=== PATIENT | male | born 1945 | race Caucasian/White ===

== ENCOUNTER 2019-04-07 09:56 | Outpatient (RCR) | payer MEDICARE, OTHER, SELFPAY | END 2019-04-07 23:59 | disposition home or self-care (01) | LOC: DC 09:56 | PROVIDERS: Family Provider Internal Medicine; PCP Internal Medicine; Visit Provider Internal Medicine | DX: E11.9 Type 2 diabetes mellitus without complications (principal); Z71.3 Dietary counseling and surveillance | CPT/HCPCS: 97802 ==

== ENCOUNTER → 2019-06-16 08:01 | Outpatient (CLI) | payer MEDICARE, OTHER, SELFPAY ==
[2019-06-14 05:57] VITALS: BMI 30.1
--- NOTE | 2019-06-14 10:00 | LES_PTH ---
PATIENT: DEBO HULL LOC: [facility] U#:[id number] AGE/SX: 80/M ROOM: RE06/16/[address]: Dr. Allan Gomes MD : 1945 BED: DIS: SPEC #: [id number] RECD: 06/16/19 07:38 STATUS: JUDY DESIRAE #: [id number] TIMO: 06/14/19 10:[address]: Allan Gmoes DEPT: SURGICAL PATHOLOGY RECD BY: Zara Castano ENTERED: 06/16/19 09:39 SP TYPE: Lesion OTHR DR: Dr. Aisha Ramos MD Tissues: A - TISSUE SURGICALLY REMOVED B - Skin of chest Procedures: Surgery Specimen Level IV HEADER OPERATION: Shave biopsy PRE-OP DIAGNOSIS: Right parietal lesion, chest lesion TISSUE SUBMITTED: A. Right parietal tissue, B. Chest tissue MICROSCOPIC DIAGNOSIS A. Skin lesion of parietal region, biopsy: Seborrheic keratosis, inflamed. B. Skin lesion of chest, shave biopsy: Superficial fragments of seborrheic keratosis. See comment. AM:mike 06/17/19 COMMENT B. The lesion extends to the deep margin of excision. Clinical correlation is suggested. MICROSCOPIC DESCRIPTION Slides are reviewed. GROSS DESCRIPTION A - Received in fixative is one container labeled with the patient's name and designated right parietal tissue. The specimen consists of a piece of elena-white skin ellipse measuring 4 x 2 cm and up to 0.5 cm in thickness. The skin surface shows a raised area measuring 2.5 x 1.5 cm. The specimen is inked, serially sectioned and submitted entirely in four cassettes. Cassette 1 contains the tips of the skin ellipse. B - Received in fixative is one container labeled with the patient's name and designated right chest. The specimen consists of a piece of elena-white skin measuring 0.5 x 0.3 x 0.1 cm. The specimen is inked and submitted entirely in one cassette. It will be bisected at the time of embedding. / SJ:mike 06/16/19 TC:5 CPT: 72912 x2
== END ==
PROVIDERS: Family Provider Internal Medicine; PCP Internal Medicine; Referring Provider Surgery; Visit Provider Surgery
DX: L82.0 Inflamed seborrheic keratosis (principal); L82.1 Other seborrheic keratosis
CPT/HCPCS: 88305

== ENCOUNTER → 2021-06-16 16:16 | Outpatient (CLI) | payer MEDICARE, OTHER, SELFPAY ==
--- NOTE | 2021-06-16 16:24 | CT_ITS ---
INDICATION: GROSS HEMATURIA EXAMINATION: CT ABDOMEN AND PELVIS WITH AND WITHOUT CONTRAST - CT Abdomen And Pelvis WO/W Contrast Injection TECHNIQUE: Helically acquired images were obtained of the abdomen and pelvis both before and after IV contrast. A radiation dose optimization technique was used for this scan. IV Contrast dosage and agent: 100 mL of ISOVUE 300 was administered intravenously. Oral contrast: None. COMPARISON: None. FINDINGS: LOWER CHEST: Lung bases are clear. No cardiomegaly or pericardial effusion. LIVER: Homogeneous. No focal mass. Multiple low-attenuation lesions visualized in the liver suggestive of simple cysts, the largest of which measures 2.1 x 1.6cm. GALLBLADDER AND BILIARY TREE: No calcified gallstones. No gallbladder distension or wall edema. No intra- or extrahepatic biliary ductal dilation. PANCREAS: No focal cystic or solid mass. SPLEEN: Normal size without focal cystic or solid mass. ADRENAL GLANDS: No nodules. KIDNEYS AND URETERS: Bilateral kidneys demonstrate unremarkable size and shape, unremarkable enhancement. Calcification visualized in the upper pole of the left kidney, nonobstructive no evidence of hydronephrosis or hydroureter is visualized bilaterally. No evidence of parenchymal renal masses. PERITONEUM: No ascites or free air. No other fluid collection. Mild stranding of the mesenteric fat planes visualized most prominent in the midabdomen seen on axial series 3 image 51. BOWEL: No evidence of acute appendicitis. No stomach or bowel distension. No focal inflammatory change. LYMPH NODES: Extensive scattered peritoneal lymph nodes are visualized that demonstrate mild enhancement largest of which measures 1.0 cm VESSELS: Aorta is non-dilated. URINARY BLADDER: Marked thickening of the wall of the urinary bladder is visualized, mild wall irregularity is visualized, there is an enhancing mass visualized in the posterior inferior best visualized on axial series 3 image 107 and coronal series 601 image 76 seen measuring 2.4 x 1.3 x 3.8 cm REPRODUCTIVE ORGANS: Enlargement of the prostate gland with heterogeneous enhancement and subtle scattered peripheral calcifications. ABDOMINAL WALL: No discrete abdominal wall hernia. Bilateral inguinal hernia with herniation of omentum is seen. Bilateral enhancing inguinal lymph nodes are seen. BONES: Degenerative bone changes. No lytic or blastic abnormality. CT/CT Abd/Pelvis W/WO Contrast IMPRESSION: 3.8 cm mass within the urinary bladder suggestive of malignancy. Marked thickening of the wall of the urinary bladder. Prominent prostate gland with heterogeneous enhancement and scattered calcifications. Bilateral enhancing inguinal lymph nodes are seen. Subtle scattered peritoneal lymph nodes visualized. Mild stranding of the peritoneal fat planes in the mid abdomen surrounding the mesenteric vessels, suggestive of vianca mesentry that could indicate underlying infiltration of the lymphatic system with malignancy. Electronically Signed: Sage Torrez MD at 10:08 EDT Tel , Service support ,
[2021-06-16 17:11] LABS: CREATININE FINGERSTICK 0.8 mg/dL (0.70-1.30); EGFR FINGERSTICK > 60.0000 mL/min (>60)
== END ==
PROVIDERS: PCP Internal Medicine; Referring Provider Nurse Practitioner Adult Health; Visit Provider Nurse Practitioner Adult Health
DX: R31.0 Gross hematuria (principal)
CPT/HCPCS: 74178; Q9967

== ENCOUNTER 2021-06-22 11:31 | Day surgery (SDC) | payer MEDICARE, OTHER, SELFPAY ==
--- NOTE | 2021-06-16 16:11 | EKG12_ITS ---
Test Reason : PRE-OP Blood Pressure : / mmHG Vent. Rate : 060 BPM Atrial Rate : 060 BPM P-R Int : 158 ms QRS Dur : 090 ms QT Int : 424 ms P-R-T Axes : 037 -15 -06 degrees QTc Int : 424 ms Normal sinus rhythm Normal ECG Confirmed by SENAIT EID, PEACE ([id number]), technical editor NEVILLE ANGLIN ([id number]) on 06/20/2021 10:54:58 AM Referred By: Teo Bee Confirmed By:CYNTHIA SAPP MD
[2021-06-22] VITALS (8 sets, daily range): BP systolic 107–128; BP diastolic 58–78; PULSE 53–62; RESP 16–18; TEMP 35.8–36.6; O2SAT 94–100; BMI 29.2
[2021-06-22] MEDS: Lactated Ringers 1,000 ML 100 ML IV (12:23)
[2021-06-22 12:31] LABS: Bedside Glucose 135 mg/dL (70-110)
--- NOTE | 2021-06-22 13:39 | HP.PCM_ITS ---
HPI - General HPI Narrative DEBO HULL, is a 76 M who presents transurethral resection of bladder tumor [facility] Medical History (Updated 06/15/21 @ 12:22 by Elisa Mata) Arthritis Asthma Diabetes Former smoker High blood cholesterol History of echocardiogram History of stress test Skin lesion Thyroid disease Wears glasses Home Medications atorvastatin 20 mg tablet 20 mg PO QDAY 09/07/17 [History Last Taken Unknown] finasteride 5 mg tablet 5 mg PO QDAY 09/07/17 [History Last Taken Unknown] levothyroxine 125 mcg capsule 125 mcg PO QDAY cap 09/07/17 [History Last Taken 06/22/21 07:00] sertraline 50 mg tablet 50 mg PO QDAY 09/07/17 [History Last Taken Unknown] sildenafil 100 mg tablet 100 mg PO ONCE PRN 09/07/17 [History Last Taken Unknown] tamsulosin 0.4 mg capsule 0.4 mg PO QDAY 09/07/17 [History Last Taken Unknown] albuterol sulfate 1 puff INHALATION PRN PRN 06/15/21 [History Last Taken Unknown] ciprofloxacin HCl [Cipro] 500 mg PO BID #14 tab 06/22/21 [Rx Last Taken Unknown] ibuprofen 600 mg PO Q6H PRN #14 tab 06/22/21 [Rx Last Taken Unknown] Allergy/AdvReac Type Severity Reaction Status Date / Time No Known Allergies Allergy Verified 06/15/21 12:09 Family History Mother Colon cancer Grandmother Colon cancer Grandfather CVA (cerebral vascular accident) Grandmother CVA (cerebral vascular accident) Surgical History (Updated 06/15/21 @ 12:22 by Elisa Mata) History of thyroidectomy Hx of colonoscopy Social History (Updated 08/05/19 @ 08:52 by Jade GAO PAPatricioC) Smoking Status: Former smoker alcohol intake: never Vital Signs Vital Signs Vital Signs: 06/22/21 11:59 06/22/21 12:02 Temperature 97.1 F L Temperature Source Temporal Pulse Rate 59 L Respiratory Rate 18 Respiratory Pattern Normal Blood Pressure 128/76 H Blood Pressure Mean 93 Blood Pressure Source Monitor Blood Pressure Position Semi-Fowlers Blood Pressure Location Left Arm Pulse Ox 100 Oxygen Delivery Method Room Air Weight Weight: 92.533 kg Body Mass Index (BMI) 29.2 Results Lab / Micro Data Labs: Laboratory Results - last 24 hr 06/22/21 11:51: POC Glucose 135 H
--- NOTE | 2021-06-22 13:40 | BLB_PTH ---
PATIENT: DEBO HULL LOC: [facility] [place] U[place][id number] AGE/SX: 76/M ROOM: RE06/22/[address]: Dr. Teo Bee MD : 1945 BED: DIS: 06/22/2021 SPEC #: [id number] RECD: 06/22/21 14:53 STATUS: JUDY RECharanjit #: [id number] TIMO: 06/22/21 13:[address]: Teo Bee DEPT: SURGICAL PATHOLOGY RECD BY: Celestina Higgins ENTERED: 06/23/21 07:36 SP TYPE: TURB OTHR DR: Dr. Aisha Ramos MD Tissues: Urinary bladder, NOS Procedures: Surgery Specimen Level V HEADER OPERATION: TURBT, large and instillation of Bryce C PRE-OP DIAGNOSIS: Gross hematuria, neoplasm of bladder, BPH with lower urinary tract symptoms TISSUE SUBMITTED: Bladder tumor MICROSCOPIC DIAGNOSIS Bladder tumor, TUR: Papillary urothelial carcinoma, invasive. See cancer summary in the comment section. AMINAH:mike 06/24/2021 COMMENT BLADDER CANCER (TUR) SUMMARY Procedure: Transurethral resection of bladder (TURBT) Tumor site: Not specified Histologic type: Papillary urothelial carcinoma, invasive Histologic grade: low grade (2/3). Tumor configuration: Papillary and endophytic Muscularis propria presence: muscularis propria (detrusor muscle) present. Lymphvascular invasion: Not identified Tumor extension: Tumor invades lamina propria (subepithelial connective tissue). Additional pathologic findings: Chronic follicular cystitis. - Amorphous calcified material, consistent with calculi. The above summary is in compliance with [employer] (CAP) Cancer Protocols Checklist and [place] Joint Committee on Cancer (AJCC), Staging Manual, 8th Ed. MICROSCOPIC DESCRIPTION Slides are reviewed. GROSS DESCRIPTION Received in fixative is one container labeled with the patient's name and designated bladder tumor. The specimen consists of multiple irregular fragments of elena-brown soft tissue that in aggregate measure 5 x 3 x 0.6 cm. The specimen is totally submitted in six cassettes. / SJ:rg 06/23/21 TC:0 CPT: 05112 ADDENDUM ADDENDUM ADDENDUM ADDENDUM ADDENDUM ADDENDUM ADDENDUM ADDENDUM ADDENDUM ADDENDUM ADDENDUM ADDENDUM 01/30/2023 09:05 ADDENDUM 01/30/2023 09:05 ADDENDUM 01/30/2023 09:05 ADDENDUM 01/30/2023 09:05 ADDENDUM 01/30/2023 09:05 This addendum is added to incorporate an outside pathology consultation report. The case was examined at [facility] (#[id number]) and the following diagnosis was rendered. Bladder tumor, TUR: Invasive urothelial carcinoma with inverted growth pattern, high grade. Lamina propria invasion is present. Muscularis propria is negative for neoplasia. Please see complete above mentioned consultation report in EMR
--- NOTE | 2021-06-22 13:40 | PCM.DC ---
Discharge Instructions Diet Discharge Diet: No restrictions Activity Discharge Activity: Return to Normal Activity and May Not Drive (while taking narcotic pain medications.) Dressing / Incision Call your doctor if you observe: Fever of 101 or Higher Follow Up Care Please Follow Up With: Teo Bee MD When: Call [phone] for an appointment Test Results: Test results from this visit will be discussed in further detail at your follow-up appointment, if applicable. Discharge Plan Admission Primary Reason for Your Visit: Transurethral resection of bladder cancer Attending Provider: Teo Bee Primary Care Provider: Aisha Ramos Instructions Patient Instructions: Discharge Instructions for ... Discharge Orders/Prescriptions Prescriptions: New ciprofloxacin HCl [Cipro] 500 mg tablet 500 mg PO BID Qty: 14 RF: 0 ibuprofen 600 mg tablet 600 mg PO Q6H PRN (Reason: pain) Qty: 14 RF: 0 Continued sertraline 50 mg tablet 50 mg PO QDAY RF: 0 finasteride [Proscar] 5 mg tablet 5 mg PO QDAY RF: 0 tamsulosin 0.4 mg capsule,extended release 24hr 0.4 mg PO QDAY RF: 0 atorvastatin [Lipitor] 20 mg tablet 20 mg PO QDAY RF: 0 sildenafil 100 mg tablet 100 mg PO ONCE PRN (Reason: Edema) RF: 0 levothyroxine 125 mcg capsule 125 mcg capsule 125 mcg PO QDAY RF: 0 albuterol sulfate 90 mcg/actuation HFA aerosol inhaler 1 puff INHALATION PRN PRN (Reason: ALLERGIES) RF: 0 Referrals / Follow Up: Teo Bee MD [STAFF PHYSICIAN] - Aisha Ramos MD [Primary Care Provider] - Disposition Disposition (needs filled in before D/C Order can be placed): Home, Self Care
[2021-06-22] MEDS: Cefazolin 2 GM in 0.9% Normal Saline 100 ML IV (13:42)
--- NOTE | 2021-06-22 14:27 | OP.PCM_ITS ---
Report of Operation Date of Procedure: 06/22/21 Pre-Operative Diagnosis: Large bladder tumor gross hematuria Post-Operative Diagnosis: Same Surgery/Procedure Performed:: Transurethral resection of a large bladder tumor instillation mitomycin-C Description of Surgical Findings:: 76-year-old male presented my office with painless gross hematuria and cystoscopy in the office demonstrated tumor in the bladder now comes into the surgery rose for transurethral section of this tumor instillation of chemotherapy in the bladder, patient was taken back to the operating room at the smooth induction of general anesthesia he was placed in dorsolithotomy position. I went to the bladder with a 24 Malawian resectoscope with no continuous-flow we prepped and draped the penis in usual sterile fashion. On inspection of the inside of the bladder there was a large 6-1/2 cm tumor in the trigone area of the bladder, after extensive search the left and right ureter orifice were identified and not involved. I then resected the tumor with the resectoscope resected superficially first and then resected down to the muscle layers the tumor appeared to be probably not invasive into the muscle but did appear to involve the lamina propria resection. And it was a very large tumor a lot of chips were removed and sent off to the pathologist for a specimen cauterized the base of the resection site so there was no bleeding placed a 20 Malawian catheter into the bladder with 30 cc balloon and then we gave him a treatment of chemotherapy in the bladder with mitomycin-C 40 mg of 40 cc the catheter was clamped for 1 hour afterwards and then released and then he will go home with a catheter. Surgeon: blayne Type of Anesthesia: General Drains: 20 fr Admit VTE Documentation VTE Present on Admission: No VTE Mechan Device Prophylaxis: SCD's VTE Pharm Prophylaxis ordered?: No
[2021-06-22 15:05] LABS: Bedside Glucose 120 mg/dL (70-110)
--- NOTE | 2021-06-22 15:18 | SUR.PHASEII ---
Phase 2 in PACU d/t staffing. VSS. Patient tolerating Bryce C instillation.
--- NOTE | 2021-06-22 15:53 | SUR.PHASEII ---
1536; hamilton unclamped and emptied for 200mL
== END 2021-06-22 16:25 | disposition home or self-care (01) ==
LOC: SDC 11:31 → AC 11:31
PROVIDERS: PCP Internal Medicine; Referring Provider Urology; Visit Provider Urology
PROC: 0T5B8ZZ Destruction of Bladder, Via Natural or Artificial Opening Endoscopic (ICD-10-PCS; CPT 51720; principal; 2021-06-22 13:30)
DX: C67.0 Malignant neoplasm of trigone of bladder (principal); J45.909 Unspecified asthma, uncomplicated; E11.9 Type 2 diabetes mellitus without complications; E03.9 Hypothyroidism, unspecified; Z79.899 Other long term (current) drug therapy; Z87.891 Personal history of nicotine dependence; Z79.890 Hormone replacement therapy
CPT/HCPCS: 00912; 51720; 52240; 82962; 88307; 93005; J7120; J2405; J3490; J9280

== ENCOUNTER → 2021-07-28 17:04 | Outpatient (CLI) | payer MEDICARE, OTHER, SELFPAY | PROVIDERS: PCP Internal Medicine; Visit Provider Urology | DX: R31.0 Gross hematuria (principal) | CPT/HCPCS: 87086 ==

== ENCOUNTER → 2021-08-01 16:42 | Outpatient (CLI) | payer MEDICARE, OTHER, SELFPAY ==
--- NOTE | 2021-08-01 | CYSPIN_PTH ---
PATIENT: DEBO HULL LOC: [facility] U#:[id number] AGE/SX: 80/M ROOM: RE08/01/[address]: Dr. Teo Bee MD : 1945 BED: DIS: SPEC #: [id number] RECD: 08/02/21 09:07 STATUS: JUDY DESIRAE #: [id number] TIMO: 08/01/21 00:[address]: Teo Bee DEPT: CYTOLOGY RECD BY: Ken Michelle ENTERED: 08/02/21 09:07 SP TYPE: CYSPIN FL OTHR DR: Dr. Aisha Ramos MD Tissues: Urine Procedures: Pap Stain (control) Special Stain Group II Cytospin Fluid HEADER OPERATION: Not noted PRE-OP DIAGNOSIS: Malignant neoplasm of bladder TISSUE SUBMITTED: Urine for cytology DIAGNOSIS CYTOLOGY Urine for cytology (cytospin): Positive for malignant cells consistent with urothelial carcinoma. AM:mike 08/02/2021 COMMENT Reference is made to the patient's urinary bladder, TUR ([id number]) in which invasive urothelial carcinoma was identified. CYTOLOGY STUDY Slides are reviewed. CYTOLOGY GROSS Received is 20 ml of gold cloudy fluid labeled with the patient's name and and designated per the requisition as urine. Submitted for cytology preparation. / mike 08/02/2021 TC:0 [facility]: [id number]
[2021-08-01 17:39] LABS: Cytology, Body Fluid / CSF SEE PATHOLOGY REPORT
== END ==
PROVIDERS: PCP Internal Medicine; Referring Provider Urology; Visit Provider Urology
DX: C67.0 Malignant neoplasm of trigone of bladder (principal)
CPT/HCPCS: 88108; 88313

== ENCOUNTER 2021-08-19 12:17 | Day surgery (SDC) | payer MEDICARE, OTHER, SELFPAY ==
[2021-08-19] VITALS (9 sets, daily range): BP systolic 115–125; BP diastolic 65–77; PULSE 58–90; RESP 16–18; TEMP 36.1–36.6; O2SAT 92–98; BMI 29.8
[2021-08-19] MEDS: Lactated Ringers 1,000 ML 15 ML IV (13:32)
[2021-08-19 13:41] LABS: Bedside Glucose 121 mg/dL (70-110)
--- NOTE | 2021-08-19 14:23 | PCM.HP.STD ---
HPI - General HPI Narrative DEBO HULL, is a 76 M who presents for transurethral resection of the bladder cancer and restaging resection he still had positive cytologies he underwent resection earlier for a very large tumor and his urine cytology came back positive inside the bladder so has a lot of inflammation there is concerned that the bladder is very thickened so we will get deeper biopsies of the bladder to rule out invasive cancer. PFSH Medical History (Updated 08/12/21 @ 15:06 by Bethany Peterson) Arthritis Asthma Diabetes Former smoker High blood cholesterol History of echocardiogram History of stress test Skin lesion Thyroid disease Wears glasses Home Medications atorvastatin 20 mg tablet 20 mg PO QDAY 09/07/17 [History Last Taken Unknown] finasteride 5 mg tablet 5 mg PO QDAY 09/07/17 [History Last Taken Unknown] levothyroxine 125 mcg capsule 125 mcg PO QDAY cap 09/07/17 [History Last Taken 08/19/21] sertraline 50 mg tablet 50 mg PO QDAY 09/07/17 [History Last Taken Unknown] sildenafil 100 mg tablet 100 mg PO ONCE PRN 09/07/17 [History Last Taken Unknown] tamsulosin 0.4 mg capsule 0.4 mg PO QDAY 09/07/17 [History Last Taken Unknown] albuterol sulfate 1 puff INHALATION PRN PRN 06/15/21 [History Last Taken Unknown] ibuprofen 600 mg PO Q6H PRN #14 tab 06/22/21 [Rx Last Taken Unknown] oxycodone-acetaminophen 1 tab PO Q4H PRN 7 Days #14 tab 08/19/21 [Rx Last Taken Unknown] sulfamethoxazole-trimethoprim [Bactrim DS] 1 tab PO BID #14 tab 08/19/21 [Rx Last Taken Unknown] Allergy/AdvReac Type Severity Reaction Status Date / Time No Known Allergies Allergy Verified 08/19/21 13:17 Family History Mother Colon cancer Grandmother Colon cancer Grandfather CVA (cerebral vascular accident) Grandmother CVA (cerebral vascular accident) Surgical History (Updated 08/19/21 @ 14:[address] Teo Bee MD) History of thyroidectomy Hx of colonoscopy Hx of transurethral destruction of bladder lesion Social History (Updated 08/05/19 @ 08:52 by Jade GAO PA-C) Smoking Status: Former smoker alcohol intake: never Vital Signs Vital Signs Vital Signs: 08/19/21 13:18 Temperature 97.5 F L Temperature Source Temporal Pulse Rate 61 Respiratory Rate 18 Respiratory Pattern Normal Blood Pressure 115/71 Blood Pressure Mean 85 Blood Pressure Source Monitor Blood Pressure Position Semi-Fowlers Blood Pressure Location Left Arm Pulse Ox 98 Oxygen Delivery Method Room Air Weight Weight: 94.3 kg Body Mass Index (BMI) 29.8 Results Lab / Micro Data Labs: Laboratory Results - last 24 hr 08/19/21 13:13: POC Glucose 121 H
--- NOTE | 2021-08-19 14:24 | PCM.DC ---
Discharge Instructions Diet Discharge Diet: No restrictions Activity Discharge Activity: Return to Normal Activity and May Not Drive (while taking narcotic pain medications.) Dressing / Incision Call your doctor if you observe: Fever of 101 or Higher Follow Up Care Please Follow Up With: Teo Bee MD When: Call [phone] for an appointment Test Results: Test results from this visit will be discussed in further detail at your follow-up appointment, if applicable. Discharge Plan Admission Primary Reason for Your Visit: bladder resection. Attending Provider: Teo Bee Primary Care Provider: Aisha Ramos Discharge Orders/Prescriptions Prescriptions: New sulfamethoxazole-trimethoprim [Bactrim DS] 800-160 mg tablet 1 tab PO BID Qty: 14 RF: 0 oxycodone-acetaminophen 5-325 mg tablet 1 tab PO Q4H PRN (Reason: pain) 7 Days Qty: 14 RF: 0 Continued sertraline 50 mg tablet 50 mg PO QDAY RF: 0 finasteride [Proscar] 5 mg tablet 5 mg PO QDAY RF: 0 tamsulosin 0.4 mg capsule,extended release 24hr 0.4 mg PO QDAY RF: 0 atorvastatin [Lipitor] 20 mg tablet 20 mg PO QDAY RF: 0 sildenafil 100 mg tablet 100 mg PO ONCE PRN (Reason: Edema) RF: 0 levothyroxine 125 mcg capsule 125 mcg capsule 125 mcg PO QDAY RF: 0 albuterol sulfate 90 mcg/actuation HFA aerosol inhaler 1 puff INHALATION PRN PRN (Reason: ALLERGIES) RF: 0 ibuprofen 600 mg tablet 600 mg PO Q6H PRN (Reason: pain) Qty: 14 RF: 0 Referrals / Follow Up: Teo Bee MD [STAFF PHYSICIAN] - Aisha Ramos MD [Primary Care Provider] - Disposition Disposition (needs filled in before D/C Order can be placed): Home, Self Care
--- NOTE | 2021-08-19 14:35 | BLB_PTH ---
PATIENT: DEBO HULL LOC: [facility] – [place] U#:[id number] AGE/SX: 76/M ROOM: RE08/19/[address]: Dr. Teo Bee MD : 1945 BED: DIS: 08/19/2021 SPEC #: [id number] RECD: 08/22/21 07:31 STATUS: JUDY DESIRAE #: [id number] TIMO: 08/19/21 14:[address]: Teo Bee DEPT: SURGICAL PATHOLOGY RECD BY: Ken Michelle ENTERED: 08/22/21 11:10 SP TYPE: TURB OTHR DR: Dr. Aisha Ramos MD Tissues: Urinary bladder, NOS Procedures: Surgery Specimen Level V HEADER OPERATION: Cysto, transurethral resection bladder, [place] PRE-OP DIAGNOSIS: Malignant neoplasm of bladder; gross hematuria TISSUE SUBMITTED: Bladder tissue biopsy MICROSCOPIC DIAGNOSIS Urinary bladder, transurethral resection: Papillary urothelial carcinoma. See synoptic report below. AM:mike 08/23/2021 COMMENT BLADDER CANCER (TUR) SUMMARY Procedure: Transurethral resection of bladder (TURBT) Tumor site: Not specified Histologic type: Papillary urothelial carcinoma, noninvasive Histologic grade: Low grade (1/3) Tumor configuration: Papillary Muscularis propria invasion: Not identified (detrusor muscle present) Lamina propria invasion: Not identified Lymphvascular invasion: Not identified Tumor extension: Noninvasive tumor Additional pathologic findings: Acute and chronic inflammation. The above summary is in compliance with [employer] (CAP) Cancer Protocols Checklist and [place] [employer] Committee on Cancer (AJCC), Staging Manual, 8th Ed. Reference is made to the patient's previous TUR ([id number]) in which papillary urothelial carcinoma was identified. MICROSCOPIC DESCRIPTION Slides are reviewed. GROSS DESCRIPTION Received in fixative is one container labeled with the patient's name and designated bladder tissue biopsy. The specimen consists of multiple irregular fragments of light elena soft tissue that in aggregate measure 1.8 x 1.2 x 0.2 cm. The specimen is totally submitted in one cassette. / AM:mike 08/22/21 TC:0 CPT: 46230
--- NOTE | 2021-08-19 15:14 | PCM.OPRPT ---
Report of Operation Date of Procedure: 08/19/21 Pre-Operative Diagnosis: Papillary urothelial carcinoma, invasive. See cancer summary in the comment section.SJ:mike 1COMMENTBLADDER CANCER (TUR) SUMMARYProcedure: Transurethral resection of bladder (TURBT)Tumor site: Not specifiedHistologic type: Papillary urothelial carcinoma, invasiveHistologic grade: low grade (2/3).Tumor configuration: Papillary and endophyticMuscularis propria presence: muscularis propria (detrusor muscle) present.Lymphvascular invasion: Not identified Tumor extension: Tumor invades lamina propria Post-Operative Diagnosis: same Surgery/Procedure Performed:: TURBT, restaging resection large. Description of Surgical Findings:: 76-year-old male who first presented to my office with gross hematuria in June of this past year he was found to have papillary urothelial carcinoma with invasion into the lamina propria at that time I thought I did a complete resection there was muscle in the specimen but no muscle invasion today when taken back for reresection also recent cystoscopy demonstrates some inflammation in the bladder and cytology was positive for cancer cells. Patient was taken back to the operating room after smooth induction of general anesthesia his penis and testicles were prepped and draped in usual sterile fashion, went into the bladder with a 24 Hebrew noncontinuous flow resectoscope identified the left and right ureteral orifice which were under involved the posterior aspect the bladder was very inflamed and thickened I did a resection of this it was a fairly large area resection about 4 cm wide and 5 cm long I then looked at the rest of the bladder I had good muscle in that resection I did not think that there was any active tumor here just some inflammation did not look like a cancer we will see what the pathology shows that she you see if that shows any cancer in the muscle. Rest of the bladder the some areas of inflammation but again no tumors that look visible to the eye just multiple areas of inflammation I cauterized some of these areas of inflammation. After resection was completed cauterization of the bladder was done there was no bleeding I drained the bladder patient anesthetic reversed and I will see him back in a few weeks to review the tissue report and the resection site. Surgeon: blayne Type of Anesthesia: General Drains: none Admit VTE Documentation VTE Present on Admission: No VTE Mechan Device Prophylaxis: SCD's VTE Pharm Prophylaxis ordered?: No
[2021-08-19] MEDS: Lactated Ringers 1,000 ML 100 ML IV (15:31)
[2021-08-19 16:21] LABS: Bedside Glucose 142 mg/dL (70-110)
--- NOTE | 2021-08-19 16:40 | SUR.PHASEI ---
AT 1535, PATIENT ADMITTED TO PACU 5. AUSCULTATED PATIENT'S LUNGS WITH INSPIRATORY WHEEZES BILATERALLY AND DIMINISHED BREATH SOUNDS ON LEFT SIDE. O2 SAT 84% ON ROOM AIR. O2 APPLIED AT 4L/NC. AT APPROXIMATELY, 1550, DUONEB AEROSOL BREATHING TREATMENT INITIATED. WITHIN 30 SECONDS TO 60 SECONDS DEVELOPED AUDIBLE STRIDOR. BREATHING TX DISCONTINUED IMMEDIATELY. DR. GRIMALDO CALLED AND CAME TO BEDSIDE TO EXAMINE PATIENT. DR. GRIMALDO ORDERED A RACEMIC EPI AEROSOL BREATHING TX. PATIENT STATED HE STARTED FEELING BETTER WITHIN 5 MINUTES OF STARTING THE RACEMIC EPI AEROSOL BREATHING TX.
[2021-08-19] MEDS: Racepinephrine HCl 0.5 ML VIAL.NEB. INHALATION (16:41)
--- NOTE | 2021-08-19 16:43 | CPS ---
Pt was given a duoneb at 1551. Pt started having increased difficulty breathing and stridor. Treatment was taken off immediately. Pt was then given a epi treatment.
== END 2021-08-19 17:56 | disposition home or self-care (01) ==
LOC: SDC 12:18 → AC 12:19
PROVIDERS: PCP Internal Medicine; Referring Provider Urology; Visit Provider Urology
PROC: 0TBB8ZZ Excision of Bladder, Via Natural or Artificial Opening Endoscopic (ICD-10-PCS; CPT 52240; principal; 2021-08-19 14:25)
DX: C67.9 Malignant neoplasm of bladder, unspecified (principal); J45.909 Unspecified asthma, uncomplicated; E07.9 Disorder of thyroid, unspecified; E11.9 Type 2 diabetes mellitus without complications; M19.90 Unspecified osteoarthritis, unspecified site; Z87.891 Personal history of nicotine dependence; Z79.899 Other long term (current) drug therapy; Z79.890 Hormone replacement therapy
CPT/HCPCS: 00912; 52240; 82962; 88307; 94640; J7120; A4216; J2405

== ENCOUNTER → 2022-01-19 | Outpatient (CLI) | payer MEDICARE, OTHER, SELFPAY ==
--- NOTE | 2022-01-18 14:00 | LES_PTH ---
PATIENT: DEBO HULL LOC: JESSI U#:[id number] AGE/SX: 76/M ROOM: RE01/19/[address]: Dr. Allan Gomes MD : 1945 BED: DIS: 01/19/2022 SPEC #: [id number] RECD: 01/19/22 11:53 STATUS: JUDY RECharanjit #: [id number] TIMO: 01/18/22 14:[address]: Allan Gomes DEPT: SURGICAL PATHOLOGY RECD BY: Celestina Higgins ENTERED: 01/19/22 12:36 SP TYPE: Lesion OTHR DR: Dr. Aisha Ramos MD Tissues: Skin of nose, NOS Procedures: Surgery Specimen Level IV HEADER OPERATION: Shave biopsy right nare skin lesion PRE-OP DIAGNOSIS: Right nare skin lesion TISSUE SUBMITTED: Right nare skin lesion shave MICROSCOPIC DIAGNOSIS Right nare skin lesion, shave biopsy: Consistent with verrucous keratosis. See comment. AMINAH:mike 01/20/2022 COMMENT The specimen consists of only superficial portion of the lesion. Clinical correlation and appropriate follow up are necessary. Case has been reviewed in consultation with Dr. Seymour who concurs with the above diagnosis. IDC:AM MICROSCOPIC DESCRIPTION Slides are reviewed. GROSS DESCRIPTION Received in fixative is one container labeled with the patient's name and designated right nare shave biopsy. The specimen consists of a fragment of elena-white skin measuring 0.2 x 0.1 x <0.1 cm. The specimen is totally submitted in one cassette. / AMINAH:mike 01/19/2022 TC:5 CPT: 97272
== END | disposition home or self-care (01) ==
LOC: LABSPEC 12:10
PROVIDERS: PCP Internal Medicine; Visit Provider Surgery
DX: L98.9 Disorder of the skin and subcutaneous tissue, unspecified (principal)
CPT/HCPCS: 88305

== ENCOUNTER → 2022-02-23 | Outpatient (CLI) | payer MEDICARE, OTHER, SELFPAY ==
--- NOTE | 2022-02-23 14:38 | CYSPIN_PTH ---
PATIENT: DEBO HULL LOC: JESSI U#:[id number] AGE/SX: 76/M ROOM: RE02/23/[address]: Dr. Teo Bee MD : 1945 BED: DIS: 02/23/2022 SPEC #: [id number] RECD: 02/24/22 07:10 STATUS: JUDY RECharanjit #: [id number] TIMO: 02/23/22 14:[address]: Teo Bee DEPT: CYTOLOGY RECD BY: Celestina Higgins ENTERED: 02/24/22 07:11 SP TYPE: CYSPIN FL OTHR DR: Dr. Aisha Ramos MD Tissues: Urine Procedures: Pap Stain (control) Special Stain Group II Cytospin Fluid HEADER OPERATION: Not noted PRE-OP DIAGNOSIS: Bladder neoplasm TISSUE SUBMITTED: Urine for cytology DIAGNOSIS CYTOLOGY Urine for cytology (cytospin): Negative for malignant cells. Marked acute inflammation. See comment. SJ:mike 02/24/2022 COMMENT Degenerative urothelial cells are also noted. Numerous organisms consistent with bacteria are also present. 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 CYTOLOGY STUDY Slides are reviewed. CYTOLOGY GROSS Received is 15.5 ml of yellow cloudy fluid labeled with the patient's name and and designated per the requisition as urine. Submitted for cytology preparation. / mike 02/23/2022 TC:2 CPT: 17166
[2022-02-23 17:51] LABS: Cytology, Body Fluid / CSF SEE PATHOLOGY REPORT
== END | disposition home or self-care (01) ==
PROVIDERS: PCP Internal Medicine; Visit Provider Urology
DX: C67.0 Malignant neoplasm of trigone of bladder (principal); R31.9 Hematuria, unspecified
CPT/HCPCS: 87077; 87086; 87088; 87186; 88108; 88313

== ENCOUNTER → 2022-05-29 | Outpatient (CLI) | payer MEDICARE, OTHER, SELFPAY ==
--- NOTE | 2022-05-29 09:17 | CYSPIN_PTH ---
PATIENT: DEBO HULL LOC: JESSI U#:[id number] AGE/SX: 77/M ROOM: RE05/29/[address]: Dr. Teo Bee MD : 1945 BED: DIS: 05/29/2022 SPEC #: [id number] RECD: 05/29/22 15:00 STATUS: JDUY MERRILL #: [id number] TIMO: 05/29/22 09:[address]: Teo Bee DEPT: CYTOLOGY RECD BY: Zara Castano ENTERED: 05/30/22 07:41 SP TYPE: CYSPIN FL OTHR DR: Dr. Aisha Ramos MD Tissues: Urine Procedures: Pap Stain (control) Special Stain Group II Cytospin Fluid HEADER OPERATION: Not noted PRE-OP DIAGNOSIS: Bladder cancer TISSUE SUBMITTED: Urine for cytology DIAGNOSIS CYTOLOGY Urine for cytology (cytospin): Negative for high-grade urothelial carcinoma (Marlen Cytology Category II). See comment. SJ:mike 05/30/2022 COMMENT The Marlen System for urine cytology diagnostic categorization was used in the evaluation of this case. Please make reference to previous specimens ([id number]) bladder tumor, TUR with diagnosis of ?papillary urothelial carcinoma, invasive? and ([id number]) urine for cytology with diagnosis of ?positive for malignant cells consistent with urothelial carcinoma.? CYTOLOGY STUDY Slides are reviewed. CYTOLOGY GROSS Received is 70 ml of cloudy yellow fluid labeled with the patient's name and and designated per the requisition as urine. Submitted for cytology preparation. / mike 05/29/2022 TC:5 CPT: 99806
[2022-05-29 17:16] LABS: Cytology, Body Fluid / CSF SEE PATHOLOGY REPORT
== END | disposition home or self-care (01) ==
LOC: LABSPEC 16:48
PROVIDERS: PCP Internal Medicine; Visit Provider Urology
DX: C67.8 Malignant neoplasm of overlapping sites of bladder (principal)
CPT/HCPCS: 88108; 88313

== ENCOUNTER → 2022-11-24 | Outpatient (CLI) | payer MEDICARE, OTHER, SELFPAY ==
--- NOTE | 2022-11-24 09:44 | CDU_ITS ---
Reason For Study: Amaurosis fugax Rt. Velocities/BP Lt. Velocities/BP Prox CCA 74.9/11.6 cm/sec. Prox CCA 76.8/12.6 cm/sec. Mid CCA 63.6/17.3 cm/sec. Mid CCA 77.8/19.2 cm/sec. Dist CCA 65.5/17.3 cm/sec. Dist CCA 59.8/16.3 cm/sec. Prox ICA 40.9/12.6 cm/sec. Prox ICA 58.9/16.3 cm/sec. Mid ICA 65.5/23 cm/sec. Mid ICA 76.2/25.6 cm/sec. Dist ICA 80.6/27.7 cm/sec. Dist ICA 80.6/25.6 cm/sec. Rt. ICA/CCA = 1.23. Lt. ICA/CCA = 1.05. Prox ECA 82.5/9.7 cm/sec. Prox ECA 74/10.7 cm/sec. Rt. Vert. 39/14.5 cm/sec. Lt. Vert. 44.3/14.6 cm/sec. Right Extracranial There is homogeneous, smooth atherosclerotic plaque noted in the right common carotid artery. There is homogeneous, smooth atherosclerotic plaque noted in the right internal carotid artery. There is intimal thickening but no significant atherosclerotic plaque noted in the right external carotid artery. Antegrade flow is noted in the right vertebral artery. Left Extracranial There is homogeneous, smooth atherosclerotic plaque noted in the left common carotid artery. There is intimal thickening but no significant atherosclerotic plaque noted in the left internal carotid artery. There is intimal thickening but no significant atherosclerotic plaque noted in the left external carotid artery. Antegrade flow is noted in the left vertebral artery. Procedure This is a Carotid Duplex examination using B-mode, color flow and specral Doppler. Carotid Duplex 78770. Exam performed in department. VL/Carotid Duplex Ultrasound Interpretation Summary With plaque at the proximal right internal carotid artery with less than 50% st enosis Less than 50% stenosis right external carotid artery Intimal thickening at the proximal left internal carotid artery with a focal sm all area of calcific plaque left carotid bulb. Less than 50% stenosis left internal carotid artery Less than 50% stenosis left external carotid artery Patent and antegrade vertebral arteries bilaterally Ordering Physician: Jalil Goel Referring Physician: Aisha Ramos M.D. Performed By: Wendie Aguirre RVT
== END | disposition home or self-care (01) ==
LOC: CVS 09:41
PROVIDERS: PCP Internal Medicine; Visit Provider Ophthalmology
DX: G45.3 Amaurosis fugax (principal)
CPT/HCPCS: 93880

== ENCOUNTER → 2022-11-29 | Outpatient (CLI) | payer MEDICARE, OTHER, SELFPAY ==
--- NOTE | 2022-11-29 13:15 | CT_ITS ---
STUDY: CT ABDOMEN AND PELVIS WITH AND WITHOUT CONTRAST REASON FOR EXAM: Male, 77 years old. BENING NEOPLASM OF LYMPH NODES RADIATION DOSAGE (If Supplied By Facility): CTDIvol = ( 18.42 ) mGy, DLP = ( 3812.61 ) mGycm TECHNIQUE: Transaxial images were obtained from the dome of the diaphragm to the symphysis pubis without oral contrast. IV 100mL Isovue-300 was administered. Sagittal and coronal images were reconstructed. Individualized dose optimization techniques were used for this CT. COMPARISON: Comparison is made with prior study June 16, 2012. FINDINGS: The visualized lung bases are unremarkable. The visualized portions of the heart are within normal limits. Stable small cysts in the liver. Normal gallbladder and extrahepatic biliary system. Normal spleen. Normal pancreas. Normal bilateral adrenal glands. Normal right kidney. Normal left kidney. Mild degree of nonspecific bilateral perinephric stranding. Tiny nonobstructive calculi seen in the upper pole calyx of the left kidney. There is evidence of a retroaortic left renal vein. Normal visualized stomach. Normal small intestine. Normal colon. The appendix is visualized and appears normal. Normal abdominal aorta. Normal inferior vena cava. Normal retroperitoneum. Diffuse bladder wall thickening. The previously seen enhancing mass at the base of the bladder posteriorly has decreased in size. Prostatic enlargement. The prostate measures 4.6 times by 5.2 cm. This causes indentation at the bladder base. Normal abdominal wall. There are diffuse degenerative changes of the visualized lumbar spine. CT/CT Abd/Pelvis W/WO Contrast IMPRESSION: Diffuse bladder wall thickening with prostatic enlargement and prostatic calcifications. There is evidence of indentation of the bladder base. Stable hepatic cysts. Electronically Signed: Yovani Mcwilliams MD at 15:56 EDT ,
[2022-11-29 13:30] LABS: CREATININE FINGERSTICK 1.1 mg/dL (0.70-1.30); EGFR FINGERSTICK > 60.0000 mL/min (>60)
== END | disposition home or self-care (01) ==
LOC: CT 12:53
PROVIDERS: PCP Internal Medicine; Referring Provider Urology; Visit Provider Urology
DX: D36.0 Benign neoplasm of lymph nodes (principal); C67.8 Malignant neoplasm of overlapping sites of bladder
CPT/HCPCS: 74178; Q9967

== ENCOUNTER → 2022-12-05 | Outpatient (CLI) | payer MEDICARE, OTHER, SELFPAY ==
--- NOTE | 2022-12-05 | IMM_PTH ---
PATIENT: DEBO HULL LOC: JESSI U#:[id number] AGE/SX: 77/M ROOM: RE12/05/[address]: Dr. Allan Gomes MD : 1945 BED: DIS: 12/05/2022 SPEC #: [id number] RECD: 12/07/22 14:01 STATUS: JUDY REQ #: [id number] TIMO: 12/05/22 00:[address]: Allan Gomes DEPT: IMMUNOHISTOCHEMISTRY RECD BY: Lyn Watson ENTERED: 12/07/22 14:04 SP TYPE: IMMUNO OTHR DR: Dr. Aisha Ramos MD Tissues: Inguinal lymph node, NOS Procedures: RCC (add) NAPSIN A (add) CK20 (add) CK5-6 (add) CK7 (add) CK8 (add) HEP PAR (add) KI-67 (add) P53 (add) TTF1 (add) Pankeratin (initial) P40 (add) CD44 (add) PSAP (add) PHYSICIAN & [address] [address] SPECIMEN INFORMATION: Tissue Source: Right groin lymph node Clinical Info: Enlarged lymph node right inguinal region Specimen Number: [id number] CPT code: 97006, 45502 x13 METHODOLOGY: Deparaffinized sections of prefer/formalin-fixed tissue or PAP/DQ stained slides are incubated with monoclonal/polyclonal antibodies/oligonucleotide probes. Localization is made via biotin free immunoperoxidase method. Appropriate controls are performed and reacted as expected. Results on target cell population are indicated in the following table: RESULTS: ANTIBODY / CLONE RESULT AE1-3 (AE1/AE3/PCK26) positive CK7 (OV-TL12/30) positive CK8 (01oqtmV36) positive CK20 (KS20.8) negative TTF-1 (8G7G3/1) negative Napsin A (Rabbit Polyclonal) negative HepPar (OCh1E5) negative RCC (PN-15) negative PSAP (PASE/4LJ) negative anti-CD44 (SP37) positive CK5-6 (D5 & 1684) positive, focal P40 (BC28) positive P53 (DO-7) positive, focal, wild-type pattern Ki-67 (30-9) positive, ~50% These tests were developed and their performance characteristics determined by [facility]. They may not have been cleared or approved by the U.S. Food and Drug Administration. The FDA has determined that such clearance or approval is not necessary. The above immunohistochemical/dualISH markers are ordered and reviewed by the Pathologist. INTERPRETATION: Right groin lymph node, ultrasound-guided core biopsy: Metastatic non-small cell carcinoma. See comment. SJ:mike 12/08/2022 Comment: IHC profile is compatible with clinical impression of urothelial primary. Focal squamous differentiation is also noted. Case has been reviewed in consultation with Dr. Seymour who concurs with the above diagnosis. IDC:AM
--- NOTE | 2022-12-05 14:45 | LYMN_PTH ---
PATIENT: DEBO HULL LOC: JESSI U#:[id number] AGE/SX: 77/M ROOM: RE12/05/[address]: Dr. Allan Gomes MD : 1945 BED: DIS: 12/05/2022 SPEC #: [id number] RECD: 12/05/22 15:16 STATUS: JUDY RECharanjit #: [id number] TIMO: 12/05/22 14:[address]: Allan Gomes DEPT: SURGICAL PATHOLOGY RECD BY: Celestina Higgins ENTERED: 12/06/22 09:26 SP TYPE: LYMPH NODE OTHR DR: Dr. Aisha Ramos MD Tissues: LYMPH NODE BIOPSY Procedures: Surgery Specimen Level IV HEADER OPERATION: Ultrasound-guided needle core biopsy, lymph node right groin PRE-OP DIAGNOSIS: Enlarged lymph node right inguinal region TISSUE SUBMITTED: Biopsy lymph node right groin MICROSCOPIC DIAGNOSIS Right groin lymph node, core biopsy: Lymph node tissue with metastatic non-small cell carcinoma. See comment. AMINAH:mike 12/07/2022 COMMENT Immunohistochemistry ([id number]) supports the above diagnosis. IHC profile is compatible with clinical impression of urothelial primary. Focal squamous differentiation is also noted. Please make reference to previous specimen [id number], bladder tumor, TUR with diagnosis of invasive urothelial carcinoma. Clinical correlation and appropriate follow up are necessary. Case has been reviewed in consultation with Dr. Seymour who concurs with the above diagnosis. IDC:AM MICROSCOPIC DESCRIPTION Slides are reviewed. GROSS DESCRIPTION Received in fixative is one container labeled with the patient's name and designated biopsy lymph node right groin. The specimen consists of two elongated fragments of elena soft tissue that in aggregate measure 1.5 x 0.3 x 0.1 cm. The specimen is totally submitted in one cassette. / AMINAH:mike 12/06/2022 TC:0 CPT: 19706 ADDENDUM ADDENDUM ADDENDUM ADDENDUM ADDENDUM ADDENDUM ADDENDUM ADDENDUM ADDENDUM ADDENDUM 01/30/2023 09:07 ADDENDUM 01/30/2023 09:07 ADDENDUM 01/30/2023 09:07 ADDENDUM 01/30/2023 09:07 ADDENDUM 01/30/2023 09:07 This addendum is added to incorporate an outside pathology consultation report. The case was examined at [facility] (#[id number]) and the following diagnosis was rendered. Right groin lymph node, core biopsy: Metastatic urothelial carcinoma. Please see complete above mentioned consultation report in EMR
== END | disposition home or self-care (01) ==
LOC: LABSPEC 16:29
PROVIDERS: PCP Internal Medicine; Referring Provider Surgery; Visit Provider Surgery
DX: C68.9 Malignant neoplasm of urinary organ, unspecified (principal); C77.4 Secondary and unspecified malignant neoplasm of inguinal and lower limb lymph nodes
CPT/HCPCS: 88305; 88341; 88342

== ENCOUNTER → 2022-12-20 | Outpatient (CLI) | payer MEDICARE, OTHER, SELFPAY ==
--- NOTE | 2022-12-20 07:04 | MRI_ITS ---
STUDY: MRI BRAIN WITH AND WITHOUT CONTRAST REASON FOR EXAM: Male, 77 years old. staging bladder cancer TECHNIQUE: Standardized multiplanar fat and water weighted pulse sequences were obtained. IV 19cc Clariscan was administered for the contrast portion of the examination. COMPARISON: None. FINDINGS: Normal size of the ventricles and extra-axial spaces for the patient''s age. There are multiple white matter hyperintensities, distributed throughout the deep white matter tracts of the cerebral hemispheres, consistent with moderate chronic white matter ischemic changes. There is no evidence for recent intracranial ischemia or other cause of cytotoxic edema on diffusion weighted imaging (DWI). Normal T2* images of the brain without demonstrated susceptibility artifact. There is no demonstrated hemosiderin stain. There are no focal brain parenchymal lesions or abnormally enhancing lesions. No vasogenic edema or mass effect is seen. There is no abnormal thickening or enhancement of meninges or dura or skull. Normal bilateral basal ganglia. Normal thalami. There is no extra-axial fluid accumulation. Normal flow voids within the major intracranial circulation suggesting patency by spin echo criteria. Normal venous enhancement. There is no enhancing intra-axial or extra-axial abnormality. Normal sella turcica, pituitary gland, infundibular stalk, optic chiasm and hypothalamus. Normal tectal plate and pineal gland. Normal midbrain, slime and medulla. Normal cerebellum. Normal basal cisterns. Normal bilateral temporal bones. Normal bilateral internal auditory canals. No demonstrated orbital abnormality, within the constraints of a routine brain study. Normal visualized paranasal sinuses. Normal calvarium and skull base. Normal visualized soft tissue structures. Normal visualized upper cervical spine. MRI/Brain W/WO Contrast IMPRESSION: 1. Moderate chronic changes of the brain, as described above. 2. There are no focal brain parenchymal lesions or abnormally enhancing lesions. No vasogenic edema or mass effect is seen. There is no abnormal thickening or enhancement of meninges or dura or skull. Electronically Signed: Cornelius Caceres MD at 13:11 EDT ,
== END | disposition home or self-care (01) ==
LOC: MRI 07:04
PROVIDERS: PCP Internal Medicine; Referring Provider Internal Medicine Hematology & Oncology; Visit Provider Internal Medicine Hematology & Oncology
DX: C67.9 Malignant neoplasm of bladder, unspecified (principal)
CPT/HCPCS: 70553; A9575

== ENCOUNTER 2023-02-13 10:37 | Day surgery (SDC) | payer MEDICARE, OTHER, SELFPAY ==
[2023-02-13] VITALS (8 sets, daily range): BP systolic 100–118; BP diastolic 62–81; PULSE 50–65; RESP 16–18; TEMP 36.4–36.6; O2SAT 94–99; BMI 28.4
--- NOTE | 2023-02-13 10:45 | PCM.HP.BLA ---
History and Physical Date of Admission: 02/13/23 Visit Reasons:?PORT PLACEMENT Chief Complaint: port placement Is patient in pain?: No Allergies ipratropium [From Atrovent] Allergy (Severe, Verified 02/12/23 13:17) Other Medications finasteride 5 mg tablet (Proscar) 5 mg PO QDAY 09/07/17 [History Confirmed 02/12/23] sertraline 50 mg tablet 50 mg PO QDAY 09/07/17 [History Confirmed 02/12/23] sildenafil 100 mg tablet 100 mg PO ONCE PRN Edema 09/07/17 [History Confirmed 02/12/23] tamsulosin 0.4 mg capsule 0.4 mg PO QDAY 09/07/17 [History Confirmed 02/12/23] albuterol sulfate 90 mcg/actuation aerosol inhaler 1 puff inhalation PRN PRN ALLERGIES 06/15/21 [History Confirmed 02/12/23] ibuprofen 600 mg tablet 600 mg PO Q6H PRN pain #14 tabs 06/22/21 [Rx Confirmed 02/12/23] atorvastatin 20 mg tablet (Lipitor) 40 mg PO QDAY 12/05/22 [History Confirmed 02/12/23] levothyroxine 125 mcg capsule 25 mcg PO QDAY 12/05/22 [History Confirmed 02/12/23] lidocaine-prilocaine 2.5 %-2.5 % topical cream 1 applic topical ONCE PRN port access 30 days #30 grams 02/07/23 [Rx Confirmed 02/12/23] ondansetron 8 mg disintegrating tablet 8 mg PO Q8H PRN nausea and vomiting #30 tabs 02/07/23 [Rx Confirmed 02/12/23] prochlorperazine maleate 10 mg tablet 10 mg PO Q6H PRN nausea and vomiting #30 tabs 02/07/23 [Rx Confirmed 02/12/23] PFSH Medical History? 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 History of cystoscopy History of thyroidectomy Hx of colonoscopy Hx of transurethral destruction of bladder lesion Family History? Mother Colon cancerGrandmother Colon cancerGrandfather CVA (cerebral vascular accident)Grandmother CVA (cerebral vascular accident) Social History? Smoking Status:? Former smoker alcohol intake:? never HPI HPI HPI: 77-year-old gentleman.? On February 07, 2023 and previous to that as well he was seen by hematology oncology for what was felt to be recurrent metastatic urothelial carcinoma of the right groin lymph node.? By report he has no evidence of additional metastatic disease.? He had a multidisciplinary conference at [facility] and neoadjuvant systemic chemotherapy recommended.? Patient may be considered for lymphadenectomy right groin versus radiation treatment.? He is referred now for placement of a port to facilitate his chemotherapy.? He is to receive cisplatin and gemcitabine ROS General General: No weight change, appetite, fatigue, colon cancer, breast cancer or weakness HEENT HEENT: No difficulty swallowing, eye injury, eye surgery, swollen glands or hoarseness Endo Endocrine: Yes thyroid cancer, Hair loss, heat intolerance and cold intolerance Skin Skin: Yes rash; No changing moles Breast Breast: No left breast lump, right breast lump, nipple discharge, breast pain, abnormal mammogram, abnormal US or breast enlargement Musc Musculoskeletal: Yes arthritis; No back problems, rheumatoid arthritis, gout or joint pain Cardio Cardiovascular: No murmur, pacemaker, heart disease, atrial fibrillation, high blood pressure, heart attack, heart stent, palpitations, shortness of breat with exertion or chest pain Psych Psychiatric: No depression, anxiety or hearing voices Resp Respiratory: No shortness of breath, No sleep apnea, No cough, No COPD, Yes asthma, No emphysema and No wheezing Gastro Gastrointestinal: No abdominal pain, No nausea or vomiting, No diarrhea, No constipation, No blood in stool, No acid reflux, No hemorrhoids, No ulcers, No gallbladder problem and No black,tarry stools Jewel Hematologic: No blood thinners, No blood disorders, No bleeding, No anemia and No blood clots Neuro Neurologic: No system reviewed and no additional complaints, except as documented, No as per HPI, No abnormal gait, No abnormal hearing, No abnormal movements, No abnormal speech, No behavioral changes, No burning sensations, No confusion, No convulsions, No disequilibrium, No dizziness, No localized weakness, No frequent falls, No headache(s), No lack of coordination, No loss of vision, No memory loss, No numbness, No other visual disturbances, No radicular pain, No restless legs, No sensory deficit, No syncope, No tingling, No tremor(s), No weakness and No other Exam Const General: cooperative, comfortable and no acute distress HENMT Head: normal to inspection Eyes General: appearance normal, both eyes and all related structures Neck Neck: normal visual inspection Chest Chest palpation & inspection: normal inspection of the chest Resp Effort & Inspection: normal respiratory effort Auscultation: clear to auscultation bilaterally Cardio Rate: regular rate Rhythm: regular rhythm GI Inspection: normal to inspection Palpation: soft and no hepatosplenomegaly Musc Cervical Spine: normal cervical lordosis Skin General: no rashes or lesions noted Neuro General: patient alert, patient awake and patient oriented x3 Extrem General: no calf tenderness Psych Appearance: grossly normal Assessment and Plan Assessment and Plan (1) 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 It is then likely that he will potentially have radiotherapy to the right groin.? It appears that a right groin lymphadenectomy will not be required at this time and he has been instructed in nor will he require a radical cystectomy.? We will try to schedule and expedite his care.? He is aware of the technique, benefit, risk, alternatives.? We will proceed as noted. Copy: Dr. Aisha Gomes M.D., F.A.C.S I have examined the patient and the H&P has been reviewed. There are no clinical changes since date of exam. Allan Gomes M.D., F.A.C.S.
--- NOTE | 2023-02-13 10:46 | DCINST_ITS ---
Discharge Instructions Procedure Port-A-Cath Diet Discharge Diet: No restrictions (Pain medication may cause nausea. You should typically eat light foods as you take your pain medication.) Activity Discharge Activity: Return to Normal Activity and May Shower (Leave the bandage on for 2-3 days. When you remove the bandage, leave the steri-strips intact until they fall off.) Additional Activity Instructions:: May not drive, work with heavy equipment, or sign legal documents for [address]. [address] if you are no longer taking narcotic pain medications. You may drive when you are no longer taking pain medications. Dressing / Incision Additional Dressing/Incision Instructions:: Leave the bandage on for 2-3 days. When you remove the bandage, leave the steri-strips intact until they fall off. Follow Up Care When: For any difficulties or concerns please contact the office at [phone] An additional office appointment will not be mandatory if you proceed as anticipated postoperatively Test Results: Test results from this visit will be discussed in further detail at your follow- up appointment, if applicable. Discharge Plan Admission Attending Provider: Allan Gomes Primary Care Provider: Aisha Ramos Discharge Orders/Prescriptions Prescriptions: No Action sertraline 50 mg tablet 50 mg PO QDAY finasteride [Proscar] 5 mg tablet 5 mg PO QDAY tamsulosin 0.4 mg capsule,extended release 24hr 0.4 mg PO QDAY sildenafil 100 mg tablet 100 mg PO ONCE PRN (Reason: Edema) levothyroxine 125 mcg capsule 125 mcg capsule 25 mcg PO QDAY atorvastatin [Lipitor] 20 mg tablet 40 mg PO QDAY lidocaine-prilocaine 2.5-2.5 % cream 1 applic topical ONCE PRN (Reason: port access) 30 Days Qty: 30 2RF ondansetron 8 mg tablet,disintegrating 8 mg PO Q8H PRN (Reason: nausea and vomiting) Qty: 30 2RF prochlorperazine maleate 10 mg tablet 10 mg PO Q6H PRN (Reason: nausea and vomiting) Qty: 30 2RF albuterol sulfate 90 mcg/actuation HFA aerosol inhaler 1 puff INHALATION PRN PRN (Reason: ALLERGIES) Label Comments: INHALE 2 PUFFS BY MOUTH EVERY 4 HOURS NEEDED for wheezing/ SHORTNESS OF BREATH DIRECTED ibuprofen 600 mg tablet 600 mg PO Q6H PRN (Reason: pain) Qty: 14 0RF Referrals / Follow Up: Aisha Ramos MD [Primary Care Provider] - Disposition Disposition (needs filled in before D/C Order can be placed): Home, Self Care
[2023-02-13] MEDS: Lactated Ringers 1,000 ML 15 ML IV (11:16)
[2023-02-13 12:27] LABS: Bedside Glucose 170 mg/dL (74-106)
[2023-02-13] MEDS: Cefazolin 2 GM in 0.9% Normal Saline 100 ML IV (13:30)
[2023-02-13] MEDS: Bupivacaine Mpf 0.5% 30 ML VIAL (13:45)
[2023-02-13] MEDS: Lidocaine 1% (20 ml mdv) 20 ML Vial (13:45)
--- NOTE | 2023-02-13 14:08 | OP.PCM_ITS ---
Report of Operation Date of Procedure: 02/13/23 Pre-Operative Diagnosis: Metastatic urinary bladder cancer Post-Operative Diagnosis: Same Surgery/Procedure Performed:: Right internal jugular 6 [place] PowerPort placement Reference [id number], lot [id number], expiry date 11/07/2024 Description of Surgical Findings:: Timeout and informed consent was obtained. 77-year-old gentleman was taken to the operating placed on the table underwent monitored and incision care. Ancef 2 g were given intravenously. The neck and chest were sterilely prepped and draped. 1% lidocaine mixed 50-50 with 0.5% Marcaine was used as a local anesthetic. A total of 24 cc was used. Under ultrasound guidance local was instilled into the right neck and then a micropuncture needle inserted in the right internal jugular vein followed by micropuncture wire and sheath dilator and then exchanged out for an 035 J-wire fluoroscopy demonstrated good positioning. Local was instilled down upon the right chest wall and a transverse incision was made second intercostal space electrocautery was used to make a subcutaneous pocket the tubing was tunneled from the neck to the chest sheath dilator was placed over the wire and the wire and dilator were removed the catheter was Quigley through the sheath the sheath was split the catheter was positioned at the SVC atrial junction the catheter was amputated connected to the port and secured with a port attachment device the port was placed in the pocket secured there with 2-0 silk skin edges proximal interrupted 3-0 Vicryl subdermal stitches the neck site was closed interrupted 5-0 Vicryl subdermal stitch Steri-Strips Telfa OpSite dressings applied the port was accessed it aspirated easily it was flushed with 2 cc of heparinized saline He tolerated the procedure well without apparent complication. Specimens none. Drains none. Blood loss minimal. He was taken to the recovery room in satisfactory condition without apparent complication stat portable chest x-ray is pending. Allan Gomes M.D., F.A.C.S. Surgeon: Allan Gomes Type of Anesthesia: Local MAC Anesthesiologist: Jordan Taylor
--- NOTE | 2023-02-13 14:22 | RAD_ITS ---
STUDY: X-RAY CHEST REASON FOR EXAM: Male, 77 years old. Line placement TECHNIQUE: Single AP portable view of the chest. COMPARISON: None. FINDINGS: A right-sided Port-A-Cath is in place with the tip at the junction of the superior vena cava and right atrium. EKG electrodes are seen. The lungs are clear and expanded. There is no demonstrated pleural abnormality. Normal size heart. Normal mediastinum and xiomara. Normal visualized pulmonary arteries. There is atherosclerotic tortuosity of the aortic arch and descending thoracic aorta. There are diffuse degenerative changes of the visualized thoracic spine. Normal visualized ribs, clavicles, and shoulders. There is no demonstrated abnormality of the visualized soft tissue structures of the upper abdomen. RAD/Chest 1 View (Portable) IMPRESSION: The tip of the right-sided barrera catheter is at the junction of the superior vena cava and right atrium. Electronically Signed: Yovani Mcwilliams MD at 14:44 EDT ,
== END 2023-02-13 15:22 | disposition home or self-care (01) ==
LOC: SDC 10:38 → AC 10:38
PROVIDERS: PCP Internal Medicine; Referring Provider Surgery; Visit Provider Surgery
PROC: (CPT 36561; principal; 2023-02-13 12:45)
DX: Z45.2 Encounter for adjustment and management of vascular access device (principal); C67.9 Malignant neoplasm of bladder, unspecified; E11.9 Type 2 diabetes mellitus without complications; E07.9 Disorder of thyroid, unspecified; J45.909 Unspecified asthma, uncomplicated; Z87.891 Personal history of nicotine dependence; Z79.899 Other long term (current) drug therapy
CPT/HCPCS: 36561; 00532; 71045; 77001; 82962; J7120; J2405

== ENCOUNTER 2023-04-10 16:00 | Outpatient (CLI) | payer MEDICARE, OTHER, SELFPAY | END 2023-04-10 23:59 | disposition home or self-care (01) | LOC: LABSPEC 16:03 | PROVIDERS: PCP Internal Medicine; Referring Provider Urology; Visit Provider Urology | DX: R31.9 Hematuria, unspecified (principal) | CPT/HCPCS: 87086 ==

== ENCOUNTER 2023-04-18 15:40 | Observation (INO) | payer MEDICARE, OTHER, SELFPAY ==
--- NOTE | 2023-04-16 15:58 | EKG12_ITS ---
Test Reason : PREOP Blood Pressure : / mmHG Vent. Rate : 076 BPM Atrial Rate : 076 BPM P-R Int : 144 ms QRS Dur : 084 ms QT Int : 386 ms P-R-T Axes : 049 -02 032 degrees QTc Int : 434 ms Normal sinus rhythm Normal ECG Confirmed by LOVE EID, SHAHNAZ ([id number]), purchase request editor NEVILLE ANGLIN ([id number]) on 04/17/2023 9:39:10 AM Referred By: Teo Bee Confirmed By:SHAHNAZ ALEMAN MD
[2023-04-18] VITALS (9 sets, daily range): BP systolic 98–112; BP diastolic 57–72; PULSE 68–85; RESP 16–18; TEMP 36.2–36.8; O2SAT 94–99; BMI 27.6
[2023-04-18] MEDS: Lactated Ringers 1,000 ML 15 ML IV ×2 (12:32→16:38)
[2023-04-18 13:03] LABS: Bedside Glucose 107 mg/dL (74-106)
--- NOTE | 2023-04-18 14:35 | PROS_PTH ---
PATIENT: DEBO HULL LOC: MS3 U#:[id number] AGE/SX: 78/M [place] [facility] [place]: Dr. Teo Bee MD : [id number] BED: 1 DIS: 04/19/2023 SPEC #: [id number] RECD: 04/19/23 07:36 STATUS: JUDY MERRILL #: [id number] TIMO: 04/18/23 14:[address]: Teo Bee DEPT: SURGICAL PATHOLOGY RECD BY: Celestina Higgins ENTERED: 04/19/23 10:00 SP TYPE: TURP OTHR DR: Dr. 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 Focal chronic inflammation and basal cell hyperplasia. Fragments of stone (gross only). AMINAH:miek 04/20/2023 MICROSCOPIC DESCRIPTION Slides are reviewed. GROSS DESCRIPTION Received is one container labeled with the patient's name and designated prostate tissue. The specimen consists of multiple irregular fragments of pink-elena, rubbery, soft tissue that in aggregate weigh 5.7 gm and measure in aggregate 6.0 x 4.0 x 1.0 cm. A few minute brownish-black stones are identified measuring <0.1 to 0.2 cm in greatest dimension. The entire soft tissue is submitted in six cassettes. The stones are for gross identification only. / AMINAH:mike 04/19/2023 TC:5 CPT: 54006
[2023-04-18] MEDS: Cefazolin 2 GM in 0.9% Normal Saline 100 ML IV (14:54)
--- NOTE | 2023-04-18 15:43 | PCM.HP.STD ---
HPI - General General Date of Service: 04/18/23 Chief Complaint: Frequency and nocturia obstructive prostate HPI Narrative DEBO HULL, is a 78 M who presents for transurethral resection of the prostate he has significant frequency nocturia incomplete bladder emptying we can proceed with a transurethral resection of prostate patient and family member using are aware that the surgery may not alleviate all his symptoms or may take time to recover to have his urinary symptoms improved but hopefully with the surgery he will have improvement in his urinary problems. 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 Prerenal azotemia Skin lesion Thrombocytopenia Thyroid disease Wears glasses Home Medications sertraline 50 mg tablet 50 mg PO QDAY 09/07/17 [History Last Taken 04/17/23] sildenafil 100 mg tablet 100 mg PO ONCE PRN Edema 09/07/17 [History Last Taken Unknown] albuterol sulfate 90 mcg/actuation aerosol inhaler 1 puff inhalation PRN PRN ALLERGIES 06/15/21 [History Last Taken Unknown] ibuprofen 600 mg tablet 600 mg PO Q6H PRN pain #14 tabs 06/22/21 [Rx Last Taken Unknown] atorvastatin 20 mg tablet (Lipitor) 40 mg PO QDAY 12/05/22 [History Last Taken 04/17/23] levothyroxine 125 mcg capsule 25 mcg PO QDAY 12/05/22 [History Last Taken 04/18/23] lidocaine-prilocaine 2.5 %-2.5 % topical cream 1 applic topical ONCE PRN port access 30 days #30 grams 02/07/23 [Rx Last Taken Unknown] ondansetron 8 mg disintegrating tablet 8 mg PO Q8H PRN nausea and vomiting #30 tabs 02/07/23 [Rx Last Taken Unknown] prochlorperazine maleate 10 mg tablet 10 mg PO Q6H PRN nausea and vomiting #30 tabs 02/07/23 [Rx Last Taken Unknown] betamethasone, augmented 0.05 % topical cream 1 applic topical DAILY 02/20/23 [History Last Taken Unknown] glipizide 5 mg tablet 5 mg PO BID 02/27/23 [History Last Taken 04/16/23] bisacodyl 5 mg tablet,delayed release (Dulcolax (bisacodyl)) 5 mg PO DAILY PRN constipation 03/06/23 [History Last Taken 04/17/23] docusate sodium 100 mg capsule (Stool Softener) 100 mg PO DAILY 03/06/23 [History Last Taken 04/17/23] polyethylene glycol 3350 17 gram oral powder packet (Miralax) 17 g PO DAILY PRN constipation 03/12/23 [History Last Taken 04/17/23] ciprofloxacin HCl 500 mg tablet (Cipro) 500 mg PO BID Prevent more infection 04/13/23 [History Last Taken 04/17/23] ciprofloxacin HCl 500 mg tablet (Cipro) 500 mg PO BID #10 tabs 04/18/23 [Rx Last Taken Unknown] Allergy/AdvReac Type Severity Reaction Status Date / Time ipratropium [From Atrovent] Allergy Severe Other Verified 04/16/23 14:50 Family History Mother Colon cancer Grandmother Colon cancer Grandfather CVA (cerebral vascular accident) Grandmother CVA (cerebral vascular accident) Surgical History History of cystoscopy History of thyroidectomy History of transurethral resection of bladder tumor (TURBT) Hx of colonoscopy Hx of transurethral destruction of bladder lesion Social History Smoking Status: Former smoker alcohol intake: never Vital Signs Vital Signs Vital Signs: 04/18/23 12:35 04/18/23 12:35 Temperature 97.7 F L Temperature Source Temporal Pulse Rate 68 Respiratory Rate 18 Respiratory Pattern Normal Blood Pressure 98/57 L Blood Pressure Mean 70 Blood Pressure Source Monitor Blood Pressure Position Semi-Fowlers Blood Pressure Location Left Arm Pulse Ox 99 Oxygen Delivery Method Room Air Weight Weight: 87.543 kg Body Mass Index (BMI) 27.6 Results Lab / Micro Data Labs: Laboratory Results - last 24 hr 04/18/23 12:23: POC Glucose 107 H
--- NOTE | 2023-04-18 15:44 | PCM.DC ---
Discharge Instructions Diet Discharge Diet: No restrictions Activity Discharge Activity: Return to Normal Activity Dressing / Incision Call your doctor if you observe: Fever of 101 or Higher Follow Up Care Please Follow Up With: Teo Bee MD When: Call [phone] for an appointment Test Results: Test results from this visit will be discussed in further detail at your follow-up appointment, if applicable. Discharge Plan Admission Primary Reason for Your Visit: [facility] Attending Provider: Teo Bee Primary Care Provider: Aisha Ramos Instructions Patient Instructions: TUR Home Recovery, [facility] Hospital Recovery Discharge Orders/Prescriptions Prescriptions: New ciprofloxacin HCl [Cipro] 500 mg tablet 500 mg PO BID Qty: 10 0RF Continued sertraline 50 mg tablet 50 mg PO QDAY sildenafil 100 mg tablet 100 mg PO ONCE PRN (Reason: Edema) levothyroxine 125 mcg capsule 125 mcg capsule 25 mcg PO QDAY atorvastatin [Lipitor] 20 mg tablet 40 mg PO QDAY lidocaine-prilocaine 2.5-2.5 % cream 1 applic topical ONCE PRN (Reason: port access) 30 Days Qty: 30 2RF ondansetron 8 mg tablet,disintegrating 8 mg PO Q8H PRN (Reason: nausea and vomiting) Qty: 30 2RF prochlorperazine maleate 10 mg tablet 10 mg PO Q6H PRN (Reason: nausea and vomiting) Qty: 30 2RF betamethasone, augmented 0.05 % cream 1 applic topical DAILY Patient Comments: Apply to rash on body you can see or feel 1x daily as needed. Avoid using on face. glipizide 5 mg tablet 5 mg PO BID Rx Instructions: administer if blood sugar >250 docusate sodium [Stool Softener] 100 mg capsule 100 mg PO DAILY bisacodyl [Dulcolax (bisacodyl)] 5 mg tablet,delayed release (DR/EC) 5 mg PO DAILY PRN (Reason: constipation) polyethylene glycol 3350 [Miralax] 17 gram powder in packet 17 g PO DAILY PRN (Reason: constipation) albuterol sulfate 90 mcg/actuation HFA aerosol inhaler 1 puff INHALATION PRN PRN (Reason: ALLERGIES) Patient Comments: INHALE 2 PUFFS BY MOUTH EVERY 4 HOURS NEEDED for wheezing/ SHORTNESS OF BREATH DIRECTED ibuprofen 600 mg tablet 600 mg PO Q6H PRN (Reason: pain) Qty: 14 0RF ciprofloxacin HCl [Cipro] 500 mg tablet 500 mg PO BID Discontinued finasteride [Proscar] 5 mg tablet 5 mg PO QDAY tamsulosin 0.4 mg capsule 0.8 mg PO QHS Other Ambulatory Orders: 12 Lead EKG (Routine) Timeframe: [id number] Location: None Selected Ordered By: Dr. Ángel Be Referrals / Follow Up: Teo Bee MD [Med Staff - Active Staff] - Aisha Ramos MD [Primary Care Provider] - Disposition Disposition (needs filled in before D/C Order can be placed): Home, Self Care
--- NOTE | 2023-04-18 15:44 | PCM.OPRPT ---
Report of Operation Date of Procedure: 04/18/23 Pre-Operative Diagnosis: BPH with obstruction Post-Operative Diagnosis: The same Surgery/Procedure Performed:: Transurethral resection of prostate Description of Surgical Findings:: In the preoperative setting I discussed with the patient how the surgery would be done with expect afterwards. We discussed how a prostate resection is done and we discussed the risk of the surgery including, bleeding, infection, retrograde ejaculation, changes with ejaculation or intercourse,. We discussed the possibility that the resection of the prostate may not alleviate his urinary symptoms. We discussed the small risk of developing scar tissue along the urethral channel and strictures. We also discussed the chance of the prostate could grow back and he may need further surgery or treatment in the future for prostate problems. Patient was taken back to the operating room, timeout procedure was performed, he was identified and marked and placed on the operating room table. He underwent general anesthesia. He was placed in dorsolithotomy position. Penis and testicles were prepped and draped in usual sterile fashion. Went into the bladder using the visual obturator with a resectoscope. Once inside the bladder identified the right and left ureteral orifice. I then identified the prostate and the anatomy of the prostate. I marked out the area of the sphincter and the verumontanum was identified. I then proceeded with the prostate resection first resected the median lobe. And then resected the right lobe of the prostate. Then to resect the left lobe of the prostate. I then resected the apical tissue of the prostate. This was a complete resection of all obstructive tissue to improve voiding and relieve obstruction. I then made sure that there was no injury to the sphincter or the verumontanum was still intact. At the end of the resection all the chips were Ellik out of the bladder. I then identified the left and right ureteral orifice and these were confirmed to be in good position and effluxing and not injured. The resectoscope was removed, a 22 Vincentian catheter was placed into the bladder on continuous irrigation. And the urine was fairly light pink color and draining normally. He was taken back to the PACU in good condition. Surgeon: Teo Bee Type of Anesthesia: General Estimated Blood Loss (mL): 10 Admit VTE Documentation VTE Present on Admission: No VTE Mechan Device Prophylaxis: SCD's VTE Pharm Prophylaxis ordered?: No
[2023-04-18 16:16] LABS: Bedside Glucose 114 mg/dL (74-106)
[2023-04-18] MEDS: Lactated Ringers 1,000 ML 125 ML IV (19:20)
[2023-04-18] MEDS: Docusate Sodium 100 MG Capsule 200 MG PO (21:36)
[2023-04-18] MEDS: Ciprofloxacin 500 MG Tablet PO (21:36)
[2023-04-18] MEDS: Sertraline 50 MG Tablet PO (21:37)
[2023-04-18] MEDS: Atorvastatin Calcium 40 MG Tablet PO (21:37)
[2023-04-19] MEDS: Lactated Ringers 1,000 ML 125 ML IV (01:14)
[2023-04-19 01:35] VITALS: BP 95/57; PULSE 62; RESP 16; TEMP 36.4; O2SAT 95
[2023-04-19] MEDS: Levothyroxine 125 MCG Tablet PO (05:24)
[2023-04-19 05:25] VITALS: BP 97/59; PULSE 70; RESP 18; TEMP 36.1; O2SAT 94
--- NOTE | 2023-04-19 05:41 | NURSING ---
Pt. stood at bedside- tolerated well. No dizziness.
--- NOTE | 2023-04-19 07:00 | PCM.PN.GU ---
Subjective Subjective Status post transurethral resection of the prostate, urine is fairly clear, we can remove the catheter this morning and patient can go home after he is able to urinate. Spoke to the family and the patient regarding postop care I will see him in 2 weeks for checkup Objective Data Objective Data Vital Signs: Vital Signs Temp Pulse Resp BP Pulse Ox O2 Del Method 96.9 F L 70 18 97/59 L 94 Room Air 04/19/23 05:25 04/19/23 05:25 04/19/23 05:25 04/19/23 05:25 04/19/23 05:25 04/19/23 05:25 Oxygen Delivery Method Room Air Weight: 87.54 kg Body Mass Index (BMI) 27.6 Intake & Output: Intake and Output for Last 24 Hours 04/17/23 04/18/23 04/19/23 23:59 23:59 23:59 Intake Total 1810 / 1910 1515.0 / 1515.0 Output Total 2600 / 2600 500 / 500 Balance -790 / -690 1015.0 / 1015.0 Lab / Micro Data Labs: Laboratory Results - last 24 hr 04/18/23 12:23: POC Glucose 107 H 04/18/23 15:59: POC Glucose 114 H
[2023-04-19] MEDS: 0.9% Saline Lock 10 ML Syringe IV (07:27)
--- NOTE | 2023-04-19 09:15 | CASEMGMT ---
PRERNA TANG NOTE: Pt being discharged. PRERNA TANG to room. Pt standing in room in front of window, dressed, and states is ready for discharge. Pt is scheduled to go to OP infusion suite for IV hydration once he leaves from the hospital. in room w/pt and states she has already picked up new Rx. They deny having any discharge planning needs/concerns. Margareth PARRAN PRERNA TANG
[2023-04-19 09:52] VITALS: BP 111/75; PULSE 64; RESP 18; TEMP 36.2; O2SAT 100
[2023-04-19] MEDS: Ciprofloxacin 500 MG Tablet PO (10:02)
[2023-04-19] MEDS: Docusate Sodium 100 MG Capsule PO (10:02)
== END 2023-04-19 10:25 | disposition home or self-care (01) ==
LOC: SDC 16:02 → MS3 16:02
PROVIDERS: Admitting Provider Urology; PCP Internal Medicine; Referring Provider Urology; Visit Provider Urology
PROC: (CPT 52601; principal; 2023-04-18 14:25)
DX: N40.1 Benign prostatic hyperplasia with lower urinary tract symptoms (principal); C77.4 Secondary and unspecified malignant neoplasm of inguinal and lower limb lymph nodes; C67.9 Malignant neoplasm of bladder, unspecified; D69.6 Thrombocytopenia, unspecified; E11.9 Type 2 diabetes mellitus without complications; Z79.84 Long term (current) use of oral hypoglycemic drugs; R33.8 Other retention of urine; Z87.891 Personal history of nicotine dependence; E78.00 Pure hypercholesterolemia, unspecified; N13.8 Other obstructive and reflux uropathy; Z79.899 Other long term (current) drug therapy; J45.909 Unspecified asthma, uncomplicated; M19.90 Unspecified osteoarthritis, unspecified site; E07.9 Disorder of thyroid, unspecified; Z79.890 Hormone replacement therapy; Z45.2 Encounter for adjustment and management of vascular access device
CPT/HCPCS: 52601; 00914; 82962; 88305; 93005; 96365; 96366; 96523; 99221; J7120; A4216; G0378; J2405

== ENCOUNTER → 2023-06-29 | Outpatient (CLI) | payer MEDICARE, OTHER, SELFPAY ==
--- NOTE | 2023-06-29 07:05 | CT_ITS ---
EXAM: CT ABDOMEN AND PELVIS WITH INTRAVENOUS CONTRAST CLINICAL INDICATION: ABNORMAL UPTAKE MESENTERY ON PET -- ORAL AND IV CONTRAST TECHNIQUE: Helically acquired images were obtained of the abdomen and pelvis with intravenous contrast. This CT exam was performed using one or more of the following dose reduction techniques: automated exposure control, adjustment of the mA and/or kV according to patient size, and/or use of iterative reconstruction technique. CONTRAST: IV 100mL Isovue-300 COMPARISON: PET CT scan 06/26/2023, CT Abdomen Pelvis dated 11/29/2022 FINDINGS: LOWER THORAX: Normal. Lung bases are clear. No cardiomegaly. No pericardial effusion. ABDOMEN: LIVER: Stable small liver cysts. PANCREAS: Normal. No focal cystic or solid mass. SPLEEN: Normal. Normal size without focal cystic or solid mass. ADRENALS: Normal. No nodules. KIDNEYS AND URETERS: Normal. Normal renal size and position. No hydronephrosis. STOMACH AND BOWEL: Normal. No bowel distention. No focal inflammatory change. PELVIS: APPENDIX: Appendix is visualized and normal in appearance. BLADDER: Asymmetric wall thickening of the urinary bladder. Neoplasm to BE differentiated from chronic cystitis. Defect along the base of the bladder suggestive of a TURP. REPRODUCTIVE: Unremarkable as visualized. No mass. ABDOMEN and PELVIS: INTRAPERITONEAL SPACE: Mild changes of mesenteric panniculitis, improved from prior study. No ascites or other fluid collection. No free air. BONES/JOINTS: No suspicious lytic or blastic abnormality. SOFT TISSUES: Small fat-containing bilateral inguinal hernias. VASCULATURE: Normal. Abdominal aorta is non-dilated. LYMPH NODES: Normal. No enlarged lymph nodes. CT/Abdomen/Pelvis WITH Contrast IMPRESSION: 1. Asymmetric wall thickening of the urinary bladder which will need further follow-up to differentiate cystitis from neoplasm. 2. Improving changes of mesenteric panniculitis. Electronically Signed: Aniket Hood MD at 9:52 EDT ,
== END | disposition home or self-care (01) ==
PROVIDERS: PCP Internal Medicine; Referring Provider Internal Medicine Hematology & Oncology; Visit Provider Internal Medicine Hematology & Oncology
DX: C67.9 Malignant neoplasm of bladder, unspecified (principal)
CPT/HCPCS: 74177; Q9967

== ENCOUNTER → 2024-02-20 | Outpatient (CLI) | payer MEDICARE, OTHER, SELFPAY ==
--- NOTE | 2024-02-20 08:19 | CT_ITS ---
STUDY: CT ABDOMEN AND PELVIS WITH CONTRAST REASON FOR EXAM: Male, 78 years old. F/U MESENTERIC LESION ON PET RADIATION DOSAGE (If Supplied By Facility): CTDIvol = ( 15.11 ) mGy, DLP = ( 1254.67 ) mGycm TECHNIQUE: Transaxial images were obtained from the dome of the diaphragm to the symphysis pubis with oral contrast. Oral and amp; IV Gastrografin and amp; 100mL Isovue-370 was administered. Sagittal and coronal images were reconstructed. 3-D images were reconstructed. Individualized dose optimization techniques were used for this CT. COMPARISON: Comparison is made with prior study dated June 29, 2023. FINDINGS: The visualized lung bases are unremarkable. The visualized portions of the heart are within normal limits. There is decreased attenuation of the liver consistent with steatosis. Stable 1.6 cm cyst in the anterior midportion of the right lobe of the liver. Normal gallbladder and extrahepatic biliary system. Normal spleen. Normal pancreas. Normal bilateral adrenal glands. Normal right kidney. Normal left kidney. Normal visualized stomach. Normal small intestine. Normal colon. The appendix is visualized and appears normal. Normal abdominal aorta. Normal inferior vena cava. Small lymph nodes are seen in the root of the mesentery. The previously seen increased density in the root of the mesentery has improved. Minimal residual changes persist. No definite mass lesion is seen. Normal retroperitoneum. Diffuse bladder wall thickening. There is enlargement of the prostate gland. The prostate measures 4.1 cm x 4.2 cm. This causes indentation of the bladder base. Prostatic calcifications are seen. Normal abdominal wall. There are degenerative changes of the visualized lumbar spine. There is straightening of the normal lumbar lordosis. CT/Abdomen/Pelvis WITH Contrast IMPRESSION: Small lymph nodes are seen in the root of the mesentery. No masses seen. The previously seen area of increased markings has improved. The remainder of examination is unchanged. Electronically Signed: Yovani Mcwilliams MD at 9:10 EDT ,
[2024-02-20 08:44] LABS: CREATININE FINGERSTICK 1.1 mg/dL (0.70-1.30); EGFR FINGERSTICK > 60.0000 mL/min (>60)
== END | disposition home or self-care (01) ==
PROVIDERS: PCP Internal Medicine; Referring Provider Internal Medicine Hematology & Oncology; Visit Provider Internal Medicine Hematology & Oncology
DX: C67.9 Malignant neoplasm of bladder, unspecified (principal); C77.4 Secondary and unspecified malignant neoplasm of inguinal and lower limb lymph nodes
CPT/HCPCS: 74177; Q9967; A4216

== ENCOUNTER 2024-06-04 14:11 | Inpatient (IN) | payer MEDICARE, OTHER, SELFPAY ==
[2024-06-04] VITALS (7 sets, daily range): BP systolic 84–106; BP diastolic 52–71; PULSE 68–105; RESP 12–19; TEMP 36.1–37; O2SAT 97–100; BMI 29.3; BMI 28.8
--- NOTE | 2024-06-04 14:14 | EKG12_ITS ---
Test Reason : CP Blood Pressure : / mmHG Vent. Rate : 099 BPM Atrial Rate : 099 BPM P-R Int : 162 ms QRS Dur : 084 ms QT Int : 350 ms P-R-T Axes : 041 -24 000 degrees QTc Int : 449 ms Normal sinus rhythm Nonspecific ST abnormality Abnormal ECG Confirmed by See Erickson ([id number]), film editor KVNG GARCÍA ([id number]) on 06/06/2024 9:32:45 AM Referred By: Confirmed By:See Erickson
--- NOTE | 2024-06-04 14:25 | RAD_ITS ---
STUDY: X-RAY CHEST REASON FOR EXAM: Male, 79 years old. Chest pain TECHNIQUE: Single AP portable view of the chest. COMPARISON: Comparison is made with prior study dated February 13, 2023. FINDINGS: A right-sided barrera catheter seen with the tip in the midportion of the superior vena cava. Elevation of the right hemidiaphragm. The lungs are clear. There is no demonstrated pleural abnormality. Normal size heart. Normal mediastinum and xiomara. Normal visualized pulmonary arteries. There is atherosclerotic calcification of the aortic arch with tortuosity. Normal visualized thoracic spine. Normal visualized ribs, clavicles, and shoulders. There is no demonstrated abnormality of the visualized soft tissue structures of the upper abdomen. RAD/Chest 1 View (Portable) IMPRESSION: No acute abnormality is seen. Electronically Signed: Yovani Mcwilliams MD at 14:42 EDT ,
--- NOTE | 2024-06-04 14:44 | ED.VIS.CHEST ---
HPI History of Present Illness Chief Complaint: Chest Pain Informant: patient Onset/Context/Timing Onset: Today Activity at onset: sudden Timing: Intermittent Quality: Positive for Aching Location: Right Parasternal and Left Parasternal Worsened By: Nothing Relieved By: Nothing Associated Symptoms: Positive for Nausea, Diaphoresis, Dyspnea and Lightheadedness; Negative for Vomiting, Cough, Fever, Acid Reflux or Palpitations Narrative Narrative: Patient presents with chest pain that began today while golfing. Patient states that he felt like he was lightheaded while he was golfing. Patient states he felt like he was going to pass out. Patient states he was able to hold onto the side of the golf cart to avoid falling and passing out. Patient states he had pain along the right and left parasternal area. Patient describes it as aching. Patient states it resolved after 1 hour. Patient states he felt lightheaded and had some diaphoresis with it. Patient also admits to some shortness of breath and nausea with the pain. Patient states his vision did get blurry. Patient states that he is diabetic and felt like his sugar might be getting low. Patient states he ate something with sugar and drank some soda. Patient states he thinks it might of helped a little bit. Patient states he was unable to finish the last hole of golf due to his symptoms. However, patient states he was able to drive himself home from the golf [place] which was a 30-[address] drive. 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 cancer Wears glasses Diabetes Arthritis Former smoker Asthma History of echocardiogram History of stress test Skin lesion Thyroid disease High blood cholesterol Home Medications ?Medication ?Instructions ?Recorded ?Last Taken ?Type sertraline 50 mg tablet 50 mg PO QDAY 09/07/17 06/03/24 History atorvastatin 20 mg tablet (Lipitor) 20 mg PO QHS cholesterol 08/08/23 06/03/24 History bupropion HCl 150 mg 24 hr tablet, 150 mg PO QAM 02/27/24 06/04/24 07:00 History extended release (Wellbutrin XL) albuterol sulfate 90 mcg/actuation 2 puff inhalation Q8H PRN wheezing 06/04/24 Unknown History aerosol inhaler levothyroxine 112 mcg tablet 112 mcg PO .qam thyroid 06/04/24 06/04/24 07:00 History Allergy/AdvReac Type Severity Reaction Status Date / Time ipratropium (From Atrovent) Allergy Severe Other Verified 06/04/24 14:11 Family History Mother Colon cancer Grandmother Colon cancer Grandfather CVA (cerebral vascular accident) Grandmother CVA (cerebral vascular accident) Surgical History S/P TURP (status post transurethral resection of prostate) History of transurethral resection of bladder tumor (TURBT) History of cystoscopy Hx of transurethral destruction of bladder lesion Hx of colonoscopy History of thyroidectomy Social History Smoking Status: Former smoker alcohol intake: never ROS ROS ED Constitutional Constitutional ED: Denies chills or fever(s) Eyes Eyes: Reports blurry vision; Denies change in vision ENT ENT ED: Denies rhinorrhea or sore throat Cardiovascular Cardiovascular: Reports chest pain; Denies palpitations Respiratory/Chest Respiratory/Chest: Reports dyspnea; Denies cough Gastrointestinal Gastrointestinal: Reports nausea; Denies abdominal pain or vomiting Genitourinary Genitourinary ED: Denies dysuria or hematuria Musculoskeletal Musculoskeletal: Denies back pain or neck pain Integumentary Denies abscess or rash Neurologic Neurologic: Reports weakness; Denies headache(s) Allergic/Immunologic Allergic/Immunologic ED: Denies mouth swelling or urticaria EXAM Physical Exam Const Vital Signs: 06/04/24 14:11 06/04/24 14:47 06/04/24 14:49 Temperature 97.1 F L Temperature Source Temporal Pulse Rate 105 H Respiratory Rate 18 Respiratory Effort Normal Non-Labored Blood Pressure 90/54 L Blood Pressure Mean 66 Pulse Ox 97 Oxygen Delivery Method Room Air Room Air 06/04/24 15:00 06/04/24 16:00 06/04/24 17:00 Temperature Temperature Source Pulse Rate 82 74 70 Respiratory Rate 17 19 H 16 Respiratory Effort Blood Pressure 93/52 L 97/71 84/67 L Blood Pressure Mean 66 80 74 Pulse Ox 97 98 Oxygen Delivery Method 06/04/24 18:00 Temperature 98.6 F Temperature Source Pulse Rate 68 Respiratory Rate 12 Respiratory Effort Blood Pressure 100/64 Blood Pressure Mean 76 Pulse Ox 99 Oxygen Delivery Method Positive well nourished and well developed General Appearance ED: well developed and NAD HEENT Reports moist mucous membranes normocephalic and atraumatic Neck supple and no JVD Chest Wall palpation of chest normal Resp normal respiratory effort and clear to auscultation bilaterally Cardio regular rate and regular rhythm GI soft to palpation, non-tender and non-distended Extremity normal to inspection Neuro oriented x3, CN's II-XII intact bilaterally and no sensory deficits noted Sensorium / Orientation: awake and alert Motor Exam: strength 5/5 throughout Psych mental status grossly normal Heart Score History: Moderately Suspicious ECG: Nonspecific Repolarization Age: >/= 65 years Risk Factors: 1 or 2 Risk Factors Troponin: </= Normal Limit Score: 5 MDM MDM MDM Narrative Medical decision making narrative: Differential diagnosis includes cardiac dysrhythmia, cardiac ischemia, electrolyte abnormality, pulmonary embolism, pneumonia, musculoskeletal pain, and anxiety. EKG will be obtained to assess for cardiac dysrhythmia and cardiac ischemia. Chest x-ray will be obtained to assess for pneumonia and pneumothorax. CBC will be obtained to assess for leukocytosis and anemia. Basic metabolic profile will be obtained to assess for electrolyte abnormality and renal function. High-sensitivity troponin will be obtained to assess for cardiac ischemia. 2-hour repeat high-sensitivity troponin will be obtained to assess for ongoing cardiac ischemia. PT with INR will be obtained to assess for coagulopathy. D-dimer will be obtained to assess for pulmonary embolism. Lab Data Attestation: I reviewed the patient's lab results. Lab results narrative: CBC was reviewed. There is a mild anemia with a hemoglobin of 12.3 and hematocrit of 37.7. Platelets were slightly low at 103. Basic metabolic profile was reviewed. Potassium was slightly low at 3.0. CO2 was slightly low at 18. Glucose was mildly elevated at 186. The remainder is within normal limits. PT with INR and PTT were reviewed and were within normal limits. D-dimer was reviewed and was normal at 0.31. Serum magnesium was reviewed and was slightly low at 1.3. High-sensitivity troponin was reviewed and was normal at 28. TSH was reviewed and was normal at 1.37. 2-hour repeat high-sensitivity troponin was reviewed and was elevated at 667. Labs: Laboratory Results - last 24 hr 06/04/24 06/04/24 13:28 17:07 WBC 5.6 RBC 3.88 L Hgb 12.3 L Hct 37.7 L MCV 97.2 H MCH 31.7 MCHC 32.6 RDW Std Deviation 48.9 H RDW Coeff of Ryan 13.8 Plt Count 103 L MPV 11.4 Immature Gran % (Auto) 0.400 Neut % (Auto) 75.3 H Lymph % (Auto) 12.7 L [place] % (Auto) 8.4 Eos % (Auto) 2.7 Baso % (Auto) 0.5 Absolute Neuts (auto) 4.2 Absolute Lymphs (auto) 0.71 L Nucleated RBC % 0 PT 14.9 INR 1.2 APTT 27.8 D-Dimer Quant (PE/DVT) 0.31 Sodium 141 Potassium 3.0 L Chloride 117 H Carbon Dioxide 18.0 L Anion Gap 6 BUN 16 Creatinine 1.29 Est GFR (MDRD) Af Amer 69 Est GFR (MDRD) Non-Af 57 L BUN/Creatinine Ratio 12.4 Glucose 186 H Calcium 6.6 L Magnesium 1.3 L Troponin I High Sens 28 667 H* TSH 1.370 Radiography Chest X-Ray - ED: 1 View, Read by ED Physician, Read by Radiologist and No Acute Disease Diagnostic Testing: Clinical Impression(s) from Imaging Studies Chest X-Ray 06/04/24 14:25 IMPRESSION: No acute abnormality is seen. Electronically Signed: Yovani Mcwilliams MD at 14:42 EDT , Portable 1 view chest x-ray was obtained. On my independent interpretation, lung tolentino are clear. There is normal cardiac silhouette. Bony thorax is normal. There is no acute process noted. Radiologist also interpreted the x-ray and agrees. EKG Initial EKG: Attestation: I personally reviewed and interpreted this EKG as follows: Interpretation: Sinus Rhythm (99) and Non-Specific ST Changes Comments: EKG was obtained. On my independent interpretation, it showed a normal sinus rhythm with a rate of 99. [place] interval, QRS interval, and QTc intervals were all normal. There is left axis deviation at -24. There are nonspecific ST-T wave changes. Prior EKG tracings: available for review Prior: Unchanged (04/16/2023) Management Discussion w/another healthcare provider: Hospitalist Treatment and Re-Evaluation :: Patient was given aspirin. Patient was advised of his findings. Patient has a HEART score of 5. Patient states it has been several years since he has had a stress test. Patient was given IV fluids. Because of this, I recommended admission to the hospital. Case was discussed with the hospitalist prior to the results of the repeat troponin. She will admit the patient to PCU for observation. I did discuss the results of the repeat troponin with the hospitalist. She will contact cardiology. Patient understood and was agreeable with the plan. All questions were answered. Discharge Plan Dx/Rx/DC Orders Clinical Impression: Chest pain, Diabetes, Near syncope, Elevated troponin Disposition Disposition: Acute Care Hospital [facility] Discharge Date/Time: 06/04/24 19:34
[2024-06-04 14:53] LABS: International Normalized Ratio 1.2; Prothrombin Time (Protime)PT. 14.9 SECONDS (11.7-14.9)
[2024-06-04 14:54] LABS: Absolute Lymphocyte Count 0.71 X10^3/uL (0.83-4.51); Absolute Neutrophil Count 4.2 X10^3/uL (2.0-7.7); Basophil# 0.03 X10^3/uL; Basophil% 0.5 % (0-1); Eosinophil# 0.15 X10^3/uL; Eosinophils% 2.7 % (0-5); Hematocrit 37.7 % (40-54); Hemoglobin 12.3 g/dL (13.0-16.5); Lymphocyte # 0.71 X10^3/ul (0.83-4.51); Lymphocyte % 12.7 % (19-41); Mean Corp Hgb Conc 32.6 g/dL (32-36); Mean Corpuscular Hgb 31.7 pg (27.0-32.0); Mean Corpuscular Volume 97.2 fL (80-94); Mean Platelet Vol. 11.4 fl (6.2-12.0); Monocyte# 0.47 X10^3/uL; Monocyte% 8.4 % (0-10); NRBC Flagged by Analyzer 0 % (0-5); Neutrophil # 4.22 X10^3/uL (2.7-7.7); Neutrophil % 75.3 % (47-70); Platelet Count 103 K/mm3 (150-450); RBC Distribution Width CV 13.8 % (11.6-14.6); RBC Distribution Width SD 48.9 fl (35.1-43.9); Red Blood Count 3.88 M/mm3 (4.6-6.2); White Blood Count 5.6 K/mm3 (4.4-11.0)
[2024-06-04 15:13] LABS: Anion Gap 6 (5-15); BUN 16 mg/dL (7-18); BUN/Creat Ratio 12.4 RATIO (10-20); Calcium,Total 6.6 mg/dL (8.5-10.1); Chloride 117 mmol/L (98-107); Creatinine, Serum 1.29 mg/dL (0.70-1.30); EST Glomerular Filtration Rate 57 mL/min (>60); Est Glom Filt Rate - Afr Amer 69 mL/min (>60); Glucose 186 mg/dL (74-106); Sodium Level 141 mmol/L (136-145); Troponin-I HS (w/2H Reflex) 28 pg/mL (3.0-78.0)
[2024-06-04] MEDS: Potassium Chloride Oral Tablet 20 MEQ 40 MEQ PO (15:25)
[2024-06-04 16:02] LABS: D-Dimer Quantitative (DVT/PE) 0.31 FEU/ug/m (0.27-0.49)
[2024-06-04 16:08] LABS: Magnesium 1.3 mg/dL (1.6-2.6)
[2024-06-04 16:15] LABS: Partial Thromboplast Time 27.8 Seconds (24.1-36.2)
[2024-06-04 16:41] LABS: Reflex Troponin-HS? (from REC) Y
[2024-06-04 17:38] LABS: Troponin-I HS 667 pg/mL (3.0-78.0)
[2024-06-04] MEDS: 0.9% Normal Saline (1000mL) 1,000 ML 1000 ML IV (17:55)
--- NOTE | 2024-06-04 17:57 | PCM.HP.STD ---
HPI - General General Date of Admission: 06/04/24 Date of Service: 06/04/24 Chief Complaint: Chest pain HPI Narrative DEBO HULL, is a 79 M with a history of bladder cancer in remission, diet-controlled diabetes, hypothyroidism, depression presented [facility] ED 06/04/2024 with an hour of dull aching chest pain with lightheadedness and blurry vision. He was playing golf and at the time and was on the 12 hole when he suddenly had a dull ache on either side of his sternum was feeling lightheaded, this persisted so patient went home and did not finish his last round of golf, on his way home he also had some blurry vision, the symptoms all persisted until patient was in the ED. Had not eaten or drank very well today and was sweating and blood pressure 80s to 90s systolic upon arrival. Otherwise lab workup initially not overtly remarkable and initial troponin within normal limits and patient symptoms resolved so hospitalist contacted for admission for chest pain rule out. Discussed with patient and currently pain-free and not feeling lightheaded anymore, notes that this has not happened to him before, no medication changes in the past few days. Did have COVID at the beginning of this month and has had some lingering cough and congestion but denies any new symptoms and has not had any fevers or chills. No swelling in lower extremities. 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 cancer Wears glasses Diabetes Arthritis Former smoker Asthma History of echocardiogram History of stress test Skin lesion Thyroid disease High blood cholesterol Home Medications ?Medication ?Instructions ?Recorded ?Last Taken ?Type sertraline 50 mg tablet 50 mg PO QDAY 09/07/17 06/03/24 History atorvastatin 20 mg tablet (Lipitor) 20 mg PO QDAY 08/08/23 06/03/24 History bupropion HCl 150 mg 24 hr tablet, 150 mg PO QAM 02/27/24 06/04/24 07:00 History extended release (Wellbutrin XL) albuterol sulfate 90 mcg/actuation 2 puff inhalation Q8H PRN wheezing 06/04/24 Unknown History aerosol inhaler levothyroxine 112 mcg tablet 112 mcg PO DAILY 06/04/24 06/04/24 07:00 History Allergy/AdvReac Type Severity Reaction Status Date / Time ipratropium (From Atrovent) Allergy Severe Other Verified 06/04/24 14:11 Family History Mother Colon cancer Grandmother Colon cancer Grandfather CVA (cerebral vascular accident) Grandmother CVA (cerebral vascular accident) Surgical History S/P TURP (status post transurethral resection of prostate) History of transurethral resection of bladder tumor (TURBT) History of cystoscopy Hx of transurethral destruction of bladder lesion Hx of colonoscopy History of thyroidectomy Social History Smoking Status: Former smoker alcohol intake: never ROS ROS Narrative General: Denies fever/chills HENT: Denies headache, denies stuffy nose, denies sore throat EYES: Had some blurry vision earlier when symptoms were present Resp: Has had a little bit of cough and congestion post-COVID Cardiac: Had dull substernal chest discomfort that lasted for over an hour GI: Denies abdominal pain, denies changes in bowel, denies nausea/vomiting : Denies changes in urination Extremity: Denies swelling MSK: Denies weakness Neuro: Denies any numbness/tingling Heme: Denies any bleeding or bruising Skin: Denies rashes Psychiatric: No complaints voiced Vital Signs Vital Signs Vital Signs: 06/04/24 14:11 06/04/24 14:47 06/04/24 14:49 Temperature 97.1 F L Temperature Source Temporal Pulse Rate 105 H Respiratory Rate 18 Respiratory Effort Normal Non-Labored Blood Pressure 90/54 L Blood Pressure Mean 66 Pulse Ox 97 Oxygen Delivery Method Room Air Room Air 06/04/24 15:00 06/04/24 16:00 06/04/24 17:00 Temperature Temperature Source Pulse Rate 82 74 70 Respiratory Rate 17 19 H 16 Respiratory Effort Blood Pressure 93/52 L 97/71 84/67 L Blood Pressure Mean 66 80 74 Pulse Ox 97 98 Oxygen Delivery Method Weight Weight: 92.8 kg Body Mass Index (BMI) 29.3 Physical Exam Narrative General: Alert, oriented, no apparent distress HEENT: Atraumatic, normocephalic Eyes: Anicteric, normal conjunctiva, extraocular movements grossly intact Neck: Supple Respiratory: Clear to auscultation bilaterally, normal respiratory effort Cardiovascular: Regular rate and rhythm GI: Soft, nontender, nondistended Extremities: No edema Musculoskeletal: Moving all extremities Neuro: No overt focal neurological deficits Skin: No rashes appreciated Psych: Cooperative Results Lab / Micro Data 06/04/24 13:28 06/04/24 13:28 Labs: Laboratory Results - last 24 hr 06/04/24 13:28: WBC 5.6, RBC 3.88 L, Hgb 12.3 L, Hct 37.7 L, MCV 97.2 H, MCH 31.7, MCHC 32.6, RDW Std Deviation 48.9 H, RDW Coeff of Ryan 13.8, Plt Count 103 L, MPV 11.4, Immature Gran % (Auto) 0.400, Neut % (Auto) 75.3 H, Lymph % (Auto) 12.7 L, [place] % (Auto) 8.4, Eos % (Auto) 2.7, Baso % (Auto) 0.5, Absolute Neuts (auto) 4.2, Absolute Lymphs (auto) 0.71 L, Nucleated RBC % 0, PT 14.9, INR 1.2, APTT 27.8, D-Dimer Quant (PE/DVT) 0.31, Sodium 141, Potassium 3.0 L, Chloride 117 H, Carbon Dioxide 18.0 L, Anion Gap 6, BUN 16, Creatinine 1.29, Est GFR (MDRD) Af Amer 69, Est GFR (MDRD) Non-Af 57 L, BUN/Creatinine Ratio 12.4, Glucose 186 H, Calcium 6.6 L, Magnesium 1.3 L, Troponin I High Sens 28, TSH 1.370 06/04/24 17:07: Troponin I High Sens 667 H* Imaging Radiology Impression Chest X-Ray 06/04/24 14:25 IMPRESSION: No acute abnormality is seen. Electronically Signed: Yovani Mcwilliams MD at 14:42 EDT , Assessment & Plan Assessment/Plan (1) Elevated troponin: PLAN: Plan # NSTEMI -Type I versus type II -Had chest discomfort, initial troponin 28 and up trended to 667 -Discussed with cardiology, patient currently chest pain-free and EKG with no apparent acute ischemic changes so was advised to give 1 full-time dose of Lovenox and consult cardiology with n.p.o. at midnight, possible cath tomorrow -Admit to telemetry -Echocardiogram -Continue aspirin and statin -Unable to start beta-shilo due to low blood pressure # Low blood pressure -Systolic 80s to 90s on arrival -Do suspect there is component of dehydration given patient had not eaten or drank very well and had lot of sweating -Received IV fluids, cardiology recommended trying to limit this to 1 L in the event that this is cardiac in nature -Echocardiogram -Is improving -Avoiding antihypertensives #Hypothyroidism -Continue Synthroid -TSH 1.37 #Hx bladder cancer in remission -Continues to follow with hematology and radiation oncology and presently in remission #Hx depression -Continue Wellbutrin and sertraline # Hypomagnesemia/hypokalemia -Replace, recheck in the a.m. #DVT ppx: Received full dose Lovenox x 1 Kanwal Turner MD Time spent in the patient's overall evaluation,decision-making process, review of diagnostic data, adjustment of management, discussion with other providers, nursing nursing and ancillary staff involved in patient's care documentation, 56 Minutes Charges/Coding Visit Charges Inpatient E&M: 47270 Init Hosp L2
--- NOTE | 2024-06-04 19:52 | ECHOCS_ITS ---
Reason For Study: CHEST PAIN Procedure This was a 2D Doppler, Color Flow transthoracic echocardiogram. The study was technically difficult. Contrast injection was performed. Exam performed portable in patient room. Left Ventricle Normal LV size. The estimated ejection fraction is 60 %. No evidence for diastolic dysfunction. No regional wall motion abnormalities noted. Right Ventricle Normal RV size. Normal systolic function. Atria The left and right atria are normal. No doppler evidence for ASD. Mitral Valve There is no mitral valve stenosis. No mitral valve insufficiency. Tricuspid Valve There is no tricuspid stenosis. Trivial tricuspid valve insufficiency. Unable to estimate RV systolic pressure due to insufficient tricuspid regurgitant envelope. Aortic Valve Trisinus/trileaflet aortic valve. There is no aortic stenosis. Trivial aortic valve insufficiency. Pulmonic Valve There is no pulmonic valvular stenosis. No pulmonic valve insufficiency. Great Vessels Mildly dilated aortic root. Pericardium/Pleural No pericardial effusion. Medication Diluted definity 1ml given slow IV push to enhance endocardial definition. MMode/2D Measurements & Calculations LVIDd: 4.5 cm IVSd: 1.1 cm LVOT diam: 2.1 cm LVIDs: 2.5 cm LVPWd: 1.2 cm RVDd: 3.4 cm FS: 43.7 % LVOT area: 3.5 cm2 Ao root diam: 3.9 cm asc Aorta Diam: 4.1 cm LAV(MOD-bp): 54.8 ml LAV(MOD-bp) Indexed: 26.2 ml/m2 LAV(MOD-sp2): 55.8 ml LAV(MOD-sp4): 54.3 ml SV(MOD-sp4): 62.2 ml SV(sp4-el): 60.8 ml LVAd ap4: 36.6 cm2 LVLd ap4: 9.1 cm EDV(MOD-sp4): 125.1 ml EDV(sp4-el): 125.4 ml LVAs ap4: 24.4 cm2 LVLs ap4: 7.8 cm ESV(MOD-sp4): 63.0 ml ESV(sp4-el): 64.7 ml EF(MOD-sp4): 49.7 % EF(sp4-el): 48.5 % LA A4 area: 19.8 cm2 LA dimension(2D): 3.8 cm RA A4 area: 9.3 cm2 Time Measurements MV dec time: 0.28 sec Doppler Measurements & Calculations MV E max sb: 55.2 cm/sec Lat Peak E' Sb: 10.5 cm/sec Med Peak E' Sb: 7.4 cm/sec MV A max sb: 51.5 cm/sec E/E' lat: 5.3 E/E' med: 7.5 MV E/A: 1.1 MV V2 max: 64.9 cm/sec MV dec slope: 200.0 cm/sec2 Ao V2 max: 88.8 cm/sec MV max P.7 mmHg Ao max P.2 mmHg MV V2 mean: 39.9 cm/sec Ao V2 mean: 63.0 cm/sec MV mean P.72 mmHg Ao mean P.8 mmHg MV V2 VTI: 23.1 cm Ao V2 VTI: 23.8 cm MVA(VTI): 3.6 cm2 AV (velocity ratio): 1.00 DOMINICK(I,D): 3.5 cm2 DOMINICK(V,D): 3.6 cm2 LV V1 max: 89.7 cm/sec SV(LVOT): 84.2 ml PA V2 max: 58.8 cm/sec LV V1 max P.2 mmHg PA V2 mean: 46.4 cm/sec LV V1 mean P.8 mmHg LV V1 mean: 63.4 cm/sec LV V1 VTI: 23.7 cm PI end-d sb: 70.5 cm/sec ECHO/Echo Complete W/ Contrast Interpretation Summary The estimated ejection fraction is 60 %. No evidence for diastolic dysfunction. Trivial aortic valve insufficiency. Mildly dilated aortic root. Ordering Physician: Kanwal Turner Referring Physician: MATTEO REBOLLAR Performed By: Chela Suarez and Student
--- NOTE | 2024-06-04 19:52 | EKG12_ITS ---
Test Reason : NSTEMI ADMIT Blood Pressure : / mmHG Vent. Rate : 074 BPM Atrial Rate : 074 BPM P-R Int : 172 ms QRS Dur : 080 ms QT Int : 418 ms P-R-T Axes : 045 -13 -49 degrees QTc Int : 463 ms Normal sinus rhythm Nonspecific ST and T wave abnormality Abnormal ECG When compared with ECG of 04-JUN-2024 14:20, MANUAL COMPARISON REQUIRED, DATA IS UNCONFIRMED Confirmed by See Erickson ([id number]), advertising editor NEVILLE ANGLIN ([id number]) on 06/05/2024 7:54:12 AM Referred By: Confirmed By:See Erickson
[2024-06-04 20:52] LABS: Troponin-I HS 981 pg/mL (3.0-78.0)
[2024-06-04] MEDS: 0.9% Saline Lock 10 ML Syringe IV ×2 (21:04→23:23)
[2024-06-04] MEDS: Calcium Gluconate IV 2 GM in 0.9% Normal Saline (100mL Bag) 100 ML IV (21:08)
[2024-06-04] MEDS: Enoxaparin 100 MG/ML Syringe 90 MG SC (21:09)
[2024-06-04] MEDS: Sertraline 50 MG Tablet PO (21:12)
[2024-06-04] MEDS: Atorvastatin Calcium 40 MG Tablet PO (21:12)
[2024-06-04] MEDS: Magnesium Sulfate 4gm/100mL 4 GM/100 ML IV.SOLN. IV (23:22)
[2024-06-05] VITALS (11 sets, daily range): BP systolic 95–119; BP diastolic 46–76; PULSE 57–71; RESP 14–18; TEMP 36.4–36.6; O2SAT 97–99; BMI 28.8
--- NOTE | 2024-06-05 05:55 | EKG12_ITS ---
Test Reason : PRE-OP Blood Pressure : / mmHG Vent. Rate : 058 BPM Atrial Rate : 058 BPM P-R Int : 188 ms QRS Dur : 084 ms QT Int : 458 ms P-R-T Axes : 000 -02 -44 degrees QTc Int : 449 ms Sinus bradycardia Nonspecific ST and T wave abnormality Abnormal ECG When compared with ECG of 04-JUN-2024 20:27, MANUAL COMPARISON REQUIRED, DATA IS UNCONFIRMED Confirmed by LOVE EID, SHAHNAZ ([id number]), editorial clerk NEVILLE ANGLIN ([id number]) on 07/03/2024 2:13:56 PM Referred By: Confirmed By:SHAHNAZ ALEMAN MD
[2024-06-05 06:21] LABS: Absolute Lymphocyte Count 1.13 X10^3/uL (0.83-4.51); Absolute Neutrophil Count 2.2 X10^3/uL (2.0-7.7); Basophil# 0.03 X10^3/uL; Basophil% 0.7 % (0-1); Eosinophil# 0.27 X10^3/uL; Eosinophils% 6.5 % (0-5); Hematocrit 35.9 % (40-54); Hemoglobin 11.8 g/dL (13.0-16.5); Lymphocyte # 1.13 X10^3/ul (0.83-4.51); Mean Corp Hgb Conc 32.9 g/dL (32-36); Mean Corpuscular Hgb 32.1 pg (27.0-32.0); Mean Corpuscular Volume 97.6 fL (80-94); Mean Platelet Vol. 11.2 fl (6.2-12.0); NRBC Flagged by Analyzer 0 % (0-5); Neutrophil # 2.24 X10^3/uL (2.7-7.7); Neutrophil % 53.6 % (47-70); POSITIVE COUNT YES; Platelet Count 95 K/mm3 (150-450); RBC Distribution Width CV 13.9 % (11.6-14.6); RBC Distribution Width SD 50.3 fl (35.1-43.9); Red Blood Count 3.68 M/mm3 (4.6-6.2); White Blood Count 4.2 K/mm3 (4.4-11.0)
[2024-06-05 06:30] LABS: International Normalized Ratio 1.2; Prothrombin Time (Protime)PT. 14.7 SECONDS (11.7-14.9)
[2024-06-05] MEDS: Levothyroxine 112 MCG Tablet PO (06:30)
[2024-06-05] MEDS: Aspirin E.C. 81 MG Tablet PO (06:31)
[2024-06-05 06:50] LABS: Troponin-I HS 704 pg/mL (3.0-78.0)
[2024-06-05 06:56] LABS: Anion Gap 1 (5-15); BUN 19 mg/dL (7-18); BUN/Creat Ratio 13.9 RATIO (10-20); Chloride 112 mmol/L (98-107); Creatinine, Serum 1.37 mg/dL (0.70-1.30); EST Glomerular Filtration Rate 53 mL/min (>60); Est Glom Filt Rate - Afr Amer 64 mL/min (>60); Estimated Creatinine Clearance 48.81 ml/min; Glucose 135 mg/dL (74-106); Magnesium 2.9 mg/dL (1.6-2.6); Potassium 4.3 mmol/L (3.5-5.1); Sodium Level 138 mmol/L (136-145)
--- NOTE | 2024-06-05 08:25 | CON.PCM.CA_ITS ---
Assessment & Plan Assessment/Plan (1) NSTEMI (non-ST elevated myocardial infarction): PLAN: Patient's symptoms, elevated troponins, and evolution of his EKG are suggestive of a non-ST segment elevation myocardial infarction type I. The patient has remained pain-free since admission. He is not on beta-shilo due to heart rate in the 55 to 65 bpm range with a blood pressure in the 85-90 systolic range. This is partially related to dehydration which is being gingerly replaced. The patient received a single dose of full weighted Lovenox last evening. He has been n.p.o. after midnight. He is not allergic to contrast. The patient is recommended to have invasive cardiac evaluation with left heart catheterization and possible stenting as indicated. The cath and stenting procedures risk/benefit and alternatives were explained to the patient and his in detail they voiced understanding and agreed to proceed as outlined. (2) Dehydration: PLAN: Patient's lab work and hypotensive presentation in the face of playing golf without eating or drinking yesterday is consistent with his being dehydrated. He has been gently rehydrated overnight. His creatinine is up slightly to 1.37. 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 He has not been on medical therapy he has not required it has been diet and exercise controlled. The patient is not obese. (4) High blood cholesterol: PLAN: Patient's lipids in February 2024 total cholesterol was 118 triglycerides 126 LDL 57 and HDL 26 with normal liver function test on his current atorvastatin dose. This represents excellent control and no further manipulation is indicated at this time. The patient is also hypothyroid on replacement his TSH was normal at 1.37 June 04, 2024. PLAN: Plan 1. Will rehydrate with normal saline at 100 cc an hour prior to the catheterization. 2. Reevaluate basic metabolic panel in 24 hours. 3. Proceed with left heart catheterization to define his coronary anatomy. 4. Further recommendations following the outcome of the catheterization. HPI Consult Data Date of Consult: 06/05/24 HPI Narrative Reason for Consultation: Chest pain with positive cardiac enzymes HPI Narrative: DEBO HULL, is a 79 M who presents with a history of bilateral stomach discomfort while playing golf yesterday. This occurred at approximate 1130 hrs. The patient continued to finish his round of golf he was on the 12th hole when it started. He also had some lightheadedness and some visual changes. The patient went home he actually stumbled into the house according to his and she called EMS. By the time he got to the emergency department all of his symptoms had resolved. His initial set enzymes troponin was 28-second set came back 600/3 at 904 set was back down to 700. Patient's initial EKG showed normal sinus rhythm and was completely normal. Subsequent EKG showed flattening of the T waves and minor nonspecific ST-T changes. The patient carries a history of bladder cancer status post indwelling therapy as well as systemic chemotherapy with cisplatin him and another drug. This is caused some transient renal insufficiency per the patient and his . The patient has had subsequent CT scans without any contrast-induced nephropathy or allergic reactions. The patient is very active in his home environment he does admit to at least 1 other episode similar to this where the symptoms lasted a shorter period of time about 10 minutes when he was active. There is a family history of late in life coronary artery disease his father had bypass graft surgery. The patient is not hypertensive in fact his blood pressure runs low in the 90-100 systolic range. He does have a history of hyperlipidemia on atorvastatin which is well-controlled he has a history of hypothyroidism. The patient smoked but he quit 45 years ago. He is diet controlled diabetic. The patient's had no recurrence of his symptoms since hospitalization. His creatinine has increased slightly and it was felt that he was dehydrated upon presentation with a low blood pressure in the 80-90 systolic range. 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 cancer Wears glasses Diabetes Arthritis Former smoker Asthma History of echocardiogram History of stress test Skin lesion Thyroid disease High blood cholesterol Home Medications ?Medication ?Instructions ?Recorded ?Last Taken ?Type sertraline 50 mg tablet 50 mg PO QDAY 09/07/17 06/03/24 History atorvastatin 20 mg tablet (Lipitor) 20 mg PO QHS cholesterol 08/08/23 06/03/24 History bupropion HCl 150 mg 24 hr tablet, 150 mg PO QAM 02/27/24 06/04/24 07:00 History extended release (Wellbutrin XL) albuterol sulfate 90 mcg/actuation 2 puff inhalation Q8H PRN wheezing 06/04/24 Unknown History aerosol inhaler levothyroxine 112 mcg tablet 112 mcg PO .qam thyroid 06/04/24 06/04/24 07:00 History Allergy/AdvReac Type Severity Reaction Status Date / Time ipratropium (From Atrovent) Allergy Severe Other Verified 06/04/24 14:11 Family History Mother Colon cancer Grandmother Colon cancer Grandfather CVA (cerebral vascular accident) Grandmother CVA (cerebral vascular accident) Surgical History S/P TURP (status post transurethral resection of prostate) History of transurethral resection of bladder tumor (TURBT) History of cystoscopy Hx of transurethral destruction of bladder lesion Hx of colonoscopy History of thyroidectomy Social History Smoking Status: Former smoker alcohol intake: never ROS Constitutional Constitutional: Reports as per HPI Eyes Eyes: Reports systems reviewed and no addt'l complaints, except as documented ENT HEENT: Reports systems reviewed and no addt'l complaints, except as documented Cardiovascular Cardiovascular: Reports as per HPI Respiratory/Chest Respiratory/Chest: Reports as per HPI Gastrointestinal Gastrointestinal: Reports systems reviewed and no addt'l complaints, except as documented Genitourinary Genitourinary: Reports as per HPI Musculoskeletal Musculoskeletal: Reports systems reviewed and no addt'l complaints, except as documented Integumentary Integumentary: Reports systems reviewed and no addt'l complaints, except as documented Neurologic Neurologic: Reports as per HPI Psychiatric Psychiatric: Reports systems reviewed and no addt'l complaints, except as documented Endocrine Endocrinology: Reports as per HPI Hematologic/Lymphatic Hematologic/Lymphatic: Reports as per HPI Allergic/Immunologic Allergic/Immunologic: Reports systems reviewed and no addt'l complaints, except as documented Physical Exam Const alert and oriented x3 HEENT normocephalic Eyes PERRL Neck no JVD and no carotid bruits Chest inspection of chest normal Resp normal respiratory effort Cardio Rate: regular rate Rhythm: regular rhythm Heart Sounds: S1 normal and S2 normal; Negative for click, gallop or murmur Peripheral Pulses: pulses 2+ throughout GI normal to inspection, nondistended, normoactive bowel sounds, soft to palpation and no bruits Extremity no pedal edema Skin no rashes or lesions noted Neuro Neuro Narrative: Alert and oriented x 3 Psych mental status grossly normal Risk Stratification Risk Stratification Applicable: Yes Age >/= 65: Yes >/= 3 CAD Risk Factors (HTN, HLD, DM, family hx of CAD, or current smoker): Yes Aspirin Use in the Past 7 Days: No Severe Angina (>/= episodes in 24 hours): Yes EKG ST Changes >/= 0.5mm: No Positive Cardiac Marker: Yes MORENA Risk Stratification Score: 4 MORENA % Risk: 20% Risk Charges/Coding Visit Charges Inpatient E&M: 19329 Init Hosp L3 Objective Data Vital Signs: Vital Signs Temp Pulse Resp BP Pulse Ox O2 Del Method 97.6 F L 57 L 18 116/61 98 Room Air 06/05/24 06:29 06/05/24 06:29 06/05/24 06:29 06/05/24 06:29 06/05/24 06:29 06/05/24 08:17 Oxygen Delivery Method Room Air Weight: 200 lb 13.458 oz Body Mass Index (BMI) 28.8 Intake & Output: Intake and Output for Last 24 Hours 06/03/24 06/04/24 06/05/24 23:59 23:59 23:59 Intake Total 1520 / 1520 100 / 100 Balance 1520 / 1520 100 / 100 Lab / Micro Data Attestation: I reviewed the patient's lab results. 06/05/24 05:15 06/05/24 05:15 Labs: Laboratory Results - last 24 hr 06/04/24 13:28: WBC 5.6, RBC 3.88 L, Hgb 12.3 L, Hct 37.7 L, MCV 97.2 H, MCH 31.7, MCHC 32.6, RDW Std Deviation 48.9 H, RDW Coeff of Ryan 13.8, Plt Count 103 L, MPV 11.4, Immature Gran % (Auto) 0.400, Neut % (Auto) 75.3 H, Lymph % (Auto) 12.7 L, Allen % (Auto) 8.4, Eos % (Auto) 2.7, Baso % (Auto) 0.5, Absolute Neuts (auto) 4.2, Absolute Lymphs (auto) 0.71 L, Nucleated RBC % 0, PT 14.9, INR 1.2, APTT 27.8, D-Dimer Quant (PE/DVT) 0.31, Sodium 141, Potassium 3.0 L, Chloride 117 H, Carbon Dioxide 18.0 L, Anion Gap 6, BUN 16, Creatinine 1.29, Est GFR (MDRD) Af Amer 69, Est GFR (MDRD) Non-Af 57 L, BUN/Creatinine Ratio 12.4, G lucose 186 H, Calcium 6.6 L, Magnesium 1.3 L, Troponin I High Sens 28, TSH 1.370 06/04/24 17:07: Troponin I High Sens 667 H* 06/04/24 20:12: Troponin I High Sens 981 H* 06/05/24 05:15: WBC 4.2 L, RBC 3.68 L, Hgb 11.8 L, Hct 35.9 L, MCV 97.6 H, MCH 32.1 H, MCHC 32.9, RDW Std Deviation 50.3 H, RDW Coeff of Ryan 13.9, Plt Count 95 L, MPV 11.2, Immature Gran % (Auto) 0.200, Neut % (Auto) 53.6, Lymph % (Auto) 27.0, Allen % (Auto) 12.0 H, Eos % (Auto) 6.5 H, Baso % (Auto) 0.7, Absolute Neuts (auto) 2.2, Absolute Lymphs (auto) 1.13, Nucleated RBC % 0, PT 14.7, INR 1.2, Sodium 138, Potassium 4.3, Chloride 112 H, Carbon Dioxide 25.0, Anion Gap 1 L, BUN 19 H, Creatinine 1.37 H, Estim Creat Clear Calc 48.81, Est GFR (MDRD) Af Amer 64, Est GFR (MDRD) Non-Af 53 L, BUN/Creatinine Ratio 13.9, Glucose 135 H, Calcium 9.0, Magnesium 2.9 H, Troponin I High Sens 704 H* Rhythm Strip Rhythm Strip: Sinus Rhythm Rate: 65 Cardiology Labs/Tests 06/04/24 13:28: WBC 5.6, RBC 3.88 L, Hgb 12.3 L, Hct 37.7 L, MCV 97.2 H, MCH 31.7, MCHC 32.6, Plt Count 103 L, MPV 11.4, Immature Gran % (Auto) 0.400, Neut % (Auto) 75.3 H, Lymph % (Auto) 12.7 L, Allen % (Auto) 8.4, Eos % (Auto) 2.7, Baso % (Auto) 0.5, Absolute Neuts (auto) 4.2, Nucleated RBC % 0, PT 14.9, INR 1.2, APTT 27.8, D-Dimer Quant (PE/DVT) 0.31, Sodium 141, Potassium 3.0 L, Chloride 117 H, Carbon Dioxide 18.0 L, Anion Gap 6, BUN 16, Creatinine 1.29, Est GFR (MDRD) Af Amer 69, Est GFR (MDRD) Non-Af 57 L, BUN/Creatinine Ratio 12.4, G lucose 186 H, Calcium 6.6 L, Magnesium 1.3 L 06/05/24 05:15: WBC 4.2 L, RBC 3.68 L, Hgb 11.8 L, Hct 35.9 L, MCV 97.6 H, MCH 32.1 H, MCHC 32.9, Plt Count 95 L, MPV 11.2, Immature Gran % (Auto) 0.200, Neut % (Auto) 53.6, Lymph % (Auto) 27.0, Allen % (Auto) 12.0 H, Eos % (Auto) 6.5 H, Baso % (Auto) 0.7, Absolute Neuts (auto) 2.2, Nucleated RBC % 0, PT 14.7, INR 1.2, Sodium 138, Potassium 4.3, Chloride 112 H, Carbon Dioxide 25.0, Anion Gap 1 L, BUN 19 H, Creatinine 1.37 H, Est GFR (MDRD) Af Amer 64, Est GFR (MDRD) Non-Af 53 L, BUN/Creatinine Ratio 13.9, Glucose 135 H, Calcium 9.0, Magnesium 2.9 H Rhythm: EKG: ECHO: Stress Test: Cardiac Cath: PCI: CT Surgery: Holter monitor: EPS: PPM: CXR: Chest CT Scan: Radiography Diagnostic Testing: Radiology Impression Chest X-Ray 06/04/24 14:25 IMPRESSION: No acute abnormality is seen. Electronically Signed: Yovani Mcwilliams MD at 14:42 EDT , EKG Follow-up EKG: Attestation: I personally reviewed and interpreted this EKG as follows: (Sinus bradycardia at [address]-T wave changes)
[2024-06-05] MEDS: 0.9% Normal Saline (1000mL) 1,000 ML 100 ML IV (08:50)
--- NOTE | 2024-06-05 09:02 | PN.HOSP_ITS ---
Reason for Visit Reason for Visit: Diagnoses Type 2 diabetes mellitus without complications (06/04/24) Pure hypercholesterolemia, unspecified (06/04/24) Dehydration (06/04/24) Non-ST elevation (NSTEMI) myocardial infarction (06/04/24) Other specified abnormal findings of blood chemistry (06/04/24) Subjective Subjective chest pain resolved. Objective Data Objective Data Vital Signs: Vital Signs Temp Pulse Resp BP Pulse Ox O2 Del Method 36.4 C L 57 L 18 116/61 98 Room Air 06/05/24 06:29 06/05/24 06:29 06/05/24 06:29 06/05/24 06:29 06/05/24 06:29 06/05/24 08:17 Oxygen Delivery Method Room Air Weight: 91.1 kg Body Mass Index (BMI) 28.8 Intake & Output: Intake and Output for Last 24 Hours 06/03/24 06/04/24 06/05/24 23:59 23:59 23:59 Intake Total 1520 / 1520 100 / 100 Balance 1520 / 1520 100 / 100 Lab / Micro Data 06/05/24 05:15 06/05/24 05:15 Labs: Laboratory Results - last 24 hr 06/04/24 13:28: WBC 5.6, RBC 3.88 L, Hgb 12.3 L, Hct 37.7 L, MCV 97.2 H, MCH 31.7, MCHC 32.6, RDW Std Deviation 48.9 H, RDW Coeff of Ryan 13.8, Plt Count 103 L, MPV 11.4, Immature Gran % (Auto) 0.400, Neut % (Auto) 75.3 H, Lymph % (Auto) 12.7 L, [place] % (Auto) 8.4, Eos % (Auto) 2.7, Baso % (Auto) 0.5, Absolute Neuts (auto) 4.2, Absolute Lymphs (auto) 0.71 L, Nucleated RBC % 0, PT 14.9, INR 1.2, APTT 27.8, D-Dimer Quant (PE/DVT) 0.31, Sodium 141, Potassium 3.0 L, Chloride 117 H, Carbon Dioxide 18.0 L, Anion Gap 6, BUN 16, Creatinine 1.29, Est GFR (MDRD) Af Amer 69, Est GFR (MDRD) Non-Af 57 L, BUN/Creatinine Ratio 12.4, G lucose 186 H, Calcium 6.6 L, Magnesium 1.3 L, Troponin I High Sens 28, TSH 1.370 06/04/24 17:07: Troponin I High Sens 667 H* 06/04/24 20:12: Troponin I High Sens 981 H* 06/05/24 05:15: WBC 4.2 L, RBC 3.68 L, Hgb 11.8 L, Hct 35.9 L, MCV 97.6 H, MCH 32.1 H, MCHC 32.9, RDW Std Deviation 50.3 H, RDW Coeff of Ryan 13.9, Plt Count 95 L, MPV 11.2, Immature Gran % (Auto) 0.200, Neut % (Auto) 53.6, Lymph % (Auto) 27.0, [place] % (Auto) 12.0 H, Eos % (Auto) 6.5 H, Baso % (Auto) 0.7, Absolute Neuts (auto) 2.2, Absolute Lymphs (auto) 1.13, Nucleated RBC % 0, PT 14.7, INR 1.2, Sodium 138, Potassium 4.3, Chloride 112 H, Carbon Dioxide 25.0, Anion Gap 1 L, BUN 19 H, Creatinine 1.37 H, Estim Creat Clear Calc 48.81, Est GFR (MDRD) Af Amer 64, Est GFR (MDRD) Non-Af 53 L, BUN/Creatinine Ratio 13.9, Glucose 135 H, Calcium 9.0, Magnesium 2.9 H, Troponin I High Sens 704 H* Radiography Diagnostic Testing: Radiology Impression Chest X-Ray 06/04/24 14:25 IMPRESSION: No acute abnormality is seen. Electronically Signed: Yovani Mcwilliams MD at 14:42 EDT , Rhythm Strip Rhythm Strip: Sinus Rhythm Rate: 65 Physical Exam Const alert and no apparent distress HEENT head/scalp atraumatic and moist oral mucous membranes Resp normal respiratory effort, no retractions, no use of accessory muscles and clear to auscultation bilaterally Cardio regular rate, regular rhythm, S1 normal heart sound and S2 normal heart sound GI normal to inspection, nondistended, normoactive bowel sounds, soft to palpation, non-tender and non-distended Assessment & Plan Assessment/Plan (1) Elevated troponin: PLAN: Plan NSTEMI * Seen by cardiology. Plan for cardiac catheterization. * Check echo * On aspirin, atorvastatin * Holding off on beta-blockers given bradycardia and ADRIEL inhibitor/angiotensin receptor blockers given low blood pressure. * LHC showed mild distal RCA disease. * Monitor overnight and if stable, discharge 06/06 Chronic conditions * Hypothyroidism-Continue Synthroid-TSH 1.37 * Hx bladder cancer in remission-Continues to follow with hematology and radiation oncology and presently in remission * Hx depression-Continue Wellbutrin and sertraline * Hypomagnesemia/hypokalemia-Replace, recheck in the a.m. VTE prophylaxis with SCDs. Charges/Coding Visit Charges Inpatient E&M: 92541 Subs Hosp L2
--- NOTE | 2024-06-05 11:49 | NURSING ---
Gave report to Lew GRAFF in [employer]
--- NOTE | 2024-06-05 12:57 | CHAPLAIN ---
Type of Pastoral Visit ___ Initial Visit ___ Follow-up Visit ___ On-call Visit ___ General Patient Visit ___ Spiritual Assessment ___ Family Conference ___ Bereavement ___ Rapid Response ___ Code Blue ___ Other (describe below) Pastoral Care Referral From ___ Patient ___ Family ___ Nurse ___ Physician ___ Spray Unit Feeder ___ Medical Researcher ___ Other (describe below) Sacrament/Intervention ___ Active listening ___ Anointing ___ Jewish ___ Bereavement ___ Communion ___ Christal exploration ___ ___ Life review ___ Prayer ___ Reconciliation ___ Sacrament of Sick ___ Supportive presence ___ Wedding ___ Other (describe below) Pastoral Comments patient and bed are not in the room; left a calling card
--- NOTE | 2024-06-05 13:00 | CL.D_ITS ---
Patient Name: DEBO HULL Study Date: 06/05/2024 Performing: Mohsen Singletary MD Ht: 70 inches 177.8 cm : 1945 Wt: 200.84 lbs 91.1 kg Age: 79 Gender: male BSA: 2.09 PROCEDURE(S) PERFORMED DC01-([id number])LHC/COR/LV CLINICAL PROFILE AND INDICATIONS Indications: Suspected CAD, ACS <= 24 hrs Heart Failure: None Stress/Imaging Stress/Image Study Performed: No CAD Presentations: Non-STEMI. Symptom onset Date/Time: 06/04/24 Time Not Available CONCLUSIONS Mild disease noted in the mid right coronary artery and mild ostial OM and ostial diagonal vessel. RECOMMENDATIONS Medical therapy DESCRIPTION OF PROCEDURE The patient arrived to the procedure lab. The risks and benefits of the procedure as well as a full description of our services here and current unavailability of surgical backup were fully explained to the patient and/or their significant other prior to the catheterization. The Timeout was completed, verifying the correct patient and procedure. The patient's procedural site was prepped and draped in the usual fashion. Local anesthetic was given subcutaneously to right radial region with Lidocaine 2%. Using a modified Seldinger technique, arterial access was obtained via the right radial artery, a 6Fr sheath was inserted. Right Coronary Artery selective angiography was then performed in multiple views using a 5 Fr. 4.0 [place] catheter. Left Coronary Artery selective angiography was performed in multiple views using a 5 Fr. 4.0 [place] catheter. Left Ventriculography was performed in ARCINIEGA projection using a 5 Fr. Pigtail catheter. LV to AO pullback pressures were then recorded.The arterial sheath was pulled and a TR Band was applied for hemostasis-14 cc air CORONARY ANGIOGRAPHY DOMINANCE: Right Dominant LEFT HEART ASSESSMENT Left Ventricular Ejection Fraction: by LV Gram 60 % Normal LV wall motion Normal Left Ventricular systolic function LEFT MAIN: Angiographically normal LEFT ANTERIOR DESCENDING ARTERY: This vessel has mild disease in the first diagonal branch with an ostial 50% stenotic lesion. No high-grade stenosis is noted. RIGHT CORONARY ARTERY: Dominant large right coronary artery with mid segment with 50% smooth stenosis and mild distal disease only COMPLICATIONS No Complications PROCEDURE MEDICATIONS Fentanyl 50 mcg IV Versed 1 mg IV Oxygen: 2 L/min via nasal cannula Heparin given IA 06/05/2024 12:34:49 Verapamil 2.5mg, Ntg 100mcgs, 3000 units of Heparin given IA 06/05/2024 12:34:49 SUMMARY OF HEMODYNAMIC DATA Time AIR REST ECG 12:07:04 Art 113/53 (77) 12:31:58 AO 102/59 (81) SA 12:36:42 LV 108/5, 12 12:42:24 LV 107/0, 13 12:42:35 LV 99/4, 14 12:43:11 LVp 101/4, 13 12:43:16 AOp 106/52 (77) 12:43:23 12:57:57 Signed By Mohsen Singletary MD On 06/05/2024 12:59:50 Mohsen Singletary MD
[2024-06-05] MEDS: buPROPion (XL) 150 MG TABLET.XL PO (13:37)
[2024-06-05] MEDS: Clopidogrel Bisulfate 75 MG Tablet PO (13:37)
--- NOTE | 2024-06-05 14:09 | CASEMGMT ---
PRERNA TANG Assessment Face to Face with patient for initial transition planning/care coordination assessment. RN CM introduced self and role at [facility], pt voices understanding. Pt is A&Ox4 and is resting comfortably in bed and is calm. Pt at bedside. Care providers, pharmacy, and demographics verified. Admitting dx: NSTEMI LACE Strata: 2 PCP: Aisha Ramos Specialists: TIFF, Eli (Onc), Ed (Onc) Preferred Pharmacy: [facility] [place] Insurance: [facility] A/B, [facility] Prescription Benefit: Yes LNOK: Dipika Willard (W) Living Arrangements: Pt lives with his in a 3 story home with one step to enter ADLs/IADLs: Ind Transportation: Self, DME: Glucometer and sufficient supplies. BP Monitor. Denies further needs HHC/SNF: Denies history or needs Pt?s goal: Home Plan: Home no needs. 6-Click is 24. Pt denies further homegoing needs and states that he feels safe returning home with his once medically ready. CM to follow for any expensive anticoagulant medications. Kelsea Locke RN, CM
[2024-06-05] MEDS: Atorvastatin Calcium 40 MG Tablet PO (20:59)
[2024-06-05] MEDS: Sertraline 50 MG Tablet PO (20:59)
[2024-06-06 02:54] VITALS: BMI 28.9
[2024-06-06 03:03] VITALS: BP 106/69; PULSE 62; RESP 14; TEMP 36.3; O2SAT 97
[2024-06-06] MEDS: Levothyroxine 112 MCG Tablet PO (06:05)
--- NOTE | 2024-06-06 07:42 | PCM.PN.CARD ---
Subjective Subjective The patient is up ambulating in the garcia with his this morning. He has had no recurrence of any anginal type symptoms denies any neurologic or visual changes. The patient is tolerating the Plavix and aspirin. His creatinine was slightly elevated he was rehydrated pre and post procedure. We will check renal function in 7 to 10 days as well as a CBC to check his platelet count when he is seen in the office. Objective Data Vital Signs: Vital Signs Temp Pulse Resp BP Pulse Ox O2 Del Method 97.4 F L 62 14 106/69 97 Room Air 06/06/24 03:03 06/06/24 03:03 06/06/24 03:03 06/06/24 03:03 06/06/24 03:03 06/06/24 03:48 Oxygen Delivery Method Room Air Weight: 201 lb 8.04 oz Body Mass Index (BMI) 28.9 Intake & Output: Intake and Output for Last 24 Hours 06/04/24 06/05/24 06/06/24 23:59 23:59 23:59 Intake Total 1520 / 1520 1100 / 1100 Balance 1520 / 1520 1100 / 1100 Lab / Micro Data Attestation: I reviewed the patient's lab results. 06/05/24 05:15 06/05/24 05:15 Rhythm Strip Rhythm Strip: Sinus Rhythm Rate: 65 Cardiology Labs/Tests Rhythm: EKG: ECHO: Stress Test: Cardiac Cath: PCI: CT Surgery: Holter monitor: EPS: PPM: CXR: Chest CT Scan: Radiography Diagnostic Testing: Radiology Impression Echocardiogram 06/04/24 19:52 Interpretation Summary The estimated ejection fraction is 60 %. No evidence for diastolic dysfunction. Trivial aortic valve insufficiency. Mildly dilated aortic root. Ordering Physician: Kanwal Turner Referring Physician: MATTEO REBOLLAR Performed By: Chela Suarez and Student Physical Exam Const alert and oriented x3 HEENT normocephalic Eyes EOMs intact bilaterally Neck no JVD Chest inspection of chest normal Chest Narrative: Subcutaneous port noted in the right infraclavicular area. Resp normal respiratory effort Cardio Cardio Narrative: Right wrist is well-healed with no evidence of hematoma. Extremity no pedal edema Psych mental status grossly normal Assessment & Plan Assessment/Plan (1) NSTEMI (non-ST elevated myocardial infarction): PLAN: There is a question whether this was a true type I non-STEMI. The patient has some mild to moderate coronary disease but no significant hazy plaques are occluded branch vessels. His LV function is normal and his troponin peaked at 900. Given the fact the patient has relative thrombocytopenia with a 95,000 platelet count I would recommend that we treat him with 6 weeks of dual antiplatelet therapy and then long-term baby aspirin. (2) Thrombocytopenia: PLAN: The patient has been relatively thrombocytopenic since completion of his chemotherapy for his bladder cancer. PLAN: Plan 1. Plavix 75 mg daily and aspirin 81 mg daily x 6 weeks then aspirin 81 mg daily long-term. 2. Repeat CBC and basic metabolic panel in 7 to 10 days when he is evaluated in the [facility] office. 3. Please have the patient call the office for an appointment to see me or one of the RADHA's in 7 to 10 days. 4. Provide the patient remains asymptomatic we would follow him up on an every 6-month basis and as needed after his initial 7 to 10-day visit. 5. From a cardiovascular standpoint the patient can be discharged to home. Charges/Coding Visit Charges Inpatient E&M: 28530 Subs Hosp L2
[2024-06-06 09:00] VITALS: BP 126/75; PULSE 76; RESP 18; TEMP 36.3; O2SAT 99
[2024-06-06] MEDS: Clopidogrel Bisulfate 75 MG Tablet PO (09:10)
[2024-06-06] MEDS: buPROPion (XL) 150 MG TABLET.XL PO (09:10)
[2024-06-06] MEDS: Aspirin E.C. 81 MG Tablet PO (09:10)
--- NOTE | 2024-06-06 09:22 | DS.PCM_ITS ---
Providers Date of Admission: 06/04/24 Primary Care Physician: Dr. Aisha Rebollar MD Consultations 06/04/24 19:52 Consult: Cardiology Routine Consulting Provider: See Erickson Reason for Consult: Chest Pain EMERGENT Consult: No MD Notified: Yes Date Notified: 06/04/24 Time Notified: 18:04 Method of Notification: Verbal Reason For Visit: NSTEMI Diagnosis Discharge Diagnosis (1) NSTEMI (non-ST elevated myocardial infarction): Status: Acute Code(s): I21.4 - Non-ST elevation (NSTEMI) myocardial infarction (2) Thrombocytopenia: Status: Acute Code(s): D69.6 - Thrombocytopenia, unspecified Plan NSTEMI * Cardiac catheterization showed mild disease in the first diagonal branch of the LAD, ostial 50% stenotic lesion. No high-grade lesions noted. Right coronary artery showed dominant large right coronary artery with mild segmental 50% smooth Woelfel stenosis and mild distal disease only. * EF 60%. * On aspirin, atorvastatin. Started on clopidogrel. * Holding off on beta-blockers given bradycardia and MOY inhibitor/angiotensin receptor blockers given low blood pressure. * LHC showed mild distal RCA disease. * Monitor overnight and if stable, discharge 06/06 Chronic conditions * Hypothyroidism-Continue Synthroid-TSH 1.37 * Hx bladder cancer in remission-Continues to follow with hematology and radiation oncology and presently in remission * Hx depression-Continue Wellbutrin and sertraline * Hypomagnesemia/hypokalemia-Replace, recheck in the a.m. Will discharge home. Discussed with the patient's . Medications at Discharge Home Medications sertraline 50 mg tablet 50 mg PO QDAY 09/07/17 bupropion HCl 150 mg 24 hr tablet, extended release (Wellbutrin XL) 150 mg PO QAM 02/27/24 albuterol sulfate 90 mcg/actuation aerosol inhaler 2 puff inhalation Q8H PRN wheezing 06/04/24 levothyroxine 112 mcg tablet 112 mcg PO .qam thyroid 06/04/24 aspirin 81 mg tablet,delayed release 81 mg PO BREAKFAST #0 tabs 06/06/24 atorvastatin 40 mg tablet 40 mg PO QHS #30 tabs 06/06/24 clopidogrel 75 mg tablet 75 mg PO DAILY #42 tabs 06/06/24 Hospital Course Operations None Procedures 2-D Echocardiogram and Cardiac catheterization Summary of Care Provided Minutes Spent on Discharge: 32 Hospital Course: Patient presents with chest pain as well as a non-ST ovation myocardial infarction. Troponins went up to 90-1. Patient had heart heart catheterization that showed distal right coronary artery disease. That was unamenable to PCI. Patient will continue with medical management with aspirin, atorvastatin as well as clopidogrel. Cardiology recommending 6 weeks of aspirin and clopidogrel then aspirin 81 daily thereafter. Patient to follow-up CBC and BMP in about 7 to 10 days when he evaluates at the [facility]. Weight / BMI Weight Weight: 91.4 kg Body Mass Index (BMI) 28.9 ABG / Lab / Microbiology Data 06/05/24 05:15 06/05/24 05:15 Radiography Diagnostic Testing: Radiology Impression Echocardiogram 06/04/24 19:52 Interpretation Summary The estimated ejection fraction is 60 %. No evidence for diastolic dysfunction. Trivial aortic valve insufficiency. Mildly dilated aortic root. Ordering Physician: Kanwal Turner Referring Physician: AISHA REBOLLAR Performed By: Chela Suarez and Student D/C Instructions Discharge Diet: No restrictions Meaningful Use Info Meaningful Use Meaningful Use Diagnoses (Choose all that apply): AMI AMI/Post PCI/Angioplasty Aspirin given w/in 24hrs of arrival?: Yes ASA at discharge?: Yes Antiplatelet Therapy at Discharge:: Yes Statins at discharge?: Yes Moy/ARB at discharge?: No Reason Moy/ARB not ordered:: Worsening renal dysfunctn Beta Emily at discharge?: No Reason Beta Emily not ordered:: Hypotension Done w/ Acute [place] measure.: Yes Documented LVEF (%): 60 Ischemic Stroke Statin Dosing Therapy Reference: STATIN DOSE THERAPY REFERENCE: * Patients > 75 years receive moderate or high dose statin therapy. * Patients 75 years or YOUNGER should receive HIGH intensity statin dose unless contraindicated. You will be required to document reason for non-treatment if statin daily dose does not meet guidelines. HIGH DOSE STATIN THERAPY DAILY Atorvastatin > than or = to 40 mg Rosuvastatin > than or = to 20 mg Amlodipine + Atorvastatin > than or = to 2.5/40 mg Ezetimibe + Simvastatin 10/80 mg Simvastatin 80mg Discharge Plan Admission Admit Date/Time: 06/04/24 18:02 Primary Reason for Your Visit: Myocardial infarction Attending Provider: Marino Minaya Primary Care Provider: Aisha Rebollar Consulting Providers: See Erickson; Kanwal Turner Instructions Additional Instructions / Restrictions: You had a myocardial infarction (a heart attack). You will be on aspirin and Plavix for 6 weeks and then aspirin thereafter. Please follow-up with cardiology in the office in the next 1 to 2 weeks. Discharge Orders/Prescriptions Prescriptions: New atorvastatin 40 mg Tablet 40 mg PO QHS Qty: 30 0RF clopidogrel 75 mg Tablet 75 mg PO DAILY Qty: 42 0RF Rx Instructions: For 6 weeks then stop aspirin 81 mg Tablet,Delayed Release (Dr/Ec) 81 mg PO BREAKFAST Qty: 0 0RF Continued sertraline 50 mg tablet 50 mg PO QDAY bupropion HCl [Wellbutrin XL] 150 mg tablet extended release 24 hr 150 mg PO QAM levothyroxine 112 mcg tablet 112 mcg PO .qam albuterol sulfate 90 mcg/actuation HFA aerosol inhaler 2 puff INHALATION Q8H PRN (Reason: wheezing) Discontinued atorvastatin [Lipitor] 20 mg tablet 20 mg PO QHS Referrals / Follow Up: [facility] [Provider Group] - Within 2 Weeks Aisha Rebollar MD [Primary Care Provider] - Within 2 Weeks Disposition Disposition (needs filled in before D/C Order can be placed): Home, Self Care Charges/Coding Visit Charges Inpatient E&M: 46860 Disch Hosp >30min
--- NOTE | 2024-06-06 10:57 | CASEMGMT ---
Patient has order for discharge. RN CM in to discuss needs at discharge, at bedside. Patient denies needs or help at discharge. Patient had no further questions or concerns.
== END 2024-06-06 11:11 | disposition home or self-care (01) | DRG 282 ==
LOC: ED 17:39 → PCU 18:46
PROVIDERS: Internal Medicine; Admitting Provider Internal Medicine; Emergency Provider Emergency Medicine; PCP Internal Medicine
DX: I21.4 Non-ST elevation (NSTEMI) myocardial infarction (principal); E03.9 Hypothyroidism, unspecified; E11.9 Type 2 diabetes mellitus without complications; J45.909 Unspecified asthma, uncomplicated; E87.6 Hypokalemia; Z87.891 Personal history of nicotine dependence; Z92.21 Personal history of antineoplastic chemotherapy; Z79.51 Long term (current) use of inhaled steroids; Z79.899 Other long term (current) drug therapy; Z86.16 Personal history of COVID-19
CPT/HCPCS: 36415; 71045; 80048; 83735; 84443; 84484; 85025; 85379; 85610; 85730; 93005; 93306; 93458; 99152; 99153; 99284; J7030; Q9957; Q9967; A4216; C1769; C1894; C8929; J0612

== ENCOUNTER 2024-08-13 07:38 | Outpatient (CLI) | payer MEDICARE, OTHER, SELFPAY ==
--- NOTE | 2024-08-13 07:45 | CT_ITS ---
STUDY: CT CHEST, ABDOMEN T PELVIS WITH CONTRAST REASON FOR EXAM: Male, 79 years old. 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 Multiplanar coronal and sagittal images were reformatted. Individualized dose optimization techniques were used for this CT. COMPARISON: Comparison is made with prior study dated February 20, 2024. FINDINGS: CHEST A right-sided portacatheter is seen with the tip in the superior vena cava. Small fat-containing bilateral axillary lymph nodes. The lungs are normal. There is no demonstrated pleural abnormality. There are calcifications of the coronary arteries. Normal mediastinum. Normal hilar regions. Normal unenhanced pulmonary arteries. Normal aorta arch and descending thoracic aorta. There are multi-level degenerative changes of the thoracic spine. ABDOMEN There is decreased attenuation of the liver consistent with steatosis. 2 cm cyst is seen along the anterior midportion of the right lobe of the liver. Several scattered tiny hypodensities seen in the right lobe suggestive of small cysts. Normal gallbladder and extrahepatic biliary system. Normal spleen. Normal pancreas. Normal bilateral adrenal glands. Normal right kidney. Normal left kidney. There is a small hiatal hernia. Normal small intestine. Normal colon. The appendix is visualized and appears normal. There is scattered atherosclerotic calcification of the abdominal aorta, without a demonstrated aneurysm. Normal inferior vena cava. Normal retroperitoneum. Small lymph nodes are seen in the root of the mesentery. Small bilateral inguinal hernias containing fat. There are degenerative changes of the visualized lumbar spine. PELVIS Diffuse bladder wall thickening. Prostatic enlargement. Central prostatic calcifications. There is no pelvic fluid. There is no pelvic lymphadenopathy or mass lesion. Normal visualized pelvic arteries. CT/CT Chest, Abd, Pel w/Contrast IMPRESSION: Stable examination. Diffuse bladder wall thickening and prostatic enlargement with central prostatic calcifications. Electronically Signed: Yovani Mcwilliams MD at 12:20 EST ,
== END 2024-08-13 23:59 | disposition home or self-care (01) ==
LOC: CT 07:39
PROVIDERS: PCP Internal Medicine; Referring Provider Internal Medicine Hematology & Oncology; Visit Provider Internal Medicine Hematology & Oncology
DX: Z45.2 Encounter for adjustment and management of vascular access device (principal); C77.4 Secondary and unspecified malignant neoplasm of inguinal and lower limb lymph nodes; C67.8 Malignant neoplasm of overlapping sites of bladder; E11.42 Type 2 diabetes mellitus with diabetic polyneuropathy; D69.6 Thrombocytopenia, unspecified; R30.0 Dysuria; D64.9 Anemia, unspecified
CPT/HCPCS: 36591; 71260; 74177; 80053; 85025; 96360; Q9967; A4216

== ENCOUNTER → 2025-02-16 | Outpatient (CLI) | payer MEDICARE, OTHER, SELFPAY ==
--- NOTE | 2025-02-16 08:13 | CT_ITS ---
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 Coronal and Sagittal reconstruction series were provided. One or more dose reduction techniques were used (e.g., Automated exposure control, adjustment of the mA and/or kV according to patient size, use of iterative reconstruction technique. PATIENT PREPARATION: Per protocol ORAL CONTRAST TYPE: None. CONTRAST: Isovue 350. VOLUME: 100mL RADIATION DOSE SUMMARY: CTDlvol: 17.63 mGy DLP: 1500 mGycm COMPARISON: 08/13/2024. FINDINGS: A right-sided portacatheter is seen with the tip in the superior vena cava. Small fat-containing bilateral axillary lymph nodes, unchanged. Unchanged calcifications of the coronary arteries. Unchanged diffuse spondylosis. Unchanged hepatic steatosis. Unchanged 2 cm right renal simple cyst. Unchanged smaller hepatic cysts. Unchanged small sliding hiatal hernia. Unchanged atheromatous plaques of the aorta and its branches. Unchanged small bilateral fat containing inguinal hernias without incarceration. Unchanged diffuse spondylosis. Unchanged prostatomegaly. Unchanged scattered central prostatic calcifications. Unchanged mild diffuse thickening of the wall of the bladder. Normal enhancement of the main pulmonary artery and right and left pulmonary arteries. Normal enhancement of the bilateral peripheral pulmonary arteries. There is no demonstrated pulmonary embolism. Normal thoracic aorta and visualized great vessels. There is no demonstrated aortic dissection. Normal heart and pericardium. Normal mediastinum. Normal hilar regions. Normal visualized trachea and bronchi. The lungs are well expanded. Normal pulmonary parenchyma. Normal pleura. Normal gallbladder and extrahepatic biliary system. Normal spleen. Normal pancreas. Normal bilateral adrenal glands. Normal size of the right kidney. There is no right renal mass. There are no right renal calculi. There is no right hydronephrosis. Normal visualized right ureter. Normal size of the left kidney. There is no left renal mass. There are no left renal calculi. There is no left hydronephrosis. Normal visualized left ureter. Normal visualized stomach. Normal small intestine. Normal colon. The appendix is visualized and appears normal. There is no demonstrated peritoneal fluid. Normal inferior vena cava. Normal retroperitoneum. There is no pelvic mass lesion or lymphadenopathy. There is no pelvic fluid. CT/CT Chest, Abd, Pel w/Contrast IMPRESSION: Stable exam. [facility]
[2025-02-16 08:42] LABS: CREATININE FINGERSTICK 1.1 mg/dL (0.70-1.30); EGFR FINGERSTICK > 60.0000 mL/min (>60)
== END | disposition home or self-care (01) ==
LOC: CT 08:12
PROVIDERS: PCP Internal Medicine; Referring Provider Internal Medicine Hematology & Oncology; Visit Provider Internal Medicine Hematology & Oncology
DX: C67.8 Malignant neoplasm of overlapping sites of bladder (principal); C77.4 Secondary and unspecified malignant neoplasm of inguinal and lower limb lymph nodes
CPT/HCPCS: 71260; 74177

== ENCOUNTER → 2025-08-20 | Outpatient (CLI) | payer MEDICARE, OTHER, SELFPAY ==
--- NOTE | 2025-08-20 07:47 | CT_ITS ---
PROCEDURE: CT CHEST, ABD, PEL W/CONTRAST 08/20/2025 REASON FOR EXAM: BLADDER CA, IV CONTRAST ONLY Follow-up examination. TECHNIQUE: Chest, abdomen and pelvis CT with intravenous contrast. Coronal and Sagittal reconstruction series were provided. One or more dose reduction techniques were used (e.g., Automated exposure control, adjustment of the mA and/or kV according to patient size, use of iterative reconstruction technique. PATIENT PREPARATION: Per protocol ORAL CONTRAST TYPE: None. CONTRAST: Isovue 370 VOLUME: 100mL RADIATION DOSE SUMMARY: CTDlvol: 19.8 mGy DLP: 1831.87 mGycm COMPARISON: February 16, 2025. FINDINGS: CT CHEST: Hardware: None. The previously seen port a catheter has been removed. Lymph nodes: Stable small benign-appearing axillary lymph nodes. Heart and Vasculature: The heart is nonenlarged. No significant coronary artery calcification is present. Lungs and Airways: Lungs are clear. Pleura: No evidence of pleural effusion. Bones: Degenerative changes of the thoracic spine. CT ABDOMEN/PELVIS: Liver: Stable small hepatic cysts. Gallbladder: The gallbladder is contracted. Spleen: Normal size. Pancreas: Normal size without evidence of mass surrounding inflammation or ductal dilation. Adrenals: Unremarkable Kidneys: Normal renal sizes. No hydronephrosis. Bladder: Mild degree of diffuse bladder wall thickening. Prosthetic enlargement with indentation of the bladder base. Central prostatic calcifications. Bowel: Colonic diverticulosis without diverticulitis. Appendix: The appendix is not identified. There is no inflammatory process identified in the right lower quadrant to suggest appendicitis. Lymph nodes: Unremarkable. Vasculature: Mild atherosclerotic calcifications are noted. Peritoneum / Retroperitoneum: Small bilateral inguinal hernias containing fat. Bones: Degenerative changes of the spine. CT/CT Chest, Abd, Pel w/Contrast IMPRESSION: Stable examination. Reading Location: [place] [id number]
--- OUTSIDE RECORDS SUMMARY | 2025-08-20 08:11 | XMS RPT_ITS | CCD ---
Author Organization [facility] Care Team Providers Care Main Line Assembler Name Role Phone DR MATTEO REBOLLAR MD Primary Care Physician Matteo Rebollar MD Primary Care Provider Richard, Dr. Matteo Chan Primary Care Provider Dr. Matteo Rebollar Referring Provider Cebuben, Dr. Allan Chan Attending Provider Matteo Rebollar MD Primary Care Provider Matteo Rebollar MD Primary Care Provider Dr. Matteo Rebollar Primary Care Provider Cebul, Dr. Allan Chan Attending Provider Dr. Jalil Goel Referring Provider Dr. Matteo Rebollar Referring Provider Matteo Rebollar MD Primary Care Provider Robby Bernard S Unavailable Pedrito GRAFF, Myriam Unavailable Unavailable Dr. Robby Benitez Attending Provider Katie BREAD DISTRIBUTOR, REZA-C Yecenia Attending Provider Dr. Allan Gomes Referring Provider Dr. Allan Gomes Other Provider Dr. Matteo Rebollar Primary Care Provider Dr. Matteo Rebollar Referring Provider Mireya, Dr. Allan Chan Attending Provider Dr. Matteo Rebollar Primary Care Provider Dr. Matteo Rebollar Referring Provider Dr. Robby Benitez Attending Provider Dr. Matteo Rebollar Primary Care Provider Dr. Matteo Rebollar Referring Provider Katie BREAD DISTRIBUTOR, BREAD DISTRIBUTOR-C Yecenia Attending Provider Dr. Robby Benitez Attending Provider Dr. Mohsen Singletary Attending Provider Dr. Teo Ross Referring Provider [phone] Dr. Jim Ward Attending Provider Matteo Rebollar MD Primary Care Provider Matteo Rebollar MD Primary Care Provider Eli [facility], Robby Garcias Unavailable Myriam Major RN Unavailable Unavailable Clements COMMISSARY PRODUCTION SUPERVISOR.THREAD SPINNER, Angely Unavailable Antoine COMMISSARY PRODUCTION SUPERVISOR.COUNSEL, Dixon Unavailable Antoine COMMISSARY PRODUCTION SUPERVISOR.COUNSEL, Dixon Unavailable Antoine COMMISSARY PRODUCTION SUPERVISOR.COUNSEL, Dixon Unavailable Clements COMMISSARY PRODUCTION SUPERVISOR.THREAD SPINNER, Angely Unavailable Dr. Matteo Rebollar MD Primary Care Provider Dr. Matteo Rebollar MD Referring Provider Dr. Jim Ward DO Attending Provider Dr. Robby Benitez MD Attending Provider Dr. Robby Benitez MD Referring Provider Dr. Jim Ward DO Other Provider Antoine COBB-C, Dixon Other Provider Augie EID, Dr. Anthony Parmar Attending Provider Dr. See Erickson MD Attending Provider Matteo Rebollar MD Primary Care Provider Eli WAGGONER [facility] [place], Robby S Unavailable Jim Ward DO Unavailable TALAMPAS, MATTEO Referring Unavailable TALAMPAS, MATTEO Primary Care Unavailable BESSY GARCIA Attending Unavailable Talampas, Matteo D Primary Care Unavailable Anthony Ghosh Attending Unavailable Isckarus, Mansnahum Referring Unavailable Talampas, Matteo D Primary Care Unavailable See Erickson Attending Unavailable See Erickson Referring Unavailable See Erickson Attending Unavailable Kanwal Turner Admitting Unavailable See Erickson Consulting Unavailable Talampas, Matteo D Primary Care Unavailable Kanwal Turner Consulting Unavailable Marino Minaya Consulting Unavailable Marino Minaya Attending Unavailable Kelsi Morris Attending Unavailabl e Talampas, Matteo D Primary Care Unavailable Kanwal Turner Attending Unavailable Talampas, Matteo D Primary Care Unavailable Talampas, Matteo D Referring Unavailable Darlene Taylor NP Attending Unavailable Talampas, Matteo D Primary Care Unavailable See Erickson Attending Unavailable Talampas, Matteo D Referring Unavailable Talampas, Matteo D Primary Care Unavailable See Erickson Attending Unavailable Jim Ward Attending Unavailable Talampas, Matteo D Primary Care Unavailable Talampas, Matteo D Referring Unavailable Jim Ward Attending Unavailable Talampas, Matteo D Primary Care Unavailable Talampas, Matteo D Primary Care Unavailable Robby Benitez Attending Unavailable DesirekarusRobby Referring Unavailable Talampas, Matteo D Primary Care Unavailable Robby Benitez Attending Unavailable DesirekarusRobby Referring Unavailable Jim Ward Consulting Unavailable Talampas, Matteo D Primary Care Unavailable DesirekarRobby burkett Attending Unavailable Bashirus, Ricardoour Referring Unavailable Antoine COBB, Dixon Consulting Unavailable See Erickson Consulting Unavailable Kanwal Turner Admitting Unavailable Marino Minaya Attending Unavailable Talampas, Matteo D Primary Care Unavailable Kanwal Turner Consulting Unavailable Talampas, Matteo D Primary Care Unavailable Talampas, Matteo D Referring Unavailable BashirusRobby Attending Unavailable Talampas, Matteo D Primary Care Unavailable Talampas, Matteo D Referring Unavailable Jim Ward Attending Unavailable Talampas, Matteo D Primary Care Unavailable Talampas, Matteo D Referring Unavailable Robby Benitez Attending Unavailable Richard EID, Dr. Matteo Chan Primary Care Physician Eli EID, Dr. Bustamante Attending Physician Dr. Jim Ward DO Nurse Practitioner Antoine BREAD DISTRIBUTOR-C, Dixon Nurse Practitioner Richard EID, Dr. Matteo Chan Referring Provider Augie EID, Dr. Anthony Parmar Attending Physician [phone] Dr. See Erickson MD Attending Physician Ed RANGEL, Dr. Fernandez Attending Physician DIXON ROSEN Attending Unavailable TALAMPAS, MATTEO D Primary Care Unavailable TALAMPAS, MATTEO D Referring Unavailable TALAMPAS, MATTEO D Primary Care Unavailable DIXON ROSEN Attending Unavailable TALAMPAS, MATTEO D Primary Care Unavailable TALAMPAS, MATTEO D Referring Unavailable TALAMPAS, MATTEO D Primary Care Unavailable TALAMPAS, MATTEO D Primary Care Unavailable TALAMPAS, MATTEO D Attending Unavailable TALAMPAS, MATTEO D Primary Care Unavailable TALAMPAS, MATTEO D Referring Unavailable TALAMPAS, MATTEO D Primary Care Unavailable Allergies Allergy Classification Reported Allergen(s) Allergy Type Date of Onset Reaction(s) Facility (20 sources) metFORMIN; Translations: [METFORMIN] Drug Allergy 0 Diarrhea, GI Upset, Dyspepsia [facility] Work Phone: (20 sources) Seasonal allergy; Translations: [SEASONAL ALLERGIES] Allergy to substance 0 Cough [facility] (20 sources) Ipratropium; Translations: [IPRATROPIUM] Drug Allergy 2 Shortness of Breath, Other: See Comments [facility] Comment on above: WHILE RECEIVING A DU ONEB BREATHING TX; DEVELOPED AUDIBLE STRIDOR WITHIN 30 SECONDS TO 60 SECONDS. PATIENT USES ALBUTEROL INHALER WITHOUT REACTION (1 source) Ipratropium Drug Allergy 5 [facility] Repository Medications Current Medications Medication Drug Class(es) Dates Sig (Normalized) Sig (Original) [id number] 200 actuat albuterol 0.09 mg/actuat metered dose inhaler (20 sources) beta2-Adrenergic Agonist Start: 06-04-2024 Albuterol Sulfate 90 mcg/actuation HFA aerosol inhaler Active 2 NMA INHALATION Q8H as needed for wheezing June 04, 2024 12:00am Complies with drug therapy Start: 02-07-2022 End: 02-16-2025 take 2 puff(s) by inhalation every four hours as needed for wheezing albuterol HFA (VENTOLIN HFA) 90 mcg/actuation inhaler Inhale 2 puffs as instructed every 4 hours as needed for wheezing/shortness of breath. 1 each 2 02/17/2025 Active Start: 06-15-2021 Albuterol Sulf ate Active 1 PUFF INHALATION NEEDED June 15, 2021 12:09pm Start: 06-15-2021 End: 06-04-2024 Albuterol Sulfate 90 mcg/act uation HFA aerosol inhaler Discontinued 1 NMA INHALATION NEEDED as needed for ALLERGIES June 15, 2021 12:00am June 04, 2024 4:22pm Start: 06-15-2021 Albuterol Sulf ate Active 1 PUFF INHALATION NEEDED June 15, 2021 12:00am Start: 02-24-2021 End: 02-04-2022 take 2 puff(s) by inhalation every four hours as needed for wheezing albuterol HFA (VENTOLIN HFA) 90 mcg/actuation inhaler Inhale 2 Puffs as instructed every 4 hours as needed for wheezing/shortness of breath. Patient requests Relion brand 60 puffs for $9 1 Each 2 02/24/2021 02/04/2022 Discontinued ALBUTEROL IN Inh rita. Active ALBUTEROL IN Inh rita. 0 Active Comment on above: Inhale 2 Puffs as in structed every 4 hours as needed for wheezing/shortness of breath. Patient requests Relion brand 60 puffs for $9 aspirin 81 mg delayed release oral tablet (5 sources) Platelet Aggregation Inhibitor, Nonsteroidal Anti-inflammatory Drug Start: 024 take 1 tablet by mouth at breakfast Aspirin 81 mg Tablet,Delayed Release (Dr/Ec) Active 81 mg PO WITH BREAKFAST 0 0 June 06, 2024 12:00am Complies with drug therapy atorvastatin 40 mg oral tablet (20 sources) HMG-CoA Reductase Inhibitor Start: End: take 1 tablet by mouth at bedtime Atorvastatin 40 mg Tablet Active 40 mg PO AT BEDTIME 30 0 June 06, 2024 12:00am Complies with drug therapy Start: 02-06-2023 End: 07-08-2024 take 1 tablet by mouth at bedtime Atorvastatin (Lipitor) 20 mg tablet Discontinued 20 mg PO AT BEDTIME August 08, 2023 10:17am June 06, 2024 9:28am cholesterol Start: 12-05-2022 End: 08-08-2023 take 2 tablets by mouth once daily Atorvastatin (Lipitor) 20 mg tablet Discontinued 40 mg PO daily December 05, 2022 3:05pm August 08, 2023 10:17am Start: 09-07-2017 End: 12-05-2022 take 1 tablet by mouth once daily Atorvastatin (Lipitor) 20 mg tablet Discontinued 20 mg PO daily September 07, 2017 1:00am December 05, 2022 3:06pm Comment on above: Take 1 tablet by alice th once daily. Please note dose change. Do not cut tablet in half. B Complex capsule (1 source) take 1 capsule by mouth once daily B Complex capsule Take 1 capsule by mouth daily. Active 24 hr buPROPion hydrochloride 150 mg extended release oral tablet (20 sources) Aminoketone Start: End: take 1 tablet by mouth once daily in the morning Bupropion Hcl (Wellbutrin Xl) 150 mg tablet extended release 24 hr Active 150 mg PO EVERY MORNING February 27, 2024 12:00am [facility] Complies with drug therapy doxycycline hyclate 100 mg oral tablet (1 source) Tetracycline-class Drug Start: End: take 1 tablet by mouth twice daily doxycycline (VIBRA-TABS) 100 mg tablet Take 1 tablet by mouth two times a day for 7 days. 14 tablet 0 03/20/2024 03/27/2024 Active sildenafil 100 mg oral tablet (20 sources) Phosphodiesterase 5 Inhibitor Start: Sildenafil 100 mg tablet Active 100 mg PO daily as needed for ED June 30, 2024 12:00am administer 30 minutes to 4 hours before activity Complies with drug therapy Start: 09-27-2020 End: 11-19-2024 sildenafil (VIAGRA) 100 mg t ablet Indications: Erectile dysfunction, unspecified erectile dysfunction type Take half to whole pill as directed prior to intercourse. 9 tablet 3 11/19/2024 Active Start: 09-07-2017 End: 06-04-2024 take 1 tablet by mouth once as needed for edema Sildenafil 100 mg tablet Discontinued 100 mg PO ONCE as needed for Edema September 07, 2017 1:00am June 04, 2024 4:21pm take 2 tablets by mo [facility] once daily as needed sildenafil citrate 50 MG tablet Take 2 tablets by mouth daily as needed. Active Comment on above: Take half to whole p ill as directed prior to intercourse. vitamin b12 0.5 mg oral tablet (2 sources) Vitamin B12 Start: take 1 tablet by mouth once daily Cyanocobalamin (Vitamin B-12) 500 mcg tablet Active 500 ug PO daily March 17, 2025 12:00am Complies with drug therapy Start: 03-17-2025 take 1 tablet by [facility] once daily Cyanocobalamin (Vitamin B-12) 500 mcg tablet Active 500 ug PO daily March 17, 2025 12:00am Completed/Discontinued Medications Medication Drug Class(es) Dates Sig (Normalized) Sig (Original) acetaminophen 325 mg / HYDROcodone bitartrate 5 mg oral tablet (20 sources) Opioid Agonist Start: 06-14-2019 End: 06-14-2019 Hydrocodone-Acetami nophen ([place]) 5-325 mg tablet Discontinued 1 {tbl} PO EVERY 6 HOURS 5 June 14, 2019 June 14, 2019 12:07pm post op pain Take as needed for pain not controlled by routine over the counter medication Start: 06-14-2019 End: 06-14-2019 Hydrocodone-Acetaminophen ([place]) 5-325 mg tablet Discontinued 1 {tbl} PO EVERY 6 HOURS 5 June 14, 2019 June 14, 2019 12:07pm post op pain Take as needed for pain not controlled by routine over the counter medication Start: 06-14-2019 End: 06-14-2019 Hydrocodone-Acetaminophen ([place]) 5-325 mg tablet Discontinued 1 {tbl} PO EVERY 6 HOURS 5 June 14, 2019 June 14, 2019 12:07pm post op pain Take as needed for pain not controlled by routine over the counter medication Start: 06-14-2019 End: 06-14-2019 Hydrocodone-Acetaminophen ([place]) 5-325 mg tablet Discontinued 1 {tbl} PO EVERY 6 HOURS June 14, 2019 June 14, 2019 12:07pm Take as needed for pain not controlled by routine over the counter medication Start: 06-14-2019 End: 06-14-2019 Hydrocodone-Acetaminophen ([place]) 5-325 mg tablet Discontinued 1 {tbl} PO EVERY 6 HOURS June 14, 2019 June 14, 2019 12:07pm Take as needed for pain not controlled by routine over the counter medication Start: 06-14-2019 End: 06-14-2019 take 1 tablet by mouth every six hours as needed for pain Hydrocodone-Acetaminophen ([place]) 5-325 mg tablet Discontinued 1 TABLET PO EVERY 6 HOURS June 14, 2019 June 14, 2019 12:07pm Take as needed for pain not controlled by routine over the counter medication Start: 06-14-2019 End: 06-14-2019 take 1 tablet by mouth every six hours as needed for pain Hydrocodone-Acetaminophen ([place]) 5-325 mg tablet Discontinued 1 TABLET PO EVERY 6 HOURS June 14, 2019 June 14, 2019 12:07pm Take as needed for pain not controlled by routine over the counter medication Start: 06-14-2019 End: 06-14-2019 take 1 tablet by mouth every six hours as needed for pain Hydrocodone-Acetaminophen ([place]) 5-325 mg tablet Discontinued 1 TABLET PO EVERY 6 HOURS June 14, 2019 June 14, 2019 12:07pm Take as needed for pain not controlled by routine over the counter medication Start: 06-14-2019 End: 06-14-2019 take 1 tablet by mouth every six hours as needed for pain Hydrocodone-Acetaminophen ([place]) 5-325 mg tablet Discontinued 1 TABLET PO EVERY 6 HOURS June 14, 2019 June 14, 2019 12:07pm Take as needed for pain not controlled by routine over the counter medication Start: 06-14-2019 End: 06-14-2019 take 1 tablet by mouth every six hours as needed for pain Hydrocodone-Acetaminophen ([place]) 5-325 mg tablet Discontinued 1 TABLET PO EVERY 6 HOURS June 14, 2019 June 14, 2019 12:07pm Take as needed for pain not controlled by routine over the counter medication Start: 06-14-2019 End: 06-14-2019 take 1 tablet by mouth every six hours as needed for pain Hydrocodone-Acetaminophen ([place]) 5-325 mg tablet Discontinued 1 TABLET PO EVERY 6 HOURS June 14, 2019 June 14, 2019 12:07pm Take as needed for pain not controlled by routine over the counter medication Start: 06-14-2019 End: 06-14-2019 take 1 tablet by mouth every six hours as needed for pain Hydrocodone-Acetaminophen ([place]) 5-325 mg tablet Discontinued 1 TABLET PO EVERY 6 HOURS June 14, 2019 June 14, 2019 12:07pm Take as needed for pain not controlled by routine over the counter medication Start: 06-14-2019 End: 06-14-2019 take 1 tablet by mouth every six hours as needed for pain Hydrocodone-Acetaminophen ([place]) 5-325 mg tablet Discontinued 1 TABLET PO EVERY 6 HOURS June 14, 2019 June 14, 2019 12:07pm Take as needed for pain not controlled by routine over the counter medication Start: 06-14-2019 End: 06-14-2019 take 1 tablet by mouth every six hours as needed for pain Hydrocodone-Acetaminophen ([place]) 5-325 mg tablet Discontinued 1 TABLET PO EVERY 6 HOURS June 14, 2019 June 14, 2019 12:07pm Take as needed for pain not controlled by routine over the counter medication Start: 06-14-2019 End: 06-14-2019 take 1 tablet by mouth every six hours as needed for pain Hydrocodone-Acetaminophen ([place]) 5-325 mg tablet Discontinued 1 TABLET PO EVERY 6 HOURS June 14, 2019 11:31am June 14, 2019 12:07pm Take as needed for pain not controlled by routine over the counter medication Start: 09-26-2017 End: 06-05-2019 take 1 tablet by mouth every six hours as needed for pain Hydrocodone-Acetaminophen ([place]) 5-325 mg tablet Discontinued 1 {tbl} PO EVERY 6 HOURS as needed for pain 5 0 September 26, 2017 June 05, 2019 8:45am Localized swelling, mass and lump, unspecified upper limb Take 1 tablet every 6 hours as needed for pain acetaminophen 325 mg / oxyCODONE hydrochloride 5 mg oral tablet (15 sources) Opioid Agonist Start: 08-19-2021 End: 01-18-2022 Oxycodone-Acetaminophen 5-32 5 mg tablet Discontinued 1 {tbl} PO Q4H as needed for pain 14 7 0 August 19, 2021 January 18, 2022 1:37pm History of transurethral destruction of bladder lesion Other specified postprocedural states Start: 08-19-2021 End: 01-18-2022 take 1 tablet by mouth every four hours Oxycodone-Acetaminophen Discontinued 1 TABLET PO Q4H 14 7 August 19, 2021 January 18, 2022 1:37pm augmented betamethasone 0.5 mg/ml topical cream (8 sources) Corticosteroid Start: 02-20-2023 End: 06-04-2024 Betamethasone, Augmented 0.05 % cream Discontinued 1 NMA TOPICAL DAILY February 20, 2023 12:00am June 04, 2024 4:22pm bisacodyl 5 mg delayed release oral tablet (8 sources) Stimulant Laxative Start: 03-06-2023 End: 06-04-2024 take 1 tablet by mouth once daily as needed for constipation Bisacodyl (Dulcolax (Bisacodyl)) 5 mg tablet,delayed release (DR/EC) Discontinued 5 mg PO DAILY as needed for constipation March 06, 2023 12:00am June 04, 2024 4:22pm ciprofloxacin 500 mg oral tablet (14 sources) Quinolone Antimicrobial Start: 04-13-2023 End: 05-07-2023 take 1 tablet by mouth twice daily Ciprofloxacin Hcl (Cipro) 500 mg tablet Discontinued 500 mg PO TWICE A DAY 10 0 April 18, 2023 12:00am April 30, 2023 8:47am clopidogrel 75 mg oral tablet (5 sources) [id number] Platelet Inhibitor Start: 06-06-2024 End: 08-25-2024 Clopidogrel 75 mg Tablet Discontinued 75 mg PO DAILY 42 0 June 06, 2024 12:00am August 25, 2024 3:00pm For 6 weeks then stop cyanocobalamin, vitamin B-12, (VITAMIN B-12 ORAL) (3 sources) End: 02-05-2024 take 1 tablet by mouth once daily cyanocobalamin, vitamin B-12, (VITAMIN B-12 ORAL) Take 1 tablet by mouth once daily. 0 02/05/2024 Discontinued take 1 tablet by mouth once angelika y cyanocobalamin, vitamin B-12, (VITAMIN B-12 ORAL) Take 1 tablet by mouth once daily. 0 Active Comment on above: Take 1 tablet by alice th once daily. docusate sodium 100 mg oral capsule (8 sources) Start: 3 End: 4 take 1 capsule by mouth once daily Docusate Sodium (Stool Softener) 100 mg capsule Discontinued 100 mg PO DAILY March 06, 2023 12:00am June 04, 2024 4:21pm finasteride 5 mg oral tablet (20 sources) 5-alpha Reductase Inhibitor Start: 7 End: 4 take 1 tablet by mouth once daily Finasteride 5 mg tablet Discontinued 5 mg PO DAILY April 30, 2023 12:00am May 07, 2023 8:32am Comment on above: Take 1 tablet by ailce th once daily. glipiZIDE er 2.5 mg 24 hr extended release oral tablet (20 sources) Sulfonylurea Start: 5 End: 5 take 1 tablet by mouth every twenty-four hours Glipizide 2.5 mg tablet extended release 24hr Discontinued mg PO March 05, 2025 12:00am March 17, 2025 8:58am Diabetes Start: 02-19-2025 take 1 tablet by alice th once daily Glipizide 2.5 mg tablet extended release 24hr Active 2.5 mg PO daily March 17, 2025 8:58am Diabetes Complies with drug therapy Start: 02-13-2025 End: 02-19-2025 take 1 tablet by mouth once daily before breakfast glipiZIDE 2.5 mg tablet Indications: Controlled type 2 diabetes mellitus with diabetic polyneuropathy, without long-term current use of insulin (HCC) Take 1 tablet by mouth daily before breakfast. As directed 90 tablet 3 02/13/2025 02/19/2025 Discontinued (Not on Formulary) Start: 05-07-2023 End: 06-04-2024 Glipizide 5 mg tablet Discon tinued 5 mg PO THREE TIMES A DAY May 07, 2023 8:34am June 04, 2024 4:22pm administer if blood sugar >250 Start: 03-21-2023 End: 02-13-2025 take 1 tablet by mouth twice daily before mealtime glipiZIDE (GLUCOTROL) 5 mg tablet Take 1 tablet by mouth twice daily before meals. As directed 60 tablet 5 03/21/2023 02/13/2025 Discontinued Start: 02-27-2023 End: 05-07-2023 Glipizide 5 mg tablet Discon tinued 5 mg PO TWICE A DAY February 27, 2023 12:00am May 07, 2023 8:34am administer if blood sugar >250 Start: 02-20-2023 take 1 tablet by alice th once daily glipiZIDE (GLUCOTROL) 5 mg tablet Take 1 tablet by mouth once daily. As directed for blood sugars over 250 30 tablet 1 02/20/2023 Active End: 04-02-2025 glipiZIDE 5 MG tablet regula r release If blood sugar is above 180 04/02/2025 Discontinued (Formulary change) Comment on above: Take 1 tablet by alice th once daily. As directed for blood sugars over 250 Take 1 tablet by alice th twice daily before meals. As directed ibuprofen 600 mg oral tablet (15 sources) Nonsteroidal Anti-inflammatory Drug Start: 06-22-20 End: 05-28-20 take 1 tablet by mouth every six hours as needed for pain Ibuprofen 600 mg tablet Discontinued 600 mg PO EVERY 6 HOURS as needed for pain 14 0 June 22, 2021 12:00am May 28, 2023 10:40am levothyroxine sodium 0.125 mg oral capsule (20 sources) l-Thyroxine Start: 08-01-20 End: 06-04-20 Levothyroxine 125 mcg capsule Discontinued 112 ug PO daily 0 August 01, 2023 10:40am June 04, 2024 4:21pm Start: 07-31-2023 End: 02-13-2025 take 1 tablet by mouth once daily in the morning Levothyroxine 112 mcg tablet Active 112 ug PO .qa June 04, 2024 12:00am thyroid Complies with drug therapy Start: 02-06-2023 End: 07-31-2023 take 1 tablet by mouth once daily levothyroxine (SYNTHROID) 125 mcg tablet Indications: Acquired hypothyroidism Take 1 tablet by mouth once daily. 90 tablet 3 02/06/2023 07/31/2023 Discontinued Start: 12-05-2022 End: 08-01-2023 Levothyroxine 125 mcg capsul e Discontinued 25 ug PO daily 0 December 05, 2022 3:05pm August 01, 2023 10:40am Start: 06-30-2021 End: 05-05-2022 take 1 tablet by mouth once daily levothyroxine (SYNTHROID) 125 mcg tablet Take 1 tablet by mouth once daily. 90 tablet 3 05/05/2022 Active Start: 09-07-2017 End: 12-05-2022 take 1 capsule by mouth once daily Levothyroxine 125 mcg capsule Discontinued 125 ug PO daily 0 September 07, 2017 1:00am December 05, 2022 3:06pm take 1 tablet by alice th once daily before breakfast Levothyroxine 25 MCG tablet Take 1 tablet by mouth every morning before breakfast. 0 Active Comment on above: Take 1 tablet by alice th once daily. 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 Malignant neoplasm of bladder, unspecified Start: 02-07-2023 Lidocaine-Pril ocaine Active 1 APPLIC TOPICAL ONCE February 07, 2023 12:00am magnesium oxide 400 mg oral tablet (6 sources) Start: 06-25-2023 End: 06-25-2023 take 1 tablet by mouth once daily Magnesium Oxide 400 mg magnesium tablet Discontinued 400 mg PO DAILY June 25, 2023 12:00am June 25, 2023 10:22am ondansetron 8 mg disintegrating oral tablet (9 sources) Serotonin-3 Receptor Antagonist Start: 02-07-2023 End: 06-04-2024 take 1 tablet by mouth every eight hours as needed for nausea and vomiting Ondansetron 8 mg tablet,disintegrating Discontinued 8 mg PO Q8H as needed for nausea and vomiting February 07, 2023 12:00am June 04, 2024 4:21pm Malignant neoplasm of urinary 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 Malignant neoplasm of bladder, unspecified polyethylene glycol 3350 [id number] mg powder for oral solution (8 sources) Osmotic Laxative Start: 03-12-2023 End: 06-04-2024 Polyethylene Glycol 3350 (Miralax) 17 gram powder in packet Discontinued 17 g PO DAILY as needed for constipation March 12, 2023 12:00am June 04, 2024 4:21pm prochlorperazine 10 mg oral tablet (9 sources) Phenothiazine Start: 02-07-2023 End: 06-04-2024 take 1 tablet by mouth every six hours as needed for nausea and vomiting Prochlorperazine Maleate 10 mg tablet Discontinued 10 mg PO EVERY 6 HOURS as needed for nausea and vomiting 30 2 February 07, 2023 12:00am June 04, 2024 4:21pm Chemotherapy-induced nausea and vomiting Malignant neoplasm of urinary bladder Nausea with vomiting, unspecified Adverse effect of antineoplastic and immunosuppressive drugs, initial encounter Malignant neoplasm of bladder, unspecified sertraline 50 mg oral tablet (20 sources) Serotonin Reuptake Inhibitor Start: 09-07-2017 End: 12-01-2024 take 1 tablet by mouth once daily Sertraline 50 mg tablet Discontinued 50 mg PO daily September 07, 2017 1:00am December 01, 2024 9:06am mental health Comment on above: Take 1 tablet by alice once daily. sulfamethoxazole 800 mg / trimethoprim 160 mg oral tablet (15 sources) Dihydrofolate Reductase Inhibitor Antibacterial, Sulfonamide Antimicrobial Start: 08-19-2021 End: 01-18-2022 Sulfamethoxazole-Trim ethoprim (Bactrim Ds) 800-160 mg tablet Discontinued 1 {tbl} PO TWICE A DAY 14 0 August 19, 2021 1:00am January 18, 2022 1:37pm tamsulosin hydrochloride 0.4 mg oral capsule (20 sources) alpha-Adrenergic Shilo Start: 03-27-2023 End: 04-18-2023 take 2 capsules by mouth at bedtime Tamsulosin 0.4 mg capsule Discontinued 0.8 mg PO AT BEDTIME March 27, 2023 9:17am April 18, 2023 3:38pm Start: 03-27-2023 End: 04-18-2023 take 0.8 mg by mouth at bedtime Tamsulosin Discontinue d 0.8 MG PO AT BEDTIME March 27, 2023 9:17am April 18, 2023 3:38pm Start: 09-07-2017 End: 02-05-2024 take 1 capsule by mouth once daily Tamsulosin 0.4 mg capsule Discontinued 0.4 mg PO DAILY April 30, 2023 12:00am May 07, 2023 8:32am Comment on above: Take 1 capsule by mo uth once daily. Problems Active Problems Problem Classification Problem Date Documented Da te Episodic/Chronic Acute myocardial infarction (7 sources) Myocardial infarction; Translations: [Non-ST elevation (NSTEMI) myocardial infarction] Onset: 06-16-2024 06-10-2024 Chronic Administrative/social admission (3 sources) Counseling, unspecified; Translations: [Counseling NOS] 02-07-2023 Episodic Aortic; peripheral; and visceral artery aneurysms (6 sources) Aortic root dilatation; Translations: [Thoracic aortic ectasia] 06-30-2024 Chronic Asthma (20 sources) Cough variant asthma; Translations: [Cough variant asthma] Onset: 12-10-2013 12-10-2013 Chronic Comment on above: COUGH VARIANT, INHAL ER PRN Cancer of bladder (20 sources) Carcinoma of bladder ; Translations: [Malignant neoplasm of bladder, unspecified] Onset: 02-13-2025 Chronic Cancer of other urinary organs (6 sources) Malignant epithelial neoplasm; Translations: [Malignant neoplasm of urinary organ, unspecified] Onset: 01-26-2023 Chronic Cataract (2 sources) Bilateral cataracts; Translations: [Unspecified cataract] Onset: 08-11-2024 08-11-2024 Chronic Coagulation and hemorrhagic disorders (20 sources) Platelet count below reference range; Translations: [Thrombocytopenia, unspecified] Onset: 10-24-2020 10-24-2020 Chronic Coronary atherosclerosis and other heart disease (7 sources) Coronary arteriosclerosis; Translations: [Atherosclerotic heart disease of quechan coronary artery without angina pectoris] 06-10-2024 Chronic Deficiency and other anemia (7 sources) Anemia; Translations: [Anemia, unspecified] 05-21-2023 Episodic Deficiency and other anemia (3 sources) Anemia, unspecified; Translations: [Anemia, unspecified] 05-21-2023 Episodic Deficiency and other anemia (1 source) Macrocytic anemia; Translations: [Nutritional anemia, unspecified] 07-31-2023 Episodic Diabetes mellitus with complications (8 sources) Type 2 diabetes mellitus; Translations: [Type 2 diabetes mellitus with diabetic polyneuropathy] Onset: 02-04-2016 02-05-2024 Chronic Diabetes mellitus without complication (20 sources) Type 2 diabetes mellitus without complication; Translations: [Type 2 diabetes mellitus without complications] Onset: 02-04-2016 02-04-2016 Chronic Comment on above: DIET CONTROLLED Disorders of lipid metabolism (20 sources) Pure hypercholesterolemia ; Translations: [Pure hypercholesterolemia , unspecified] Onset: 02-13-2006 06-11-2013 Chronic Essential hypertension (4 sources) Essential hypertension; Translations: [Essential (primary) hypertension] Onset: 02-13-2025 08-11-2024 Chronic Genitourinary symptoms and ill-defined conditions (20 sources) Dysuria; Translations: [Dysuria] Onset: 07-05-2011 Resolved: 06-11-2013 03-27-2023 Episodic Hyperplasia of prostate (20 sources) Benign prostatic hyperplasia; Translations: [Benign prostatic hyperplasia without lower urinary tract symptoms] Onset: 07-05-2011 02-21-2018 Chronic Lymphadenitis (2 sources) Inguinal lymphadenopathy; Translations: [Localized enlarged lymph nodes] 12-05-2022 Episodic Maintenance chemotherapy; radiotherapy (12 sources) Patient encounter status; Translations: [Encounter for antineoplastic chemotherapy] 02-27-2023 Chronic Mood disorders (20 sources) Depressive disorder; Translations: [Depression] Onset: 03-27-2012 03-27-2012 Chronic Nonspecific chest pain (5 sources) Chest pain; Translations: [Chest pain, unspecified] 06-10-2024 Episodic Osteoarthritis (9 sources) Arthritis; Translations: [Unspecified osteoarthritis, unspecified site] 12-13-2022 Chronic Other aftercare (15 sources) Patient encounter status; Translations: [Other intermediate accountant (current) drug therapy] Episodic Other aftercare (1 source) Long-term current use of drug therapy; Translations: [Other intermediate accountant (current) drug therapy] 06-10-2024 Episodic Other diseases of kidney and ureters (5 sources) Renal insufficiency; Translations: [Disorder of kidney and ureter, unspecified] 06-06-2024 Episodic Other ear and sense organ disorders (6 sources) Tinnitus; Translations: [Tinnitus, unspecified ear] 05-21-2023 Episodic Other ear and sense organ disorders (3 sources) Tinnitus, unspecified ear; Translations: [Tinnitus, unspecified] 05-21-2023 Episodic Other ear and sense organ disorders (1 source) Bilateral tinnitus; Translations: [Tinnitus, bilateral] 09-11-2023 Episodic Other male genital disorders (20 sources) Male erectile dysfunction, unspecified; Translations: [Impotence of organic origin] Onset: 02-10-2013 Chronic Other nervous system disorders (1 source) Neuropathy of lower limb; Translations: [Unspecified mononeuropathy of bilateral lower limbs] 09-11-2023 Chronic Other nervous system disorders (1 source) Bilateral peripheral neuropathy of lower limbs; Translations: [Unspecified mononeuropathy of bilateral lower limbs] 02-05-2024 Chronic Other nervous system disorders (1 source) Impairment of balance; Translations: [Other abnormalities of gait and mobility] 09-11-2023 Episodic Other nutritional; endocrine; and metabolic disorders (1 source) Hypomagnesemia; Translations: [Hypomagnesemia] 06-10-2024 Chronic Other skin disorders (15 sources) Skin lesion; Translations: [Disorder of the skin and subcutaneous tissue, unspecified] 06-05-2019 Episodic Other skin disorders (2 sources) Disorder of the skin and subcutaneous tissue, unspecified; Translations: [Unspecified disorder of skin and subcutaneous tissue] Episodic Other skin disorders (1 source) Papule of skin; Translations: [Other skin changes] 03-17-2024 Episodic Other upper respiratory disease (1 source) Acute bronchospasm; Translations: [Acute bronchospasm] 06-10-2024 Episodic Residual codes; unclassified (15 sources) H/O: major abdominal surgery; Translations: [Other specified postprocedural states] 08-19-2021 Episodic Comment on above: MITOMYCIN C INSTILLA TION 06/2021 Secondary malignancies (20 sources) Secondary malignant neoplasm of inguinal lymph nodes; Translations: [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] Onset: 03-04-2023 12-13-2022 Chronic Secondary malignancies (20 sources) 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; Translations: [Secondary and unspecified malignant neoplasm of lymph nodes of inguinal region and lower limb] Onset: 03-04-2023 12-13-2022 Chronic Skin and subcutaneous tissue infections (1 source) Pustule ; Translations: [Local infection of the skin and subcutaneous tissue, unspecified] 03-17-2024 Episodic Syncope (5 sources) Near syncope; Translations: [Syncope and collapse] 06-10-2024 Episodic Thyroid disorders (20 sources) Non-toxic uninodular goiter; Translations: [Nontoxic single thyroid nodule] Onset: 04-10-2012 Resolved: 06-17-2015 04-10-2012 Chronic Thyroid disorders (9 sources) Disorder of thyroid gland; Translations: [Disorder of thyroid, unspecified] 12-13-2022 Episodic Comment on above: ON MED Unclassified (4 sources) C77.4 - 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,C67.8 - Malignant neoplasm of overlapping sites of bladder Unclassified (2 sources) 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 Unclassified (2 sources) Malignant neoplasm of urinary bladder Viral infection (1 source) Disease caused by 2019-nCoV; Translations: [COVID-19] 06-10-2024 Episodic Past or Other Problems Problem Classification Problem Date Documented Da te Episodic/Chronic Allergic reactions (20 sources) Solar degeneration; Translations: [Other skin changes due to chronic exposure to nonionizing radiation] Onset: 02-18-2012 02-18-2012 Episodic Diabetes mellitus without complication (18 sources) Impaired fasting glycemia; Translations: [Impaired fasting glucose] Onset: 03-24-2009 Resolved: 08-14-2017 08-14-2017 Episodic Fluid and electrolyte disorders (7 sources) Dehydration; Translations: [Dehydration] Onset: 06-16-2024 05-21-2023 Episodic Mood disorders (4 sources) Mood disorders Onset: 02-08-2023 Resolved: 04-03-2024 02-08-2023 Neoplasms of unspecified nature or uncertain behavior (20 sources) Neoplasm of uncertain behavior of thyroid gland; 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] Onset: 04-16-2012 04-16-2012 Episodic Other aftercare (1 source) Encounter for adjustment and management of vascular access device; Translations: [Encounter for adjustment and management of vascular access device] Onset: 11-03-2024 Episodic Other and unspecified benign neoplasm (20 sources) Dysplastic nevus of trunk; Translations: [Melanocytic nevi of trunk] Onset: 02-18-2012 02-18-2012 Episodic Other and unspecified benign neoplasm (20 sources) Melanocytic nevus of trunk; Translations: [Melanocytic nevi of trunk] Onset: 02-18-2012 02-18-2012 Episodic Other and unspecified benign neoplasm (20 sources) Senile angioma; Translations: [Hemangioma of skin and subcutaneous tissue] Onset: 02-18-2012 02-18-2012 Episodic Other and unspecified benign neoplasm (18 sources) Dysplastic nevus of skin; Translations: [Melanocytic nevi, unspecified] Onset: 04-16-2012 Resolved: 06-11-2013 06-11-2013 Episodic Other liver diseases (20 sources) Increased creatine kinase level; Translations: [Abnormal levels of other serum enzymes] Onset: 01-10-2015 01-10-2015 Episodic Other nutritional; endocrine; and metabolic disorders (18 sources) Obese class I; Translations: [Obesity, unspecified] Onset: 01-10-2015 Resolved: 09-16-2019 09-16-2019 Chronic Other nutritional; endocrine; and metabolic disorders (20 sources) Body mass index 25-29 - overweight; Translations: [Overweight] Onset: 09-16-2019 09-16-2019 Episodic Other screening for suspected conditions (not mental disorders or infectious disease) (20 sources) Prerenal azotemia; Translations: [Other specified abnormal findings of blood chemistry] Onset: 06-16-2024 02-27-2023 Episodic Other skin disorders (20 sources) Seborrheic keratosis; Translations: [Other seborrheic keratosis] Onset: 02-18-2012 02-18-2012 Episodic Other skin disorders (20 sources) Solar lentigo; Translations: [Other melanin hyperpigmentation] Onset: 02-18-2012 02-18-2012 Episodic Other skin disorders (20 sources) Skin tag; Translations: [Other hypertrophic disorders of the skin] Onset: 02-18-2012 02-18-2012 Episodic Other skin disorders (20 sources) Scar; Translations: [Scar conditions and fibrosis of skin] Onset: 02-18-2012 02-18-2012 Episodic Residual codes; unclassified (20 sources) H/O: urinary disease; Translations: [Personal history of other specified conditions] Onset: 05-21-2014 05-21-2014 Episodic Unclassified (1 source) Onset: 04-03-2024 04-03-2024 Results Test Name Value Interpretation Reference Range Facility ALBUMIN/CREATININE RATIO, UR INEon 07-07-2025 Albumin DL <= 20 mg/L (U) [Mass/Vol] mg/dL Normal [facility] Comment on above: Order Comment: Bhavik cason Type: BLOOD SPECIMEN Ordering Facility: [facility] Address: [address] [place] [address] Performed By: #### 2 4331-1, 3051-0, 38709-3, 7 #### [facility] CLIA [id number] [address] [place] [address] [place] Albumin/Creatinine (U) [Mass ratio] <20 Normal <30 [facility] Comment on above: Order Comment: Tatianai men Type: BLOOD SPECIMEN Ordering Facility: [facility] Address: [address] [place] [address] Result Comment: Adul t Male and Female Nephrotic Criteria: <30 mg/g is considered normal to mildly increased 30-300 mg/g is considered moderately increased >300 mg/g is considered severely increased KDIGO. (2013). KDIGO 2012 Clinical Practice Guideline for the Evaluation and Management of Chronic Kidney Disease. Official Journal of the International Society of Nephrology, 3(1), 1-150. Performed By: #### 2 4331-1, 305-0, 29015-1, 3024-03 #### [facility] CLIA [id number] [address] [place] [address] [place] Creatinine (U) [Mass/Vol] 60.2 mg/dL Normal 20.0-300.0 [facility] Comment on above: Order Comment: Tatianai men Type: BLOOD SPECIMEN Ordering Facility: [facility] Address: [address] [place] [address] Performed By: #### 2 4331-1, 3051-0, 23967-3, 7 #### [facility] CLIA [id number] [address] [place], [place] [id number] [place] CBC panel Auto (Bld)on 07-07 Erythrocyte distribution width (RBC) [Ratio] 13.9 % Normal 11.5-15.0 [facility] Comment on above: Order Comment: Speci men Type: BLOOD SPECIMEN Ordering Facility: [facility] Address: [address] [place] [address] Performed By: #### 5 8410-2 #### [facility] CLIA [id number] [address] [place] [address] [place] Hematocrit (Bld) [Volume fraction] 41.9 % Normal 39.0-51.0 [facility] Comment on above: Order Comment: Speci men Type: BLOOD SPECIMEN Ordering Facility: [facility] Address: [address] [place] [address] Performed By: #### 5 8410-2 #### [facility] CLIA [id number] [address] [place] [address] [place] Hemoglobin (Bld) [Mass/Vol] 13.8 g/dL Normal 13.0-17.0 [facility] Comment on above: Order Comment: Speci men Type: BLOOD SPECIMEN Ordering Facility: [facility] Address: [address] [place] [address] Performed By: #### 5 8410-2 #### [facility] CLIA [id number] [address] [place] [address] [place] MCH (RBC) [Entitic mass] 31.8 pg Normal 26.0-34.0 [facility] Comment on above: Order Comment: Speci men Type: BLOOD SPECIMEN Ordering Facility: [facility] Address: [address] [place] [address] Performed By: #### 5 8410-2 #### [facility] CLIA [id number] [address] [place] [address] [place] MCHC (RBC) [Mass/Vol] 32.9 g/dL Normal 30.5-36.0 [facility] Comment on above: Order Comment: Speci men Type: BLOOD SPECIMEN Ordering Facility: [facility] Address: [address] [place] [address] Performed By: #### 5 8410-2 #### [facility] CLIA [id number] [address] [place] [address] [place] MCV (RBC) [Entitic vol] 96.5 fL Normal 80.0-100.0 [facility] Comment on above: Order Comment: Speci men Type: BLOOD SPECIMEN Ordering Facility: [facility] Address: [address] [place] [address] Performed By: #### 5 8410-2 #### [facility] CLIA [id number] [address] [place] [address] [place] Nucleated RBC (Bld) [#/Vol] 10*3/uL Normal <0.01 [facility] Comment on above: Order Comment: Speci men Type: BLOOD SPECIMEN Ordering Facility: [facility] Address: [address] [place] [address] Performed By: #### 5 8410-2 #### [facility] CLIA [id number] [address] [place] [address] [place] Platelet mean volume (Bld) [Entitic vol] 11.1 fL Normal 9.0-12.7 [facility] Comment on above: Order Comment: Speci men Type: BLOOD SPECIMEN Ordering Facility: [facility] Address: [address] [place] [address] Performed By: #### 5 8410-2 #### [facility] CLIA [id number] [address] [place] [address] [place] Platelets (Bld) [#/Vol] 138 10*3/uL Low 150-400 [facility] Comment on above: Order Comment: Speci men Type: BLOOD SPECIMEN Ordering Facility: [facility] Address: [address] [place] [address] Performed By: #### 5 8410-2 #### [facility] CLIA [id number] [address] [place] [address] [place] RBC (Bld) [#/Vol] 4.34 10*6/uL Normal 4.20-6.00 [facility] Comment on above: Order Comment: Speci men Type: BLOOD SPECIMEN Ordering Facility: [facility] Address: [address] [place] [address] Performed By: #### 5 8410-2 #### [facility] CLIA [id number] [address] [place] [address] [place] WBC (Bld) [#/Vol] 5.15 10*3/uL Normal 3.70-11.00 [facility] Comment on above: Order Comment: Speci men Type: BLOOD SPECIMEN Ordering Facility: [facility] Address: [address] [place] [address] Performed By: #### 5 8410-2 #### [facility] CLIA [id number] [address] [place] [address] [place] Comprehensive metabolic 2000 panelon 07-07-2025 Albumin [Mass/Vol] 4.6 g/dL Normal 3.9-4.9 [facility] Comment on above: Order Comment: Speci men Type: BLOOD SPECIMEN Ordering Facility: [facility] Address: [address] [place] [address] Performed By: #### 2 4331-1, 3051-0, 39190-9, 3024-7 #### [facility] CLIA [id number] [address] [place] [address] [place] ALP [Catalytic activity/Vol] 77 U/L Normal 38-113 [facility] Comment on above: Order Comment: Speci men Type: BLOOD SPECIMEN Ordering Facility: [facility] Address: [address] [place] [address] Performed By: #### 2 4331-1, 3051-0, 22075-4, 3024-7 #### [facility] CLIA [id number] [address] [place] [address] [place] ALT [Catalytic activity/Vol] 31 U/L Normal 10-54 [facility] Comment on above: Order Comment: Speci men Type: BLOOD SPECIMEN Ordering Facility: [facility] Address: [address] [place] [address] Performed By: #### 2 4331-1, 3051-0, 02615-1, 3023-7 #### [facility] CLIA [id number] [address] [place] [address] [place] Anion gap [Moles/Vol] 7 mmol/L Low 8-15 [facility] Comment on above: Order Comment: Speci men Type: BLOOD SPECIMEN Ordering Facility: [facility] Address: [address] [place] [address] Performed By: #### 2 4331-1, 3051-0, 33390-0, 7 #### [facility] CLIA [id number] [address] [place] [address] [place] AST [Catalytic activity/Vol] 32 U/L Normal 14-40 [facility] Comment on above: Order Comment: Speci men Type: BLOOD SPECIMEN Ordering Facility: [facility] Address: [address] [place] [address] Performed By: #### 2 4331-1, 305-0, 21751-6, 7 #### [facility] CLIA [id number] [address] [place] [address] [place] Bilirubin [Mass/Vol] 0.6 mg/dL Normal 0.2-1.3 [facility] Comment on above: Order Comment: Speci men Type: BLOOD SPECIMEN Ordering Facility: [facility] Address: [address] [place] [address] Performed By: #### 2 4331-1, 305-0, 12466-6, 7 #### [facility] CLIA [id number] [address] [place] [address] [place] Calcium [Mass/Vol] 9.4 mg/dL Normal 8.5-10.2 [facility] Comment on above: Order Comment: Speci men Type: BLOOD SPECIMEN Ordering Facility: [facility] Address: [address] [place] [address] Performed By: #### 2 4331-1, 305-0, 03098-7, 3023-7 #### [facility] CLIA [id number] [address] [place] [address] [place] Chloride [Moles/Vol] 104 mmol/L Normal 98-107 [facility] Comment on above: Order Comment: Speci men Type: BLOOD SPECIMEN Ordering Facility: [facility] Address: [address] [place] [address] Performed By: #### 2 4331-1, 3051-0, 65053-5, 3023-7 #### [facility] CLIA [id number] [address] [place] [address] [place] CO2 [Moles/Vol] 26 mmol/L Normal 22-30 [facility] Comment on above: Order Comment: Speci men Type: BLOOD SPECIMEN Ordering Facility: [facility] Address: [address] [place] [address] Performed By: #### 2 4331-1, 3051-0, 99338-6, 7 #### [facility] CLIA [id number] [address] [place] [address] [place] Creatinine [Mass/Vol] 1.17 mg/dL Normal 0.73-1.22 [facility] Comment on above: Order Comment: Speci men Type: BLOOD SPECIMEN Ordering Facility: [facility] Address: [address] [place] [address] Performed By: #### 2 4331-1, 305-0, 50822-3, 7 #### [facility] CLIA [id number] [address] [place] [address] [place] eGFRcr SerPlBld CKD-EPI 2020 63 mL/min/1.73m??? Normal >=60 [facility] Comment on above: Order Comment: Speci men Type: BLOOD SPECIMEN Ordering Facility: [facility] Address: [address] [place] [address] Result Comment: Zo mated Glomerular Filtration Rate (eGFR) is calculated using the 2020 CKD-EPI creatinine equation. This equation utilizes serum creatinine, sex, and age as parameters. The creatinine assay has traceable calibration to isotope dilution-mass spectrometry. Refer to KDIGO guidelines for clinical interpretation. In patients with unstable renal function, e.g. those with acute kidney injury, the eGFR may not accurately reflect actual GFR. Performed By: #### 2 4331-1, 3051-0, 83718-9, 302-7 #### [facility] CLIA [id number] [address] [place] [address] [place] Glucose [Mass/Vol] 118 mg/dL High 74-99 [facility] Comment on above: Order Comment: Bhavik cason Type: BLOOD SPECIMEN Ordering Facility: [facility] Address: [address] [place] [address] Result Comment: The [place] [employer] (ADA) provides guidance for cutoff values for fasting glucose and random glucose. The ADA defines fasting as no caloric intake for at least 8 hours. Fasting plasma glucose results between 100 to 125 mg/dL indicate increased risk for diabetes (prediabetes). Fasting plasma glucose results greater than or equal to 126 mg/dL meet the criteria for diagnosis of diabetes. In the absence of unequivocal hyperglycemia, results should be confirmed by repeat testing. In a patient with classic symptoms of hyperglycemia or hyperglycemic crisis, random plasma glucose results greater than or equal to 200 mg/dL meet the criteria for diagnosis of diabetes. Reference: Standards of Medical Care in Diabetes 2016, [place] [employer]. Diabetes Care. 2016.39(Suppl 1). Performed By: #### 2 4331-1, 3051-0, 28359-8, 7 #### [facility] CLIA [id number] [address] [place] [address] [place] Potassium [Moles/Vol] 4.8 mmol/L Normal 3.7-5.1 [facility] Comment on above: Order Comment: Bhavik cason Type: BLOOD SPECIMEN Ordering Facility: [facility] Address: [address] [place] [address] Performed By: #### 2 4331-1, 3051-0, 85209-3, 302-7 #### [facility] CLIA [id number] [address] [place] [address] [place] Protein [Mass/Vol] 6.8 g/dL Normal 6.3-8.0 [facility] Comment on above: Order Comment: Speci men Type: BLOOD SPECIMEN Ordering Facility: [facility] Address: [address] [place] [address] Performed By: #### 2 4331-1, 3051-0, 67129-1, 3024-7 #### [facility] CLIA [id number] [address] [place] [address] [place] Sodium [Moles/Vol] 137 mmol/L Normal 136-144 [facility] Comment on above: Order Comment: Speci men Type: BLOOD SPECIMEN [facility] Address: [address] [place] [address] Performed By: #### 2 4331-1, 3051-0, 00300-5, 3024-7 #### [facility] CLIA [id number] [address] [place] [address] [place] Urea nitrogen [Mass/Vol] 18 mg/dL Normal 9-24 [facility] Comment on above: Order Comment: Speci men Type: BLOOD SPECIMEN Ordering Facility: [facility] Address: [address] [place] [address] Performed By: #### 2 4331-1, 3051-0, 47292-6, 3024-7 #### [facility] CLIA [id number] [address] [place] [address] [place] HbA1c (Bld)on 07-07-2025 Average glucose Estimated from glycated hemoglobin (Bld) [Mass/Vol] 146 mg/dL Normal [facility] Comment on above: Order Comment: Speci men Type: BLOOD SPECIMEN [facility]ing [facility]: [facility] Address: [address] [place] [address] Result Comment: eAG: (Estimated average glucose) is a calculated value from HgbA1c and is electronics parts sales representative of the average blood glucose level in the last 2-3 month period. Performed By: #### 5 8410-2 #### [facility] CLIA [id number] [address] [place] [address] [place] HbA1c (Bld) [Mass fraction] 6.7 % High 4.3-5.6 [facility] Comment on above: Order Comment: Bhavik cason Type: BLOOD SPECIMEN [facility] Address: [address] [place] [address] Result Comment: Amer ican Diabetes Association guidelines indicate that patients with HgbA1c in the range 5.7-6.4% are at increased risk for development of diabetes, and intervention by lifestyle modification may be beneficial. HgbA1c greater or equal to 6.5% is considered diagnostic of diabetes. Performed By: #### 5 8410-2 #### [facility] CLIA [id number] [address] [place] [address] STATES OF [facility] Lipid 1996 panelon 5 Cholesterol [Mass/Vol] 138 mg/dL Normal <200 [facility] Comment on above: Order Comment: Bhavik cason Type: BLOOD SPECIMEN [facility] Address: [address] [place] [address] Result Comment: <200 mg/dL, Desirable 200-239 mg/dL, Borderline high >239 mg/dL, High Performed By: #### 2 4331-1, 3051-0, 21903-9, 3024-7 #### [facility] CLIA [id number] [address] [place] [address] [place] Cholesterol in HDL [Mass/Vol] 38 mg/dL Low >39 [facility] Comment on above: Order Comment: Bhavik cason Type: BLOOD SPECIMEN [facility] Address: [address] [place] [address] Result Comment: 40-5 9 mg/dL, Acceptable >59 mg/dL, High: Negative risk factor for coronary heart disease <40 mg/dL, Low: Positive risk factor for coronary heart disease Performed By: #### 2 4331-1, 3051-0, 24945-3, 3024-7 #### [facility] CLIA [id number] [address] [place] [address] [place] Cholesterol in LDL [Mass/Vol] 75 mg/dL Normal <100 [facility] Comment on above: Order Comment: Bhavik cason Type: BLOOD SPECIMEN [facility] Address: [address] [place] [address] Result Comment: <100 mg/dL, Optimal 100-129 mg/dL, Near optimal/above optimal 130-159 mg/dL, Borderline high 160-189 mg/dL, High >189 mg/dL, Very high Secondary prevention optimal LDL Cholesterol levels are recommended to be <70 mg/dL LDL cholesterol is calculated using the Diaz-NIH equation. Performed By: #### 2 4331-1, 3051-0, 42435-8, 7 #### [facility] CLIA [id number] [address] [place] [address] OF [facility] Cholesterol in LDL/Cholesterol in HDL [Mass ratio] 1.97 {ratio} Normal <2.54 [facility] Comment on above: Order Comment: Bhavik cason Type: BLOOD SPECIMEN [facility] Address: [address] [place] [address] Result Comment: Refalexsandra alcantar: 1. National Cholesterol Education Program ATP III Guideline At-A-Glance Quick Desk Reference: National Heart, Lung, and Blood [place]. National Institutes of Health. 2001: NIH Publication No. 01-3305. 2. An International Atherosclerosis Society position paper: global recommendations for the management of dyslipidemia: executive summary, Atherosclerosis. 2014: 232(2):410-413. Performed By: #### 2 4331-1, 3051-0, 34055-8, 7 #### [facility] CLIA [id number] [facility] [address] [place] Cholesterol in VLDL [Mass/Vol] 22 mg/dL Normal <30 [facility] Comment on above: Order Comment: Bhavik cason Type: BLOOD SPECIMEN [facility]ing [facility] Address: [address] [place] [address] Performed By: #### 2 4331-1, 3051-0, 36272-0, 302-7 #### [facility] CLIA [id number] [address] [place] [address] [place] Cholesterol non HDL [Mass/Vol] 100 mg/dL Normal <130 [facility] Comment on above: Order Comment: Speci men Type: BLOOD SPECIMEN [facility] Address: [address] [place] [address] Result Comment: <130 mg/dL, Optimal 130-159 mg/dL, Near optimal/above optimal 160-189 mg/dL, Borderline high 190-219 mg/dL, High >219 mg/dL, Very high Secondary prevention optimal non HDL Cholesterol levels are recommended to be <100 mg/dL Performed By: #### 2 4331-1, 3051-0, 52242-7, 3024-7 #### [facility] CLIA [id number] [address] [place] [address] [place] Cholesterol.total/Choles terol in HDL [Mass ratio] 3.63 {ratio} Normal <5.10 [facility] Comment on above: Order Comment: Speci men Type: BLOOD SPECIMEN [facility] Address: [address] [place] [address] Performed By: #### 2 4331-1, 3051-0, 02854-8, 3023-7 #### [facility] CLIA [id number] [address] [place] [address] [place] FASTING TIME 13 hrs Normal [facility] Comment on above: Order Comment: Speci men Type: BLOOD SPECIMEN [facility] Address: [address] [place] [address] Performed By: #### 2 4331-1, 3051-0, 63641-7, 3024-7 #### [facility] CLIA [id number] [address] [place] [address] [place] Triglyceride [Mass/Vol] 143 mg/dL Normal <150 [facility] Comment on above: Order Comment: Speci men Type: BLOOD SPECIMEN [facility]ing [facility] Address: [address] [place] [address] Result Comment: <150 mg/dL, Normal 150-199 mg/dL, Borderline high 200-499 mg/dL, High >499 mg/dL, Very high Performed By: #### 2 4331-1, 3050-0, 21375-1, 3024-03 #### [facility] CLIA [id number] [address] [place] [address] [place] T3Free SerPl-mCncon 07-07-20 25 Free T3 [Mass/Vol] 3.0 pg/mL Normal 2.3-4.1 [facility] Comment on above: Order Comment: Speci men Type: BLOOD SPECIMEN [facility] Address: [address] [place] [address] Performed By: #### 2 4331-1, 3050-0, , 3024-03 #### [facility] CLIA [id number] [address] [place] [address] [place] T4 Free SerPl-mCncon 025 Free T4 [Mass/Vol] 1.5 ng/dL Normal 0.9-1.7 [facility] Comment on above: Order Comment: Speci men Type: BLOOD SPECIMEN [facility] Address: [address] [place] [address] Performed By: #### 2 4331-1, 3050-0, , 3024-03 #### [facility] CLIA [id number] [address] [place] [address] [place] TSH SerPl-aCncon 07-07-2025 TSH Qn 1.030 m[IU]/L Normal 0.270-4.200 [facility] Comment on above: Order Comment: Speci men Type: BLOOD SPECIMEN [facility] Address: [address] [place] [address] Performed By: #### 2 4331-1, 305-0, 07072-1, 3024-03 #### [facility] CLIA [id number] [address] [place] [address] [place] Radiation Oncology Visiton 0 06-01-2025 Radiation Oncology Visit [facility] [address] [place] [address] OFFICE VISIT Date of Service: 06/01/25857 MR#: [id number] Acct: [id number] Name: DEBO HULL Rep #: [id number] : 1945 From: Jim Ward DO Age/Sex: 80/M Location: [facility] [place] Status: Signed Intake Vital Signs 12/01/24 09:07 03/17/25 08:57 06/01/25 09:10 Height 5 ft 10 in 5 ft 10 in 5 ft 10 in Weight: 204 lb BMI 29.2 BP 113/66 Blood Pressure Location Rt brachial Position Sitting Respiration 18 Pulse 71 Pulse Source Monitor Temp 97.6 F L Temperature Source Temporal Artery Pulse Oximetry (%) 98 Oxygen Delivery Method room air Intake Is patient in pain?: No Allergies ipratropium (From Atrovent) Allergy (Severe, Verified 03/17/25 08:57) Other Medications ???Medication ???Instructions ???Recorded ???Confirmed ???Type bupropion HCl 150 mg 24 hr tablet, 150 mg PO QA mental health 02/0806/01/25 History extended release (Wellbutrin XL) albuterol sulfate 90 mcg/actuation 2 puff inhalation Q8H PRN wheezi ng 06/04/24 06/01/25 History aerosol inhaler levothyroxine 112 mcg tablet 112 mcg PO .qam thyroid 06/04/24 0 06/01/25 History aspirin 81 mg tablet,delayed 81 mg PO BREAKFAST #0 tabs 2 4 06/01/25 Rx release atorvastatin 40 mg tablet 40 mg PO QHS #30 tabs 06/06/24 Rx sildenafil 100 mg tablet 100 mg PO QDAY PRN ED 06/30/24 History cyanocobalamin (vitamin B-12) 500 500 mcg PO QDAY 03/17/25 06/01/25 History mcg tablet glipizide 2.5 mg tablet, extended 2.5 mg PO QDAY Diabetes 03/17/25 06/01/25 History release 24 hr Have you fallen in the past year?: No Central Venous Access Central Venous Access: No PFSH PFSH Medical History COVID Dehydration Tinnitus Anemia Dysuria Prerenal azotemia Thrombocytopenia Encounter for chemotherapy management Cancer Alcohol use Kidney stones Back pain Encounter for education 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 cancer Wears glasses Diabetes Arthritis Former smoker Asthma History of echocardiogram History of stress test Skin lesion Thyroid disease High blood cholesterol Home Medications ???Medication ???Instructions ???Recorded ???Last Taken ???Type bupropion HCl 150 mg 24 hr tablet, 150 mg PO QA mental health 02/0806/04/24 07:00 History extended release (Wellbutrin XL) albuterol sulfate 90 mcg/actuation 2 puff inhalation Q8H PRN wheezi ng 06/04/24 Unknown History aerosol inhaler levothyroxine 112 mcg tablet 112 mcg PO .qam thyroid 06/04/24 0 06/04/24 07:00 History aspirin 81 mg tablet,delayed 81 mg PO BREAKFAST #0 tabs 4 Unknown Rx release atorvastatin 40 mg tablet 40 mg PO QHS #30 tabs 06/06/24 Unk nown Rx sildenafil 100 mg tablet 100 mg PO QDAY PRN ED 06/30/24 Unk nown History cyanocobalamin (vitamin B-12) 500 500 mcg PO QDAY 03/17/25 Unknown History mcg tablet glipizide 2.5 mg tablet, extended 2.5 mg PO QDAY Diabetes 03/17/25 Unknown History release 24 hr Allergy/AdvReac Type Severity Reaction Status Date / Time ipratropium (From Atrovent) Allergy Severe Other Verified 03/17/25 08:57 Family History Mother Colon cancer Grandmother Colon cancer Grandfather CVA (cerebral vascular accident) Grandmother CVA (cerebral vascular accident) Surgical History S/P TURP (status post transurethral resection of prostate) History of transurethral resection of bladder tumor (TURBT) History of cystoscopy Hx of transurethral destruction of bladder lesion Hx of colonoscopy History of thyroidectomy Social History (Reviewed 06/01/25 @ 09:10 by Rosalind Hendrickson Smoking Status: Former smoker alcohol intake: never Diagnosis: Debo Hull is a 80-year-old male diagnosed with initially stage I (pT1 Nx Mx) low-grade invasive papillary urothelial carcinoma with areas of high-grade differentiation status post TURBT (06/2021), infusion of Mitomycin-C and BCG, repeat TURBT (08/2021), and now has disease recurrence with a solitary lymph node within the right groin status post CT abdomen/pelvis with contrast (11/29/2022), right groin lymph node core needle biopsy (12/05/2022), PET scan (12/18/2022), brain MRI with and without contrast (12/20/2022), cystoscopy (02/08/2023), TURP (04/18/2023), and 6 cycles of gem/cis (02/20/2023 ??? 06/11/2023). From 07/16/2023 ??? 08/20/2023 he received consolidation radiation therapy. History of Present Illness: 06/2021: Patient completed TURBT and pathology demonstrated grade 2 invasive papillary urothelial carcinoma.??? Tumor invades lamina (more content not included)... Normal [facility] CYSTOSCOPYon 04-02-2025 Bessy Garcia MD 04/02/2025 11:24 AM CYSTOSCOPY Date/Time: 04/02/2025 10:00 AM Performed by: Bessy Garcia MD Authorized by: Bessy Garcia MD The attending physician was present for the entire procedure. Pre-Procedure: Indications: bladder cancer (S/p TMT desiring cystoscopy for surveillance) Detailed information of all possible complications and side effects were discussed with the patient, these include but not only; UTI, sepsis, hematuria, incontinence, urethral injury and cardiovascular complications. Informed consent was obtained. Does this procedure require a [place] Protocol? Yes. [place] Protocol is required. Procedure: Procedure performed: cystoscopy The patient was placed supine with all pressure points well padded. Patient was prepped and draped in the usual sterile fashion with chlorhexidine. 10 mL of lidocaine 2% topical gel was inserted into urethra for local anesthesia. A penile clamp was not applied. The flexible cystoscope was lubricated and placed into the urethral tract under direct visualization. A 360 survey of the bladder was performed. The cystoscope was reflected and the bladder neck and the ureteral orifices were inspected. The findings are detailed below. The cystoscope was removed following any additional procedures documented below. Findings: The urinary meatus appeared normal. There was not a prominent median lobe. The lateral lobes were not obstructive in appearance. No tumors observed. No bladder fistula present. No foreign bodies observed. No stones found. Severe trabeculations were found. Both ureteral orifices were normal in size, shape and position with efflux of clear urine. The urethra was inspected. No foreign body(s) present in urethra. No urethral diverticulum observed. No urethral stricture found. Post Procedure: Patient tolerated procedure with no immediate complications EBL: no blood loss Procedure Comments: LUISANA. Stable cystoscopy. The patient expressed that this is likely the last cystoscopy for surveillance purposes that he will obtain but should he changes mind he was advised that he is free to return any time, he denied obstructive/irritative voiding symptoms and denied gross hematuria [facility] Radiology Study observation (narrative) [facility] Cardiology Visit Reporton Cardiology Visit Report [facility] [address] [place], [place] [address] OFFICE VISIT Date of Service: 03/17/25 MR#: [id number] Acct: [id number] Name: DEBO HULL Rep #: [id number] : 1945 Provider: Dr. See reyes MD Age/Sex: 79/M Location: [facility] [place] Status: Signed HPI HPI History of Present Illness Details: Patient is a very pleasant 79-year-old white male that comes in with his today for monitoring of his cardiovascular status. Patient reports he is doing well in his home environment he has played golf a couple of times this summer but he is very active in his home environment taking care of his property. He denies any chest pains denies any lightheaded dizzy spells denies any lower extremity edema. Back in May 2024 the patient had some stomach discomfort while playing golf he had some lightheadedness and visual changes and was brought to the emergency room by EMS. By the time he got there his symptoms had resolved his troponins were minimally elevated he had normal ECG on presentation and then flattening of the T waves on a delta ECG. He was cathed 06/05/2024 which demonstrated mild disease in the right coronary artery and mild ostial OM branch and ostial diagonal disease. He has been maintained on medical therapy since that point in time with no recurrence of the symptoms. Patient also has a history of an thoracic aorta measured at 3.9 cm at the aortic root. He has surveillance CT scans of the chest abdomen and pelvis due to bladder cancer every [address] February 2025 reported out the thoracic aorta as normal. No measurement was given. The patient's blood pressure is well-controlled at 117/74 in the office today. The patient reports that he is doing very well in his home environment and is very pleased with his activity levels overall. 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 Accompanied by: Is patient in pain?: No Allergies ipratropium (From Atrovent) Allergy (Severe, Verified 03/17/25 08:57) Other Medications ???Medication ???Instructions ???Recorded ???Confirmed ???Type bupropion HCl 150 mg 24 hr tablet, 150 mg PO [facility] mental health 02/0803/17/25 History extended release (Wellbutrin XL) albuterol sulfate 90 mcg/actuation 2 puff inhalation Q8H PRN wheezi ng 06/04/24 03/17/25 History aerosol inhaler levothyroxine 112 mcg tablet 112 mcg PO .count includes the [facility] thyroid 06/04/24 0 03/17/25 History aspirin 81 mg tablet,delayed 81 mg PO BREAKFAST #0 tabs 4 03/17/25 Rx release atorvastatin 40 mg tablet 40 mg PO QHS #30 tabs 06/06/2405/04 Rx sildenafil 100 mg tablet 100 mg PO QDAY PRN ED 06/30/2405/04 History cyanocobalamin (vitamin B-12) 500 500 mcg PO QDAY 03/17/25 03/17/25 History mcg tablet glipizide 2.5 mg tablet, extended 2.5 mg PO QDAY Diabetes 03/17/25 03/17/25 History release 24 hr Ejection fraction %: 60 Have you fallen in the past year?: No PFSH Medical History COVID Dehydration Tinnitus Anemia Dysuria Prerenal azotemia Thrombocytopenia Encounter for chemotherapy management Cancer Alcohol use Kidney stones Back pain Encounter for education 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 cancer Wears glasses Diabetes Arthritis Former smoker Asthma History of echocardiogram History of stress test Skin lesion Thyroid disease High blood cholesterol Surgical History S/P TURP (status post transurethral resection of prostate) History of transurethral resection of bladder tumor (TURBT) History of cystoscopy Hx of transurethral destruction of bladder lesion Hx of colonoscopy History of thyroidectomy Family History Mother Colon cancer Grandmother Colon cancer Grandfather CVA (cerebral vascular accident) Grandmother CVA (cerebral vascular accident) Social History Smoking Status: Former smoker alcohol intake: never ROS Const Const: Negative for fatigue, weakness, fever(s), headache(s), chills, frequent falls, weight gain or weight loss Eyes Eyes: Negative for blind spots, loss of peripheral vision, tra (more content not included)... Normal [facility] Surgery Visit Reporton 03-09 Surgery Visit Report [facility] [address] [place] [address] OFFICE VISIT Date of Service: 03/09/25 MR#: [id number] Acct: [id number] Name: DEBO HULL Rep #: [id number] : 1945 Provider: Dr. 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 Is patient in pain?: No Allergies ipratropium (From Atrovent) Allergy (Severe, Verified 03/09/25 09:17) Other Medications ???Medication ???Instructions ???Recorded ???Confirmed ???Type bupropion HCl 150 mg 24 hr tablet, 150 mg PO QAM mental health 02/0803/09/25 History extended release (Wellbutrin XL) albuterol sulfate 90 mcg/actuation 2 puff inhalation Q8H PRN wheezi ng 06/04/24 03/09/25 History aerosol inhaler levothyroxine 112 mcg tablet 112 mcg PO .qam thyroid 06/04/24 0 03/09/25 History aspirin 81 mg tablet,delayed 81 mg PO BREAKFAST #0 tabs 4 03/09/25 Rx release atorvastatin 40 mg tablet 40 mg PO QHS #30 tabs 06/06/24 Rx sildenafil 100 mg tablet 100 mg PO QDAY PRN ED 06/30/24 History glipizide 2.5 mg tablet, extended mg PO Diabetes 03/05/25 03/09/25 History release 24 hr Have you fallen in the past year?: No PFSH Medical History COVID Dehydration Tinnitus Anemia Dysuria Prerenal azotemia Thrombocytopenia Encounter for chemotherapy management Cancer Alcohol use Kidney stones Back pain Encounter for education 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 cancer Wears glasses Diabetes Arthritis Former smoker Asthma History of echocardiogram History of stress test Skin lesion Thyroid disease High blood cholesterol Surgical History S/P TURP (status post transurethral resection of prostate) History of transurethral resection of bladder tumor (TURBT) History of cystoscopy Hx of transurethral destruction of bladder lesion Hx of colonoscopy History of thyroidectomy Family History Mother Colon cancer Grandmother Colon cancer Grandfather CVA (cerebral vascular accident) Grandmother CVA (cerebral vascular accident) Social History Smoking Status: Former smoker alcohol intake: never HPI HPI HPI: The patient is an 79-year-old male who presents today to have a Mediport removed. He was treated for metastatic bladder cancer and received chemotherapy as well as radiation therapy. He presents today to have the port removed as he is no longer needing any further chemotherapy. Exam Const General: cooperative, healthy appearing and comfortable Office Procedures Port/Peg Provider Documentation Details:: After obtaining informed consent, the patient was placed in the supine position on the procedure room table. The right sided port was identified. The skin surrounding this port was prepped and draped in the usual sterile manner. Local anesthetic was infiltrated into the vicinity. Once sufficient time had elapsed to allow the local to become effective, the previous incision was then opened up using #15 blade. Dissection was carried down to the level of the port. At this point the surrounding capsule was then incised allowing the port to be flipped in a cephalad direction thus exposing the anchoring sutures. These 2 sutures were then excised. At this point the port was easily able to be removed without difficulty. Manual pressure was held in the area for several minutes. The incision was then closed using 3-0 Vicryl in a subdermal layer and then 4-0 Vicryl was used to close the skin. Skin glue was applied as dressing. He tolerated the procedure well. 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 Normal [facility] Oncology Visit Reporton 02-09 Oncology Visit Report [facility] [address] [place] [address] OFFICE VISIT Date of Service: 03/05/25 1330 MR#: [id number] Acct: [id number] Name: DEBO HULL Rep #: [id number] : 1945 From: Robby Benitez MD Age/Sex: 79/M Location: [facility] [place] Status: Signed HPI Subjective Date of Service 03/05/25 Chief Complaint metastatic urothelial carcinoma History of Present Illness 77-year-old gentleman with recurrent metastatic urothelial carcinoma. June 2021 TURBT: Invasive papillary urothelial carcinoma, low grade 2/3, tumor invades lamina propria and no lymphovascular invasion identified. Patient received intravesical Mitomycin-C and BCG. August 2021 TURBT: Papillary urothelial carcinoma low-grade 1/3 noninvasive. Patient was then placed on surveillance. November 2022 patient noted a left inguinal painless enlarged lymph node. November 29, 2022 CT abdomen and pelvis: IMPRESSION: Diffuse bladder wall thickening with prostatic enlargement and prostatic calcifications. There is evidence of indentation of the bladder base. Stable hepatic cysts. There is evidence of a 2.4 cm x 1.4 cm lymph node in the right inguinal region. Smaller lymph nodes are also seen in both inguinal regions more prominent on the right side. December 05, 2022 Right groin lymph node, core biopsy: Lymph node tissue with metastatic non-small cell carcinoma. See comment. IHC profile is compatible with clinical impression of urothelial primary. Focal squamous differentiation is also noted. Pathology was reviewed at [facility] for a second opinion and concurred with the urothelial origin. December 18, 2022 PET/CT initial staging: IMPRESSION: 1. ABNORMAL EXAMINATION INDICATIVE OF MALIGNANT-VIABLE NEOPLASM. 2. Increased radiopharmaceutical concentration defined in the right inguinal region fulfills quantitative criteria for neoplasia. 3. Enhanced tracer uptake noted in the region of the base of the prostate gland does not fulfill quantitative criteria for malignant transformation. December 20, 2022 brain MRI staging: IMPRESSION: 1.??? Moderate chronic changes of the brain, as described above. 2.??? There are no focal brain parenchymal lesions or abnormally enhancing lesions. No vasogenic edema or mass effect is seen. There is no abnormal thickening or enhancement of meninges or dura or skull. June 26, 2023 PET/CT restaging: IMPRESSION: 1. ABNORMAL EXAMINATION INDICATIVE OF MALIGNANT-VIABLE NEOPLASM. 2. Increased radiopharmaceutical concentration defined in the left mid abdominal mesentery fulfills quantitative criteria for malignant transformation. 3. There is interim resolution of the prior defined right inguinal hypermetabolic focus. 4. Overall, compared to the prior FDG PET CT study dated 12/18/22, there is current expressed viable neoplasm within the context of the left paramedian abdominal mesentery with interim resolution of the prior defined right inguinal hypermetabolic focus. June 29, 2023 CT scan of the abdomen and pelvis with oral and IV contrast: IMPRESSION: 1. Asymmetric wall thickening of the urinary bladder which will need further follow-up to differentiate cystitis from neoplasm. 2. Improving changes of mesenteric panniculitis. November 27, 2023 PET/CT: IMPRESSION: 1. ABNORMAL EXAMINATION INDICATIVE OF MALIGNANT-VIABLE NEOPLASM. 2. Increased radiopharmaceutical concentration redefined in the mid abdominal mesentery fulfills quantitative criteria for viable neoplasm. 3. Overall, compared to the prior FDG PET CT study dated 06/26/2023, there is continued demonstrated viable neoplasia within the context of the left mid abdominal mesentery, manifesting an interval quantitative partial metabolic response. February 20, 2024 CT abdomen and pelvis: IMPRESSION: Small lymph nodes are seen in the root of the mesentery. No masses seen. The previously seen area of increased markings has improved. The remainder of examination is unchanged. August 13, 2024 CT chest abdomen and pelvis: IMPRESSION: Stable examination. Diffuse bladder wall thickening and prostatic enlargement with central prostatic calcifications. February 16, 2025 CT chest abdomen and pelvis: IMPRESSION: Stable exam. Treatment summary and response: Cisplatin gemcitabine February 20, 2023-June 11, 2023 (6 cycles) CR TURP for obstructive symptoms April 18, 2023 07/16/2023 ??? 08/20/2023: received consolidative radiation therapy consisting of 4500 cGy delivered to the right inguinal lymph node region with a simultaneous integrated boost to 5500 cGy delivered to the concerning lymph nodes all in 25 fractions. He was treated using a VMAT technique using 6 MV photons. [facility] Medical History COVID Dehydration Tinnitus Anemia Dysuria Preren (more content not included)... Normal [facility] Absolute lymphocyte countOrd ered By: Robby Benitez on 02-16-2025 Lymphocytes Auto (Unsp spec) [#/Vol] 1.33 10*3/uL 0.83-4.51 [facility] Absolute neutrophil countOrd ered By: [facility] on 02-16-2025 Neutrophils (Bld) [#/Vol] 2.5 10*3/uL 2.0-7.7 [facility] Anion gap in Serum or Plasma Ordered By: Robby Benitez on 02-16-2025 Anion gap [Moles/Vol] 10 mmol/L 5-15 [facility] Automated blood erythrocyte countOrdered By: [facility] Ben[facility] on 02-16-2025 RBC (Bld) [#/Vol] 4.25 10*6/uL Low 4.6-6.2 [facility] Comment on above: Performed By: #### L 100.0100, L500.4050 ####[facility] [address] [place], [place], [id number] Automated blood hematocrit ( percentage)Ordered By: [facility] Benitez on 02-16-2025 Hematocrit (Bld) [Volume fraction] 40.3 % Normal 40-54 [facility] Comment on above: Performed By: #### L 100.0100, L500.4050 ####[facility] [address] [place], [address] Automated lymphocyte count a s percentage of total leukocytesOrdered By: Robby Benitez on 02-16-2025 Lymphocytes/100 WBC Auto (Unsp spec) 29.2 % 19-41 [facility] BUN/creatinine ratioOrdered By: [facility] on 02-16-2025 Urea nitrogen/Creatinine [Mass ratio] 12.9 mg/mg 10-20 [facility] Basophil percentageOrdered B y: Robby Benitez on 02-16-2025 Basophils/100 WBC (Bld) 1.1 % High 0-1 [facility] Comment on above: Performed By: #### L 100.0100, L500.4050 ####[facility] [address] [place], [address] Bilirubin, totalOrdered By: Robby Benitez on 02-16-2025 Bilirubin [Mass/Vol] 0.54 mg/dL Normal 0.00-1.30 [facility] Comment on above: Performed By: #### L 100.0100, L500.4050 ####[facility] [address] [place], [address] CBC W/Diff, Automatedon Absolute Lymph 1.33 X10 3/uL Normal 0.83-4.51 [facility] Comment on above: Performed By: #### L 100.0100, L500.4050 ####[facility] [address] [place], [address] Absolute Neut 2.5 X10 3/uL Normal 2.0-7.7 [facility] Comment on above: Performed By: #### L 100.0100, L500.4050 ####[facility] [address] [place], [address] IG% 0.400 Normal 0.0-0.9 [facility] Comment on above: Result Comment: IG% - Immature Granulocytes (promyelocytes, myelocytes and metamyelocytes) > 1% indicates that a LEFT SHIFT is Present. Performed By: #### L 100.0100, L500.4050 ####[facility] [address] [place], [address] Lymphocytes/100 WBC (Bld) 29.2 % Normal 19-41 [facility] Comment on above: Performed By: #### L 100.0100, L500.4050 ####[facility] [address] [place], [address] Nucleated RBC (Bld) [#/Vol] 0 10*3/uL Normal 0-5 [facility] Comment on above: Performed By: #### L 100.0100, L500.4050 ####[facility] [address] [place], [address] RDW SD 47.7 fl High 35.1-43.9 [facility] Comment on above: Performed By: #### L 100.0100, L500.4050 ####[facility] [address] [place], [address] CNPNon 02-16-2025 [facility] Telephone (INTMWS) DEBO HULL ([id number]) 1945 M Date Time Provider Department 02/16/25 MATTEO REBOLLAR INTMWS During your visit today, we recorded the following information about you: Darlyn Blank RN 02/16/2025 1:27 PM Signed Pharmacy calls and is questioning the albuterol prescription because it is requesting the [employer] manufacture. Pharmacy states that [employer] does not make inhaler. Pharmacy is cancelling this order. Called and spoke with patient's , Dipika. Dipika states that those directions can be taken off of prescription. Please send prescription back to [facility] without added manufacture directions. The patient has been identified by name and date of : Yes Caregiver verified no other encounters exist for this prescription request: Yes Caregiver confirmed with patient/requestor that no other refills are due, in the near future, with this provider at this time: Yes The last office visit in the department: 02/13/2025 Does the patient have a future office visit with this provider/department: Yes 08/19/2025 Requested Prescriptions Pending Prescriptions Disp Refills albuterol HFA (VENTOLIN HFA) 90 mcg/actuation inhaler 1 each 2 Sig: Inhale 2 puffs as instructed every 4 hours as needed for wheezing/shortness of breath. Darlyn Blank RN February 16, 2025 1:27 PM Allergies As of Date: 02/16/2025 Noted Allergy Reaction METFORMIN 09/16/2019 6 - Diarrhea 8 - GI Upset Comments: Tried 2 doses and had adverse effects each time IPRATROPIUM 08/07/2023 14 - Other: See Comments Comments: In albuterol inhaler Breathing difficulty SEASONAL ALLERGIES 06/18/2010 3 - Cough Comments: hayfever Date Reviewed: 02/13/2025 Reviewed by: Dixon Rosen APRN.COUNSEL - Fully Assessed Reason for Visit: Medication Problem [65] Order(s):albuterol HFA (VENTOLIN HFA) 90 mcg/actuation inhalerInhale 2 puffs as instructed every 4 hours as needed for wheezing/shortness of breath.Disp: 1 eachRfl: 2 Prescriptions as of 02/17/2025 - albuterol HFA (VENTOLIN HFA) 90 mcg/actuation inhaler Inhale 2 puffs as instructed every 4 hours as needed for wheezing/shortness of breath. - levothyroxine (SYNTHROID) 112 mcg tablet Take 1 tablet by mouth once daily. - buPROPion XL (WELLBUTRIN XL) 150 mg 24 hr tablet Take 1 tablet by mouth once daily. - atorvastatin (LIPITOR) 40 mg tablet Take 1 tablet by mouth once daily. - glipiZIDE 2.5 mg tablet Take 1 tablet by mouth daily before breakfast. As directed - sildenafil (VIAGRA) 100 mg tablet Take half to whole pill as directed prior to intercourse. - blood sugar diagnostic (TRUE METRIX GLUCOSE TEST STRIP) test strip 1 Strip once daily. Use as instructed - Lancets (ONETOUCH ULTRASOFT LANCETS) Test blood sugar(s) twice daily and as needed. Dx: Uncontrolled type 2 diabetes without complication E11.65. Insulin: no Problem List As Of Date 02/16/2025 Noted Resolved Pure hypercholesterolemia [E78.00] 02/13/2006 Impaired fasting glucose [R73.01] 03/24/2009 08/14/2017 Urinary retention [R33.9] 07/05/2011 06/11/2013 Benign prostatic hyperplasia without lower urin*07/05/2011 Urinary retention with incomplete bladder empty*08/21/2011 06/11/2013 Atypical nevus of abdominal wall [D22.5] 02/18/2012 Melanocytic nevi of trunk [D22.5] 02/18/2012 Seborrheic Keratoses [L82.1] 02/18/2012 Solar Lentigines [L81.4] 02/18/2012 Actinic skin damage [L57.8] 02/18/2012 Braun angioma [D18.01] 02/18/2012 Cutaneous skin tags [L91.8] 02/18/2012 Surgical Scars [L90.5] 02/18/2012 Depression [F32.A] 03/27/2012 Nontoxic uninodular goiter [E04.1] 04/10/2012 Follicular tumor of thyroid gland (uncertain if*04/16/2012 Atypical nevus [D22.9] 04/16/2012 06/11/2013 Multinodular goiter [E04.2] 05/21/2012 ED (erectile dysfunction) [N52.9] 02/10/2013 Hypothyroidism [E03.9] 06/17/2015 Cough variant asthma [J45.991] 12/10/2013 History of urinary retention [Z87.898] 05/21/2014 Elevated CK [R74.8] 01/10/2015 Obesity (BMI 30.0-34.9) [E66.811] 01/10/2015 09/16/2019 Acquired hypothyroidism [E03.9] 06/17/2015 Diabetes mellitus type 2, controlled, without c*02/04/2016 BPH loc w/o ur obs/LUTS [N40.0] 05/22/2016 Overweight (BMI 25.0-29.9) [E66.3] 09/16/2019 Thrombocytopenia (HCC) [D69.6] 10/24/2020 Mixed hyperlipidemia [E78.2] 10/24/2020 Malignant neoplasm metastatic to inguinal lymph*03/04/2023 Prescriptions ordered this encounter Disp Refills Start End ALBUTEROL SULFATE HFA 90 MCG/ACTUATI* 1 ea* 2 02/17/2025 Cmt: Generic or brand: dispense inhaler preferred by patient/insurance unless BECCA flag is selected. Route: INH Sig: Inhale 2 puffs as instructed every 4 hours as needed for wheezing/shortness of breath. Medications Discontinued During This Encounter Prescriptions - albuterol HFA (VENTOLIN HFA) 90 mcg/actuation inhaler (Discontinued) Inhale 2 puffs as instruc (more content not included)... Normal [facility]ATININE FINGERSTICKon Creatinine [Mass/Vol] 1.1 mg/dL Normal 0.70-1.30 [facility] Comment on above: Performed By: #### L 9100.0200 ####[facility] [address] [place], [address] EGFR WB > 60.0000 Normal >60 [facility] Comment on above: Performed By: #### L 9100.0200 ####[facility] [address] [place], [address] CT Chest, Abd, Pel w/Contras ton 02-16-2025 CT Chest, Abd, Pel w/Contrast [facility] [address] [place], [place] [address] CT Chest, Abd, Pel w/Contrast MR#: [id number] Acct: [id number] Name: DEBO HULL Rep #: [id number] : 1945 M 79 From: Mary adorno MD PCP: Dr. Matteo Rebollar MD Status: REG CLI Study: CT Chest, Abd, Pel w/Contrast Date of Exam: Exam# [id number] Ordering Dr: Robby Benitez MD PROCEDURE: CT CHEST, ABD, PEL W/CONTRAST 02/16/2025 REASON FOR EXAM: F/U METS UROTHELIAL CANCER IV CONTRAST ONLY TECHNIQUE: Chest, abdomen and pelvis CT with intravenous contrast. Coronal and Sagittal reconstruction series were provided. One or more dose reduction techniques were used (e.g., Automated exposure control, adjustment of the mA and/or kV according to patient size, use of iterative reconstruction technique. PATIENT PREPARATION: Per protocol ORAL CONTRAST TYPE: None. CONTRAST: Isovue 350. VOLUME: 100mL RADIATION DOSE SUMMARY: CTDlvol: 17.63 mGy DLP: 1500 mGycm COMPARISON: 08/13/2024. FINDINGS: A right-sided portacatheter is seen with the tip in the superior vena cava. Small fat-containing bilateral axillary lymph nodes, unchanged. Unchanged calcifications of the coronary arteries. Unchanged diffuse spondylosis. Unchanged hepatic steatosis. Unchanged 2 cm right renal simple cyst. Unchanged smaller hepatic cysts. Unchanged small sliding hiatal hernia. Unchanged atheromatous plaques of the aorta and its branches. Unchanged small bilateral fat containing inguinal hernias without incarceration. Unchanged diffuse spondylosis. Unchanged prostatomegaly. Unchanged scattered central prostatic calcifications. Unchanged mild diffuse thickening of the wall of the bladder. Normal enhancement of the main pulmonary artery and right and left pulmonary arteries. Normal enhancement of the bilateral peripheral pulmonary arteries. There is no demonstrated pulmonary embolism. Normal thoracic aorta and visualized great vessels. There is no demonstrated aortic dissection. Normal heart and pericardium. Normal mediastinum. Normal hilar regions. Normal visualized trachea and bronchi. The lungs are well expanded. Normal pulmonary parenchyma. Normal pleura. Normal gallbladder and extrahepatic biliary system. Normal spleen. Normal pancreas. Normal bilateral adrenal glands. Normal size of the right kidney. There is no right renal mass. There are no right renal calculi. There is no right hydronephrosis. Normal visualized right ureter. Normal size of the left kidney. There is no left renal mass. There are no left renal calculi. There is no left hydronephrosis. Normal visualized left ureter. Normal visualized stomach. Normal small intestine. Normal colon. The appendix is visualized and appears normal. There is no demonstrated peritoneal fluid. Normal inferior vena cava. Normal retroperitoneum. There is no pelvic mass lesion or lymphadenopathy. There is no pelvic fluid. CT/CT Chest, Abd, Pel w/Contrast IMPRESSION: Stable exam. Reading [facility] CC: Dr. Matteo Rebollar MD; Dr. Robby Benitez MD [employer] Clerk: Signed Normal [facility] Carbon dioxide, total [Moles /volume] in Central venous bloodOrdered By: Robby Benitez on 02-16-2025 CO2 [Moles/Vol] 23.3 mmol/L Normal 21.0-32.0 [facility] Comment on above: Performed By: #### L 100.0100, L500.4050 ####[facility] [address] [place], [address] Chloride assayOrdered By: Geovanna Benitez on 02-16-2025 Chloride [Moles/Vol] 104 mmol/L Normal 98-108 [facility] Comment on above: Performed By: #### L 100.0100, L500.4050 ####[facility] [address] [place], [address] Comprehensive Metabolic Prof ilon 02-16-2025 ALK PHOS 95 U/L Normal 40-129 [facility] Comment on above: Performed By: #### L 100.0100, L500.4050 ####[facility] [address] [place], [address] BUN/CRE 12.9 RATIO Normal 10-20 [facility] Comment on above: Performed By: #### L 100.0100, L500.4050 ####[facility] [address] [place], [address] ECRCL 56.26 ml/min Normal 50-250 [facility] Comment on above: Performed By: #### L 100.0100, L500.4050 ####[facility] [address] [place], [address] GAP 10 Normal 5-15 [facility] Comment on above: Performed By: #### L 100.0100, L500.4050 ####[facility] [address] [place], [address] Potassium [Moles/Vol] 4.3 mmol/L Normal 3.3-5.1 [facility] Comment on above: Performed By: #### L 100.0100, L500.4050 ####[facility] [address] [place], [address] T PROT 6.9 g/dL Normal 5.9-8.4 [facility] Comment on above: Performed By: #### L 100.0100, L500.4050 ####[facility] [address] [place], [address] Comprehensive Metabolic Prof ilOrdered By: Robby Benitez on 02-16-2025 AST [Catalytic activity/Vol] 26 U/L Normal <=37 [facility] Comment on above: Performed By: #### L 100.0100, L500.4050 ####[facility] [address] [place], [address] Creatinine measurement at dsideOrdered By: Robby Benitez on 02-16-2025 Creatinine [Mass/Vol] 1.1 mg/dL 0.70-1.30 [facility] EGFROrdered By: Robby danielle on 02-16-2025 GFR/1.73 sq M.predicted among non-blacks MDRD (S/P/Bld) [Vol rate/Area] mL/min/{1.73_m2} >60 [facility] Eosinophil percentageOrdered By: Robby Benitez on 02-16-2025 Eosinophils/100 WBC (Bld) 5.9 % High 0-5 [facility] Comment on above: Performed By: #### L 100.0100, L500.4050 ####[facility] [address] [place], [address] Erythrocyte distribution wid th ratioOrdered By: Robby Benitez on 02-16-2025 Erythrocyte distribution width (RBC) [Ratio] 13.7 % Normal 11.6-14.6 [facility] Comment on above: Performed By: #### L 100.0100, L500.4050 ####[facility] [address] [place], [address] Erythrocyte distribution wid th standard deviationOrdered By: Robby Benitez on 02-16-2025 Erythrocyte distribution width (RBC) [Ratio] 47.7 fl High 35.1-43.9 [facility] Glomerular filtration rate ( GFR) estimation/1.73 sq m using serum, plasma, or whole bOrdered By: Robby Benitez on 02-16-2025 GFR/1.73 sq M.predicted among non-blacks MDRD (S/P/Bld) [Vol rate/Area] 62 mL/min/{1.73_m2} Normal >60 [facility] Comment on above: mL/min/1.73m2 CKD-EP I Creatinine Equation (2020) Result Comment: mL/m in/1.73m2 CKD-EPI Creatinine Equation (2020) Performed By: #### L 100.0100, L500.4050 ####[facility] [address] [place], [address] Hemoglobin measurementOrdere d By: Robby Benitez on 02-16-2025 Hemoglobin (Bld) [Mass/Vol] 13.4 g/dL Normal 13.0-16.5 [facility] Comment on above: Performed By: #### L 100.0100, L500.4050 ####[facility] [address] [place], [place], [id number] Immature granulocytes/100 WB C Auto (Bld)Ordered By: Robby Benitez on 02-16-2025 Immature granulocytes/100 WBC (Bld) 0.400 % 0.0-0.9 [facility] Comment on above: IG% - Immature Granu locytes (promyelocytes, myelocytes and metamyelocytes) > 1% indicates that a LEFT SHIFT is Present. MCV (mean corpuscular volume ) determinationOrdered By: Robby Benitez on 02-16-2025 MCV (RBC) [Entitic vol] 94.8 fL High 80-94 [facility] Comment on above: Performed By: #### L 100.0100, L500.4050 ####[facility] [address] [place], [place], [id number] Mean corpuscular hemoglobin (MCH) determinationOrdered By: Robby Benitez on 02-16-2025 MCH (RBC) [Entitic mass] 31.5 pg Normal 27.0-32.0 [facility] Comment on above: Performed By: #### L 100.0100, L500.4050 ####[facility] [address] [place], [address] Mean corpuscular hemoglobin concentration (MCHC) determinationOrdered By: Robby Benitez on 02-16-2025 MCHC (RBC) [Mass/Vol] 33.3 g/dL Normal 32-36 [facility] Comment on above: Performed By: #### L 100.0100, L500.4050 ####[facility] [address] [place], [address] Mean platelet volume determi nationOrdered By: Robby Benitez on 02-16-2025 Platelet mean volume (Bld) [Entitic vol] 10.2 fL Normal 6.2-12.0 [facility] Comment on above: Performed By: #### L 100.0100, L500.4050 ####[facility] [address] [place], [address] Monocyte percentageOrdered B y: Robby Benitez on 02-16-2025 Monocytes/100 WBC (Bld) 8.8 % Normal 0-10 [facility] Comment on above: Performed By: #### L 100.0100, L500.4050 ####[facility] [address] [place], [address] Neutrophil percentageOrdered By: Robby Benitez on 02-16-2025 Neutrophils/100 WBC (Bld) 54.6 % Normal 47-70 [facility] Comment on above: Performed By: #### L 100.0100, L500.4050 ####[facility] [address] [place], [address] Nucleated red blood cell per centageOrdered By: Robby Benitez on 02-16-2025 Nucleated RBC/100 WBC (Bld) [Ratio] 0 % 0-5 [facility] Platelet countOrdered By: Geovanna Benitez on 02-16-2025 Platelets (Bld) [#/Vol] 122 10*3/uL Low 150-450 [facility] Comment on above: Performed By: #### L 100.0100, L500.4050 ####[facility] [address] [place], [address] Potassium measurement (mass/ volume)Ordered By: Robby Benitez on 02-16-2025 Potassium (Unsp spec) [Mass/Vol] 4.3 mmol/L 3.3-5.1 [facility] Serum creatinine measurement (mass/volume)Ordered By: Robby Benitez on 02-16-2025 Creatinine [Mass/Vol] 1.19 mg/dL Normal 0.70-1.20 [facility] Comment on above: Performed By: #### L 100.0100, L500.4050 ####[facility] [address] [place], [address] Serum globulin measurementOr dered By: Robby Benitez on 02-16-2025 Globulin (S) [Mass/Vol] 2.5 g/dL Normal 2.2-4.2 [facility] Comment on above: Performed By: #### L 100.0100, L500.4050 ####[facility] [address] [place], [address] Serum glucose measurement (m ass/volume)Ordered By: Robby Benitez on 02-16-2025 Glucose [Mass/Vol] 178 mg/dL High 70-99 [facility] Comment on above: Performed By: #### L 100.0100, L500.4050 ####[facility] [address] [place], [address] Serum or plasma alanine mueller otransferase (ALT) measurementOrdered By: Robby Benitez on 02-16-2025 ALT [Catalytic activity/Vol] 28 U/L Normal <=46 [facility] Company Comment on above: Performed By: #### L 100.0100, L500.4050 ####[facility] [address] [place], [address] Serum or plasma albumin valentine urement (mass/volume)Ordered By: Robby Benitez on 02-16-2025 Albumin [Mass/Vol] 4.4 g/dL Normal 3.4-4.8 [facility] Comment on above: Performed By: #### L 100.0100, L500.4050 ####[facility] [address] [place], [address] Serum or plasma albumin/glob ulin mass ratioOrdered By: Robby Benitez on 02-16-2025 Albumin/Globulin [Mass ratio] 1.7 {ratio} Normal 0.9-2.4 [facility] Comment on above: Performed By: #### L 100.0100, L500.4050 ####[facility] [address] [place], [address] Serum or plasma alkaline gayathir sphatase measurementOrdered By: Robby Benitez on 02-16-2025 ALP [Catalytic activity/Vol] 95 U/L 40-129 [facility] Serum or plasma calcium valentine urement (mass/volume)Ordered By: Robby Benitez on 02-16-2025 Calcium [Mass/Vol] 9.6 mg/dL Normal 7.6-11.0 [facility] Comment on above: Performed By: #### L 100.0100, L500.4050 ####[facility] [address] [place], [address] Serum or plasma urea nitroge n measurement (mass/volume)Ordered By: Robby Benitez on 02-16-2025 Urea nitrogen [Mass/Vol] 15 mg/dL Normal 4-19 [facility] Comment on above: Performed By: #### L 100.0100, L500.4050 ####[facility] [address] [place], [address] Sodium levelOrdered By: Ricardo Benitez on 02-16-2025 Sodium [Moles/Vol] 138 mmol/L Normal 133-145 [facility] Comment on above: Performed By: #### L 100.0100, L500.4050 ####[facility] [address] [place], [address] Total proteinOrdered By: Roddy Benitez on 02-16-2025 Protein [Mass/Vol] 6.9 g/dL 5.9-8.4 [facility] White blood cell (WBC) count Ordered By: Robby Eli on 02-16-2025 WBC (Bld) [#/Vol] 4.6 10*3/uL Normal 4.4-11.0 [facility] Comment on above: Performed By: #### L 100.0100, L500.4050 ####[facility] [address] [place], [address] CNOVon 02-13-2025 CNOV Office Visit (INTMWS ) DEBO HULL ([id number]) 1945 M Date Time Provider Department 02/13/25 7:20 AM DIXON ROSEN INTMWS During your visit today, we recorded the following information about you: Pulse Respiration Blood pressure Weight 76/minute 12/minute 120/68 91 kg Dixon Rosen APRN.COUNSEL 02/13/2025 8:11 AM Signed SUBJECTIVE Debo Hull is a 79 year old male here today for a check up on his medical problems. Chief Complaint Patient presents with: F/U 6 months HPI Manav Hull is a 79-year-old male with a history of stage IV cancer, presenting for follow-up on elevated A1c levels. Manav reports that his most recent A1c level was elevated. He has not been taking his glyburide, previously dosed at 5 mg BID, for approximately 2 years, discontinuing it around the time he began chemotherapy. He expresses willingness to restart the medication at a lower dose to manage his blood glucose levels. He also reports neuropathy in his feet, which he finds frustrating. He has been taking vitamin E as recommended by his radiation oncologist, but is uncertain if it has provided any benefit. The neuropathy affects his ability to carry items up and down the stairs in his three-story home, and he expresses concern about the risk of falling. He notes that he has to hold onto the railing when using the stairs and has stopped driving at night due to a lack of confidence in his abilities. Manav is scheduled for a CT scan next month and hopes that if the results are favorable, he will not need another scan for a year. 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 Had labs done, overall doing well with taking his medications. His medications were reviewed today and his list is now up to date. Medications Current Outpatient Medications Medication Sig sildenafil (VIAGRA) 100 mg tablet Take half to whole pill as directed prior to intercourse. albuterol HFA (VENTOLIN HFA) 90 mcg/actuation inhaler Inhale 2 puffs as instructed every 4 hours as needed for wheezing/shortness of breath. Patient requests Relion brand 60 puffs for $9 levothyroxine (SYNTHROID) 112 mcg tablet Take 1 tablet by mouth once daily. buPROPion XL (WELLBUTRIN XL) 150 mg 24 hr tablet Take 1 tablet by mouth once daily. atorvastatin (LIPITOR) 40 mg tablet Take 1 tablet by mouth once daily. glipiZIDE 2.5 mg tablet Take 1 tablet by mouth daily before breakfast. As directed blood sugar diagnostic (TRUE METRIX GLUCOSE TEST STRIP) test strip 1 Strip once daily. Use as instructed Lancets (ONETOUCH ULTRASOFT LANCETS) Test blood sugar(s) twice daily and as needed. Dx: Uncontrolled type 2 diabetes without complication E11.65. Insulin: no No current facility-administered medications for this visit. 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 Thrombocytopenia - 10/24/2020 Mixed Hyperlipidemia - 10/24/2020 Overweight (Bmi 25.0-29.9) - 09/16/2019 Bph Loc W/O Ur Obs/Luts - 05/22/2016 Diabetes Mellitus Type 2, Controlled, Without Complications (Hcc) - 02/04/2016 Acquired Hypothyroidism - 06/17/2015 Elevated Ck - 01/10/2015 History of Urinary Retention - 05/21/2014 Cough Variant Asthma (Hcc) - 12/10/2013 Ed (Erectile Dysfunction) - 02/10/2013 Multinodular Goiter - 05/21/2012 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) - 04/16/2012 Nontoxic Uninodular Goiter - 04/10/2012 Depression - 03/27/2012 Atypical Nevus of Abdominal Wall - 02/18/2012 Melanocytic Nevi of Trunk - 02/18/2012 Seborrheic Keratoses - 02/18/2012 Solar Lentigines - 02/18/2012 Actinic Skin Damage - 02/18/2012 Braun Angioma - 02/18/2012 Cutaneous Skin Tags - 02/18/2012 Surgical Scars - 02/18/2012 Benign Prostatic Hyperplasia Without Lower Urinary Tract Symptoms - 07/05/2011 Pure Hypercholesterolemia - 02/13/2006 Social History Tobacco Use Smoking status: Some Days Types: Cigars Passive exposure: Yes Smokeless tobacco: Never Tobacco comments: occasionally smoke a cigar Substance Use Topics Alcohol use: Yes Comment: 2 x weekly Drug use: No Review of Systems Constitutional: Negative. Respiratory: Negative. Cardiovascular: Negative. OBJECTIVE BP 120/68 Pulse 76 Resp 12 Wt 200 lb 9.9 oz (91.0kg) Physical Exam Vitals and nursing note reviewed. Constitutional: General: He is awake. He is not in acute distress. Appearance: Normal appearance. He is well-developed and well-groomed. He is not ill-a (more content not included)... Normal [facility] ALBUMIN/CREATININE RATIO, UR INEon 02-04-2025 Albumin DL <= 20 mg/L (U) [Mass/Vol] mg/dL Normal [facility] Comment on above: Order Comment: Speci men Type: BLOOD SPECIMEN Ordering Facility: [facility] Address: [address] [place], [place] [address] [address] Performed By: #### 2 4331-1, 3051-0, 61552-3, 3024-03 #### [facility] CLIA [id number] [address] [place] [address] [place] Albumin/Creatinine (U) [Mass ratio] <16 Normal <30 [facility] Comment on above: Order Comment: Speci men Type: BLOOD SPECIMEN Ordering Facility: [facility] Address: [address] [place] [address] Result Comment: Adul t Male and Female Nephrotic Criteria: <30 mg/g is considered normal to mildly increased 30-300 mg/g is considered moderately increased >300 mg/g is considered severely increased KDIGO. (2013). KDIGO 2012 Clinical Practice Guideline for the Evaluation and Management of Chronic Kidney Disease. Official Journal of the International Society of Nephrology, 3(1), 1-150. Performed By: #### 2 4331-1, 305-0, 53486-9, 3024-03 #### [facility] CLIA [id number] [address] [place] [address] [place] Creatinine (U) [Mass/Vol] 73.4 mg/dL Normal 20.0-300.0 [facility] Comment on above: Order Comment: Speci men Type: BLOOD SPECIMEN [facility]ing Facility: [facility] Address: [address] [place] [address] Performed By: #### 2 4331-1, 305-0, 97073-5, 3024-03 #### [facility] CLIA [id number] [address] [place] [address] [place] CBC panel Auto (Bld)on 02-04 Erythrocyte distribution width (RBC) [Ratio] 13.6 % Normal 11.5-15.0 [facility] Comment on above: Order Comment: Speci men Type: BLOOD SPECIMEN Ordering Facility: [facility] Address: [address] [place] [address] Performed By: #### 2 4331-1, 305-0, 77789-9, 3024-03 #### [facility] CLIA [id number] [address] [place] [address] [place] Hematocrit (Bld) [Volume fraction] 40.4 % Normal 39.0-51.0 [facility] Comment on above: Order Comment: Speci men Type: BLOOD SPECIMEN Ordering Facility: [facility] Address: [address] [place] [address] Performed By: #### 2 4331-1, 3051-0, 74949-3, 7 #### [facility] CLIA [id number] [address] [place] [address] [place] Hemoglobin (Bld) [Mass/Vol] 13.3 g/dL Normal 13.0-17.0 [facility] Comment on above: Order Comment: Speci men Type: BLOOD SPECIMEN [facility]ing [facility]: [facility] Address: [address] [place] [address] Performed By: #### 2 4331-1, 305-0, 27320-5, 7 #### [facility] CLIA [id number] [address] [place] [address] [place] MCH (RBC) [Entitic mass] 31.2 pg Normal 26.0-34.0 [facility] Comment on above: Order Comment: Speci men Type: BLOOD SPECIMEN Ordering [facility]: [facility] Address: [address] [place] [address] Performed By: #### 2 4331-1, 305-0, 99550-7, 7 #### [facility] CLIA [id number] [address] [place] [address] [place] MCHC (RBC) [Mass/Vol] 32.9 g/dL Normal 30.5-36.0 [facility] Comment on above: Order Comment: Speci men Type: BLOOD SPECIMEN Ordering [facility]: [facility] Address: [address] [place] [address] Performed By: #### 2 4331-1, 305-0, 91190-5, 302-7 #### [facility] CLIA [id number] [address] [place] [address] [place] MCV (RBC) [Entitic vol] 94.8 fL Normal 80.0-100.0 [facility] Comment on above: Order Comment: Speci men Type: BLOOD SPECIMEN [facility]ing [facility]: [facility] Address: [address] [place] [address] Performed By: #### 2 4331-1, 305-0, 13338-4, 7 #### [facility] CLIA [id number] [address] [place] [address] [place] Nucleated RBC (Bld) [#/Vol] 10*3/uL Normal <0.01 [facility] Comment on above: Order Comment: Speci men Type: BLOOD SPECIMEN Ordering Facility: [facility] Address: [address] [place] [address] Performed By: #### 2 4331-1, 3050-0, 70068-5, 7 #### [facility] CLIA [id number] [address] [place] [address] [place] Platelet mean volume (Bld) [Entitic vol] 10.7 fL Normal 9.0-12.7 [facility] Comment on above: Order Comment: Speci men Type: BLOOD SPECIMEN Ordering Facility: [facility] Address: [address] [place] [address] Performed By: #### 2 4331-1, 305-0, 61897-3, 7 #### [facility] CLIA [id number] [address] [place] [address] [place] Platelets (Bld) [#/Vol] 138 10*3/uL Low 150-400 [facility] Comment on above: Order Comment: Speci men Type: BLOOD SPECIMEN Ordering [facility]: [facility] Address: [address] [place] [address] Result Comment: No c lot detected. Performed By: #### 2 4331-1, 305-0, 23744-0, 3023-7 #### [facility] CLIA [id number] [address] [place] [address] [place] RBC (Bld) [#/Vol] 4.26 10*6/uL Normal 4.20-6.00 [facility] Comment on above: Order Comment: Speci men Type: BLOOD SPECIMEN [facility]ing [facility] Address: [address] [place] [address] Performed By: #### 2 4331-1, 3051-0, 66530-9, 3024-7 #### [facility] CLIA [id number] [address] [place] [address] [place] WBC (Bld) [#/Vol] 4.67 10*3/uL Normal 3.70-11.00 [facility] Comment on above: Order Comment: Speci men Type: BLOOD SPECIMEN [facility] Address: [address] [place] [address] Performed By: #### 2 4331-1, 3051-0, 26523-8, 3024-7 #### [facility] CLIA [id number] [address] [place] [address] [place] Comprehensive metabolic 2000 panelon 02-04-2025 Albumin [Mass/Vol] 4.4 g/dL Normal 3.9-4.9 [facility] Comment on above: Order Comment: Speci men Type: BLOOD SPECIMEN [facility]ing [facility] Address: [address] [place] [address] Performed By: #### 5 8410-2 #### [facility] CLIA [id number] [address] [place] [address] [place] ALP [Catalytic activity/Vol] 93 U/L Normal 38-113 [facility] Comment on above: Order Comment: Speci men Type: BLOOD SPECIMEN Ordering [facility]: [facility] Address: [address] [place] [address] Performed By: #### 5 8410-2 #### [facility] CLIA [id number] [address] [place] [address] [place] ALT [Catalytic activity/Vol] 26 U/L Normal 10-54 [facility] Comment on above: Order Comment: Speci men Type: BLOOD SPECIMEN [facility]ing [facility] Address: [address] [place] [address] Performed By: #### 5 8410-2 #### [facility] CLIA [id number] [address] [place] [address] [place] Anion gap [Moles/Vol] 12 mmol/L Normal 8-15 [facility] Comment on above: Order Comment: Speci men Type: BLOOD SPECIMEN [facility]ing [facility] Address: [address] [place] [address] Performed By: #### 5 8410-2 #### [facility] CLIA [id number] [address] [place] [address] [place] AST [Catalytic activity/Vol] 23 U/L Normal 14-40 [facility] Comment on above: Order Comment: Speci men Type: BLOOD SPECIMEN Ordering [facility]: [facility] Address: [address] [place] [address] Performed By: #### 5 8410-2 #### [facility] CLIA [id number] [address] [place] [address] [place] Bilirubin [Mass/Vol] 0.6 mg/dL Normal 0.2-1.3 [facility] Comment on above: Order Comment: Speci men Type: BLOOD SPECIMEN [facility]ing [facility]: [facility] Address: [address] [place] [address] Performed By: #### 5 8410-2 #### [facility] CLIA [id number] [address] [place] [address] [place] Calcium [Mass/Vol] 9.4 mg/dL Normal 8.5-10.2 [facility] Comment on above: Order Comment: Speci men Type: BLOOD SPECIMEN Ordering [facility]: [facility] Address: [address] [place] [address] Performed By: #### 5 8410-2 #### [facility] CLIA [id number] [address] [place] [address] [place] Chloride [Moles/Vol] 103 mmol/L Normal 98-107 [facility] Comment on above: Order Comment: Speci men Type: BLOOD SPECIMEN Ordering Facility: [facility] Address: [address] [place] [address] Performed By: #### 5 8410-2 #### [facility] CLIA [id number] [address] [place] [address] [place] CO2 [Moles/Vol] 22 mmol/L Normal 22-30 [facility] Comment on above: Order Comment: Speci men Type: BLOOD SPECIMEN Ordering Facility: [facility] Address: [address] [place] [address] Performed By: #### 5 8410-2 #### [facility] CLIA [id number] [address] [place] [address] [place] Creatinine [Mass/Vol] 1.15 mg/dL Normal 0.73-1.22 [facility] Comment on above: Order Comment: Speci men Type: BLOOD SPECIMEN Ordering [facility]: [facility] Address: [address] [place] [address] Performed By: #### 5 8410-2 #### [facility] CLIA [id number] [address] [place] [address] [place] Creatinine and Glomerular filtration rate.predicted panel (S/P/Bld) 64 mL/min/1.73m??? Normal >=60 [facility] Comment on above: Order Comment: Speci men Type: BLOOD SPECIMEN Ordering Facility: [facility] Address: [address] [place] [address] Result Comment: Zo mated Glomerular Filtration Rate (eGFR) is calculated using the 2020 CKD-EPI creatinine equation. This equation utilizes serum creatinine, sex, and age as parameters. The creatinine assay has traceable calibration to isotope dilution-mass spectrometry. Refer to KDIGO guidelines for clinical interpretation. In patients with unstable renal function, e.g. those with acute kidney injury, the eGFR may not accurately reflect actual GFR. Performed By: #### 5 8410-2 #### [facility] CLIA [id number] [address] [place] [address] [place] Glucose [Mass/Vol] 164 mg/dL High 74-99 [facility] Comment on above: Order Comment: Speci men Type: BLOOD SPECIMEN Ordering [facility]: [facility] Address: [address] [place] [address] Result Comment: The [place] Diabetes Association (ADA) provides guidance for cutoff values for fasting glucose and random glucose. The ADA defines fasting as no caloric intake for at least 8 hours. Fasting plasma glucose results between 100 to 125 mg/dL indicate increased risk for diabetes (prediabetes). Fasting plasma glucose results greater than or equal to 126 mg/dL meet the criteria for diagnosis of diabetes. In the absence of unequivocal hyperglycemia, results should be confirmed by repeat testing. In a patient with classic symptoms of hyperglycemia or hyperglycemic crisis, random plasma glucose results greater than or equal to 200 mg/dL meet the criteria for diagnosis of diabetes. Reference: Standards of Medical Care in Diabetes 2016, [place] Diabetes Association. Diabetes Care. 2016.39(Suppl 1). Performed By: #### 5 8410-2 #### [facility] CLIA [id number] [address] [place] [address] [place] Potassium [Moles/Vol] 4.6 mmol/L Normal 3.7-5.1 [facility] Comment on above: Order Comment: Speci men Type: BLOOD SPECIMEN Ordering [facility] Address: [address] [place] [address] Performed By: #### 5 8410-2 #### [facility] CLIA [id number] [address] [place] [address] [place] Protein [Mass/Vol] 6.8 g/dL Normal 6.3-8.0 [facility] Comment on above: Order Comment: Speci men Type: BLOOD SPECIMEN Ordering [facility]: [facility] Address: [address] [place] [address] Performed By: #### 5 8410-2 #### [facility] CLIA [id number] [address] [place] [address] [place] Sodium [Moles/Vol] 137 mmol/L Normal 136-144 [facility] Comment on above: Order Comment: Bhavik cason Type: BLOOD SPECIMEN Ordering Facility: [facility] Address: [address] [place] [address] Performed By: #### 5 8410-2 #### [facility] CLIA [id number] [address] [place] [address] [place] Urea nitrogen [Mass/Vol] 21 mg/dL Normal 9-24 [facility] Comment on above: Order Comment: Bhavik cason Type: BLOOD SPECIMEN Ordering Facility: [facility] Address: [address] [place] [address] Performed By: #### 5 8410-2 #### [facility] CLIA [id number] [address] [place] [address] [place] HbA1c (Bld)on 02-04-2025 Average glucose Estimated from glycated hemoglobin (Bld) [Mass/Vol] 183 mg/dL Normal [facility] Comment on above: Order Comment: Bhavik cason Type: BLOOD SPECIMEN Ordering [facility]: [facility] Address: [address] [place] [address] Result Comment: eAG: (Estimated average glucose) is a calculated value from HgbA1c and is electronics parts sales representative of the average blood glucose level in the last 2-3 month period. Performed By: #### 5 5454-3 #### [facility] CLIA [id number] [address] [place] [address] [place] HbA1c (Bld) [Mass fraction] 8.0 % High 4.3-5.6 [facility] Comment on above: Order Comment: Bhavik cason Type: BLOOD SPECIMEN [facility]ing [facility]: [facility] Address: [address] [place] [address] Result Comment: Amer [place] Diabetes Association guidelines indicate that patients with HgbA1c in the range 5.7-6.4% are at increased risk for development of diabetes, and intervention by lifestyle modification may be beneficial. HgbA1c greater or equal to 6.5% is considered diagnostic of diabetes. Performed By: #### 5 5454-3 #### [facility] CLIA [id number] [address] [place], [place] [address] [address] [place] Lipid 1996 panelon 5 Cholesterol [Mass/Vol] 128 mg/dL Normal <200 [facility] Comment on above: Order Comment: Bhavik cason Type: BLOOD SPECIMEN [facility] Address: [address] [place] [address] Result Comment: <200 mg/dL, Desirable 200-239 mg/dL, Borderline high >239 mg/dL, High Performed By: #### 5 8410-2 #### [facility] CLIA [id number] [address] [place] [address] OF [facility] Cholesterol in HDL [Mass/Vol] 38 mg/dL Low >39 [facility] Comment on above: Order Comment: Bhavik cason Type: BLOOD SPECIMEN [facility]ing [facility] Address: [address] [place] [address] Result Comment: 40-5 9 mg/dL, Acceptable >59 mg/dL, High: Negative risk factor for coronary heart disease <40 mg/dL, Low: Positive risk factor for coronary heart disease Performed By: #### 5 8410-2 #### [facility] CLIA [id number] [address] [place] [address] Cholesterol in LDL [Mass/Vol] 67 mg/dL Normal <100 [facility] Comment on above: Order Comment: Bhavik cason Type: BLOOD SPECIMEN [facility] Address: [address] [place] [address] Result Comment: <100 mg/dL, Optimal 100-129 mg/dL, Near optimal/above optimal 130-159 mg/dL, Borderline high 160-189 mg/dL, High >189 mg/dL, Very high Secondary prevention optimal LDL Cholesterol levels are recommended to be <70 mg/dL LDL cholesterol is calculated using the Diaz-NIH equation. Performed By: #### 5 8410-2 #### [facility] CLIA [id number] [address] [place] [address] Cholesterol in LDL/Cholesterol in HDL [Mass ratio] 1.76 {ratio} Normal <2.54 [facility] Comment on above: Order Comment: Bhavik cason Type: BLOOD SPECIMEN Ordering [facility]: [facility] Address: [address] [place] [address] Result Comment: Monisha alcantar: 1. National Cholesterol Education Program ATP III Guideline At-A-Glance Quick Desk Reference: National Heart, Lung, and Blood [place]. National Institutes of Health. 2001: NIH Publication No. 01-3305. 2. An International Atherosclerosis Society position paper: global recommendations for the management of dyslipidemia: executive summary, Atherosclerosis. 2014: 232(2):410-413. Performed By: #### 5 8410-2 #### [facility] CLIA [id number] [address] [place] [address] STATES [facility] Cholesterol in VLDL [Mass/Vol] 19 mg/dL Normal <30 [facility] Comment on above: Order Comment: Bhavik cason Type: BLOOD SPECIMEN [facility] Address: [address] [place] [address] Performed By: #### 5 8410-2 #### [facility] CLIA [id number] [address] [place] [address] [place] Cholesterol non HDL [Mass/Vol] 90 mg/dL Normal <130 [facility] Comment on above: Order Comment: Bhavik cason Type: BLOOD SPECIMEN Ordering Facility: [facility] Address: [address] [place] [address] Result Comment: <130 mg/dL, Optimal 130-159 mg/dL, Near optimal/above optimal 160-189 mg/dL, Borderline high 190-219 mg/dL, High >219 mg/dL, Very high Secondary prevention optimal non HDL Cholesterol levels are recommended to be <100 mg/dL Performed By: #### 5 8410-2 #### [facility] CLIA [id number] [address] [place] [address] [place] Cholesterol.total/Choles terol in HDL [Mass ratio] 3.37 {ratio} Normal <5.10 [facility] Comment on above: Order Comment: Speci men Type: BLOOD SPECIMEN Ordering Facility: [facility] Address: [address] [place] [address] Performed By: #### 5 8410-2 #### [facility] CLIA [id number] [address] [place] [address] [place] FASTING TIME 12 hrs Normal [facility] Comment on above: Order Comment: Speci men Type: BLOOD SPECIMEN Ordering [facility]: [facility] Address: [address] [place] [address] Performed By: #### 5 8410-2 #### [facility] CLIA [id number] [address] [place] [address] [place] Triglyceride [Mass/Vol] 131 mg/dL Normal <150 [facility] Comment on above: Order Comment: Speci men Type: BLOOD SPECIMEN Ordering [facility]: [facility] Address: [address] [place] [address] Result Comment: <150 mg/dL, Normal 150-199 mg/dL, Borderline high 200-499 mg/dL, High >499 mg/dL, Very high Performed By: #### 5 8410-2 #### [facility] CLIA [id number] [address] [place] [address] [place] T3Free SerPl-mCncon 02-05-20 25 Free T3 [Mass/Vol] 2.7 pg/mL Normal 2.3-4.1 [facility] Comment on above: Order Comment: Speci men Type: BLOOD SPECIMEN Order[facility] Address: [address] [place] [address] Performed By: #### 5 8410-2 #### [facility] CLIA [id number] [address] [place] [address] [place] T4 Free SerPl-mCncon 025 Free T4 [Mass/Vol] 1.5 ng/dL Normal 0.9-1.7 [facility] Comment on above: Order Comment: Speci men Type: BLOOD SPECIMEN Ordering [facility] Address: [address] [place] [address] Performed By: #### 5 8410-2 #### [facility] CLIA [id number] [address] [place] [address] [place] TSH SerPl-aCncon 02-04-2025 TSH Qn 1.200 m[IU]/L Normal 0.270-4.200 [facility] Comment on above: Order Comment: Speci men Type: BLOOD SPECIMEN [facility]ing [facility] Address: [address] [place] [address] Performed By: #### 2 4331-1, 3051-0, 21072-0, 3024-7 #### [facility] CLIA [id number] [address] [place] [address] [place] Radiation Oncology Visiton 0 12-01-2024 Radiation Oncology Visit [facility] [address] [place] [address]. [place] [address] OFFICE VISIT Date of Service: 12/01/24900 MR#: [id number] Acct: [id number] Name: DEBO HULL Sri Rep #: [id number] : 1945 From: Jim Ward DO Age/Sex: 79/M Location: [facility] Status: Signed Intake Vital Signs 06/02/24 08:57 08/25/24 14:00 12/01/24 09:07 Height 5 ft 10 in 5 ft 10 in 5 ft 10 in Weight: 201 lb 6 oz BMI 28.8 BP 108/73 Blood Pressure Location Rt brachial Position Sitting Respiration 18 Pulse 88 Pulse Source Monitor Temp 97.4 F L Temperature Source Temporal Artery Pulse Oximetry (%) 98 Oxygen Delivery Method room air Intake Visit Reasons: 6 MONTH F/U Accompanied by: Is patient in pain?: No Allergies ipratropium (From Atrovent) Allergy (Severe, Verified 12/01/24 09:06) Other Medications ???Medication ???Instructions ???Recorded ???Confirmed ???Type bupropion HCl 150 mg 24 hr tablet, 150 mg PO [facility] 02/0812/01/24 History extended release (Wellbutrin XL) albuterol sulfate 90 mcg/actuation 2 puff inhalation Q8H PRN wheezi ng 06/04/24 12/01/24 History aerosol inhaler levothyroxine 112 mcg tablet 112 mcg PO .qam thyroid 06/04/24 0 12/01/24 History aspirin 81 mg tablet,delayed 81 mg PO BREAKFAST #0 tabs 4 12/01/24 Rx release atorvastatin 40 mg tablet 40 mg PO QHS #30 tabs 06/06/24 Rx sildenafil 100 mg tablet 100 mg PO QDAY PRN 06/30/24 History Have you fallen in the past year?: No PFSH PFSH Medical History COVID Dehydration Tinnitus Anemia Dysuria Prerenal azotemia Thrombocytopenia Encounter for chemotherapy management Cancer Alcohol use Kidney stones Back pain Encounter for education 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 cancer Wears glasses Diabetes Arthritis Former smoker Asthma History of echocardiogram History of stress test Skin lesion Thyroid disease High blood cholesterol Home Medications ???Medication ???Instructions ???Recorded ???Last Taken ???Type bupropion HCl 150 mg 24 hr tablet, 150 mg PO [facility] 02/0806/04/24 07:00 History extended release (Wellbutrin XL) albuterol sulfate 90 mcg/actuation 2 puff inhalation Q8H PRN wheezi ng 06/04/24 Unknown History aerosol inhaler levothyroxine 112 mcg tablet 112 mcg PO .qa thyroid 06/04/24 0 06/04/24 07:00 History aspirin 81 mg tablet,delayed 81 mg PO BREAKFAST #0 tabs 4 Unknown Rx release atorvastatin 40 mg tablet 40 mg PO QHS #30 tabs 06/06/24 Unk nown Rx sildenafil 100 mg tablet 100 mg PO QDAY PRN 06/30/24 Unknow n History Allergy/AdvReac Type Severity Reaction Status Date / Time ipratropium (From Atrovent) Allergy Severe Other Verified 12/01/24 09:06 Family History Mother Colon cancer Grandmother Colon cancer Grandfather CVA (cerebral vascular accident) Grandmother CVA (cerebral vascular accident) Surgical History S/P TURP (status post transurethral resection of prostate) History of transurethral resection of bladder tumor (TURBT) History of cystoscopy Hx of transurethral destruction of bladder lesion Hx of colonoscopy History of thyroidectomy Social History Smoking Status: Former smoker alcohol intake: never Diagnosis: Debo Hull is a 79-year-old male diagnosed with initially stage I (pT1 Nx Mx) low-grade invasive papillary urothelial carcinoma with areas of high-grade differentiation status post TURBT (06/2021), infusion of Mitomycin-C and BCG, repeat TURBT (08/2021), and now has disease recurrence with a solitary lymph node within the right groin status post CT abdomen/pelvis with contrast (11/29/2022), right groin lymph node core needle biopsy (12/05/2022), PET scan (12/18/2022), brain MRI with and without contrast (12/20/2022), cystoscopy (02/08/2023), TURP (04/18/2023), and 6 cycles of gem/cis (02/20/2023 ??? 06/11/2023). From 07/16/2023 ??? 08/20/2023 he received consolidation radiation therapy. History of Present Illness: 06/2021: Patient completed TURBT and pathology demonstrated grade 2 invasive papillary urothelial carcinoma.??? Tumor invades lamina propria and no lymph-vascular invasion is identified, no muscularis invasion.??? Tumor shows areas of high grade when [facility] path reviewed.??? Patient received intravesicular Mitomycin-C and BCG.??? 08/2021: TURBT was performed.??? This demonstrated evidence for grade 1 papillary urothelial carcinoma which was noninvasive and the patient has been placed on surveillance. November 2022: Patient notic (more content not included)... Normal [facility] CNOVon 11-19-2024 CNOV Office Visit (INTMWS ) DEBO HULL ([id number]) 1945 M Date Time Provider Department 11/19/24 8:00 AM DIXON ROSEN During your visit today, we recorded the following information about you: Pulse Blood pressure Weight 70/minute 105/66 93.2 kg Dixon Rosen APRN.COUNSEL 11/19/2024 8:24 AM Signed SUBJECTIVE Debo Hull is a 79 year old male here today for a check up on his medical problems. Chief Complaint Patient presents with: Medication Follow-up HPI Manav Hull is an 79-year-old male, with a history of cancer, DM, and hypothyroidism, presenting for evaluation of adverse effects from sertraline, including constipation and significant sexual dysfunction. Manav reports experiencing adverse effects from sertraline, including constipation and significant sexual dysfunction. He describes a marked decrease in libido, difficulty maintaining erections, and an absence of orgasms, which he finds devastating. These issues persist despite the use of Viagra. He has been taking sertraline for an extended period and, after researching its side effects, believes it is the cause of his sexual dysfunction. He expresses a desire to discontinue sertraline but is concerned about potential withdrawal symptoms. His , an RN, advised him to consult with his healthcare provider before making any changes. Mood-thompson, Manav reports feeling pretty good and describes his grumpiness as manageable. He attributes some irritability to the aches and pains of aging and expresses gratitude for his long life. He acknowledges occasional irritability towards his , who has been supportive throughout his cancer treatments, and expresses regret for these moments. Manav has completed his cancer treatments and is currently undergoing monitoring with CT scans every 6 months. He mentions a recent cardiac episode in the fall, which resulted in a brief hospitalization at [place]. The attending physician attributed the episode to dehydration and confirmed that no cardiac damage occurred. He denies experiencing any chest pain or tightness since then. Manav also manages DM, with his last HbA1c recorded at 7.4% in June. He monitors his blood glucose levels every other day and reports stable readings. He is also on medication for hypothyroidism, which he states is well-controlled. He reports no issues with his neuropathy with today's visit. His medications were reviewed today and his list is now up to date. Medications Current Outpatient Medications Medication Sig levothyroxine (SYNTHROID) 112 mcg tablet Take 1 tablet by mouth once daily. atorvastatin (LIPITOR) 40 mg tablet Take 1 tablet by mouth once daily. buPROPion XL (WELLBUTRIN XL) 150 mg 24 hr tablet Take 1 tablet by mouth once daily. albuterol HFA (VENTOLIN HFA) 90 mcg/actuation inhaler Inhale 2 Puffs as instructed every 4 hours as needed for wheezing/shortness of breath. Patient requests Relion brand 60 puffs for $9 sildenafil (VIAGRA) 100 mg tablet Take half to whole pill as directed prior to intercourse. blood sugar diagnostic (TRUE METRIX GLUCOSE TEST STRIP) test strip 1 Strip once daily. Use as instructed Lancets (AlumniFunderTOUCH ULTRASOFT LANCETS) Test blood sugar(s) twice daily and as needed. Dx: Uncontrolled type 2 diabetes without complication E11.65. Insulin: no glipiZIDE (GLUCOTROL) 5 mg tablet Take 1 tablet by mouth twice daily before meals. As directed (Patient taking differently: Take 5 mg by mouth two times a day before meals. Taking as needed.) No current facility-administered medications for this visit. 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 Thrombocytopenia (Hcc) - 10/24/2020 Mixed Hyperlipidemia - 10/24/2020 Overweight (Bmi 25.0-29.9) - 09/16/2019 Bph Loc W/O Ur Obs/Luts - 05/22/2016 Diabetes Mellitus Type 2, Controlled, Without Complications ([facility]) - 02/04/2016 Acquired Hypothyroidism - 06/17/2015 Elevated Ck - 01/10/2015 History of Urinary Retention - 05/21/2014 Cough Variant Asthma - 12/10/2013 Ed (Erectile Dysfunction) - 02/10/2013 Multinodular Goiter - 05/21/2012 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 Normal [facility] ALBUMIN/CREATININE RATIO, UR INEon 08-25-2024 Albumin DL <= 20 mg/L (U) [Mass/Vol] mg/dL Normal [facility] Comment on above: Order Comment: Speci men Type: BLOOD SPECIMEN Ordering Facility[facility] Address: [address] [place] [address] Performed By: #### 2 4331-1, 3051-0, 28582-5, 3024-7 #### [facility] CLIA [id number] [address] [place] [address] [place] Albumin/Creatinine (U) [Mass ratio] <8 Normal <30 [facility] Comment on above: Order Comment: Speci men Type: BLOOD SPECIMEN Ordering Facility: [facility] Address: [address] [place] [address] Result Comment: Adul t Male and Female Nephrotic Criteria: <30 mg/g is considered normal to mildly increased 30-300 mg/g is considered moderately increased >300 mg/g is considered severely increased KDIGO. (2013). KDIGO 2012 Clinical Practice Guideline for the Evaluation and Management of Chronic Kidney Disease. Official Journal of the International Society of Nephrology, 3(1), 1-150. Performed By: #### 2 4331-1, 3051-0, 81006-9, 3024-7 #### [facility] CLIA [id number] [address] [place], [place] [id number] [place] Creatinine (U) [Mass/Vol] 145.8 mg/dL Normal 20.0-300.0 [facility] Comment on above: Order Comment: Speci men Type: BLOOD SPECIMEN [facility]ing [facility]: [facility] Address: [address] [place] [address] Performed By: #### 2 4331-1, 3051-0, 84216-4, 3024-7 #### [facility] CLIA [id number] [address] [place] [address] [place] Oncology Visit Reporton 08-10 Oncology Visit Report [facility] [address] [place] [address] OFFICE VISIT Date of Service: 08/25/24 1356 MR#: [id number] Acct: [id number] Name: DEBO HULL Rep #: [id number] : 1945 From: Robby Benitez MD Age/Sex: 79/M Location: [facility] Status: Signed HPI Subjective Date of Service 08/25/24 Chief Complaint metastatic urothelial carcinoma History of Present Illness 77-year-old gentleman with recurrent metastatic urothelial carcinoma. June 2021 TURBT: Invasive papillary urothelial carcinoma, low grade 2/3, tumor invades lamina propria and no lymphovascular invasion identified. Patient received intravesical Mitomycin-C and BCG. August 2021 TURBT: Papillary urothelial carcinoma low-grade 1/3 noninvasive. Patient was then placed on surveillance. November 2022 patient noted a left inguinal painless enlarged lymph node. November 29, 2022 CT abdomen and pelvis: IMPRESSION: Diffuse bladder wall thickening with prostatic enlargement and prostatic calcifications. There is evidence of indentation of the bladder base. Stable hepatic cysts. There is evidence of a 2.4 cm x 1.4 cm lymph node in the right inguinal region. Smaller lymph nodes are also seen in both inguinal regions more prominent on the right side. December 05, 2022 Right groin lymph node, core biopsy: Lymph node tissue with metastatic non-small cell carcinoma. See comment. IHC profile is compatible with clinical impression of urothelial primary. Focal squamous differentiation is also noted. Pathology was reviewed at [facility] for a second opinion and concurred with the urothelial origin. December 18, 2022 PET/CT initial staging: IMPRESSION: 1. ABNORMAL EXAMINATION INDICATIVE OF MALIGNANT-VIABLE NEOPLASM. 2. Increased radiopharmaceutical concentration defined in the right inguinal region fulfills quantitative criteria for neoplasia. 3. Enhanced tracer uptake noted in the region of the base of the prostate gland does not fulfill quantitative criteria for malignant transformation. December 20, 2022 brain MRI staging: IMPRESSION: 1.??? Moderate chronic changes of the brain, as described above. 2.??? There are no focal brain parenchymal lesions or abnormally enhancing lesions. No vasogenic edema or mass effect is seen. There is no abnormal thickening or enhancement of meninges or dura or skull. June 26, 2023 PET/CT restaging: IMPRESSION: 1. ABNORMAL EXAMINATION INDICATIVE OF MALIGNANT-VIABLE NEOPLASM. 2. Increased radiopharmaceutical concentration defined in the left mid abdominal mesentery fulfills quantitative criteria for malignant transformation. 3. There is interim resolution of the prior defined right inguinal hypermetabolic focus. 4. Overall, compared to the prior FDG PET CT study dated 12/18/22, there is current expressed viable neoplasm within the context of the left paramedian abdominal mesentery with interim resolution of the prior defined right inguinal hypermetabolic focus. June 29, 2023 CT scan of the abdomen and pelvis with oral and IV contrast: IMPRESSION: 1. Asymmetric wall thickening of the urinary bladder which will need further follow-up to differentiate cystitis from neoplasm. 2. Improving changes of mesenteric panniculitis. November 27, 2023 PET/CT: IMPRESSION: 1. ABNORMAL EXAMINATION INDICATIVE OF MALIGNANT-VIABLE NEOPLASM. 2. Increased radiopharmaceutical concentration redefined in the mid abdominal mesentery fulfills quantitative criteria for viable neoplasm. 3. Overall, compared to the prior FDG PET CT study dated 06/26/2023, there is continued demonstrated viable neoplasia within the context of the left mid abdominal mesentery, manifesting an interval quantitative partial metabolic response. February 20, 2024 CT abdomen and pelvis: IMPRESSION: Small lymph nodes are seen in the root of the mesentery. No masses seen. The previously seen area of increased markings has improved. The remainder of examination is unchanged. August 13, 2024 CT chest abdomen and pelvis: IMPRESSION: Stable examination. Diffuse bladder wall thickening and prostatic enlargement with central prostatic calcifications. Treatment summary and response: Cisplatin gemcitabine February 20, 2023-June 11, 2023 (6 cycles) CR TURP for obstructive symptoms April 18, 2023 07/16/2023 ??? 08/20/2023: received consolidative radiation therapy consisting of 4500 cGy delivered to the right inguinal lymph node region with a simultaneous integrated boost to 5500 cGy delivered to the concerning lymph nodes all in 25 fractions. He was treated using a VMAT technique using 6 MV photons. [facility] Medical History COVID Dehydration Tinnitus Anemia Dysuria Prerenal azotemia Thrombocytopenia Encounter for chemotherapy management Cancer (more content not included)... Normal [facility] CBC W/Diff, Automatedon 12-0 Absolute Lymph 1.46 X10 3/uL Normal 0.83-4.51 [facility] Comment on above: Performed By: #### L 100.0100, L500.4050 ####[facility] [address] [place], [address] Absolute Neut 2.9 X10 3/uL Normal 2.0-7.7 [facility] Comment on above: Performed By: #### L 100.0100, L500.4050 ####[facility] [address] [place], [address] Basophils/100 WBC (Bld) 1.2 % High 0-1 [facility] Comment on above: Performed By: #### L 100.0100, L500.4050 ####[facility] [address] [place], [address] Eosinophils/100 WBC (Bld) 5.8 % High 0-5 [facility] Comment on above: Performed By: #### L 100.0100, L500.4050 ####[facility] [address] [place], [address] Erythrocyte distribution width (RBC) [Ratio] 13.6 % Normal 11.6-14.6 [facility] Comment on above: Performed By: #### L 100.0100, L500.4050 ####[facility] [address] [place], [address] Hematocrit (Bld) [Volume fraction] 38.2 % Low 40-54 [facility] Comment on above: Performed By: #### L 100.0100, L500.4050 ####[facility] [address] [place], [address] Hemoglobin (Bld) [Mass/Vol] 12.6 g/dL Low 13.0-16.5 [facility] Comment on above: Performed By: #### L 100.0100, L500.4050 ####[facility] [address] [place], [address] IG% 0.200 Normal 0.0-0.9 [facility] Comment on above: Result Comment: IG% - Immature Granulocytes (promyelocytes, myelocytes and metamyelocytes) > 1% indicates that a LEFT SHIFT is Present. Performed By: #### L 100.0100, L500.4050 ####[facility] [address] [place], [address] Lymphocytes/100 WBC (Bld) 28.1 % Normal 19-41 [facility] Comment on above: Performed By: #### L 100.0100, L500.4050 ####[facility] [address] [place], [address] MCH (RBC) [Entitic mass] 32.1 pg High 27.0-32.0 [facility] Comment on above: Performed By: #### L 100.0100, L500.4050 ####[facility] [address] [place], [address] MCHC (RBC) [Mass/Vol] 33.0 g/dL Normal 32-36 [facility] Comment on above: Performed By: #### L 100.0100, L500.4050 ####[facility] [address] [place], [address] MCV (RBC) [Entitic vol] 97.4 fL High 80-94 [facility] Comment on above: Performed By: #### L 100.0100, L500.4050 ####[facility] [address] [place], [address] Monocytes/100 WBC (Bld) 9.8 % Normal 0-10 [facility] Comment on above: Performed By: #### L 100.0100, L500.4050 ####[facility] [address] [place], [address] Neutrophils/100 WBC (Bld) 54.9 % Normal 47-70 [facility] Comment on above: Performed By: #### L 100.0100, L500.4050 ####[facility] [address] [place], [address] Nucleated RBC (Bld) [#/Vol] 0 10*3/uL Normal 0-5 [facility] Comment on above: Performed By: #### L 100.0100, L500.4050 ####[facility] [address] [place], [address] Platelet mean volume (Bld) [Entitic vol] 10.8 fL Normal 6.2-12.0 [facility] Comment on above: Performed By: #### L 100.0100, L500.4050 ####[facility] [address] [place], [address] Platelets (Bld) [#/Vol] 117 10*3/uL Low 150-450 [facility] Comment on above: Performed By: #### L 100.0100, L500.4050 ####[facility] [address] [place], [address] RBC (Bld) [#/Vol] 3.92 10*6/uL Low 4.6-6.2 [facility] Comment on above: Performed By: #### L 100.0100, L500.4050 ####[facility] [address] [place], [address] RDW SD 49.1 fl High 35.1-43.9 [facility] Comment on above: Performed By: #### L 100.0100, L500.4050 ####[facility] [address] [place], [address] WBC (Bld) [#/Vol] 5.2 10*3/uL Normal 4.4-11.0 [facility] Comment on above: Performed By: #### L 100.0100, L500.4050 ####[facility] [address] [place], [address] CT Chest, Abd, Pel w/Contras ton 08-13-2024 CT Chest, Abd, Pel w/Contrast [facility] [address] [place] [address] CT Chest, Abd, Pel w/Contrast MR#: [id number] Acct: [id number] Name: DEBO HULL Rep #: [id number] : 1945 M 79 From: Yovani hurtado MD PCP: Dr. Matteo Rebollar MD Status: [facility] Study: CT Chest, Abd, Pel w/Contrast Date of Exam: Exam# [id number] Ordering Dr: Robby Benitez [place] [id number] STUDY: CT CHEST, ABDOMEN T PELVIS WITH CONTRAST REASON FOR EXAM: Male, 79 years old. 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 Multiplanar coronal and sagittal images were reformatted. Individualized dose optimization techniques were used for this CT. COMPARISON: Comparison is made with prior study dated February 20, 2024. FINDINGS: CHEST A right-sided portacatheter is seen with the tip in the superior vena cava. Small fat-containing bilateral axillary lymph nodes. The lungs are normal. There is no demonstrated pleural abnormality. There are calcifications of the coronary arteries. Normal mediastinum. Normal hilar regions. Normal unenhanced pulmonary arteries. Normal aorta arch and descending thoracic aorta. There are multi-level degenerative changes of the thoracic spine. ABDOMEN There is decreased attenuation of the liver consistent with steatosis. 2 cm cyst is seen along the anterior midportion of the right lobe of the liver. Several scattered tiny hypodensities seen in the right lobe suggestive of small cysts. Normal gallbladder and extrahepatic biliary system. Normal spleen. Normal pancreas. Normal bilateral adrenal glands. Normal right kidney. Normal left kidney. There is a small hiatal hernia. Normal small intestine. Normal colon. The appendix is visualized and appears normal. There is scattered atherosclerotic calcification of the abdominal aorta, without a demonstrated aneurysm. Normal inferior vena cava. Normal retroperitoneum. Small lymph nodes are seen in the root of the mesentery. Small bilateral inguinal hernias containing fat. There are degenerative changes of the visualized lumbar spine. PELVIS Diffuse bladder wall thickening. Prostatic enlargement. Central prostatic calcifications. There is no pelvic fluid. There is no pelvic lymphadenopathy or mass lesion. Normal visualized pelvic arteries. CT/CT Chest, Abd, Pel w/Contrast IMPRESSION: Stable examination. Diffuse bladder wall thickening and prostatic enlargement with central prostatic calcifications. Electronically Signed: Yovani Mcwilliams MD at 12:20 EST , CC: Dr. Matteo Rebollar MD; Dr. Robby Benitez MD Space And Storage Clerk: Signed Normal [facility] Comprehensive Metabolic Prof ilon 08-13-2024 Albumin [Mass/Vol] 4.1 g/dL Normal 3.2-5.0 [facility] Comment on above: Performed By: #### L 100.0100, L500.4050 ####[facility] [address] [place], [address] Albumin/Globulin [Mass ratio] 1.4 {ratio} Normal 0.9-2.4 [facility] Comment on above: Performed By: #### L 100.0100, L500.4050 ####[facility] [address] [place], [address] ALK P 102 U/L Normal 45-117 [facility] Comment on above: Performed By: #### L 100.0100, L500.4050 ####[facility] [address] [place], [address] ALT [Catalytic activity/Vol] 38 U/L Normal 16-61 [facility] Comment on above: Performed By: #### L 100.0100, L500.4050 ####[facility] [address] [place], [address] AST [Catalytic activity/Vol] 22 U/L Normal 15-37 [facility] Comment on above: Performed By: #### L 100.0100, L500.4050 ####[facility] [address] [place], [address] Bilirubin [Mass/Vol] 0.60 mg/dL Normal 0.20-1.00 [facility] Comment on above: Result Comment: For patients on eltrombopag therapy, use of Dimension [place] TBIL is not recommended. Performed By: #### L 100.0100, L500.4050 ####[facility] [address] [place], [address] BUN/CRE 16.3 RATIO Normal 10-20 [facility] Comment on above: Performed By: #### L 100.0100, L500.4050 ####[facility] [address] [place], [address] CA,Total 9.4 mg/dL Normal 8.5-10.1 [facility] Comment on above: Performed By: #### L 100.0100, L500.4050 ####[facility] [address] [place], [address] Chloride [Moles/Vol] 105 mmol/L Normal 98-107 [facility] Comment on above: Performed By: #### L 100.0100, L500.4050 ####[facility] [address] [place], [address] CO2 [Moles/Vol] 27.0 mmol/L Normal 21.0-32.0 [facility] Comment on above: Performed By: #### L 100.0100, L500.4050 ####[facility] [address] [place], [address] Creatinine [Mass/Vol] 1.23 mg/dL Normal 0.70-1.30 [facility] Comment on above: Result Comment: The validity of the calculated GFR GFRAA in patients over 70 years has not been determined. Clinical correlation is essential. Performed By: #### L 100.0100, L500.4050 ####[facility] [address] [place], [address] ECRCL 54.28 ml/min Normal [facility] Comment on above: Performed By: #### L 100.0100, L500.4050 ####[facility] [address] [place], [address] EST GFR - AA 73 mL/min Normal >60 [facility] Comment on above: Result Comment: Afri can Cymraes GFR Calc Performed By: #### L 100.0100, L500.4050 ####[facility] [address] [place], [address] GAP 4 Low 5-15 [facility] Comment on above: Performed By: #### L 100.0100, L500.4050 ####[facility] [address] [place], [address] GFR/1.73 sq M.predicted among non-blacks MDRD (S/P/Bld) [Vol rate/Area] 60 mL/min/{1.73_m2} Normal >60 [facility] Comment on above: Result Comment: Non- GFR Calc Performed By: #### L 100.0100, L500.4050 ####[facility] [address] [place], [address] Globulin (S) [Mass/Vol] 2.9 g/dL Normal 2.2-4.2 [facility] Comment on above: Performed By: #### L 100.0100, L500.4050 ####[facility] [address] [place], [address] Glucose [Mass/Vol] 169 mg/dL High 74-106 [facility] Comment on above: Result Comment: Fast ing Glucose result greater than or equal to 126 mg/dL suggests DIABETES MELLITUS per A.D.A. criteria. Performed By: #### L 100.0100, L500.4050 ####[facility] [address] [place], [address] Potassium [Moles/Vol] 4.5 mmol/L Normal 3.5-5.1 [facility] Comment on above: Performed By: #### L 100.0100, L500.4050 ####[facility] [address] [place], [address] Sodium [Moles/Vol] 136 mmol/L Normal 136-145 [facility] Comment on above: Performed By: #### L 100.0100, L500.4050 ####[facility] [address] [place], [address] T PROT 7.0 g/dL Normal 6.4-8.2 [facility] Comment on above: Performed By: #### L 100.0100, L500.4050 ####[facility] [address] [place], [place], [address] Urea nitrogen [Mass/Vol] 20 mg/dL High 7-18 [facility] Comment on above: Performed By: #### L 100.0100, L500.4050 ####[facility] [address] [place], [address] CNOVon 08-11-2024 CNOV Office Visit (INTMWS ) DEBO HULL ([id number]) 1945 Date Time Provider Department 08/11/24 8:40 AM MATTEO REBOLLAR INTMWS During your visit today, we recorded the following information about you: Temperature Pulse Respiration Blood pressure 96.5 degrees 64/minute 16/minute 106/62 Weight Height 93.6 kg 1.74 m Matteo Rebollar MD 08/11/2024 9:51 AM Signed This note was created using [employer]. Subjective Debo Hull is a 79 year old male. HISTORY Debo Hull is a 79 year old gentleman here for yearly exam and follow up appointment. Debo Hull is an 79-year-old male with a history of diabetes mellitus, hypercholesterolemia, and cancer, presenting for a Medicare Annual Wellness Visit. Debo reports feeling well overall but notes occasional balance issues and neuropathy in his feet, which he attributes to his diabetes. He experiences numbness in his toes and has difficulty feeling the ground, leading to concerns about falling and tripping easily. He also mentions a recent dental procedure where a tooth was extracted and a bridge was removed, with plans for reconstruction. Debo is currently undergoing treatment for cancer and has a CT scan scheduled for , followed by a consultation with his oncologist, Dr. Benitez, who is with [facility]. He has completed two chemotherapy sessions and radiation therapy and reports feeling fine. He is also under the care of Dr. Erickson at [facility] for cardiology and Dr. Goel for ophthalmology, with a recent eye exam conducted in June. Debo is taking multiple medications, including Lipitor 40 mg daily, which was last filled in June. He inquires about the necessity of continuing this dosage. He also takes glipizide twice daily before meals as needed but has not used it in months. Other medications include levothyroxine, sertraline, and sildenafil, with the latter recently filled in August. He uses Vicks VapoRub for a fungal infection on his feet and reports improvement in the thickness of his toenails. Debo denies any changes in family history but notes that his brother, a [place] , is in the final stages of Parkinson's disease due to Agent [place] exposure. He also has a sister residing in [place]. He denies any thoughts of self-harm but expresses stress related to his brother's condition and his own cancer treatment. He mentions a desire to avoid prolonged suffering if his cancer were to metastasize to multiple sites. He has great-granddaughters whom he wishes to continue seeing. PAST MEDICAL HISTORY Diagnosis Date Actinic skin damage 02/18/2012 BPH w urinary obs/LUTS 07/05/2011 Cough variant asthma 12/10/2013 Depression Diverticulosis of colon (without mention of hemorrhage) Family history of malignant neoplasm of gastrointestinal tract family history of colon cancer; due for colonoscopy 2016 (last done 2011 and 2005) Frozen shoulder Dr. Slaughter managing; started around Jun 2013 Hypothyroidism Internal hemorrhoids without mention of complication Multinodular goiter 05/21/2012 PURE HYPERCHOLESTEROLEM 02/13/2006 Shingles ~2002 Current Outpatient Medications Medication Sig Lancets (ONETOUCH ULTRASOFT LANCETS) Test blood sugar(s) twice daily and as needed. Dx: Uncontrolled type 2 diabetes without complication E11.65. Insulin: no levothyroxine (SYNTHROID) 112 mcg tablet Take 1 tablet by mouth once daily. atorvastatin (LIPITOR) 40 mg tablet Take 1 tablet by mouth once daily. blood sugar diagnostic (TRUE METRIX GLUCOSE TEST STRIP) test strip 1 Strip once daily. Use as instructed buPROPion XL (WELLBUTRIN XL) 150 mg 24 hr tablet Take 1 tablet by mouth once daily. sertraline (ZOLOFT) 50 mg tablet Take 1 tablet by mouth once daily. albuterol HFA (VENTOLIN HFA) 90 mcg/actuation inhaler Inhale 2 Puffs as instructed every 4 hours as needed for wheezing/shortness of breath. Patient requests Relion brand 60 puffs for $9 sildenafil (VIAGRA) 100 mg tablet Take half to whole pill as directed prior to intercourse. glipiZIDE (GLUCOTROL) 5 mg tablet Take 1 tablet by mouth twice daily before meals. As directed (Patient taking differently: Take 5 mg by mouth two times a day before meals. Taking as needed.) No current facility-administered medications for this visit. ALLERGIES Allergen Reactions Metformin Diarrhea, GI Upset Tried 2 doses and had adverse effects each time Ipratropium Other: See Comments In albuterol inhaler Breathing difficulty Seasonal Allergies Cough hayfever FAMILY HISTORY Problem Relation Age of Onset Colon Cancer Mother mid seventies Parkinson?s Disease Brother Colon Cancer Maternal Grandmother 65yo Social History Tobacco Use Smoking status: Some Days Types: Cigars Passive exposure: Yes Smokeless tobacco: Never Tobacco (more content not included)... Normal [facility] Cardiology Visit Reporton Cardiology Visit Report [facility] [address] [place] [address]. [address] [place] [address] OFFICE VISIT Date of Service: 06/30/24 MR#: [id number] Acct: [id number] Name: DEBO HULL Rep #: [id number] : 1945 Provider: SHANICE angel Age/Sex: 79/M Location: [facility] [place] Status: Signed [facility] History of Present Illness Details: DEBO HULL, is a 79 M who presents to the office today for a cardiovascular hospital follow up visit. He had presented to the emergency room in May with bilateral stomach discomfort while playing golf. The patient continued to finish his round of golf he was on the 12th hole when it started. He also had some lightheadedness and some visual changes. The patient went home he actually stumbled into the house according to his and she called EMS. By the time he got to the emergency department all of his symptoms had resolved. His initial set enzymes troponin was 28- second set came back 600/3 at 904 set was back down to 700. Patient's initial EKG showed normal sinus rhythm and was completely normal. Subsequent EKG showed flattening of the T waves and minor nonspecific ST-T changes. He underwent a cardiac catheterization on 06/05/2024, which demonstrated mild disease noted in the mid right coronary artery and mild ostial OM and ostial diagonal vessel. Medical therapy was recommended at that time. The patient carries a history of bladder cancer status post indwelling therapy as well as systemic chemotherapy with cisplatin him and another drug. This is caused some transient renal insufficiency per the patient and his . The patient has had subsequent CT scans without any contrast-induced nephropathy or allergic reactions. There is a family history of late in life coronary artery disease his father had bypass graft surgery. The patient is not hypertensive in fact his blood pressure runs low in the 90-100 systolic range. He does have a history of hyperlipidemia on atorvastatin which is well-controlled he has a history of hypothyroidism. The patient smoked but he quit 45 years ago. He is diet controlled diabetic. From a cardiac standpoint, the patient is doing well. He denies any palpitations, chest pain, pressure or heaviness. He denies SOB, Orthopnea, and PND. He does not have bleeding issues; no blood in urine, stool or nosebleeds. He does acknowledge a slight decrease in energy level. He denies myalgias, or claudication. He does not have edema, or sudden weight gain. He does acknowledge occasional lightheadedness with quick positional changes. He denies dizziness, syncopal or near syncopal episodes, and headaches. 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 Accompanied by: Is patient in pain?: No Allergies ipratropium (From Atrovent) Allergy (Severe, Verified 06/30/24 13:32) Other Medications ???Medication ???Instructions ???Recorded ???Confirmed ???Type sertraline 50 mg tablet 50 mg PO QDAY mental health 09/07/17 06/30/24 History bupropion HCl 150 mg 24 hr tablet, 150 mg PO QAM mental health 02/27/24 06/30/24 History extended release (Wellbutrin XL) albuterol sulfate 90 mcg/actuation 2 puff inhalation Q8H PRN wheezing 06/04/24 06/30/24 History aerosol inhaler levothyroxine 112 mcg tablet 112 mcg PO .qam thyroid 06/04/24 06/30/24 History aspirin 81 mg tablet,delayed 81 mg PO BREAKFAST #0 tabs 06/06/24 06/30/24 Rx release atorvastatin 40 mg tablet 40 mg PO QHS #30 tabs 06/06/24 06/30/24 Rx clopidogrel 75 mg tablet 75 mg PO DAILY #42 tabs 06/06/24 06/30/24 Rx sildenafil 100 mg tablet 100 mg PO QDAY PRN 06/30/24 06/30/24 History Have you fallen in the past year?: No PFSH Medical History COVID Dehydration Tinnitus Anemia Dysuria Prerenal azotemia Thrombocytopenia Encounter for chemotherapy management Cancer Alcohol use Kidney stones Back pain Encounter for education 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 Normal [facility] 12 Lead EKGon 06-05-2024 12 Lead EKG [facility] [address] [place] [address] 12 Lead EKG 06/05/24 0529 MR#: [id number] Acct: [id number] Name: DEBO HULL Rep #: [id number] : 1945 79 From: Mohsen Singletary MD Attending Dr: Dr. Marino Minaya DO Status: DIS IN Ordering Dr: See Erickson MD Date: 06/05/24 Location: [facility] Sex: M C Admitted: 06/04/24 Test Reason : PRE-OP Blood Pressure : / mmHG Vent. Rate : 058 BPM Atrial Rate : 058 BPM P-R Int : 188 ms QRS Dur : 084 ms QT Int : 458 ms P-R-T Axes : 000 -02 -44 degrees QTc Int : 449 ms Sinus bradycardia Nonspecific ST and T wave abnormality Abnormal ECG When compared with ECG of 04-JUN-2024 20:27, MANUAL COMPARISON REQUIRED, DATA IS UNCONFIRMED Confirmed by LOVE EID, MOHSEN ([id number]), commercial production editor NEVILLE ANGLIN ([id number]) on 07/03/2024 2:13:56 PM Referred By: Confirmed By:MOHSEN SINGLETARY MD 07/03/24 141 Date Mohsen Singletary MD CC: Dr. Marino Minaya DO; Dr. Matteo Rebollar MD; Dr. See Erickson MD Signed Normal [facility] Basic Metabolic Profile (BMP )on 06-05-2024 BUN/CRE 13.9 RATIO Normal 06-29 [facility] Comment on above: Performed By: #### L 300.3900, L100.0100, L500.2500, L501.5200 ####[facility] [address] [place], [address] CA,Total 9.0 mg/dL Normal 8.5-10.1 [facility] Comment on above: Performed By: #### L 300.3900, L100.0100, L500.2500, L501.5200 ####[facility] [address] [place], [address] Chloride [Moles/Vol] 112 mmol/L High 98-107 [facility] Comment on above: Performed By: #### L 300.3900, L100.0100, L500.2500, L501.5200 ####[facility] [address] [place], [address] CO2 [Moles/Vol] 25.0 mmol/L Normal 21.0-32.0 [facility] Comment on above: Performed By: #### L 300.3900, L100.0100, L500.2500, L501.5200 ####[facility] [address] [place], [address] Creatinine [Mass/Vol] 1.37 mg/dL High 0.70-1.30 [facility] Comment on above: Result Comment: The validity of the calculated GFR GFRAA in patients over 70 years has not been determined. Clinical correlation is essential. Performed By: #### L 300.3900, L100.0100, L500.2500, L501.5200 ####[facility] [address] [place], [address] ECRCL 48.81 ml/min Normal [facility] Comment on above: Performed By: #### L 300.3900, L100.0100, L500.2500, L501.5200 ####[facility] [address] [place], [address] EST GFR - AA 64 mL/min Normal >60 [facility] Comment on above: Result Comment: Afri can Cymraes GFR Calc Performed By: #### L 300.3900, L100.0100, L500.2500, L501.5200 ####[facility] [address] [place], [address] GAP 1 Low 5-15 [facility] Comment on above: Performed By: #### L 300.3900, L100.0100, L500.2500, L501.5200 ####[facility] [address] [place], [address] GFR/1.73 sq M.predicted among non-blacks MDRD (S/P/Bld) [Vol rate/Area] 53 mL/min/{1.73_m2} Low >60 [facility] Comment on above: Result Comment: Non- GFR Calc Performed By: #### L 300.3900, L100.0100, L500.2500, L501.5200 ####[facility] [address] [place], [address] Glucose [Mass/Vol] 135 mg/dL High 74-106 [facility] Comment on above: Result Comment: Fast ing Glucose result greater than or equal to 126 mg/dL suggests DIABETES MELLITUS per A.D.A. criteria. Performed By: #### L 300.3900, L100.0100, L500.2500, L501.5200 ####[facility] [address] [place], [address] Potassium [Moles/Vol] 4.3 mmol/L Normal 3.5-5.1 [facility] Comment on above: Performed By: #### L 300.3900, L100.0100, L500.2500, L501.5200 ####[facility] [address] [place], [address] Sodium [Moles/Vol] 138 mmol/L Normal 136-145 [facility] Comment on above: Performed By: #### L 300.3900, L100.0100, L500.2500, L501.5200 ####[facility] [address] [place], [address] Urea nitrogen [Mass/Vol] 19 mg/dL High 7-18 [facility] Comment on above: Performed By: #### L 300.3900, L100.0100, L500.2500, L501.5200 ####[facility] [address] [place], [address] CBC W/Diff, Automatedon 09-2 Absolute Lymph 1.13 X10 3/uL Normal 0.83-4.51 [facility] Comment on above: Performed By: #### L 300.3900, L100.0100, L500.2500, L501.5200 ####[facility] [address] [place], [address] Absolute Neut 2.2 X10 3/uL Normal 2.0-7.7 [facility] Comment on above: Performed By: #### L 300.3900, L100.0100, L500.2500, L501.5200 ####[facility] [address] [place], [address] Basophils/100 WBC (Bld) 0.7 % Normal 0-1 [facility] Comment on above: Performed By: #### L 300.3900, L100.0100, L500.2500, L501.5200 ####[facility] [address] [place], [address] Eosinophils/100 WBC (Bld) 6.5 % High 0-5 [facility] Comment on above: Performed By: #### L 300.3900, L100.0100, L500.2500, L501.5200 ####[facility] [address] [place], [address] Erythrocyte distribution width (RBC) [Ratio] 13.9 % Normal 11.6-14.6 [facility] Comment on above: Performed By: #### L 300.3900, L100.0100, L500.2500, L501.5200 ####[facility] [address] [place], [address] Hematocrit (Bld) [Volume fraction] 35.9 % Low 40-54 [facility] Comment on above: Performed By: #### L 300.3900, L100.0100, L500.2500, L501.5200 ####[facility] [address] [place], [address] Hemoglobin (Bld) [Mass/Vol] 11.8 g/dL Low 13.0-16.5 [facility] Comment on above: Performed By: #### L 300.3900, L100.0100, L500.2500, L501.5200 ####[facility] [address] [place], [address] IG% 0.200 Normal 0.0-0.9 [facility] Comment on above: Result Comment: IG% - Immature Granulocytes (promyelocytes, myelocytes and metamyelocytes) > 1% indicates that a LEFT SHIFT is Present. Performed By: #### L 300.3900, L100.0100, L500.2500, L501.5200 ####[facility] [address] [place], [address] Lymphocytes/100 WBC (Bld) 27.0 % Normal 19-41 [facility] Comment on above: Performed By: #### L 300.3900, L100.0100, L500.2500, L501.5200 ####[facility] [address] [place], [address] MCH (RBC) [Entitic mass] 32.1 pg High 27.0-32.0 [facility] Comment on above: Performed By: #### L 300.3900, L100.0100, L500.2500, L501.5200 ####[facility] [address] [place], [address] MCHC (RBC) [Mass/Vol] 32.9 g/dL Normal 32-36 [facility] Comment on above: Performed By: #### L 300.3900, L100.0100, L500.2500, L501.5200 ####[facility] [address] [place], [address] MCV (RBC) [Entitic vol] 97.6 fL High 80-94 [facility] Comment on above: Performed By: #### L 300.3900, L100.0100, L500.2500, L501.5200 ####[facility] [address] [place], [address] Monocytes/100 WBC (Bld) 12.0 % High 0-10 [facility] Comment on above: Performed By: #### L 300.3900, L100.0100, L500.2500, L501.5200 ####[facility] [address] [place], [address] Neutrophils/100 WBC (Bld) 53.6 % Normal 47-70 [facility] Comment on above: Performed By: #### L 300.3900, L100.0100, L500.2500, L501.5200 ####[facility] [address] [place], [address] Nucleated RBC (Bld) [#/Vol] 0 10*3/uL Normal 0-5 [facility] Comment on above: Performed By: #### L 300.3900, L100.0100, L500.2500, L501.5200 ####[facility] [address] [place], [address] Platelet mean volume (Bld) [Entitic vol] 11.2 fL Normal 6.2-12.0 [facility] Comment on above: Performed By: #### L 300.3900, L100.0100, L500.2500, L501.5200 ####[facility] [address] [place], [address] Platelets (Bld) [#/Vol] 95 10*3/uL Low 150-450 [facility] Comment on above: Performed By: #### L 300.3900, L100.0100, L500.2500, L501.5200 ####[facility] [address] [place], [address] RBC (Bld) [#/Vol] 3.68 10*6/uL Low 4.6-6.2 [facility] Comment on above: Performed By: #### L 300.3900, L100.0100, L500.2500, L501.5200 ####[facility] [address] [place], [address] RDW SD 50.3 fl High 35.1-43.9 [facility] Comment on above: Performed By: #### L 300.3900, L100.0100, L500.2500, L501.5200 ####[facility] [address] [place], [address] WBC (Bld) [#/Vol] 4.2 10*3/uL Low 4.4-11.0 [facility] Comment on above: Performed By: #### L 300.3900, L100.0100, L500.2500, L501.5200 ####[facility] [address] [place], [address] Cardiac Cath Diagnosticon Cardiac Cath Diagnostic [facility] Imaging Services [address] [place] [address] Cardiac Cath Diagnostic MR#: [id number] Acct: [id number] Name: DEBO HULL Rep #: [id number] : 1945 79 From: Mohsen Singletary MD PCP: Dr. Matteo Rebollar MD Status:ADM IN Patient Name: DEBO HULL Study Date: 06/05/2024 Performing: Mohsen Singletary MD Ht: 70 inches 177.8 cm : 1945 Wt: 200.84 lbs 91.1 kg Age: 79 Gender: male BSA: 2.09 PROCEDURE(S) PERFORMED DC01-(08903)LHC/COR/LV CLINICAL PROFILE AND INDICATIONS Indications: Suspected CAD, ACS <= 24 hrs Heart Failure: None Stress/Imaging Stress/Image Study Performed: No CAD Presentations: Non-STEMI. Symptom onset Date/Time: 06/04/24 Time Not Available CONCLUSIONS Mild disease noted in the mid right coronary artery and mild ostial OM and ostial diagonal vessel. RECOMMENDATIONS Medical therapy DESCRIPTION OF PROCEDURE The patient arrived to the procedure lab. The risks and benefits of the procedure as well as a full description of our services here and current unavailability of surgical backup were fully explained to the patient and/or their significant other prior to the catheterization. The Timeout was completed, verifying the correct patient and procedure. The patient's procedural site was prepped and draped in the usual fashion. Local anesthetic was given subcutaneously to right radial region with Lidocaine 2%. Using a modified Seldinger technique, arterial access was obtained via the right radial artery, a 6Fr sheath was inserted. Right Coronary Artery selective angiography was then performed in multiple views using a 5 Fr. 4.0 [place] catheter. Left Coronary Artery selective angiography was performed in multiple views using a 5 Fr. 4.0 [place] catheter. Left Ventriculography was performed in ARCINIEGA projection using a 5 Fr. Pigtail catheter. LV to AO pullback pressures were then recorded.The arterial sheath was pulled and a TR Band was applied for hemostasis-14 cc air CORONARY ANGIOGRAPHY DOMINANCE: Right Dominant LEFT HEART ASSESSMENT Left Ventricular Ejection Fraction: by LV Gram 60 % Normal LV wall motion Normal Left Ventricular systolic function LEFT MAIN: Angiographically normal LEFT ANTERIOR DESCENDING ARTERY: This vessel has mild disease in the first diagonal branch with an ostial 50% stenotic lesion. No high-grade stenosis is noted. RIGHT CORONARY ARTERY: Dominant large right coronary artery with mid segment with 50% smooth stenosis and mild distal disease only COMPLICATIONS No Complications PROCEDURE MEDICATIONS Fentanyl 50 mcg IV Versed 1 mg IV Oxygen: 2 L/min via nasal cannula Heparin given IA 06/05/2024 12:34:49 Verapamil 2.5mg, Ntg 100mcgs, 3000 units of Heparin given IA 06/05/2024 12:34:49 SUMMARY OF HEMODYNAMIC DATA Time AIR REST ECG 12:07:04 Art 113/53 (77) 12:31:58 AO 102/59 (81) SA 12:36:42 LV 108/5, 12 12:42:24 LV 107/0, 13 12:42:35 LV 99/4, 14 12:43:11 LVp 101/4, 13 12:43:16 AOp 106/52 (77) 12:43:23 12:57:57 Signed By Mohsen Singletary MD On 06/05/2024 12:59:50 Mohsen Singletary MD 06/05/24 1300 Date Mohsen Singletary MD Cosigner Signature: Date (if indicated) CC: Dr. Mohsen Singletary MD; Dr. Marino Minaya DO; Dr. Matteo Rebollar MD Date Dictated: 06/05/24 1224 Date Transcribed: 06/05/24 1259 Space [employer] Storage Clerk: [place] Signed Normal [facility] Consultation - Cardiologyon 06-05-2024 Consultation - Cardiology [facility] Medical Records Department [address] [place] [address] Consultation - Cardiology 06/05/24 0825 MR#: [id number] Acct: [id number] Name: DEBO HULL Rep #: [id number] : 1945 79 From: See Erickson MD PCP: Dr. Matteo Rebollar MD Status:ADM IN Location: [place] [address] Assessment Plan Assessment/Plan (1) NSTEMI (non-ST elevated myocardial infarction): PLAN: Patient's symptoms, elevated troponins, and evolution of his EKG are suggestive of a non-ST segment elevation myocardial infarction type I. The patient has remained pain-free since admission. He is not on beta-shilo due to heart rate in the 55 to 65 bpm range with a blood pressure in the 85-90 systolic range. This is partially related to dehydration which is being gingerly replaced. The patient received a single dose of full weighted Lovenox last evening. He has been n.p.o. after midnight. He is not allergic to contrast. The patient is recommended to have invasive cardiac evaluation with left heart catheterization and possible stenting as indicated. The cath and stenting procedures risk/benefit and alternatives were explained to the patient and his in detail they voiced understanding and agreed to proceed as outlined. (2) Dehydration: PLAN: Patient's lab work and hypotensive presentation in the face of playing golf without eating or drinking yesterday is consistent with his being dehydrated. He has been gently rehydrated overnight. His creatinine is up slightly to 1.37. (3) Diabetes: QUALIFIERS: Diabetes mellitus type: type 2 Diabetes mellitus detention insulin use: [facility] detention use Diabetes mellitus complication status: without complication Qualified Code(s): E11.9 - Type 2 diabetes mellitus without complications PLAN: Patient been diagnosed with diabetes remotely. He has not been on medical therapy he has not required it has been diet and exercise controlled. The patient is not obese. (4) High blood cholesterol: PLAN: Patient's lipids in February 2024 total cholesterol was 118 triglycerides 126 LDL 57 and HDL 26 with normal liver function test on his current atorvastatin dose. This represents excellent control and no further manipulation is indicated at this time. The patient is also hypothyroid on replacement his TSH was normal at 1.37 June 04, 2024. PLAN: Plan 1. Will rehydrate with normal saline at 100 cc an hour prior to the catheterization. 2. Reevaluate basic metabolic panel in 24 hours. 3. Proceed with left heart catheterization to define his coronary anatomy. 4. Further recommendations following the outcome of the catheterization. HPI Consult Data Date of Consult: 06/05/24 HPI Narrative Reason for Consultation: Chest pain with positive cardiac enzymes HPI Narrative: DEBO HULL, is a 79 M who presents with a history of bilateral stomach discomfort while playing golf yesterday. This occurred at approximate 1130 hrs. The patient continued to finish his round of golf he was on the 12th hole when it started. He also had some lightheadedness and some visual changes. The patient went home he actually stumbled into the house according to his and she called EMS. By the time he got to the emergency department all of his symptoms had resolved. His initial set enzymes troponin was 28-second set came back 600/3 at 904 set was back down to 700. Patient's initial EKG showed normal sinus rhythm and was completely normal. Subsequent EKG showed flattening of the T waves and minor nonspecific ST-T changes. The patient carries a history of bladder cancer status post indwelling therapy as well as systemic chemotherapy with cisplatin him and another drug. This is caused some transient renal insufficiency per the patient and his . The patient has had subsequent CT scans without any contrast-induced nephropathy or allergic reactions. The patient is very active in his home environment he does admit to at least 1 other episode similar to this where the symptoms lasted a shorter period of time about 10 minutes when he was active. There is a family history of late in life coronary artery disease his father had bypass graft surgery. The patient is not hypertensive in fact his blood pressure runs low in the 90-100 systolic range. He does have a history of hyperlipidemia on atorvastatin which is well-controlled he has a history of hypothyroidism. The patient smoked but he quit 45 years ago. He is diet controlled diabetic. The patient's had no recurrence of his symptoms since hospitalization. His creatinine has increased slightly and it was felt that he was dehydrated upon presentation with a low blood pressure in the 80-90 systolic range. [facility] Medical History COVID Dehydration Tinnitus Anemia Dysuria Prerenal azotemia Thrombocytopenia Enc (more content not included)... Normal [facility] L501.4020on 06-05-2024 TROPONIN-I HS 704 pg/mL Invalid Interpretation Code 3.0-78.0 [facility] Comment on above: Order Comment: 'TROP ' Serial specimen #1, #2 or #3: 4 Result Comment: Crit ical Result(s) Called at: 06:49:56 06/05/2024 by: Sara Rock to [facility]. Results read back by same. Please Note: New Test Units and Gender Specific Reference Ranges. For more information see Policy Stat Procedure [place] High Sensitivity Troponin (TNIH) and attachments. Performed By: #### L 501.4020 ####[facility] [address] [place], [place], [address] Magnesiumon 06-05-2024 Magnesium [Mass/Vol] 2.9 mg/dL High 1.6-2.6 [facility] Comment on above: Performed By: #### L 300.3900, L100.0100, L500.2500, L501.5200 ####[facility] [address] [place], [address] Prothrombin Time w/INRon INR Coag (PPP) [Relative time] 1.2 {INR} Normal [facility] Comment on above: Performed By: #### L 300.3900, L100.0100, L500.2500, L501.5200 ####[facility] [address] [place], [address] PT Coag (PPP) [Time] 14.7 s Normal 11.7-14.9 [facility] Comment on above: Performed By: #### L 300.3900, L100.0100, L500.2500, L501.5200 ####[facility] [address] [place], [address] 12 Lead EKGon 06-04-2024 12 Lead EKG [facility] Cardiovascular Services [address] [place] [address] 12 Lead EKG 06/04/242026 MR#: [id number] Acct: [id number] Name: DEBO HULL Rep #: [id number] : 1945 79 From: See Erickson MD Attending Dr: Dr. Marino Minaya, DO Status: ADM IN Ordering Dr: Kanwal Turner MD Date: 06/04/24 Location: U Sex: M C Admitted: 06/04/24 Test Reason : NSTEMI ADMIT Blood Pressure : / mmHG Vent. Rate : 074 BPM Atrial Rate : 074 BPM P-R Int : 172 ms QRS Dur : 080 ms QT Int : 418 ms P-R-T Axes : 045 -13 -49 degrees QTc Int : 463 ms Normal sinus rhythm Nonspecific ST and T wave abnormality Abnormal ECG When compared with ECG of 04-JUN-2024 14:20, MANUAL COMPARISON REQUIRED, DATA IS UNCONFIRMED Confirmed by See Erickson ([id number]), commercial production editor NEVILLE ANGLIN ([id number]) on 06/05/2024 7:54:12 AM Referred By: Confirmed By:See Erickson 06/05/24 8838 Date See Erickson MD CC: Dr. Marino Minaya DO; Dr. Matteo Rebollar MD; Dr. Kanwal Turner MD Signed [facility] 12 Lead EKG [facility] Cardiovascular Services [address] [place] [address] 12 Lead EKG 06/04/24 1420 MR#: [id number] Acct: [id number] Name: DEBO HULL Rep #: [id number] : 1945 79 From: See Erickson MD Attending Dr: Dr. Marino Minaya DO Status: ADM IN Ordering Dr: Marino Melissa DO Date: 06/04/24 Location: [facility] Sex: M C Admitted: 06/04/24 Test Reason : CP Blood Pressure : / mmHG Vent. Rate : 099 BPM Atrial Rate : 099 BPM P-R Int : 162 ms QRS Dur : 084 ms QT Int : 350 ms P-R-T Axes : 041 -24 000 degrees QTc Int : 449 ms Normal sinus rhythm Nonspecific ST abnormality Abnormal ECG Confirmed by See Erickson ([id number]), commercial production editor KVNG GARCÍA ([id number]) on 06/06/2024 9:32:45 AM Referred By: Confirmed By:See Erickson 06/06/24 0932 Date See Erickson MD CC: Dr. Marino Minaya DO; Dr. Marino Melissa DO; Dr. Matteo Rebollar MD Signed [facility] Basic Metabolic Profile (BMP )on 06-04-2024 BUN/CRE 12.4 RATIO Normal 10-20 [facility] Comment on above: Order Comment: 1Y Performed By: #### L 501.5425, L300.3900, L100.0100, L500.2500 ####[facility] [address] [place], [address] CA,Total 6.6 mg/dL Low 8.5-10.1 [facility] Comment on above: Order Comment: 1Y Performed By: #### L 501.5425, L300.3900, L100.0100, L500.2500 ####[facility] [address] [place], [address] Chloride [Moles/Vol] 117 mmol/L High 98-107 [facility] Comment on above: Order Comment: 1Y Performed By: #### L 501.5425, L300.3900, L100.0100, L500.2500 ####[facility] [address] [place], [address] CO2 [Moles/Vol] 18.0 mmol/L Low 21.0-32.0 [facility] Comment on above: Order Comment: 1Y Performed By: #### L 501.5425, L300.3900, L100.0100, L500.2500 ####[facility] [address] [place], [address] Creatinine [Mass/Vol] 1.29 mg/dL Normal 0.70-1.30 [facility] Comment on above: Order Comment: 1Y Result Comment: The validity of the calculated GFR GFRAA in patients over 70 years has not been determined. Clinical correlation is essential. Performed By: #### L 501.5425, L300.3900, L100.0100, L500.2500 ####[facility] [address] [place], [address] EST GFR - AA 69 mL/min Normal >60 [facility] Comment on above: Order Comment: 1Y Result Comment: Afri can Cymraes GFR Calc Performed By: #### L 501.5425, L300.3900, L100.0100, L500.2500 ####[facility] [address] [place], [address] GAP 6 Normal 5-15 [facility] Comment on above: Order Comment: 1Y Performed By: #### L 501.5425, L300.3900, L100.0100, L500.2500 ####[facility] [address] [place], [address] GFR/1.73 sq M.predicted among non-blacks MDRD (S/P/Bld) [Vol rate/Area] 57 mL/min/{1.73_m2} Low >60 [facility] Comment on above: Order Comment: 1Y Result Comment: Non- GFR Calc Performed By: #### L 501.5425, L300.3900, L100.0100, L500.2500 ####[facility] [address] [place], [address] Glucose [Mass/Vol] 186 mg/dL High 74-106 [facility] Comment on above: Order Comment: 1Y Result Comment: Fast ing Glucose result greater than or equal to 126 mg/dL suggests DIABETES MELLITUS per A.D.A. criteria. Performed By: #### L 501.5425, L300.3900, L100.0100, L500.2500 ####[facility] [address] [place], [address] Potassium [Moles/Vol] 3.0 mmol/L Low 3.5-5.1 [facility] Comment on above: Order Comment: 1Y Performed By: #### L 501.5425, L300.3900, L100.0100, L500.2500 ####[facility] [address] [place], [address] Sodium [Moles/Vol] 141 mmol/L Normal 136-145 [facility] Comment on above: Order Comment: 1Y Performed By: #### L 501.5425, L300.3900, L100.0100, L500.2500 ####[facility] [address] [place], [address] Urea nitrogen [Mass/Vol] 16 mg/dL Normal 7-18 [facility] Comment on above: Order Comment: 1Y Performed By: #### L 501.5425, L300.3900, L100.0100, L500.2500 ####[facility] [address] [place], [address] CBC W/Diff, Automatedon 05-12-2023 Absolute Lymph 0.71 X10 3/uL Low 0.83-4.51 [facility] Comment on above: Performed By: #### L 501.5425, L300.3900, L100.0100, L500.2500 ####[facility] [address] [place], [address] Absolute Neut 4.2 X10 3/uL Normal 2.0-7.7 [facility] Comment on above: Performed By: #### L 501.5425, L300.3900, L100.0100, L500.2500 ####[facility] [address] [place], [address] Basophils/100 WBC (Bld) 0.5 % Normal 0-1 [facility] Comment on above: Performed By: #### L 501.5425, L300.3900, L100.0100, L500.2500 ####[facility] [address] [place], [address] Eosinophils/100 WBC (Bld) 2.7 % Normal 0-5 [facility] Comment on above: Performed By: #### L 501.5425, L300.3900, L100.0100, L500.2500 ####[facility] [address] [place], [address] Erythrocyte distribution width (RBC) [Ratio] 13.8 % Normal 11.6-14.6 [facility] Comment on above: Performed By: #### L 501.5425, L300.3900, L100.0100, L500.2500 ####[facility] [address] [place], [address] Hematocrit (Bld) [Volume fraction] 37.7 % Low 40-54 [facility] Comment on above: Performed By: #### L 501.5425, L300.3900, L100.0100, L500.2500 ####[facility] [address] [place], [address] Hemoglobin (Bld) [Mass/Vol] 12.3 g/dL Low 13.0-16.5 [facility] Comment on above: Performed By: #### L 501.5425, L300.3900, L100.0100, L500.2500 ####[facility] [address] [place], [address] IG% 0.400 Normal 0.0-0.9 [facility] Comment on above: Result Comment: IG% - Immature Granulocytes (promyelocytes, myelocytes and metamyelocytes) > 1% indicates that a LEFT SHIFT is Present. Performed By: #### L 501.5425, L300.3900, L100.0100, L500.2500 ####[facility] [address] [place], [address] Lymphocytes/100 WBC (Bld) 12.7 % Low 19-41 [facility] Comment on above: Performed By: #### L 501.5425, L300.3900, L100.0100, L500.2500 ####[facility] [address] [place], [address] MCH (RBC) [Entitic mass] 31.7 pg Normal 27.0-32.0 [facility] Comment on above: Performed By: #### L 501.5425, L300.3900, L100.0100, L500.2500 ####[facility] [address] [place], [address] MCHC (RBC) [Mass/Vol] 32.6 g/dL Normal 32-36 [facility] Comment on above: Performed By: #### L 501.5425, L300.3900, L100.0100, L500.2500 ####[facility] [address] [place], [address] MCV (RBC) [Entitic vol] 97.2 fL High 80-94 [facility] Comment on above: Performed By: #### L 501.5425, L300.3900, L100.0100, L500.2500 ####[facility] [address] [place], [address] Monocytes/100 WBC (Bld) 8.4 % Normal 0-10 [facility] Comment on above: Performed By: #### L 501.5425, L300.3900, L100.0100, L500.2500 ####[facility] [address] [place], [address] Neutrophils/100 WBC (Bld) 75.3 % High 47-70 [facility] Comment on above: Performed By: #### L 501.5425, L300.3900, L100.0100, L500.2500 ####[facility] [address] [place], [address] Nucleated RBC (Bld) [#/Vol] 0 10*3/uL Normal 0-5 [facility] Comment on above: Performed By: #### L 501.5425, L300.3900, L100.0100, L500.2500 ####[facility] [address] [place], [address] Platelet mean volume (Bld) [Entitic vol] 11.4 fL Normal 6.2-12.0 [facility] Comment on above: Performed By: #### L 501.5425, L300.3900, L100.0100, L500.2500 ####[facility] [address] [place], [address] Platelets (Bld) [#/Vol] 103 10*3/uL Low 150-450 [facility] Comment on above: Performed By: #### L 501.5425, L300.3900, L100.0100, L500.2500 ####[facility] [address] [place], [address] RBC (Bld) [#/Vol] 3.88 10*6/uL Low 4.6-6.2 [facility] Comment on above: Performed By: #### L 501.5425, L300.3900, L100.0100, L500.2500 ####[facility] [address] [place], [address] RDW SD 48.9 fl High 35.1-43.9 [facility] Comment on above: Performed By: #### L 501.5425, L300.3900, L100.0100, L500.2500 ####[facility] [address] [place], [address] WBC (Bld) [#/Vol] 5.6 10*3/uL Normal 4.4-11.0 [facility] Comment on above: Performed By: #### L 501.5425, L300.3900, L100.0100, L500.2500 ####[facility] [address] [place], [address] Chest 1 View (Portable)on Chest 1 View (Portable) [facility] Imaging Services [address] [place] [address] Chest 1 View (Portable) MR#: [id number] Acct: [id number] Name: DEBO HULL Rep #: [id number] : 1945 M 79 From: Yovani hurtado MD PCP: Dr. Matteo Rebollar MD Status: PRE ER Study: Chest 1 View (Portable) Date of Exam: 06/04/24 Exam# [id number] Ordering Dr: Lester Allen [id number] STUDY: X-RAY CHEST REASON FOR EXAM: Male, 79 years old. Chest pain TECHNIQUE: Single AP portable view of the chest. COMPARISON: Comparison is made with prior study dated February 13, 2023. FINDINGS: A right-sided barrera catheter seen with the tip in the midportion of the superior vena cava. Elevation of the right hemidiaphragm. The lungs are clear. There is no demonstrated pleural abnormality. Normal size heart. Normal mediastinum and xiomara. Normal visualized pulmonary arteries. There is atherosclerotic calcification of the aortic arch with tortuosity. Normal visualized thoracic spine. Normal visualized ribs, clavicles, and shoulders. There is no demonstrated abnormality of the visualized soft tissue structures of the upper abdomen. RAD/Chest 1 View (Portable) IMPRESSION: No acute abnormality is seen. Electronically Signed: Yovani Mcwilliams MD at 14:42 EDT , CC: Dr. 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 Performed By: #### L 300.5034, L501.6894, L300.4310, L501.0920 ####[facility] [address] [place], [address] Echo Complete W/ Contraston 06-04-2024 Echo Complete W/ Contrast [facility] Cardiovascular Services [address] [place] [address] Echo Complete W/ Contrast 06/05/24 0915 MR#: [id number] Acct: [id number] Name: DEBO HULL Rep #: [id number] : 1945 79 From: Kelsi Morris MD Attending Dr: Dr. Marino Minaya, DO Status: ADM IN Ordering Dr: Kanwal Turner MD Date: 06/04/24 Location: [facility] Sex: M C Admitted: 06/04/24 Reason For Study: CHEST PAIN Procedure This was a 2D Doppler, Color Flow transthoracic echocardiogram. The study was technically difficult. Contrast injection was performed. Exam performed portable in patient room. Left Ventricle Normal LV size. The estimated ejection fraction is 60 %. No evidence for diastolic dysfunction. No regional wall motion abnormalities noted. Right Ventricle Normal RV size. Normal systolic function. Atria The left and right atria are normal. No doppler evidence for ASD. Mitral Valve There is no mitral valve stenosis. No mitral valve insufficiency. Tricuspid Valve There is no tricuspid stenosis. Trivial tricuspid valve insufficiency. Unable to estimate RV systolic pressure due to insufficient tricuspid regurgitant envelope. Aortic Valve Trisinus/trileaflet aortic valve. There is no aortic stenosis. Trivial aortic valve insufficiency. Pulmonic Valve There is no pulmonic valvular stenosis. No pulmonic valve insufficiency. Great Vessels Mildly dilated aortic root. Pericardium/Pleural No pericardial effusion. Medication Diluted definity 1ml given slow IV push to enhance endocardial definition. MMode/2D Measurements Calculations LVIDd: 4.5 cm IVSd: 1.1 cm LVOT diam: 2.1 cm LVIDs: 2.5 cm LVPWd: 1.2 cm RVDd: 3.4 cm FS: 43.7 % LVOT area: 3.5 cm2 Ao root diam: 3.9 cm asc Aorta Diam: 4.1 cm LAV(MOD-bp): 54.8 ml LAV(MOD-bp) Indexed: 26.2 ml/m2 LAV(MOD-sp2): 55.8 ml LAV(MOD-sp4): 54.3 ml SV(MOD-sp4): 62.2 ml SV(sp4-el): 60.8 ml LVAd ap4: 36.6 cm2 LVLd ap4: 9.1 cm EDV(MOD-sp4): 125.1 ml EDV(sp4-el): 125.4 ml LVAs ap4: 24.4 cm2 LVLs ap4: 7.8 cm ESV(MOD-sp4): 63.0 ml ESV(sp4-el): 64.7 ml EF(MOD-sp4): 49.7 % EF(sp4-el): 48.5 % LA A4 area: 19.8 cm2 LA dimension(2D): 3.8 cm RA A4 area: 9.3 cm2 Time Measurements MV dec time: 0.28 sec Doppler Measurements Calculations MV E max virgil: 55.2 cm/sec Lat Peak E' Virgil: 10.5 cm/sec Med Peak E' Virgil: 7.4 cm/sec MV A max virgil: 51.5 cm/sec E/E' lat: 5.3 E/E' med: 7.5 MV E/A: 1.1 MV V2 max: 64.9 cm/sec MV dec slope: 200.0 cm/sec2 Ao V2 max: 88.8 cm/sec MV max P.7 mmHg Ao max P.2 mmHg MV V2 mean: 39.9 cm/sec Ao V2 mean: 63.0 cm/sec MV mean P.72 mmHg Ao mean P.8 mmHg MV V2 VTI: 23.1 cm Ao V2 VTI: 23.8 cm MVA(VTI): 3.6 cm2 AV (velocity ratio): 1.00 DOMINICK(I,D): 3.5 cm2 DOMINICK(V,D): 3.6 cm2 LV V1 max: 89.7 cm/sec SV(LVOT): 84.2 ml PA V2 max: 58.8 cm/sec LV V1 max P.2 mmHg PA V2 mean: 46.4 cm/sec LV V1 mean P.8 mmHg LV V1 mean: 63.4 cm/sec LV V1 VTI: 23.7 cm PI end-d virgil: 70.5 cm/sec ECHO/Echo Complete W/ Contrast Interpretation Summary The estimated ejection fraction is 60 %. No evidence for diastolic dysfunction. Trivial aortic valve insufficiency. Mildly dilated aortic root. Ordering Physician: Kanwal Turner Referring Physician: MATTEO REBOLLAR Performed By: Chela Suarez and Student 06/05/24 1315 Date Kelsi Morris MD CC: Dr. Marino Minaya DO; Dr. Mateto Rebollar MD; Dr. Kanwal Turner MD Date Dictated: 06/05/24914 Date Transcribed: 06/05/241314 [employer] Clerk: Signed Normal [facility] Emergency Department Summary on 06-04-2024 Emergency Department Summary [facility] Medical Records Department [address] [place] [address] Emergency Department Summary 06/04/24 MR#: [id number] Acct: [id number] Name: DEBO HULL Rep #: [id number] : 1945 79 From: Marino Melissa DO PCP: Dr. Matteo Rebollar MD Status:ADM IN Location: [place] [address] HPI History of Present Illness Chief Complaint: Chest Pain Informant: patient Onset/Context/Timing Onset: Today Activity at onset: sudden Timing: Intermittent Quality: Positive for Aching Location: Right Parasternal and Left Parasternal Worsened By: Nothing Relieved By: Nothing Associated Symptoms: Positive for Nausea, Diaphoresis, Dyspnea and Lightheadedness; Negative for Vomiting, Cough, Fever, Acid Reflux or Palpitations Narrative Narrative: Patient presents with chest pain that began today while golfing. Patient states that he felt like he was lightheaded while he was golfing. Patient states he felt like he was going to pass out. Roni goode states he was able to hold onto the side of the golf cart to avoid falling and passing out. Patient states he had pain along the right and left parasternal area. Patient describes it as aching. Patient states it resolved after 1 hour. Patient states he felt lightheaded and had some diaphoresis with it. Patient also admits to some shortness of breath and nausea with the pain. Patient states his vision did get blurry. Patient states that he is diabetic and felt like his sugar might be getting low. Patient states he ate something with sugar and drank some soda. Patient states he thinks it might of helped a little bit. Patient states he was unable to finish the last hole of golf due to his symptoms. However, patient states he was able to drive himself home from the golf course which was a 30-minute drive. 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 cancer Wears glasses Diabetes Arthritis Former smoker Asthma History of echocardiogram History of stress test Skin lesion Thyroid disease High blood cholesterol Home Medications ???Medication ???Instructions ???Recorded ???Last Taken ???Type sertraline 50 mg tablet 50 mg PO QDAY 09/07/17 06/03/24 History atorvastatin 20 mg tablet (Lipitor) 20 mg PO QHS cholesterol 08/08/23 06/03/24 History bupropion HCl 150 mg 24 hr tablet, 150 mg PO QAM 02/27/24 06/04/24 07:00 History extended release (Wellbutrin XL) albuterol sulfate 90 mcg/actuation 2 puff inhalation Q8H PRN wheezing 06/04/24 Unknown History aerosol inhaler levothyroxine 112 mcg tablet 112 mcg PO .qam thyroid 06/04/24 06/04/24 07:00 History Allergy/AdvReac Type Severity Reaction Status Date / Time ipratropium (From Atrovent) Allergy Severe Other Verified 06/04/24 14:11 Family History Mother Colon cancer Grandmother Colon cancer Grandfather CVA (cerebral vascular accident) Grandmother CVA (cerebral vascular accident) Surgical History S/P TURP (status post transurethral resection of prostate) History of transurethral resection of bladder tumor (TURBT) History of cystoscopy Hx of transurethral destruction of bladder lesion Hx of colonoscopy History of thyroidectomy Social History Smoking Status: Former smoker alcohol intake: never ROS ROS ED Constitutional Constitutional ED: Denies chills or fever(s) Eyes Eyes: Reports blurry vision; Denies change in vision ENT ENT ED: Denies rhinorrhea or sore throat Cardiovascular Cardiovascular: Reports chest pain; Denies palpitations Respiratory/Chest Respiratory/Chest: Reports dyspnea; Denies cough Gastrointestinal Gastrointestinal: Reports nausea; Denies abdominal pain or vomiting Genitourinary Genitourinary ED: Denies dysuria or hematuria Musculoskeletal Musculoskeletal: Denies back pain or neck pain Integumentary Denies abscess or rash Neurologic Neurologic: Reports weakness; Denies headache(s) Allergic/Immunologic Allergic/Immunologic ED: Denies mouth swelling or urticaria EXAM Physical Exam Const Vital Signs: 06/04/24 14:11 06/04/24 14:47 06/04/24 14:49 Temperature 97.1 F L Temperature Source Temporal Pul (more content not included)... Normal [facility] H AND P Exam - Hospitaliston 06-04-2024 H&P Exam - Hospitalist [facility] Medical Records Department [address] [place] [address] H P Exam - Hospitalist 06/04/24 1757 MR#: [id number] Acct: [id number] Name: DEBO HULL Rep #: [id number] : 1945 79 From: Kanwal Turner MD PCP: Dr. Matteo Rebollar MD Status:ADM IN Location: [facility] [id number] HPI - General General Date of Admission: 06/04/24 Date of Service: 06/04/24 Chief Complaint: Chest pain HPI Narrative DEBO HULL, is a 79 M with a history of bladder cancer in remission, diet-controlled diabetes, hypothyroidism, depression presented [facility] ED 06/04/2024 with an hour of dull aching chest pain with lightheadedness and blurry vision. He was playing golf and at the time and was on the 12 hole when he suddenly had a dull ache on either side of his sternum was feeling lightheaded, this persisted so patient went home and did not finish his last round of golf, on his way home he also had some blurry vision, the symptoms all persisted until patient was in the ED. Had not eaten or drank very well today and was sweating and blood pressure 80s to 90s systolic upon arrival. Otherwise lab workup initially not overtly remarkable and initial troponin within normal limits and patient symptoms resolved so hospitalist contacted for admission for chest pain rule out. Discussed with patient and currently pain-free and not feeling lightheaded anymore, notes that this has not happened to him before, no medication changes in the past few days. Did have COVID at the beginning of this month and has had some lingering cough and congestion but denies any new symptoms and has not had any fevers or chills. No swelling in lower extremities. 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 cancer Wears glasses Diabetes Arthritis Former smoker Asthma History of echocardiogram History of stress test Skin lesion Thyroid disease High blood cholesterol Home Medications ???Medication ???Instructions ???Recorded ???Last Taken ???Type sertraline 50 mg tablet 50 mg PO QDAY 09/07/17 06/03/24 History atorvastatin 20 mg tablet (Lipitor) 20 mg PO QDAY 08/08/23 06/03/24 History bupropion HCl 150 mg 24 hr tablet, 150 mg PO QAM 02/27/24 06/04/24 07:00 History extended release (Wellbutrin XL) albuterol sulfate 90 mcg/actuation 2 puff inhalation Q8H PRN wheezing 06/04/24 Unknown History aerosol inhaler levothyroxine 112 mcg tablet 112 mcg PO DAILY 06/04/24 06/04/24 07:00 History Allergy/AdvReac Type Severity Reaction Status Date / Time ipratropium (From Atrovent) Allergy Severe Other Verified 06/04/24 14:11 Family History Mother Colon cancer Grandmother Colon cancer Grandfather CVA (cerebral vascular accident) Grandmother CVA (cerebral vascular accident) Surgical History S/P TURP (status post transurethral resection of prostate) History of transurethral resection of bladder tumor (TURBT) History of cystoscopy Hx of transurethral destruction of bladder lesion Hx of colonoscopy History of thyroidectomy Social History Smoking Status: Former smoker alcohol intake: never ROS ROS Narrative General: Denies fever/chills HENT: Denies headache, denies stuffy nose, denies sore throat EYES: Had some blurry vision earlier when symptoms were present Resp: Has had a little bit of cough and congestion post-COVID Cardiac: Had dull substernal chest discomfort that lasted for over an hour GI: Denies abdominal pain, denies changes in bowel, denies nausea/vomiting : Denies changes in urination Extremity: Denies swelling MSK: Denies weakness Neuro: Denies any numbness/tingling Heme: Denies any bleeding or bruising Skin: Denies rashes Psychiatric: No complaints voiced Vital Signs Vital Signs Vital Signs: 06/04/24 14:11 06/04/24 14:47 06/04/24 14:49 Temperature 97.1 F L Temperature Source Temporal Pulse Rate 105 H Respiratory Rate 18 Respiratory Effort Normal Non-Labored Blood Pressure 90/54 L Blood Pressure Mean 66 Pulse Ox 97 Oxygen Delivery Method Room Air Room Air 06/04/24 15:00 06/04/24 16:00 06/04/24 17:00 Temperature Temperature Source Pulse Rate 82 74 70 Respiratory Rate 17 19 H 16 Respiratory Effort Blood Pressure 93/52 L 97/71 84/67 L Blood Pressure Mean 66 80 74 Pulse Ox 97 98 Oxygen Delivery Method Weight Weig (more content not included)... Normal [facility] L501.4020on 06-04-2024 TROPONIN-I HS 981 pg/mL Invalid Interpretation Code 3.0-78.0 [facility] Comment on above: Order Comment: Comme nts: TNIH @ 0, 2, 6 hrs; Check #2 TNIH done in ED'TROP' Serial specimen #1, #2 or #3: 3 Result Comment: Plea se Note: New Test Units and Gender Specific Reference Ranges. For more information see Policy Stat Procedure [place] High Sensitivity Troponin (TNIH) and attachments. Performed By: #### L 501.4020 ####[facility] [address] [place], [address] TROPONIN-I HS 667 pg/mL Invalid Interpretation Code 3.0-78.0 [facility] Comment on above: Result Comment: Plea se Note: New Test Units and Gender Specific Reference Ranges. For more information see Policy Stat Procedure [place] High Sensitivity Troponin (TNIH) and attachments. Performed By: #### L 501.4020 ####[facility] [address] [place], [address] L501.5425on 06-04-2024 TROPONIN-I HS 28 pg/mL Normal 3.0-78.0 [facility] Comment on above: Order Comment: 1Y Result Comment: Plea se Note: New Test Units and Gender Specific Reference Ranges. For more information see Policy Stat Procedure [place] High Sensitivity Troponin (TNIH) and attachments. Performed By: #### L 501.5425, L300.3900, L100.0100, L500.2500 ####[facility] [address] [place], [address] Magnesiumon 06-04-2024 Magnesium [Mass/Vol] 1.3 mg/dL Low 1.6-2.6 [facility] Comment on above: Performed By: #### L 300.8000, L501.9520, L300.4310, L501.5200 ####[facility] [address] [place], [address] Partial Thromboplast Timeon 06-04-2024 aPTT Coag (Bld) [Time] 27.8 s Normal 24.1-36.2 [facility] Comment on above: Performed By: #### L 300.8000, L501.9520, L300.4310, L501.5200 ####[facility] [address] [place], [address] Prothrombin Time w/INRon INR Coag (PPP) [Relative time] 1.2 {INR} Normal [facility] Comment on above: Performed By: #### L 501.5425, L300.3900, L100.0100, L500.2500 ####[facility] [address] [place], [address] PT Coag (PPP) [Time] 14.9 s Normal 11.7-14.9 [facility] Comment on above: Performed By: #### L 501.5425, L300.3900, L100.0100, L500.2500 ####[facility] [address] [place], [address] Thyroid Stim Hormone (TSH)on 06-04-2024 TSH 1.370 uIU/mL Normal 0.358-3.740 [facility] Comment on above: Performed By: #### L 300.8000, L501.9520, L300.4310, L501.5200 ####[facility] [address] [place], [address] Radiation Oncology Visiton 0 06-02-2024 Radiation Oncology Visit [facility] [address] [place] [address] OFFICE VISIT Date of Service: 06/02/24 0852 MR#: [id number] Acct: [id number] Name: DEBO HULL Rep #: [id number] : 1945 From: Jim Ward DO Age/Sex: 79/M Location: [facility] Status: Signed Intake Vital Signs 11/30/23 08:26 02/27/24 13:26 06/02/24 08:57 Height 5 ft 10 in 5 ft 10 in 5 ft 10 in Weight: 200 lb 2 oz BMI 28.7 BP 98/65 Blood Pressure Location Rt brachial Position Sitting Respiration 18 Pulse 64 Pulse Source Monitor Temp 98.1 F Temperature Source Temporal Artery Pulse Oximetry (%) 96 Oxygen Delivery Method room air Intake Visit Reasons: 6 MONTH F/U BLADDER Is patient in pain?: No Allergies ipratropium (From Atrovent) Allergy (Severe, Verified 06/02/24 08:56) Other Medications ???Medication ???Instructions ???Recorded ???Confirmed ???Type sertraline 50 mg tablet 50 mg PO QDAY 09/07/17 06/02/24 History sildenafil 100 mg tablet 100 mg PO ONCE PRN Edema 09/07/17 06/02/24 History albuterol sulfate 90 mcg/actuation 1 puff inhalation PRN PRN ALLERGIES 06/15/21 06/02/24 History aerosol inhaler lidocaine-prilocaine 2.5 %-2.5 % 1 applic topical ONCE PRN port 02/07/23 06/02/24 Rx topical cream access 30 days #30 grams ondansetron 8 mg disintegrating 8 mg PO Q8H PRN nausea and 02/07/23 06/02/24 Rx tablet vomiting #30 tabs prochlorperazine maleate 10 mg 10 mg PO Q6H PRN nausea and 02/07/23 06/02/24 Rx tablet vomiting #30 tabs betamethasone, augmented 0.05 % 1 applic topical DAILY 02/20/23 06/02/24 History topical cream bisacodyl 5 mg tablet,delayed 5 mg PO DAILY PRN constipation 03/06/23 06/02/24 History release (Dulcolax (bisacodyl)) docusate sodium 100 mg capsule 100 mg PO DAILY 03/06/23 06/02/24 History (Stool Softener) polyethylene glycol 3350 17 gram 17 g PO DAILY PRN constipation 03/12/23 06/02/24 History oral powder packet (Miralax) glipizide 5 mg tablet 5 mg PO TID 05/07/23 06/02/24 History levothyroxine 125 mcg capsule 112 mcg PO QDAY 08/01/23 06/02/24 History atorvastatin 20 mg tablet (Lipitor) 20 mg PO QDAY 08/08/23 06/02/24 History bupropion HCl 150 mg 24 hr tablet, 150 mg PO QAM 02/27/24 06/02/24 History extended release (Wellbutrin XL) Have you fallen in the past year?: No PFSH PFSH Medical History (Updated 06/02/24 @ 08:57 by Rosalind Villavicencio) COVID Dehydration Tinnitus Anemia Dysuria Prerenal azotemia Thrombocytopenia Encounter for chemotherapy management Cancer Alcohol use Kidney stones Back pain Encounter for education 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 cancer Wears glasses Diabetes Arthritis Former smoker Asthma History of echocardiogram History of stress test Skin lesion Thyroid disease High blood cholesterol Home Medications ???Medication ???Instructions ???Recorded ???Last Taken ???Type sertraline 50 mg tablet 50 mg PO QDAY 09/07/17 04/17/23 History sildenafil 100 mg tablet 100 mg PO ONCE PRN Edema 09/07/17 Unknown History albuterol sulfate 90 mcg/actuation 1 puff inhalation PRN PRN ALLERGIES 06/15/21 Unknown History aerosol inhaler lidocaine-prilocaine 2.5 %-2.5 % 1 applic topical ONCE PRN port 02/07/23 Unknown Rx topical cream access 30 days #30 grams ondansetron 8 mg disintegrating 8 mg PO Q8H PRN nausea and 02/07/23 Unknown Rx tablet vomiting #30 tabs prochlorperazine maleate 10 mg 10 mg PO Q6H PRN nausea and 02/07/23 Unknown Rx tablet vomiting #30 tabs betamethasone, augmented 0.05 % 1 applic topical DAILY 02/20/23 Unknown History topical cream bisacodyl 5 mg tablet,delayed 5 mg PO DAILY PRN constipation 03/06/23 04/17/23 History release (Dulcolax (bisacodyl)) docusate sodium 100 mg capsule 100 mg PO DAILY 03/06/23 04/17/23 History (Stool Softener) polyethylene glycol 3350 17 gram 17 g PO DAILY PRN constipation 03/12/23 04/17/23 History oral powder packet (Miralax) glipizide 5 mg tablet 5 mg PO TID 05/07/23 Unknown History levothyroxine 125 mcg capsule 112 mcg PO QDAY 08/01/23 Unknown History atorvastatin 20 mg tablet (Lipitor) 20 mg PO QDAY 08/08/23 Unknown History bupropion HCl 150 mg 24 hr tablet, 150 mg PO QAM 02/27/24 Unknown History extended release (Wellbutrin XL) Allergy/AdvReac Type Severity Reaction Status Date / Time ipratropium (From Atrovent) Allergy Severe Other Verified 06/02/24 08:56 Family History Mother Colon cancer Grandmother Colon cancer Grandfather CVA (cerebral vascular accident) Grandmother CVA (cerebral vascular accident) Surgical History S/P TURP (status post transurethral resection of pro (more content not included)... Normal [facility] CYSTOSCOPYon 04-03-2024 Bessy Garcia MD 04/03/2024 10:44 AM CYSTOSCOPY Date/Time: 04/03/2024 10:00 AM Performed by: Bessy Garcia MD Authorized by: Bessy Garcia MD The attending physician was present for the entire procedure. Pre-Procedure: Indications: bladder cancer Detailed information of all possible complications and side effects were discussed with the patient, these include but not only; UTI, sepsis, hematuria, incontinence, urethral injury and cardiovascular complications. Informed consent was obtained. Does this procedure require a [place] Protocol? Yes. [place] Protocol is required. Procedure: Procedure performed: cystoscopy The patient was placed supine with all pressure points well padded. Patient was prepped and draped in the usual sterile fashion with chlorhexidine. 10 mL of lidocaine 2% topical gel was inserted into urethra for local anesthesia. A penile clamp was not applied. The flexible cystoscope was lubricated and placed into the urethral tract under direct visualization. A 360 survey of the bladder was performed. The cystoscope was reflected and the bladder neck and the ureteral orifices were inspected. The findings are detailed below. The cystoscope was removed following any additional procedures documented below. Findings: The urinary meatus appeared normal. There was not a prominent median lobe. The lateral lobes were not obstructive in appearance. No tumors observed. No bladder fistula present. No foreign bodies observed. No stones found. No trabeculations were found. Both ureteral orifices were normal in size, shape and position with efflux of clear urine. The urethra was inspected. No foreign body(s) present in urethra. No urethral diverticulum observed. No urethral stricture found. Cystoscopy normal Post Procedure: Patient tolerated procedure with no immediate complications EBL: no blood loss Procedure Comments: LUISANA. The patient wishes to stop surveillance cystoscopies on a scheduled basis and will return p.r.n. urinary symptoms such as gross hematuria [facility] observation (narrative) [facility] Cholesterol measurementOrder ed By: Robby Benitez on 02-20-2024 Cholesterol [Mass/Vol] 118 mg/dL <200 [facility] Comment on above: <200 mg/dL Desirable 200-240 mg/dL Borderline >240 mg/dL High Risk Hemoglobin A1c percentageOrd ered By: Robby Benitez on 02-20-2024 HbA1c (Bld) [Mass fraction] 6.9 % High 3.8-5.6 [facility] Comment on above: Normal < 5.7 % Predi abetic 5.7 - 6.4 % Diabetic >or= 6.5 % Please note range changes. High density lipoprotein (HD L) measurementOrdered By: Robby Benitez on 02-20-2024 Cholesterol in HDL [Mass/Vol] 36 mg/dL Low >40 [facility] Comment on above: The drugs N-Acetylcy steine and Metamizole may falsely depress this assay. Reference Range HDL <40 mg/dL Low HDL Cholesterol HDL >or= 60 mg/dL High HDL Cholesterol Low density lipoprotein (LDL ) cholesterol measurementOrdered By: Robby Benitez on 02-20-2024 Cholesterol in LDL [Mass/Vol] 57 mg/dL 0-130 [facility] Triglycerides measurementOrd ered By: Robby Benitez on 02-20-2024 Triglyceride [Mass/Vol] 126 mg/dL <199 [facility] Comment on above: The drugs N-Acetylcy steine and Metamizole may falsely depress this assay.Serum Triglycerides Reference Interval Normal <150 mg/dL Borderline high 150 - 199 mg/dL High 200 - 499 mg/dL Very High > or = 500 mg/dL Urine creatinine measurement (mass/volume)Ordered By: Robby Benitez on 02-20-2024 Creatinine (U) [Mass/Vol] 82.10 mg/dL NO RANGE EST. [facility] Very low density lipoprotein (VLDL) cholesterol measurementOrdered By: [facility] on 02-20-2024 Very low density lipoprotein (VLDL) cholesterol measurement 25 mg/dL 5-40 [facility] Magnesium measurementOrdered By: [facility] on 12-03-2023 Magnesium [Mass/Vol] 2.2 mg/dL 1.6-2.6 [facility] Absolute lymphocyte countOrd ered By: [facility] on 06-25-2023 Lymphocytes Auto (Unsp spec) [#/Vol] 1.31 10*3/uL 0.83-4.51 [facility] Basophil percentageOrdered B y: Robby Benitez on 06-25-2023 Basophil percentage 2.9 mg/dL 2.5-4.9 [facility] Basophils/100 WBC (Bld) 0.4 % 0-1 [facility] Bilirubin [Mass/Vol] 0.40 mg/dL 0.20-1.00 [facility] Comment on above: For patients on eltr ombopag therapy, use of Dimension [place] TBIL is not recommended. Chloride [Moles/Vol] 108 mmol/L 98-107 [facility] Eosinophils/100 WBC (Bld) 2.5 % 0-5 [facility] Glucose [Mass/Vol] 102 mg/dL 74-106 [facility] Comment on above: Fasting Glucose resu lt from 100 to 125 mg/dL suggests IMPAIRED HOMEOSTASIS per A.D.A. criteria. Neutrophils (Bld) [#/Vol] 7.1 10*3/uL 2.0-7.7 [facility] Neutrophils/100 WBC (Bld) 72.7 % 47-70 [facility] Potassium [Moles/Vol] 5.0 mmol/L 3.5-5.1 [facility] Protein [Mass/Vol] 6.5 g/dL 6.4-8.2 [facility] Sodium [Moles/Vol] 138 mmol/L 136-145 [facility] WBC (Bld) [#/Vol] 9.8 10*3/uL 4.4-11.0 [facility] Blood erythrocytes count (nu mber/volume)Ordered By: Robby Benitez on 06-25-2023 RBC (Bld) [#/Vol] 2.83 10*6/uL 4.6-6.2 [facility] Blood hemoglobin measurement (mass/volume)Ordered By: Robby Benitez on 06-25-2023 Hemoglobin (Bld) [Mass/Vol] 9.5 g/dL 13.0-16.5 [facility] Blood lymphocytes/100 leukoc ytesOrdered By: Robby Benitez on 06-25-2023 Lymphocytes/100 WBC (Bld) 13.4 % 19-41 [facility] Blood monocytes/100 leukocyt esOrdered By: [facility] 06-[facility]23 Monocytes/100 WBC (Bld) 10.0 % 0-10 [facility] Blood platelet mean volumeOr dered By: Robby Benitez on 06-25-2023 Platelet mean volume (Bld) [Entitic vol] 10.3 fL 6.2-12.0 [facility] Determination of erythrocyte mean corpuscular volume (MCV)Ordered By: Robby Benitez on 06-25-2023 MCV (RBC) [Entitic vol] 105.3 fL 80-94 [facility] Hematocrit Auto (Bld) [Volum e fraction]Ordered By: Robby Benitez on 06-25-2023 Hematocrit (Bld) [Volume fraction] 29.8 % 40-54 [facility] Laboratory - Chemistry and C hemistry - challengeOrdered By: [facility] on 06-25-2023 ALP [Catalytic activity/Vol] 111 U/L 45-117 [facility] ALT [Catalytic activity/Vol] 32 U/L 16-61 [facility] CO2 [Moles/Vol] 25.0 mmol/L 21.0-32.0 [facility] Globulin (S) [Mass/Vol] 2.8 g/dL 2.2-4.2 [facility] Magnesium [Mass/Vol] 2.1 mg/dL 1.6-2.6 [facility] Urea nitrogen/Creatinine [Mass ratio] 14.3 mg/mg 10-20 [facility] Laboratory - Hematology and Cell countsOrdered By: Robby Benitez on 06-25-2023 Anisocytosis Ql (Bld) 1+ [facility] Erythrocyte distribution width (RBC) [Entitic vol] 71.9 fL 35.1-43.9 [facility] Erythrocyte distribution width (RBC) [Ratio] 18.4 % 11.6-14.6 [facility] Immature granulocytes/100 WBC (Bld) 1.000 % 0.0-0.9 [facility] Comment on above: IG% - Immature Granu locytes (promyelocytes, myelocytes and metamyelocytes) > 1% indicates that a LEFT SHIFT is Present. MCH (RBC) [Entitic mass] 33.6 pg 27.0-32.0 [facility] Nucleated RBC/100 WBC (Bld) [Ratio] 0 % 0-5 [facility] MCHC Auto (RBC) [Mass/Vol]Or dered By: Robby Benitez on 06-25-2023 MCHC (RBC) [Mass/Vol] 31.9 g/dL 32-36 [facility] No Panel InformationOrdered By: Robby Benitez on 06-25-2023 Estimated Creatinine Clearance Calc 51.97 ml/min [facility] Estimated GFR (MDRD) Amer 76 mL/min >60 [facility] Comment on above: GFR Calc Estimated GFR (MDRD) Non-Af Amer 63 mL/min >60 [facility] Comment on above: Non- GFR Calc Platelets bldOrdered By: Roddy Benitez on 06-25-2023 Platelets (Bld) [#/Vol] 161 10*3/uL 150-450 [facility] Serum or plasma albumin valentine urement (mass/volume)Ordered By: Robby Benitez on 06-25-2023 Albumin [Mass/Vol] 3.7 g/dL 3.2-5.0 [facility] Serum or plasma albumin/glob ulin mass ratioOrdered By: Robby Benitez on 06-25-2023 Albumin/Globulin [Mass ratio] 1.3 {ratio} 0.9-2.4 [facility] Serum or plasma calcium valentine urement (mass/volume)Ordered By: Robby Benitez on 06-25-2023 Calcium [Mass/Vol] 8.8 mg/dL 8.5-10.1 [facility] Serum or plasma creatinine m easurement (mass/volume)Ordered By: Robby Benitez on 06-25-2023 Creatinine [Mass/Vol] 1.19 mg/dL 0.70-1.30 [facility] Comment on above: The validity of the calculated GFR & GFRAA in patients over 70 years has not been determined. Clinical correlation is essential. Serum or plasma urea nitroge n measurement (mass/volume)Ordered By: Robby Benitez on 06-25-2023 Urea nitrogen [Mass/Vol] 17 mg/dL 7-18 [facility] Thin prep Papanicolaou smear with manual screeningOrdered By: Robby Benitez on 06-25-2023 Thin prep Papanicolaou smear with manual screening 20 U/L 15-37 [facility] Thin prep Papanicolaou smear with manual screening 5 5-15 [facility] Blood platelet adequacy dete ction by light microscopyOrdered By: Robby Benitez on 06-18-2023 Platelets LM Ql (Bld) MKD DEC ADEQ [facility] Review by pathologistOrdered By: Robby Benitez on 06-18-2023 Pathologist review Tucker (Unsp spec) [Interp] Reviewed [facility] Comment on above: Previous reported re sult: Tanika black Edited by: RGOOD on 06/20/23:1304Neutrophilic leukocytosis.Macrocytic anemia.Marked Thrombocytopenia.Clinical correlation necessary.Jewel Seymour D.O. 06/20/23 AMENDED REPORT 06/20/23 1304 PATH REV previously reported as: Tanika black Blood band neutrophil count as percentage of total leukocytesOrdered By: Robby Benitez on 06-14-2023 Band form neutrophils/100 WBC (Bld) 1 % 0-5 [facility] Blood hypersegmented neutrop hil countOrdered By: Robby Benitez on 06-14-2023 Neutrophils.hypersegment ed (Bld) [#/Vol] RARE High [facility] Blood monocytes/100 leukocyt esOrdered By: Robby Benitez on 06-14-2023 Monocytes/100 WBC (Bld) 1 % 0-10 [facility] Blood segmented neutrophils/ 100 leukocytesOrdered By: Robby Benitez on 06-14-2023 Segmented neutrophils/100 WBC (Bld) 98 % High 47-70 [facility] Hypochromatic red blood cell detectionOrdered By: Robby Benitez on 06-14-2023 Hypochromia Ql (Bld) 1+ [facility] Total cell countOrdered By: Robby Benitez on 06-14-2023 Cells counted Molgen (Bld/Tiss) [#] 100 MANUAL DIFF [facility] Blood manual differential co mment interpretation (narrative result)Ordered By: Robby Benitez on 06-11-2023 Manual differential comment Tucker (Bld) [Interp] SCANNED [facility] Macrocytes detectionOrdered By: Robby Benitez on 06-11-2023 Macrocytes Ql (Bld) 1+ [facility] Thin prep Papanicolaou smear with manual screeningOrdered By: Robby Benitez on 06-11-2023 Thin prep Papanicolaou smear with manual screening 1+ [facility] Blood eosinophils/100 leukoc ytesOrdered By: Yecenia Wilson on 05-25-2023 Eosinophils/100 WBC (Bld) 1 % 0-5 [facility] Iron measurement (mass/mass) Ordered By: Yecenia Wilson on 05-07-2023 Iron (Unsp spec) [Mass/Mass] 69 ug/dL 65-175 [facility] No Panel InformationOrdered By: Yecenia Wilson on 05-07-2023 Total Iron Binding Capacity 249 ug/dL Low 250-450 [facility] Serum or plasma ferritin cirilo surement (mass/volume)Ordered By: Yecenia Wilson on 05-07-2023 Ferritin [Mass/Vol] 1097 ng/mL High 26-388 [facility] Serum or plasma iron saturat ion measurement (mass fraction)Ordered By: Yecenia Wilson on 05-07-2023 Iron saturation [Mass fraction] 27.7 % 15.0-55.0 [facility] Glucose Glucometer (BldC) [M ass/Vol]Ordered By: Teo Ross on 04-18-2023 Glucose [Mass/Vol] 114 mg/dL 74-106 [facility] Comment on above: MANAGEMENT OF PATIEN T CARE PER NURSING PROTOCOL Absolute lymphocyte countOrd ered By: Robby Benitez on 04-16-2023 Lymphocytes Auto (Unsp spec) [#/Vol] 2.22 10*3/uL 0.83-4.51 [facility] Basophil percentageOrdered B y: Robby Benitez on 04-16-2023 Basophils/100 WBC (Bld) 0.7 % 0-1 [facility] Chloride [Moles/Vol] 104 mmol/L 98-107 [facility] Eosinophils/100 WBC (Bld) 0.3 % 0-5 [facility] Glucose [Mass/Vol] 133 mg/dL 74-106 [facility] Comment on above: Fasting Glucose resu lt greater than or equal to 126 mg/dL suggests DIABETES MELLITUS per A.D.A. criteria. Neutrophils (Bld) [#/Vol] 24.9 10*3/uL 2.0-7.7 [facility] Neutrophils/100 WBC (Bld) 83.4 % 47-70 [facility] Potassium [Moles/Vol] 4.1 mmol/L 3.5-5.1 [facility] Sodium [Moles/Vol] 135 mmol/L 136-145 [facility] WBC (Bld) [#/Vol] 29.8 10*3/uL 4.4-11.0 [facility] Blood erythrocytes count (nu mber/volume)Ordered By: Robby Benitez on 04-16-2023 RBC (Bld) [#/Vol] 2.93 10*6/uL 4.6-6.2 [facility] Blood hemoglobin measurement (mass/volume)Ordered By: Robby Benitez on 04-16-2023 Hemoglobin (Bld) [Mass/Vol] 9.1 g/dL 13.0-16.5 [facility] Blood lymphocytes/100 leukoc ytesOrdered By: Robby Benitez on 04-16-2023 Lymphocytes/100 WBC (Bld) 7.4 % 19-41 [facility] Blood monocytes/100 leukocyt esOrdered By: oRbby Benitez on 04-16-2023 Monocytes/100 WBC (Bld) 5.1 % 0-10 [facility] Blood platelet mean volumeOr dered By: Robby Benitez on 04-16-2023 Platelet mean volume (Bld) [Entitic vol] 10.6 fL 6.2-12.0 [facility] Determination of erythrocyte mean corpuscular volume (MCV)Ordered By: Robby Benitez on 04-16-2023 MCV (RBC) [Entitic vol] 92.2 fL 80-94 [facility] Hematocrit Auto (Bld) [Volum e fraction]Or[facility]: [facility] on 04-16-2023 Hematocrit (Bld) [Volume fraction] 27.0 % 40-54 [facility] Laboratory - Chemistry and C hemistry - challengeOrdered By: [facility] on 04-16-2023 CO2 [Moles/Vol] 26.0 mmol/L 21.0-32.0 [facility] Magnesium [Mass/Vol] 1.6 mg/dL 1.6-2.6 [facility] Urea nitrogen/Creatinine [Mass ratio] 15.8 mg/mg 10-20 [facility] Laboratory - Hematology and Cell countsOrdered By: [facility] on 04-16-2023 Erythrocyte distribution width (RBC) [Entitic vol] 50.2 fL 35.1-43.9 [facility] Erythrocyte distribution width (RBC) [Ratio] 15.9 % 11.6-14.6 [facility] Immature granulocytes/100 WBC (Bld) 3.100 % 0.0-0.9 [facility] Comment on above: IG% - Immature Granu locytes (promyelocytes, myelocytes and metamyelocytes) > 1% indicates that a LEFT SHIFT is Present. MCH (RBC) [Entitic mass] 31.1 pg 27.0-32.0 [facility] Nucleated RBC/100 WBC (Bld) [Ratio] 0 % 0-5 [facility] MCHC Auto (RBC) [Mass/Vol]Or dered By: [facility] on 04-16-2023 MCHC (RBC) [Mass/Vol] 33.7 g/dL 32-36 [facility] No Panel InformationOrdered By: Robby Benitez on 04-16-2023 Estimated Creatinine Clearance Calc 46.50 ml/min [facility] Estimated GFR (MDRD) Amer 67 mL/min >60 [facility] Comment on above: GFR Calc Estimated GFR (MDRD) Non-Af Amer 55 mL/min >60 [facility] Comment on above: Non- GFR Calc No Panel InformationOrdered By: Ángel Be on 04-16-2023 Thyroid Stimulating Hormone (TSH) 3.85 uIU/mL High 0.358-3.74 [facility] Platelets bldOrdered By: Roddy Benitez on 04-16-2023 Platelets (Bld) [#/Vol] 78 10*3/uL 150-450 [facility] Review by pathologistOrdered By: Robby Benitez on 04-16-2023 Pathologist review Tucker (Unsp spec) [Interp] Reviewed [facility] Comment on above: Previous reported re sult: Tanika black Edited by: ODETTE on 04/18/23:1317Neutrophilic leukocytosis with left shift.Normocytic anemia.Mild Thrombocytopenia.Clinical correlation necessary.Aaron Castellon M.D. 04/18/23 AMENDED REPORT 04/18/23 1317 PATH REV previously reported as: Tanika black Serum or plasma calcium valentine urement (mass/volume)Ordered By: Robby Benitez on 04-16-2023 Calcium [Mass/Vol] 9.0 mg/dL 8.5-10.1 [facility] Serum or plasma creatinine m easurement (mass/volume)Ordered By: Robby Benitez on 04-16-2023 Creatinine [Mass/Vol] 1.33 mg/dL 0.70-1.30 [facility] Comment on above: The validity of the calculated GFR & GFRAA in patients over 70 years has not been determined. Clinical correlation is essential. Serum or plasma urea nitroge n measurement (mass/volume)Ordered By: Robby Benitez on 04-16-2023 Urea nitrogen [Mass/Vol] 21 mg/dL 7-18 [facility] Thin prep Papanicolaou smear with manual screeningOrdered By: Robby Benitez on 04-16-2023 Thin prep Papanicolaou smear with manual screening 5 5-15 [facility] Whole blood hemoglobin A1c/t otal hemoglobin ratio (mass fraction)Ordered By: Ángel Be on 04-16-2023 HbA1c (Bld) [Mass fraction] 8.9 % 3.8-5.6 [facility] Comment on above: Normal < 5.7 % Predi abetic 5.7 - 6.4 % Diabetic >or= 6.5 % Please note range changes. Culture, urineOrdered By: Laurel Ross on 04-10-2023 Bacteria identified Cx Nom (U) Culture exhibits no growth. [facility] Absolute lymphocyte countOrd ered By: [facility] on 04-09-2023 Lymphocytes Auto (Unsp spec) [#/Vol] 1.60 10*3/uL 0.83-4.51 [facility] Basophil percentageOrdered B y: Robby Benitez on 04-09-2023 Basophil percentage 3.1 mg/dL 2.5-4.9 [facility] Basophils/100 WBC (Bld) 1.6 % 0-1 [facility] Chloride [Moles/Vol] 105 mmol/L 98-107 [facility] Eosinophils/100 WBC (Bld) 1.6 % 0-5 [facility] Glucose [Mass/Vol] 149 mg/dL 74-106 [facility] Comment on above: Fasting Glucose resu lt greater than or equal to 126 mg/dL suggests DIABETES MELLITUS per A.D.A. criteria. Neutrophils (Bld) [#/Vol] 1.7 10*3/uL 2.0-7.7 [facility] Neutrophils/100 WBC (Bld) 43.3 % 47-70 [facility] Potassium [Moles/Vol] 4.4 mmol/L 3.5-5.1 [facility] Sodium [Moles/Vol] 136 mmol/L 136-145 [facility] WBC (Bld) [#/Vol] 3.8 10*3/uL 4.4-11.0 [facility] Blood erythrocytes count (nu mber/volume)Ordered By: Robby Benitez on 04-09-2023 RBC (Bld) [#/Vol] 3.45 10*6/uL 4.6-6.2 [facility] Blood hemoglobin measurement (mass/volume)Ordered By: Robby Benitez on 04-09-2023 Hemoglobin (Bld) [Mass/Vol] 10.7 g/dL 13.0-16.5 [facility] Blood lymphocytes/100 leukoc ytesOrdered By: [facility] on 04-09-2023 Lymphocytes/100 WBC (Bld) 41.8 % 19-41 [facility] Blood monocytes/100 leukocyt esOrdered By: Robby Benitez on 04-09-2023 Monocytes/100 WBC (Bld) 11.2 % 0-10 [facility] Blood platelet mean volumeOr dered By: [facility] on 04-09-2023 Platelet mean volume (Bld) [Entitic vol] 10.8 fL 6.2-12.0 [facility] Determination of erythrocyte mean corpuscular volume (MCV)Ordered By: [facility] on 04-09-2023 MCV (RBC) [Entitic vol] 93.0 fL 80-94 [facility] Hematocrit Auto (Bld) [Volum e fraction]Ordered By: [facility] on 04-09-2023 Hematocrit (Bld) [Volume fraction] 32.1 % 40-54 [facility] Laboratory - Chemistry and C hemistry - challengeOrdered By: [facility] on 04-09-2023 CO2 [Moles/Vol] 26.0 mmol/L 21.0-32.0 [facility] Magnesium [Mass/Vol] 1.8 mg/dL 1.6-2.6 [facility] Urea nitrogen/Creatinine [Mass ratio] 24.1 mg/mg 10-20 [facility] Laboratory - Hematology and Cell countsOrdered By: [facility] on 04-09-2023 Erythrocyte distribution width (RBC) [Entitic vol] 48.4 fL 35.1-43.9 [facility] Erythrocyte distribution width (RBC) [Ratio] 15.3 % 11.6-14.6 [facility] Immature granulocytes/100 WBC (Bld) 0.500 % 0.0-0.9 [facility] Comment on above: IG% - Immature Granu locytes (promyelocytes, myelocytes and metamyelocytes) > 1% indicates that a LEFT SHIFT is Present. MCH (RBC) [Entitic mass] 31.0 pg 27.0-32.0 [facility] Nucleated RBC/100 WBC (Bld) [Ratio] 0 % 0-5 [facility] MCHC Auto (RBC) [Mass/Vol]Or dered By: Robby Benitez on 04-09-2023 MCHC (RBC) [Mass/Vol] 33.3 g/dL 32-36 [facility] No Panel InformationOrdered By: Robby Benitez on 04-09-2023 Estimated Creatinine Clearance Calc 57.27 ml/min [facility] Estimated GFR (MDRD) Amer 85 mL/min >60 [facility] Comment on above: GFR Calc Estimated GFR (MDRD) Non-Af Amer 70 mL/min >60 [facility] Comment on above: Non- GFR Calc Platelets bldOrdered By: Roddy Benitez on 04-09-2023 Platelets (Bld) [#/Vol] 248 10*3/uL 150-450 [facility] Serum or plasma calcium valentine urement (mass/volume)Ordered By: Robby Benitez on 04-09-2023 Calcium [Mass/Vol] 9.4 mg/dL 8.5-10.1 [facility] Serum or plasma creatinine m easurement (mass/volume)Ordered By: Robby Benitez on 04-09-2023 Creatinine [Mass/Vol] 1.08 mg/dL 0.70-1.30 [facility] Comment on above: The validity of the calculated GFR & GFRAA in patients over 70 years has not been determined. Clinical correlation is essential. Serum or plasma urea nitroge n measurement (mass/volume)Ordered By: Robby Benitez on 04-09-2023 Urea nitrogen [Mass/Vol] 26 mg/dL 7-18 [facility] Thin prep Papanicolaou smear with manual screeningOrdered By: Robby Benitez on 04-09-2023 Thin prep Papanicolaou smear with manual screening 5 5-15 [facility] Basophil percentageOrdered B y: Robby Benitez on 04-06-2023 Basophil percentage 0-5 SEEN /hpf 0-5 [facility] Bilirubin Test strip Ql (U)O rdered By: Robby Benitez on 04-06-2023 Bilirubin Ql (U) Negative Negative [facility] Culture, urineOrdered By: Geovanna Benitez on 04-06-2023 Bacteria identified Cx Nom (U) Culture exhibits no growth. [facility] Ketones Test strip Ql (U)Ord ered By: Robby Benitez on 04-06-2023 Ketones Ql (U) Negative Negative [facility] Mucus LM Ql (Urine sed)Order ed By: Robby Benitez on 04-06-2023 Mucus Ql (Urine sed) 0 SEEN /hpf [facility] Nitrite Test strip Ql (U)Ord ered By: Robby Benitez on 04-06-2023 Nitrite Ql (U) Negative Negative [facility] Protein Test strip Ql (U)Ord ered By: Robby Benitez on 04-06-2023 Protein Ql (U) 100 mg/dl High Negative [facility] Squamous epithelial cells de tection in urine sediment by light microscopyOrdered By: Robby Benitez on 04-06-2023 Epithelial cells.squamous LM Ql (Urine sed) 0-5 SEEN /hpf 0-5 [facility] Urine blood detectionOrdered By: Robby Benitez on 04-06-2023 RBC Ql (U) 25 /ul High Negative [facility] RBC Ql (U) 0-5 SEEN /hpf 0-5 [facility] Urine clarityOrdered By: Roddy Benitez on 04-06-2023 Clarity (U) Clear Clear [facility] Urine color determinationOrd ered By: Robby Benitez on 04-06-2023 Color (U) Yellow Yellow [facility] Urine glucose detectionOrder ed By: Robby Benitez on 04-06-2023 Glucose Ql (U) Normal mg/dl Normal [facility] Urine leukocyte esterase det ection by dipstickOrdered By: Robby Benitez on 04-06-2023 Leukocyte esterase Test strip Ql (U) 25 /ul High Negative [facility] Urine pHOrdered By: Robby Benitez on 04-06-2023 pH (U) 5.0 [pH] 5.0 - 8.0 [facility] Urine sediment bacteria coun t by microscopy (number/high power field)Ordered By: [facility] on 04-06-2023 Bacteria LM.HPF (Urine sed) [#/Area] 1 /[HPF] None Seen [facility] Urine specific gravity measu rementOrdered By: [facility] on 04-06-2023 Specific gravity (U) [Rel density] 1.020 1.002-1.030 [facility] Urobilinogen Auto test strip Ql (U)Ordered By: [facility] on 04-06-2023 Urobilinogen Ql (U) Normal mg/dl Normal [facility] Basophil percentageOrdered B y: [facility] on 04-02-2023 Bilirubin [Mass/Vol] 0.40 mg/dL 0.20-1.00 [facility] Comment on above: For patients on eltr ombopag therapy, use of Dimension [place] TBIL is not recommended. Protein [Mass/Vol] 6.8 g/dL 6.4-8.2 [facility] Laboratory - Chemistry and C hemistry - challengeOrdered By: [facility] on 04-02-2023 ALP [Catalytic activity/Vol] 133 U/L 45-117 [facility] ALT [Catalytic activity/Vol] 36 U/L 16-61 [facility] Globulin (S) [Mass/Vol] 3.0 g/dL 2.2-4.2 [facility] Serum or plasma albumin valentine urement (mass/volume)Ordered By: [facility] on 04-02-2023 Albumin [Mass/Vol] 3.8 g/dL 3.2-5.0 [facility] Serum or plasma albumin/glob ulin mass ratioOrdered By: [facility] on 04-02-2023 Albumin/Globulin [Mass ratio] 1.3 {ratio} 0.9-2.4 [facility] Thin prep Papanicolaou smear with manual screeningOrdered By: [facility] on 04-02-2023 Thin prep Papanicolaou smear with manual screening 20 U/L 15-37 [facility] Blood basophils/100 leukocyt esOrdered By: [facility] on 03-27-2023 Basophils/100 WBC (Bld) 2 % High 0-1 [facility] Blood blasts/100 leukocytesO rdered By: Robby Benitez on 03-27-2023 Blasts/100 WBC (Bld) 1 % Critically high 0-0 [facility] Blood lymphocytes/100 leukoc ytesOrdered By: Robby Benitez on 03-27-2023 Lymphocytes/100 WBC (Bld) 9 % Low 19-41 [facility] Blood monocytes/100 leukocyt esOrdered By: Robby Benitez on 03-27-2023 Monocytes/100 WBC (Bld) 7 % 0-10 [facility] Blood platelet adequacy dete ction by light microscopyOrdered By: Robby Benitez on 03-27-2023 Platelets LM Ql (Bld) MOD DEC ADEQ [facility] Blood segmented neutrophils/ 100 leukocytesOrdered By: Robby Benitez on 03-27-2023 Segmented neutrophils/100 WBC (Bld) 81 % 47-70 [facility] Laboratory - Microbiology an d Antimicrobial susceptibilityOrdered By: Yecenia Wilson on 03-27-2023 Bacteria identified Cx Nom (U) Pseudomonas aeruginosa Abnormal [facility] RBC morphologyOrdered By: Geovanna Benitez on 03-27-2023 RBC morphology finding Nom (Bld) NORM C+C NORMAL NORM C&C [facility] Review by pathologistOrdered By: Robby Benitez on 03-27-2023 Pathologist review Tucker (Unsp spec) [Interp] Reviewed [facility] Comment on above: Previous reported re sult: Tanika black Edited by: RGOOD on 03/29/23:0918Neutrophilic leukocytosis with left shift.Normocytic anemia.Mild Thrombocytopenia.Clinical correlation necessary.Aaron Castellon M.D. 03/29/23 AMENDED REPORT 03/29/23917 PATH REV previously reported as: Tanika black Total cell countOrdered By: Robby Benitez on 03-27-2023 Cells counted Molgen (Bld/Tiss) [#] 100 MANUAL DIFF [facility] Blood band neutrophil count as percentage of total leukocytesOrdered By: Robby Benitez on 03-12-2023 Band form neutrophils/100 WBC (Bld) 3 % 0-5 [facility] Blood eosinophils/100 leukoc ytesOrdered By: Robby Benitez on 03-12-2023 Eosinophils/100 WBC (Bld) 1 % 0-5 [facility] Blood metamyelocytes/100 yuridia kocytesOrdered By: Robby Benitez on 03-12-2023 Metamyelocytes/100 WBC (Bld) 3 % High 0-1 [facility] Glucose Glucometer (BldC) [M ass/Vol]Ordered By: Dr. Gomes on 02-13-2023 Glucose [Mass/Vol] 170 mg/dL 74-106 [facility] Comment on above: MANAGEMENT OF PATIEN T CARE PER NURSING PROTOCOL CYSTOSCOPYon 02-08-2023 Bessy Garcia MD 02/08/2023 1:29 PM CYSTOSCOPY Date/Time: 02/08/2023 12:00 PM Performed by: Bessy Garcia MD Authorized by: Bessy Garcia MD The attending physician was present for the entire procedure. 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 Informed consent was obtained. Does this procedure require a [place] Protocol? Yes. [place] Protocol is required. Procedure: Procedure performed: cystoscopy The patient was placed supine with all pressure points well padded. Patient was prepped and draped in the usual sterile fashion with chlorhexidine. 10 mL of lidocaine 2% topical gel was inserted into urethra for local anesthesia. A penile clamp was not applied. The flexible cystoscope was lubricated and placed into the urethral tract under direct visualization. A 360 survey of the bladder was performed. The cystoscope was reflected and the bladder neck and the ureteral orifices were inspected. The findings are detailed below. The cystoscope was removed following any additional procedures documented below. Findings: The urinary meatus appeared normal. There was not a prominent median lobe. The lateral lobes were not obstructive in appearance. No tumors observed. No bladder fistula present. No foreign bodies observed. No stones found. No trabeculations were found. Both ureteral orifices were normal in size, shape and position with efflux of clear urine. The urethra was inspected. No foreign body(s) present in urethra. No urethral diverticulum observed. No urethral stricture found. Cystoscopy normal Other Cystoscopy Findings: Small right sided bladder diverticulum Post Procedure: Patient tolerated procedure with no immediate complications EBL: no blood loss Procedure Comments: No tumors. I would recommend systemic therapy for his metastatic bladder cancer that is involving the right inguinal lymph node. I specifically recommend cisplatin plus gemcitabine, which is strongly preferred to carboplatin plus gemcitabine. At this point I would lean away from recommending surgical inguinal lymphadenectomy or cystectomy no matter the response to systemic therapy. Return to clinic p.r.n. and return to clinic in 6 months for surveillance cystoscopy [facility] Radiology Study observation (narrative) [facility] Absolute lymphocyte countOrd ered By: Dr. Benitze on 02-01-2023 Lymphocytes Auto (Unsp spec) [#/Vol] 1.91 10*3/uL 0.83-4.51 [facility] Basophil percentageOrdered B y: Dr. Benitez on 02-01-2023 Basophil percentage 2.9 mg/dL 2.5-4.9 [facility] Basophils/100 WBC (Bld) 1.2 % 0-1 [facility] Bilirubin [Mass/Vol] 0.60 mg/dL 0.20-1.00 [facility] Comment on above: For patients on eltr ombopag therapy, use of Dimension [place] TBIL is not recommended. Chloride [Moles/Vol] 107 mmol/L 98-107 [facility] Eosinophils/100 WBC (Bld) 5.0 % 0-5 [facility] Glucose [Mass/Vol] 162 mg/dL 74-106 [facility] Comment on above: Fasting Glucose resu lt greater than or equal to 126 mg/dL suggests DIABETES MELLITUS per A.D.A. criteria. Neutrophils (Bld) [#/Vol] 2.9 10*3/uL 2.0-7.7 [facility] Neutrophils/100 WBC (Bld) 50.7 % 47-70 [facility] Potassium [Moles/Vol] 4.4 mmol/L 3.5-5.1 [facility] Protein [Mass/Vol] 7.5 g/dL 6.4-8.2 [facility] Sodium [Moles/Vol] 138 mmol/L 136-145 [facility] WBC (Bld) [#/Vol] 5.6 10*3/uL 4.4-11.0 [facility] Blood erythrocytes count (nu mber/volume)Ordered By: Dr. Benitez on 02-01-2023 RBC (Bld) [#/Vol] 4.79 10*6/uL 4.6-6.2 [facility] Blood hemoglobin measurement (mass/volume)Ordered By: Dr. Benitez on 02-01-2023 Hemoglobin (Bld) [Mass/Vol] 14.5 g/dL 13.0-16.5 [facility] Blood lymphocytes/100 leukoc ytesOrdered By: Dr. Benitez on 02-01-2023 Lymphocytes/100 WBC (Bld) 34.0 % 19-41 [facility] Blood monocytes/100 leukocyt esOrdered By: Dr. Benitez on 02-01-2023 Monocytes/100 WBC (Bld) 8.7 % 0-10 [facility] Blood platelet mean volumeOr dered By: Dr. Benitez on 02-01-2023 Platelet mean volume (Bld) [Entitic vol] 11.0 fL 6.2-12.0 [facility] Determination of erythrocyte mean corpuscular volume (MCV)Ordered By: Dr. Benitez on 02-01-2023 MCV (RBC) [Entitic vol] 92.1 fL 80-94 [facility] Hematocrit Auto (Bld) [Volum e fraction]Ordered By: Dr. Benitez on 02-01-2023 Hematocrit (Bld) [Volume fraction] 44.1 % 40-54 [facility] Laboratory - Chemistry and C hemistry - challengeOrdered By: Dr. Benitez on 02-01-2023 ALP [Catalytic activity/Vol] 91 U/L 45-117 [facility] ALT [Catalytic activity/Vol] 34 U/L 16-61 [facility] CO2 [Moles/Vol] 27.0 mmol/L 21.0-32.0 [facility] Globulin (S) [Mass/Vol] 3.4 g/dL 2.2-4.2 [facility] Magnesium [Mass/Vol] 2.2 mg/dL 1.6-2.6 [facility] Urea nitrogen/Creatinine [Mass ratio] 15.8 mg/mg 10-20 [facility] Laboratory - Hematology and Cell countsOrdered By: Dr. Benitez on 02-01-2023 Erythrocyte distribution width (RBC) [Entitic vol] 46.3 fL 35.1-43.9 [facility] Erythrocyte distribution width (RBC) [Ratio] 13.5 % 11.6-14.6 [facility] Immature granulocytes/100 WBC (Bld) 0.400 % 0.0-0.9 [facility] Comment on above: IG% - Immature Granu locytes (promyelocytes, myelocytes and metamyelocytes) > 1% indicates that a LEFT SHIFT is Present. MCH (RBC) [Entitic mass] 30.3 pg 27.0-32.0 [facility] Nucleated RBC/100 WBC (Bld) [Ratio] 0 % 0-5 [facility] MCHC Auto (RBC) [Mass/Vol]Or dered By: Dr. Benitez on 02-01-2023 MCHC (RBC) [Mass/Vol] 32.9 g/dL 32-36 [facility] No Panel InformationOrdered By: Dr. Benitez on 02-01-2023 Estimated GFR (MDRD) Amer 92 mL/min >60 [facility] Comment on above: GFR Calc Estimated GFR (MDRD) Non-Af Amer 76 mL/min >60 [facility] Comment on above: Non- GFR Calc Platelets bldOrdered By: Dr. Benitez on 02-01-2023 Platelets (Bld) [#/Vol] 130 10*3/uL 150-450 [facility] Serum or plasma albumin valentine urement (mass/volume)Ordered By: Dr. Benitez on 02-01-2023 Albumin [Mass/Vol] 4.1 g/dL 3.2-5.0 [facility] Serum or plasma albumin/glob ulin mass ratioOrdered By: Dr. Benitez on 02-01-2023 Albumin/Globulin [Mass ratio] 1.2 {ratio} 0.9-2.4 [facility] Serum or plasma calcium valentine urement (mass/volume)Ordered By: Dr. Benitez on 02-01-2023 Calcium [Mass/Vol] 9.5 mg/dL 8.5-10.1 [facility] Serum or plasma creatinine m easurement (mass/volume)Ordered By: Dr. Benitez on 02-01-2023 Creatinine [Mass/Vol] 1.01 mg/dL 0.70-1.30 [facility] Comment on above: The validity of the calculated GFR & GFRAA in patients over 70 years has not been determined. Clinical correlation is essential. Serum or plasma urea nitroge n measurement (mass/volume)Ordered By: Dr. Benitez on 02-01-2023 Urea nitrogen [Mass/Vol] 16 mg/dL 7-18 [facility] Thin prep Papanicolaou smear with manual screeningOrdered By: Dr. Benitez on 02-01-2023 Thin prep Papanicolaou smear with manual screening 20 U/L 15-37 [facility] Thin prep Papanicolaou smear with manual screening 4 5-15 [facility] Basophil percentageOrdered B y: Dr. Ross on 11-29-2022 Creatinine [Mass/Vol] 1.1 mg/dL 0.70-1.30 [facility] No Panel InformationOrdered By: Dr. Ross on 11-29-2022 Bedside Estimated GFR (eGFR) > 60.0000 mL/min >60 [facility] Cytology report of Body flui d Cyto stainon 05-29-2022 Cytology report Cyto stain Doc (Body fld) SEE PATHOLOGY REPORT [facility] Work Phone: Comment on above: Specimen submitted t Anatomical Pathology Department for testing. Cytology report of Body flui d Cyto stainon 02-23-2022 Cytology report Cyto stain Doc (Body fld) SEE PATHOLOGY REPORT [facility] Work Phone: Comment on above: Specimen submitted t Anatomical Pathology Department for testing. CNOVon 08-12-2021 CNOV Office Visit (AKURFL ) DEBO HULL ([id number]) 1945 M Date Time Provider Department 08/12/21 8:30 AM MARIBETH CASSIDY During your visit today, we recorded the following information about you: Weight Height 90.7 kg 1.778 m Maribeth Cassidy, 08/12/2021 9:09 AM Signed ?? [facility] [place] [facility] LOCATION: [address] [place] [address] NEW CONSULT VISIT PATIENT INFO: Debo Hull 76 year old PCP: Matteo Rebollar MD Consultation requested by Dr. Skyler Ross and my final recommendations will be communicated back to the requesting physician by way of shared medical record or letter via US mail. Chief Complaint: Gross hematuria/bladder cancer HPI Had GH, in May, had cysto with Dr. PENNINGTON, - found bladder tumor. June 22 2021. HG T1 was found. He was going to get set up for BCG. Now with severe LUTS. CT scan done, bladder wall thickening. Repeat urine cytology - positive after TURBT. Scheduled for TURBT re-resection Aug [address] Ross. Here with . 1-Duration: 2020 2-Location: bladder 3-Severity: N/A 4-Quality: Not applicable 5-Context: N/A 6-Timing: N/A 7-Modifying factors: No treatment prior to referral 8-Associated signs AND symptoms: no additional symptoms No question data found. PATHOLOGY: N/A LAB: WBC (k/uL) Date Value 06/01/2021 7.05 RBC (m/uL) Date Value 06/01/2021 4.73 Hemoglobin (g/dL) Date Value 06/01/2021 14.7 Hematocrit (%) Date Value 06/01/2021 45.4 MCV (fL) Date Value 06/01/2021 96.0 MCH (pG) Date Value 06/01/2021 31.1 MCHC (g/dL) Date Value 06/01/2021 32.4 RDW-CV (%) Date Value 06/01/2021 13.3 Platelet Count (k/uL) Date Value 06/01/2021 136 (L) MPV (fL) Date Value 06/01/2021 12.8 (H) Creatinine Date Value Ref Range Status 06/01/2021 1.05 0.73 - 1.22 mg/dL Final 03/10/2020 0.92 0.73 - 1.22 mg/dL Final 05/03/2019 0.98 0.73 - 1.22 mg/dL Final 02/07/2019 0.98 0.73 - 1.22 mg/dL Final PSA (ng/mL) Date Value 05/12/2015 0.08 03/05/2013 0.13 12/21/2011 0.26 08/24/2008 0.63 URINE POC GLUCOSE UA (POCT) Negative 06/07/2021 BILIRUBIN UA (POCT) Small 06/07/2021 KETONE UA (POCT) Negative 06/07/2021 SPECIFIC GRAVITY UA (POCT) 1.015 06/07/2021 HEMOGLOBIN/BLOOD UA (POCT) Large 06/07/2021 PH UA (POCT) 5.5 06/07/2021 PROTEIN UA (POCT) >=300 06/07/2021 UROBILINOGEN UA (POCT) 0.2 06/07/2021 NITRITE UA (POCT) Negative 06/07/2021 LEUKOCYTES UA (POCT) Negative 06/07/2021 COLOR UA (POCT) Red 06/07/2021 CLARITY UA (POCT) Cloudy 06/07/2021 IMAGING: CT Scan: report scanned No imaging to review. ALLERGIES: ALLERGIES Allergen Reactions - Metformin Diarrhea, GI Upset Tried 2 doses and had adverse effects each time - Seasonal Allergies Cough hayfever MEDICATIONS: levothyroxine (SYNTHROID) 125 mcg tablet Take 1 tablet by mouth once daily. sertraline (ZOLOFT) 50 mg tablet Take 1 tablet by mouth once daily. tamsulosin (FLOMAX) 0.4 mg Take 1 capsule by mouth once daily. atorvastatin (LIPITOR) 20 mg tablet Take 1 tablet by mouth once daily. Please note dose change. Do not cut tablet in half. albuterol HFA (VENTOLIN HFA) 90 mcg/actuation inhaler Inhale 2 Puffs as instructed every 4 hours as needed for wheezing/shortness of breath. Patient requests Relion brand 60 puffs for $9 blood sugar diagnostic (BLOOD GLUCOSE TEST) test strip Test blood sugar(s) once daily and as needed. Dx: controlled type 2 diabetes without complication. Insulin: no sildenafil (VIAGRA) 100 mg tablet Take half to whole pill as directed prior to intercourse. Lancets lancets Test blood sugar(s) once daily an as needed. Dx: controlled type 2 diabetes without complication. Insulin: no finasteride (PROSCAR) 5 mg tablet Take 1 tablet by mouth once daily. Does the patient take any herbal medications?: No Medication list reviewed and reconciled with patient: Yes HISTORIES PAST MEDICAL HISTORY Diagnosis Date - Actinic skin damage 02/18/2012 - BPH w urinary obs/LUTS 07/05/2011 - Cough variant asthma 12/10/2013 - Depression - Diverticulosis of colon (without mention of hemorrhage) - Family history of malignant neoplasm of gastrointestinal tract family history of colon cancer; due for colonoscopy 2016 (last done 2011 and 2005) - Frozen shoulder Dr. Slaughter managing; started around Jun 2013 - Hypothyroidism - Internal hemorrhoids without mention of complication - Multinodular goiter 05/21/2012 - PURE HYPERCHOLESTEROLEM 02/13/2006 - Shingles ~2001 PAST SURGICAL HISTORY Procedure Laterality Date - COLONOSCOP W/ OR W/O BRSH SPEC 07/06/06 - COLONOSCOP W/ OR W/O BRSH SPEC 11/30/11 repeat 5 years - FNA WITH IMAGING 04/10/12 U/S FNA right thyroid nodule - INT REPAIR SCALP,OMAR,TRUNK <2.5CM --12 - REM LESIO TRUNK,ARM,LEG 1.1 -2.0CM 9-- (more content not included)... Normal [facility] .GFRon 07-29-2021 GFR 98 ml/min/1.73sqm Normal [facility] ([place]) Comment on above: Result Comment: GFR Population mean for , Non- Americans Ages 20-29 = 116 mL/min/1.73 sq.m. Ages 30-39 = 107 mL/min/1.73 sq.m. Ages 40-49 = 99 mL/min/1.73 sq.m. Ages 50-59 = 93 mL/min/1.73 sq.m. Ages 60-69 = 85 mL/min/1.73 sq.m. Ages 70+ = 75 mL/min/1.73 sq.m. Chronic Kidney Disease: Less than 60 mL/min/1.73 square meters End Stage Renal Disease: Less than 15 mL/min/1.73 square meters Performed By: #### C RE, GFR #### [address] [address] GFR Non- 81 ml/min/1.73sqm Normal [facility] ([place]) Comment on above: Result Comment: GFR Population mean for , Non- Americans Ages 20-29 = 116 mL/min/1.73 sq.m. Ages 30-39 = 107 mL/min/1.73 sq.m. Ages 40-49 = 99 mL/min/1.73 sq.m. Ages 50-59 = 93 mL/min/1.73 sq.m. Ages 60-69 = 85 mL/min/1.73 sq.m. Ages 70+ = 75 mL/min/1.73 sq.m. Chronic Kidney Disease: Less than 60 mL/min/1.73 square meters End Stage Renal Disease: Less than 15 mL/min/1.73 square meters Performed By: #### C RE, GFR #### [address] [address] CREon 07-29-2021 Creatinine [Mass/Vol] 0.91 mg/dL Normal 0.70-1.30 [facility] ([place]) Comment on above: Performed By: #### C RE, GFR #### [address] [address] [address] ABDOMEN/PELVIS W/CONTRAST on 07-29-2021 CT ABDOMEN/PELVIS W/CONTRAST ORIGINAL EXAMINATION: CT OF THE ABDOMEN AND PELVIS WITH DUIOSORZ58/19/2021 9:48 am TECHNIQUE: CT of the abdomen and pelvis was performed with the administration of intravenous contrast. Multiplanar reformatted images are provided for review. Dose modulation, iterative reconstruction, and/or weight based adjustment of the mA/kV was utilized to reduce the radiation dose to as low as reasonably achievable. COMPARISON: None HISTORY: ORDERING SYSTEM PROVIDED HISTORY: Reason for Exam: GROSS HEMATURIA FINDINGS: There are scattered liver cysts. The liver is otherwise unremarkable. The gallbladder, pancreas, spleen, and bilateral adrenal glands are unremarkable. Coarse perinephric stranding is noted. There is a punctate left renal calculus at the upper pole. The kidneys are otherwise unremarkable with no obstructive uropathy. The ureters are unremarkable. The visualized esophagus, stomach, and duodenum are unremarkable. No abdominal aortic aneurysm. Minimal abdominal aortic atherosclerosis. The small bowel and colon no acute abnormalities. No obstruction. The appendix is within normal limits. Seen on series 2 images 48 through 68 there is a focal area mesenteric haziness with scattered nonenlarged lymph nodes in close proximity. No obvious mass effect. No lymphadenopathy. No free intraperitoneal air or fluid. The urinary bladder wall is markedly thickened with perivesical fat stranding. The prostate is grossly unremarkable. There are bilateral fat containing inguinal hernias. No suspicious or acute osseous lesions are identified. Provided images of the lower thorax are unremarkable. IMPRESSION: Marked urinary bladder wall thickening with perivesical stranding most likely reflects (chronic) cystitis, potentially with an element of chronic outlet obstruction due to BPH. However, an underlying mucosal neoplasm cannot be excluded. Recommend urinalysis and cystoscopy for further evaluation. Punctate nonobstructing left renal calculus. 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 I have personally reviewed the images of this examination and agree with the resident's findings and interpretation. Interpreted by: See Leblanc MD Preliminary Report By: Myles Willis Electronically signed By See Leblanc MD Dictated Date: 07/29/2021 10:13:31 AM Prelim Date: 07/29/2021 11:08:57 AM Sign Date: 07/29/2021 11:08:57 AM Ordering Provider: TEO ROSS [facility] ([place]) LABORATORYOrdered By: Melchor Rosa on 07-29-2021 Creatinine [Mass/Vol] 0.91 mg/dL Invalid Interpretation Code 0.70 - 1.30 mg/dL AO ADM SS LABORATORYOrdered By: SYSTEM SYSTEM on 07-29-2021 GFR 98 ml/min/1.73sqm Invalid Interpretation Code AO Chemistry S GFR Non- 81 ml/min/1.73sqm Inval id Interpretation Code AO Chemistry S Culture, urine Bacteria identified Cx Nom (U) Enterococcus faecalis [facility] Work Phone: Vital Signs Date Time Vital Sign Value Performing Clinician Shalini hand 06-01-2025 09:10-0400 Body height 177.[address] Matteo Rebollar MD Work Phone: 3(866)371-729565 [place] [address] 06-01-2025 09:10-0400 Body mass index (BMI) [Ratio] 29.2 kg/m2 Dr. Matteo Rebollar MD Work Phone: 6(467)893-380065 [place] [address] 06-01-2025 09:10-0400 Body temperature 97.6 [degF] Dr. Matteo Rebollar MD Work Phone: 8(214)494-628865 [place] [address] 06-01-2025 09:10-0400 Body weight 92.[address] Matteo Rebollar MD Work Phone: 4(372)523-999265 [place] [address] 06-01-2025 09:10-0400 Diastolic blood pressure 66 mm[Hg] Dr. Matteo Rebollar MD Work Phone: 3(400)510-215465 [place] [address] 06-01-2025 09:10-0400 Heart rate 71 /min Dr. Matteo Rebollar MD Work Phone: 6(117)805-272265 [place] [address] 06-01-2025 09:10-0400 Respiratory rate 18 /min Dr. Matteo Rebollar MD Work Phone: 5(923)203-567065 [place] [address] 06-01-2025 09:10-0400 SaO2% (BldA) [Mass fraction] 98 % Dr. Matteo Rebollar MD Work Phone: 5(724)476-628765 [place] [address] 06-01-2025 09:10-0400 Systolic blood pressure 113 mm[Hg] Dr. Matteo Rebollar MD Work Phone: 3(005)919-783165 [place] [address] 04-02-2025 10:45-0400 Body height 177.8 cm Bessy Garcia MD Work Phone: [facility] 04-02-2025 10:45-0400 Body mass index (BMI) [Ratio] 28.52 kg/m2 Bessy Garcia MD Work Phone: [facility] 04-02-2025 10:45-0400 Body temperature 97.39 [degF] Bessy Garcia MD Work Phone: [facility] 04-02-2025 10:45-0400 Body weight 90.17 kg Bessy Garcia MD Work Phone: [facility] 04-02-2025 10:45-0400 Diastolic blood pressure 71 mm[Hg] Bessy Garcia MD Work Phone: [facility] 04-02-2025 10:45-0400 Heart rate 81 /min Bessy Garcia MD Work Phone: [facility] 04-02-2025 10:45-0400 Respiratory rate 16 /min Bessy Garcia MD Work Phone: [facility] 04-02-2025 10:45-0400 SaO2% (BldA) [Mass fraction] 97 % Bessy Garcia MD Work Phone: [facility] 04-02-2025 10:45-0400 Systolic blood pressure 114 mm[Hg] Bessy Garcia MD Work Phone: [facility] 03-17-2025 08:57-0400 Body height 177.[address] Matteo Rebollar MD Work Phone: [facility] 03-17-2025 08:57-0400 Body mass index (BMI) [Ratio] 28.3 kg/m2 Dr. Matteo Rebollar MD Work Phone: [facility] 03-17-2025 08:57-0400 Body weight 89.[address] Matteo Rebollar MD Work Phone: [facility] 03-17-2025 08:57-0400 Diastolic blood pressure 74 mm[Hg] Dr. Matteo Rebollar MD Work Phone: [facility] 03-17-2025 08:57-0400 Heart rate 71 /min Dr. Matteo Rebollar MD Work Phone: 3(534)537-439465 [place] [address] 03-17-2025 08:57-0400 Respiratory rate 16 /min Dr. Matteo Rebollar MD Work Phone: 6(892)168-755765 [place] [address] 03-17-2025 08:57-0400 SaO2% (BldA) [Mass fraction] 97 % Dr. Matteo Rebollar MD Work Phone: 2(108)004-035465 [place] [address] 03-17-2025 08:57-0400 Systolic blood pressure 117 mm[Hg] Dr. Matteo Rebollar MD Work Phone: 5(070)377-380065 [place] [address] 03-05-2025 13:31-0400 Body height 177.[address] Matteo Rebollar MD Work Phone: 7(895)813-926665 [place] [address] 03-05-2025 13:31-0400 Body mass index (BMI) [Ratio] 28.1 kg/m2 Dr. Matteo Rebollar MD Work Phone: 7(843)336-811565 [place] [address] 03-05-2025 13:31-0400 Body temperature 97.8 [degF] Dr. Matteo Rebollar MD Work Phone: 6(526)686-028365 [place] [address] 03-05-2025 13:31-0400 Body weight 88.[address] Matteo Rebollar MD Work Phone: 2(495)416-934565 [place] [address] 03-05-2025 13:31-0400 Diastolic blood pressure 72 mm[Hg] Dr. Matteo Rebollar MD Work Phone: 3(527)975-591665 [place] [address] 03-05-2025 13:31-0400 Heart rate 86 /min Dr. Matteo Rebollar MD Work Phone: 2(294)558-430565 [place] [address] 03-05-2025 13:31-0400 Respiratory rate 18 /min Dr. Matteo Rebollar MD Work Phone: 1(544)894-281865 [place] [address] 03-05-2025 13:31-0400 SaO2% (BldA) [Mass fraction] 95 % Dr. Matteo Rebollar MD Work Phone: 7(053)726-331465 [place] [address] 03-05-2025 13:31-0400 Systolic blood pressure 110 mm[Hg] Dr. Matteo Rebollar MD Work Phone: 3(364)249-721265 [place] [address] 02-16-2025 09:50-0400 Body temperature 96 [degF] Dr. Matteo Rebollar MD Work Phone: 1(431)946-335665 [place] [address] 02-16-2025 09:50-0400 Diastolic blood pressure 65 mm[Hg] Dr. Matteo Rebollar MD Work Phone: 0(139)421-901465 [place] [address] 02-16-2025 09:50-0400 Heart rate 64 /min Dr. Matteo Rebollar MD Work Phone: 9(799)641-835165 [place] [address] 02-16-2025 09:50-0400 Respiratory rate 16 /min Dr. Matteo Rebollar MD Work Phone: 8(978)619-107065 [place] [address] 02-16-2025 09:50-0400 Systolic blood pressure 107 mm[Hg] Dr. Matteo Rebollar MD Work Phone: 4(471)096-106165 [place] [address] 02-16-2025 08:57-0400 Body height 177.[address] Matteo Rebollar MD Work Phone: 5(688)420-375765 [place] [address] 02-16-2025 08:57-0400 Body mass index (BMI) [Ratio] 28.7 kg/m2 Dr. Matteo Rebollar MD Work Phone: 0(243)120-860565 [place] [address] 02-16-2025 08:57-0400 Body weight 90.[address] Matteo Rebollar MD Work Phone: 8(585)365-912265 [place] [address] 02-16-2025 08:57-0400 SaO2% (BldA) [Mass fraction] 99 % Dr. Matteo Rebollar MD Work Phone: 6(232)491-631365 [place] [address] 02-13-2025 07:26-0400 Body mass index (BMI) [Ratio] 30.06 kg/m2 Dixon Rosen APRN.CNP Work Phone: 0(646)917-190023 [place] [address] 02-13-2025 07:26-0400 Body weight 91 kg Dixon Antoine [employer]PER[employer].COUNSEL Work Phone: [facility] 02-13-2025 07:26-0400 Diastolic blood pressure 68 mm[Hg] Dixon Antoine [employer]ODUCTION SUPERVISOR.COUNSEL Work Phone: [facility] 02-13-2025 07:26-0400 Heart rate 76 /min Dixon Antoine [employer]ODUCTION SUPERVISOR.COUNSEL Work Phone: [facility] 02-13-2025 07:26-0400 Respiratory rate 12 /min Dixon Antoine [employer]ODUCTION SUPERVISOR.COUNSEL Work Phone: [facility] 02-13-2025 07:26-0400 Systolic blood pressure 120 mm[Hg] Dixon Antoine [employer]ODUCTION SUPERVISOR.COUNSEL Work Phone: [facility] 12-01-2024 09:07-0400 Body mass index (BMI) [Ratio] 28.8 kg/m2 Dr. Matteo Rebollar MD Work Phone: [facility] 12-01-2024 09:07-0400 Body temperature 97.4 [degF] Dr. Matteo Rebollar MD Work Phone: [facility] 12-01-2024 09:07-0400 Body weight 91.[address] Matteo Rebollar MD Work Phone: [facility] 12-01-2024 09:07-0400 Diastolic blood pressure 73 mm[Hg] Dr. Matteo Rebollar MD Work Phone: [facility] 12-01-2024 09:07-0400 Heart rate 88 /min Dr. Matteo Rebollar MD Work Phone: [facility] 12-01-2024 09:07-0400 Respiratory rate 18 /min Dr. Matteo Rebollar MD Work Phone: [facility] 12-01-2024 09:07-0400 SaO2% (BldA) [Mass fraction] 98 % Dr. Matteo Rebollar MD Work Phone: [facility] 12-01-2024 09:07-0400 Systolic blood pressure 108 mm[Hg] Dr. Matteo Rebollar MD Work Phone: [facility] 11-19-2024 07:43-0400 Body mass index (BMI) [Ratio] 30.78 kg/m2 Dixon Antoine [employer]OUN[employer] Work Phone: [facility] 11-19-2024 07:43-0400 Body weight 93.2 kg Dixon Antoine [employer] SUPER[employer]COUNSEL Work Phone: [facility] 11-19-2024 07:43-0400 Diastolic blood pressure 66 mm[Hg] Dixon Antoine [employer] SUPER[employer]COUNSEL Work Phone: [facility] 11-19-2024 07:43-0400 Heart rate 70 /min Dixon Antoine [employer] SUPER[employer]COUNSEL Work Phone: [facility] 11-19-2024 07:43-0400 SaO2% (BldA) [Mass fraction] 98 % Dixon Antoine [employer] SUPER[employer].COUNSEL Work Phone: [facility] 11-19-2024 07:43-0400 Systolic blood pressure 105 mm[Hg] Dixon Antoine [employer] SUPER[employer].COUNSEL Work Phone: [facility] 08-11-2024 08:51-0500 Body height 174 cm Matteo Rebollar MD Work Phone: [facility] 08-11-2024 08:51-0500 Body mass index (BMI) [Ratio] 30.92 kg/m2 Matteo Rebollar MD Work Phone: [facility] 08-11-2024 08:51-0500 Body temperature 96.49 [degF] Matteo Rebollar MD Work Phone: [facility] 08-11-2024 08:51-0500 Body weight 93.6 kg Matteo Rebollar MD Work Phone: [facility] 08-11-2024 08:51-0500 Diastolic blood pressure 62 mm[Hg] Matteo Rebollar MD Work Phone: [facility] 08-11-2024 08:51-0500 Heart rate 64 /min Matteo Rebollar MD Work Phone: [facility] 08-11-2024 08:51-0500 Respiratory rate 16 /min Matteo Rebollar MD Work Phone: [facility] 08-11-2024 08:51-0500 SaO2% (BldA) [Mass fraction] 98 % Matteo Rebollar MD Work Phone: [facility] 08-11-2024 08:51-0500 Systolic blood pressure 106 mm[Hg] Matteo Rebollar MD Work Phone: [facility] 06-10-2024 11:26-0400 Body mass index (BMI) [Ratio] 30.29 kg/m2 Matteo Rebollar MD Work Phone: [facility] 06-10-2024 11:26-0400 Body temperature 96.8 [degF] Matteo Rebollar MD Work Phone: [facility] 06-10-2024 11:26-0400 Body weight 91.7 kg Matteo Rebollar MD Work Phone: [facility] 06-10-2024 11:26-0400 Diastolic blood pressure 62 mm[Hg] Matteo Rebollar MD Work Phone: [facility] 06-10-2024 11:26-0400 Heart rate 64 /min Matteo Rebollar MD Work Phone: [facility] 06-10-2024 11:26-0400 Respiratory rate 16 /min Matteo Rebollar MD Work Phone: [facility] 06-10-2024 11:26-0400 SaO2% (BldA) [Mass fraction] 98 % Matteo Rebollar MD Work Phone: [facility] 06-10-2024 11:26-0400 Systolic blood pressure 106 mm[Hg] Matteo Rebollar MD Work Phone: [facility] 04-03-2024 09:55-0400 Body height 177.8 cm Bessy Garcia MD Work Phone: [facility] 04-03-2024 09:55-0400 Body mass index (BMI) [Ratio] 28.34 kg/m2 Bessy Garcia MD Work Phone: [facility] 04-03-2024 09:55-0400 Body temperature 97.81 [degF] Bessy Garcia MD Work Phone: [facility] 04-03-2024 09:55-0400 Body weight 89.58 kg Bessy Garcia MD Work Phone: [facility] 04-03-2024 09:55-0400 Diastolic blood pressure 61 mm[Hg] Bessy Garcia MD Work Phone: [facility] 04-03-2024 09:55-0400 Heart rate 83 /min Bessy Garcia MD Work Phone: [facility] 04-03-2024 09:55-0400 Respiratory rate 18 /min Bessy Garcia MD Work Phone: [facility] 04-03-2024 09:55-0400 SaO2% (BldA) [Mass fraction] 96 % Bessy Garcia MD Work Phone: [facility] 04-03-2024 09:55-0400 Systolic blood pressure 111 mm[Hg] Bessy Garcia MD Work Phone: [facility] 03-17-2024 14:18-0400 Body mass index (BMI) [Ratio] 29.3 kg/m2 Raoul Cash MD Work Phone: [facility] 03-17-2024 14:18-0400 Body temperature 97.11 [degF] Raoul Cash MD Work Phone: [facility] 03-17-2024 14:18-0400 Body weight 88.7 kg Raoul Cash MD Work Phone: [facility] 03-17-2024 14:18-0400 Diastolic blood pressure 64 mm[Hg] Raoul Cash MD Work Phone: [facility] 03-17-2024 14:18-0400 Heart rate 84 /min Raoul Cash MD Work Phone: [facility] 03-17-2024 14:18-0400 Respiratory rate 16 /min Raoul Cash MD Work Phone: [facility] 03-17-2024 14:18-0400 SaO2% (BldA) [Mass fraction] 97 % Raoul Cash MD Work Phone: [facility] 03-17-2024 14:18-0400 Systolic blood pressure 110 mm[Hg] Raoul Cash MD Work Phone: [facility] 02-05-2024 08:26-0400 Body mass index (BMI) [Ratio] 29.07 kg/m2 Dixon Antoine [employer] SUPER[employer]OR.COUNSEL Work Phone: [facility] 02-05-2024 08:26-0400 Body weight 88 kg Dixon Antoine [employer]ODUCTION SUPERVISOR.COUNSEL Work Phone: [facility] 02-05-2024 08:26-0400 Diastolic blood pressure 66 mm[Hg] Dixon Antoine [employer] SUPER[employer]COUNSEL Work Phone: [facility] 02-05-2024 08:26-0400 Heart rate 71 /min Dixon Antoine [employer] SUPER[employer]OR.COUNSEL Work Phone: [facility] 02-05-2024 08:26-0400 SaO2% (BldA) [Mass fraction] 98 % Dixon Antoine [employer] SUPERVISOR.COUNSEL Work Phone: [facility] 02-05-2024 08:26-0400 Systolic blood pressure 110 mm[Hg] Dixon Antoine [employer] SUPER[employer].COUNSEL Work Phone: [facility] 08-07-2023 08:16-0500 Body temperature 99.1 [degF] Matteo Rebollar MD Work Phone: [facility] 08-07-2023 08:16-0500 Body weight 82.1 kg Matteo Rebollar MD Work Phone: [facility] 08-07-2023 08:16-0500 Diastolic blood pressure 70 mm[Hg] Matteo Rebollar MD Work Phone: [facility] 08-07-2023 08:16-0500 Heart rate 70 /min Matteo Rebollar MD Work Phone: [facility] 08-07-2023 08:16-0500 Respiratory rate 18 /min Matteo Rebollar MD Work Phone: [facility] 08-07-2023 08:16-0500 SaO2% (BldA) [Mass fraction] 99 % Matteo Rebollar MD Work Phone: [facility] 08-07-2023 08:16-0500 Systolic blood pressure 106 mm[Hg] Matteo Rebollar MD Work Phone: [facility] 07-02-2023 09:00-0400 Body height 177.[address] Matteo Rebollar Work Phone: 0(601)816-875861 [place] [address] 07-02-2023 09:00-0400 Body mass index (BMI) [Ratio] 26 kg/m2 Dr. Matteo Rebollar Work Phone: 4(022)989-705965 [place] [address] 07-02-2023 09:00-0400 Body temperature 98 [degF] Dr. Matteo Rebollar Work Phone: [facility] 07-02-2023 09:00-0400 Body weight 82.[address] Matteo Rebollar Work Phone: 5(795)506-272061 [place] [address] 07-02-2023 09:00-0400 Diastolic blood pressure 72 mm[Hg] Dr. Matteo Rebollar Work Phone: [facility] 07-02-2023 09:00-0400 Heart rate 67 /min Dr. Matteo Rebollar Work Phone: 2(572)488-736361 [place] [address] 07-02-2023 09:00-0400 Respiratory rate 18 /min Dr. Matteo Rebollar Work Phone: 3(330)461-899165 [place] [address] 07-02-2023 09:00-0400 SaO2% (BldA) [Mass fraction] 100 % Dr. Matteo Rebollar Work Phone: 8(008)530-594765 [place] [address] 07-02-2023 09:00-0400 Systolic blood pressure 138 mm[Hg] Dr. Matteo Rebollar Work Phone: 7(270)581-565865 [place] [address] 06-29-2023 10:37-0400 Diastolic blood pressure 60 mm[Hg] Dr. Matteo Rebollar Work Phone: 2(974)793-442865 [place] [address] 06-29-2023 10:37-0400 Heart rate 68 /min Dr. Matteo Rebollar Work Phone: 5(801)448-122565 [place] [address] 06-29-2023 10:37-0400 Respiratory rate 16 /min Dr. Matteo Rebollar Work Phone: 5(286)881-612465 [place] [address] 06-29-2023 10:37-0400 SaO2% (BldA) [Mass fraction] 100 % Dr. Matteo Rebollar Work Phone: 7(288)757-236665 [place] [address] 06-29-2023 10:37-0400 Systolic blood pressure 128 mm[Hg] Dr. Matteo Rebollar Work Phone: 8(351)808-961865 [place] [address] 06-29-2023 08:24-0400 Body temperature 97.4 [degF] Dr. Matteo Rebollar Work Phone: 8(806)261-503565 [place] [address] 06-28-2023 13:02-0400 Body mass index (BMI) [Ratio] 25.8 kg/m2 Dr. Matteo Rebollar Work Phone: 5(184)052-660065 [place] [address] 06-28-2023 13:02-0400 Body temperature 98.6 [degF] Dr. Matteo Rebollar Work Phone: 3(391)631-974865 [place] [address] 06-28-2023 13:02-0400 Body weight 81.[address] Matteo Rebollar Work Phone: 4(689)417-028165 [place] [address] 06-28-2023 13:02-0400 Diastolic blood pressure 70 mm[Hg] Dr. Matteo Rebollar Work Phone: 3(088)023-198065 [place] [address] 06-28-2023 13:02-0400 Heart rate 78 /min Dr. Matteo Rebollar Work Phone: 7(930)549-474565 [place] [address] 06-28-2023 13:02-0400 Respiratory rate 18 /min Dr. Matteo Rebollar Work Phone: 4(138)091-167265 [place] [address] 06-28-2023 13:02-0400 SaO2% (BldA) [Mass fraction] 99 % Dr. Matteo Rebollar Work Phone: 0(457)481-765065 [place] [address] 06-28-2023 13:02-0400 Systolic blood pressure 115 mm[Hg] Dr. Matteo Rebollar Work Phone: 7(276)394-902165 [place] [address] 06-25-2023 09:53-0400 Body mass index (BMI) [Ratio] 26.4 kg/m2 Dr. Matteo Rebollar Work Phone: 4(434)452-407165 [place] [address] 06-25-2023 09:53-0400 Body temperature 98.7 [degF] Dr. Matteo Rebollar Work Phone: 9(372)777-812765 [place] [address] 06-25-2023 09:53-0400 Body weight 83.[address] Matteo Rebollar Work Phone: 3(377)207-460265 [place] [address] 06-25-2023 09:53-0400 Diastolic blood pressure 64 mm[Hg] Dr. Matteo Rebollar Work Phone: 4(924)711-963265 [place] [address] 06-25-2023 09:53-0400 Heart rate 62 /min Dr. Matteo Rebollar Work Phone: 1(054)029-395565 [place] [address] 06-25-2023 09:53-0400 Respiratory rate 18 /min Dr. Matteo Rebollar Work Phone: 8(721)006-898565 [place] [address] 06-25-2023 09:53-0400 SaO2% (BldA) [Mass fraction] 97 % Dr. Matteo Rebollar Work Phone: 2(409)171-632365 [place] [address] 06-25-2023 09:53-0400 Systolic blood pressure 123 mm[Hg] Dr. Matteo Rebollar Work Phone: 7(414)654-693465 [place] [address] 06-22-2023 08:04-0400 Body mass index (BMI) [Ratio] 26.6 kg/m2 Dr. Matteo Rebollar Work Phone: 1(981)248-998865 [place] [address] 06-18-2023 10:20-0400 Body mass index (BMI) [Ratio] 26.6 kg/m2 Dr. Matteo Rebollar Work Phone: 0(606)323-628665 [place] [address] 06-18-2023 10:20-0400 Body temperature 97.6 [degF] Dr. Matteo Rebollar Work Phone: 9(832)144-281065 [place] [address] 06-18-2023 10:20-0400 Body weight 84.[address] Matteo Rebollar Work Phone: 6(075)342-548965 [place] [address] 06-18-2023 10:20-0400 Diastolic blood pressure 64 mm[Hg] Dr. Matteo Rebollar Work Phone: 7(523)243-803365 [place] [address] 06-18-2023 10:20-0400 Heart rate 63 /min Dr. Matteo Rebollar Work Phone: 7(993)400-613765 [place] [address] 06-18-2023 10:20-0400 Respiratory rate 16 /min Dr. Matteo Rebollar Work Phone: 5(103)253-606665 [place] [address] 06-18-2023 10:20-0400 SaO2% (BldA) [Mass fraction] 100 % Dr. Matteo Rebollar Work Phone: 5(433)431-281465 [place] [address] 06-18-2023 10:20-0400 Systolic blood pressure 118 mm[Hg] Dr. Matteo Rebollar Work Phone: 1(191)547-722665 [place] [address] 06-18-2023 08:58-0400 Body mass index (BMI) [Ratio] 26.6 kg/m2 Dr. Matteo Rebollar Work Phone: 6(283)858-500665 [place] [address] 06-18-2023 08:58-0400 Body temperature 98.2 [degF] Dr. Matteo Rebollar Work Phone: 4(904)711-914965 [place] [address] 06-18-2023 08:58-0400 Body weight 84.[address] Matteo Rebollar Work Phone: 9(491)499-035865 [place] [address] 06-18-2023 08:58-0400 Diastolic blood pressure 69 mm[Hg] Dr. Matteo Rebollar Work Phone: 2(977)348-000765 [place] [address] 06-18-2023 08:58-0400 Heart rate 64 /min Dr. Matteo Rebollar Work Phone: 5(617)445-017365 [place] [address] 06-18-2023 08:58-0400 Respiratory rate 16 /min Dr. Matteo Rebollar Work Phone: 0(145)964-118065 [place] [address] 06-18-2023 08:58-0400 SaO2% (BldA) [Mass fraction] 97 % Dr. Matteo Rebollar Work Phone: 3(555)731-044465 [place] [address] 06-18-2023 08:58-0400 Systolic blood pressure 122 mm[Hg] Dr. Matteo Rebollar Work Phone: 4(748)218-114165 [place] [address] 06-11-2023 08:25-0400 Body mass index (BMI) [Ratio] 26.3 kg/m2 Dr. Matteo Rebollar Work Phone: 5(211)110-218965 [place] [address] 06-11-2023 08:25-0400 Body temperature 97.9 [degF] Dr. Matteo Rebollar Work Phone: 0(689)005-020265 [place] [address] 06-11-2023 08:25-0400 Body weight 83.[address] Matteo Rebollar Work Phone: 0(021)527-633965 [place] [address] 06-11-2023 08:25-0400 Diastolic blood pressure 66 mm[Hg] Dr. Matteo Rebollar Work Phone: 5(020)789-376765 [place] [address] 06-11-2023 08:25-0400 Heart rate 59 /min Dr. Matteo Rebollar Work Phone: 2(789)140-873865 [place] [address] 06-11-2023 08:25-0400 Respiratory rate 16 /min Dr. Matteo Rebollar Work Phone: 1(275)443-982765 [place] [address] 06-11-2023 08:25-0400 SaO2% (BldA) [Mass fraction] 97 % Dr. Matteo Rebollar Work Phone: 4(059)000-530565 [place] [address] 06-11-2023 08:25-0400 Systolic blood pressure 111 mm[Hg] Dr. Matteo Rebollar Work Phone: 8(698)934-194565 [place] [address] 06-04-2023 08:43-0400 Body mass index (BMI) [Ratio] 26.8 kg/m2 Dr. Matteo Rebollar Work Phone: 0(155)808-962065 [place] [address] 06-04-2023 08:43-0400 Body temperature 97 [degF] Dr. Matteo Rebollar Work Phone: 8(331)681-054465 [place] [address] 06-04-2023 08:43-0400 Body weight 84.[address] Matteo Rebollar Work Phone: 4(061)066-578265 [place] [address] 06-04-2023 08:43-0400 Diastolic blood pressure 63 mm[Hg] Dr. Matteo Rebollar Work Phone: 5(181)932-819065 [place] [address] 06-04-2023 08:43-0400 Heart rate 66 /min Dr. Matteo Rebollar Work Phone: 7(729)661-788465 [place] [address] 06-04-2023 08:43-0400 Respiratory rate 15 /min Dr. Matteo Rebollar Work Phone: 4(267)551-067565 [place] [address] 06-04-2023 08:43-0400 SaO2% (BldA) [Mass fraction] 97 % Dr. Matteo Rebollar Work Phone: 7(257)360-941365 [place] [address] 06-04-2023 08:43-0400 Systolic blood pressure 103 mm[Hg] Dr. Matteo Rebollar Work Phone: 8(992)572-472965 [place] [address] 05-28-2023 10:01-0400 Body mass index (BMI) [Ratio] 26.9 kg/m2 Dr. Matteo Rebollar Work Phone: [facility] 05-28-2023 10:01-0400 Body temperature 98.2 [degF] Dr. Matteo Rebollar Work Phone: [facility] 05-28-2023 10:01-0400 Body weight 84.[address] Matteo Rebollar Work Phone: 9(555)464-871561 [place] [address] 05-28-2023 10:01-0400 Diastolic blood pressure 58 mm[Hg] Dr. Matteo Rebollar Work Phone: 9(042)109-501961 [place] [address] 05-28-2023 10:01-0400 Heart rate 71 /min Dr. Matteo Rebollar Work Phone: 8(985)399-193265 [place] [address] 05-28-2023 10:01-0400 Respiratory rate 16 /min Dr. Matteo Rebollar Work Phone: 4(596)228-126865 [place] [address] 05-28-2023 10:01-0400 SaO2% (BldA) [Mass fraction] 98 % Dr. Matteo Rebollar Work Phone: 0(632)942-541461 [place] [address] 05-28-2023 10:01-0400 Systolic blood pressure 104 mm[Hg] Dr. Matteo Rebollar Work Phone: 7(321)103-041461 [place] [address] 05-21-2023 08:25-0400 Diastolic blood pressure 52 mm[Hg] Dr. Matteo Rebollar Work Phone: 8(965)374-987861 [place] [address] 05-21-2023 08:25-0400 Systolic blood pressure 89 mm[Hg] Dr. Matteo Rebollar Work Phone: 6(381)699-362261 [place] [address] 05-21-2023 08:18-0400 Body mass index (BMI) [Ratio] 26.9 kg/m2 Dr. Matteo Rebollar Work Phone: 7(132)230-808061 [place] [address] 05-21-2023 08:18-0400 Body temperature 97.6 [degF] Dr. Matteo Rebollar Work Phone: 2(038)237-391661 [place] [address] 05-21-2023 08:18-0400 Body weight 85.[address] Matteo Rebollar Work Phone: 6(561)390-371761 [place] [address] 05-21-2023 08:18-0400 Heart rate 64 /min Dr. Matteo Rebollar Work Phone: 1(930)638-193161 [place] [address] 05-21-2023 08:18-0400 Respiratory rate 15 /min Dr. Matteo Rebollar Work Phone: 2(032)509-359461 [place] [address] 05-21-2023 08:18-0400 SaO2% (BldA) [Mass fraction] 99 % Dr. Matteo Rebollar Work Phone: 0(571)184-057365 [place] [address] 05-15-2023 09:37-0400 Body mass index (BMI) [Ratio] 27.3 kg/m2 Dr. Matteo Rebollar Work Phone: 1(041)597-274565 [place] [address] 05-15-2023 09:37-0400 Body temperature 98 [degF] Dr. Matteo Rebollar Work Phone: 4(100)471-178865 [place] [address] 05-15-2023 09:37-0400 Body weight 86.[address] Matteo Rebollar Work Phone: 4(138)823-565065 [place] [address] 05-15-2023 09:37-0400 Diastolic blood pressure 67 mm[Hg] Dr. Matteo Rebollar Work Phone: 2(800)322-954465 [place] [address] 05-15-2023 09:37-0400 Heart rate 59 /min Dr. Matteo Rebollar Work Phone: 3(477)269-164361 [place] [address] 05-15-2023 09:37-0400 Respiratory rate 16 /min Dr. Matteo Rebollar Work Phone: 5(750)900-454265 [place] [address] 05-15-2023 09:37-0400 SaO2% (BldA) [Mass fraction] 100 % Dr. Matteo Rebollar Work Phone: 3(302)789-699965 [place] [address] 05-15-2023 09:37-0400 Systolic blood pressure 108 mm[Hg] Dr. Matteo Rebollar Work Phone: 6(191)461-891365 [place] [address] 05-07-2023 10:42-0400 Body mass index (BMI) [Ratio] 27.3 kg/m2 Dr. Matteo Rebollar Work Phone: 7(830)075-222665 [place] [address] 05-07-2023 10:42-0400 Body temperature 98.3 [degF] Dr. Matteo Rebollar Work Phone: 3(972)521-370465 [place] [address] 05-07-2023 10:42-0400 Body weight 86.[address] Matteo Rebollar Work Phone: 8(441)268-833465 [place] [address] 05-07-2023 10:42-0400 Diastolic blood pressure 64 mm[Hg] Dr. Matteo Rebollar Work Phone: 3(024)261-055265 [place] [address] 05-07-2023 10:42-0400 Heart rate 62 /min Dr. Matteo Rebollar Work Phone: 2(080)470-578065 [place] [address] 05-07-2023 10:42-0400 Respiratory rate 18 /min Dr. Matteo Rebollar Work Phone: 0(632)122-681565 [place] [address] 05-07-2023 10:42-0400 SaO2% (BldA) [Mass fraction] 100 % Dr. Matteo Rebollar Work Phone: 5(320)478-547665 [place] [address] 05-07-2023 10:42-0400 Systolic blood pressure 100 mm[Hg] Dr. Matteo Rebollar Work Phone: 8(403)351-074365 [place] [address] 05-07-2023 08:31-0400 Body mass index (BMI) [Ratio] 27 kg/m2 Dr. Matteo Rebollar Work Phone: 6(788)000-398965 [place] [address] 05-07-2023 08:31-0400 Body temperature 98.1 [degF] Dr. Matteo Rebollar Work Phone: 1(438)366-119065 [place] [address] 05-07-2023 08:31-0400 Body weight 85.[address] Matteo Rebollar Work Phone: 3(806)482-958865 [place] [address] 05-07-2023 08:31-0400 Diastolic blood pressure 57 mm[Hg] Dr. Matteo Rebollar Work Phone: 3(616)588-923265 [place] [address] 05-07-2023 08:31-0400 Heart rate 66 /min Dr. Matteo Rebollar Work Phone: 5(370)880-711761 [place] [address] 05-07-2023 08:31-0400 Respiratory rate 16 /min Dr. Matteo Rebollar Work Phone: 1(691)564-159265 [place] [address] 05-07-2023 08:31-0400 SaO2% (BldA) [Mass fraction] 99 % Dr. Matteo Rebollar Work Phone: 1(215)163-788061 [place] [address] 05-07-2023 08:31-0400 Systolic blood pressure 94 mm[Hg] Dr. Matteo Rebollar Work Phone: 8(161)958-501065 [place] [address] 04-30-2023 08:42-0400 Body mass index (BMI) [Ratio] 26.8 kg/m2 Dr. Matteo Rebollar Work Phone: 8(019)435-784865 [place] [address] 04-30-2023 08:42-0400 Body temperature 98.3 [degF] Dr. Matteo Rebollar Work Phone: 2(480)479-214765 [place] [address] 04-30-2023 08:42-0400 Body weight 84.[address] Matteo Rebollar Work Phone: 9(071)728-155965 [place] [address] 04-30-2023 08:42-0400 Diastolic blood pressure 59 mm[Hg] Dr. Matteo Rebollar Work Phone: 8(814)791-285361 [place] [address] 04-30-2023 08:42-0400 Heart rate 73 /min Dr. Matteo Rebollar Work Phone: 1(049)278-425261 [place] [address] 04-30-2023 08:42-0400 Respiratory rate 16 /min Dr. Matteo Rebollar Work Phone: 8(324)508-133861 [place] [address] 04-30-2023 08:42-0400 SaO2% (BldA) [Mass fraction] 99 % Dr. Matteo Rebollar Work Phone: 6(692)991-205365 [place] [address] 04-30-2023 08:42-0400 Systolic blood pressure 93 mm[Hg] Dr. Matteo Rebollar Work Phone: 7(272)741-399361 [place] [address] 04-23-2023 09:35-0400 Body mass index (BMI) [Ratio] 27.1 kg/m2 Dr. Matteo Rebollar Work Phone: 5(411)742-514865 [place] [address] 04-23-2023 09:35-0400 Body temperature 98.2 [degF] Dr. Matteo Rebollar Work Phone: 4(959)340-161965 [place] [address] 04-23-2023 09:35-0400 Body weight 85.[address] Matteo Rebollar Work Phone: 4(652)918-510865 [place] [address] 04-23-2023 09:35-0400 Diastolic blood pressure 64 mm[Hg] Dr. Matteo Rebollar Work Phone: 0(640)898-639765 [place] [address] 04-23-2023 09:35-0400 Heart rate 72 /min Dr. Matteo Rebollar Work Phone: 4(212)803-704665 [place] [address] 04-23-2023 09:35-0400 Respiratory rate 18 /min Dr. Matteo Rebollar Work Phone: 3(984)304-373265 [place] [address] 04-23-2023 09:35-0400 SaO2% (BldA) [Mass fraction] 99 % Dr. Matteo Rebollar Work Phone: 8(097)454-831765 [place] [address] 04-23-2023 09:35-0400 Systolic blood pressure 103 mm[Hg] Dr. Matteo Rebollar Work Phone: 2(091)248-807765 [place] [address] 04-19-2023 09:52-0400 Body temperature 97.2 [degF] Dr. Matteo Rebollar Work Phone: 3(974)682-377465 [place] [address] 04-19-2023 09:52-0400 Diastolic blood pressure 75 mm[Hg] Dr. Matteo Rebollar Work Phone: 4(491)212-443565 [place] [address] 04-19-2023 09:52-0400 Heart rate 64 /min Dr. Matteo Rebollar Work Phone: 1(121)115-549865 [place] [address] 04-19-2023 09:52-0400 Respiratory rate 18 /min Dr. Matteo Rebollar Work Phone: 5(404)717-061561 [place] [address] 04-19-2023 09:52-0400 SaO2% (BldA) [Mass fraction] 100 % Dr. Matteo Rebollar Work Phone: 8(936)084-547565 [place] [address] 04-19-2023 09:52-0400 Systolic blood pressure 111 mm[Hg] Dr. Matteo Rebollar Work Phone: 1(073)491-764965 [place] [address] 04-18-2023 17:40-0400 Body height 177.[address] Matteo Rebollar Work Phone: 8(797)718-490765 [place] [address] 04-18-2023 17:40-0400 Body mass index (BMI) [Ratio] 27.6 kg/m2 Dr. Matteo Rebollar Work Phone: 4(331)552-170465 [place] [address] 04-18-2023 17:40-0400 Body weight 87.[address] Matteo Rebollar Work Phone: 4(026)118-038865 [place] [address] 04-17-2023 15:35-0400 Diastolic blood pressure 54 mm[Hg] Dr. Matteo Rebollar Work Phone: 4(501)038-00[address] [place] [address] 04-17-2023 15:35-0400 Heart rate 64 /min Dr. Matteo Rebollar Work Phone: 1(477)033-481465 [place] [address] 04-17-2023 15:35-0400 Systolic blood pressure 103 mm[Hg] Dr. Matteo Rebollar Work Phone: 8(706)887-549765 [place] [address] 04-17-2023 13:27-0400 Respiratory rate 16 /min Dr. Matteo Rebollar Work Phone: 9(454)174-587965 [place] [address] 04-16-2023 17:36-0400 Body temperature 96.7 [degF] Dr. Matteo Rebollar Work Phone: 5(109)922-879065 [place] [address] 04-16-2023 17:36-0400 SaO2% (BldA) [Mass fraction] 99 % Dr. Matteo Rebollar Work Phone: 7(220)796-691865 [place] [address] 04-16-2023 14:48-0400 Body mass index (BMI) [Ratio] 27.8 kg/m2 Dr. Matteo Rebollar Work Phone: 3(215)696-432261 [place] [address] 04-16-2023 14:48-0400 Body temperature 98.2 [degF] Dr. Matteo Rebollar Work Phone: 0(886)628-593361 [place] [address] 04-16-2023 14:48-0400 Body weight 88.[address] Matteo Rebollar Work Phone: 2(097)464-388065 [place] [address] 04-16-2023 14:48-0400 Diastolic blood pressure 60 mm[Hg] Dr. Matteo Rebollar Work Phone: 3(482)757-516065 [place] [address] 04-16-2023 14:48-0400 Heart rate 74 /min Dr. Matteo Rebollar Work Phone: 5(164)191-868765 [place] [address] 04-16-2023 14:48-0400 Respiratory rate 16 /min Dr. Matteo Rebollar Work Phone: 0(517)149-346065 [place] [address] 04-16-2023 14:48-0400 SaO2% (BldA) [Mass fraction] 100 % Dr. Matteo Rebollar Work Phone: 7(516)556-149565 [place] [address] 04-16-2023 14:48-0400 Systolic blood pressure 97 mm[Hg] Dr. Matteo Rebollar Work Phone: 3(518)483-507865 [place] [address] 04-12-2023 13:24-0400 Body height 177.[address] Matteo Rebollar Work Phone: 5(207)911-331965 [place] [address] 04-12-2023 13:24-0400 Body temperature 97 [degF] Dr. Matteo Rebollar Work Phone: 7(287)072-358165 [place] [address] 04-12-2023 13:24-0400 Diastolic blood pressure 53 mm[Hg] Dr. Matteo Rebollar Work Phone: 0(363)317-344865 [place] [address] 04-12-2023 13:24-0400 Heart rate 86 /min Dr. Matteo Rebollar Work Phone: 3(581)972-339961 [place] [address] 04-12-2023 13:24-0400 Respiratory rate 16 /min Dr. Matteo Rebollar Work Phone: 7(364)247-524965 [place] [address] 04-12-2023 13:24-0400 SaO2% (BldA) [Mass fraction] 100 % Dr. Matteo Rebollar Work Phone: 3(415)195-233265 [place] [address] 04-12-2023 13:24-0400 Systolic blood pressure 83 mm[Hg] Dr. Matteo Rebollar Work Phone: 8(011)600-562965 [place] [address] 04-09-2023 09:20-0400 Body mass index (BMI) [Ratio] 27.2 kg/m2 Dr. Matteo Rebollar Work Phone: 4(276)029-998165 [place] [address] 04-09-2023 09:20-0400 Body temperature 98.1 [degF] Dr. Matteo Rebollar Work Phone: 1(455)238-935065 [place] [address] 04-09-2023 09:20-0400 Body weight 86.[address] Matteo Rebollar Work Phone: 8(429)855-799465 [place] [address] 04-09-2023 09:20-0400 Diastolic blood pressure 70 mm[Hg] Dr. Matteo Rebollar Work Phone: 1(583)009-488265 [place] [address] 04-09-2023 09:20-0400 Heart rate 70 /min Dr. Matteo Rebollar Work Phone: 4(669)514-716865 [place] [address] 04-09-2023 09:20-0400 Respiratory rate 18 /min Dr. Matteo Rebollar Work Phone: 0(418)253-510465 [place] [address] 04-09-2023 09:20-0400 SaO2% (BldA) [Mass fraction] 100 % Dr. Matteo Rebollar Work Phone: 7(287)379-668065 [place] [address] 04-09-2023 09:20-0400 Systolic blood pressure 110 mm[Hg] Dr. Matteo Rebollar Work Phone: 3(348)242-660665 [place] [address] 04-02-2023 09:28-0400 Body mass index (BMI) [Ratio] 27.8 kg/m2 Dr. Matteo Rebollar Work Phone: 4(358)931-734665 [place] [address] 04-02-2023 09:28-0400 Body temperature 98.2 [degF] Dr. Matteo Rebollar Work Phone: 4(886)240-235565 [place] [address] 04-02-2023 09:28-0400 Body weight 87.[address] Matteo Rebollar Work Phone: 0(084)161-169865 [place] [address] 04-02-2023 09:28-0400 Diastolic blood pressure 71 mm[Hg] Dr. Matteo Rebollar Work Phone: 8(823)664-828165 [place] [address] 04-02-2023 09:28-0400 Heart rate 82 /min Dr. Matteo Rebollar Work Phone: 7(604)171-490765 [place] [address] 04-02-2023 09:28-0400 Respiratory rate 16 /min Dr. Matteo Rebollar Work Phone: 1(375)580-807265 [place] [address] 04-02-2023 09:28-0400 SaO2% (BldA) [Mass fraction] 98 % Dr. Matteo Rebollar Work Phone: 1(208)522-774665 [place] [address] 04-02-2023 09:28-0400 Systolic blood pressure 108 mm[Hg] Dr. Matteo Rebollar Work Phone: 0(167)547-427065 [place] [address] 03-27-2023 09:12-0400 Body mass index (BMI) [Ratio] 27.7 kg/m2 Dr. Matteo Rebollar Work Phone: 2(404)035-688865 [place] [address] 03-27-2023 09:12-0400 Body temperature 96.7 [degF] Dr. Matteo Rebollar Work Phone: 9(295)699-085665 [place] [address] 03-27-2023 09:12-0400 Body weight 87.[address] Matteo Rebollar Work Phone: 8(689)115-662765 [place] [address] 03-27-2023 09:12-0400 Diastolic blood pressure 65 mm[Hg] Dr. Matteo Rebollar Work Phone: 7(186)097-869861 [place] [address] 03-27-2023 09:12-0400 Heart rate 67 /min Dr. Matteo Rebollar Work Phone: 5(957)075-221761 [place] [address] 03-27-2023 09:12-0400 Respiratory rate 16 /min Dr. Matteo Rebollar Work Phone: 8(670)800-621065 [place] [address] 03-27-2023 09:12-0400 SaO2% (BldA) [Mass fraction] 99 % Dr. Matteo Rebollar Work Phone: 6(933)675-095265 [place] [address] 03-27-2023 09:12-0400 Systolic blood pressure 113 mm[Hg] Dr. Matteo Rebollar Work Phone: 7(272)728-886865 [place] [address] 03-19-2023 09:16-0400 Body mass index (BMI) [Ratio] 27.6 kg/m2 Dr. Matteo Rebollar Work Phone: 3(552)964-998465 [place] [address] 03-19-2023 09:16-0400 Body temperature 98.2 [degF] Dr. Matteo Rebollar Work Phone: 9(330)501-116265 [place] [address] 03-19-2023 09:16-0400 Body weight 87.[address] Matteo Rebollar Work Phone: 3(566)449-721865 [place] [address] 03-19-2023 09:16-0400 Diastolic blood pressure 64 mm[Hg] Dr. Matteo Rebollar Work Phone: 9(968)239-806765 [place] [address] 03-19-2023 09:16-0400 Heart rate 66 /min Dr. Matteo Rebollar Work Phone: 2(623)529-371965 [place] [address] 03-19-2023 09:16-0400 Respiratory rate 16 /min Dr. Matteo Rebollar Work Phone: 1(417)451-738665 [place] [address] 03-19-2023 09:16-0400 SaO2% (BldA) [Mass fraction] 98 % Dr. Matteo Rebollar Work Phone: 1(181)460-583165 [place] [address] 03-19-2023 09:16-0400 Systolic blood pressure 115 mm[Hg] Dr. Matteo Rebollar Work Phone: 6(496)857-377765 [place] [address] 03-12-2023 08:03-0400 Body mass index (BMI) [Ratio] 28 kg/m2 Dr. Matteo Rebollar Work Phone: 1(765)291-465965 [place] [address] 03-12-2023 08:03-0400 Body temperature 97 [degF] Dr. Matteo Rebollar Work Phone: 0(032)059-384565 [place] [address] 03-12-2023 08:03-0400 Body weight 88.[address] Matteo Rebollar Work Phone: 2(219)162-820465 [place] [address] 03-12-2023 08:03-0400 Diastolic blood pressure 70 mm[Hg] Dr. Matteo Rebollar Work Phone: 1(253)606-303365 [place] [address] 03-12-2023 08:03-0400 Heart rate 63 /min Dr. Matteo Rebollar Work Phone: 6(077)028-156265 [place] [address] 03-12-2023 08:03-0400 Respiratory rate 16 /min Dr. Matteo Rebollar Work Phone: 6(510)464-776665 [place] [address] 03-12-2023 08:03-0400 SaO2% (BldA) [Mass fraction] 97 % Dr. Matteo Rebollar Work Phone: 0(882)741-889765 [place] [address] 03-12-2023 08:03-0400 Systolic blood pressure 116 mm[Hg] Dr. Matteo Rebollar Work Phone: 3(903)769-025265 [place] [address] 03-06-2023 09:50-0400 Body mass index (BMI) [Ratio] 28.4 kg/m2 Dr. Matteo Rebollar Work Phone: 7(240)899-731065 [place] [address] 03-06-2023 09:50-0400 Body temperature 97 [degF] Dr. Matteo Rebollar Work Phone: 3(299)738-363565 [place] [address] 03-06-2023 09:50-0400 Body weight 89.[address] Matteo Rebollar Work Phone: 8(902)581-832665 [place] [address] 03-06-2023 09:50-0400 Diastolic blood pressure 65 mm[Hg] Dr. Matteo Rebollar Work Phone: 2(224)059-730165 [place] [address] 03-06-2023 09:50-0400 Heart rate 70 /min Dr. Matteo Rebollar Work Phone: 6(078)441-825061 [place] [address] 03-06-2023 09:50-0400 Respiratory rate 16 /min Dr. Matteo Rebollar Work Phone: 4(631)429-917165 [place] [address] 03-06-2023 09:50-0400 SaO2% (BldA) [Mass fraction] 98 % Dr. Matteo Rebollar Work Phone: 8(546)918-833365 [place] [address] 03-06-2023 09:50-0400 Systolic blood pressure 111 mm[Hg] Dr. Matteo Rebollar Work Phone: 1(870)595-216565 [place] [address] 02-27-2023 10:42-0400 Body mass index (BMI) [Ratio] 28 kg/m2 Dr. Matteo Rebollar Work Phone: 9(048)095-224965 [place] [address] 02-27-2023 10:00-0400 Body mass index (BMI) [Ratio] 28.1 kg/m2 Dr. Matteo Rebollar Work Phone: 3(287)389-412665 [place] [address] 02-27-2023 10:00-0400 Body temperature 97.2 [degF] Dr. Matteo Rebollar Work Phone: 1(230)520-476165 [place] [address] 02-27-2023 10:00-0400 Body weight 88.[address] Matteo Rebollar Work Phone: 4(864)462-013065 [place] [address] 02-27-2023 10:00-0400 Diastolic blood pressure 64 mm[Hg] Dr. Matteo Rebollar Work Phone: 5(310)271-407965 [place] [address] 02-27-2023 10:00-0400 Heart rate 67 /min Dr. Matteo Rebollar Work Phone: 8(502)542-829265 [place] [address] 02-27-2023 10:00-0400 Respiratory rate 16 /min Dr. Matteo Rebollar Work Phone: 1(051)929-864065 [place] [address] 02-27-2023 10:00-0400 SaO2% (BldA) [Mass fraction] 98 % Dr. Matteo Rebollar Work Phone: 2(160)398-459561 [place] [address] 02-27-2023 10:00-0400 Systolic blood pressure 108 mm[Hg] Dr. Matteo Rebollar Work Phone: 4(661)207-556065 [place] [address] 02-20-2023 08:50-0400 Body mass index (BMI) [Ratio] 28.8 kg/m2 Dr. Matteo Rebollar Work Phone: 0(913)850-657665 [place] [address] 02-20-2023 08:50-0400 Body temperature 98.3 [degF] Dr. Matteo Rebollar Work Phone: 9(886)009-135165 [place] [address] 02-20-2023 08:50-0400 Body weight 91.[address] Matteo Rebollar Work Phone: 9(242)108-214765 [place] [address] 02-20-2023 08:50-0400 Diastolic blood pressure 70 mm[Hg] Dr. Matteo Rebollar Work Phone: 9(086)250-376765 [place] [address] 02-20-2023 08:50-0400 Heart rate 70 /min Dr. Matteo Rebollar Work Phone: 3(949)391-755965 [place] [address] 02-20-2023 08:50-0400 Respiratory rate 16 /min Dr. Matteo Rebollar Work Phone: 8(184)359-107265 [place] [address] 02-20-2023 08:50-0400 SaO2% (BldA) [Mass fraction] 98 % Dr. Matteo Rebollar Work Phone: 6(479)691-193865 [place] [address] 02-20-2023 08:50-0400 Systolic blood pressure 113 mm[Hg] Dr. Matteo Rebollar Work Phone: 2(183)295-328065 [place] [address] 02-13-2023 14:46-0400 Body temperature 97.5 [degF] Dr. Matteo Rebollar Work Phone: 3(759)848-911165 [place] [address] 02-13-2023 14:46-0400 Diastolic blood pressure 77 mm[Hg] Dr. Matteo Rebollar Work Phone: 1(876)914-954165 [place] [address] 02-13-2023 14:46-0400 Heart rate 50 /min Dr. Matteo Rebollar Work Phone: 1(303)858-221461 [place] [address] 02-13-2023 14:46-0400 Respiratory rate 16 /min Dr. Matteo Rebollar Work Phone: 7(847)889-398765 [place] [address] 02-13-2023 14:46-0400 SaO2% (BldA) [Mass fraction] 99 % Dr. Matteo Rebollar Work Phone: 6(007)435-455665 [place] [address] 02-13-2023 14:46-0400 Systolic blood pressure 108 mm[Hg] Dr. Matteo Rebollar Work Phone: 6(313)290-141665 [place] [address] 02-13-2023 11:13-0400 Body height 177.[address] Matteo Rebollar Work Phone: 5(660)522-925465 [place] [address] 02-13-2023 11:13-0400 Body mass index (BMI) [Ratio] 28.4 kg/m2 Dr. Matteo Rebollar Work Phone: 7(462)648-534865 [place] [address] 02-13-2023 11:13-0400 Body weight [address] Matteo Rebollar Work Phone: 1(684)647-123165 [place] [address] 02-12-2023 13:14-0400 Body mass index (BMI) [Ratio] 29 kg/m2 Dr. Matteo Rebollar Work Phone: 4(860)350-770365 [place] [address] 02-12-2023 13:14-0400 Body temperature 97.3 [degF] Dr. Matteo Rebollar Work Phone: 2(442)989-774665 [place] [address] 02-12-2023 13:14-0400 Body weight 91.[address] Matteo Rebollar Work Phone: 8(862)038-391965 [place] [address] 02-12-2023 13:14-0400 Diastolic blood pressure 66 mm[Hg] Dr. Matteo Rebollar Work Phone: 3(018)688-726265 [place] [address] 02-12-2023 13:14-0400 Heart rate 64 /min Dr. Matteo Rebollar Work Phone: 9(971)860-453765 [place] [address] 02-12-2023 13:14-0400 Respiratory rate 17 /min Dr. Matteo Rebollar Work Phone: [facility] 02-12-2023 13:14-0400 SaO2% (BldA) [Mass fraction] 98 % Dr. Matteo Rebollar Work Phone: [facility] 02-12-2023 13:14-0400 Systolic blood pressure 106 mm[Hg] Dr. Matteo Rebollar Work Phone: [facility] 02-08-2023 10:00-0400 Body height 177.8 cm Bessy Garcia MD Work Phone: [facility] 02-08-2023 10:00-0400 Body mass index (BMI) [Ratio] 28.83 kg/m2 Bessy Garcia MD Work Phone: [facility] 02-08-2023 10:00-0400 Body temperature 97.9 [degF] Bessy Garcia MD Work Phone: [facility] 02-08-2023 10:00-0400 Body weight 91.13 kg Bessy Garcia MD Work Phone: [facility] 02-08-2023 10:00-0400 Diastolic blood pressure 67 mm[Hg] Bessy Garcia MD Work Phone: [facility] 02-08-2023 10:00-0400 Heart rate 75 /min Bessy Garcia MD Work Phone: [facility] 02-08-2023 10:00-0400 Respiratory rate 16 /min Bessy Garcia MD Work Phone: [facility] 02-08-2023 10:00-0400 SaO2% (BldA) [Mass fraction] 93 % Bessy Garcia MD Work Phone: [facility] 02-08-2023 10:00-0400 Systolic blood pressure 113 mm[Hg] Bessy Garcia MD Work Phone: [facility] 02-07-2023 12:57-0400 Body mass index (BMI) [Ratio] 28.8 kg/m2 Dr. Matteo Rebollar Work Phone: [facility] 02-07-2023 12:57-0400 Body temperature 97.4 [degF] Dr. Matteo Rebollar Work Phone: 2(024)174-054461 [place] [address] 02-07-2023 12:57-0400 Body weight 91.[address] Matteo Rebollar Work Phone: 3(396)871-785165 [place] [address] 02-07-2023 12:57-0400 Diastolic blood pressure 67 mm[Hg] Dr. Matteo Rebollar Work Phone: 4(120)068-681065 [place] [address] 02-07-2023 12:57-0400 Heart rate 74 /min Dr. Matteo Rebollar Work Phone: 8(945)175-328861 [place] [address] 02-07-2023 12:57-0400 Respiratory rate 16 /min Dr. Matteo Rebollar Work Phone: 4(099)033-121765 [place] [address] 02-07-2023 12:57-0400 SaO2% (BldA) [Mass fraction] 96 % Dr. Matteo Rebollar Work Phone: 8(119)413-312161 [place] [address] 02-07-2023 12:57-0400 Systolic blood pressure 107 mm[Hg] Dr. Matteo Rebollar Work Phone: 8(198)049-611961 [place] [address] 02-01-2023 10:53-0400 Body mass index (BMI) [Ratio] 28.8 kg/m2 Dr. Matteo Rebollar Work Phone: 4(497)380-205161 [place] [address] 02-01-2023 10:53-0400 Body temperature 97.4 [degF] Dr. Matteo Rebollar Work Phone: 7(278)958-389361 [place] [address] 02-01-2023 10:53-0400 Body weight 91.[address] Matteo Rebollar Work Phone: 3(787)402-511461 [place] [address] 02-01-2023 10:53-0400 Diastolic blood pressure 67 mm[Hg] Dr. Matteo Rebollar Work Phone: [facility] 02-01-2023 10:53-0400 Heart rate 55 /min Dr. Matteo Rebollar Work Phone: [facility] 02-01-2023 10:53-0400 Respiratory rate 16 /min Dr. Matteo Rebollar Work Phone: [facility] 02-01-2023 10:53-0400 SaO2% (BldA) [Mass fraction] 99 % Dr. Matteo Rebollar Work Phone: [facility] 02-01-2023 10:53-0400 Systolic blood pressure 111 mm[Hg] Dr. Matteo Rebollar Work Phone: [facility] 01-12-2023 14:36-0400 Body height 177.8 cm Pamela Middleton MD, PhD Work Phone: [facility] 01-12-2023 14:36-0400 Body mass index (BMI) [Ratio] 29.16 kg/m2 Pamela Middleton MD, PhD Work Phone: [facility] 01-12-2023 14:36-0400 Body temperature 97.5 [degF] Pamela Middleton MD, PhD Work Phone: [facility] 01-12-2023 14:36-0400 Body weight 92.17 kg Pamela Middleton MD, PhD Work Phone: [facility] 01-12-2023 14:36-0400 Diastolic blood pressure 66 mm[Hg] Pamela Middleton MD, PhD Work Phone: [facility] 01-12-2023 14:36-0400 Heart rate 82 /min Pamela Middleton MD, PhD Work Phone: [facility] 01-12-2023 14:36-0400 Respiratory rate 16 /min Pamela Middleton MD, PhD Work Phone: [facility] 01-12-2023 14:36-0400 SaO2% (BldA) [Mass fraction] 94 % Pamela Middleton MD, PhD Work Phone: [facility] 01-12-2023 14:36-0400 Systolic blood pressure 122 mm[Hg] Pamela Middleton MD, PhD Work Phone: [facility] 12-25-2022 09:57-0400 Body mass index (BMI) [Ratio] 28.7 kg/m2 Dr. Matteo Rebollar Work Phone: 0(469)648-534165 [place] [address] 12-25-2022 09:57-0400 Body temperature 97.4 [degF] Dr. Matteo Rebollar Work Phone: 1(065)371-306565 [place] [address] 12-25-2022 09:57-0400 Body weight 90.[address] Matteo Rebollar Work Phone: 3(357)706-182665 [place] [address] 12-25-2022 09:57-0400 Diastolic blood pressure 66 mm[Hg] Dr. Matteo Rebollar Work Phone: 0(895)087-442761 [place] [address] 12-25-2022 09:57-0400 Heart rate 73 /min Dr. Matteo Rebollar Work Phone: 4(356)049-574761 [place] [address] 12-25-2022 09:57-0400 Respiratory rate 16 /min Dr. Matteo Rebollar Work Phone: 9(731)368-549961 [place] [address] 12-25-2022 09:57-0400 SaO2% (BldA) [Mass fraction] 99 % Dr. Matteo Rebollar Work Phone: 5(132)090-630361 [place] [address] 12-25-2022 09:57-0400 Systolic blood pressure 111 mm[Hg] Dr. Matteo Rebollar Work Phone: 2(793)359-544965 [place] [address] 12-13-2022 12:51-0400 Body mass index (BMI) [Ratio] 29 kg/m2 Dr. Matteo Rebollar Work Phone: 8(465)514-656465 [place] [address] 12-13-2022 12:51-0400 Body temperature 98.5 [degF] Dr. Matteo Rebollar Work Phone: 7(463)849-355265 [place] [address] 12-13-2022 12:51-0400 Body weight 91.[address] Matteo Rebollar Work Phone: 3(431)671-096765 [place] [address] 12-13-2022 12:51-0400 Diastolic blood pressure 68 mm[Hg] Dr. Matteo Rebollar Work Phone: 8(154)597-476765 [place] [address] 12-13-2022 12:51-0400 Heart rate 84 /min Dr. Matteo Rebollar Work Phone: 6(446)543-181065 [place] [address] 12-13-2022 12:51-0400 Respiratory rate 16 /min Dr. Matteo Rebollar Work Phone: 2(770)772-597265 [place] [address] 12-13-2022 12:51-0400 SaO2% (BldA) [Mass fraction] 98 % Dr. Matteo Rebollar Work Phone: 1(010)881-919765 [place] [address] 12-13-2022 12:51-0400 Systolic blood pressure 111 mm[Hg] Dr. Matteo Rebollar Work Phone: 3(592)487-570565 [place] [address] 12-05-2022 15:03-0400 Body height 177.[address] Matteo Rebollar Work Phone: 1(116)566-798365 [place] [address] 12-05-2022 15:03-0400 Body mass index (BMI) [Ratio] 29 kg/m2 Dr. Matteo Rebollar Work Phone: 6(074)090-301065 [place] [address] 12-05-2022 15:03-0400 Body temperature 97.3 [degF] Dr. Matteo Rebollar Work Phone: 2(149)457-328765 [place] [address] 12-05-2022 15:03-0400 Body weight 91.[address] Matteo Rebollar Work Phone: 3(969)895-874465 [place] [address] 12-05-2022 15:03-0400 Diastolic blood pressure 77 mm[Hg] Dr. Matteo Rebollar Work Phone: [facility] 12-05-2022 15:03-0400 Heart rate 79 /min Dr. Matteo Rebollar Work Phone: [facility] 12-05-2022 15:03-0400 Respiratory rate 18 /min Dr. Matteo Rebollar Work Phone: [facility] 12-05-2022 15:03-0400 SaO2% (BldA) [Mass fraction] 95 % Dr. Matteo Rebollar Work Phone: [facility] 12-05-2022 15:03-0400 Systolic blood pressure 116 mm[Hg] Dr. Matteo Rebollar Work Phone: [facility] 07-03-2022 11:40-0400 Body height 174 cm Respiratory Wstr Work Phone: [facility] 07-03-2022 11:40-0400 Body weight 93.17 kg Respiratory Wstr Work Phone: [facility] 07-03-2022 11:40-0400 Heart rate 68 /min Respiratory Wstr Work Phone: [facility] 07-03-2022 11:40-0400 Respiratory rate 12 /min Respiratory Wstr Work Phone: [facility] 07-03-2022 11:40-0400 SaO2% (BldA) [Mass fraction] 98 % Respiratory Wstr Work Phone: [facility] 06-15-2022 08:37-0400 Body weight 94.35 kg Angely Clements [employer] Work Phone: [facility] 06-15-2022 08:37-0400 Diastolic blood pressure 52 mm[Hg] Angely Clements COMMISSARY [employer]ODUCTION SUPERVISOR.[employer] SPINNER Work Phone: [facility] 06-15-2022 08:37-0400 Heart rate 92 /min Angely Clements COMMISSARY PRODUCTION SUPERVISOR.[employer] SPINNER Work Phone: [facility] 06-15-2022 08:37-0400 Respiratory rate 20 /min Angely Clements COMMISSARY PRODUCTION SUPERVISOR.[employer] SPINNER Work Phone: [facility] 06-15-2022 08:37-0400 SaO2% (BldA) [Mass fraction] 98 % Angelyjustino Clements COMMISSARY PRODUCTION SUPERVISOR.[employer] SPINNER Work Phone: [facility] 06-15-2022 08:37-0400 Systolic blood pressure 100 mm[Hg] Angely Clements COMMISSARY PRODUCTION SUPERVISOR.[employer] SPINNER Work Phone: [facility] 12-13-2021 17:02-0400 Body weight 93.44 kg Matteo Rebollar MD Work Phone: [facility] 12-13-2021 17:02-0400 Diastolic blood pressure 70 mm[Hg] Matteo Rebollar MD Work Phone: [facility] 12-13-2021 17:02-0400 Heart rate 90 /min Matteo Rebollar MD Work Phone: [facility] 12-13-2021 17:02-0400 SaO2% (BldA) [Mass fraction] 95 % Matteo Rebollar MD Work Phone: [facility] 12-13-2021 17:02-0400 Systolic blood pressure 112 mm[Hg] Matteo Rebollar MD Work Phone: [facility] Encounters Encounter Date Encounter Type Care Provider Facility Start: 07-11-2025 End: 07-11-2025 ambulatory MATTEO REBOLLAR Facility:[facility] Start: 07-07-2025 End: 07-07-2025 ambulatory MATTEO REBOLLAR Facility:[facility] Start: 06-01-2025 End: 06-01-[address] Jim Ward [facility] Work Phone: Start: 06-01-2025 End: 06-01-2025 ambulatory Jim Ward Facility:[facility] Start: 04-02-2025 End: 04-02-2025 Patient encounter procedure Bessy Garcia MD Work Phone: Division of Urological Surgery at [facility] Comment on above: Bladder carcinoma (P rimary Dx) Start: 04-02-2025 ambulatory MATTEO REBOLLAR Facility: [facility] Start: 03-17-2025 End: 03-17-[address] See Erickson MD -[facility] Work Phone: Start: 03-17-2025 End: 03-17-[address] Matteo Rebollar MD Work Phone: [facility] Start: 03-09-2025 End: 03-09-[address] Anthony Ghosh MD -[facility] Work Phone: Start: 03-09-2025 End: 03-09-[address] Matteo Rebollar MD Work Phone: -[facility] Start: 03-05-2025 End: 03-05-[address] Robby Benitez MD -[facility] Work Phone: Start: 03-05-2025 End: 03-05-[address] Matteo Rebollar MD Work Phone: [facility] Work Phone: Start: 02-18-2025 End: 02-25-2025 Refill Dixon Rosen APRN.CNP Work Phone: Internal [facility] [place] Comment on above: Medication Problem Start: 02-16-2025 End: 02-17-2025 Telephone encounter Matteo Rebollar MD Work Phone: Internal Medicine [place] Comment on above: Medication Problem Start: 02-16-2025 End: 02-16-[address] Robby Benitez MD -[facility] Work Phone: Start: 02-16-2025 End: 02-16-[address] Matteo Rebollar MD Work Phone: [facility] Work Phone: Start: 02-16-[address] 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 Start: 02-04-2025 End: 02-04-2025 [facility] Start: 12-01-2024 End: 12-01-[address] Jim Ward DO [facility] Work Phone: Start: 12-01-2024 End: 12-01-2024 [facility]ulatory [facility] Start: 11-19-2024 End: 11-19-2024 ambulatory DIXON ROSEN Facility: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 Start: 08-11-2024 End: 08-11-2024 Patient encounter procedure Matteo Rebollar MD Work Phone: [facility] [place] Comment on above: Medicare annual well ness visit, subsequent (Primary Dx); Controlled type 2 diabetes mellitus with diabetic polyneuropathy, without long-term current use of insulin (HCC); Essential (primary) hypertension; Mixed hyperlipidemia; Cataract of both eyes, unspecified cataract type Start: 07-04-2024 End: 07-08-2024 Refill Angely Clements APRN.CNS Work Phone: [facility] [place] Comment on above: Refill Request Start: 06-30-2024 End: 06-30-2024 ambulatory Matteo Rebollar Facility:[facility] Start: 06-10-2024 End: 06-10-2024 Office outpatient visit 25 minutes Matteo Rebollar MD Work Phone: [facility] [place] Comment on above: NSTEMI (non-ST eleva finn myocardial infarction) (HCC) (Primary Dx); Controlled type 2 diabetes mellitus with diabetic polyneuropathy, without long-term current use of insulin (HCC); Acute bronchospasm due to viral infection; Hypomagnesemia; Anemia, unspecified type; Encounter for long-term current use of medication; COVID-19 virus infection; 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; Encounter for immunization; Encounter for screening examination for other mental health and behavioral disorders Start: 06-09-2024 ambulatory Matteo Rebollar Facilit y:[facility] Start: 06-05-2024 ambulatory Kelsi Pollock cility:[facility] Start: 06-04-2024 End: 06-04-2024 ambulatory Matteo Rebollar Facility:[facility] Start: 06-04-2024 ambulatory See Erickson Facility :[facility] Start: 06-04-2024 End: 06-06-2024 Evaluation and management of inpatient See Erickson Facility:[facility] Start: 06-02-2024 End: 06-02-2024 ambulatory Matteo Rebollar Facility:[facility] Start: 04-22-2024 Refill Dixon Antoine COMMISSARY PRODUCTION SUPERVISOR.COUNSEL Work Phone: [facility] [place] Comment on above: Refill Request Start: 04-21-2024 Refill Matteo garcias MD Work Phone: [facility] [place] Comment on above: Refill Request Start: 04-03-2024 End: 04-03-2024 Patient encounter procedure Bessy Garcia MD Work Phone: Division of Urological Surgery at [facility] Comment on above: Urothelial carcinoma (Primary Dx) Start: 03-20-2024 Telephone encounter Gin jones COMMISSARY PRODUCTION SUPERVISOR.COUNSEL Work Phone: [place] [facility] Comment on above: Results Start: 03-17-2024 End: 03-17-2024 Patient encounter procedure Raoul Cash MD Work Phone: [facility] Comment on above: Pustule (Primary Dx) ; Papule of skin Start: 02-29-2024 ambulatory Dixon Antoine COMMISSARY PRODUCTION SUPERVISOR.COUNSEL Work Phone: [facility] [place] Comment on above: Test Results Start: 02-15-2024 Refill Matteo garcias MD Work Phone: [facility] [place] Comment on above: Refill Request Start: 02-05-2024 ambulatory Dixon Antoine COMMISSARY PRODUCTION SUPERVISOR.COUNSEL Work Phone: [facility] [place] Comment on above: BLOODWORK Start: 02-05-2024 End: 02-05-2024 Patient encounter procedure Dixon Antoine COMMISSARY PRODUCTION SUPERVISOR.COUNSEL Work Phone: [facility] [place] Comment on above: Malignant neoplasm o f urinary bladder, unspecified site (HCC) (Primary Dx); 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); Thrombocytopenia (HCC); Depression, unspecified depression type; Neuropathy of both feet; Controlled type 2 diabetes mellitus with diabetic polyneuropathy, without long-term current use of insulin (HCC); Pure hypercholesterolemia Start: 01-11-2024 Refill Matteo garcias MD Work Phone: [facility] [place] Comment on above: Refill Request Start: 08-07-2023 End: 08-07-2023 Office outpatient visit 25 minutes Matteo Rebollar MD Work Phone: [facility] [place] Comment on above: Acquired hypothyroid ism (Primary Dx); Controlled type 2 diabetes mellitus without complication, without long-term current use of insulin (HCC); Balance problem; Neuropathy of both feet; Tinnitus of both ears; Malignant neoplasm of urinary bladder, unspecified site (HCC); Encounter for immunization; 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 Muriel Rebollar Work Phone: [facility] Start: 07-03-[address] Matteo Rebollar Work Phone: [facility]Radiation Oncology Start: 07-02-2023 End: 07-02-[address] Matteo Rebollar Work Phone: [facility] Work Phone: Start: 06-29-2023 End: 06-29-2023 ambulatory [facility] [place] Work Phone: [facility] [place] Start: 06-29-2023 End: 06-29-[address] Matteo Rebollar Work Phone: [facility] Work Phone: Start: 06-29-2023 End: 06-29-[address] Matteo Rebollar Work Phone: [facility] Work Phone: Start: 06-28-2023 End: 06-28-[address] Matteo Rebollar Work Phone: [facility] [facility] Work Phone: Start: 06-25-2023 End: 06-25-[address] Matteo Rebollar Work Phone: [facility] [facility] Work Phone: Start: 06-18-2023 End: 06-18-[address] Matteo Rebollar Work Phone: [facility] [facility] Work Phone: Start: 06-11-2023 End: 06-11-[address] Matteo Rebollar Work Phone: [facility] [facility] Work Phone: Start: 06-04-2023 End: 06-04-[address] [facility] Work Phone: Start: 05-28-2023 End: 05-28-[address] Matteo Rebollar Work Phone: [facility] [facility] Work Phone: Start: 05-21-2023 End: 05-21-[address] Matteo Rebollar Work Phone: [facility] [facility] Work Phone: Start: 05-15-2023 End: 05-15-[address] [facility]te[facility] Work [facility]: Start: 05-07-2023 End: 05-07-[address] Matteo Rebollar Work Phone: [facility] [facility] Work Phone: Start: 05-07-2023 End: 05-07-[address] Matteo Rebollar Work Phone: [facility] Work Phone: Start: 05-01-2023 Telephone encounter Matteo yang MD Work Phone: [facility] [place] Comment on above: medication question Start: 04-30-2023 End: 04-30-[address] Matteo Rebollar Work Phone: [facility] Work Phone: Start: 04-23-2023 Refill Matteo garcias MD Work Phone: [facility] [place] Comment on above: Refill Request Start: 04-23-2023 End: 04-23-[address] Matteo Rebollar Work Phone: [facility] Work Phone: Start: 04-19-[address] Matteo Rebollar Work Phone: [facility] Start: 04-18-2023 End: 04-19-2023 Evaluation and management of inpatient Dr. Matteo Rebollar Work Phone: [facility]-Medical Surgical 3 Work Phone: Start: 04-18-2023 End: 04-19-[address] Matteo Rebollar Work Phone: [facility] Work Phone: Start: 04-16-2023 End: 04-16-2023 Non-patient / Non-visit Dr. Matteo Rebollar Work Phone: [facility] Work Phone: Start: 04-16-2023 End: 04-16-[address] Matteo Rebollar Work Phone: [facility] Work Phone: Start: 04-12-[address] Matteo Rebollar Work Phone: [facility] Start: 04-10-2023 End: 04-10-[address] Matteo Rebollar Work Phone: [facility] Work Phone: Start: 04-10-2023 End: 04-10-[address] Matteo Rebollar Work Phone: [facility]-Laboratory , Specimen Work Phone: Start: 04-09-2023 End: 04-09-[address] Matteo Rebollar Work Phone: [facility] Work Phone: Start: 04-02-2023 End: 04-02-[address] Matteo Rebollar Work Phone: [facility] Work Phone: Start: 03-27-2023 End: 03-27-[address] Matteo Rebollar Work Phone: [facility] Work Phone: Start: 03-19-2023 End: 03-19-[address] Matteo Rebollar Work Phone: [facility] Work Phone: Start: 03-14-2023 Telephone encounter Matteo yang MD Work Phone: [address] [place] [address] Comment on above: Refill Request Start: 03-12-2023 End: 03-12-[address] Matteo Rebollar Work Phone: [facility] Work Phone: Start: 03-06-2023 End: 03-06-[address] Matteo Rebollar Work Phone: [facility] Work Phone: Start: 02-27-2023 End: 02-27-[address] Matteo Rebollar Work Phone: [facility] Work Phone: Start: 02-20-2023 Telephone encounter Matteo yang MD Work Phone: [facility] [place] Comment on above: increased blood suga r Start: 02-20-2023 End: 02-20-[address] Matteo Rebollar Work Phone: [facility] Work Phone: Start: 02-13-2023 Non-patient / Non-visit Dr. Muriel Rebollar Work Phone: [facility] Start: 02-13-2023 End: 02-13-2023 Admission to same day surgery center Dr[facility] Matteo [facility]bollar [facility] Start: 02-13-2023 End: 02-13-[address] Matteo Rebollar Work Phone: [facility] Work Phone: Start: 02-12-2023 End: 02-12-[address] Matteo Rebollar Work Phone: [facility] Start: 02-08-2023 End: 02-08-2023 Patient encounter procedure Bessy Garcia MD Work Phone: [facility] Comment on above: Bladder carcinoma (P rimary Dx) Start: 02-07-2023 End: 02-07-[address] Matteo Rebollar Work Phone: [facility] Start: 02-01-[address] Matteo Rebollar Work Phone: [facility] Start: 02-01-2023 End: 02-01-[address] Matteo Rebollar Work Phone: [facility] Start: 01-12-2023 End: 01-12-2023 Office outpatient new 60 minutes Pamela Middleton MD, PhD Work Phone: Division of Medical Oncology at [facility] Comment on above: Urothelial carcinoma (Primary Dx) Start: 12-25-2022 End: 12-25-[address] Matteo Rebollar Work Phone: [facility] Start: 12-20-2022 End: 12-20-[address] Matteo Rebollar Work Phone: [facility] Start: 12-13-2022 End: 12-13-[address] Matteo Rebollar Work Phone: [facility] Start: 12-05-2022 End: 12-05-[address] Matteo Rebollar Work Phone: [facility] Work Phone: Start: 12-05-2022 End: 12-05-[address] Matteo Rebollar Work Phone: [facility]-Laboratory , Specimen Start: 12-05-2022 End: 12-05-[address] Matteo Rebollar Work Phone: [facility] Start: 11-29-2022 End: 11-29-[address] Matteo Rebollar Work Phone: [facility] Work Phone: Start: 11-29-2022 End: 11-29-[address] Matteo Rebollar Work Phone: [facility] Start: 11-24-2022 Non-patient / Non-visit Dr. Muriel Rebollar Work Phone: [facility] Start: 11-24-2022 End: 11-24-[address] Matteo Rebollar Work Phone: [facility] Work Phone: Start: 11-24-2022 End: 11-24-[address] [facility] Start: 10-02-2022 Refill Matteo garcias MD Work Phone: [facility] [place] Comment on above: Refill Request Start: 07-03-2022 End: 07-03-2022 ambulatory Respiratory Therapist [facility] Work Phone: Pulmonary Medicine Comment on above: Spirometry Start: 07-03-2022 End: 07-03-2022 Patient encounter procedure Respiratory Therapist [facility] Work Phone: [facility] Start: 06-15-2022 End: 06-15-2022 Patient encounter procedure Angely Clements APRN.THREAD SPINNER Work Phone: [facility] [place] Comment on above: Cough variant asthma (Primary Dx); Pure hypercholesterolemia; Controlled type 2 diabetes mellitus without complication, without long-term current use of insulin (HCC); Thrombocytopenia (HCC); Mixed hyperlipidemia; Benign prostatic hyperplasia without lower urinary tract symptoms; Acquired hypothyroidism; Encounter for screening for malignant neoplasm of prostate Start: 05-29-2022 End: 05-29-2022 ambulatory [facility] Work Phone: Start: 05-29-2022 End: 05-29-2022 Patient encounter procedure [facility] , Spec[facility] Start: 05-05-2022 Refill Zenobia SeguraCOUNSEL Work Phone: Internal Medicine [place] Comment on above: Refill Request Start: 02-23-2022 End: 02-23-[address] Matteo Rebollar Work Phone: [facility]Labor[facility] , Specimen Start: 02-04-2022 Refill Angely Clements APRNARELIS Work Phone: Internal [facility] Comment on above: Refill Request Start: 01-19-2022 End: 01-19-[address] Matteo Rebollar Work Phone: [facility]-Laboratory , Specimen Start: 01-18-2022 End: 01-18-[address] Matteo Rebollar Work Phone: [facility] Start: 12-13-2021 End: 12-13-2021 Patient encounter procedure Matteo Rebollar MD Work Phone: [facility] [place] Comment on above: Controlled type 2 di abetes mellitus without complication, without long-term current use of insulin (HCC) (Primary Dx); Mixed hyperlipidemia; Acquired hypothyroidism; Encounter for long-term current use of medication Start: 12-07-2021 Orders Only Matteo garcias MD Work Phone: [facility] [place] Comment on above: Controlled type 2 di abetes mellitus without complication, without long-term current use of insulin (HCC) (Primary Dx); Mixed hyperlipidemia; Acquired hypothyroidism; Encounter for long-term current use of medication Refill Request Start: 12-06-2021 ambulatory Matteo garcias MD Work Phone: [facility] [place] Comment on above: sildenafil Start: 12-01-2021 Refill Matteo garcias MD Work Phone: Internal [facility] Comment on above: Refill Request Start: 07-29-2021 End: 07-29-[address] TEO ROSS MD [facility] Procedures Date Procedure Procedure Detail Performing Clinician Start: 04-02-2025 Cystourethroscopy Jared Garcia MD Work Phone: Start: 02-16-2025 CT of thorax, abdome n and pelvis with contrast Dr. Matteo Rebollar MD Work Phone: Start: 02-16-[address] Matteo Rebollar MD Work Phone: Start: 08-13-2024 Measurement of renal function Dr. Matteo Rebollar MD Work Phone: Comment on above: GFR Calc Start: 04-03-2024 Cystourethroscopy Jared Garcia MD Work Phone: Start: 02-20-[address] Matteo Rebollar MD Work Phone: Start: 02-20-2024 Urine microalbumin/c reatinine ratio measurement Dr. Matteo Rebollar MD Work Phone: Start: 12-03-2023 Assay of phosphorus inorganic Dr. Matteo Rebollar MD Work Phone: Start: 11-27-2023 PET study for locali zation of tumor Dr. Matteo Rebollar MD Work Phone: Start: 08-07-2023 [facility] COVI D-19 VACCINE (2022- SEASON) AGE 12+ YR Matteo Rebollar MD Work Phone: Start: 06-29-2023 INFLUENZA VACCINE, P RSV FREE, AGE 65+ YR, HIGH DOSE, QUADRIVALENT (FLUZONE HIGH-DOSE) Dixon Rosen COMMISSARY PRODUCTION SUPERVISOR.COUNSEL Work Phone: Start: 06-29-2023 Computed tomography of abdomen and pelvis with contrast Dr. Matteo Rebollar Work Phone: Start: 06-26-2023 PET study for locali zation of tumor Dr. Matteo Rebollar Work Phone: Start: 06-11-2023 Allergen spec ige cr ude allergen extract each Dr. Matteo Rebollar MD Work Phone: Start: 04-18-2023 Cysto,TUR,Prostate,O lympus (Not Applicable) Dr. Matteo Rebollar Work Phone: Start: 04-10-[address] Matteo Rebollar Work Phone: Start: 04-06-2023 Bacteria identified in Urine by Culture Dr. Matteo Rebollar MD Work Phone: Start: 04-06-[address] Matteo Rebollar Work Phone: Start: 03-27-2023 Bacteria identified in Urine by Culture Dr. Matteo Rebollar MD Work Phone: Start: 02-13-2023 Plain chest X-ray Dr. Ben Rebollar Work Phone: Start: 02-13-2023 Implantation to cardiovascular system Dr. Matteo Rebollar Work Phone: Start: 02-13-2023 Fluoroscopic guidance Rocio Rebollar Work Phone: Start: 02-08-2023 Cystourethroscopy Jared Garcia MD Work Phone: Start: 12-20-2022 MRI of brain with contrast Dr. Matteo Rebollar Work Phone: Start: 12-18-2022 Positron emission to mography with computed tomography Dr. Matteo Rebollar Work Phone: Start: 11-29-2022 Computed tomography of abdomen and pelvis with contrast Dr. Matteo Rebollar Work Phone: Start: 07-03-2022 Brncdilat rspse spmt ry pre&post-brncdilat admn Angely Clements COMMISSARY PRODUCTION SUPERVISOR.THREAD SPINNER Work Phone: Urine culture Dr. Matteo hernandez Work Phone: Plan of Treatment Date Care Activity Detail Author Start: 02-21-2029 Tetanus vaccination TETANUS [facility] Start: 02-21-2029 Urine microalbumin profile [facility] Start: 02-13-2026 Annual PCP Team Chronic Disease Visit Annual PCP Team Chronic Disease Visit [facility] Start: 02-13-2026 BP Controlled (<130/80) BP Controlled (<130/80) [facility] Start: 02-04-2026 Hepatitis B screening Urine Albumin:Creatinine Ratio [facility] Start: 02-04-2026 Hepatitis B surface antibody level LDL Cholesterol [facility] Start: 11-19-2025 Annual PCP Team Chronic Disease Visit Annual PCP Team Chronic Disease Visit [facility] Start: 11-19-2025 BP Controlled (<130/80) BP Controlled (<130/80) [facility] in Start: 08-25-2025 Hepatitis B screening Urine Albumin:Creatinine Ratio [facility] Start: 08-19-2025 End: 08-19-2025 Patient encounter procedure 08/19/2025 9:20 AM EST Office Visit [facility] [place] [address] [place], [place] [id number] Matteo Rebollar MD [address] [place], [place] [id number] Medicare Wellness [facility] [place] Comment on above: Medicare Wellness Start: 08-11-2025 Annual PCP Team Chronic Disease Visit Annual PCP Team Chronic Disease Visit [facility] Start: 08-11-2025 Diabetic foot examination Diabetic Foot Exam [facility] Start: 08-11-2025 Medicare Annual Wellness Visit Medicare Annual Wellness Visit [facility] Start: 06-26-2025 Hepatitis B surface antibody level LDL Cholesterol [facility] Start: 06-10-2025 Annual PCP Team Chronic Disease Visit Annual PCP Team Chronic Disease Visit [facility] Start: 06-10-2025 Anxiety Screening Anxiety Screening [facility] Start: 06-10-2025 Covid-19 Vaccine ( season) Covid-19 Vaccine () [facility] Comment on above: Postponed from 05/11/2024 (Declined at t his time) Start: 05-11-2025 Influenza vaccination INFLUENZA VACCINE (#1) [facility] Start: 05-07-2025 Hemoglobin A1c measurement [facility]C [facility] Start: 04-07-2025 Glaucoma screening Dilated Retinal Exam [facility] Start: 03-05-2025 Patient referral [facility] Work Phone: Start: 02-16-2025 Venous catheter care management [facility] Start: 02-13-2025 End: 02-13-2025 Patient encounter procedure Internal Med darlene Matthew Comment on above: 6 month follow up Start: 02-04-2025 Annual PCP Team Chronic Disease Visit Annual PCP Team Chronic Disease Visit [facility] Start: 12-25-2024 Hemoglobin A1c measurement [facility]C [facility] Start: 09-10-2024 Advance Directive Discussion Advance Directive Discussion [facility] Start: 08-11-2024 End: 11-10-2024 Microalbumin/Creatinine [Mass Ratio] in Urine ALBUMIN/CREATININE RATIO, URINE Lab Routine Controlled type 2 diabetes mellitus with diabetic polyneuropathy, without long-term current use of insulin (HCC) Expected: 08/11/2024, Expires: 11/10/2024 [facility] Comment on above: Expected: 08/11/2024, Expires: Start: 08-11-2024 End: 08-11-2024 Patient encounter procedure 08/11/2024 8:40 AM EST Office Visit Internal Medicine [facility] [address] [place] [address] Matteo Rebollar MD [address] [place] [address] 1 year follow up [facility] Comment on above: 1 year follow up Start: 08-07-2024 Annual PCP Team Chronic Disease Visit Annual PCP Team Chronic Disease Visit [facility] Start: 07-23-2024 Hepatitis B surface antibody level LDL Cholesterol [facility] Start: 06-26-2024 End: 06-26-2024 ambulatory [facility] Start: 06-24-2024 Glaucoma screening Dilated Retinal Exam [facility] Start: 06-10-2024 End: 09-09-2024 CBC panel - Blood by Automated count COMPLETE BLOOD COUNT Lab Routine Anemia, unspecified type Encounter for long-term current use of medication Expected: 06/10/2024 (Approximate), Expires: 09/09/2024 [facility] Work Phone: Comment on above: Expected: 06/10/2024 (Approximate), Expi res: 09/09/2024 Start: 06-10-2024 End: 09-09-2024 Comprehensive metabolic 2000 panel - Serum or Plasma COMPREHENSIVE METABOLIC PANEL Lab Routine Encounter for long-term current use of medication Expected: 06/10/2024 (Approximate), Expires: 09/09/2024 [facility] Comment on above: Expected: 06/10/2024 (Approximate), Expi res: 09/09/2024 Start: 06-10-2024 End: 09-09-2024 Hemoglobin A1c in Blood HEMOGLOBIN A1C Lab Routine Controlled type 2 diabetes mellitus with diabetic polyneuropathy, without long-term current use of insulin (HCC) Expected: 06/10/2024 (Approximate), Expires: 09/09/2024 [facility] Comment on above: Expected: 06/10/2024 (Approximate), Expi res: 09/09/2024 Start: 06-10-2024 End: 09-09-2024 Lipid 1996 panel - Serum or Plasma LIPID PANEL BASIC Lab Routine Encounter for long-term current use of medication Expected: 06/10/2024 (Approximate), Expires: 09/09/2024 [facility] Comment on above: Expected: 06/10/2024 (Approximate), Expi res: 09/09/2024 Start: 06-10-2024 End: 09-09-2024 Magnesium [Mass/volume] in Serum or Plasma MAGNESIUM Lab Routine Hypomagnesemia Encounter for long-term current use of medication Expected: 06/10/2024 (Approximate), Expires: 09/09/2024 [facility] Comment on above: Expected: 06/10/2024 (Approximate), Expi res: 09/09/2024 Start: 06-10-2024 End: 09-09-2024 Microalbumin/Creatinine [Mass Ratio] in Urine ALBUMIN/CREATININE RATIO, URINE Lab Routine Controlled type 2 diabetes mellitus with diabetic polyneuropathy, without long-term current use of insulin (HCC) Expected: 06/10/2024 (Approximate), Expires: 09/09/2024 [facility] Comment on above: Expected: 06/10/2024 (Approximate), Expi res: 09/09/2024 Start: 05-11-2024 COVID-19 VACCINE ( season) COVID-19 VACCINE () [facility] Start: 05-11-2024 Influenza vaccination Influenza Vaccine (#1) [facility] Start: 02-12-2024 End: 05-13-2024 Hemoglobin A1c in Blood HEMOGLOBIN A1C Lab Routine Controlled type 2 diabetes mellitus with diabetic polyneuropathy, without long-term current use of insulin (HCC) Expected: 02/12/2024, Expires: 05/13/2024 [facility] Work Phone: Comment on above: Expected: 02/12/2024, Expires: Start: 02-12-2024 End: 05-13-2024 LIPID PANEL, NONFASTING LIPID PANEL, NONFASTING Lab Routine Pure hypercholesterolemia Expected: 02/12/2024, Expires: 05/13/2024 [facility] Comment on above: Expected: 02/12/2024, Expires: Start: 02-07-2024 ANNUAL PCP TEAM CHRONIC DISEASE VISIT ANNUAL PCP TEAM CHRONIC DISEASE VISIT [facility] Start: 02-05-2024 End: 05-06-2024 Microalbumin/Creatinine [Mass Ratio] in Urine ALBUMIN/CREATININE RATIO, URINE Lab Routine Controlled type 2 diabetes mellitus with diabetic polyneuropathy, without long-term current use of insulin (HCC) Expected: 02/05/2024, Expires: 05/06/2024 [facility] Comment on above: Expected: 02/05/2024, Expires: Start: 02-05-2024 End: 02-05-2024 Patient encounter procedure 02/05/2024 8:40 AM EDT Office Visit Internal Medicine [address] [id number] Dixon Rosen APRN.COUNSEL [address] [place], [place] [id number] 6 months [facility] [place] Comment on above: 6 months Start: 01-26-2024 Hepatitis B screening URINE ALBUMIN:CREATININE RATIO [facility] Start: 01-26-2024 Hepatitis B surface antibody level LDL CHOLESTEROL [facility] Start: 01-21-2024 Hemoglobin A1c measurement HbA1C [facility] Start: 01-21-2024 Hemoglobin A1c/Hemoglobin.total in Blood HbA1C [facility] Start: 12-06-2023 Covid-19 Vaccine () Covid-19 Vaccine () [facility] Start: 09-11-2023 End: 12-11-2023 CBC panel - Blood by Automated count CBC Lab Routine Macrocytic anemia Expected: 09/11/2023 (Approximate), Expires: 12/11/2023 [facility] Work Phone: Comment on above: Expected: 09/11/2023 (Approximate), Expi res: 12/11/2023 Start: 09-11-2023 End: 12-11-2023 Cobalamin (Vitamin B12) [Mass/volume] in Serum or Plasma VITAMIN B12 BLOOD Lab Routine Macrocytic anemia Expected: 09/11/2023 (Approximate), Expires: 12/11/2023 [facility] Work Phone: Comment on above: Expected: 09/11/2023 (Approximate), Expi res: 12/11/2023 Start: 09-11-2023 End: 12-11-2023 Folate [Mass/volume] in Serum or Plasma FOLATE SERUM Lab Routine Macrocytic anemia Expected: 09/11/2023 (Approximate), Expires: 12/11/2023 [facility] Work Phone: Comment on above: Expected: 09/11/2023 (Approximate), Expi res: 12/11/2023 Start: 09-11-2023 End: 12-11-2023 Thyrotropin [Units/volume] in Serum or Plasma TSH BLD Lab Routine Acquired hypothyroidism Expected: 09/11/2023 (Approximate), Expires: 12/11/2023 [facility] Work Phone: Comment on above: Expected: 09/11/2023 (Approximate), Expi res: 12/11/2023 Start: 09-11-2023 End: 12-11-2023 Thyroxine (T4) free [Mass/volume] in Serum or Plasma T4 FREE/FREE THYROX Lab Routine Acquired hypothyroidism Expected: 09/11/2023 (Approximate), Expires: 12/11/2023 [facility] Work Phone: Comment on above: Expected: 09/11/2023 (Approximate), Expi res: 12/11/2023 Start: 09-11-2023 End: 12-11-2023 Triiodothyronine (T3) Free [Mass/volume] in Serum or Plasma T3 FREE BLD Lab Routine Acquired hypothyroidism Expected: 09/11/2023 (Approximate), Expires: 12/11/2023 [facility] Work Phone: Comment on above: Expected: 09/11/2023 (Approximate), Expi res: 12/11/2023 Start: 09-10-2023 Advance Directive Discussion Advance Directive Discussion [facility] Start: 08-09-2023 End: 08-09-2023 Patient encounter procedure 08/09/2023 Office Visit Urology Bessy Garcia MD [address] [facility] [place] [address] Division of Urological Surgery at [facility] Start: 07-28-2023 Hemoglobin A1c/Hemoglobin.total in Blood HBA1C [facility] Start: 06-15-2023 3 comp foot exam completed DIABETIC FOOT EXAM [facility] Start: 06-15-2023 Diabetic foot examination [facility]abetic Foot Exam [facility] Start: 06-15-2023 Glaucoma screening Dilated Retinal Exam [facility] Start: 06-15-2023 Hepatitis C antibody, confirmatory test DILATED RETINAL EXAM [facility] Start: 06-15-2023 End: 06-15-2023 [facility] Start: 06-15-2023 End: 06-15-2023 Administration of blood product [facility] Start: 06-14-2023 [facility] Start: 05-26-2023 Administration of blood product [facility] Start: 05-26-2023 [facility] Start: 05-26-2023 Transfusion of blood product [facility] Start: 05-26-2023 Venous catheter care management [facility] Start: 05-24-2023 Hepatitis B screening URINE ALBUMIN:CREATININE RATIO [facility] Start: 05-24-2023 Hepatitis B surface antibody level LDL CHOLESTEROL [facility] Start: 05-11-2023 Covid-19 Vaccine () Covid-19 Vaccine () [facility] Start: 05-11-2023 Influenza vaccination INFLUENZA (#1) [facility] Start: 04-30-2023 Patient referral [facility] Work Phone: Start: 04-19-2023 Blood chemistry [facility] Start: 04-19-2023 Magnesium [Mass/volume] in Serum or Plasma [facility] Start: 04-19-2023 [facility] Start: 04-19-2023 CBC W Auto Differential panel - Blood [facility] Start: 04-19-2023 Patient discharge [facility] Start: 04-19-2023 Removal of urinary catheter [facility] Start: 04-18-2023 Following clinical pathway protocol [facility] Start: 04-18-2023 Irrigation of urinary bladder [facility] Start: 04-18-2023 Measuring intake and output [facility] Start: 04-18-2023 Patient education [facility] Start: 04-18-2023 Provision of activity privileges [facility] Start: 04-18-2023 Taking patient vital signs [facility] Start: 04-18-2023 Vital signs measurements [facility] Start: 04-18-2023 [facility] Start: 04-18-2023 Admission procedure [facility] Start: 04-18-2023 Anesthesia transurethral resection of prostate ANESTH REMOVAL OF PROSTATE [facility] Start: 04-18-2023 Trurl electrosurg rescj prostate bleed complete PROSTATECTOMY (TURP) [facility] Start: 04-18-2023 [facility] Start: 02-13-2023 Anesthesia access central venous circulation ANESTH VASCULAR ACCESS [facility] Start: 02-13-2023 Insj tunneled ctr vad w/subq port age 4 yr/> INSERT TUNNELED CV CATH [facility] Start: 02-13-2023 Patient discharge [facility] Start: 02-01-2023 Patient referral [facility] Work Phone: Start: 12-13-2022 3 comp foot exam completed DIABETIC FOOT EXAM [facility] Start: 12-13-2022 ANNUAL PCP TEAM CHRONIC DISEASE VISIT ANNUAL PCP TEAM CHRONIC DISEASE VISIT [facility] Start: 12-08-2022 End: 06-08-2023 ALBUMIN/CREAT RATIO RND UR ALBUMIN/CREAT RATIO RND UR Lab Routine Controlled type 2 diabetes mellitus without complication, without long-term current use of insulin (HCC) Expected: 12/08/2022 (Approximate), Expires: 06/08/2023 [facility] Work Phone: Comment on above: Expected: 12/08/2022 (Approximate), Expi res: 06/08/2023 Start: 12-08-2022 End: 06-08-2023 CBC W Auto Differential panel - Blood CBC + DIFF Lab Routine Cough variant asthma Expected: 12/08/2022 (Approximate), Expires: 06/08/2023 [facility] Work Phone: Comment on above: Expected: 12/08/2022 (Approximate), Expi res: 06/08/2023 Start: 12-08-2022 End: 06-08-2023 Comprehensive metabolic 2000 panel - Serum or Plasma COMP METABOLIC PANEL Lab Routine Cough variant asthma Controlled type 2 diabetes mellitus without complication, without long-term current use of insulin (HCC) Acquired hypothyroidism Expected: 12/08/2022 (Approximate), Expires: 06/08/2023 [facility] Work Phone: Comment on above: Expected: 12/08/2022 (Approximate), Expi res: 06/08/2023 Start: 12-08-2022 End: 06-08-2023 Hemoglobin A1c in Blood HGB A1C Lab Routine Controlled type 2 diabetes mellitus without complication, without long-term current use of insulin (HCC) Expected: 12/08/2022 (Approximate), Expires: 06/08/2023 [facility] Work Phone: Comment on above: Expected: 12/08/2022 (Approximate), Expi res: 06/08/2023 Start: 12-08-2022 End: 06-08-2023 Lipid 1996 panel - Serum or Plasma LIPID PANEL BASIC Lab Routine Controlled type 2 diabetes mellitus without complication, without long-term current use of insulin (HCC) Mixed hyperlipidemia Expected: 12/08/2022 (Approximate), Expires: 06/08/2023 [facility] Work Phone: Comment on above: Expected: 12/08/2022 (Approximate), Expi res: 06/08/2023 Start: 12-08-2022 End: 06-08-2023 PSA/PROSTSPECAG SCRN PSA/PROSTSPECAG SCRN Lab Routine Benign prostatic hyperplasia without lower urinary tract symptoms Encounter for screening for malignant neoplasm of prostate Expected: 12/08/2022 (Approximate), Expires: 06/08/2023 [facility] Work Phone: Comment on above: Expected: 12/08/2022 (Approximate), Expi res: 06/08/2023 Start: 12-08-2022 End: 06-08-2023 Thyrotropin [Units/volume] in Serum or Plasma TSH BLD Lab Routine Acquired hypothyroidism Expected: 12/08/2022 (Approximate), Expires: 06/08/2023 [facility] Work Phone: Comment on above: Expected: 12/08/2022 (Approximate), Expi res: 06/08/2023 Start: 12-08-2022 End: 06-08-2023 Thyroxine (T4) free [Mass/volume] in Serum or Plasma T4 FREE/FREE THYROX Lab Routine Acquired hypothyroidism Expected: 12/08/2022 (Approximate), Expires: 06/08/2023 [facility] Work Phone: Comment on above: Expected: 12/08/2022 (Approximate), Expi res: 06/08/2023 Start: 12-08-2022 End: 06-08-2023 Triiodothyronine (T3) Free [Mass/volume] in Serum or Plasma T3 FREE BLD Lab Routine Acquired hypothyroidism Expected: 12/08/2022 (Approximate), Expires: 06/08/2023 [facility] Work Phone: Comment on above: Expected: 12/08/2022 (Approximate), Expi res: 06/08/2023 Start: 12-07-2022 Hepatitis B surface antibody level LDL CHOLESTEROL [facility] Start: 11-21-2022 Hemoglobin A1c/Hemoglobin.total in Blood HBA1C [facility] Start: 10-14-2022 COVID-19 VACCINE (5 - Moderna series) COVID-19 VACCINE (5 - Moderna series) [facility] Start: 09-10-2022 ADVANCE DIRECTIVE DISCUSSION ADVANCE DIRECTIVE DISCUSSION [facility] Start: 06-14-2022 End: 08-14-2022 ALBUMIN/CREAT RATIO RND UR ALBUMIN/CREAT RATIO RND UR Lab Routine Controlled type 2 diabetes mellitus without complication, without long-term current use of insulin (HCC) Expected: 06/14/2022 (Approximate), Expires: 08/14/2022 [facility] Work Phone: Comment on above: Expected: 06/14/2022 (Approximate), Expi res: 08/14/2022 Start: 06-14-2022 End: 08-14-2022 CBC panel - Blood by Automated count CBC Lab Routine Encounter for long-term current use of medication Expected: 06/14/2022 (Approximate), Expires: 08/14/2022 [facility] Work Phone: Comment on above: Expected: 06/14/2022 (Approximate), Expi res: 08/14/2022 Start: 06-14-2022 End: 08-14-2022 Comprehensive metabolic 2000 panel - Serum or Plasma COMP METABOLIC PANEL Lab Routine Controlled type 2 diabetes mellitus without complication, without long-term current use of insulin (HCC) Encounter for long-term current use of medication Expected: 06/14/2022 (Approximate), Expires: 08/14/2022 [facility] Work Phone: Comment on above: Expected: 06/14/2022 (Approximate), Expi res: 08/14/2022 Start: 06-14-2022 End: 08-14-2022 Hemoglobin A1c/Hemoglobin.total in Blood HGB A1C Lab Routine Controlled type 2 diabetes mellitus without complication, without long-term current use of insulin (HCC) Expected: 06/14/2022 (Approximate), Expires: 08/14/2022 [facility] Work Phone: Comment on above: Expected: 06/14/2022 (Approximate), Expi res: 08/14/2022 Start: 06-14-2022 End: 08-14-2022 LIPID PANEL BASIC LIPID PANEL BASIC Lab Routine Mixed hyperlipidemia Expected: 06/14/2022 (Approximate), Expires: 08/14/2022 [facility] Work Phone: Comment on above: Expected: 06/14/2022 (Approximate), Expi res: 08/14/2022 Start: 06-14-2022 SPIROMETRY SPIROMETRY [facility] Comment on above: Postponed from 1962 (Declined at t his time) Start: 06-14-2022 End: 08-14-2022 T4 FREE/FREE THYROX T4 FREE/FREE THYROX Lab Routine Acquired hypothyroidism Expected: 06/14/2022 (Approximate), Expires: 08/14/2022 [facility] Work Phone: Comment on above: Expected: 06/14/2022 (Approximate), Expi res: 08/14/2022 Start: 06-14-2022 End: 08-14-2022 Thyrotropin [Units/volume] in Serum or Plasma TSH BLD Lab Routine Acquired hypothyroidism Expected: 06/14/2022 (Approximate), Expires: 08/14/2022 [facility] Work Phone: Comment on above: Expected: 06/14/2022 (Approximate), Expi res: 08/14/2022 Start: 06-10-2022 ANNUAL PCP TEAM CHRONIC DISEASE VISIT ANNUAL PCP TEAM CHRONIC DISEASE VISIT [facility] Start: 06-01-2022 Hepatitis B screening URINE ALBUMIN:CREATININE RATIO [facility] Start: 06-01-2022 Hepatitis B surface antibody level LDL CHOLESTEROL [facility] Start: 05-11-2022 Influenza vaccination INFLUENZA (#1) [facility] Start: 03-09-2022 Hemoglobin A1c/Hemoglobin.total in Blood HBA1C [facility] Start: 12-07-2021 End: 02-06-2022 CBC panel - Blood by Automated count [facility] Work Phone: Comment on above: Expected: 12/07/2021, Expires: 2 Start: 12-07-2021 End: 02-06-2022 Comprehensive metabolic 2000 panel - Serum or Plasma [facility] Work Phone: Comment on above: Expected: 12/07/2021, Expires: 2 Start: 12-07-2021 End: 02-06-2022 Hemoglobin A1c/Hemoglobin.total in Blood [facility] Work Phone: Comment on above: Expected: 12/07/2021, Expires: 2 Start: 12-07-2021 End: 02-06-2022 LIPID PANEL BASIC [facility] Work Phone: Comment on above: Expected: 12/07/2021, Expires: 2 Start: 12-07-2021 End: 02-06-2022 T3 FREE BLD [facility] Work Phone: Comment on above: Expected: 12/07/2021, Expires: 2 Start: 12-07-2021 End: 02-06-2022 T4 FREE/FREE THYROX [facility] Work Phone: Comment on above: Expected: 12/07/2021, Expires: 2 Start: 12-07-2021 End: 02-06-2022 Thyrotropin [Units/volume] in Serum or Plasma [facility] Work Phone: Comment on above: Expected: 12/07/2021, Expires: 2 Start: 11-29-2021 Hemoglobin A1c/Hemoglobin.total in Blood HBA1C [facility] Start: 11-06-2021 COVID-19 VACCINE (4 - Booster for Moderna series) COVID-19 VACCINE (4 - Booster for Moderna series) [facility] Start: 09-10-2021 ADVANCE DIRECTIVE DISCUSSION ADVANCE DIRECTIVE DISCUSSION [facility] Start: 03-29-2021 3 comp foot [facility] Start: 02-22-2021 Hepatitis C antibody, confirmatory test DILATED RETINAL EXAM [facility] Start: 2019 RSV Vaccine (1 - 1-dose 75+ series) RSV Vaccine (1 - 1-dose 75+ series) [facility] Start: 01-23-2018 Screening for malignant neoplasm of colon COLORECTAL CANCER SCREENING DISCUSSION [facility] Start: 12-31-2015 PNEUMOCOCCAL: 65+ (3 - PPSV23 or PCV20) PNEUMOCOCCAL: 65+ (3 - PPSV23 or PCV20) [facility] Start: 2004 Hepatitis B Vaccine (1 of 3 - Risk 3-dose series) Hepatitis B Vaccine (1 of 3 - Risk 3-dose series) [facility] Start: 2004 RSV Vaccine (1 - 1-dose 60+ series) RSV Vaccine (1 - 1-dose 60+ series) [facility] Start: 1989 Screening for malignant neoplasm of colon COLORECTAL CANCER SCREENING DISCUSSION [facility] Start: 1962 Anxiety Screening Anxiety Screening [facility] Start: 1962 SPIROMETRY SPIROMETRY [facility] Start: 1944 COVID-19 VACCINE (#1) COVID-19 VACCINE (#1) [facility] Start: 1944 Hepatitis C screening HEPATITIS C VIRUS SCREENING [facility] Start: 1944 Thyroid stimulating hormone measurement TSH [facility] Anion gap measurement [facility] Bacteria identified in Wound by Culture ABSCESS AND WOUND CULTURE WITH GRAM STAIN Microbiology Routine Pustule Papule of skin 03/17/2024 3:07 PM EDT [facility] Work Phone: Blood chemistry [facility] Blood chemistry [facility] BUN/Creatinine ratio [facility] Calcium [Mass/volume ] in Serum or Plasma [facility] Carbon dioxide, tota l [Moles/volume] in Serum or Plasma [facility] End: 08-11-2025 CBC panel - Blood by Automated count COMPLETE BLOOD COUNT Lab Routine Controlled type 2 diabetes mellitus with diabetic polyneuropathy, without long-term current use of insulin (HCC) Every 4 months for 90 Occurrences starting 08/11/2024 until 08/11/2025 [facility] Comment on above: Every 4 months for 90 Occurrences starti ng 08/11/2024 until 08/11/2025 CBC W Auto Different ial panel - Blood [facility] CBC W Auto Different ial panel - Blood [facility] CBC W Auto Different ial panel - Blood [facility] CBC W Auto Different ial panel - Blood [facility] Chloride [Moles/volu me] in Serum or Plasma [facility] End: 08-11-2025 Comprehensive metabolic 2000 panel - Serum or Plasma COMPREHENSIVE METABOLIC PANEL Lab Routine Controlled type 2 diabetes mellitus with diabetic polyneuropathy, without long-term current use of insulin (HCC) Every 4 months for 90 Occurrences starting 08/11/2024 until 08/11/2025 [facility] Comment on above: Every 4 months for 90 Occurrences starti ng 08/11/2024 until 08/11/2025 Comprehensive metabo lic 2000 panel - Serum or Plasma [facility] Creatinine [Moles/vo lume] in Serum or Plasma [facility] CT Abdomen and Pelvi s W contrast IV [facility] Electrocardiographic procedure [facility] Glucose [Mass/volume ] in Serum or Plasma [facility] Hematocrit [Volume Fraction] of Blood [facility] Hemoglobin [Mass/vol ume] in Blood [facility] End: 08-11-2025 Hemoglobin A1c in Blood HEMOGLOBIN A1C Lab Routine Controlled type 2 diabetes mellitus with diabetic polyneuropathy, without long-term current use of insulin ([facility]) Every 4 months for 90 Occurrences starting 08/11/2024 until 08/11/2025 [facility] Comment on above: Every 4 months for 90 Occurrences starti ng 08/11/2024 until 08/11/2025 Leukocytes [#/volume ] in Blood [facility] End: 08-11-2025 Lipid 1996 panel - Serum or Plasma LIPID PANEL BASIC Lab Routine Controlled type 2 diabetes mellitus with diabetic polyneuropathy, without long-term current use of insulin ([facility]) Every 4 months for 90 Occurrences starting 08/11/2024 until 08/11/2025 [facility] Comment on above: Every 4 months for 90 Occurrences starti ng 08/11/2024 until 08/11/2025 Magnesium [Mass/volu me] in Serum or Plasma [facility] Magnesium [Mass/volu me] in Serum or Plasma [facility] Magnesium [Mass/volu me] in Serum or Plasma [facility] Magnesium [Mass/volu me] in Serum or Plasma [facility] Mean corpuscular hem oglobin concentration determination [facility] Mean corpuscular hem oglobin determination [facility] Measurement of renal function [facility] End: 08-11-2025 Microalbumin/Creatinine [Mass Ratio] in Urine ALBUMIN/CREATININE RATIO, URINE Lab Routine Controlled type 2 diabetes mellitus with diabetic polyneuropathy, without long-term current use of insulin ([facility]) Every 4 months for 90 Occurrences starting 08/11/2024 until 08/11/2025 [facility] Work Phone: Comment on above: Every 4 months for 90 Occurrences starti ng 08/11/2024 until 08/11/2025 Neutrophil count [facility] Neutrophil percent differential count [facility] Patient Education TURP Home Leopoldo very [facility] Recovery [facility] Work Phone: Patient referral [facility] Work Phone: Platelets [#/volume] in Blood [facility] Positron emission tomography with computed tomography [facility] Potassium [Moles/vol ume] in Serum or Plasma [facility] PT Unspecified body region W [facility] Red blood cell count [facility] Red cell distributio n width determination [facility] Sodium [Moles/volume ] in Serum or Plasma [facility] End: 07-15-2023 SPIROMETRY - BASELINE AND POST DILATOR SPIROMETRY - BASELINE AND POST DILATOR PFT Routine Cough variant asthma 1 Occurrences starting 06/15/2022 until 07/15/2023 [facility] Work Phone: Comment on above: 1 Occurrences starting 06/15/2022 until 07/15/2023 SPIROMETRY - BASELIN E AND POST DILATOR SPIROMETRY - BASELINE AND POST DILATOR PFT Routine Cough variant asthma 07/03/2022 11:15 AM EDT [facility] Work Phone: Urea nitrogen [Mass/ volume] in Serum or Plasma [facility] Immunizations Immunization Date Immunization Notes Care Provider Fa [facility] 06-10-2024 influenza, high dose seasonal, preservative-free Matteo Rebollar MD Work Phone: [facility] 06-10-2024 influenza virus vaccine, unspecified formulation Bessy Garcia MD Work Phone: [facility] 08-07-2023 COVID-19 vaccine, ag e 12+ yr, season (PFIZER-BIONTECH) Matteo Rebollar MD Work Phone: [facility] 06-29-2023 influenza (HD-IIV4) vaccine, age 65+ yr, high dose, quadrivalent, PF (FLUZONE HIGH-DOSE) Immunization Tiff Work Phone: [facility] Work Phone: 06-29-2023 influenza virus vaccine, unspecified formulation Raoul Cash MD Work Phone: [facility] 06-13-2022 COVID-19 booster vaccine, age 12+ yr, bivalent (PFIZER-BIONTECH) Angely Clements APRN.THREAD SPINNER Work Phone: [facility] Work Phone: 06-13-2022 COVID-19 vaccine, ag e 12+ yr, bivalent (MODERNA) Matteo Rebollar MD Work Phone: [facility] 06-13-2022 influenza, high-dose , quadrivalent vaccine (FLUZONE HIGH DOSE QUADRIVALENT) Angely Clements COMMISSARY PRODUCTION SUPERVISOR.THREAD SPINNER Work Phone: [facility] Work Phone: 06-10-2021 influenza, high-dose , quadrivalent vaccine (FLUZONE HIGH DOSE QUADRIVALENT) Matteo Rebollar MD Work Phone: [facility] 07-09-2020 influenza, high-dose , quadrivalent vaccine (FLUZONE HIGH DOSE QUADRIVALENT) Matteo Rebollar MD Work Phone: [facility] Work Phone: 07-01-2020 zoster vaccine recombinant Matteo Rebollar MD Work Phone: [facility] Work Phone: 03-29-2020 zoster vaccine recombinant Matteo Rebollar MD Work Phone: [facility] Work Phone: 05-20-2019 influenza, high dose seasonal, preservative-free Matteo Rebollar MD Work Phone: [facility] Work Phone: 02-21-2019 tetanus toxoid, redu landon diphtheria toxoid, and acellular pertussis vaccine, adsorbed Matteo Rebollar MD Work Phone: [facility] 07-13-2018 influenza, high dose seasonal, preservative-free Matteo Rebollar MD Work Phone: [facility] 08-14-2017 influenza, high dose seasonal, preservative-free Matteo Rebollar MD Work Phone: [facility] 07-05-2016 influenza, high dose seasonal, preservative-free Matteo Rebollar MD Work Phone: [facility] 07-05-2015 influenza, high dose seasonal, preservative-free Matteo Rebollar MD Work Phone: [facility] 12-30-2014 pneumococcal conjuga te vaccine, 13 valent Matteo Rebollar MD Work Phone: [facility] 06-11-2014 influenza, seasonal, injectable Matteo Rebollar MD Work Phone: [facility] 06-11-2013 influenza virus vaccine, unspecified formulation Matteo Rebollar MD Work Phone: [facility] Work Phone: 10-18-2012 zoster vaccine, live Matteo dennison MD Work Phone: [facility] 07-20-2012 influenza virus vaccine, unspecified formulation Matteo Rebollar MD Work Phone: [facility] 07-01-2011 influenza virus vaccine, unspecified formulation Matteo Rebollar MD Work Phone: [facility] 07-29-2010 influenza virus vaccine, unspecified formulation Matteo Rebollar MD Work Phone: [facility] 06-24-2009 influenza virus vaccine, unspecified formulation Matteo Rebollar MD Work Phone: [facility] 03-24-2009 pneumococcal polysaccharide vaccine, 23 valent Matteo Rebollar MD Work Phone: [facility] 03-24-2009 tetanus and diphther ia toxoids, adsorbed, preservative free, for adult use (2 Lf of tetanus toxoid and 2 Lf of diphtheria toxoid) Matteo Rebollar MD Work Phone: [facility] 07-16-2008 influenza virus vaccine, unspecified formulation Matteo Rebollar MD Work Phone: [facility] 08-13-2007 influenza virus vaccine, unspecified formulation Matteo Rebollar MD Work Phone: [facility] Payers Date Payer Category Payer Unknown [id number] 2023 Self-pay [id number] 2022 Managed Care (unspecified) MEDICARE SUPPLEMENT [id number] 2020 Private Health Insurance [facility] [id number] 2020 Unknown [facility] MEDICARE SUPPLEMENT [id number] 2020-Present [phone] [id number] [place] [address] Indemnity [id number] 2020 Unknown [id number]. [id number] 2020 Unknown [id number] 2009 Medicare MEDICARE MEDICAR E A AND B [id number] 2009-Present [phone] [place] [address] Medicare [id number] 2009 Medicare [id number] 2009 Medicare [id number] 1945 Unknown [id number]. 594 Unknown [id number] Unknown [id number] Unknown [id number]. 462 Unknown [id number]. 462 Unknown [id number] 2.840.1.467473.3.579.2. 462 Unknown [id number] 2.16840.1.867297.3.579.2. 462 Unknown [id number] 2.0.1.936775.3.579.2. 462 Unknown [id number] 2.16.840.1.025297.3.579.2. 462 Unknown [id number] 2.16.840.1.297780.3.579.2. 462 Unknown [id number] 2.16.840.1.120317.3.579.2. 462 Unknown [id number] 2.16.840.1.866213.3.579.2. 462 Unknown [id number] 2.16.840.1.928318.3.579.2. 462 Unknown [id number] 2.16.840.1.691557.3.579.2. 462 Unknown [id number] 2.16.840.1.640909.3.579.2. 462 Unknown [id number] 2.16.840.1.078573.3.579.2. 462 Unknown [id number] 2.16.840.1.832428.3.579.2. 462 Unknown [id number] 2.16.840.1.620200.3.579.2. 462 Unknown [id number] 2.16.840.1.536538.3.579.2. 462 Unknown [id number] 2.16.840.1.394003.3.579.2. 462 Unknown [id number] 2.16.840.1.474345.3.579.2. 462 Unknown [id number] 2.16.840.1.705503.3.579.2. 462 Unknown [id number] 2.16.840.1.857965.3.579.2. 462 Social History Date Type Detail Facility [facility] Start: 1945 Sex Assigned At Male [facility] Start: 10-04-2011 End: 06-15-2022 Tobacco smoking status SDIS Never smoked tobacco [facility] Work Phone: History of tobacco use Cigar Smoker [facility] Work Phone: Start: 10-04-2011 End: 04-03-2024 Tobacco use and exposure Smokeless tobacco non-user [facility] Work Phone: Start: 08-12-2021 End: 04-02-2025 Alcohol intake Current drinker of alcohol (finding) [facility] Start: 09-09-2019 End: 01-30-2023 History SDOH Alcohol Frequency 2 [facility] Start: 09-09-2019 End: 01-30-2023 History SDOH Alcohol Std Drinks 1 [facility] Start: 05-22-2016 History SDOH Alcohol Comment 2 x weekly [facility] Start: 09-09-2019 End: 01-30-2023 History SDOH Social Connections Yarsani 3 [facility] Start: 2020 End: 01-30-2023 History SDOH Social Connections Meetings 98 [facility] Start: 09-09-2019 End: 01-30-2023 History SDOH Financial 5 [facility] Start: 09-09-2019 Education 21 [facility] Start: 02-15-2012 End: 06-15-2022 Tobacco Comment occasionally smoke a cigar [facility] Start: 1945 Sex Assigned At Not on file [facility] Start: 12-12-2021 End: 01-30-2023 History SDOH Physical Activity DPW 4 [facility] Start: 12-03-2021 End: 06-15-2022 Exposure to SARS-CoV-2 (event) Not sure [facility] Start: 01-18-2022 End: 04-13-2023 Tobacco smoking status [facility] Unknown if ever smoked [facility] History of tobacco use Passive smoker [facility] Start: 07-03-2022 Tobacco smoking status NHIS Occasional tobacco smoker [facility] Start: 01-12-2023 End: 06-04-2024 Tobacco smoking status NHIS Ex-smoker [facility] Start: 09-10-1963 End: 09-10-1983 History of tobacco use Current smoker [facility] Start: 09-10-1963 End: 09-10-1983 History of tobacco use Cigarette Smoker [facility] Start: 01-12-2023 End: 04-03-2024 Cigarette pack-years [facility] Start: 01-12-2023 Tobacco Comment less than 10 cigarettes per day [facility] Start: 01-12-2023 Alcohol Comment never a large consumer of alcohol [facility] Start: 01-30-2023 End: 04-03-2024 Social connection and isolation panel [facility] In a typical week, h ow many times do you talk on the telephone with family, friends, or neighbors? Patient refused [facility] Do you belong to any clubs or organizations such as nondenominational groups, unions, fraFishki or athletic groups, or school groups? Yes [facility] Are you now , , , , never or living with a partner? [facility] How often to you hav e a drink containing alcohol? Monthly or less [facility] How many standard dr inks containing alcohol do you have on a typical day? 1 or 2 [facility] How often do you hav e 6 or more drinks on 1 occasion? Never [facility] Do you feel stress - tense, restless, nervous, or anxious, or unable to sleep at night because your mind is troubled all the time - these days [OSQ] To some extent [facility] (I/We) worried wheth er (my/our) food would run out before (I/we) got money to buy more. Never true [facility] In the past 12 month s, was there a time when you were not able to pay the mortgage or rent on time? No [facility] How often to you hav e a drink containing alcohol? 2-4 times a month [facility] Do you feel stress - tense, restless, nervous, or anxious, or unable to sleep at night because your mind is troubled all the time - these days [OSQ] Only a little [facility] Start: 12-29-2022 Sex Male (finding) [facility] Medical Equipment Procedure Code Equipment Code Equipment Original Text Equipment Identifier Dates Insertion, vascular access port ([id number]) Vascular port/catheter [id number] FDA Start: 02-13-2023 [id number], [id number], [id number], [id number], [id number], [id number], [id number], [id number] Start: 09-27-2020 End: 09-05-2024 Comment on above: Test blood sugar(s) once daily and as needed. Dx: controlled type 2 diabetes without complication. Insulin: no Test blood sugar(s) once daily an as needed. Dx: controlled type 2 diabetes without complication. Insulin: no 1 Strip once daily. Use as instructed Test blood sugar(s) once daily. Dx: controlled type 2 diabetes without complication. Insulin: no Test blood sugar(s) twice daily and as needed. Dx: Uncontrolled type 2 diabetes without complication E11.65. Insulin: no Goals Date Patient Goal Desired Activity /State Functional Status Date Assessment Result Facility 04-19-2023 Functional status Ambulates [facility] Work Phone: 12-30-2014 Are you deaf, or do you have serious difficulty hearing No 12/30/2014 10:35 AM Maya Ortiz LPN [facility] 12-30-2014 Are you blind, or do you have serious difficulty seeing, even when wearing glasses No 12/30/2014 10:35 AM Maya Ortiz LPN [facility] 12-30-2014 Do you have serious difficulty walking or climbing stairs No 12/30/2014 10:35 AM Maya Ortiz LPN No [facility] 12-30-2014 Do you have difficul ty dressing or bathing No 12/30/2014 10:35 AM Maya Ortiz LPN [facility] 12-30-2014 Because of a physica l, mental, or emotional condition, do you have difficulty doing errands alone such as visiting a physician's office or shopping No 12/30/2014 10:35 AM Maya Ortiz LPN No [facility] Mental Status Date Assessment Result Facility 02-16-2025 Cognitive function Voice/Name [facility] Work Phone: 06-29-2023 Cognitive function Awake;Alert;A ppropriate; Follows Commands [facility] Work Phone: 06-22-2023 Cognitive function Arousable To Voice/Nam e [facility] Work Phone: 04-19-2023 Cognitive function Voice/Name [facility] Work Phone: 04-13-2023 Cognitive function Awake;Alert;A ppropriate; Follows Commands [facility] Work Phone: 04-12-2023 Cognitive function Voice/Name [facility] Work Phone: 02-13-2023 Cognitive function Voice/Name [facility] Work Phone: 12-30-2014 Because of a physica l, mental, or emotional condition, do you have serious difficulty concentrating, remembering, or making decisions No 12/30/2014 10:35 AM EDT Maya Andre LPN No [facility] Clinical Notes 01-10-2015 to 06-17-2025 Prerna Sharif RN - 04/02/2025 10:00 AM Randall Garcia MD - 04/02/2025 10:00 AM Randall Garcia MD - 04/02/2025 10:00 AM EDT Note Date & Type Note Facility 06-17-2025 Note HNO ID: [id number] Author: DEANN DUEÑAS MA Service: ? Author Type: Adjunct Art History Instructor Type: Progress Notes Filed: 06/17/2025 08:33 Note Text: POPULATION HEALTH NAVIGATION OUTREACH Action/FYI Spoke to the patient and informed him to have lab work done before his appointment (A1C and others). He was agreeable to flu shot at his appointment and this was added to the notes. Topic Due (Y or N) Comments Annual Wellness Exam No PCP Follow up No Colorectal Cancer Screening No A1C Yes Mammogram No BP Control No Dilated Retinal Exam No KED No HCC No Flu Vaccine Yes Updated appointment notes Yes Reason for Outreach Care Gap/HCC or Scheduling Wellness Visits Care Gaps due: HBA1C Flu Vaccine Patient Contacted: Spoke to patient/parent/or legal guardian Patient identified by name and : Yes Care Gap/HCC/Scheduling Wellness actions taken: Updated appointment note Patient will walk in for labs Navigation Signature: Deann Dueñas MA June 17, 2025 8:32 AM [facility] 06-17-2025 Note Patient Outreach (NE TNAV) DEBO HULL ([id number]) 1945 M Date Time Provider Department 06/17/25 DEANN DUEÑAS During your visit today, we recorded the following information about you: Deann Dueñas MA 06/17/2025 8:33 AM Signed POPULATION HEALTH NAVIGATION OUTREACH Action/FYI Spoke to the patient and informed him to have lab work done before his appointment (A1C and others). He was agreeable to flu shot at his appointment and this was added to the notes. Topic Due (Y or N) Comments Annual Wellness Exam No PCP Follow up No Colorectal Cancer Screening No A1C Yes Mammogram No BP Control No Dilated Retinal Exam No KED No HCC No Flu Vaccine Yes Updated appointment notes Yes Reason for Outreach Care Gap/HCC or Scheduling Wellness Visits Care Gaps due: HBA1C Flu Vaccine Patient Contacted: Spoke to patient/parent/or legal guardian Patient identified by name and : Yes Care Gap/HCC/Scheduling Wellness actions taken: Updated appointment note Patient will walk in for labs Navigation Signature: Deann Dueñas MA June 17, 2025 8:32 AM Allergies As of Date: 06/17/2025 Noted Allergy Reaction METFORMIN 09/16/2019 6 - Diarrhea 8 - GI Upset Comments: Tried 2 doses and had adverse effects each time IPRATROPIUM 08/07/2023 14 - Other: See Comments Comments: In albuterol inhaler Breathing difficulty SEASONAL ALLERGIES 06/18/2010 3 - Cough Comments: hayfever Date Reviewed: 02/13/2025 Reviewed by: Dixon Rosen APRN.COUNSEL - Fully Assessed Reason for Visit: Population Health Navigation Outreach [3910] Cmt: Tiff/Workbench/ACO Prescriptions as of 06/17/2025 - glipiZIDE (GLUCOTROL XL) 2.5 mg 24 hr tablet Take 1 tablet by mouth once daily. - albuterol HFA (VENTOLIN HFA) 90 mcg/actuation inhaler Inhale 2 puffs as instructed every 4 hours as needed for wheezing/shortness of breath. - levothyroxine (SYNTHROID) 112 mcg tablet Take 1 tablet by mouth once daily. - buPROPion XL (WELLBUTRIN XL) 150 mg 24 hr tablet Take 1 tablet by mouth once daily. - atorvastatin (LIPITOR) 40 mg tablet Take 1 tablet by mouth once daily. - sildenafil (VIAGRA) 100 mg tablet Take half to whole pill as directed prior to intercourse. - blood sugar diagnostic (TRUE METRIX GLUCOSE TEST STRIP) test strip 1 Strip once daily. Use as instructed - Lancets (ONETOUCH ULTRASOFT LANCETS) Test blood sugar(s) twice daily and as needed. Dx: Uncontrolled type 2 diabetes without complication E11.65. Insulin: no Problem List As Of Date 06/17/2025 Noted Resolved Pure hypercholesterolemia [E78.00] 02/13/2006 Impaired fasting glucose [R73.01] 03/24/2009 08/14/2017 Urinary retention [R33.9] 07/05/2011 06/11/2013 Benign prostatic hyperplasia without lower urin*07/05/2011 Urinary retention with incomplete bladder empty*08/21/2011 06/11/2013 Atypical nevus of abdominal wall [D22.5] 02/18/2012 Melanocytic nevi of trunk [D22.5] 02/18/2012 Seborrheic Keratoses [L82.1] 02/18/2012 Solar Lentigines [L81.4] 02/18/2012 Actinic skin damage [L57.8] 02/18/2012 Braun angioma [D18.01] 02/18/2012 Cutaneous skin tags [L91.8] 02/18/2012 Surgical Scars [L90.5] 02/18/2012 Depression [F32.A] 03/27/2012 Nontoxic uninodular goiter [E04.1] 04/10/2012 Follicular tumor of thyroid gland (uncertain if*04/16/2012 Atypical nevus [D22.9] 04/16/2012 06/11/2013 Multinodular goiter [E04.2] 05/21/2012 ED (erectile dysfunction) [N52.9] 02/10/2013 Hypothyroidism [E03.9] 06/17/2015 Cough variant asthma [J45.991] 12/10/2013 History of urinary retention [Z87.898] 05/21/2014 Elevated CK [R74.8] 01/10/2015 Obesity (BMI 30.0-34.9) [E66.811] 01/10/2015 09/16/2019 Acquired hypothyroidism [E03.9] 06/17/2015 Diabetes mellitus type 2, controlled, without c*02/04/2016 BPH loc w/o ur obs/LUTS [N40.0] 05/22/2016 Overweight (BMI 25.0-29.9) [E66.3] 09/16/2019 Thrombocytopenia (HCC) [D69.6] 10/24/2020 Mixed hyperlipidemia [E78.2] 10/24/2020 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 At this time, he wished to stop surveillance and so was instructed to RTC PRN. He continues to follow with local oncologist, Dr. Robby Benitez with his last OV being on 03/05/2025. Continues with routine surveillance imaging with his last set on 02/16/2025 (stable, per outside OV note). Denies GH, dysuria, UTI, changes in LUTS. Interval history includes a short hospitalization requiring cardiac cath in May (negative). Follows with local [facility] who has cleared him for another year. documented in this encounter [facility] 04-02-2025 Procedure note Associated Ord er(s): CYSTOSCOPY Post-Procedure Diagnose(s): Bladder carcinoma CYSTOSCOPY Date/Time: 04/02/2025 10:00 AM Performed by: Bessy Garcia MD Authorized by: Bessy Garcia MD The attending physician was present for the entire procedure. Pre-Procedure: Indications: bladder cancer (S/p TMT desiring cystoscopy for surveillance) Detailed information of all possible complications and side effects were discussed with the patient, these include but not only; UTI, sepsis, hematuria, incontinence, urethral injury and cardiovascular complications. Informed consent was obtained. Does this procedure require a [place] Protocol? Yes. [place] Protocol is required. Procedure: Procedure performed: cystoscopy The patient was placed supine with all pressure points well padded. Patient was prepped and draped in the usual sterile fashion with chlorhexidine. 10 mL of lidocaine 2% topical gel was inserted into urethra for local anesthesia. A penile clamp was not applied. The flexible cystoscope was lubricated and placed into the urethral tract under direct visualization. A 360 survey of the bladder was performed. The cystoscope was reflected and the bladder neck and the ureteral orifices were inspected. The findings are detailed below. The cystoscope was removed following any additional procedures documented below. Findings: The urinary meatus appeared normal. There was not a prominent median lobe. The lateral lobes were not obstructive in appearance. No tumors observed. No bladder fistula present. No foreign bodies observed. No stones found. Severe trabeculations were found. Both ureteral orifices were normal in size, shape and position with efflux of clear urine. The urethra was inspected. No foreign body(s) present in urethra. No urethral diverticulum observed. No urethral stricture found. Post Procedure: Patient tolerated procedure with no immediate complications EBL: no blood loss Procedure Comments: LUISANA. Stable cystoscopy. The patient expressed that this is likely the last cystoscopy for surveillance purposes that he will obtain but should he changes mind he was advised that he is free to return any time, he denied obstructive/irritative voiding symptoms and denied gross hematuria [facility] 04-02-2025 Procedure note Associated Ord er(s): CYSTOSCOPY Post-Procedure Diagnose(s): Bladder carcinoma CYSTOSCOPY Date/Time: 04/02/2025 10:00 AM Performed by: Bessy Garcia MD Authorized by: Bessy Garcia MD The attending physician was present for the entire procedure. Pre-Procedure: Indications: bladder cancer (S/p TMT desiring cystoscopy for surveillance) Detailed information of all possible complications and side effects were discussed with the patient, these include but not only; UTI, sepsis, hematuria, incontinence, urethral injury and cardiovascular complications. Informed consent was obtained. Does this procedure require a [place] Protocol? Yes. [place] Protocol is required. Procedure: Procedure performed: cystoscopy The patient was placed supine with all pressure points well padded. Patient was prepped and draped in the usual sterile fashion with chlorhexidine. 10 mL of lidocaine 2% topical gel was inserted into urethra for local anesthesia. A penile clamp was not applied. The flexible cystoscope was lubricated and placed into the urethral tract under direct visualization. A 360 survey of the bladder was performed. The cystoscope was reflected and the bladder neck and the ureteral orifices were inspected. The findings are detailed below. The cystoscope was removed following any additional procedures documented below. Findings: The urinary meatus appeared normal. There was not a prominent median lobe. The lateral lobes were not obstructive in appearance. No tumors observed. No bladder fistula present. No foreign bodies observed. No stones found. Severe trabeculations were found. Both ureteral orifices were normal in size, shape and position with efflux of clear urine. The urethra was inspected. No foreign body(s) present in urethra. No urethral diverticulum observed. No urethral stricture found. Post Procedure: Patient tolerated procedure with no immediate complications EBL: no blood loss Procedure Comments: LUISANA. Stable cystoscopy. 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 March 09, 2025 9:08am Dilated aortic root acute March 17, 2025 8:54am Nonobstructive atherosclerosis of coronary artery acute March 17, 2025 8:54am Bladder cancer chronic June 01, 2025 8:53am 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 June 2021 TURBT: Invasive papillary urothelial carcinoma, low grade 2/3, tumor invades lamina propria and no lymphovascular invasion identified. Patient received intravesical Mitomycin-C and BCG. August 2021 TURBT: Papillary urothelial carcinoma low-grade 1/3 noninvasive. Patient was then placed on surveillance. November 2022 patient noted a left inguinal painless enlarged lymph node. November 29, 2022 CT abdomen and pelvis: IMPRESSION: Diffuse bladder wall thickening with prostatic enlargement and prostatic calcifications. There is evidence of indentation of the bladder base. Stable hepatic cysts. There is evidence of a 2.4 cm x 1.4 cm lymph node in the right inguinal region. Smaller lymph nodes are also seen in both inguinal regions more prominent on the right side. December 05, 2022 Right groin lymph node, core biopsy: Lymph node tissue with metastatic non-small cell carcinoma. See comment. IHC profile is compatible with clinical impression of urothelial primary. Focal squamous differentiation is also noted. Pathology was reviewed at [facility] for a second opinion and concurred with the urothelial origin. December 18, 2022 PET/CT initial staging: IMPRESSION: 1. ABNORMAL EXAMINATION INDICATIVE OF MALIGNANT-VIABLE NEOPLASM. 2. Increased radiopharmaceutical concentration defined in the right inguinal region fulfills quantitative criteria for neoplasia. 3. Enhanced tracer uptake noted in the region of the base of the prostate gland does not fulfill quantitative criteria for malignant transformation. December 20, 2022 brain MRI staging: IMPRESSION: 1.? Moderate chronic changes of the brain, as described above. 2.? There are no focal brain parenchymal lesions or abnormally enhancing lesions. No vasogenic edema or mass effect is seen. There is no abnormal thickening or enhancement of meninges or dura or skull. June 26, 2023 PET/CT restaging: IMPRESSION: 1. ABNORMAL EXAMINATION INDICATIVE OF MALIGNANT-VIABLE NEOPLASM. 2. Increased radiopharmaceutical concentration defined in the left mid abdominal mesentery fulfills quantitative criteria for malignant transformation. 3. There is interim resolution of the prior defined right inguinal hypermetabolic focus. 4. Overall, compared to the prior FDG PET CT study dated 12/18/22, there is current expressed viable neoplasm within the context of the left paramedian abdominal mesentery with interim resolution of the prior defined right inguinal hypermetabolic focus. June 29, 2023 CT scan of the abdomen and pelvis with oral and IV contrast: IMPRESSION: 1. Asymmetric wall thickening of the urinary bladder which will need further follow-up to differentiate cystitis from neoplasm. 2. Improving changes of mesenteric panniculitis. November 27, 2023 PET/CT: IMPRESSION: 1. ABNORMAL EXAMINATION INDICATIVE OF MALIGNANT-VIABLE NEOPLASM. 2. Increased radiopharmaceutical concentration redefined in the mid abdominal mesentery fulfills quantitative criteria for viable neoplasm. 3. Overall, compared to the prior FDG PET CT study dated 06/26/2023, there is continued demonstrated viable neoplasia within the context of the left mid abdominal mesentery, manifesting an interval quantitative partial metabolic response. February 20, 2024 CT abdomen and pelvis: IMPRESSION: Small lymph nodes are seen in the root of the mesentery. No masses seen. The previously seen area of increased markings has improved. The remainder of examination is unchanged. August 13, 2024 CT chest abdomen and pelvis: IMPRESSION: Stable examination. Diffuse bladder wall thickening and prostatic enlargement with central prostatic calcifications. February 16, 2025 CT chest abdomen and pelvis: IMPRESSION: Stable exam. Treatment summary and response: Cisplatin gemcitabine February 20, 2023-June 11, 2023 (6 cycles) CR TURP for obstructive symptoms April 18, 2023 07/16/2023 ? 08/20/2023: received consolidative radiation therapy consisting of 4500 cGy delivered to the right inguinal lymph node region with a simultaneous integrated boost to 5500 cGy delivered tothe concerning lymph nodes all in 25 fractions. He was treated using a VMAT technique using 6 MV photons. 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 cancer Wears glasses Diabetes Arthritis Former smoker Asthma History of echocardiogram History of stress test Skin lesion Thyroid disease High blood cholesterol Surgical History S/P TURP (status post transurethral resection of prostate) History of transurethral resection of bladder tumor (TURBT) History of cystoscopy Hx of transurethral destruction of bladder lesion Hx of colonoscopy History of thyroidectomy Family History Mother Colon cancer Grandmother Colon cancer Grandfather CVA (cerebral vascular accident) Grandmother CVA (cerebral vascular accident) Social History Smoking Status: Former smoker alcohol intake: never ROS Constitutional Constitutional: Reports systems reviewed and no addt'l complaints, except as documented; Denies fatigue, fever(s) or weight loss Eyes Eyes: Reports systems reviewed and no addt'l complaints, except as documented ENT HEENT: Reports systems reviewed and no addt'l complaints, except as documented; Denies mouth lesions Cardiovascular Cardiovascular: Reports systems reviewed and no addt'l complaints, except as documented; Denies chest pain with activity or edema Respiratory/Chest Respiratory/Chest: Reports systems reviewed and no addt'l complaints, except as documented; Denies cough or dyspnea Gastrointestinal Gastrointestinal: Reports systems reviewed and no addt'l complaints, except as documented; Denies abdominal pain or change in bowel habits Genitourinary Genitourinary: Reports systems reviewed and no addt'l complaints, except as documented; Denies hematuria Musculoskeletal Musculoskeletal: Reports systems reviewed and no addt'l complaints, except as documented; Denies back pain Integumentary Integumentary: Reports systems reviewed and no addt'l complaints, except as documented Neurologic Neurologic: Reports systems reviewed and no addt'l complaints, except as documented, memory loss and paresthesias RLE and LLE; Denies frequent falls Psychiatric Psychiatric: Reports systems reviewed and no addt'l complaints, except as documented Endocrine Endocrinology: Reports systems reviewed and no addt'l complaints, except as documented Hematologic/Lymphatic Hematologic/Lymphatic: Denies easy bleeding or lymphadenopathy Allergic/Immunologic Allergic/Immunologic: Reports systems reviewed and no addt'l complaints, except as documented and as per HPI Intake Vital Signs 08/25/24 14:00 02/16/25 08:57 03/05/25 13:31 Height 5 ft 10 in 5 ft 10 in 5 ft 10 in Weight: 196 lb BMI 28.1 BP 110/72 Blood Pressure Location Rt brachial Position Sitting Respiration 18 Pulse 86 Pulse Source Monitor Temp 97.8 F Temperature Source Temporal Artery Pulse Oximetry (%) 95 Oxygen Delivery Method room air Intake Is patient in pain?: No Allergies ipratropium (From Atrovent) Allergy (Severe, Verified 03/05/25 13:30) Other Medications ?Medication ?Instructions ?Recorded ?Confirmed ?Type bupropion HCl 150 mg 24 hr tablet, 150 mg PO QAM [facility] 02/27/24 03/05/25 History extended release (Wellbutrin XL) albuterol sulfate 90 mcg/actuation 2 puff inhalation Q 8H PRN wheezing 06/04/24 03/05/25 History aerosol inhaler levothyroxine 112 mcg tablet 112 mcg PO .qam thyroid 0 06/04/24 03/05/25 History aspirin 81 mg tablet,delayed 81 mg PO BREAKFAST #0 tab s 06/06/24 03/05/25 Rx release atorvastatin 40 mg tablet 40 mg PO QHS #30 tabs 03/05/25 Rx sildenafil 100 mg tablet 100 mg PO QDAY PRN ED 03/05/25 History glipizide 2.5 mg tablet, extended mg PO Diabetes 03/0503/05/25 History release 24 hr Have you fallen in the past year?: No Central Venous Access Central Venous Access: Yes Port/PICC: Port Exam Physical Exam Const alert, oriented x3 and no apparent distress General Appearance: cooperative and comfortable Coding Diagnoses Malignant neoplasm of overlapping sites of bladder C67.8 Bladder location: overlapping sites 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 Patient is status post TURBT for invasive bladder cancer June 2021 (T1) and asecond TURBT when residual non invasive cancer was found. Patient received Mitomycin-C and BCG 2020. Presented with painless enlargement of the right inguinal lymph nodes pathologically confirmed to be metastatic urothelial cancer November 2022 ([place] and [facility] pathology departments both concurred). Staging in December 2022 with PET/CT and brain MRI showed no evidence of distant metastatic disease elsewhere. A nonspecific tracer uptake noted at the base of the prostate. Cystoscopy twice in 2022 ([address] Ross and at [facility]) did not reveal a new primary. Received neoadjuvant cisplatin gemcitabine February?June (6 cycles) imaging in June 2023 shows complete resolution of the abnormal uptake in the right groin. Abnormal uptake of SUV initially of 8 decreasing to 3 without any treatment (anticancer/anti-inflammatory) in the mesentery that can not be further characterized on the PET is indeterminate and not amenable to a noninvasive surgical tissue biopsy which is unwarranted in the absence of any symptoms. Underwent TURP April 18, 2023 for obstructive symptoms with improvement. Received consolidation radiation to right inguinal region July - August 2023. The most recent imaging of August 2024 shows no evidence for recurrent metastatic disease. Chronic comorbid conditions: Diabetes, peripheral neuropathy, dyslipidemia, reactive airways disease, nonspecific arthritis and transient visual disturbancein September 2022 resolved. Plan: Patient is on surveillance now. There is no evidence to suggest active cancer at this time. 1-CT scan of the abdomen and pelvis with IV contrast in 6 months, to schedule August 2025 2-Elective cystoscopy at [facility] urology as instructed. Patient was seen with his , impression and plan discussed. March 05, 2025 visit was through telehealth video Robby Bentiez MD [employer], [facility] Divisions of Medical Oncology & Hematology Department of Internal Medicine [facility] [place] [phone] This note was generated using a voice recognition system software. Although itwas reviewed by the author prior to finalization, it may still contain incorrectwords, spelling, and punctuation that were not noted when reviewing prior to saving. If a clinically significant typo or inaccurately typed phrase is noted, please notify the author. Clinical Quality Measures Falls Risk Screening/Assistive Devices Have you fallen in the past year?: No 03/05/25 1345 el EID> Date _ Robby Benitez MD Cosigner Signature: Date (if applicable) CC: Dr. Matteo Rebollar MD ~ [facility]06-26-2025 Progress note Author Robby Benitez [facility] Note Date/Time March 05, 2025 1:45 pm [facility] [address] [address] OFFICE VISIT Date of Service: 03/05/25 1330 MR#: [id number] Acct: [id number] Name: DEBO HULL Rep #: [id number] : 1945 From: Robby danielle MD Age/Sex: 79/M Location: [facility] [place] Status: Signed HPI Subjective Date of Service 03/05/25 Chief Complaint metastatic urothelial carcinoma History of Present Illness 77-year-old gentleman with recurrent metastatic urothelial carcinoma. June 2021 TURBT: Invasive papillary urothelial carcinoma, low grade 2/3, tumor invades lamina propria and no lymphovascular invasion identified. Patient received intravesical Mitomycin-C and BCG. August 2021 TURBT: Papillary urothelial carcinoma low-grade 1/3 noninvasive. Patient was then placed on surveillance. November 2022 patient noted a left inguinal painless enlarged lymph node. November 29, 2022 CT abdomen and pelvis: IMPRESSION: Diffuse bladder wall thickening with prostatic enlargement and prostatic calcifications. There is evidence of indentation of the bladder base. Stable hepatic cysts. There is evidence of a 2.4 cm x 1.4 cm lymph node in the right inguinal region. Smaller lymph nodes are also seen in both inguinal regions more prominent on the right side. December 05, 2022 Right groin lymph node, core biopsy: Lymph node tissue with metastatic non-small cell carcinoma. See comment. IHC profile is compatible with clinical impression of urothelial primary. Focal squamous differentiation is also noted. Pathology was reviewed at [facility] for a second opinion and concurred with the urothelial origin. December 18, 2022 PET/CT initial staging: IMPRESSION: 1. ABNORMAL EXAMINATION INDICATIVE OF MALIGNANT-VIABLE NEOPLASM. 2. Increased radiopharmaceutical concentration defined in the right inguinal region fulfills quantitative criteria for neoplasia. 3. Enhanced tracer uptake noted in the region of the base of the prostate gland does not fulfill quantitative criteria for malignant transformation. December 20, 2022 brain MRI staging: IMPRESSION: 1.? Moderate chronic changes of the brain, as described above. 2.? There are no focal brain parenchymal lesions or abnormally enhancing lesions. No vasogenic edema or mass effect is seen. There is no abnormal thickening or enhancement of meninges or dura or skull. June 26, 2023 PET/CT restaging: IMPRESSION: 1. ABNORMAL EXAMINATION INDICATIVE OF MALIGNANT-VIABLE NEOPLASM. 2. Increased radiopharmaceutical concentration defined in the left mid abdominal mesentery fulfills quantitative criteria for malignant transformation. 3. There is interim resolution of the prior defined right inguinal hypermetabolic focus. 4. Overall, compared to the prior FDG PET CT study dated 12/18/22, there is current expressed viable neoplasm within the context of the left paramedian abdominal mesentery with interim resolution of the prior defined right inguinal hypermetabolic focus. June 29, 2023 CT scan of the abdomen and pelvis with oral and IV contrast: IMPRESSION: 1. Asymmetric wall thickening of the urinary bladder which will need further follow-up to differentiate cystitis from neoplasm. 2. Improving changes of mesenteric panniculitis. November 27, 2023 PET/CT: IMPRESSION: 1. ABNORMAL EXAMINATION INDICATIVE OF MALIGNANT-VIABLE NEOPLASM. 2. Increased radiopharmaceutical concentration redefined in the mid abdominal mesentery fulfills quantitative criteria for viable neoplasm. 3. Overall, compared to the prior FDG PET CT study dated 06/26/2023, there is continued demonstrated viable neoplasia within the context of the left mid abdominal mesentery, manifesting an interval quantitative partial metabolic response. February 20, 2024 CT abdomen and pelvis: IMPRESSION: Small lymph nodes are seen in the root of the mesentery. No masses seen. The previously seen area of increased markings has improved. The remainder of examination is unchanged. August 13, 2024 CT chest abdomen and pelvis: IMPRESSION: Stable examination. Diffuse bladder wall thickening and prostatic enlargement with central prostatic calcifications. February 16, 2025 CT chest abdomen and pelvis: IMPRESSION: Stable exam. Treatment summary and response: Cisplatin gemcitabine February 20, 2023-June 11, 2023 (6 cycles) CR TURP for obstructive symptoms April 18, 2023 07/16/2023 ? 08/20/2023: received consolidative radiation therapy consisting of 4500 cGy delivered to the right inguinal lymph node region with a simultaneous integrated boost to 5500 cGy delivered to the concerning lymph nodes all in 25 fractions. He was treated using a VMAT technique using 6 MV photons. 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 cancer Wears glasses Diabetes Arthritis Former smoker Asthma History of echocardiogram History of stress test Skin lesion Thyroid disease High blood cholesterol Surgical History S/P TURP (status post transurethral resection of prostate) History of transurethral resection of bladder tumor (TURBT) History of cystoscopy Hx of transurethral destruction of bladder lesion Hx of colonoscopy History of thyroidectomy Family History Mother Colon cancer Grandmother Colon cancer Grandfather CVA (cerebral vascular accident) Grandmother CVA (cerebral vascular accident) Social History Smoking Status: Former smoker alcohol intake: never ROS Constitutional Constitutional: Reports systems reviewed and no addt'l complaints, except as documented; Denies fatigue, fever(s) or weight loss Eyes Eyes: Reports systems reviewed and no addt'l complaints, except as documented ENT HEENT: Reports systems reviewed and no addt'l complaints, except as documented; Denies mouth lesions Cardiovascular Cardiovascular: Reports systems reviewed and no addt'l complaints, except as documented; Denies chest pain with activity or edema Respiratory/Chest Respiratory/Chest: Reports systems reviewed and no addt'l complaints, except as documented; Denies cough or dyspnea Gastrointestinal Gastrointestinal: Reports systems reviewed and no addt'l complaints, except as documented; Denies abdominal pain or change in bowel habits Genitourinary Genitourinary: Reports systems reviewed and no addt'l complaints, except as documented; Denies hematuria Musculoskeletal Musculoskeletal: Reports systems reviewed and no addt'l complaints, except as documented; Denies back pain Integumentary Integumentary: Reports systems reviewed and no addt'l complaints, except as documented Neurologic Neurologic: Reports systems reviewed and no addt'l complaints, except as documented, memory loss and paresthesias RLE and LLE; Denies frequent falls Psychiatric Psychiatric: Reports systems reviewed and no addt'l complaints, except as documented Endocrine Endocrinology: Reports systems reviewed and no addt'l complaints, except as documented Hematologic/Lymphatic Hematologic/Lymphatic: Denies easy bleeding or lymphadenopathy Allergic/Immunologic Allergic/Immunologic: Reports systems reviewed and no addt'l complaints, except as documented and as per HPI Intake Vital Signs 08/25/24 14:00 02/16/25 08:57 03/05/25 13:31 Height 5 ft 10 in 5 ft 10 in 5 ft 10 in Weight: 196 lb BMI 28.1 BP 110/72 Blood Pressure Location Rt brachial Position Sitting Respiration 18 Pulse 86 Pulse Source Monitor Temp 97.8 F Temperature Source Temporal Artery Pulse Oximetry (%) 95 Oxygen Delivery Method room air Intake Is patient in pain?: No Allergies ipratropium (From Atrovent) Allergy (Severe, Verified 03/05/25 13:30) Other Medications ?Medication ?Instructions ?Recorded ?Confirmed ?Type bupropion HCl 150 mg 24 hr tablet, 150 mg PO QAM [facility] 02/27/24 03/05/25 History extended release (Wellbutrin XL) albuterol sulfate 90 mcg/actuation 2 puff inhalation Q 8H PRN wheezing 06/04/24 03/05/25 History aerosol inhaler levothyroxine 112 mcg tablet 112 mcg PO .qam thyroid 0 06/04/24 03/05/25 History aspirin 81 mg tablet,delayed 81 mg PO BREAKFAST #0 tab s 06/06/24 03/05/25 Rx release atorvastatin 40 mg tablet 40 mg PO QHS #30 tabs 03/05/25 Rx sildenafil 100 mg tablet 100 mg PO QDAY PRN ED 03/05/25 History glipizide 2.5 mg tablet, extended mg PO Diabetes 03/0503/05/25 History release 24 hr Have you fallen in the past year?: No Central Venous Access Central Venous Access: Yes Port/PICC: Port Exam Physical Exam Const alert, oriented x3 and no apparent distress General Appearance: cooperative and comfortable Coding Diagnoses Malignant neoplasm of overlapping sites of bladder C67.8 Bladder location: overlapping sites 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 Patient is status post TURBT for invasive bladder cancer June 2021 (T1) and asecond TURBT when residual non invasive cancer was found. Patient received Mitomycin-C and BCG 2020. Presented with painless enlargement of the right inguinal lymph nodes pathologically confirmed to be metastatic urothelial cancer November 2022 ([place] and [facility] pathology departments both concurred). Staging in December 2022 with PET/CT and brain MRI showed no evidence of distant metastatic disease elsewhere. A nonspecific tracer uptake noted at the base of the prostate. Cystoscopy twice in 2022 ([address] Ross and at [facility]) did not reveal a new primary. Received neoadjuvant cisplatin gemcitabine February?June (6 cycles) imaging in June 2023 shows complete resolution of the abnormal uptake in the right groin. Abnormal uptake of SUV initially of 8 decreasing to 3 without any treatment (anticancer/anti-inflammatory) in the mesentery that can not be further characterized on the PET is indeterminate and not amenable to a noninvasive surgical tissue biopsy which is unwarranted in the absence of any symptoms. Underwent TURP April 18, 2023 for obstructive symptoms with improvement. Received consolidation radiation to right inguinal region July - August 2023. The most recent imaging of August 2024 shows no evidence for recurrent metastatic disease. Chronic comorbid conditions: Diabetes, peripheral neuropathy, dyslipidemia, reactive airways disease, nonspecific arthritis and transient visual disturbancein September 2022 resolved. Plan: Patient is on surveillance now. There is no evidence to suggest active cancer at this time. 1-CT scan of the abdomen and pelvis with IV contrast in 6 months, to schedule August 2025 2-Elective cystoscopy at [facility] as instructed. Patient was seen with his , impression and plan discussed. March 05, 2025 visit was through telehealth video Robby Benitez MD [employer], [facility] Divisions of Medical Oncology & Hematology Department of Internal Medicine [place] [id number] This note was generated using a voice recognition system software. Although itwas reviewed by the author prior to finalization, it may still contain incorrectwords, spelling, and punctuation that were not noted when reviewing prior to saving. If a clinically significant typo or inaccurately typed phrase is noted, please notify the author. Clinical Quality Measures Falls Risk Screening/Assistive Devices Have you fallen in the past year?: No 03/05/25 1345 <Electronically signed by Robby gallegos MD> Date _ Robby Benitez MD Cosigner Signature: Date (if applicable) CC: Dr. Matteo Rebollar MD ~ [facility] [employer] Work Phone: 1(475) 703-849706-18-2025 Telephone encounter Note* Telephone Encounter - Maya Andre LPN - 02/25/2025 11:03 AM EDT PATIENT NOTIFIED OF SAME. [facility]06-18-2025 Miscellaneous Notes* Telephone Encounter - Maya Andre LPN - 02/25/2025 11:03 AM EDT PATIENT NOTIFIED OF SAME. * Telephone Encounter - Catalina Causey LPN - 02/23/2025 9:53 AM EDT Left message to return call. * Telephone Encounter - Matteo Rebollar MD - 02/19/2025 7:56 PM EDT Let patient know needed to change since not on formulary. Sent to [facility] since that was who contacted about coverage and where [facility] had sent the prescription but if patient will be running out of med before shipment comes, can send to [facility] as was pended The following approved medication requests have been transmitted electronically. Requested Prescriptions Signed Prescriptions Disp Refills glipiZIDE (GLUCOTROL XL) 2.5 mg 24 hr tablet 90 tablet 3 Sig: Take 1 tablet by mouth once daily. Authorizing Provider: MATTEO REBOLLAR MD * Telephone Encounter - Rosi Young RN - 02/18/2025 10:36 AM EDT Y[place] Pharmacist with [facility] [facility] calls to report that glipizide 2.5 mg generic is not covered bypatient's insurance. Options would be to switch to Glipizide IR 5 mg or Glipizide ER 2.5 mg, 5 mg, 10 mg. Pended 2.5 mg ER dose for review. Asking for a new prescription to be sent or if not ok then requests call back at [phone] Ref #[id number]. Rosi Young RN documented in this encounterOhio[facility]06-[facility]-2025 Telephone encounter Note * Telephone Encounter - Catalina Causey LPN - 02/23/2025 9:53 AM EDT Left message to return call. [facility]06-12-2025 Telephone encounter Note* Telephone Encounter - Matteo Rebollar MD - 02/19/2025 7:56 PM EDT Let patient know needed to change since not on formulary. Sent to [facility] since that was who contacted about coverage and where [facility] had sent the prescription but if patient will be running out of med before shipment comes, [facility] The following approved medication requests have been transmitted electronically. Requested Prescriptions Signed Prescriptions Disp Refills glipiZIDE (GLUCOTROL XL) 2.5 mg 24 hr tablet 90 tablet 3 Sig: Take 1 tablet by mouth once daily. Authorizing Provider: MATTEO REBOLLAR MD [facility]06-11-2025 Telephone encounter Note* Telephone Encounter - Rosi Young RN - 02/18/2025 10:36 AM EDT Y[place] Pharmacist with [facility] calls to report that glipizide 2.5 mg generic is not covered bypatient's insurance. Options would be to switch to Glipizide IR 5 mg or Glipizide ER 2.5 mg, 5 mg, 10 mg. Pended 2.5 mg ER dose for review. Asking for a new prescription to be sent or if not ok then requests call back at [phone] Ref #[id number]. Rosi Young RN [facility]06-10-2025 Radiology Diagnostic study note [facility] [address] [place] [address] CT Chest, Abd, Pel w/Contrast MR#: [id number] Acct: [id number] Name: DEBO HULL Rep #: [id number] : 1945 M 79 From: Ger Yo MD PCP: Dr. Matteo Rebollar MD Status: RE G CLI Study:CT Chest, Abd, Pel w/Contrast Date of E xam: 02/16/25 Exam# [id number] Ordering Dr: Robby Benitez MD PROCEDURE: CT CHEST, ABD, PEL W/CONTRAST 02/16/2025 REASON FOR EXAM: F/U METS UROTHELIAL CANCER IV CONTRAST ONLY TECHNIQUE: Chest, abdomen and pelvis CT with intravenous contrast. Coronal and Sagittal reconstruction series were provided. One or more dose reduction techniques were used (e.g., Automated exposure control, adjustment of the mA and/or kV according to patient size, use of iterative reconstruction technique. PATIENT PREPARATION: Per protocol ORAL CONTRAST TYPE: None. CONTRAST: Isovue 350. VOLUME: 100mL RADIATION DOSE SUMMARY: CTDlvol: 17.63 mGy DLP: 1500 mGycm COMPARISON: 08/13/2024. FINDINGS: A right-sided portacatheter is seen with the tip in the superior vena cava. Small fat-containing bilateral axillary lymph nodes, unchanged. Unchanged calcifications of the coronary arteries. Unchanged diffuse spondylosis. Unchanged hepatic steatosis. Unchanged 2 cm right renal simple cyst. Unchanged smaller hepatic cysts. Unchanged small sliding hiatal hernia. Unchanged atheromatous plaques of the aorta and its branches. Unchanged small bilateral fat containing inguinal hernias without incarceration. Unchanged diffuse spondylosis. Unchanged prostatomegaly. Unchanged scattered central prostatic calcifications. Unchanged mild diffuse thickening of the wall of the bladder. Normal enhancement of the main pulmonary artery and right and left pulmonary arteries. Normal enhancement of the bilateral peripheral pulmonary arteries. There is no demonstrated pulmonary embolism. Normal thoracic aorta and visualized great vessels. There is no demonstrated aortic dissection. Normal heart and pericardium. Normal mediastinum. Normal hilar regions. Normal visualized trachea and bronchi. The lungs are well expanded. Normal pulmonary parenchyma. Normal pleura. Normal gallbladder and extrahepatic biliary system. Normal spleen. Normal pancreas. Normal bilateral adrenal glands. Normal size of the right kidney. There is no right renal mass. There are no right renal calculi. There is no right hydronephrosis. Normal visualized right ureter. Normal size of the left kidney. There is no left renal mass. There are no leftrenal calculi. There is no left hydronephrosis. Normal visualized left ureter. Normal visualized stomach. Normal small intestine. Normal colon. The appendix is visualized and appears normal. There is no demonstrated peritoneal fluid. Normal inferior vena cava. Normal retroperitoneum. There is no pelvic mass lesion or lymphadenopathy. There is no pelvic fluid. CT/CT Chest, Abd, Pel w/Contrast IMPRESSION: Stable exam. [facility] CC: Dr. Matteo Rebollar MD; Dr. Robby Benitez MD ~ [employer] Clerk: Signed [facility]06-09-2025 Telephone encounter Note* Telephone Encounter - Darlyn Blank RN - 02/16/2025 1:20 PM EDT Pharmacy calls and is questioning the albuterol prescription because it is requesting the [employer] manufacture. Pharmacy states that [employer] does not make inhaler. Pharmacy is cancelling this order. Called and spoke with patient's , Dipika. Dipika states that those directions can be taken off of prescription. Please send prescription back to [facility] without added manufacture directions. The patient has been identified by name and date of : Yes Caregiver verified no other encounters exist for this prescription request: Yes Caregiver confirmed with patient/requestor that no other refills are due, in the near future, with this provider at this time: Yes The last office visit in the department: 02/13/2025 Does the patient have a future office visit with this provider/department: Yes 08/19/2025 Requested Prescriptions Pending Prescriptions Disp Refills albuterol HFA (VENTOLIN HFA) 90 mcg/actuation inhaler 1 each 2 Sig: Inhale 2 puffs as instructed every 4 hours as needed for wheezing/shortness of breath. Darlyn Blank RN February 16, 2025 1:27 PM [facility]06-09-2025 Miscellaneous Notes* Telephone Encounter - Darlyn Blank RN - 02/16/2025 1:20 PM EDT Pharmacy calls and is questioning the albuterol prescription because it is requesting the [employer] manufacture. Pharmacy states that [employer] does not make inhaler. Pharmacy is cancelling this order. Called and spoke with patient's , Dipika. Dipika states that those directions can be taken off of prescription. Please send prescription back to [facility] without added manufacture directions. The patient has been identified by name and date of : Yes Caregiver verified no other encounters exist for this prescription request: Yes Caregiver confirmed with patient/requestor that no other refills are due, in the near future, with this provider at this time: Yes The last office visit in the department: 02/13/2025 Does the patient have a future office visit with this provider/department: Yes 08/19/2025 Requested Prescriptions Pending Prescriptions Disp Refills albuterol HFA (VENTOLIN HFA) 90 mcg/actuation inhaler 1 each 2 Sig: Inhale 2 puffs as instructed every 4 hours as needed for wheezing/shortness of breath. Darlyn Blank RN February 16, 2025 1:27 PM documented in this encounterOhio[facility]06-[facility]-2025 NoteHNO ID: [id number] Author: DIXON ROSEN APRN.COUNSEL Service: ? Author Type: Nurse Practitioner Type: Progress Notes Filed: 02/13/2025 08:11 Note Text: SUBJECTIVE Debo Hull is a 79 year old male here today for a check up on his medical problems. Chief Complaint Patient presents with: F/U 6 months HPI Manav Hull is a 79-year-old male with a history of stage IV cancer, presenting for follow-up on elevated A1c levels. Manav reports that his most recent A1c level was elevated. He has not been taking his glyburide, previously dosed at 5 mg BID, for approximately 2 years, discontinuing it around the time he began chemotherapy. He expresses willingness to restart the medication at a lower dose to manage his blood glucose levels. He also reports neuropathy in his feet, which he finds frustrating. He has been taking vitamin E as recommended by his radiation oncologist, but is uncertain if it has provided any benefit. The neuropathy affects his ability to carry items up and down the stairs in his three-story home, and he expresses concern about the risk of falling. He notes that he has to hold onto the railing when using the stairs and has stopped driving at night due to a lack of confidence in his abilities. Manav is scheduled for a CT scan next month and hopes that if the results are favorable, he will not need another scan for a year. 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 Had labs done, overall doing well with taking his medications. His medications were reviewed today and his list is now up to date. Medications Current Outpatient Medications Medication Sig sildenafil (VIAGRA) 100 mg tablet Take half to whole pill as directed prior to intercourse. albuterol HFA (VENTOLIN HFA) 90 mcg/actuation inhaler Inhale 2 puffs as instructed every 4 hours as needed for wheezing/shortness of breath. Patient requests [employer] brand 60 puffs for $9 levothyroxine (SYNTHROID) 112 mcg tablet Take 1 tablet by mouth once daily. buPROPion XL (WELLBUTRIN XL) 150 mg 24 hr tablet Take 1 tablet by mouth once daily. atorvastatin (LIPITOR) 40 mg tablet Take 1 tablet by mouth once daily. glipiZIDE 2.5 mg tablet Take 1 tablet by mouth daily before breakfast. As directed blood sugar diagnostic (TRUE METRIX GLUCOSE TEST STRIP) test strip 1 Strip once daily. Use as instructed Lancets (ONETOUCH ULTRASOFT LANCETS) Test blood sugar(s) twice daily and as needed. Dx: Uncontrolled type 2 diabetes without complication E11.65. Insulin: no No current facility-administered medications for this visit. 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 Thrombocytopenia - 10/24/2020 Mixed Hyperlipidemia - 10/24/2020 Overweight (Bmi 25.0-29.9) - 09/16/2019 Bph Loc W/O Ur Obs/Luts - 05/22/2016 Diabetes Mellitus Type 2, Controlled, Without Complications (Hcc) - 02/04/2016 Acquired Hypothyroidism - 06/17/2015 Elevated Ck - 01/10/2015 History of Urinary Retention - 05/21/2014 Cough Variant Asthma (Hcc) - 12/10/2013 Ed (Erectile Dysfunction) - 02/10/2013 Multinodular Goiter - 05/21/2012 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) - 04/16/2012 Nontoxic Uninodular Goiter - 04/10/2012 Depression - 03/27/2012 Atypical Nevus of Abdominal Wall - 02/18/2012 Melanocytic Nevi of Trunk - 02/18/2012 Seborrheic Keratoses - 02/18/2012 Solar Lentigines - 02/18/2012 Actinic Skin Damage - 02/18/2012 Braun Angioma - 02/18/2012 Cutaneous Skin Tags - 02/18/2012 Surgical Scars - 02/18/2012 Benign Prostatic Hyperplasia Without Lower Urinary Tract Symptoms - 07/05/2011 Pure Hypercholesterolemia - 02/13/2006 Social History Tobacco Use Smoking status: Some Days Types: Cigars Passive exposure: Yes Smokeless tobacco: Never Tobacco comments: occasionally smoke a cigar Substance Use Topics Alcohol use: Yes Comment: 2 x weekly Drug use: No Review of Systems Constitutional: Negative. Respiratory: Negative. Cardiovascular: Negative. OBJECTIVE BP 120/68 Pulse 76 Resp 12 Wt 200 lb 9.9 oz (91.0kg) Physical Exam Vitals and nursing note reviewed. Constitutional: General: He is awake. He is not in acute distress. Appearance: Normal appearance. He is well-developed and well-groomed. He is not ill-appearing, toxic-appearing or diaphoretic. HENT: Head: Normocephalic. Right Ear: External ear normal. Left Ear: External ear normal. Nose: Nose normal. Eyes: General: Vision grossly intact. Conjunctiva/sclera: Conjunctivae normal. Pupils: Pupils (more content not included)...[facility] 02-13-2025 History of Present illness Narrative* Dixon Rosen APRN.COUNSEL - 02/13/2025 7:29 AM EDT SUBJECTIVE Debo Hull is a 79 year old male here today for a check up on his medical problems. Chief Complaint Patient presents with: F/U 6 months HPI Manav Hull is a 79-year-old male with a history of stage IV cancer, presenting for follow-up on elevated A1c levels. Manav reports that his most recent A1c level was elevated. He has not been taking his glyburide, previously dosed at 5 mg BID, for approximately 2 years, discontinuing it around the time he began chemotherapy. He expresses willingness to restart the medication at a lower dose to manage his blood glucose levels. He also reports neuropathy in his feet, which he finds frustrating. He has been taking vitamin E asrecommended by his radiation oncologist, but is uncertain if it has provided any benefit. The neuropathy affects his ability to carry items up and down the stairs in his three-story home, and he expresses concern about the risk of falling. He notes that he has to hold onto the railing when using the stairs and has stopped driving at night due to a lack of confidence in his abilities. Manav is scheduled for a CT scan next month and hopes that if the results are favorable, he will notneed another scan for a year. 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 Had labs done, overall doing well with taking his medications. His medications were reviewed today and his list is now up to date. Medications Current Outpatient Medications Medication Sig sildenafil (VIAGRA) 100 mg tablet Take half to whole pill as directed prior to intercourse. albuterol HFA (VENTOLIN HFA) 90 mcg/actuation inhaler Inhale 2 puffs as instructed every 4 hours asneeded for wheezing/shortness of breath. Patient requests [employer] brand 60 puffs for $9 levothyroxine (SYNTHROID) 112 mcg tablet Take 1 tablet by mouth once daily. buPROPion XL (WELLBUTRIN XL) 150 mg 24 hr tablet Take 1 tablet by mouth once daily. atorvastatin (LIPITOR) 40 mg tablet Take 1 tablet by mouth once daily. glipiZIDE 2.5 mg tablet Take 1 tablet by mouth daily before breakfast. As directed blood sugar diagnostic (TRUE METRIX GLUCOSE TEST STRIP) test strip 1 Strip once daily. Use as instructed Lancets (trueAnthemUCH ULTRASOFT LANCETS) Test blood sugar(s) twice daily and as needed. Dx: Uncontrolled type 2 diabetes without complication E11.65. Insulin: no No current facility-administered medications for this visit. 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 Thrombocytopenia - 10/24/2020 Mixed Hyperlipidemia - 10/24/2020 Overweight (Bmi 25.0-29.9) - 09/16/2019 Bph Loc W/O Ur Obs/Luts - 05/22/2016 Diabetes Mellitus Type 2, Controlled, Without Complications ([facility]) - 02/04/2016 Acquired Hypothyroidism - 06/17/2015 Elevated Ck - 01/10/2015 History of Urinary Retention - 05/21/2014 Cough Variant Asthma ([facility]) - 12/10/2013 Ed (Erectile Dysfunction) - 02/10/2013 Multinodular Goiter - 05/21/2012 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) - 04/16/2012 Nontoxic Uninodular Goiter - 04/10/2012 Depression - 03/27/2012 Atypical Nevus of Abdominal Wall - 02/18/2012 Melanocytic Nevi of Trunk - 02/18/2012 Seborrheic Keratoses - 02/18/2012 Solar Lentigines - 02/18/2012 Actinic Skin Damage - 02/18/2012 Braun Angioma - 02/18/2012 Cutaneous Skin Tags - 02/18/2012 Surgical Scars - 02/18/2012 Benign Prostatic Hyperplasia Without Lower Urinary Tract Symptoms - 07/05/2011 Pure Hypercholesterolemia - 02/13/2006 Social History Tobacco Use Smoking status: Some Days Types: Cigars Passive exposure: Yes Smokeless tobacco: Never Tobacco comments: occasionally smoke a cigar Substance Use Topics Alcohol use: Yes Comment: 2 x weekly Drug use: No Review of Systems Constitutional: Negative. Respiratory: Negative. Cardiovascular: Negative. OBJECTIVE BP 120/68 Pulse 76 Resp 12 Wt 200 lb 9.9 oz (91.0kg) Physical Exam Vitals and nursing note reviewed. Constitutional: General: He is awake. He is not in acute distress. Appearance: Normal appearance. He is well-developed and well-groomed. He is not ill-appearing, toxic-appearing or diaphoretic. HENT: Head: Normocephalic. Right Ear: External ear normal. Left Ear: External ear normal. Nose: Nose normal. Eyes: General: Vision grossly intact. Conjunctiva/sclera: Conjunctivae normal. Pupils: Pupils are equal, round, and reactive to light. Neck: Vascular: No JVD. Trachea: Trachea normal. Cardiovascular: Rate and Rhythm: Normal rate and regular rhythm. Pulses: Normal pulses. Heart sounds: Normal heart sounds. No murmur heard. Pulmonary: Effort: Pulmonary effort is normal. No accessory muscle usage, prolonged expiration or respiratory distress. Breath sounds: Normal breath sounds. Musculoskeletal: Cervical back: Neck supple. Skin: General: Skin is warm and dry. Capillary Refill: Capillary refill takes less than 2 seconds. Neurological: General: No focal deficit present. Mental Status: He is alert and oriented to person, place, and time. Mental status is at baseline. Psychiatric: Attention and Perception: Attention and perception normal. Mood and Affect: Mood and affect normal. Speech: Speech normal. Behavior: Behavior normal. Behavior is cooperative. Thought Content: Thought content normal. Cognition and Memory: Cognition and memory normal. Judgment: Judgment normal. ASSESSMENT/PLAN: 1. Controlled type 2 diabetes mellitus with diabetic polyneuropathy, without long-term current use of insulin (HCC) (E11.42) Hemoglobin A1c is elevated. Patient has not been taking glyburide for approximately two years. Neuropathy in feet is present. - Restart glyburide at 2.5 mg PO daily with breakfast; prescription sent to [facility]. - Monitor blood glucose levels to ensure A1c remains below 8%. 2. Acquired hypothyroidism (E03.9) Thyroid function tests are within normal limits. 3. Essential (primary) hypertension (I10) Blood pressure is well-controlled. 4. Mixed hyperlipidemia (E78.2) Lipid panel is within normal limits. 5. 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 Follow-up with Dr. Rebollar in August. 6. 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 Portions of this note have been entered by ancillary staff. I have reviewed and when necessary edited, so that they are an adequate record of my encounter with this patient Please note that parts of this document were created using voice recognition software and therefore may contain grammatical errors. Patient verbalizes understanding of instructions from today's visit and in agreement with treatmentplan. Questions answered. Agrees to call the office if questions, concerns of issues with acute symptoms not improving or if they worsen. See diagnoses and orders for additional plan(s). Allergies and medications were reviewed, list was updated, and refills given if needed. Past medical, surgical, social, and family history reviewed and updated as appropriate. Encouraged proper diet & exercise as well as compliance with taking medications. Age- appropriate health preventative measures were discussed. Return if symptoms worsen or fail to improve, for Keep next scheduled appointment.. Dixon Rosen APRN-SEFERINO documented in this encounterOhiohealth [facility]03-24-[facility] Evaluation note* Diagnosis Onset Date Resolution Status Admit Date Bladder cancer chronic November 8:51am Malignant neoplasm metastati c to inguinal lymph node chronic November 8:51am [facility] Work Phone: 1(665) 916-542903-24-2025 Evaluation note* Diagnosis Onset Date Resolution Status Admit Date Bladder cancer chronic November 8:51am Malignant neoplasm metastati c to inguinal lymph node chronic November 8:51am Bladder cancer chronic March 05, 2025 1:17pm Malignant neoplasm metastati c to inguinal lymph node chronic February 1:17pm [facility] Work Phone: 1(110) 680-375603-24-2025 Evaluation note* Diagnosis Onset Date Resolution Status Admit Date Bladder cancer chronic November 8:51am Malignant neoplasm metastati c to inguinal lymph node chronic November 8:51am Bladder cancer chronic March 05, 2025 1:17pm Malignant neoplasm metastati c to inguinal lymph node chronic February 1:17pm Bladder cancer chronic March 09, 2025 9:08am Malignant neoplasm metastati c to inguinal lymph node chronic February 9:08am [facility] Work Phone: 1(181) 562-544303-12-2025 NoteHNO ID: [id number] Author: DIXON ROSEN APRN.COUNSEL Service: ? Author Type: Nurse Practitioner Type: Progress Notes Filed: 11/19/2024 08:24 Note Text: SUBJECTIVE Debo Hull is a 79 year old male here today for a check up on his medical problems. Chief Complaint Patient presents with: Medication Follow-up HPI Manav Hull is an 79-year-old male, with a history of cancer, DM, and hypothyroidism, presenting for evaluation of adverse effects from sertraline, including constipation and significant sexual dysfunction. Manav reports experiencing adverse effects from sertraline, including constipation and significant sexual dysfunction. He describes a marked decrease in libido, difficulty maintaining erections, and an absence of orgasms, which he finds devastating. These issues persist despite the use of Viagra. He has been taking sertraline for an extended period and, after researching its side effects, believes it is the cause of his sexual dysfunction. He expresses a desire to discontinue sertraline but is concerned about potential withdrawal symptoms. His , an RN, advised him to consult with his healthcare provider before making any changes. Mood-thompson, Manav reports feeling pretty good and describes his grumpiness as manageable. He attributes some irritability to the aches and pains of aging and expresses gratitude for his long life. He acknowledges occasional irritability towards his , who has been supportive throughout his cancer treatments, and expresses regret for these moments. Manav has completed his cancer treatments and is currently undergoing monitoring with CT scans every 6 months. He mentions a recent cardiac episode in the fall, which resulted in a brief hospitalization at [facility]. The attending physician attributed the episode to dehydration and confirmed that no cardiac damage occurred. He denies experiencing any chest pain or tightness since then. Manav also manages DM, with his last HbA1c recorded at 7.4% in June. He monitors his blood glucose levels every other day and reports stable readings. He is also on medication for hypothyroidism, which he states is well-controlled. He reports no issues with his neuropathy with today's visit. His medications were reviewed today and his list is now up to date. Medications Current Outpatient Medications Medication Sig levothyroxine (SYNTHROID) 112 mcg tablet Take 1 tablet by mouth once daily. atorvastatin (LIPITOR) 40 mg tablet Take 1 tablet by mouth once daily. buPROPion XL (WELLBUTRIN XL) 150 mg 24 hr tablet Take 1 tablet by mouth once daily. albuterol HFA (VENTOLIN HFA) 90 mcg/actuation inhaler Inhale 2 Puffs as instructed every 4 hours as needed for wheezing/shortness of breath. Patient requests Relion brand 60 puffs for $9 sildenafil (VIAGRA) 100 mg tablet Take half to whole pill as directed prior to intercourse. blood sugar diagnostic (TRUE METRIX GLUCOSE TEST STRIP) test strip 1 Strip once daily. Use as instructed Lancets (trueAnthemUCH ULTRASOFT LANCETS) Test blood sugar(s) twice daily and as needed. Dx: Uncontrolled type 2 diabetes without complication E11.65. Insulin: no glipiZIDE (GLUCOTROL) 5 mg tablet Take 1 tablet by mouth twice daily before meals. As directed (Patient taking differently: Take 5 mg by mouth two times a day before meals. Taking as needed.) No current facility-administered medications for this visit. 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 Thrombocytopenia ([facility]) - 10/24/2020 Mixed Hyperlipidemia - 10/24/2020 Overweight (Bmi 25.0-29.9) - 09/16/2019 Bph Loc W/O Ur Obs/Luts - 05/22/2016 Diabetes Mellitus Type 2, Controlled, Without Complications ([facility]) - 02/04/2016 Acquired Hypothyroidism - 06/17/2015 Elevated Ck - 01/10/2015 History of Urinary Retention - 05/21/2014 Cough Variant Asthma - 12/10/2013 Ed (Erectile Dysfunction) - 02/10/2013 Multinodular Goiter - 05/21/2012 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) - 04/16/2012 Nontoxic Uninodular Goiter - 04/10/2012 Depression - 03/27/2012 Atypical Nevus of Abdominal Wall - 02/18/2012 Melanocytic Nevi of Trunk - 02/18/2012 Seborrheic Keratoses - 02/18/2012 Solar Lentigines - 02/18/2012 Actinic Skin Damage - 02/18/2012 Braun Angioma - 02/18/2012 Cutaneous Skin Tags - 02/18/2012 Surgical Scars - 02/18/2012 Benign Prostatic Hyperplasia Without Lower Urinary Tract Symptoms - 07/05/2011 Pure Hypercholesterolemia - 02/13/2006 Social History Tobacco Use Smoking status: Some Days Types: Cigars Passive exposure: Yes Smokeless tobacco: Never Tobacco comments: occasionally smoke a ci (more content not included)...[facility] 11-19-2024 History of Present illness Narrative* Dixon Rosen APRN.SEFERINO - 11/19/2024 8:02 AM EDT SUBJECTIVE Debo Hlul is a 79 year old male here today for a check up on his medical problems. Chief Complaint Patient presents with: Medication Follow-up HPI Manav Hull is an 79-year-old male, with a history of cancer, DM, and hypothyroidism, presenting for evaluation of adverse effects from sertraline, including constipation and significant sexual dysfunction. Manav reports experiencing adverse effects from sertraline, including constipation and significant sexual dysfunction. He describes a marked decrease in libido, difficulty maintaining erections, and an absence of orgasms, which he finds devastating. These issues persist despite the use of Viagra. He has been taking sertraline for an extended period and, after researching its side effects, believes it is the cause of his sexual dysfunction. He expresses a desire to discontinue sertraline but isconcerned about potential withdrawal symptoms. His , an RN, advised him to consult with his healthcare provider before making any changes. Mood-thompson, Manav reports feeling pretty good and describes his grumpiness as manageable. He attributes some irritability to the aches and pains of aging and expresses gratitude for his long life. He acknowledges occasional irritability towards his , who has been supportive throughout his cancer treatments, and expresses regret for these moments. Manav has completed his cancer treatments and is currently undergoing monitoring with CT scans every6 months. He mentions a recent cardiac episode in the fall, which resulted in a brief hospitalization at [facility]. The attending physician attributed the episode to dehydration and confirmed that nocardiac damage occurred. He denies experiencing any chest pain or tightness since then. Manav also manages DM, with his last HbA1c recorded at 7.4% in June. He monitors his blood glucose levels every other day and reports stable readings. He is also on medication for hypothyroidism, which he states is well-controlled. He reports no issues with his neuropathy with today's visit. His medications were reviewed today and his list is now up to date. Medications Current Outpatient Medications Medication Sig levothyroxine (SYNTHROID) 112 mcg tablet Take 1 tablet by mouth once daily. atorvastatin (LIPITOR) 40 mg tablet Take 1 tablet by mouth once daily. buPROPion XL (WELLBUTRIN XL) 150 mg 24 hr tablet Take 1 tablet by mouth once daily. albuterol HFA (VENTOLIN HFA) 90 mcg/actuation inhaler Inhale 2 Puffs as instructed every 4 hours asneeded for wheezing/shortness of breath. Patient requests Relion brand 60 puffs for $9 sildenafil (VIAGRA) 100 mg tablet Take half to whole pill as directed prior to intercourse. blood sugar diagnostic (TRUE METRIX GLUCOSE TEST STRIP) test strip 1 Strip once daily. Use as instructed Lancets (AlumniFunderTOUCH ULTRASOFT LANCETS) Test blood sugar(s) twice daily and as needed. Dx: Uncontrolled type 2 diabetes without complication E11.65. Insulin: no glipiZIDE (GLUCOTROL) 5 mg tablet Take 1 tablet by mouth twice daily before meals. As directed (Patient taking differently: Take 5 mg by mouth two times a day before meals. Taking as needed.) No current facility-administered medications for this visit. 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 Thrombocytopenia (Hcc) - 10/24/2020 Mixed Hyperlipidemia - 10/24/2020 Overweight (Bmi 25.0-29.9) - 09/16/2019 Bph Loc W/O Ur Obs/Luts - 05/22/2016 Diabetes Mellitus Type 2, Controlled, Without Complications ([facility]) - 02/04/2016 Acquired Hypothyroidism - 06/17/2015 Elevated Ck - 01/10/2015 History of Urinary Retention - 05/21/2014 Cough Variant Asthma - 12/10/2013 Ed (Erectile Dysfunction) - 02/10/2013 Multinodular Goiter - 05/21/2012 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) - 04/16/2012 Nontoxic Uninodular Goiter - 04/10/2012 Depression - 03/27/2012 Atypical Nevus of Abdominal Wall - 02/18/2012 Melanocytic Nevi of Trunk - 02/18/2012 Seborrheic Keratoses - 02/18/2012 Solar Lentigines - 02/18/2012 Actinic Skin Damage - 02/18/2012 Braun Angioma - 02/18/2012 Cutaneous Skin Tags - 02/18/2012 Surgical Scars - 02/18/2012 Benign Prostatic Hyperplasia Without Lower Urinary Tract Symptoms - 07/05/2011 Pure Hypercholesterolemia - 02/13/2006 Social History Tobacco Use Smoking status: Some Days Types: Cigars Passive exposure: Yes Smokeless tobacco: Never Tobacco comments: occasionally smoke a cigar Substance Use Topics Alcohol use: Yes Comment: 2 x weekly Drug use: No Review of Systems Constitutional: Negative. Respiratory: Negative. Cardiovascular: Negative. OBJECTIVE BP 105/66 Pulse 70 Wt 205 lb 7.5 oz (93.2kg) SpO2 98% Physical Exam Vitals and nursing note reviewed. Constitutional: General: He is awake. He is not in acute distress. Appearance: Normal appearance. He is well-developed and well-groomed. He is not ill-appearing, toxic-appearing or diaphoretic. HENT: Head: Normocephalic. Right Ear: External ear normal. Left Ear: External ear normal. Nose: Nose normal. Eyes: General: Vision grossly intact. Conjunctiva/sclera: Conjunctivae normal. Pupils: Pupils are equal, round, and reactive to light. Neck: Vascular: No JVD. Trachea: Trachea normal. Cardiovascular: Rate and Rhythm: Normal rate and regular rhythm. Pulses: Normal pulses. Heart sounds: Normal heart sounds. No murmur heard. Pulmonary: Effort: Pulmonary effort is normal. No accessory muscle usage, prolonged expiration or respiratory distress. Breath sounds: Normal breath sounds. Musculoskeletal: Cervical back: Neck supple. Skin: General: Skin is warm and dry. Capillary Refill: Capillary refill takes less than 2 seconds. Neurological: General: No focal deficit present. Mental Status: He is alert and oriented to person, place, and time. Mental status is at baseline. Psychiatric: Attention and Perception: Attention and perception normal. Mood and Affect: Mood and affect normal. Speech: Speech normal. Behavior: Behavior normal. Behavior is cooperative. Thought Content: Thought content normal. Cognition and Memory: Cognition and memory normal. Judgment: Judgment normal. ASSESSMENT/PLAN: 1. Erectile dysfunction, unspecified erectile dysfunction type - ICD9: 607.84, ICD10: N52.9 (primary diagnosis) Refill on sildenafil, with stopping the sertraline this may be able to be decreased or discontinued. - SILDENAFIL 100 MG TABLET 2. Controlled type 2 diabetes mellitus with diabetic polyneuropathy, without long-term current use of insulin (HCC) - ICD9: 250.60, 357.2, ICD10: E11.42 - Controlled - Counseled on healthy diet and regular exercise - Discussed need for and benefit of weight loss. BMI 30.78 kg/(m^2) - No issues with neuropathy reported. 3. Essential (primary) hypertension - ICD9: 401.9, ICD10: I10 - Controlled - Continue current medications - Recommend home blood pressure monitoring, to bring results to next visit - Encouraged sodium restriction, DASH or Mediterranean diet - Recommend regular aerobic exercise 4. Mixed hyperlipidemia - ICD9: 272.2, ICD10: E78.2 - Control undetermined, due for labs - Counseled on healthy diet and regular exercise 5. Acquired hypothyroidism - ICD9: 244.9, ICD10: E03.9 - Instructed patient on importance of taking on an empty stomach either first thing in the morning or at bedtime. Stable, prior labs reviewed. 6. 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 7. Malignant neoplasm of urinary bladder, unspecified site (HCC) - ICD9: 188.9, ICD10: C67.9 See above. 8. Major depressive disorder with single episode, in partial remission (HCC) - ICD9: 296.25, ICD10:F32.4 Stable, we will have him decrease the sertraline to a half tablet for 1 week and then okay to stop,we discussed if issues with mood changes then we may need to consider an alternative. The patient consented to the use of ambient AI software for draft documentation of the visit consistent with [facility] s Notice of Privacy Practices. Portions of this note have been entered by ancillary staff. I have reviewed and when necessary edited, so that they are an adequate record of my encounter with this patient Please note that parts of this document were created using voice recognition software and therefore may contain grammatical errors. Patient verbalizes understanding of instructions from today's visit and in agreement with treatmentplan. Questions answered. Agrees to call the office if questions, concerns of issues with acute symptoms not improving or if they worsen. See diagnoses and orders for additional plan(s). Allergies and medications were reviewed, list was updated, and refills given if needed. Past medical, surgical, social, and family history reviewed and updated as appropriate. Encouraged proper diet & exercise as well as compliance with taking medications. Age- appropriate health preventative measures were discussed. Return if symptoms worsen or fail to improve, for Keep next scheduled appointment.. Dixon Rosen APRN-SEFERINO documented in this encounterOhio[facility]12-02-[facility]24 Instructions* Patient Instructions* Matteo Rebollar MD - 08/11/2024 9:06 AM EST - Continue taking Lipitor 40 mg daily as prescribed. - Continue taking Glipizide as needed. - Maintain hydration by drinking water and consuming foods with high water content like soup, applesauce, yogurt, fruits, and vegetables. - Wear shoes that provide good support and balance to prevent falls. - Use night lights to ensure visibility and prevent falls at night. - Continue using Vicks VapoRub for foot fungus as it appears to be effective. - Next appointment with your oncologist, Dr. Bill, in 1-2 weeks. - Next appointment with Dixon in February. - Schedule your next Medicare Wellness visit with labs prior to the appointment. Screening schedule The following prevention plan is recommended: RSV Vaccine(1 - 1-dose 75+ series) Never done Diabetic Foot Exam due on 06/15/2023 Urine Albumin:Creatinine Ratio due on 01/26/2024 Dilated Retinal Exam due on 06/24/2024 WHAT YOU CAN DO TO PREVENT FALLS Many falls can be prevented. By making some changes, you can lower your chances of falling. Four things YOU can do to prevent falls for you* and your caregiver 1. Begin a regular exercise program Exercise is one of the most important ways to lower your chances of falling. It makes you stronger and helps you feel better. Exercises that improve balance and coordination (like Victorino Chi) are the most helpful. Lack of exercise leads to weakness and increases your chances of falling. Ask your doctor or health care provider about the best type of exercise program for you. 2. Have your health care provider review your medicines Have your doctor or pharmacist review all the medicines you take, even [id number] medicines. As you get older, the way medicines work in your body can change. Some medicines, or combinations of medicines, can make you sleepy or dizzy andcan cause you to fall. 3. Have your vision checked Have your eyes checked by an eye doctor at least once a year. You may be wearing the wrong glasses or have a condition like glaucoma or cataracts that limits your vision. Poor vision can increase your chances of falling. 4. Make your home safer About half of all falls happen at home. To make your home safer: Remove things you can trip over (like papers, books, clothes, and shoes) from stairs and places where you walk. Remove small throw rugs or use double-sided tape to keep the rugs from slipping. Keep items you use often in cabinets you can reach easily without using a step stool. Have grab bars put in next to your toilet and in the tub or shower. Use non-slip mats in the bathtub and on shower floors. Improve the lighting in your home. As you get older, you need brighter lights to see well. Hang light-weight curtains or shades to reduce glare. Have handrails and lights put in on all staircases. Wear shoes both inside and outside the house. Avoid going barefoot or wearing slippers. For more information, contact: Centers for Disease Control and Prevention www.cdc.gov/injury * This information may not apply if you have certain medical conditions. documented in this encounterOhiohealth Mansfield Hospital12-02-2024 NoteHNO ID: [id number] Author: MATTEO REBOLLAR MD Service: ? Author Type: Physician Type: Progress Notes Filed: 08/11/2024 09:51 Note Text: This note was created using Aeryon Labsriter. Subjective Debo Hull is a 79 year old male. HISTORY Debo Hull is a 79 year old gentleman here for yearly exam and follow up appointment. Debo Hull is an 79-year-old male with a history of diabetes mellitus, hypercholesterolemia, and cancer, presenting for a Medicare Annual Wellness Visit. Debo reports feeling well overall but notes occasional balance issues and neuropathy in his feet, which he attributes to his diabetes. He experiences numbness in his toes and has difficulty feeling the ground, leading to concerns about falling and tripping easily. He also mentions a recent dental procedure where a tooth was extracted and a bridge was removed, with plans for reconstruction. Debo is currently undergoing treatment for cancer and has a CT scan scheduled for , followed by a consultation with his oncologist, Dr. Benitez, who is with [facility]. He has completed two chemotherapy sessions and radiation therapy and reports feeling fine. He is also under the care of Dr. Erickson at [facility] for cardiology and Dr. Goel for ophthalmology, with a recent eye exam conducted in June. Debo is taking multiple medications, including Lipitor 40 mg daily, which was last filled in June. He inquires about the necessity of continuing this dosage. He also takes glipizide twice daily before meals as needed but has not used it in months. Other medications include levothyroxine, sertraline, and sildenafil, with the latter recently filled in August. He uses Vicks VapoRub for a fungal infection on his feet and reports improvement in the thickness of his toenails. Debo denies any changes in family history but notes that his brother, a [place] , is in the final stages of Parkinson's disease due to Agent [place] exposure. He also has a sister residing in [place]. He denies any thoughts of self-harm but expresses stress related to his brother's condition and his own cancer treatment. He mentions a desire to avoid prolonged suffering if his cancer were to metastasize to multiple sites. He has great-granddaughters whom he wishes to continue seeing. PAST MEDICAL HISTORY Diagnosis Date Actinic skin damage 02/18/2012 BPH w urinary obs/LUTS 07/05/2011 Cough variant asthma 12/10/2013 Depression Diverticulosis of colon (without mention of hemorrhage) Family history of malignant neoplasm of gastrointestinal tract family history of colon cancer; due for colonoscopy 2016 (last done 2011 and 2005) Frozen shoulder Dr. Slaughter managing; started around Jun 2013 Hypothyroidism Internal hemorrhoids without mention of complication Multinodular goiter 05/21/2012 PURE HYPERCHOLESTEROLEM 02/13/2006 Shingles ~2002 Current Outpatient Medications Medication Sig Lancets (ONETOUCH ULTRASOFT LANCETS) Test blood sugar(s) twice daily and as needed. Dx: Uncontrolled type 2 diabetes without complication E11.65. Insulin: no levothyroxine (SYNTHROID) 112 mcg tablet Take 1 tablet by mouth once daily. atorvastatin (LIPITOR) 40 mg tablet Take 1 tablet by mouth once daily. blood sugar diagnostic (TRUE METRIX GLUCOSE TEST STRIP) test strip 1 Strip once daily. Use as instructed buPROPion XL (WELLBUTRIN XL) 150 mg 24 hr tablet Take 1 tablet by mouth once daily. sertraline (ZOLOFT) 50 mg tablet Take 1 tablet by mouth once daily. albuterol HFA (VENTOLIN HFA) 90 mcg/actuation inhaler Inhale 2 Puffs as instructed every 4 hours as needed for wheezing/shortness of breath. Patient requests Jump[employer]eller 60 puffs for $9 sildenafil (VIAGRA) 100 mg tablet Take half to whole pill as directed prior to intercourse. glipiZIDE (GLUCOTROL) 5 mg tablet Take 1 tablet by mouth twice daily before meals. As directed (Patient taking differently: Take 5 mg by mouth two times a day before meals. Taking as needed.) No current facility-administered medications for this visit. ALLERGIES Allergen Reactions Metformin Diarrhea, GI Upset Tried 2 doses and had adverse effects each time Ipratropium Other: See Comments In albuterol inhaler Breathing difficulty Seasonal Allergies Cough hayfever FAMILY HISTORY Problem Relation Age of Onset Colon Cancer Mother mid seventies Parkinson?s Disease Brother Colon Cancer Maternal Grandmother 65yo Social History Tobacco Use Smoking status: Some Days Types: Cigars Passive exposure: Yes Smokeless tobacco: Never Tobacco comments: occasionally smoke a cigar Substance Use Topics Alcohol use: Yes Comment: 2 x weekly Drug use: No Review of Systems Objective BP 106/62 Pulse 64 Temp (!) 35.8 ?C (96.5 ?F) Resp 16 Ht 174 cm (5' 8.5) Wt 93.6 kg (206 lb 5.6 oz) SpO2 98% BMI 30.92 kg/m? Physical Exam Vitals (more content not included)...[facility]12-[facility] History of Present illness Narrative* Matteo Rebollar MD - 08/11/2024 9:00 AM EST Images from the original note were not included. This note was created using [employer]. Subjective Debo Hull is a 79 year old male. HISTORY Debo Hull is a 79 year old gentleman here for yearly exam and follow up appointment. Debo Hull is an 79-year-old male with a history of diabetes mellitus, hypercholesterolemia, and cancer, presenting for a Medicare Annual Wellness Visit. Debo reports feeling well overall but notes occasional balance issues and neuropathy in his feet, which he attributes to his diabetes. He experiences numbness in his toes and has difficulty feeling the ground, leading to concerns about falling and tripping easily. He also mentions a recent dental procedure where a tooth was extracted and a bridge was removed, with plans for reconstruction. Debo is currently undergoing treatment for cancer and has a CT scan scheduled for , followed by a consultation with his oncologist, Dr. Benitez, who is with [facility]. He has completed two chemotherapy sessions and radiation therapy and reports feeling fine. He is also underthe care of Dr. Erickson at [facility] for cardiology and Dr. Goel for ophthalmology, with a recent eye exam conducted in June. Debo is taking multiple medications, including Lipitor 40 mg daily, which was last filled in June. He inquires about the necessity of continuing this dosage. He also takes glipizide twice dailybefore meals as needed but has not used it in months. Other medications include levothyroxine, sertraline, and sildenafil, with the latter recently filled in August. He uses Vicks VapoRub for a fungal infection on his feet and reports improvement in the thickness of his toenails. Debo denies any changes in family history but notes that his brother, a [place] , is in the final stages of Parkinson's disease due to Agent [place] exposure. He also has a sister residing in [place]. He denies any thoughts of self-harm but expresses stress related to his brother's condition and his own cancer treatment. He mentions a desire to avoid prolonged suffering if his cancer were to metastasize to multiple sites. He has great-granddaughters whom he wishes to continue seeing. PAST MEDICAL HISTORY Diagnosis Date Actinic skin damage 02/18/2012 BPH w urinary obs/LUTS 07/05/2011 Cough variant asthma 12/10/2013 Depression Diverticulosis of colon (without mention of hemorrhage) Family history of malignant neoplasm of gastrointestinal tract family history of colon cancer; due for colonoscopy 2016 (last done 2011 and 2005) Frozen shoulder Dr. Slaughter managing; started around Jun 2013 Hypothyroidism Internal hemorrhoids without mention of complication Multinodular goiter 05/21/2012 PURE HYPERCHOLESTEROLEM 02/13/2006 Shingles ~2002 Current Outpatient Medications Medication Sig Lancets (ONETOUCH ULTRASOFT LANCETS) Test blood sugar(s) twice daily and as needed. Dx: Uncontrolled type 2 diabetes without complication E11.65. Insulin: no levothyroxine (SYNTHROID) 112 mcg tablet Take 1 tablet by mouth once daily. atorvastatin (LIPITOR) 40 mg tablet Take 1 tablet by mouth once daily. blood sugar diagnostic (TRUE METRIX GLUCOSE TEST STRIP) test strip 1 Strip once daily. Use as instructed buPROPion XL (WELLBUTRIN XL) 150 mg 24 hr tablet Take 1 tablet by mouth once daily. sertraline (ZOLOFT) 50 mg tablet Take 1 tablet by mouth once daily. albuterol HFA (VENTOLIN HFA) 90 mcg/actuation inhaler Inhale 2 Puffs as instructed every 4 hours asneeded for wheezing/shortness of breath. Patient requests Relion brand 60 puffs for $9 sildenafil (VIAGRA) 100 mg tablet Take half to whole pill as directed prior to intercourse. glipiZIDE (GLUCOTROL) 5 mg tablet Take 1 tablet by mouth twice daily before meals. As directed (Patient taking differently: Take 5 mg by mouth two times a day before meals. Taking as needed.) No current facility-administered medications for this visit. ALLERGIES Allergen Reactions Metformin Diarrhea, GI Upset Tried 2 doses and had adverse effects each time Ipratropium Other: See Comments In albuterol inhaler Breathing difficulty Seasonal Allergies Cough hayfever FAMILY HISTORY Problem Relation Age of Onset Colon Cancer Mother mid seventies Parkinson s Disease Brother Colon Cancer Maternal Grandmother 65yo Social History Tobacco Use Smoking status: Some Days Types: Cigars Passive exposure: Yes Smokeless tobacco: Never Tobacco comments: occasionally smoke a cigar Substance Use Topics Alcohol use: Yes Comment: 2 x weekly Drug use: No Review of Systems Objective BP 106/62 Pulse 64 Temp (!) 35.8 C (96.5 F) Resp 16 Ht 174 cm (5' 8.5) Wt 93.6 kg (206 lb 5.6 oz) SpO2 98% BMI 30.92 kg/m Physical Exam Vitals reviewed. Constitutional: Appearance: Normal appearance. HENT: Head: Normocephalic. Right Ear: Tympanic membrane, ear canal and external ear normal. Left Ear: Tympanic membrane, ear canal and external ear normal. Mouth/Throat: Mouth: Mucous membranes are moist. Pharynx: Oropharynx is clear. Eyes: Extraocular Movements: Extraocular movements intact. Conjunctiva/sclera: Conjunctivae normal. Cardiovascular: Rate and Rhythm: Normal rate and regular rhythm. Pulses: Normal pulses. Dorsalis pedis pulses are 2+ on the right side and 2+ on the left side. Posterior tibial pulses are 2+ on the right side and 2+ on the left side. Heart sounds: Normal heart sounds. Pulmonary: Effort: Pulmonary effort is normal. Breath sounds: Normal breath sounds. Abdominal: General: Abdomen is flat. There is no distension. Palpations: Abdomen is soft. There is no mass. Musculoskeletal: Cervical back: Normal range of motion. Feet: Right foot: Protective Sensation: 10 sites tested. 10 sites sensed. Skin integrity: Skin integrity normal. Left foot: Protective Sensation: 10 sites tested. 10 sites sensed. Skin integrity: Skin integrity normal. Comments: Appears to have resolving onychomycosis Skin: General: Skin is warm and dry. Neurological: General: No focal deficit present. Mental Status: He is alert and oriented to person, place, and time. Psychiatric: Attention and Perception: Attention normal. Mood and Affect: Mood normal. Speech: Speech normal. Behavior: Behavior normal. Thought Content: Thought content normal. Cognition and Memory: Cognition normal. Judgment: Judgment normal. Latest Ref Rn 07/23/2023 09/17/2023 10/09/2023 01/09/2024 06/26/2024 Protein, Total 6.3 - 8.0 g/dL 6.4 7.0 Albumin 3.9 - 4.9 g/dL 4.5 4.4 Calcium 8.5 - 10.2 mg/dL 9.8 9.8 Bilirubin, Total 0.2 - 1.3 mg/dL 0.3 0.5 Alkaline Phosphatase 38 - 113 U/L 75 98 AST 14 - 40 U/L 20 24 ALT 10 - 54 U/L 18 28 Glucose 74 - 99 mg/dL 123 (H) 146 (H) BUN 9 - 24 mg/dL 19 23 Creatinine 0.73 - 1.22 mg/dL 1.04 1.23 (H) Sodium 136 - 144 mmol/L 139 135 (L) Potassium 3.7 - 5.1 mmol/L 4.8 5.0 Chloride 98 - 107 mmol/L 104 101 CO2 22 - 30 mmol/L 23 25 Anion Gap 8 - 15 mmol/L 12 9 eGFR >=60 mL/min/1.73m 73 59 (L) WBC 3.70 - 11.00 k/uL 5.20 4.31 5.38 RBC 4.20 - 6.00 m/uL 3.54 (L) 3.69 (L) 4.08 (L) Hemoglobin 13.0 - 17.0 g/dL 11.6 (L) 12.1 (L) 13.2 Hematocrit 39.0 - 51.0 % 37.1 (L) 36.2 (L) 40.8 MCV 80.0 - 100.0 fL 104.8 (H) 98.1 100.0 MCH 26.0 - 34.0 pg 32.8 32.8 32.4 MCHC 30.5 - 36.0 g/dL 31.3 33.4 32.4 RDW-CV 11.5 - 15.0 % 14.0 12.5 13.6 Platelet Count 150 - 400 k/uL 99 (L) 132 (L) 127 (L) MPV 9.0 - 12.7 fL 12.0 10.7 11.0 Absolute nRBC <0.01 k/uL <0.01 <0.01 <0.01 Cholesterol, Total <200 mg/dL 133 143 Triglyceride <150 mg/dL 107 142 HDL Cholesterol >39 mg/dL 41 40 Non HDL Cholesterol <130 mg/dL 92 103 Fasting Time hrs 12 12 VLDL Cholesterol <30 mg/dL 21 28 TC:HDL Ratio <5.10 3.24 3.58 LDL Cholesterol <100 mg/dL 71 75 LDL:HDL Ratio <2.54 1.73 1.88 Hemoglobin A1C 4.3 - 5.6 % 5.8 (H) 7.4 (H) Estimated Average Glucose mg/dL 120 166 TSH 0.270 - 4.200 mIU/L 0.068 (L) 0.265 (L) 0.497 0.656 2.820 Free T4 0.9 - 1.7 ng/dL 1.9 (H) 1.3 1.3 1.3 1.2 Free T3 2.3 - 4.1 pg/mL 3.1 2.7 2.5 2.5 2.7 Vitamin B12 232 - 1,245 pg/mL 910 Folate >4.7 ng/mL >20.0 Magnesium 1.7 - 2.3 mg/dL 2.1 Legend: (H) High (L) Low Hemoglobin A1C (%) Date Value 06/26/2024 7.4 07/23/2023 5.8 01/25/2023 7.3 05/24/2022 7.8 12/07/2021 8.4 06/01/2021 7.5 09/27/2020 7.1 03/10/2020 6.6 05/03/2019 6.3 02/07/2019 8.5 Hemoglobin A1C (POCT) (%) Date Value 09/16/2019 6.0 Assessment and Plan--see below Debo Hull is a 79 year old male here for a Medicare wellness visit. Medicare Health Risk Assessment General Health Fair Exercise: Minutes/Day 40 min Exercise: Days/Week 5 days Alcohol: Daily Use Monthly or less Alcohol: Drinks/Day 1 or 2 Alcohol: 6 or more drinks Never Feel off balance Yes Concerns: Teeth/Dentures Yes--getting dental work done;needs new bridge made Concerns: Sexual function Yes--gets sildenafil Troubled by feelings Stressed Frequency: Eating healthy diet Nearly every day ADLs requiring help None of the above Safety precautions in home/vehicle Yes Smoke, vape, chews tobacco No Difficulty hearing Yes Difficulty seeing No Current Providers Specialists: I have reviewed specialist-related care of the patient in the medical record. Outside specialists seen: Dr. Goel ([facility]) , Dr. Benitez (Oncology at [facility] Dr. Erickson ([facility]) Medical/Family history review Reviewed and updated problem list, medical/surgical/family/social history, medications, and allergies. Opioid use review Opioid Medications (last 90 days) No data to display Depression Screening PHQ-2 Score: 1 Cognitive screening Mini Cog Score: 4 Cognitive screening reviewed and No further action needed (score 3-5). Functional Observation Was the patient's Timed Up & Go test unsteady or >= 12 seconds? No Advance Care Planning Surrogate decision maker and/or advance care plan documented Measurements BP 106/62 Pulse 64 Temp (!) 35.8 C (96.5 F) Resp 16 Ht 174 cm (5' 8.5) Wt 93.6 kg (206 lb 5.6 oz) SpO2 98% BMI 30.92 kg/m Vision Screening: Follows with optometry/ophthalmology Assessment/Plan Medicare annual wellness visit, subsequent (Z) - Counseled on healthy diet and regular exercise - Fall avoidance information provided - Personalized prevention plan provided # Medicare annual wellness visit, subsequent () - Completed comprehensive physical examination. - Reviewed and updated advanced directives; no changes reported. - Discussed family history; no changes except for brother with terminal Parkinson's disease. - Reviewed current medications: Lipitor 40 mg daily, Trumetrix test strips, Wellbutrin, glipizide, levothyroxine, sertraline, sildenafil. - Ordered standing lab orders for metabolic panel, cholesterol, A1c, and CBC every 6 months. - Scheduled next Medicare Wellness visit with [facility] in February. # Controlled type 2 diabetes mellitus with diabetic polyneuropathy, without long-term current use of insulin (HCC) (E11.42) - Neuropathy in feet affecting balance; advised on wearing appropriate footwear and using night lights to prevent falls. - Completed diabetic foot exam; normal sensation with monofilament testing, no significant callusesor thickened toenails. - Ordered urine [id number] ratio (UACR) to monitor for proteinuria. - Encouraged maintaining hydration and monitoring blood glucose levels. # Essential (primary) hypertension (I10) - Blood pressure well-controlled on current medication regimen. - Advised continuation of current antihypertensive therapy. # Mixed hyperlipidemia (E78.2) - LDL cholesterol levels close to target; discussed the importance of maintaining Lipitor 40 mg daily. - Patient understands and agrees to continue current dosage. - Will coordinate with Dr. Erickson, [facility], for further management if needed. # Cataract of both eyes, unspecified cataract type (H26.9) - Cataracts stable; patient reports no significant visual impairment. - Recent eye exam performed by Dr. Goel in June; awaiting documentation. - Advised regular follow-up with ophthalmology. Matteo Rebollar MD documented in this encounter[facility] Telephone encounter Note * Telephone Encounter - Amina Neumann LPN - 07/07/2024 1:21 PM EDT Prescription Refill Information See patient comment on atorvastatin: Patient Comment: My [facility] started me on 40 mg tablets, if Dr. Rebollar approves, please send [facility] rx [facility]. Thank You . Prescription pending ifappropriate The patient has been identified by name and date of : Yes Caregiver verified no other encounters exist for this prescription request: Yes Caregiver confirmed with patient/requestor that no other refills are due, in the near future, with this provider at this time: Yes The last office visit in the department: 06/10/24 Does the patient have a future office visit with this provider/department: Yes Requested Prescriptions Pending Prescriptions Disp Refills Lancets (ONETOUCH ULTRASOFT LANCETS) 200 Each 3 Sig: Test blood sugar(s) twice daily and as needed. Dx: Uncontrolled type 2 diabetes without complication E11.65. Insulin: no blood sugar diagnostic (ONETOUCH ULTRA TEST) test strip 200 Strip 3 Sig: Test blood sugar(s) twice daily and as needed. Dx: Uncontrolled type 2 diabetes without complication E11.65. Insulin: no levothyroxine (SYNTHROID) 112 mcg tablet 90 tablet 3 Sig: Take 1 tablet by mouth once daily. atorvastatin (LIPITOR) 40 mg tablet 90 tablet 3 Sig: Take 1 tablet by mouth once daily. Amina Neumann LPN July 07, 2024 1:22 PM [facility] Miscellaneous Notes* Telephone Encounter - Amina Neumann LPN - 07/07/2024 1:21 PM EDT Prescription Refill Information See patient comment on atorvastatin: Patient Comment: My [facility] started me on 40 mg tablets, if Dr. Rebollar approves, please send new rx [facility]. Thank You . Prescription pending ifappropriate The patient has been identified by name and date of : Yes Caregiver verified no other encounters exist for this prescription request: Yes Caregiver confirmed with patient/requestor that no other refills are due, in the near future, with this provider at this time: Yes The last office visit in the department: 06/10/24 Does the patient have a future office visit with this provider/department: Yes Requested Prescriptions Pending Prescriptions Disp Refills Lancets (ONETOUCH ULTRASOFT LANCETS) 200 Each 3 Sig: Test blood sugar(s) twice daily and as needed. Dx: Uncontrolled type 2 diabetes without complication E11.65. Insulin: no blood sugar diagnostic (ONETOUCH ULTRA TEST) test strip 200 Strip 3 Sig: Test blood sugar(s) twice daily and as needed. Dx: Uncontrolled type 2 diabetes without complication E11.65. Insulin: no levothyroxine (SYNTHROID) 112 mcg tablet 90 tablet 3 Sig: Take 1 tablet by mouth once daily. atorvastatin (LIPITOR) 40 mg tablet 90 tablet 3 Sig: Take 1 tablet by mouth once daily. Amina Neumann LPN July 07, 2024 1:22 PM documented in this encounterOhiohealth [facility]10-28-2024 Telephone encounter Note * Telephone Encounter - Adele Cao MA - 07/07/2024 12:26 PM EDT Prescription Refill Information The patient has been identified by name and date of : Yes Caregiver verified no other encounters exist for this prescription request: Yes Caregiver confirmed with patient/requestor that no other refills are due, in the near future, with this provider at this time: Yes The last office visit in the department: 06/10/24 Does the patient have a future office visit with this provider/department: Yes Requested Prescriptions Pending Prescriptions Disp Refills blood sugar diagnostic (TRUE METRIX GLUCOSE TEST STRIP) test strip 1 Each 5 Si Strip once daily. Use as instructed Adele Cao MA July 07, 2024 12:28 PM [facility] Miscellaneous Notes* Telephone Encounter - Adele Cao MA - 07/07/2024 12:26 PM EDT Prescription Refill Information The patient has been identified by name and date of : Yes Caregiver verified no other encounters exist for this prescription request: Yes Caregiver confirmed with patient/requestor that no other refills are due, in the near future, with this provider at this time: Yes The last office visit in the department: 06/10/24 Does the patient have a future office visit with this provider/department: Yes Requested Prescriptions Pending Prescriptions Disp Refills blood sugar diagnostic (TRUE METRIX GLUCOSE TEST STRIP) test strip 1 Each 5 Si Strip once daily. Use as instructed Adele Cao MA July 07, 2024 12:28 PM documented in this encounterOhiohealth [facility]10-01-2024 Instructions* Patient Instructions* Matteo Rebollar MD - 06/10/2024 12:12 PM EDT -Continue taking your current medications as prescribed, including atorvastatin, clopidogrel, sertraline, bupropion, levothyroxine, and albuterol. - Use albuterol in the morning and evening to help control coughing and wheezing. - Stay hydrated, especially when engaging in activities like golfing. - Do not drive if you experience chest pain or other symptoms of a heart attack in the future. - You have a follow-up appointment with the heart group on the . - You will receive a flu shot today. - Discuss your eligibility for the RSV vaccine with your pharmacist. - Your next appointment is scheduled for August. documented in this encounterOhiohealth [facility]10-01-2024 History of Present illness Narrative* Matteo Rebollar MD - 06/10/2024 11:43 AM EDT This note was created using NoteWriter. Subjective Debo Hull is a 79 year old male. Patient presents with: Hospital F/U: [facility] 06/04 - 06/06 SUBJECTIVE: Debo Hull is a 79 year old year old gentleman here today for hospital follow up appointment for review of medical conditions. The patient is a 79-year-old male, with a history of NSTEMI, presenting for a hospital follow-up. The patient was recently hospitalized at [facility] for chest pain and was diagnosed with a non-ST elevated GA. He reports that the GA occurred while he was golfing. During the episode,he experienced chest pain on both the left and right sides of his chest, diaphoresis, mild dyspnea,nausea, and blurred vision. He also felt like he was going to pass out. Believing his symptoms might be due to hypoglycemia, he ate something and drank a Coke. He then drove 30 miles home while experiencing chest pain. He was later admitted to the hospital, where his troponin I levels were initially 28 and increased to 667. He was diagnosed with a non-ST elevated GA and was found to have mild anemia with a hemoglobin level of 12.3 and a low magnesium level of 1.3, for which he received IV magnesium. His ejection fraction was 60%, and no diastolic dysfunction was noted. A heart catheterizationrevealed mild disease in the first diagonal bridge of the LAD with a 50% osteo lesion and no high-grade lesions. The right coronary artery showed mild segmental 50% smooth stenosis and mild distal disease. No stenting was performed. He was discharged on atorvastatin 40 mg, clopidogrel 75 mg for 6 weeks, and a baby aspirin. He was advised to stay on his current medications, including sertraline, bupropion, levothyroxine, and albuterol as needed. He denies any chest pain or dyspnea since his discharge but reports feeling fatigued. He is scheduled to see a vp marketing services and skin on the . He also reports a recent episode of COVID-19 in May, which he has recovered from. He denies any issues with anxiety or excessive worrying. PAST MEDICAL HISTORY Diagnosis Date Actinic skin damage 02/18/2012 BPH w urinary obs/LUTS 07/05/2011 Cough variant asthma 12/10/2013 Depression Diverticulosis of colon (without mention of hemorrhage) Family history of malignant neoplasm of gastrointestinal tract family history of colon cancer; due for colonoscopy 2016 (last done 2011 and 2005) Frozen shoulder Dr. Slaughter managing; started around Jun 2013 Hypothyroidism Internal hemorrhoids without mention of complication Multinodular goiter 05/21/2012 PURE HYPERCHOLESTEROLEM 02/13/2006 Shingles ~2001 Current Outpatient Medications Medication Sig buPROPion XL (WELLBUTRIN XL) 150 mg 24 hr tablet Take 1 tablet by mouth once daily. atorvastatin (LIPITOR) 20 mg tablet Take 1 tablet by mouth once daily. Please note dose change. Do not cut tablet in half. (Patient taking differently: Take 40 mg by mouth once daily. Please note dose change. Do not cut tablet in half.) sertraline (ZOLOFT) 50 mg tablet Take 1 tablet by mouth once daily. albuterol HFA (VENTOLIN HFA) 90 mcg/actuation inhaler Inhale 2 Puffs as instructed every 4 hours asneeded for wheezing/shortness of breath. Patient requests Relion brand 60 puffs for $9 sildenafil (VIAGRA) 100 mg tablet Take half to whole pill as directed prior to intercourse. levothyroxine (SYNTHROID) 112 mcg tablet Take 1 tablet by mouth once daily. Lancets (ONETOUCH ULTRASOFT LANCETS) lancets Test blood sugar(s) twice daily and as needed. Dx: Uncontrolled type 2 diabetes without complication E11.65. Insulin: no blood sugar diagnostic (ONETOUCH ULTRA TEST) test strip Test blood sugar(s) twice daily and as needed. Dx: Uncontrolled type 2 diabetes without complication E11.65. Insulin: no glipiZIDE (GLUCOTROL) 5 mg tablet Take 1 tablet by mouth twice daily before meals. As directed (Patient taking differently: Take 5 mg by mouth two times a day before meals. Taking as needed.) blood sugar diagnostic (TRUE METRIX GLUCOSE TEST STRIP) test strip 1 Strip once daily. Use as instructed No current facility-administered medications for this visit. Review of Systems Objective BP 106/62 Pulse 64 Temp 36 C (96.8 F) Resp 16 Wt 91.7 kg (202 lb 2.6 oz) SpO2 98% BMI 30.29 kg/m Physical Exam Vitals reviewed. Constitutional: Appearance: Normal appearance. Eyes: Conjunctiva/sclera: Conjunctivae normal. Cardiovascular: Rate and Rhythm: Normal rate and regular rhythm. Heart sounds: Normal heart sounds. Pulmonary: Effort: Pulmonary effort is normal. No respiratory distress. Breath sounds: Wheezing (Bilateral; good air exchange) present. No rhonchi or rales. Musculoskeletal: Right lower leg: No edema. Left lower leg: No edema. Skin: General: Skin is warm and dry. Neurological: General: No focal deficit present. Mental Status: He is alert and oriented to person, place, and time. Psychiatric: Attention and Perception: Attention and perception normal. Mood and Affect: Mood and affect normal. Speech: Speech normal. Behavior: Behavior normal. Thought Content: Thought content normal. Judgment: Judgment normal. Assessment and Plan # NSTEMI (non-ST elevated myocardial infarction) ([facility]) (I21.4) # 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 (I25.10) - Recent NSTEMI with no significant myocardial damage; ejection fraction preserved at 60% with no diastolic dysfunction. - Cardiac catheterization revealed mild disease in the first diagonal bridge of the LAD with a 50% ostial lesion and mild distal disease in the RCA. - Initiated atorvastatin 40 mg daily, clopidogrel 75 mg daily for 6 weeks, and aspirin 81 mg daily. - Follow-up with cardiology scheduled on the . - Ordered CMP, CBC, lipid panel, and magnesium level to be completed before the cardiology appointment. - Advised patient on the importance of hydration to prevent further cardiac events. # Controlled type 2 diabetes mellitus with diabetic polyneuropathy, without long-term current use of insulin ([facility]) (E11.42) - Last HbA1c was 6.9% in February. - Ordered HbA1c to be done with upcoming labs. - Continue current medications: sertraline, bupropion, levothyroxine, and albuterol as needed. # Acute bronchospasm due to viral infection (J98.01) # COVID-19 virus infection (U07.1) - Recent COVID-19 infection with residual bronchospasm. - Advised use of albuterol inhaler: 2 puffs in the morning and 2 puffs in the evening to manage wheezing and cough. - Discussed proper inhaler technique and offered a spacer to improve medication delivery. # Hypomagnesemia (E83.42) - Magnesium level was low at 1.3 mg/dL during hospitalization; received IV magnesium supplementation. - Ordered repeat magnesium level with upcoming labs. # Anemia, unspecified type (D64.9) - Mild anemia noted with hemoglobin at 12.3 g/dL. - Ordered CBC to monitor hemoglobin levels. # Encounter for long-term current use of medication (Z79.899) - Continue current medications: sertraline, bupropion, levothyroxine, and albuterol as needed. # Encounter for immunization (Z23) - Administered influenza vaccine today. - Discussed RSV vaccine availability at pharmacies. - Postponed COVID-19 booster due to recent infection in May. # Encounter for screening examination for other mental health and behavioral disorders (Z13.39) - No current issues with anxiety or excessive worrying. Matteo Rebollar MD documented in this encounterOhiohealth [facility]09-27-2024 [facility] Medical Records Department [address] [place] [address] Discharge Summary 06/06/24921 MR#: [id number] Acct: [id number] Name: DEBO HULL Rep #: [id number] : 1945 79 From: Marino Minaya DO PCP: Dr. Matteo Rebollar MD Status:ADM IN [id number] Prov[facility] Date of Admission: 06/04/24 Primary Care Physician: Dr. Matteo Rebollar MD Consultations 06/04/24 19:52 Consult: Cardiology Routine Consulting Provider: See Erickson Reason for Consult: Chest Pain EMERGENT Consult: No MD Notified: Yes Date Notified: 06/04/24 Time Notified: 18:04 Method of Notification: Verbal Reason For Visit: NSTEMI Diagnosis Discharge Diagnosis (1) NSTEMI (non-ST elevated myocardial infarction): Status: Acute Code(s): I21.4 - Non-ST elevation (NSTEMI) myocardial infarction (2) Thrombocytopenia: Status: Acute Code(s): D69.6 - Thrombocytopenia, unspecified Plan NSTEMI * Cardiac catheterization showed mild disease in the first diagonal branch of the LAD, ostial 50% stenotic lesion. No high-grade lesions noted. Right coronary artery showed dominant large right coronary artery with mild segmental 50% smooth Woelfel stenosis and mild distal disease only. * EF 60%. * On aspirin, atorvastatin. Started on clopidogrel. * Holding off on beta-blockers given bradycardia and ADRIEL inhibitor/angiotensin receptor blockers given low blood pressure. * LHC showed mild distal RCA disease. * Monitor overnight and if stable, discharge 06/06 Chronic conditions * Hypothyroidism-Continue Synthroid-TSH 1.37 * Hx bladder cancer in remission-Continues to follow with hematology and radiation oncology and presently in remission * Hx depression-Continue Wellbutrin and sertraline * Hypomagnesemia/hypokalemia-Replace, recheck in the a.m. Will discharge home. Discussed with the patient's . Medications at Discharge Home Medications sertraline 50 mg tablet 50 mg PO QDAY 09/07/17 bupropion HCl 150 mg 24 hr tablet, extended release (Wellbutrin XL) 150 mg PO QAM 02/27/24 albuterol sulfate 90 mcg/actuation aerosol inhaler 2 puff inhalation Q8H PRN wheezing 06/04/24 levothyroxine 112 mcg tablet 112 mcg PO .qam thyroid 06/04/24 aspirin 81 mg tablet,delayed release 81 mg PO BREAKFAST #0 tabs 06/06/24 atorvastatin 40 mg tablet 40 mg PO QHS #30 tabs 06/06/24 clopidogrel 75 mg tablet 75 mg PO DAILY #42 tabs 06/06/24 Hospital Course Operations None Procedures 2-D Echocardiogram and Cardiac catheterization Summary of Care Provided Minutes Spent on Discharge: 32 Hospital Course: Patient presents with chest pain as well as a non-ST ovation myocardial infarction. Troponins went up to 90-1. Patient had heart heart catheterization that showed distal right coronary artery disease. That was unamenable to PCI. Patient will continue with medical management with aspirin, atorvastatin as well as clopidogrel. Cardiology recommending 6 weeks of aspirin and clopidogrel then aspirin 81 daily thereafter. Patient to follow-up CBC and BMP in about 7 to 10 days when he evaluates at the [facility]. Weight / BMI Weight Weight: 91.4 kg Body Mass Index (BMI) 28.9 ABG / Lab / Microbiology Data 06/05/24 05:15 06/05/24 05:15 Radiography Diagnostic Testing: Radiology Impression Echocardiogram 06/04/24 19:52 Interpretation Summary The estimated ejection fraction is 60 %. No evidence for diastolic dysfunction. Trivial aortic valve insufficiency. Mildly dilated aortic root. Ordering Physician: Kanwal Turner Referring Physician: MATTEO REBOLLAR Performed By: Chela Suarez and Student D/C Instructions Discharge Diet: No restrictions Meaningful Use Info Meaningful Use Meaningful Use Diagnoses (Choose all that apply): AMI AMI/Post PCI/Angioplasty Aspirin given w/in 24hrs of arrival?: Yes ASA at discharge?: Yes Antiplatelet Therapy at Discharge:: Yes Statins at discharge?: Yes Adriel/ARB at discharge?: No Reason Adriel/ARB not ordered:: Worsening renal dysfunctn Beta Shilo at discharge?: No Reason Beta Shilo not ordered:: Hypotension Done w/ Acute GA measure.: Yes Documented LVEF (%): 60 Ischemic Stroke Statin Dosing Therapy Reference: STATIN DOSE THERAPY REFERENCE: * Patients > 75 years receive moderate or high dose statin therapy. * Patients 75 years or YOUNGER should receive HIGH intensity statin dose unless contraindicated. You will be required to document reason for non-treatment if statin daily dose does not meet guidelines. HIGH DOSE STATIN THERAPY DAILY Atorvastatin > than or = to 40 mg Rosuvastatin > than or = to 20 mg A (more content not included)...[facility]08-13-2024 Telephone encounter Note* Telephone Encounter - Meg Zapata LPN - 04/22/2024 10:55 AM EDT Patient has been identified by name and date of : Yes Patient phones for refill(s): Requested Prescriptions Pending Prescriptions Disp Refills buPROPion XL (WELLBUTRIN XL) 150 mg 24 hr tablet 30 tablet 3 Sig: Take 1 tablet by mouth once daily. Date of last office visit in primary care: 02/05/2024 Date of next office visit in primary care: 08/11/2024 Please advise. Thank you. Meg Zaapta LPN. [facility]08-13-2024 Miscellaneous Notes* Telephone Encounter - Meg Zapata LPN - 04/22/2024 10:55 AM EDT Patient has been identified by name and date of : Yes Patient phones for refill(s): Requested Prescriptions Pending Prescriptions Disp Refills buPROPion XL (WELLBUTRIN XL) 150 mg 24 hr tablet 30 tablet 3 Sig: Take 1 tablet by mouth once daily. Date of last office visit in primary care: 02/05/2024 Date of next office visit in primary care: 08/11/2024 Please advise. Thank you. Meg Zapata LPN. documented in [facility] encounter[facility] Telephone encounter Note * Telephone Encounter - Matteo Rebollar MD - 04/21/2024 7:46 PM EDT The following approved medication requests have been transmitted electronically. Requested Prescriptions Pending Prescriptions Disp Refills atorvastatin (LIPITOR) 20 mg tablet 90 tablet 3 Sig: Take 1 tablet by mouth once daily. Please note dose change. Do not cut tablet in half. sertraline (ZOLOFT) 50 mg tablet 90 tablet 3 Sig: Take 1 tablet by mouth once daily. Matteo Rebollar MD [facility]08-12-2024 Miscellaneous Notes* Telephone Encounter - Matteo Rebollar MD - 04/21/2024 7:46 PM EDT The following approved medication requests have been transmitted electronically. Requested Prescriptions Pending Prescriptions Disp Refills atorvastatin (LIPITOR) 20 mg tablet 90 tablet 3 Sig: Take 1 tablet by mouth once daily. Please note dose change. Do not cut tablet in half. sertraline (ZOLOFT) 50 mg tablet 90 tablet 3 Sig: Take 1 tablet by mouth once daily. Matteo Rebollar MD * Telephone Encounter - Meg Zapata LPN - 04/21/2024 7:16 PM EDT Patient has been identified by name and date of : Yes Patient phones for refill(s): Requested Prescriptions Pending Prescriptions Disp Refills atorvastatin (LIPITOR) 20 mg tablet 90 tablet 3 Sig: Take 1 tablet by mouth once daily. Please note dose change. Do not cut tablet in half. sertraline (ZOLOFT) 50 mg tablet 90 tablet 3 Sig: Take 1 tablet by mouth once daily. Date of last office visit in primary care: 02/05/2024 Date of next office visit in primary care: 08/11/2024 Please advise. Thank you. Meg Zapata LPN. documented in this encounterOhio[facility] Telephone encounter Note * Telephone Encounter - Meg Zpaata LPN - 04/21/2024 7:16 PM EDT Patient has been identified by name and date of : Yes Patient phones for refill(s): Requested Prescriptions Pending Prescriptions Disp Refills atorvastatin (LIPITOR) 20 mg tablet 90 tablet 3 Sig: Take 1 tablet by mouth once daily. Please note dose change. Do not cut tablet in half. sertraline (ZOLOFT) 50 mg tablet 90 tablet 3 Sig: Take 1 tablet by mouth once daily. Date of last office visit in primary care: 02/05/2024 Date of next office visit in primary care: 08/11/2024 Please advise. Thank you. Meg Zapata LPN. [facility]07-25-2024 Procedure note* Bessy Garcia MD - 04/03/2024 10:00 AM EDTAssociated Order(s): CYSTOSCOPY Post-Procedure Diagnose(s): Urothelial carcinoma CYSTOSCOPY Date/Time: 04/03/2024 10:00 AM Performed by: Bessy Garcia MD Authorized by: Bessy Garcia MD The attending physician was present for the entire procedure. Pre-Procedure: Indications: bladder cancer Detailed information of all possible complications and side effects were discussed with the patient, these include but not only; UTI, sepsis, hematuria, incontinence, urethral injury and cardiovascular complications. Informed consent was obtained. Does this procedure require a [place] Protocol? Yes. [place] Protocol is required. Procedure: Procedure performed: cystoscopy The patient was placed supine with all pressure points well padded. Patient was prepped and draped in the usual sterile fashion with chlorhexidine. 10 mL of lidocaine 2% topical gel was inserted into urethra for local anesthesia. A penile clamp was not applied. The flexible cystoscope was lubricated and placed into the urethraltract under direct visualization. A 360 survey of the bladder was performed. The cystoscope was reflected and the bladder neck and the ureteral orifices were inspected. The findings are detailed below. The cystoscope was removed following any additional procedures documented below. Findings: The urinary meatus appeared normal. There was not a prominent median lobe. The lateral lobes were not obstructive in appearance. No tumors observed. No bladder fistula present. No foreign bodies observed. No stones found. No trabeculations were found. Both ureteral orifices were normal in size, shape and position with efflux of clearurine. The urethra was inspected. No foreign body(s) present in urethra. No urethral diverticulum observed. No urethral stricture found. Cystoscopy normal Post Procedure: Patient tolerated procedure with no immediate complications EBL: no blood loss Procedure Comments: LUISANA. The patient wishes to stop surveillance cystoscopies on a scheduled basis and will return p.r.n. urinary symptoms such as gross hematuria [facility]07-25-2024 Procedure note* Bessy Garcia MD - 04/03/2024 10:00 AM EDTAssociated Order(s): CYSTOSCOPY Post-Procedure Diagnose(s): Urothelial carcinoma CYSTOSCOPY Date/Time: 04/03/2024 10:00 AM Performed by: Bessy Garcia MD Authorized by: Bessy Garcia MD The attending physician was present for the entire procedure. Pre-Procedure: Indications: bladder cancer Detailed information of all possible complications and side effects were discussed with the patient, these include but not only; UTI, sepsis, hematuria, incontinence, urethral injury and cardiovascular complications. Informed consent was obtained. Does this procedure require a [place] Protocol? Yes. [place] Protocol is required. Procedure: Procedure performed: cystoscopy The patient was placed supine with all pressure points well padded. Patient was prepped and draped in the usual sterile fashion with chlorhexidine. 10 mL of lidocaine 2% topical gel was inserted into urethra for local anesthesia. A penile clamp was not applied. The flexible cystoscope was lubricated and placed into the urethraltract under direct visualization. A 360 survey of the bladder was performed. The cystoscope was reflected and the bladder neck and the ureteral orifices were inspected. The findings are detailed below. The cystoscope was removed following any additional procedures documented below. Findings: The urinary meatus appeared normal. There was not a prominent median lobe. The lateral lobes were not obstructive in appearance. No tumors observed. No bladder fistula present. No foreign bodies observed. No stones found. No trabeculations were found. Both ureteral orifices were normal in size, shape and position with efflux of clearurine. The urethra was inspected. No foreign body(s) present in urethra. No urethral diverticulum observed. No urethral stricture found. Cystoscopy normal Post Procedure: Patient tolerated procedure with no immediate complications EBL: no blood loss Procedure Comments: LUISANA. The patient wishes to stop surveillance cystoscopies on a scheduled basis and will return p.r.n. urinary symptoms such as gross hematuria [facility] Tele[facility] encounter Note* Telephone Encounter - Modesta Saldivar MA - 03/20/2024 3:08 PM EDT Patient Dipika notified of results, verbalized understanding of instructions given and will picker operator medication to have patient start today. Modesta Saldivar MA [facility]07-11-2024 Miscellaneous Notes* Telephone Encounter - Modesta Saldivar MA - 03/20/2024 3:08 PM EDT Patient Dipika notified of results, verbalized understanding of instructions given and will picker operator medication to have patient start today. Modesta Saldivar MA * Telephone Encounter - Gin French APRN.CNP - 03/20/2024 2:06 PM EDT Cx reveals bacterial growth. Patient will need to start taking oral ATB Doxycycline called in to [facility] Please advise patient. documented in this encounterOhio[facility]07-[facility]-2024 Telephone encounter Note * Telephone Encounter - Gin French APRN.CNP - 03/20/2024 2:06 PM EDT Cx reveals bacterial growth. Patient will need to start taking oral ATB Doxycycline called in to [facility] Please advise patient. [facility]07-08-2024 History of Present illness Narrative* Raoul Cash MD - 03/17/2024 3:00 PM EDT Patient presents with: Rash: Rash on chest with nerve pain x 5 days HPI: Rash: Location: right and left chest near the axilla Duration: initially last week noticed what felt like bugs biting him Pruritis: Yes Pain: No Change: Bleeding/ulceration/blister/pustule: small red bumps Contacts with rash: No Exposure: Outdoor exposure: was mowing 2 hours the day he felt the bite-like pricks. Change in medications: finished chemo for bladder cancer a couple months ago. Recent illness: No. Treatment: skin cream for radiation PHx of zoster. He has had 3 shingles vaccinations since. MEDICATIONS: buPROPion XL (WELLBUTRIN XL) 150 mg 24 hr tablet Take 1 tablet by mouth once daily. albuterol HFA (VENTOLIN HFA) 90 mcg/actuation inhaler Inhale 2 Puffs as instructed every 4 hours asneeded for wheezing/shortness of breath. Patient requests [employer] brand 60 puffs for $9 sildenafil (VIAGRA) 100 mg tablet Take half to whole pill as directed prior to intercourse. levothyroxine (SYNTHROID) 112 mcg tablet Take 1 tablet by mouth once daily. Lancets (ONETOUCH ULTRASOFT LANCETS) lancets Test blood sugar(s) twice daily and as needed. Dx: Uncontrolled type 2 diabetes without complication E11.65. Insulin: no blood sugar diagnostic (ONETOUCH ULTRA TEST) test strip Test blood sugar(s) twice daily and as needed. Dx: Uncontrolled type 2 diabetes without complication E11.65. Insulin: no glipiZIDE (GLUCOTROL) 5 mg tablet Take 1 tablet by mouth twice daily before meals. As directed (Patient taking differently: Take 5 mg by mouth two times a day before meals. Taking as needed.) atorvastatin (LIPITOR) 20 mg tablet Take 1 tablet by mouth once daily. Please note dose change. Do not cut tablet in half. sertraline (ZOLOFT) 50 mg tablet Take 1 tablet by mouth once daily. blood sugar diagnostic (TRUE METRIX GLUCOSE TEST STRIP) test strip 1 Strip once daily. Use as instructed ALLERGIES: ALLERGIES Allergen Reactions Metformin Diarrhea, GI Upset Tried 2 doses and had adverse effects each time Ipratropium Other: See Comments In albuterol inhaler Breathing difficulty Seasonal Allergies Cough hayfever VITALS: BP 110/64 Pulse 84 Temp 36.2 C (97.1 F) (Tympanic) Resp 16 Wt 88.7 kg (195 lb 8.8 oz) SpO2 97% BMI 29.30 kg/m PHYSICAL EXAM: GEN: pleasant, no acute distress, alert SKIN: ~ 1/2 dozen 2mm erythematous papules on the lateral pectoral areas and below the axilla. 1 white pustule mid chest in the anterior axillary line. Some of the other papules appear to have clear fluid collection which can be released with maceration. ASSESSMENT/PLAN: 1. Pustule - ICD9: 686.9, ICD10: L08.9 (primary diagnosis) 2. Papule of skin - ICD9: 709.8, ICD10: R23.8 Seems most like arthropod bites/stings. Differential includes folliculitis. Low likelihood of post chemo zoster. - ABSCESS AND WOUND CULTURE WITH GRAM STAIN He will apply OTC steroid cream. Raoul Cash MD documented in this encounterOhio[facility]06-[facility]24 Telephone encounter Note * Telephone Encounter - Patricia Hammond LPN - 02/29/2024 4:31 PM EDT Patient updated that lab results received and scanned into Chart. Patricia Hammond LPN [facility]06-21-2024 Miscellaneous Notes* Telephone Encounter - Patricia Hammond LPN - 02/29/2024 4:31 PM EDT Patient updated that lab results received and scanned into Chart. Patricia Hammond LPN documented in this encounterOhio[facility]06-[facility]-2024 Telephone encounter Note * Telephone Encounter - Amina Neumann LPN - 02/15/2024 2:50 PM EDT Patient has one 90 day prescription left but it is too soon to request refills at this time. Patient will be able to request refill on 03/21/24. Patient notified. Patient states he is not out of medication and will request prescription at that time. [facility]06-07-2024 Miscellaneous Notes* Telephone Encounter - Amina Neumann LPN - 02/15/2024 2:50 PM EDT Patient has one 90 day prescription left but it is too soon to request refills at this time. Patient will be able to request refill on 03/21/24. Patient notified. Patient states he is not out of medication and will request prescription at that time. * Telephone Encounter - Myriam Fabian - 02/15/2024 11:42 AM EDT Patient has been identified by name and date of : Yes, Provider Dr. Rebollar Date 02-15-24 Time 11:43a Patient phones for refill(s): Requested Prescriptions Pending Prescriptions Disp Refills levothyroxine (SYNTHROID) 112 mcg tablet 90 tablet 3 Sig: Take 1 tablet by mouth once daily. Date of last office visit in primary care: 02/05/2024 Date of next office visit in primary care: 08/11/2024 Patient needs script sent to mail order pharmacy. Please advise. Thank you. Myriam Wren. documented in this encounterOhio[facility]06-07-2024 Telephone encounter Note * Telephone Encounter - Myriam Fabian - 02/15/2024 11:42 AM EDT Patient has been identified by name and date of : Yes, Provider Dr. Rebollar Date 02-15-24 Time 11:43a Patient phones for refill(s): Requested Prescriptions Pending Prescriptions Disp Refills levothyroxine (SYNTHROID) 112 mcg tablet 90 tablet 3 Sig: Take 1 tablet by mouth once daily. Date of last office visit in primary care: 02/05/2024 Date of next office visit in primary care: 08/11/2024 Patient needs script sent to mail order pharmacy. Please advise. Thank you. Myriam Wren. [facility]05-28-2024 History of Present illness Narrative* Dixon Rosen APRN.COUNSEL - 02/05/2024 8:34 AM EDT SUBJECTIVE Debo Hull is a 78 year old male here today for a check up on his medical problems. Chief Complaint Patient presents with: F/U 6 months HPI Debo Hull is a 78 year old male. He is an established patient of Matteo Rebollar MD. Here today for a routine 6 month follow up. History of hypothyroid, DM, neuropathy of both feet, malignantneoplasm of bladder in remission, thrombocytopenia. Overall things are okay. Doing some exercises to help with balance. Some decreased drive with Zoloft. Still with some depression. Upcoming follow up with Oncology in 1-2 weeks with labs. Debo Hull is a 78 year old male here today for a check up on his diabetes. Denies increased urinating, eating, and drinking. Most recent HbA1c tests were: Lab Results Component Value Date HBA1C 5.8 (H) 07/23/2023 HBA1C 7.3 (H) 01/25/2023 HBA1C 7.8 (H) 05/24/2022 His medications were reviewed today and his list is now up to date. Medications Current Outpatient Medications Medication Sig albuterol HFA (VENTOLIN HFA) 90 mcg/actuation inhaler Inhale 2 Puffs as instructed every 4 hours asneeded for wheezing/shortness of breath. Patient requests [employer] 60 puffs for $9 sildenafil (VIAGRA) 100 mg tablet Take half to whole pill as directed prior to intercourse. levothyroxine (SYNTHROID) 112 mcg tablet Take 1 tablet by mouth once daily. glipiZIDE (GLUCOTROL) 5 mg tablet Take 1 tablet by mouth twice daily before meals. As directed (Patient taking differently: Take 5 mg by mouth two times a day before meals. Taking as needed.) atorvastatin (LIPITOR) 20 mg tablet Take 1 tablet by mouth once daily. Please note dose change. Do not cut tablet in half. sertraline (ZOLOFT) 50 mg tablet Take 1 tablet by mouth once daily. buPROPion XL (WELLBUTRIN XL) 150 mg 24 hr tablet Take 1 tablet by mouth once daily. Lancets (ONETOUCH ULTRASOFT LANCETS) lancets Test blood sugar(s) twice daily and as needed. Dx: Uncontrolled type 2 diabetes without complication E11.65. Insulin: no blood sugar diagnostic (ONETOUCH ULTRA TEST) test strip Test blood sugar(s) twice daily and as needed. Dx: Uncontrolled type 2 diabetes without complication E11.65. Insulin: no blood sugar diagnostic (TRUE METRIX GLUCOSE TEST STRIP) test strip 1 Strip once daily. Use as instructed No current facility-administered medications for this visit. 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 Thrombocytopenia (Hcc) - 10/24/2020 Mixed Hyperlipidemia - 10/24/2020 Overweight (Bmi 25.0-29.9) - 09/16/2019 Bph Loc W/O Ur Obs/Luts - 05/22/2016 Diabetes Mellitus Type 2, Controlled, Without Complications ([facility]) - 02/04/2016 Acquired Hypothyroidism - 06/17/2015 Elevated Ck - 01/10/2015 History of Urinary Retention - 05/21/2014 Cough Variant Asthma - 12/10/2013 Ed (Erectile Dysfunction) - 02/10/2013 Multinodular Goiter - 05/21/2012 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) - 04/16/2012 Nontoxic Uninodular Goiter - 04/10/2012 Depression - 03/27/2012 Atypical Nevus of Abdominal Wall - 02/18/2012 Melanocytic Nevi of Trunk - 02/18/2012 Seborrheic Keratoses - 02/18/2012 Solar Lentigines - 02/18/2012 Actinic Skin Damage - 02/18/2012 Braun Angioma - 02/18/2012 Cutaneous Skin Tags - 02/18/2012 Surgical Scars - 02/18/2012 Benign Prostatic Hyperplasia Without Lower Urinary Tract Symptoms - 07/05/2011 Pure Hypercholesterolemia - 02/13/2006 Social History Tobacco Use Smoking status: Some Days Types: Cigars Passive exposure: Yes Smokeless tobacco: Never Tobacco comments: occasionally smoke a cigar Substance Use Topics Alcohol use: Yes Comment: 2 x weekly Drug use: No Review of Systems Respiratory: Negative. Cardiovascular: Negative. OBJECTIVE BP 110/66 Pulse 71 Wt 194 lb (88.0kg) SpO2 98% Physical Exam Vitals and nursing note reviewed. Constitutional: General: He is awake. He is not in acute distress. Appearance: Normal appearance. He is well-developed and well-groomed. He is not ill-appearing, toxic-appearing or diaphoretic. HENT: Head: Normocephalic. Right Ear: External ear normal. Left Ear: External ear normal. Nose: Nose normal. Eyes: General: Vision grossly intact. Conjunctiva/sclera: Conjunctivae normal. Pupils: Pupils are equal, round, and reactive to light. Neck: Vascular: No JVD. Trachea: Trachea normal. Cardiovascular: Rate and Rhythm: Normal rate and regular rhythm. Pulses: Normal pulses. Heart sounds: Normal heart sounds. No murmur heard. Pulmonary: Effort: Pulmonary effort is normal. No accessory muscle usage, prolonged expiration or respiratory distress. Breath sounds: Normal breath sounds. Musculoskeletal: Cervical back: Neck supple. Skin: General: Skin is warm and dry. Capillary Refill: Capillary refill takes less than 2 seconds. Neurological: General: No focal deficit present. Mental Status: He is alert and oriented to person, place, and time. Mental status is at baseline. Psychiatric: Attention and Perception: Attention and perception normal. Mood and Affect: Mood and affect normal. Speech: Speech normal. Behavior: Behavior normal. Behavior is cooperative. Thought Content: Thought content normal. Cognition and Memory: Cognition and memory normal. Judgment: Judgment normal. ASSESSMENT/PLAN: 1. Malignant neoplasm of urinary bladder, unspecified site (HCC) - ICD9: 188.9, ICD10: C67.9 (primary diagnosis) Following with hem/onc, he has been stable. 2. 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 Thrombocytopenia (HCC) - ICD9: 287.5, ICD10: D69.6 See #1 4. Depression, unspecified depression type - ICD9: 311, ICD10: F32.A Can trial adding Wellbutrin, if helpful then we can decrease Zoloft if he would like. Return to office sooner if needed, he will send an update in a few weeks via my chart or call in. - BUPROPION XL 150 MG TAB 5. Neuropathy of both feet - ICD9: 356.9, ICD10: G57.93 Stable, doing home exercises to help balance. 6. Controlled type 2 diabetes mellitus with diabetic polyneuropathy, without long-term current use of insulin (HCC) - ICD9: 250.60, 357.2, ICD10: E11.42 - Control undetermined but controlled per prior labs, due for labs - Continue current medications - Counseled on healthy diet and regular exercise - HEMOGLOBIN A1C - ALBUMIN/CREATININE RATIO, URINE 7. Pure hypercholesterolemia - ICD9: 272.0, ICD10: E78.00 - LIPID PANEL, NONFASTING Portions of this note have been entered by ancillary staff. I have reviewed and when necessary edited, so that they are an adequate record of my encounter with this patient Please note that parts of this document were created using voice recognition software and therefore may contain grammatical errors. Patient verbalizes understanding of instructions from today's visit and in agreement with treatmentplan. Questions answered. Agrees to call the office if questions, concerns of issues with acute symptoms not improving or if they worsen. See diagnoses and orders for additional plan(s). Allergies and medications were reviewed, list was updated, and refills given if needed. Past medical, surgical, social, and family history reviewed and updated as appropriate. Encouraged proper diet & exercise as well as compliance with taking medications. Age- appropriate health preventative measures were discussed. Return if symptoms worsen or fail to improve, for Keep next scheduled appointment.. Dixon Rosen APRN-SEFERINO documented in this encounterOhio[facility]-03-[facility]24 Telephone encounter Note * Telephone Encounter - [place] Brunilda Wren - 01/11/2024 8:22 AM EDT Patient has been identified by name and date of : Yes Patient phones for refill(s): Requested Prescriptions Pending Prescriptions Disp Refills albuterol HFA (VENTOLIN HFA) 90 mcg/actuation inhaler 1 Each 2 Sig: Inhale 2 Puffs as instructed every 4 hours as needed for wheezing/shortness of breath. Patientrequests Relion brand 60 puffs for $9 Date of last office visit in primary care: 08/07/2023 Date of next office visit in primary care: 02/05/2024 Please advise. Thank you. Brunilda Wren. [facility] Miscellaneous Notes* Telephone Encounter - [place] Brunilda Wren - 01/11/2024 8:22 AM EDT Patient has been identified by name and date of : Yes Patient phones for refill(s): Requested Prescriptions Pending Prescriptions Disp Refills albuterol HFA (VENTOLIN HFA) 90 mcg/actuation inhaler 1 Each 2 Sig: Inhale 2 Puffs as instructed every 4 hours as needed for wheezing/shortness of breath. Patientrequests Relion brand 60 puffs for $9 Date of last office visit in primary care: 08/07/2023 Date of next office visit in primary care: 02/05/2024 Please advise. Thank you. Brunilda Wren. documented in this encounterOhiohealth [facility]11-28-2023 History of Present illness Narrative* Matteo Rebollar MD - 08/07/2023 8:12 AM EST This note was created using [employer]. Subjective Debo Hull is a 78 year old male. Patient presents with: F/U 6 months: Labs prior SUBJECTIVE: Debo Hull is a 78 year old year old gentleman here today for 6 month follow up appointment for review of medical conditions. 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 Plan: Plan was made to complete consolidative radiation therapy consisting of 4500 cGydelivered to the right inguinal lymph node region with a simultaneous integratedboost to 5500 cGy delivered to the concerning lymph nodes all in 25 fractions. Tinnitus--getting better Balance--mild neuropathy in feet. COVID vaccine discussed. Thyroid See assessment and plan for other issues addressed. PAST MEDICAL HISTORY Diagnosis Date Actinic skin damage 02/18/2012 BPH w urinary obs/LUTS 07/05/2011 Cough variant asthma 12/10/2013 Depression Diverticulosis of colon (without mention of hemorrhage) Family history of malignant neoplasm of gastrointestinal tract family history of colon cancer; due for colonoscopy 2016 (last done 2011 and 2005) Frozen shoulder Dr. Slaughter managing; started around Jun 2013 Hypothyroidism Internal hemorrhoids without mention of complication Multinodular goiter 05/21/2012 PURE HYPERCHOLESTEROLEM 02/13/2006 Shingles ~2001 Current Outpatient Medications Medication Sig levothyroxine (SYNTHROID) 112 mcg tablet Take 1 tablet by mouth once daily. Lancets (ONETOUCH ULTRASOFT LANCETS) lancets Test blood sugar(s) twice daily and as needed. Dx: Uncontrolled type 2 diabetes without complication E11.65. Insulin: no blood sugar diagnostic (ONETOUCH ULTRA TEST) test strip Test blood sugar(s) twice daily and as needed. Dx: Uncontrolled type 2 diabetes without complication E11.65. Insulin: no glipiZIDE (GLUCOTROL) 5 mg tablet Take 1 tablet by mouth twice daily before meals. As directed atorvastatin (LIPITOR) 20 mg tablet Take 1 tablet by mouth once daily. Please note dose change. Do not cut tablet in half. sertraline (ZOLOFT) 50 mg tablet Take 1 tablet by mouth once daily. tamsulosin (FLOMAX) 0.4 mg Take 1 capsule by mouth once daily. finasteride (PROSCAR) 5 mg tablet Take 1 tablet by mouth once daily. blood sugar diagnostic (TRUE METRIX GLUCOSE TEST STRIP) test strip 1 Strip once daily. Use as instructed albuterol HFA (VENTOLIN HFA) 90 mcg/actuation inhaler Inhale 2 Puffs as instructed every 4 hours asneeded for wheezing/shortness of breath. Patient requests Relion brand 60 puffs for $9 sildenafil (VIAGRA) 100 mg tablet Take half to whole pill as directed prior to intercourse. No current facility-administered medications for this visit. Review of Systems Objective BP 106/70 Pulse 70 Temp 37.3 C (99.1 F) Resp 18 Wt 82.1 kg (181 lb) SpO2 99% BMI 27.12 kg/m Physical Exam Vitals reviewed. Constitutional: Appearance: Normal appearance. Eyes: Conjunctiva/sclera: Conjunctivae normal. Cardiovascular: Rate and Rhythm: Normal rate and regular rhythm. Heart sounds: Normal heart sounds. Pulmonary: Effort: Pulmonary effort is normal. Breath sounds: Normal breath sounds. Musculoskeletal: Right lower leg: No edema. Left lower leg: No edema. Skin: General: Skin is warm and dry. Neurological: General: No focal deficit present. Mental Status: He is alert and oriented to person, place, and time. Psychiatric: Mood and Affect: Mood normal. Behavior: Behavior normal. Thought Content: Thought content normal. Judgment: Judgment normal. Component Latest Ref Rng & Units 07/23/2023 Protein, Total 6.3 - 8.0 g/dL 6.4 Albumin 3.9 - 4.9 g/dL 4.5 Calcium 8.5 - 10.2 mg/dL 9.8 Bilirubin, Total 0.2 - 1.3 mg/dL 0.3 Alkaline Phosphatase 38 - 113 U/L 75 AST 14 - 40 U/L 20 ALT 10 - 54 U/L 18 Glucose 74 - 99 mg/dL 123 (H) BUN 9 - 24 mg/dL 19 Creatinine 0.73 - 1.22 mg/dL 1.04 Sodium 136 - 144 mmol/L 139 Potassium 3.7 - 5.1 mmol/L 4.8 Chloride 97 - 105 mmol/L 104 CO2 22 - 30 mmol/L 23 Anion Gap 9 - 18 mmol/L 12 eGFR >=60 mL/min/1.73m 73 WBC 3.70 - 11.00 k/uL 5.20 RBC 4.20 - 6.00 m/uL 3.54 (L) Hemoglobin 13.0 - 17.0 g/dL 11.6 (L) Hematocrit 39.0 - 51.0 % 37.1 (L) MCV 80.0 - 100.0 fL 104.8 (H) MCH 26.0 - 34.0 pg 32.8 MCHC 30.5 - 36.0 g/dL 31.3 RDW-CV 11.5 - 15.0 % 14.0 Platelet Count 150 - 400 k/uL 99 (L) MPV 9.0 - 12.7 fL 12.0 Absolute nRBC <0.01 k/uL <0.01 Cholesterol, Total <200 mg/dL 133 Triglyceride <150 mg/dL 107 HDL Cholesterol >39 mg/dL 41 Non HDL Cholesterol <130 mg/dL 92 Fasting Time hrs 12 VLDL Cholesterol <30 mg/dL 21 TC:HDL Ratio <5.10 3.24 LDL Cholesterol <100 mg/dL 71 LDL:HDL Ratio <2.54 1.73 Hemoglobin A1C 4.3 - 5.6 % 5.8 (H) Estimated Average Glucose mg/dL 120 TSH 0.270 - 4.200 mIU/L 0.068 (L) Free T4 0.9 - 1.7 ng/dL 1.9 (H) Free T3 2.3 - 4.1 pg/mL 3.1 Assessment and Plan Encounter Diagnosis ICD-10-CM 1. Acquired hypothyroidism E03.9 Last TSH suppressed. Discussed management 2. Controlled type 2 diabetes mellitus without complication, without long-term current use of insulin (HCC) E11.9 Hemoglobin A1C good at 5.8. Continue presnet management 3. Balance problem R26.89 Attributed to neuropathy of feet. Fall prevention discussed. Consider PT for balance evaluation andtreatment 4. Neuropathy of both feet G57.93 Further evaluation and treatment as needed 5. Tinnitus of both ears H93.13 Doing better. Further eval and tx as indicated 6. Malignant neoplasm of urinary bladder, unspecified site (HCC) C67.9 Reviewed diagnosis and treatment through urology and oncology on Care Everywhere and discussion with patient and . 7. Encounter for immunization Z23 [employer] COVID-19 VACCINE (2022- SEASON) AGE 12+ YR Reviewed R/B/I/A with patient and .. Decided to get vaccine today for COVID 19 8. 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 Thrombocytopenia (HCC) D69.6 Noted on labs. Follow up labs ordered and following up with oncologist managing treatment Above issues addressed with patient. Patient involved in shared decision making for management of medical issues. History and medications reviewed. Epic updated as needed Refills and/or prescriptions taken care of and meds adjusted as indicated after reviewed history, exam and labs. Health Maintenance reviewed. Updated record and/or ordered tests as recorded. Encouraged on efforts at healthy diet and regular exercise and adequate sleep. Has labs ordered already for follow up on dose adjustment for thyroid, etc. TSH was suppressed so dose was decreased. Mtateo Rebollar MD documented in this encounterOhio[facility]11-21-2023 Miscellaneous Notes* Telephone Encounter - Matteo Rebollar MD - 07/31/2023 1:36 PM EST Will lower dose since TSH suppressed and Free T4 high consistent with dose being too high. The following approved medication requests have been transmitted electronically. Requested Prescriptions Signed Prescriptions Disp Refills levothyroxine (SYNTHROID) 112 mcg tablet 90 tablet 3 Sig: Take 1 tablet by mouth once daily. Matteo Rebollar MD Check lab after 6 weeks. Noted lipids fine, HgA1C good. Anemia noted with high MCV. Probably B12 deficient. Can check that if other doctor(s) not managing anemia. Filed orders in case other doctor(s) not checking. Can cancel CBC,B12 and folate if not needing. If okay with other provider, okay to take B12 and folate even before checking lab. * Telephone Encounter - Lisa Ontiveros LPN - 07/31/2023 9:33 AM EST Pt's calls to check on status of request. Pcp nurse, Patricia notified . Lisa Ontiveros LPN * Telephone Encounter - Prerna Sierra LPN - 07/30/2023 8:38 AM EST Patient Savita calling asking if hisband thyroid medication needs adjusted. He is currently taking Levothyroxine 125 mcg one tablet daily. He uses [facility] for his pharmacy. phone number is [phone]. Please advise Component Latest Ref Rng & Units 07/23/2023 WBC 3.70 - 11.00 k/uL 5.20 RBC 4.20 - 6.00 m/uL 3.54 (L) Hemoglobin 13.0 - 17.0 g/dL 11.6 (L) Hematocrit 39.0 - 51.0 % 37.1 (L) MCV 80.0 - 100.0 fL 104.8 (H) MCH 26.0 - 34.0 pg 32.8 MCHC 30.5 - 36.0 g/dL 31.3 RDW-CV 11.5 - 15.0 % 14.0 Platelet Count 150 - 400 k/uL 99 (L) MPV 9.0 - 12.7 fL 12.0 Absolute nRBC <0.01 k/uL <0.01 Cholesterol, Total <200 mg/dL 133 Triglyceride <150 mg/dL 107 HDL Cholesterol >39 mg/dL 41 Non HDL Cholesterol <130 mg/dL 92 Fasting Time hrs 12 VLDL Cholesterol <30 mg/dL 21 TC:HDL Ratio <5.10 3.24 LDL Cholesterol <100 mg/dL 71 LDL:HDL Ratio <2.54 1.73 Hemoglobin A1C 4.3 - 5.6 % 5.8 (H) Estimated Average Glucose mg/dL 120 TSH 0.270 - 4.200 mIU/L 0.068 (L) Free T4 0.9 - 1.7 ng/dL 1.9 (H) Free T3 2.3 - 4.1 pg/mL 3.1 documented in this encounterOhiohealth [facility]08-22-2023 Miscellaneous Notes* Telephone Encounter - Maya Andre LPN - 05/01/2023 4:58 PM EDT aware of same and will update in 1-2 weeks. * Telephone Encounter - Dixon Rosen APRN.CNP - 05/01/2023 4:33 PM EDT Please let them know it would be okay to use a 3rd dose of glipizide if needed, max dose is 20 mg in a day and this would only be 15 mg in a day. Can use the same approach as they are now but includelunch with the PM so it would be: over 140 in am fasting will give one over 160 at lunch fasting give one Over 160 in pm fasting give one * Telephone Encounter - Bharati Jasmine LPN - 05/01/2023 2:52 PM EDT calling to let you know pt has been taking the Glipizide twice a day one with breakfast and one with evening meal. Pt's blood sugars are going up during the lunch and she is asking if pt would benefit taking a Glipizide with lunch also. Blood sugar is usually around 200 or more. Pt has not had much of an appetiteand has been told to give him what ever he wants and usually it is carbs. Pt has his chemo treatment-[facility] Scale they have been going on over 140 in am fasting will give one over 160 in the pm fasting will give another one. Please advise . They have medication at home and do not need a refill yet. Just want permissionto give another Glipizide to pt if needed. Bharati Jasmine LPN documented in this encounterOhiohealth [facility]08-17-2023 Miscellaneous Notes* Telephone Encounter - Bharati Jasmine LPN - 04/26/2023 10:27 AM EDT spoke with pt and information listed below given. Bharati Jasmine LPN * Telephone Encounter - Matteo Rebollar MD - 04/25/2023 6:01 PM EDT Noted As long as able to get sugars done in a few day with Glucotrol with current dosage, can stay the course. Keep me posted * Telephone Encounter - Rosalinda Auguste - 04/24/2023 8:16 AM EDT Patient's called in to ask about refill request and gave an update on the patient's blood sugar numbers. He takes Glucotrol if he's above 140 fasting. In the evening, if it's above 150-160, he takes another Glucotrol . He had chemo yesterday, when he got home from that, it was over 300. About the 5th day after chemo, he may not need any Glucotrol at all, it's just the chemo plays havoc with his blood sugar. * Telephone Encounter - Matteo Rebollar MD - 04/23/2023 12:47 PM EDT Doubled the dispense number. How are blood sugars doing now? The following approved medication requests have been transmitted electronically. Requested Prescriptions Signed Prescriptions Disp Refills Lancets (ONETOUCH ULTRASOFT LANCETS) lancets 200 Each 3 Sig: Test blood sugar(s) twice daily and as needed. Dx: Uncontrolled type 2 diabetes without complication E11.65. Insulin: no Authorizing Provider: MATTEO REBOLLAR blood sugar diagnostic (ONETOUCH ULTRA TEST) test strip 200 Strip 3 Sig: Test blood sugar(s) twice daily and as needed. Dx: Uncontrolled type 2 diabetes without complication E11.65. Insulin: no Authorizing Provider: MATTEO REBOLLAR MD * Telephone Encounter - ChristineAde clemons Dom - 04/23/2023 10:27 AM EDT Patient's blood sugar's have been higher since on chemo. Patient currently is checking his blood sugar twice a day instead of once. He is asking for more lancets and test strips per month so he does not run out. Please review and ad vice patient. Patient has been identified by name and date of : Yes Last office visit in this department: Visit date not found RX INSTRUCTIONS: Patient requesting a call when RX is approved and sent to the pharmacy. Please call patient at: [phone] Patient phones requesting refills as follows: Requested Prescriptions Pending Prescriptions Disp Refills Lancets (ONETOUCH ULTRASOFT LANCETS) lancets 100 Each 3 Sig: Test blood sugar(s) once daily. Dx: controlled type 2 diabetes without complication. Insulin: no blood sugar diagnostic (ONETOUCH ULTRA TEST) test strip 100 Strip 3 Sig: Test blood sugar(s) once daily. Dx: controlled type 2 diabetes without complication. Insulin: no Please review and advise. Ade King documented in this encounterOhiohealth [facility]08-10-2023 Progress note Author Teo Ross [facility] April 19, 2023 7:01am Note Date/Time April 19, 2023 7: 01am [facility] Medical Records Department [address] [place] [address] Progress Note - Urology 04/19/23 07 MR#: [id number] Acct: [id number] Name: DEBO HULL Rep #:[id number] : 1945 78 From: Teo Ross MD PCP: Dr. Matteo Rebollar MD Status:AD M AZAEL Location: MS3 [id number] Subjective Subjective Status post transurethral resection of the prostate, urine is fairly clear, we can remove the catheter this morning and patient can go home after he is able tourinate. Spoke to the family and the patient regarding postop care I will see him in 2 weeks for checkup Objective Data Objective Data Vital Signs: Vital Signs Temp Pulse Resp BP Pulse Ox O2 Del Method 96.9 F L 70 18 97/59 L 94 Room Air 04/19/23 05:25 04/19/23 05:25 04/19/23 05:25 04/19/23 05:25 04/19/23 05:25 04/19/23 05:25 Oxygen Delivery Method Room Air Weight: 87.54 kg Body Mass Index (BMI) 27.6 Intake & Output: Intake and Output for Last 24 Hours 04/17/23 04/18/23 04/19/23 23:59 23:59 23:59 Intake Total 1810 / 1910 1515.0 / 1515.0 Output Total 2600 / 2600 500 / 500 Balance -790 / -690 1015.0 / 1015.0 Lab / Micro Data Labs: Laboratory Results - last 24 hr 04/18/23 12:23: POC Glucose 107 H 04/18/23 15:59: POC Glucose 114 H 04/19/23 0701 <Electronically signed by Teo Ross MD> Cosigner Signature (if applicable): CC: ~ Signed [facility] Work Phone: 1(354) 772-607408-09-2023 Discharge summary Author Teo Ross [facility] April 18, 2023 3:44pm Note Date/Time April 18, 2023 3:4 4pm [facility] Medical Records Department [address] [place] [address] Instructions for Home/Discharge Instructions 04/18/23 1544 MR#: [id number] Acct: [id number] Name: DEBO HULL Rep #:[id number] : 1945 78 From: Teo Ross MD PCP: Dr. Matteo Rebollar MD Status:[facility] Discharge Instructions Diet Discharge Diet: No restrictions Activity Discharge Activity: Return to Normal Activity Dressing / Incision Call your doctor if you observe: Fever of 101 or Higher Follow Up Care Please Follow Up With: Teo Ross MD When: Call [phone] for an appointment Test Results: Test results from this visit will be discussed in further detail at your follow- up appointment, if applicable. Discharge Plan Admission Primary Reason for Your Visit: [facility] Attending Provider: Teo Ross Primary Care Provider: Matteo Rebollar Instructions Patient Instructions: [facility] Home Recovery, [facility] Recovery Discharge Orders/Prescriptions Prescriptions: New ciprofloxacin HCl [Cipro] 500 mg tablet 500 mg PO BID Qty: 10 0RF Continued sertraline 50 mg tablet 50 mg PO QDAY sildenafil 100 mg tablet 100 mg PO ONCE PRN (Reason: Edema) levothyroxine 125 mcg capsule 125 mcg capsule 25 mcg PO QDAY atorvastatin [Lipitor] 20 mg tablet 40 mg PO QDAY lidocaine-prilocaine 2.5-2.5 % cream 1 applic topical ONCE PRN (Reason: port access) 30 Days Qty: 30 2RF ondansetron 8 mg tablet,disintegrating 8 mg PO Q8H PRN (Reason: nausea and vomiting) Qty: 30 2RF prochlorperazine maleate 10 mg tablet 10 mg PO Q6H PRN (Reason: nausea and vomiting) Qty: 30 2RF betamethasone, augmented 0.05 % cream 1 applic topical DAILY Patient Comments: Apply to rash on body you can see or feel 1x daily as needed. Avoid using on face. glipizide 5 mg tablet 5 mg PO BID Rx Instructions: administer if blood sugar >250 docusate sodium [Stool Softener] 100 mg capsule 100 mg PO DAILY bisacodyl [Dulcolax (bisacodyl)] 5 mg tablet,delayed release (DR/EC) 5 mg PO DAILY PRN (Reason: constipation) polyethylene glycol 3350 [Miralax] 17 gram powder in packet 17 g PO DAILY PRN (Reason: constipation) albuterol sulfate 90 mcg/actuation HFA aerosol inhaler 1 puff INHALATION PRN PRN (Reason: ALLERGIES) Patient Comments: INHALE 2 PUFFS BY MOUTH EVERY 4 HOURS NEEDED for wheezing/ SHORTNESS OF BREATH DIRECTED ibuprofen 600 mg tablet 600 mg PO Q6H PRN (Reason: pain) Qty: 14 0RF ciprofloxacin HCl [Cipro] 500 mg tablet 500 mg PO BID Discontinued finasteride [Proscar] 5 mg tablet 5 mg PO QDAY tamsulosin 0.4 mg capsule 0.8 mg PO QHS Other Ambulatory Orders: 12 Lead EKG (Routine) Timeframe: [id number] Location: None Selected Ordered By: Dr. Ángel Be Referrals / Follow Up: Teo Ross MD [Med Staff - Active Staff] - Matteo Rebollar MD [Primary Care Provider] - Disposition Disposition (needs filled in before D/C Order can be placed): Home, Self Care 04/18/23 9005<Electronically signed by Teo Ross MD>Teo Ross MD CC: Dr. Matteo Rebollar MD ~ Signed [facility] Work Phone: 1(878) 523-463508-09-2023 History and physical note Author Teo Ross [facility] April 18, 2023 3:44pm Note Date/Time April 18, 2023 3:4 4pm [facility] Medical Records Department [address] [place] [address] History & Physical Exam 04/18/23 1543 MR#: [id number] Acct: [id number] Name: DEBO HULL Rep #:[id number] : 1945 78 From: Teo Ross MD PCP: Dr. Matteo Rebollar MD Status:[facility] Location: [place] [address] HPI - General General Date of Service: 04/18/23 Chief Complaint: Frequency and nocturia obstructive prostate HPI Narrative DEBO HULL, is a 78 M who presents for transurethral resection of the prostate he has significant frequency nocturia incomplete bladder emptying we can proceed with a transurethral resection of prostate patient and family memberusing are aware that the surgery may not alleviate all his symptoms or may take time to recover to have his urinary symptoms improved but hopefully with the surgery he will have improvement in his urinary problems. 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 Prerenal azotemia Skin lesion Thrombocytopenia Thyroid disease Wears glasses Home Medications sertraline 50 mg tablet 50 mg PO QDAY 09/07/17 [History Last Taken 04/17/23] sildenafil 100 mg tablet 100 mg PO ONCE PRN Edema 09/07/17 [History Last Taken Unknown] albuterol sulfate 90 mcg/actuation aerosol inhaler 1 puff inhalation PRN PRN ALLERGIES 06/15/21 [History Last Taken Unknown] ibuprofen 600 mg tablet 600 mg PO Q6H PRN pain #14 tabs 06/22/21 [Rx Last Taken Unknown] atorvastatin 20 mg tablet (Lipitor) 40 mg PO QDAY 12/05/22 [History Last Taken 04/17/23] levothyroxine 125 mcg capsule 25 mcg PO QDAY 12/05/22 [History Last Taken 04/18/23] lidocaine-prilocaine 2.5 %-2.5 % topical cream 1 applic topical ONCE PRN port access 30 days #30 grams 02/07/23 [Rx Last Taken Unknown] ondansetron 8 mg disintegrating tablet 8 mg PO Q8H PRN nausea and vomiting #30 tabs 02/07/23 [Rx Last Taken Unknown] prochlorperazine maleate 10 mg tablet 10 mg PO Q6H PRN nausea and vomiting #30 tabs 02/07/23 [Rx Last Taken Unknown] betamethasone, augmented 0.05 % topical cream 1 applic topical DAILY 02/20/23 [History Last Taken Unknown] glipizide 5 mg tablet 5 mg PO BID 02/27/23 [History Last Taken 04/16/23] bisacodyl 5 mg tablet,delayed release (Dulcolax (bisacodyl)) 5 mg PO DAILY PRN constipation 03/06/23 [History Last Taken 04/17/23] docusate sodium 100 mg capsule (Stool Softener) 100 mg PO DAILY 03/06/23 [History Last Taken 04/17/23] polyethylene glycol 3350 17 gram oral powder packet (Miralax) 17 g PO DAILY PRN constipation 03/12/23 [History Last Taken 04/17/23] ciprofloxacin HCl 500 mg tablet (Cipro) 500 mg PO BID Prevent more infection 04/13/23 [History Last Taken 04/17/23] ciprofloxacin HCl 500 mg tablet (Cipro) 500 mg PO BID #10 tabs 04/18/23 [Rx Last Taken Unknown] Allergy/AdvReac Type Severity Reaction Status Date / Time ipratropium [From Atrovent] Allergy Severe Other Verified 04/16/23 14:50 Family History Mother Colon cancer Grandmother Colon cancer Grandfather CVA (cerebral vascular accident) Grandmother CVA (cerebral vascular accident) Surgical History History of cystoscopy History of thyroidectomy History of transurethral resection of bladder tumor (TURBT) Hx of colonoscopy Hx of transurethral destruction of bladder lesion Social History Smoking Status: Former smoker alcohol intake: never Vital Signs Vital Signs Vital Signs: 04/18/23 12:35 04/18/23 12:35 Temperature 97.7 F L Temperature Source Temporal Pulse Rate 68 Respiratory Rate 18 Respiratory Pattern Normal Blood Pressure 98/57 L Blood Pressure Mean 70 Blood Pressure Source Monitor Blood Pressure Position Semi-Fowlers Blood Pressure Location Left Arm Pulse Ox 99 Oxygen Delivery Method Room Air Weight Weight: 87.543 kg Body Mass Index (BMI) 27.6 Results Lab / Micro Data Labs: Laboratory Results - last 24 hr 04/18/23 12:23: POC Glucose 107 H 04/18/23 1544 <Electronically signed by Teo Ross MD> Cosigner Signature (if applicable): CC: Dr. Teo Ross MD; Dr. Matteo Rebollar MD~ Signed [facility] Work Phone: [phone] 301-241908-09-2023 Procedure [facility] 03-14-2023 Miscellaneous Notes* Telephone Encounter - Braulio Parisi Ma - 03/14/2023 4:45 PM EDT Patient's notified, verbalized understanding. * Telephone Encounter - Zenobia Albright APRN.CNP - 03/14/2023 2:09 PM EDT The following approved medication requests have been transmitted electronically. Requested Prescriptions Signed Prescriptions Disp Refills Lancets (ONETOUCH ULTRASOFT LANCETS) lancets 100 Each 3 Sig: Test blood sugar(s) once daily. Dx: controlled type 2 diabetes without complication. Insulin: no Authorizing Provider: ZENOBIA ALBRIGHT blood sugar diagnostic (ONETOUCH ULTRA TEST) test strip 100 Strip 3 Sig: Test blood sugar(s) once daily. Dx: controlled type 2 diabetes without complication. Insulin: no Authorizing Provider: ZENOBIA ALBRIGHT APRN.CNP * Telephone Encounter - Sofy Wren - 03/14/2023 11:33 AM EDT Patient currently has a one touch meter and has been getting the wrong lancets for his test meter and is requesting the correct lancets and test scripts. They are currently in town and requesting to pick these up prior to leaving [facility]. Please advise at [phone] [facility] Miscellaneous Notes* Telephone Encounter - Lisa Ontiveros LPN - 02/20/2023 1:48 PM EDT Pt's notified of medication and dr's message concerning dosing. voiced understanding. Lisa Ontiveros LPN * Telephone Encounter - Matteo Rebollar MD - 02/20/2023 1:38 PM EDT The following approved medication requests have been transmitted electronically. Requested Prescriptions Signed Prescriptions Disp Refills glipiZIDE (GLUCOTROL) 5 mg tablet 30 tablet 1 Sig: Take 1 tablet by mouth once daily. As directed for blood sugars over 250 Authorizing Provider: MATTEO REBOLLAR MD Noted that if sugars go too low with taking 5 mg dose, can cut pill in half to take 2.5 mg dose. If once daily not adequate to control sugars, can take 5 mg twice daily as needed for blood sugars over 250. Call and follow up if sugars staying over 300 Push fluids as well. Broth 1 cup as needed for sugars over 300 can help. * Telephone Encounter - Lisa Ontiveros LPN - 02/20/2023 1:32 PM EDT See note below. calls back to report that Decadron causes sugar to spike even more. Pt will be at chemo tx foranother half hour then it's a 40 min ride home. is asking what to do. Lisa Ontiveros LPN * Telephone Encounter - Bharati Jasmine LPN - 02/20/2023 9:57 AM EDT called and pt is going to get chemo today with steroids at Dr. Tyler's office and the [facility]. Pt's blood sugar is 240. Pt does not take and DM medications. Pt had tried Metformin in the past and could not tolerate this. Please advise if there is anything pt needs to do. Bharati Jasmine LPN documented in this encounter[facility]-2023 History and physical note Author Dr. Gomes [facility] February 13, 2023 10:46am Note Date/Time February 13, 2023 10:46 am [facility] Medical Records Department [address] [place] [address] History & Physical Exam 02/13/23 1045 MR#: [id number] Acct: [id number] Name: DEBO HULL Rep #:[id number] : 1945 77 From: Allan Gomes MD PCP: Dr. Matteo Rebollar MD Status:[facility] Location: [place] [address] History and Physical Date of Admission: 02/13/23 Visit Reasons:?PORT PLACEMENT Chief Complaint: port placement Is patient in pain?: No Allergies ipratropium [From Atrovent] Allergy (Severe, Verified 02/12/23 13:17) Other Medications finasteride 5 mg tablet (Proscar) 5 mg PO QDAY 09/07/17 [History Confirmed 02/12/23] sertraline 50 mg tablet 50 mg PO QDAY 09/07/17 [History Confirmed 02/12/23] sildenafil 100 mg tablet 100 mg PO ONCE PRN Edema 09/07/17 [History Confirmed 02/12/23] tamsulosin 0.4 mg capsule 0.4 mg PO QDAY 09/07/17 [History Confirmed 02/12/23] albuterol sulfate 90 mcg/actuation aerosol inhaler 1 puff inhalation PRN PRN ALLERGIES 06/15/21 [History Confirmed 02/12/23] ibuprofen 600 mg tablet 600 mg PO Q6H PRN pain #14 tabs 06/22/21 [Rx Confirmed 02/12/23] atorvastatin 20 mg tablet (Lipitor) 40 mg PO QDAY 12/05/22 [History Confirmed 02/12/23] levothyroxine 125 mcg capsule 25 mcg PO QDAY 12/05/22 [History Confirmed 02/12/23] lidocaine-prilocaine 2.5 %-2.5 % topical cream 1 applic topical ONCE PRN port access 30 days #30 grams 02/07/23 [Rx Confirmed 02/12/23] ondansetron 8 mg disintegrating tablet 8 mg PO Q8H PRN nausea and vomiting #30 tabs 02/07/23 [Rx Confirmed 02/12/23] prochlorperazine maleate 10 mg tablet 10 mg PO Q6H PRN nausea and vomiting #30 tabs 02/07/23 [Rx Confirmed 02/12/23] PFSH Medical History? 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 History of cystoscopy History of thyroidectomy Hx of colonoscopy Hx of transurethral destruction of bladder lesion Family History? Mother Colon cancerGrandmother Colon cancerGrandfather CVA (cerebral vascular accident)Grandmother CVA (cerebral vascular accident) Social History? Smoking Status:? Former smoker alcohol intake:? never HPI HPI HPI: 77-year-old gentleman.? 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 By report he has no evidence of additional metastatic disease.? He had a multidisciplinary conference at [facility] and neoadjuvant systemic chemotherapy recommended.? Patient maybe considered for lymphadenectomy right groin versus radiation treatment.? He isreferred now for placement of a port to facilitate his chemotherapy.? He is to receive cisplatin and gemcitabine ROS General General: No weight change, appetite, fatigue, colon cancer, breast cancer or weakness HEENT HEENT: No difficulty swallowing, eye injury, eye surgery, swollen glands or hoarseness Endo Endocrine: Yes thyroid cancer, Hair loss, heat intolerance and cold intolerance Skin Skin: Yes rash; No changing moles Breast Breast: No left breast lump, right breast lump, nipple discharge, breast pain, abnormal mammogram, abnormal US or breast enlargement Musc Musculoskeletal: Yes arthritis; No back problems, rheumatoid arthritis, gout or joint pain Cardio Cardiovascular: No murmur, pacemaker, heart disease, atrial fibrillation, high blood pressure, heart attack, heart stent, palpitations, shortness of breat withexertion or chest pain Psych Psychiatric: No depression, anxiety or hearing voices Resp Respiratory: No shortness of breath, No sleep apnea, No cough, No COPD, Yes asthma, No emphysema and No wheezing Gastro Gastrointestinal: No abdominal pain, No nausea or vomiting, No diarrhea, No constipation, No blood in stool, No acid reflux, No hemorrhoids, No ulcers, No gallbladder problem and No black,tarry stools Jewel Hematologic: No blood thinners, No blood disorders, No bleeding, No anemia and No blood clots Neuro Neurologic: No system reviewed and no additional complaints, except as documented, No as per HPI, No abnormal gait, No abnormal hearing, No abnormal movements, No abnormal speech, No behavioral changes, No burning sensations, No confusion, No convulsions, No disequilibrium, No dizziness, No localized weakness, No frequent falls, No headache(s), No lack of coordination, No loss ofvision, No memory loss, No numbness, No other visual disturbances, No radicular pain, No restless legs, No sensory deficit, No syncope, No tingling, No tremor(s), No weakness and No other Exam Const General: cooperative, comfortable and no acute distress [facility] Head: normal to inspection Eyes General: appearance normal, both eyes and all related structures Neck Neck: normal visual inspection Chest Chest palpation & inspection: normal inspection of the chest Resp Effort & Inspection: normal respiratory effort Auscultation: clear to auscultation bilaterally Cardio Rate: regular rate Rhythm: regular rhythm GI Inspection: normal to inspection Palpation: soft and no hepatosplenomegaly Musc Cervical Spine: normal cervical lordosis Skin General: no rashes or lesions noted Neuro General: patient alert, patient awake and patient oriented x3 Extrem General: no calf tenderness Psych Appearance: grossly normal Assessment and Plan Assessment and Plan (1) 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 It is then likely that he will potentially have radiotherapy to the right groin.? It appears that a right groin lymphadenectomy will not be required at this time andhe has been instructed in nor will he require a radical cystectomy.? We will tryto schedule and expedite his care.? He is aware of the technique, benefit, risk,alternatives.? We will proceed as noted. Copy: Dr. Matteo Gomes M.D., F.A.C.S I have examined the patient and the H&P has been reviewed. There are no clinicalchanges since date of exam. Allan Gomes M.D., F.A.C.S. 02/13/23 1046 <Electronically signed by Allan Gomes MD> Cosigner Signature (if applicable): CC: Dr. Matteo Rebollar MD; Dr. Allan Gomes MD~ Signed [facility] Work Phone: 1([phone]) 291-959006-01-2023 History of Present illness Narrative* Bessy Garcia MD - 02/08/2023 12:00 PM EDTAssociated Order(s): CYSTOSCOPY Post-Procedure Diagnose(s): Bladder carcinoma CYSTOSCOPY Date/Time: 02/08/2023 12:00 PM Performed by: Bessy Garcia MD Authorized by: Bessy Garcia MD The attending physician was present for the entire procedure. 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 Informed consent was obtained. Does this procedure require a [place] Protocol? Yes. [place] Protocol is required. Procedure: Procedure performed: cystoscopy The patient was placed supine with all pressure points well padded. Patient was prepped and draped in the usual sterile fashion with chlorhexidine. 10 mL of lidocaine 2% topical gel was inserted intourethra for local anesthesia. A penile clamp was not applied. The flexible cystoscope was lubricated and placed into the urethral tract under direct visualization. A 360 survey of the bladder was performed. The cystoscope was reflected and the bladder neck and the ureteral orifices were inspected. The findings are detailed below. The cystoscope was removed following any additional procedures documented below. Findings: The urinary meatus appeared normal. There was not a prominent median lobe. The lateral lobes were not obstructive in appearance. No tumors observed. No bladder fistula present. No foreign bodies observed. No stones found. No trabeculations were found. Both ureteral orifices were normal in size, shape and position with efflux of clearurine. The urethra was inspected. No foreign body(s) present in urethra. No urethral diverticulum observed. No urethral stricture found. Cystoscopy normal Other Cystoscopy Findings: Small right sided bladder diverticulum Post Procedure: Patient tolerated procedure with no immediate complications EBL: no blood loss Procedure Comments: No tumors. I would recommend systemic therapy for his metastatic bladder cancer that is involving the right inguinal lymph node. I specifically recommend cisplatin plus gemcitabine, which is stronglypreferred to carboplatin plus gemcitabine. At this point I would lean away from recommending surgical inguinal lymphadenectomy or cystectomy no matter the response to systemic therapy. Return to clinic p.r.n. and return to clinic in 6 months for surveillance cystoscopy documented [facility]06-01[facility] History and physical note* Kathryn Urban, COMMISSARY PRODUCTION SUPERVISOR-COUNSEL - 02/08/2023 10:00 AM EDT Images from the original note were not included. HPI 77 y.o. male presents for evaluation of bladder cancer. He initially presented with gross hematuria in 05/2021. CT A/P 06/16/2021 showed 3.8 cm mass within the bladder, bilateral enhancing inguinal LN's, subtle scattered peritoneal LN's, and mild strandingof the peritoneal fat planes. TURBT 06/24/[address] Ross showed a 6.5cm bladder tumor in the trigone area. UO's identified and involved. MMC instilled x 60 minutes. Pathology revealed LG, invasive papillary urothelial carcinoma with invasion into the lamina propria. TURBT 08/23/2021 showed posterior bladder wall was reddened and inflamed. A 4 x 5cm resection was done. Pathology revealing LG, noninvasive papillary urothelial carcinoma with no lamina propria or muscularis propria identified. He then completed BCG in 11/2021. He was then placed on surveillance cystoscopies nickie 3 months which were negative per patient. He recently presented to clinic in 11/2022 with a palpable right inguinal LN. CT A/P 11/29/2022 showed diffuse bladder wall thickening with prostatic enlargement/calcifications with evidence of indentation of the bladder base and evidence of a 2.4 cm x 1.4 cm lymph node in the right inguinal region. He underwent a core biopsy of right inguinal LN 12/05/2022. Pathology revealing metastatic non-small cell carcinoma with IHC profile compatible with urothelial primary with focal squamous differentiation. PET scan 12/18/2022 with increased uptake (SUV 5.2) in right inguinal region in a singular nodular focus. MRI brain performed on 12/20/2022 with no evidence of metastatic disease. [facility] path review 06/22/2021 - HG, invasive urothelial carcinoma with inverted growth pattern. Laminainvasion present. Muscle not present. [facility] path review LN biopsy - metastatic UC. He established care with Dr. Middleton 01/12/2023. Case presented to tumor board 01/30/2022 - cystoscopy recommended. Favor neoadjuvant chemo followed by consolidative concurrent chemo/radiation. He is taking Flomax and Finasteride for 20 years. He developed rinary retention after thyroidectomy(nodule). Pathology benign per patient. Denies GH, UTI, dysuria. Reports intermittent lower pelvic aching pain. No unintentional weight loss. Energy is fair. Appetite is good. Bowels are moving, no concerns. No follow-up with Dr. Middleton at this time. Dr. Dulce Bill ([facility]). 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 -Prior Abdominal Surgery: no -Anticoagulation: no -History of Bleeding with Prior Surgery: no Past Medical History: He has a past medical history of Arthritis (09/10/89), Asthma (09/10/2009), Depression, Diabetes mellitus (? 1999), Hypothyroidism, and Urothelial carcinoma. Past Surgical History: He has a past surgical history that includes thyroidectomy. Medications: He has a current medication list which includes the following prescription(s): ALBUTEROL IN, atorvastatin, finasteride, levothyroxine, sertraline, sildenafil citrate, and tamsulosin hcl. Allergies: He is allergic to atrovent nasal spray [ipratropium] and metformin. Social History He reports that he quit smoking about 39 years ago. His smoking use included cigarettes and cigars.He started smoking about 59 years ago. He has never used smokeless tobacco. He reports current alcohol use of about 1.0 standard drink per week. He reports that he does not use drugs. Family History: He family history includes Cancer- Other in his paternal grandfather; Colorectal Cancer in his maternal grandmother and mother; Heart Disease - Other in his father; Heart Failure in his father; LipidDisorder in his father; Mental Illness in his mother. Review of Systems Constitutional: Negative for fever, chills, weight loss, weight gain and malaise/fatigue. Cardiovascular: Negative for chest pain. Respiratory: Negative for shortness of breath. Gastrointestinal: Negative for nausea, abdominal pain, diarrhea, constipation. Genitourinary: see HPI Musculoskeletal: Negative for back pain and joint pain. Physical Exam BP 113/67 Pulse 75 Temp 97.9 F (36.6 C) Resp 16 Ht 1.778 m (5' 10) Wt 91.1 kg (200 lb 14.4 oz) SpO2 93% BMI 28.83 kg/m Smoking Status Former Constitutional: NAD, WDWN. HEENT: NCAT. Conjunctivae normal. MMM. Pulmonary/Chest: Respirations are even and non-labored bilaterally. Abdominal: Soft. No distension, tenderness, masses or guarding. No CVA tenderness. Extremities: DEON x 4, Warm. No clubbing. No cyanosis. Skin: Cuney, warm and dry. No rashes noted. Diagnostic Tests No results found for: LEUKOCESTUR, NITRITE, PROTEIN, UPH, BLOOD, SPECIFICGRAV, KETONES, GLUCOSE No results found for: CREATSERUM Radiographic Studies MRI Brain (12/20/2022) PET (12/18/2022) CT AP w/wo (11/29/2022) Procedure Notes TURBT (08/19/2021) TURBT (06/22/2021) Pathology: Right groin LN biopsy (12/05/2022) TURBT (08/19/2021) TURBT (06/22/2021) Plan - Cystoscopy today Associated attestation - Bessy Garcia MD - 02/08/2023 11:43 AM EDT I have independently interviewed and examined the patient and agree with the history, findings, andassessment as documented by Kathryn Urban N.P., below. I discussed the case with Kathryn Urban N.P. I have edited the document as appropriate. In addition: Debo Hull is a 77 y.o. male who presents in consultation for regionally metastatic bladder cancer. I reviewed images independently from the December 18 PET-CT scan. I do not detect any radiologically obvious bladder tumors nor do I detect any pelvic lymphadenopathy. I do see the right inguinal lymph node that was biopsy proven metastatic urothelial carcinoma. 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 We did have a conversation about the uncertainty associated with consolidative local therapy for metastatic bladder cancer. I indicated that the local therapy may take the form of radiation therapy or surgery. We talked about the retrospective evidence that exist that does and does not inform this question. We discussed that the choice of chemotherapy would preferably be cisplatin plus gemcitabine rather than carboplatin plusgemcitabine. We will perform flexible cystoscopy today. I indicated that the risks of cystoscopy are relatively low with respect to bladder infection or injury. The results of the cystoscopy will determine if we need to go to the operating room for cystoscopy and TURBT under anesthesia. We will also pinned further decision-making depending on response to systemic therapy. The patient and his wifeasked a number of insightful questions all of which were answered to their satisfaction. [facility] Work Phone: 1(698) 784-521006-01-2023 History and physical note* Bessy Garcia MD - 02/08/2023 10:00 AM EDT Coding review Consult level 4 and flexible cystoscopy same day [facility] Work Phone: 1([phone]) 421-299606-01-2023 History and physical note* Kathryn Urban APRN-COUNSEL - 02/08/2023 10:00 AM EDT Images from the original note were not included. HPI 77 y.o. male presents for evaluation of bladder cancer. He initially presented with gross hematuria in 05/2021. CT A/P 06/16/2021 showed 3.8 cm mass within the bladder, bilateral enhancing inguinal LN's, subtle scattered peritoneal LN's, and mild strandingof the peritoneal fat planes. TURBT 06/24/[address] Ross showed a 6.5cm bladder tumor in the trigone area. UO's identified and involved. MMC instilled x 60 minutes. Pathology revealed LG, invasive papillary urothelial carcinoma with invasion into the lamina propria. TURBT 08/23/2021 showed posterior bladder wall was reddened and inflamed. A 4 x 5cm resection was done. Pathology revealing LG, noninvasive papillary urothelial carcinoma with no lamina propria or muscularis propria identified. He then completed BCG in 11/2021. He was then placed on surveillance cystoscopies nickie 3 months which were negative per patient. He recently presented to clinic in 11/2022 with a palpable right inguinal LN. CT A/P 11/29/2022 showed diffuse bladder wall thickening with prostatic enlargement/calcifications with evidence of indentation of the bladder base and evidence of a 2.4 cm x 1.4 cm lymph node in the right inguinal region. He underwent a core biopsy of right inguinal LN 12/05/2022. Pathology revealing metastatic non-small cell carcinoma with IHC profile compatible with urothelial primary with focal squamous differentiation. PET scan 12/18/2022 with increased uptake (SUV 5.2) in right inguinal region in a singular nodular focus. MRI brain performed on 12/20/2022 with no evidence of metastatic disease. [facility] path review 06/22/2021 - HG, invasive urothelial carcinoma with inverted growth pattern. Laminainvasion present. Muscle not present. [facility] path review LN biopsy - metastatic UC. He established care with Dr. Middleton 01/12/2023. Case presented to tumor board 01/30/2022 - cystoscopy recommended. Favor neoadjuvant chemo followed by consolidative concurrent chemo/radiation. He is taking Flomax and Finasteride for 20 years. He developed rinary retention after thyroidectomy(nodule). Pathology benign per patient. Denies GH, UTI, dysuria. Reports intermittent lower pelvic aching pain. No unintentional weight loss. Energy is fair. Appetite is good. Bowels are moving, no concerns. No follow-up with Dr. Middleton at this time. Dr. Dulce Bill ([facility]). 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 -Prior Abdominal Surgery: no -Anticoagulation: no -History of Bleeding with Prior Surgery: no Past Medical History: He has a past medical history of Arthritis (09/10/89), Asthma (09/10/2009), Depression, Diabetes mellitus (? 1999), Hypothyroidism, and Urothelial carcinoma. Past Surgical History: He has a past surgical history that includes thyroidectomy. Medications: He has a current medication list which includes the following prescription(s): ALBUTEROL IN, atorvastatin, finasteride, levothyroxine, sertraline, sildenafil citrate, and tamsulosin hcl. Allergies: He is allergic to atrovent nasal spray [ipratropium] and metformin. Social History He reports that he quit smoking about 39 years ago. His smoking use included cigarettes and cigars.He started smoking about 59 years ago. He has never used smokeless tobacco. He reports current alcohol use of about 1.0 standard drink per week. He reports that he does not use drugs. Family History: He family history includes Cancer- Other in his paternal grandfather; Colorectal Cancer in his maternal grandmother and mother; Heart Disease - Other in his father; Heart Failure in his father; LipidDisorder in his father; Mental Illness in his mother. Review of Systems Constitutional: Negative for fever, chills, weight loss, weight gain and malaise/fatigue. Cardiovascular: Negative for chest pain. Respiratory: Negative for shortness of breath. Gastrointestinal: Negative for nausea, abdominal pain, diarrhea, constipation. Genitourinary: see HPI Musculoskeletal: Negative for back pain and joint pain. Physical Exam BP 113/67 Pulse 75 Temp 97.9 F (36.6 C) Resp 16 Ht 1.778 m (5' 10) Wt 91.1 kg (200 lb 14.4 oz) SpO2 93% BMI 28.83 kg/m Smoking Status Former Constitutional: NAD, WDWN. HEENT: NCAT. Conjunctivae normal. MMM. Pulmonary/Chest: Respirations are even and non-labored bilaterally. Abdominal: Soft. No distension, tenderness, masses or guarding. No CVA tenderness. Extremities: DEON x 4, Warm. No clubbing. No cyanosis. Skin: Cuney, warm and dry. No rashes noted. Diagnostic Tests No results found for: LEUKOCESTUR, NITRITE, PROTEIN, UPH, BLOOD, SPECIFICGRAV, KETONES, GLUCOSE No results found for: CREATSERUM Radiographic Studies MRI Brain (12/20/2022) PET (12/18/2022) CT AP w/wo (11/29/2022) Procedure Notes TURBT (08/19/2021) TURBT (06/22/2021) Pathology: Right groin LN biopsy (12/05/2022) TURBT (08/19/2021) TURBT (06/22/2021) Plan - Cystoscopy today Associated attestation - Bessy Garica MD - 02/08/2023 11:43 AM EDT I have independently interviewed and examined the patient and agree with the history, findings, andassessment as documented by Kathryn Urban N.P., below. I discussed the case with Kathryn Urban N.P. I have edited the document as appropriate. In addition: Debo Hull is a 77 y.o. male who presents in consultation for regionally metastatic bladder cancer. I reviewed images independently from the December 18 PET-CT scan. I do not detect any radiologically obvious bladder tumors nor do I detect any pelvic lymphadenopathy. I do see the right inguinal lymph node that was biopsy proven metastatic urothelial carcinoma. 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 We did have a conversation about the uncertainty associated with consolidative local therapy for metastatic bladder cancer. I indicated that the local therapy may take the form of radiation therapy or surgery. We talked about the retrospective evidence that exist that does and does not inform this question. We discussed that the choice of chemotherapy would preferably be cisplatin plus gemcitabine rather than carboplatin plusgemcitabine. We will perform flexible cystoscopy today. I indicated that the risks of cystoscopy are relatively low with respect to bladder infection or injury. The results of the cystoscopy will determine if we need to go to the operating room for cystoscopy and TURBT under anesthesia. We will also pinned further decision-making depending on response to systemic therapy. The patient and his wifeasked a number of insightful questions all of which were answered to their satisfaction. * Bessy Garcia MD - 02/08/2023 10:00 AM EDT Coding review Consult level 4 and flexible cystoscopy same day documented in this encounterD[facility] History of Present illness Narrative* Pamela Middleton MD, PhD - 01/12/2023 3:00 PM EDT Attending addendum: I have seen the patient in conjunction with our Nurse Practitioner, MANUEL Martin, and formulated the medical decision making, as above. I personally interviewed and examined the patient. All review of systems was completed and is negative unless otherwise stated. I have reviewed allthe available medical records, pertinent laboratory and diagnostic tests today. I have personally reviewed all the available radiographic imaging studies. I edited the above clinic note entirely and it reflects the details of my interview, exam, and medical decision making. I provided substantial proportion of the care (>50%). Briefly, Debo Hull is a 77 y.o. male with suspected oligo-metastatic non- small cell carcinoma to R inguinal LN with squam differentiation, possible urothelial primary here for a second opinion. pmhx of hypothyroidism s/p thyroidectomy, low grade T1 urothelial carcinoma of the bladder fmhx of maternal grandmother with colon cancer -PET Scan reviewed; shows increased uptake in a R inguinal LN without other PET avid lesions -the metastatic non-small cell carcinoma was diagnosed through a R inguinal LN biopsy; -It is unusual for a low grade T1 lesion to metastasize to R inguinal LN without any pelvic arabella involvement - I recommend [facility] review namrata - On the exam, I could not appreciate any le skin lesion or penile lesion. -Telehealth visit to discuss [facility] Path review 60 minutes spent on this visit. Documented by Raffy, Rajendra Shelley, for Dr. Middleton on 01/12/2023 at 3:31 PM All medical record entries made by the Alexsandraibalexsandra were at my direction and personally dictated by me, Pamela Middleton MD, PhD. I have reviewed and edited the chart and agree that the record accurately reflects my personal performance of the history, physical exam, assessment and plan. I have also personally directed, reviewed, and agree with the discharge instructions. Pamela Middleton MD, PhD * Payton Berkowitz, COMMISSARY PRODUCTION SUPERVISOR-COUNSEL - 01/12/2023 3:00 PM EDT Images from the original note were not included. Reason for visit: Debo Hull is a 77 y.o. male who presents to our Medical Oncology Clinic for evaluation and treatment for his urothelial carcinoma. Referred By: Dr. Robby Benitez Molecular Testing: None HPI: Mr. Hull initially presented with gross hematuria in 05/2021. CT A/P performed on 06/16/2021 showed 3.8 cm mass within the bladder suggestive of malignancy with bilateral enhancing inguinal LN's, subtle scattered peritoneal LN's, and mild stranding of the peritoneal fat planes. He underwent a TURBT on 06/24/2021 with pathology revealing invasive low grade papillary urothelial carcinoma with invasion into the lamina propria. He then received intravesical mitomycin C. Repeat TURBT performed on 08/23/2021 with pathology revealing noninvasive papillary urothelial carcinoma with no lamina propria or muscularis propria identified. He then completed BCG in 11/2021. He was then placed on surveilla nce. He then presented to clinic in 11/2022 with a palpable right inguinal LN. CT A/P performed on 11/29/2022 showed diffuse bladder wall thickening with prostatic enlargement/calcifications with evidence of indentation of the bladder base and evidence of a 2.4 cm x 1.4 cm lymph node in the right inguinal region. On 12/05/2022 he underwent a core biopsy of right inguinal LN with pathology revealing metastatic non-small cell carcinoma with IHC profile compatible with urothelial primary with focal squamous differentiation. He underwent a PET scan on 12/18/2022 with increased uptake (SUV 5.2) inright inguinal region in a singular nodular focus. MRI brain performed on 12/20/2022 with no evidence of metastatic disease. Mr. Hull presents today with his for a second opinion. He reports energy is good and he remains active. He denies having any fevers, chills, dysuria, or hematuria. He denies having any pain. He denies having any neuropathy. 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 [facility] History: 12/20/2022 MRI Brain: No evidence of metastatic disease. 12/18/2022 PET: increased uptake (SUV 5.2) in right inguinal region in a singular nodular focus. 12/05/2022 LN Bx: metastatic non-small cell carcinoma with IHC profile compatible with urothelial primary with focal squamous differentiation. differentiation.11/29/2022 CT A/P: right inguinal LN. 11/2022 Presented with palpable right inguinal LN. Cysto performed with no evidence of disease. 11/23/2021 Completed BCG 08/23/2021 TURBT: noninvasive papillary urothelial carcinoma with no lamina propria or muscularis propria identified. Fall 2020 Intravesical mitomycin C. 06/24/2021 TURBT: invasive low grade papillary urothelial carcinoma with invasion into the lamina propria 06/16/2021 CT A/P: 3.8 cm mass within the bladder, bilateral enhancing inguinal LN's, subtle scattered peritoneal LN's, and mild stranding of the peritoneal fat planes. 05/2021 Presented with gross hematuria Past Medical History: He has a past medical history of Arthritis (09/10/89), Asthma (09/10/2009), Depression, Hypothyroidism,and Urothelial carcinoma. Past Surgical History: He has a past surgical history that includes thyroidectomy. Social History: He reports that he quit smoking about 39 years ago. His smoking use included cigarettes and cigars.He started smoking about 59 years ago. He does not have any smokeless tobacco history on file. He reports current alcohol use of about 1.0 standard drink per week. He reports that he does not currently use drugs after having used the following drugs: Marijuana. Family History: He family history includes Colorectal Cancer (age of onset: 65) in his maternal grandmother; Heart Failure in his father; Mental Illness in his mother. Family Status Relation Name Status Mother Latasha Hull (Not Specified) Father Lena Hull (Not Specified) MGSri Dietrich (Not Specified) Current Medications: Current Outpatient Medications Medication Sig ALBUTEROL IN Inhale. Atorvastatin 40 MG tablet Take 1 tablet by mouth daily. Finasteride 5 MG tablet Take 1 tablet by mouth daily. Levothyroxine 25 MCG tablet Take 1 tablet by mouth every morning before breakfast. Sertraline 50 MG tablet Take 1 tablet by mouth daily. sildenafil citrate 50 MG tablet Take 2 tablets by mouth daily as needed. Tamsulosin HCl 0.4 MG capsule Take 1 capsule by mouth daily. Allergies: Atrovent nasal spray [ipratropium] and Metformin Review of Systems Constitutional: No fevers or chills. Denies severe fatigue. Active. Skin: Negative for rash, itching and skin lesions. HENT: + tinnitus Eyes: No eye pain. No diplopia. Cardiovascular: Negative for chest pain, dyspnea on exertion, palpitations, orthopnea. Respiratory: Negative for cough, hemoptysis and sputum production. Is not experiencing shortness ofbreath or wheezing. Gastrointestinal: Negative for heartburn, nausea, vomiting, abdominal pain, diarrhea, constipation,blood in stool, melena and trouble swallowing. Weight stable. Genitourinary: Negative for dysuria and hematuria. Musculoskeletal: Negative for myalgias, neck pain, back pain. Extremities: Negative for leg pain, leg swelling. Neurological: Negative for dizziness, sensory change, focal weakness, loss of consciousness and headaches. Psychiatric: Negative for substance abuse. + history of depression, well controlled on Zoloft. Lymph/Heme: Negative for easily bruises / bleeds. + palpable right inguinal LN Physical Examination height is 1.778 m (5' 10) and weight is 92.2 kg (203 lb 3.2 oz). His oral temperature is 97.5 F (36.4 C). His blood pressure is 122/66 and his pulse is 82. His respiration is 16 and oxygen saturation is 94%. General Appearance: Alert and oriented x3, in no acute distress. ECOG PS: 0 HEENT: Head atraumatic, normocephalic. Neck: Supple, no thyromegaly, no lymphadenopathy. Lungs: Clear to auscultation bilaterally. No wheezes, rales or rhonchi. Normal respiratory effort. Cardiac: Normal S1, S2 . Rate and rhythm regular. No murmur, gallop or rub. GI: Abdomen is soft, nontender, nondistended, positive bowel sounds. : No CVA tenderness. Extremities: No cyanosis, clubbing or edema. Extremities are atraumatic. Neuro: CN 2-12 grossly intact. Lymph: No cervical or supraclavicular adenopathy. Musculoskeletal: No tenderness with palpation of ribs or vertebrae. No joint inflammation or swelling. Psych: Pleasant affect. No sign of agitation . Skin: No rash, bruising or petechiae. No skin nodules. Diagnostic Tests: Please refer to HPI. Labs: No results found for: WBC, GRNLOCTYABS, HGB, HCT, MCV, PLATELET No results found for: SBANS No results found for: SODIUM, POTASSIUM, CHLORIDE, CO2, BUN, CREATSERUM, GFR, GLUCOSE, CALCIUM, BILITOTAL, BILIDIRECT, TP, ALBUMIN, ALKPHOS, ALT, AST, LDH No results found for: HCGQUANT, AFP, PSA, TESTOSTERONE No results found for: AFPTMRMKR Pathology: LN Biopsy 12/05/2022: TURBT 08/23/2021: TURBT 06/24/2021: Radiology: MRI Brain 12/20/2022: IMPRESSION: 1. Moderate chronic changes of the brain, as described above. 2. There are no focal brain parenchymal lesions or abnormally enhancing lesions. No vasogenic edema or mass effect is seen. There is no abnormal thickening or enhancement of meninges or dura or skull. PET Scan 12/18/2022: IMPRESSION: 1. ABNORMAL EXAMINATION INDICATIVE OF MALIGNANT-VIABLE NEOPLASM. 2. Increased radiopharmaceutical concentration defined in the right inguinal region fulfills quantitative criteria for neoplasia. 3. Enhanced tracer uptake noted in the region of the base of the prostate gland does not fulfill quantitative criteria for malignant transformation. CT A/P 06/16/2021: Assessment and Plan: Urothelial Carcinoma: presented with gross hematuria in 05/2021. TURBT on 06/24/2021 with pathologyrevealing invasive low grade papillary urothelial carcinoma with invasion into the lamina propria. He then received intravesical mitomycin C. Repeat TURBT performed on 08/23/2021 with pathology revealing noninvasive papillary urothelial carcinoma with no lamina propria or muscularis propria identified. He then completed BCG in 11/2021. He was then placed on surveillance. Presented to clinic in 11/2022 with a palpable right inguinal LN. CT A/P performed on 11/29/2022 showed diffuse bladder wall thickening with prostatic enlargement/calcifications with evidence of indentation of the bladder base and evidence of a 2.4 cm x 1.4 cm lymph node in the right inguinal region. On 12/05/2022 he underwent a core biopsy of right inguinal LN with pathology revealing metastatic non-small cell carcinoma with IHC profile compatible with urothelial primary with focal squamous differentiation. - He follows with Dr. Benitez locally. - Requested outside pathology slides from initial TURBT (06/2021) and most recent LN biopsy (11/2022) be reviewed at [facility]. - Plan for televisit in ~2 weeks to discuss path review. MANUEL Martin documented in [facility]23 Miscellaneous Notes* Telephone Encounter - Bharati Jasmine LPN - 10/03/2022 7:55 AM EST Patient has been identified by name and date of : Yes, Provider Dr. Rebollar Date 10/03/22 Time7:56 am Patient phones for refill(s): Requested Prescriptions Pending Prescriptions Disp Refills Lancets lancets 100 Each 11 Sig: Test blood sugar(s) once daily an as needed. Dx: controlled type 2 diabetes without complication. Insulin: no blood sugar diagnostic (BLOOD GLUCOSE TEST) test strip 100 Strip 3 Sig: Test blood sugar(s) once daily and as needed. Dx: controlled type 2 diabetes without complication. Insulin: no Date of last office visit in primary care: 06/15/22 next apt 02/06/23 Last 2 Encounter Wt Readings: Date: Wt: 07/03/2022 93.2 kg (205 lb 6.4 oz) 06/15/2022 94.3 kg (208 lb) Previous labs/tests for medication: Diabetes: Hemoglobin A1C (%) Date Value 05/24/2022 7.8 12/07/2021 8.4 06/01/2021 7.5 09/27/2020 7.1 Thank you. Bharati Jasmine LPN documented in this encounterOhio[facility] History of Present illness Narrative* SRAVAN Roper - 07/03/2022 11:40 AM EDT PULM FUNCTION SMARTBLOCK: Provider: Angely Clements APRN.THREAD SPINNER Assisting Tech: SRAVAN Roper Spirometry w/BD: 1 documented in this encounterOhio[facility]10-06-2022 History of Present illness Narrative* Angely Clements APRN.THREAD SPINNER - 06/15/2022 8:57 AM EDT Subjective HPI Debo Hull is a 77 year old male. 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 Weight stable. Active. Adhering to diet. Notes walking 3 miles daily. DIABETES MELLITUS: He is following DM diet. Exercising routinely. Not currently taking medication. He is without report of excessive thirst or increased frequency of urination, chest pain or dyspnea , numbness, tingling or pain in extremities, new or unusual visual symptoms, low sugar/hypoglycemic reactions, weight loss/gain, lightheadedness/dizziness and bowel changes/loose stools. Patient's last HgA1C was Hemoglobin A1C (%) Date Value 05/24/2022 7.8 12/07/2021 8.4 06/01/2021 7.5 09/27/2020 7.1 Hypothyroidism. He is doing well on his current dose of Synthroid. TSH Date Value 05/24/2022 0.643 mIU/L 12/07/2021 0.500 mIU/L 06/01/2021 1.610 uU/mL 03/29/2020 0.425 uU/mL Hyperlipidemia. Taking atorvastatin. No AE voiced. His most recent lipid panels are: Cholesterol, Total (mg/dL) Date Value 05/24/2022 155 12/07/2021 142 06/01/2021 163 03/10/2020 161 HDL Cholesterol (mg/dL) Date Value 05/24/2022 35 12/07/2021 32 06/01/2021 32 03/10/2020 34 LDL Cholesterol (mg/dL) Date Value 05/24/2022 80 12/07/2021 70 06/01/2021 77 03/10/2020 80 Triglyceride (mg/dL) Date Value 05/24/2022 199 12/07/2021 200 06/01/2021 271 03/10/2020 237 ED: stable, helped with medication. Follows with Dr Cantu. Notes was to follow up with [place] provider regarding a research program but was not eligible due to doing too well; not qualified. Last 14 Encounter BP Readings: Date: BP: 06/15/2022 100/52 12/13/2021 112/70 06/10/2021 102/62 06/07/2021 118/68 03/29/2020 118/64 09/16/2019 92/70 08/04/2019 112/70 05/20/2019 94/60 02/17/2019 112/72 01/10/2019 110/70 08/19/2018 92/68 02/11/2018 116/78 08/14/2017 102/64 01/09/2017 91/61[ states BP usually runs 90's/60's[ Hypothyroidism. He is doing well on his current dose of Synthroid. Increased sleepiness . Without complaint of constipation, diarrhea, LE edema, palpitations, tremors, weight gain, weight loss, hair loss, dry skin, cold intolerance or heat intolerance. TSH Date Value 05/24/2022 0.643 mIU/L 12/07/2021 0.500 mIU/L 06/01/2021 1.610 uU/mL 03/29/2020 0.425 uU/mL ) Review of Systems Constitutional: Negative. Respiratory: Negative. Cardiovascular: Negative. Endocrine: Negative. Objective BP 100/52 Pulse 92 Resp 20 Wt 94.3 kg (208 lb) SpO2 98% BMI 29.84 kg/m Physical Exam Vitals and nursing note reviewed. Constitutional: General: He is not in acute distress. Appearance: Normal appearance. He is well-developed. He is not ill-appearing or diaphoretic. HENT: Head: Normocephalic and atraumatic. Eyes: General: No scleral icterus. Right eye: No discharge. Left eye: No discharge. Conjunctiva/sclera: Conjunctivae normal. Cardiovascular: Rate and Rhythm: Normal rate and regular rhythm. Pulses: Dorsalis pedis pulses are 2+ on the right side and 2+ on the left side. Heart sounds: Normal heart sounds. Pulmonary: Effort: Pulmonary effort is normal. Breath sounds: Normal breath sounds. Abdominal: General: Bowel sounds are normal. Palpations: Abdomen is soft. Musculoskeletal: Right lower leg: No edema. Left lower leg: No edema. Feet: Right foot: Protective Sensation: 10 sites tested. 10 sites sensed. Skin integrity: Skin integrity normal. Left foot: Protective Sensation: 10 sites tested. 10 sites sensed. Skin integrity: Skin integrity normal. Skin: General: Skin is warm and dry. Neurological: General: No focal deficit present. Mental Status: He is alert and oriented to person, place, and time. ALLERGIES Allergen Reactions Metformin Diarrhea, GI Upset Tried 2 doses and had adverse effects each time Seasonal Allergies Cough hayfever Current Outpatient Medications Medication Sig levothyroxine (SYNTHROID) 125 mcg tablet Take 1 tablet by mouth once daily. sertraline (ZOLOFT) 50 mg tablet Take 1 tablet by mouth once daily. tamsulosin (FLOMAX) 0.4 mg Take 1 capsule by mouth once daily. atorvastatin (LIPITOR) 20 mg tablet Take 1 tablet by mouth once daily. Please note dose change. Do not cut tablet in half. finasteride (PROSCAR) 5 mg tablet Take 1 tablet by mouth once daily. albuterol HFA (VENTOLIN HFA) 90 mcg/actuation inhaler Inhale 2 Puffs as instructed every 4 hours asneeded for wheezing/shortness of breath. Patient requests Relion brand 60 puffs for $9 sildenafil (VIAGRA) 100 mg tablet Take half to whole pill as directed prior to intercourse. blood sugar diagnostic (BLOOD GLUCOSE TEST) test strip Test blood sugar(s) once daily and as needed. Dx: controlled type 2 diabetes without complication. Insulin: no Lancets lancets Test blood sugar(s) once daily an as needed. Dx: controlled type 2 diabetes withoutcomplication. Insulin: no No current facility-administered medications for this visit. PAST MEDICAL HISTORY Diagnosis Date Actinic skin damage 02/18/2012 BPH w urinary obs/LUTS 07/05/2011 Cough variant asthma 12/10/2013 Depression Diverticulosis of colon (without mention of hemorrhage) Family history of malignant neoplasm of gastrointestinal tract family history of colon cancer; due for colonoscopy 2016 (last done 2011 and 2005) Frozen shoulder Dr. Slaughter managing; started around Jun 2013 Hypothyroidism Internal hemorrhoids without mention of complication Multinodular goiter 05/21/2012 PURE HYPERCHOLESTEROLEM 02/13/2006 Shingles ~2001 reports that he has never smoked. He has been exposed to tobacco smoke. He has never used smokelesstobacco. He reports current alcohol use. He reports that he does not use drugs. Component Latest Ref Rng & Units 12/07/2021 05/24/2022 Protein, Total 6.3 - 8.0 g/dL 7.2 7.1 Albumin 3.9 - 4.9 g/dL 4.5 4.7 Calcium 8.5 - 10.2 mg/dL 9.6 9.8 Bilirubin, Total 0.2 - 1.3 mg/dL 0.6 0.6 Alkaline Phosphatase 38 - 113 U/L 72 78 AST 14 - 40 U/L 24 23 ALT 10 - 54 U/L 25 25 Glucose 74 - 99 mg/dL 150 (H) 151 (H) BUN 9 - 24 mg/dL 15 14 Creatinine 0.73 - 1.22 mg/dL 0.98 0.93 Sodium 136 - 144 mmol/L 136 139 Potassium 3.7 - 5.1 mmol/L 4.5 5.0 Chloride 97 - 105 mmol/L 103 103 CO2 22 - 30 mmol/L 23 26 Anion Gap 9 - 18 mmol/L 10 10 eGFR >=60 mL/min/1.73m 79 84 WBC 3.70 - 11.00 k/uL 6.04 6.33 RBC 4.20 - 6.00 m/uL 4.71 4.93 Hemoglobin 13.0 - 17.0 g/dL 13.9 14.9 Hematocrit 39.0 - 51.0 % 42.8 47.0 MCV 80.0 - 100.0 fL 90.9 95.3 MCH 26.0 - 34.0 pg 29.5 30.2 MCHC 30.5 - 36.0 g/dL 32.5 31.7 RDW-CV 11.5 - 15.0 % 13.5 13.6 Platelet Count 150 - 400 k/uL 143 (L) 146 (L) MPV 9.0 - 12.7 fL 11.5 11.9 Absolute nRBC <0.01 k/uL <0.01 <0.01 Cholesterol, Total <200 mg/dL 142 155 Triglyceride <150 mg/dL 200 (H) 199 (H) HDL Cholesterol >39 mg/dL 32 (L) 35 (L) Non HDL Cholesterol <130 mg/dL 110 120 Fasting Time hrs 14 12 VLDL Cholesterol <30 mg/dL 40 (H) 40 (H) TC:HDL Ratio <5.10 4.44 4.43 LDL Cholesterol <100 mg/dL 70 80 LDL:HDL Ratio <2.54 2.19 2.29 Creatinine, Ur Random (UCRR) 20.0 - 300.0 mg/dL 104.2 Albumin, Urine Random mg/L <12.0 Albumin/Creat Ratio <30 mg/g <12 Hemoglobin A1C 4.3 - 5.6 % 8.4 (H) 7.8 (H) Estimated Average Glucose mg/dL 194 177 TSH 0.270 - 4.200 mIU/L 0.500 0.643 Free T4 0.9 - 1.7 ng/dL 1.6 1.4 Free T3 2.3 - 4.1 pg/mL 3.0 Assessment and Plan 1. Cough variant asthma - ICD9: 493.82, ICD10: J45.991 (primary diagnosis) - Continue current meds - Avoidance of triggers recommended - SPIROMETRY - BASELINE AND POST DILATOR - COMP METABOLIC PANEL - CBC + DIFF 2. Pure hypercholesterolemia - ICD9: 272.0, ICD10: E78.00 Stable, currently controlled, continue to monitor. Recommend a plant based diet such as Mediterranean diet with plenty of vegetables, fruits,whole grains, fish, chicken, turkey or plant proteins and routine exercise such as walking 3. Controlled type 2 diabetes mellitus without complication, without long-term current use of insulin (HCC) - ICD9: 250.00, ICD10: E11.9 Improved control Stable, currently controlled, continue to monitor. - HGB A1C - COMP METABOLIC PANEL - LIPID PANEL BASIC - ALBUMIN/CREAT RATIO RND UR 4. Thrombocytopenia (HCC) - ICD9: 287.5, ICD10: D69.6 Stable, currently controlled, continue to monitor. 5. Mixed hyperlipidemia - ICD9: 272.2, ICD10: E78.2 - LIPID PANEL BASIC 6. Benign prostatic hyperplasia without lower urinary tract symptoms - ICD9: 600.00, ICD10: N40.0 Stable, currently controlled, continue to monitor. Followed by urologist, Dr Vidal - PSA/PROSTSPECAG SCRN 7. Acquired hypothyroidism - ICD9: 244.9, ICD10: E03.9 Stable, currently controlled, continue to monitor. - COMP METABOLIC PANEL - TSH BLD - T4 FREE/FREE THYROX - T3 FREE BLD 8. Encounter for screening for malignant neoplasm of prostate - ICD9: V76.44, ICD10: Z12.5 - PSA/PROSTSPECAG SCRN Six-month follow-up with PCP with labs Angely Clements APRN.THREAD SPINNER Medical Decision Making: Problems: Moderate: 2+ stable chronic illnesses Data: Unique test(s) ordered: 3+ Risk: Moderate: Drug management Medical Decision Making Level: 4 - Moderate documented in this encounterOhiohealth [facility]08-26-2022 Miscellaneous Notes* Telephone Encounter - Matteo Rebollar MD - 05/05/2022 6:36 PM EDT Okayed documented in this encounterOhiohealth [facility]08-26-2022 Miscellaneous Notes* Telephone Encounter - Matteo Rebollar MD - 05/05/2022 6:36 PM EDT Okayed documented in this encounterOhiohealth Mans[facility]05-31-2022 Miscellaneous Notes* Telephone Encounter - Matteo Rebollar MD - 02/07/2022 1:13 PM EDT The following approved medication requests have been transmitted electronically. Signed Prescriptions Disp Refills albuterol HFA (VENTOLIN HFA) 90 mcg/actuation inhaler 1 Each 2 Sig: Inhale 2 Puffs as instructed every 4 hours as needed for wheezing/shortness of breath. Patientrequests Relion brand 60 puffs for $9 BECCA: No Authorizing Provider: MATTEO REBOLLAR MD * Telephone Encounter - Stephanie Salgado Ma - 02/07/2022 11:27 AM EDT Last OV: 12/13/2021 Next OV: 06/15/2022 documented in this encounterOhiohealth Mansfield [facility]04-05-2022 History of Present illness Narrative* Matteo Rebollar MD - 12/13/2021 5:14 PM EDT This note was created using [employer]. Subjective Debo Hull is a 76 year old male. Patient presents with: F/U 6 months SUBJECTIVE: Debo Hull is a 76 year old year old gentleman here today for 6 month follow up appointment for review of medical conditions. No acute problems to address. Reviewed that in past HgA1C got up to 8. Doing well with treatments for cancer. Dr. Ross for follow up in February. Was not watching as well. In the past exercise was effective for getting sugars back down. Got HgA1C from 8.5 to 6 range in 4 months. Plans to keep up walking. 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 Noted skin lesion right side of nose--able tp get off but grew back. PAST MEDICAL HISTORY Diagnosis Date Actinic skin damage 02/18/2012 BPH w urinary obs/LUTS 07/05/2011 Cough variant asthma 12/10/2013 Depression Diverticulosis of colon (without mention of hemorrhage) Family history of malignant neoplasm of gastrointestinal tract family history of colon cancer; due for colonoscopy 2016 (last done 2011 and 2005) Frozen shoulder Dr. Slaughter managing; started around Jun 2013 Hypothyroidism Internal hemorrhoids without mention of complication Multinodular goiter 05/21/2012 PURE HYPERCHOLESTEROLEM 02/13/2006 Shingles ~2001 Current Outpatient Medications Medication Sig sildenafil (VIAGRA) 100 mg tablet Take half to whole pill as directed prior to intercourse. finasteride (PROSCAR) 5 mg tablet Take 1 tablet by mouth once daily. levothyroxine (SYNTHROID) 125 mcg tablet Take 1 tablet by mouth once daily. sertraline (ZOLOFT) 50 mg tablet Take 1 tablet by mouth once daily. tamsulosin (FLOMAX) 0.4 mg Take 1 capsule by mouth once daily. atorvastatin (LIPITOR) 20 mg tablet Take 1 tablet by mouth once daily. Please note dose change. Do not cut tablet in half. albuterol HFA (VENTOLIN HFA) 90 mcg/actuation inhaler Inhale 2 Puffs as instructed every 4 hours asneeded for wheezing/shortness of breath. Patient requests Relion brand 60 puffs for $9 blood sugar diagnostic (BLOOD GLUCOSE TEST) test strip Test blood sugar(s) once daily and as needed. Dx: controlled type 2 diabetes without complication. Insulin: no Lancets lancets Test blood sugar(s) once daily an as needed. Dx: controlled type 2 diabetes withoutcomplication. Insulin: no No current facility-administered medications for this visit. Review of Systems Objective BP 112/70 Pulse 90 Wt 93.4 kg (206 lb) SpO2 95% BMI 29.56 kg/m Last 5 Encounter Wt Readings: Date: Wt: 12/13/2021 93.4 kg (206 lb) 08/12/2021 90.7 kg (200 lb) 06/10/2021 91.6 kg (202 lb) 06/07/2021 95.3 kg (210 lb) 03/29/2020 91.2 kg (201 lb) No waist measurement recorded Estimated body mass index is 29.56 kg/m as calculated from the following: Height as of 08/12/21: 177.8 cm (5' 10). Weight as of this encounter: 93.4 kg (206 lb). Last 5 Encounter BP Readings: Date: BP: 12/13/2021 112/70 06/10/2021 102/62 06/07/2021 118/68 03/29/2020 118/64 09/16/2019 92/70 Physical Exam Vitals reviewed. Constitutional: Appearance: Normal appearance. Eyes: Conjunctiva/sclera: Conjunctivae normal. Cardiovascular: Rate and Rhythm: Normal rate and regular rhythm. Heart sounds: Normal heart sounds. Pulmonary: Effort: Pulmonary effort is normal. Breath sounds: Normal breath sounds. Skin: General: Skin is warm and dry. Neurological: General: No focal deficit present. Mental Status: He is alert and oriented to person, place, and time. Psychiatric: Mood and Affect: Mood normal. Behavior: Behavior normal. Thought Content: Thought content normal. Judgment: Judgment normal. Feet:Shoes and socks removed, Are you having foot pain No, No deformities, ulcers, calluses, normaldistal pulses and sensitive to 10 gm monofilament Component Latest Ref Rng & Units 06/01/2021 12/07/2021 Protein, Total 6.3 - 8.0 g/dL 6.9 Albumin 3.9 - 4.9 g/dL 4.5 Calcium 8.5 - 10.2 mg/dL 9.5 Bilirubin, Total 0.2 - 1.3 mg/dL 0.4 Alkaline Phosphatase 38 - 113 U/L 75 AST 14 - 40 U/L 23 Glucose 74 - 99 mg/dL 129 (H) BUN 9 - 24 mg/dL 24 Creatinine 0.73 - 1.22 mg/dL 1.05 Sodium 136 - 144 mmol/L 139 Potassium 3.7 - 5.1 mmol/L 4.6 Chloride 97 - 105 mmol/L 104 CO2 22 - 30 mmol/L 23 Anion Gap 9 - 18 mmol/L 12 ALT 10 - 54 U/L 26 eGFR- >60 eGFR-All Other Races . >60 WBC 3.70 - 11.00 k/uL 7.05 RBC 4.20 - 6.00 m/uL 4.73 Hemoglobin 13.0 - 17.0 g/dL 14.7 Hematocrit 39.0 - 51.0 % 45.4 MCV 80.0 - 100.0 fL 96.0 MCH 26.0 - 34.0 pG 31.1 MCHC 30.5 - 36.0 g/dL 32.4 RDW-CV 11.5 - 15.0 % 13.3 Platelet Count 150 - 400 k/uL 136 (L) MPV 9.0 - 12.7 fL 12.8 (H) Absolute nRBC <0.01 k/uL <0.01 Cholesterol, Total <200 mg/dL 163 Triglyceride <150 mg/dL 271 (H) HDL Cholesterol >39 mg/dL 32 (L) LDL Cholesterol <100 mg/dL 77 Non HDL Cholesterol <130 mg/dL 131 (H) Fasting Time hrs 12 VLDL Cholesterol <30 mg/dL 54 (H) TC:HDL Ratio <5.10 5.09 LDL:HDL Ratio <2.54 2.41 Creatinine, Ur Random (UCRR) 20 - 300 mg/dL 106.5 Albumin, Urine Random mg/L 50.3 Albumin/Creat Ratio <30 mg/g 47 (H) Hemoglobin A1C 4.3 - 5.6 % 7.5 (H) 8.4 (H) Estimated Average Glucose mg/dL 169 194 TSH 0.270 - 4.200 uU/mL 1.610 Free T3 2.3 - 4.1 pg/mL 2.8 Free T4 0.9 - 1.7 ng/dL 1.5 Hemoglobin A1C (%) Date Value 12/07/2021 8.4 06/01/2021 7.5 09/27/2020 7.1 03/10/2020 6.6 05/03/2019 6.3 02/07/2019 8.5 Hemoglobin A1C (POCT) (%) Date Value 09/16/2019 6.0 Assessment and Plan ASSESSMENT/PLAN: 1. Controlled type 2 diabetes mellitus without complication, without long-term current use of insulin (HCC) - ICD9: 250.00, ICD10: E11.9 (primary diagnosis) worsening control with HgA1C up to 8 range - Needs to keep working on diet and exercise with lifestyle changes for effective weight loss as well as improve control of DM, and control of BP and lipids. - HGB A1C - COMP METABOLIC PANEL - ALBUMIN/CREAT RATIO RND UR 2. Mixed hyperlipidemia - ICD9: 272.2, ICD10: E78.2 - good control LDL and - suboptimal control HDL and TG though TG improved - Continue current medication. - Encouraged following a low fat, low cholesterol diet. - Discussed the benefits of regular aerobic exercise and weight loss. - Encouraged following a low carbohydrate, healthy oil intake diet. - LIPID PANEL BASIC 3. Acquired hypothyroidism - ICD9: 244.9, ICD10: E03.9 Clinically euthyroid. TSH fine. Continue to adjust dose of replacement as indicated based on symptoms and labs. Did note that TSH down to 0.500 - TSH BLD - T4 FREE/FREE THYROX 4. Encounter for long-term current use of medication - ICD9: V58.69, ICD10: Z79.899 - CBC - COMP METABOLIC PANEL Matteo Rebollar MD Medical Decision Making: Problems: Moderate: 2+ stable chronic illnesses Data: Unique test result(s) reviewed: 3+ Unique test(s) ordered: 3+ Risk: Moderate: Drug management Medical Decision Making Level: 4 - Moderate documented in this encounterOhiohealth Mans[facility]03-30-2022 Miscellaneous Notes* Telephone Encounter - Matteo Rebollar MD - 12/07/2021 11:03 PM EDT The following approved medication requests have been transmitted electronically. Signed Prescriptions Disp Refills sildenafil (VIAGRA) 100 mg tablet 9 tablet 3 Sig: Take half to whole pill as directed prior to intercourse. BECCA: No Authorizing Provider: MATTEO REBOLLAR MD * Telephone Encounter - Stephanie Salgado Ma - 12/07/2021 2:52 PM EDT See mychart message, unable to get through mail order. [facility] p[facility] for [facility] documented in this encounterOhio[facility]03-30-2022 Miscellaneous Notes* Telephone Encounter - Stephanie Salgado Ma - 12/07/2021 2:52 PM EDT Request pended in refill encounter. documented in this encounterOhiohealth Mansfield Hospital03-30-2022 History of Present illness Narrative* Matteo Rebollar MD - 12/07/2021 8:29 AM EDT In lab and needed orders documented in this encounterOhiohealth Mansfield Hospital03-24-2022 Miscellaneous Notes* Telephone Encounter - Bharati Jasmine LPN - 12/01/2021 8:03 AM EDT Patient has been identified by name and date of : Yes Patient phones for refill(s): Pending Prescriptions Disp Refills SILDENAFIL 100 MG TABLET 9 tablet 3 Sig: Take half to whole pill as directed prior to intercourse. BECCA: No Date of last office visit in primary care: 06/10/21 next apt 12/13/21 Last 2 Encounter Wt Readings: Date: Wt: 08/12/2021 90.7 kg (200 lb) 06/10/2021 91.6 kg (202 lb) Previous labs/tests for medication: Not applicable Please advise. Thank you. Bharati Jasmine LPN documented in this encounterOhiohealth Mans[facility]12-03-2021 NoteHNO ID: [id number] Author: Maribeth Cassidy, DO Service: ? Author Type: Physician Type: Progress Notes Filed: 08/12/2021 9:09 AM Note Text: ?? [facility] [place] [facility] LOCATION: [address] [place] [address] NEW CONSULT VISIT PATIENT INFO: Debo Hull 76 year old PCP: Matteo Rebollar MD Consultation requested by Dr. Skyler Ross and my final recommendations will be communicated back to the requesting physician by way of shared medical record or letter via US mail. Chief Complaint: Gross hematuria/bladder cancer HPI Had GH, in May, had cysto with Dr. PENNINGTON, - found bladder tumor. June 22 2021. HG T1 was found. He was going to get set up for BCG. Now with severe LUTS. CT scan done, bladder wall thickening. Repeat urine cytology - positive after TURBT. Scheduled for TURBT re-resection Aug [address] Ross. Here with . 1-Duration: 2020 2-Location: bladder 3-Severity: N/A 4-Quality: Not applicable 5-Context: N/A 6-Timing: N/A 7-Modifying factors: No treatment prior to referral 8-Associated signs AND symptoms: no additional symptoms No question data found. PATHOLOGY: N/A LAB: WBC (k/uL) Date Value 06/01/2021 7.05 RBC (m/uL) Date Value 06/01/2021 4.73 Hemoglobin (g/dL) Date Value 06/01/2021 14.7 Hematocrit (%) Date Value 06/01/2021 45.4 MCV (fL) Date Value 06/01/2021 96.0 MCH (pG) Date Value 06/01/2021 31.1 MCHC (g/dL) Date Value 06/01/2021 32.4 RDW-CV (%) Date Value 06/01/2021 13.3 Platelet Count (k/uL) Date Value 06/01/2021 136 (L) MPV (fL) Date Value 06/01/2021 12.8 (H) Creatinine Date Value Ref Range Status 06/01/2021 1.05 0.73 - 1.22 mg/dL Final 03/10/2020 0.92 0.73 - 1.22 mg/dL Final 05/03/2019 0.98 0.73 - 1.22 mg/dL Final 02/07/2019 0.98 0.73 - 1.22 mg/dL Final PSA (ng/mL) Date Value 05/12/2015 0.08 03/05/2013 0.13 12/21/2011 0.26 08/24/2008 0.63 URINE POC GLUCOSE UA (POCT) Negative 06/07/2021 BILIRUBIN UA (POCT) Small 06/07/2021 KETONE UA (POCT) Negative 06/07/2021 SPECIFIC GRAVITY UA (POCT) 1.015 06/07/2021 HEMOGLOBIN/BLOOD UA (POCT) Large 06/07/2021 PH UA (POCT) 5.5 06/07/2021 PROTEIN UA (POCT) >=300 06/07/2021 UROBILINOGEN UA (POCT) 0.2 06/07/2021 NITRITE UA (POCT) Negative 06/07/2021 LEUKOCYTES UA (POCT) Negative 06/07/2021 COLOR UA (POCT) Red 06/07/2021 CLARITY UA (POCT) Cloudy 06/07/2021 IMAGING: CT Scan: report scanned No imaging to review. ALLERGIES: ALLERGIES Allergen Reactions - Metformin Diarrhea, GI Upset Tried 2 doses and had adverse effects each time - Seasonal Allergies Cough hayfever MEDICATIONS: levothyroxine (SYNTHROID) 125 mcg tablet Take 1 tablet by mouth once daily. sertraline (ZOLOFT) 50 mg tablet Take 1 tablet by mouth once daily. tamsulosin (FLOMAX) 0.4 mg Take 1 capsule by mouth once daily. atorvastatin (LIPITOR) 20 mg tablet Take 1 tablet by mouth once daily. Please note dose change. Do not cut tablet in half. albuterol HFA (VENTOLIN HFA) 90 mcg/actuation inhaler Inhale 2 Puffs as instructed every 4 hours as needed for wheezing/shortness of breath. Patient requests Relion brand 60 puffs for $9 blood sugar diagnostic (BLOOD GLUCOSE TEST) test strip Test blood sugar(s) once daily and as needed. Dx: controlled type 2 diabetes without complication. Insulin: no sildenafil (VIAGRA) 100 mg tablet Take half to whole pill as directed prior to intercourse. Lancets lancets Test blood sugar(s) once daily an as needed. Dx: controlled type 2 diabetes without complication. Insulin: no finasteride (PROSCAR) 5 mg tablet Take 1 tablet by mouth once daily. Does the patient take any herbal medications?: No Medication list reviewed and reconciled with patient: Yes HISTORIES PAST MEDICAL HISTORY Diagnosis Date - Actinic skin damage 02/18/2012 - BPH w urinary obs/LUTS 07/05/2011 - Cough variant asthma 12/10/2013 - Depression - Diverticulosis of colon (without mention of hemorrhage) - Family history of malignant neoplasm of gastrointestinal tract family history of colon cancer; due for colonoscopy 2016 (last done 2011 and 2005) - Frozen shoulder Dr. Slaughter managing; started around Jun 2013 - Hypothyroidism - Internal hemorrhoids without mention of complication - Multinodular goiter 05/21/2012 - PURE HYPERCHOLESTEROLEM 02/13/2006 - Shingles ~2001 PAST SURGICAL HISTORY Procedure Laterality Date - COLONOSCOP W/ OR W/O BRSH SPEC 07/06/06 - COLONOSCOP W/ OR W/O BRSH SPEC 11/30/11 repeat 5 years - FNA WITH IMAGING 04/10/12 U/S FNA right thyroid nodule - INT REPAIR SCALP,OMAR,TRUNK <2.5CM 05-15-12 - REM LESIO TRUNK,ARM,LEG 1.1 -2.0CM 05-15-12 - REM LESION TRUNK,ARM, LEG <0.5 CM 04/10/12 Exc. left lower quadrant skin lesion - SKIN BX, 1 LESION - THYROIDECTOMY 05-15-12 FAMILY HISTORY Problem Relation Age of Onset - Colon Cancer Mother mid seventies - (more content not included)...[facility]05-03-2015 History of Past illness Narrative* Problem Noted Date Resolved Date Obesity (BMI 30.0-34.9) 01/10/2015 09/16/19 20 Atypical nevus 04/16/2012 06/11/2013 Urinary retention with incomplete bladder emptyi ng 08/21/2011 06/11/2013 Urinary retention 07/05/2011 06/11/2013 Impaired fasting glucose 03/24/2009 017 Overview: Glucose 121 in 08-17: pt lost about 8 pounds as of 03-18 Last Assessment & Plan: Current glucose 115. Has gained a few lbs. Very motivated to keep sugar down. Hypothyroidism 06/17/2015 Last Assessment & Plan: Feeling very well since levothyroxine dose increased 3 mos ago. documented as of this encounter (statuses as of 12/01/2021) [facility] of Past illness Narrative* Problem Noted Date Resolved Date Obesity (BMI 30.0-34.9) 01/10/2015 09/16/19 20 Atypical nevus 04/16/2012 06/11/2013 Urinary retention with incomplete bladder emptyi ng 08/21/2011 06/11/2013 Urinary retention 07/05/2011 06/11/2013 Impaired fasting glucose 03/24/2009 017 Overview: Glucose 121 in 08-17: pt lost about 8 pounds as of 03-18 Last Assessment & Plan: Current glucose 115. Has gained a few lbs. Very motivated to keep sugar down. Hypothyroidism 06/17/2015 Last Assessment & Plan: Feeling very well since levothyroxine dose increased 3 mos ago. documented as of this encounter (statuses as of 12/07/2021) [facility] of [facility] illness Narrative* Problem Noted Date Resolved Date Obesity (BMI 30.0-34.9) 01/10/2015 09/16/19 20 Atypical nevus 04/16/2012 06/11/2013 Urinary retention with incomplete bladder emptyi ng 08/21/2011 06/11/2013 Urinary retention 07/05/2011 06/11/2013 Impaired fasting glucose 03/24/2009 017 Overview: Glucose 121 in 08-17: pt lost about 8 pounds as of 03-18 Last Assessment & Plan: Current glucose 115. Has gained a few lbs. Very motivated to keep sugar down. Hypothyroidism 06/17/2015 Last Assessment & Plan: Feeling very well since levothyroxine dose increased 3 mos ago. documented as of this encounter (statuses as of 12/07/2021) [facility] Narrative* Problem Noted Date Resolved Date Obesity (BMI 30.0-34.9) 01/10/2015 09/16/19 20 Atypical nevus 04/16/2012 06/11/2013 Urinary retention with incomplete bladder emptyi ng 08/21/2011 06/11/2013 Urinary retention 07/05/2011 06/11/2013 Impaired fasting glucose 03/24/2009 017 Overview: Glucose 121 in 08-17: pt lost about 8 pounds as of 03-18 Last Assessment & Plan: Current glucose 115. Has gained a few lbs. Very motivated to keep sugar down. Hypothyroidism 06/17/2015 Last Assessment & Plan: Feeling very well since levothyroxine dose increased 3 mos ago. documented as of this encounter (statuses as of 01/02/2022) [facility] Narrative* Problem Noted Date Resolved Date Obesity (BMI 30.0-34.9) 01/10/2015 09/16/19 20 Atypical nevus 04/16/2012 06/11/2013 Urinary retention with incomplete bladder emptyi ng 08/21/2011 06/11/2013 Urinary retention 07/05/2011 06/11/2013 Impaired fasting glucose 03/24/2009 017 Overview: Glucose 121 in 08-17: pt lost about 8 pounds as of 03-18 Last Assessment & Plan: Current glucose 115. Has gained a few lbs. Very motivated to keep sugar down. Hypothyroidism 06/17/2015 Last Assessment & Plan: Feeling very well since levothyroxine dose increased 3 mos ago. documented as of this encounter (statuses as of 01/24/2022) [facility] Narrative* Problem Noted Date Resolved Date Obesity (BMI 30.0-34.9) 01/10/2015 09/16/19 20 Atypical nevus 04/16/2012 06/11/2013 Urinary retention with incomplete bladder emptyi ng 08/21/2011 06/11/2013 Urinary retention 07/05/2011 06/11/2013 Impaired fasting glucose 03/24/2009 017 Overview: Glucose 121 in 08-17: pt lost about 8 pounds as of 03-18 Last Assessment & Plan: Current glucose 115. Has gained a few lbs. Very motivated to keep sugar down. Hypothyroidism 06/17/2015 Last Assessment & Plan: Feeling very well since levothyroxine dose increased 3 mos ago. documented as of this encounter (statuses as of 02/07/2022) [facility] Narrative* Problem Noted Date Resolved Date Obesity (BMI 30.0-34.9) 01/10/2015 09/16/19 20 Atypical nevus 04/16/2012 06/11/2013 Urinary retention with incomplete bladder emptyi ng 08/21/2011 06/11/2013 Urinary retention 07/05/2011 06/11/2013 Impaired fasting glucose 03/24/2009 017 Overview: Glucose 121 in 08-17: pt lost about 8 pounds as of 03-18 Last Assessment & Plan: Current glucose 115. Has gained a few lbs. Very motivated to keep sugar down. Hypothyroidism 06/17/2015 Last Assessment & Plan: Feeling very well since levothyroxine dose increased 3 mos ago. documented as of this encounter (statuses as of 05/05/2022) [facility] Narrative* Problem Noted Date Resolved Date Obesity (BMI 30.0-34.9) 01/10/2015 09/16/19 20 Atypical nevus 04/16/2012 06/11/2013 Urinary retention with incomplete bladder emptyi ng 08/21/2011 06/11/2013 Urinary retention 07/05/2011 06/11/2013 Impaired fasting glucose 03/24/2009 017 Overview: Glucose 121 in 08-17: pt lost about 8 pounds as of 03-18 Last Assessment & Plan: Current glucose 115. Has gained a few lbs. Very motivated to keep sugar down. Hypothyroidism 06/17/2015 Last Assessment & Plan: Feeling very well since levothyroxine dose increased 3 mos ago. documented as of this encounter (statuses as of 05/05/2022) [facility] Narrative* Problem Noted Date Resolved Date Obesity (BMI 30.0-34.9) 01/10/2015 09/16/19 20 Atypical nevus 04/16/2012 06/11/2013 Urinary retention with incomplete bladder emptyi ng 08/21/2011 06/11/2013 Urinary retention 07/05/2011 06/11/2013 Impaired fasting glucose 03/24/2009 017 Overview: Glucose 121 in 08-17: pt lost about 8 pounds as of 03-18 Last Assessment & Plan: Current glucose 115. Has gained a few lbs. Very motivated to keep sugar down. Hypothyroidism 06/17/2015 Last Assessment & Plan: Feeling very well since levothyroxine dose increased 3 mos ago. documented as of this encounter (statuses as of 06/15/2022) [facility] Narrative* Problem Noted Date Resolved Date Obesity (BMI 30.0-34.9) 01/10/2015 09/16/19 20 Atypical nevus 04/16/2012 06/11/2013 Urinary retention with incomplete bladder emptyi ng 08/21/2011 06/11/2013 Urinary retention 07/05/2011 06/11/2013 Impaired fasting glucose 03/24/2009 017 Overview: Glucose 121 in 08-17: pt lost about 8 pounds as of 03-18 Last Assessment & Plan: Current glucose 115. Has gained a few lbs. Very motivated to keep sugar down. Hypothyroidism 06/17/2015 Last Assessment & Plan: Feeling very well since levothyroxine dose increased 3 mos ago. documented as of this encounter (statuses as of 07/03/2022) [facility] Narrative* Problem Noted Date Resolved Date Obesity (BMI 30.0-34.9) 01/10/2015 09/16/19 20 Atypical nevus 04/16/2012 06/11/2013 Urinary retention with incomplete bladder emptyi ng 08/21/2011 06/11/2013 Urinary retention 07/05/2011 06/11/2013 Impaired fasting glucose 03/24/2009 017 Overview: Glucose 121 in 08-17: pt lost about 8 pounds as of 03-18 Last Assessment & Plan: Current glucose 115. Has gained a few lbs. Very motivated to keep sugar down. Hypothyroidism 06/17/2015 Last Assessment & Plan: Feeling very well since levothyroxine dose increased 3 mos ago. documented as of this encounter (statuses as of 10/03/2022) [facility] Narrative* Problem Noted Date Resolved Date Obesity (BMI 30.0-34.9) 01/10/2015 09/16/19 20 Atypical nevus 04/16/2012 06/11/2013 Urinary retention with incomplete bladder emptyi ng 08/21/2011 06/11/2013 Urinary retention 07/05/2011 06/11/2013 Impaired fasting glucose 03/24/2009 017 Overview: Glucose 121 in 08-17: pt lost about 8 pounds as of 03-18 Last Assessment & Plan: Current glucose 115. Has gained a few lbs. Very motivated to keep sugar down. Hypothyroidism 06/17/2015 Last Assessment & Plan: Feeling very well since levothyroxine dose increased 3 mos ago. documented as of this encounter (statuses as of 02/21/2023) [facility] Narrative* Problem Noted Date Resolved Date Obesity (BMI 30.0-34.9) 01/10/2015 09/16/19 20 Atypical nevus 04/16/2012 06/11/2013 Urinary retention with incomplete bladder emptyi ng 08/21/2011 06/11/2013 Urinary retention 07/05/2011 06/11/2013 Impaired fasting glucose 03/24/2009 017 Overview: Glucose 121 in 08-17: pt lost about 8 pounds as of 03-18 Last Assessment & Plan: Current glucose 115. Has gained a few lbs. Very motivated to keep sugar down. Hypothyroidism 06/17/2015 Last Assessment & Plan: Feeling very well since levothyroxine dose increased 3 mos ago. documented as of this encounter (statuses as of 03/15/2023) [facility] Narrative* Problem Noted Date Diagnosed Date Resolved Date Obesity (BMI 30.0-34.9) 01/10/201503/2020 Atypical nevus 04/16/2012 06/11/2013 Urinary retention with incom plete bladder emptying 08/21/2011 06/11/2013 Urinary retention 07/05/2011 06/11/2013 Impaired fasting glucose 03/24/200901/2017 Overview: Glucose 121 in 08-17: pt lost about 8 pounds as of 03-18 Last Assessment & Plan: Current glucose 115. Has gained a few lbs. Very motivated to keep sugar down. Hypothyroidism 06/17/2015 Last Assessment & Plan: Feeling very well since levothyroxine dose increased 3 mos ago. documented as of this encounter (statuses as of 04/26/2023) [facility] Narrative* Problem Noted Date Diagnosed Date Resolved Date Obesity (BMI 30.0-34.9) 01/10/201503/2020 Atypical nevus 04/16/2012 06/11/2013 Urinary retention with incom plete bladder emptying 08/21/2011 06/11/2013 Urinary retention 07/05/2011 06/11/2013 Impaired fasting glucose 03/24/200901/2017 Overview: Glucose 121 in 08-17: pt lost about 8 pounds as of 03-18 Last Assessment & Plan: Current glucose 115. Has gained a few lbs. Very motivated to keep sugar down. Hypothyroidism 06/17/2015 Last Assessment & Plan: Feeling very well since levothyroxine dose increased 3 mos ago. documented as of this encounter (statuses as of 05/02/2023) [facility]2015 History of Past illness Narrative* Problem Noted Date Diagnosed Date Resolved Date Obesity (BMI 30.0-34.9) 01/10/201503/2020 Atypical nevus 04/16/2012 06/11/2013 Urinary retention with incom plete bladder emptying 08/21/2011 06/11/2013 Urinary retention 07/05/2011 06/11/2013 Impaired fasting glucose 03/24/200901/2017 Overview: Glucose 121 in 08-17: pt lost about 8 pounds as of 03-18 Last Assessment & Plan: Current glucose 115. Has gained a few lbs. Very motivated to keep sugar down. Hypothyroidism 06/17/2015 Last Assessment & Plan: Feeling very well since levothyroxine dose increased 3 mos ago. documented as of this encounter (statuses as of 06/29/2023) [facility] History of Past illness Narrative* Problem Noted Date Diagnosed Date Resolved Date Obesity (BMI 30.0-34.9) 01/10/201503/2020 Atypical nevus 04/16/2012 06/11/2013 Urinary retention with incom plete bladder emptying 08/21/2011 06/11/2013 Urinary retention 07/05/2011 06/11/2013 Impaired fasting glucose 03/24/200901/2017 Overview: Glucose 121 in 08-17: pt lost about 8 pounds as of 03-18 Last Assessment & Plan: Current glucose 115. Has gained a few lbs. Very motivated to keep sugar down. Hypothyroidism 06/17/2015 Last Assessment & Plan: Feeling very well since levothyroxine dose increased 3 mos ago. documented as of this encounter (statuses as of 08/03/2023) [facility]2015 History of Past illness Narrative* Problem Noted Date Diagnosed Date Resolved Date Obesity (BMI 30.0-34.9) 01/10/201503/2020 Atypical nevus 04/16/2012 06/11/2013 Urinary retention with incom plete bladder emptying 08/21/2011 06/11/2013 Urinary retention 07/05/2011 06/11/2013 Impaired fasting glucose 03/24/200901/2017 Overview: Glucose 121 in 08-17: pt lost about 8 pounds as of 03-18 Last Assessment & Plan: Current glucose 115. Has gained a few lbs. Very motivated to keep sugar down. Hypothyroidism 06/17/2015 Last Assessment & Plan: Feeling very well since levothyroxine dose increased 3 mos ago. documented as of this encounter (statuses as of 09/11/2023) [facility] No data available for this section [facility] Evaluation note* Diagnosis Erectile dysfunction, unspecified erectile dysfunction type documented in this encounter [facility] note* Diagnosis Controlled type 2 diabetes mellitus without complication, without long-term current use of insulin (HCC)- Primary Mixed hyperlipidemia Acquired hypothyroidism Unspecified hypothyroidism Encounter for long-term current use of medication documented [facility] this encounter [facility]* Diagnosis Controlled type 2 diabetes mellitus without complication, without long-term current use of insulin (HCC)- Primary Mixed hyperlipidemia Acquired hypothyroidism Unspecified hypothyroidism Encounter for long-term current use of medication [facility]* Diagnosis Onset Date Resolution Status Skin lesion acute [facility] Work Phone: Evaluydice note* Diagnosis Erectile dysfunction, unspecified erectile dysfunction type [facility]* Diagnosis Benign prostatic hyperplasia without lower urinary tract symptoms documented [facility] this encounter [facility]* Diagnosis Depression, unspecified depression type Benign prostatic hyperplasia without lower urinary tract symptoms [facility] noteNo assessment information availableWCleveland [facility] Work Phone: Evaluryipi note* Diagnosis Cough variant asthma- Primary Pure hypercholesterolemia Controlled type 2 diabetes mellitus without complication, without long-term current use of insulin (HCC) Thrombocytopenia (HCC) Thrombocytopenia, unspecified Mixed hyperlipidemia Benign prostatic hyperplasia without lower urinary tract symptoms Acquired hypothyroidism Unspecified hypothyroidism Encounter for screening for malignant neoplasm of prostate Special screening for malignant neoplasm of prostate [facility] Diagnosis Cough variant asthma [facility]* Diagnosis Controlled type 2 diabetes mellitus without complication, without long-term current use of insulin (HCC) [facility]* Diagnosis Onset Date Resolution Status Inguinal adenopathy acute [facility] Work Phone: Evaluation note* Diagnosis Urothelial carcinoma- Primary Other malignant neoplasm without specification of site [facility] Bladder carcinoma- Primary Malignant neoplasm of bladder, part unspecified [facility] Bladder carcinoma- Primary Malignant neoplasm of bladder, part unspecified [facility] Diagnosis Onset Date Resolution Status 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 Encounter for education acut e 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 [facility] Work Phone: Evaluation note* Diagnosis Onset Date Resolution Status 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 Encounter for education acut e 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 Encounter for chemotherapy management acute 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 Prerenal azotemia acute Thrombocytopenia acute Bladder cancer chronic 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 Prerenal azotemia acute Thrombocytopenia acute Bladder cancer chronic 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 Prerenal azotemia acute Thrombocytopenia acute Bladder cancer chronic 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 chronic Dysuria acute 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 [facility] Work Phone: Evaluation note* Diagnosis Onset Date Resolution Status 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 Encounter for education acut e 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 Encounter for chemotherapy management acute 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 Prerenal azotemia acute Thrombocytopenia acute Bladder cancer chronic 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 Prerenal azotemia acute Thrombocytopenia acute Bladder cancer chronic 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 Prerenal azotemia acute Thrombocytopenia acute Bladder cancer chronic 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 chronic Dysuria acute 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 Prerenal azotemia acute Bladder cancer [facility] Work Phone: Evaluation note* Diagnosis Onset Date Resolution Status Bladder cancer acute Thrombocytopenia acute 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 Prerenal azotemia resolved Bladder cancer acute Thrombocytopenia acute 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 Prerenal azotemia resolved Bladder cancer acute 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 Bladder cancer acute Dysuria acute 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 Bladder cancer acute 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 Bladder cancer acute 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 Bladder cancer acute 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 Prerenal azotemia resolved Bladder cancer acute 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 Prerenal azotemia resolved Bladder cancer acute 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 Prerenal azotemia resolved Bladder cancer acute 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 Bladder cancer acute 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 Prerenal azotemia resolved Bladder cancer acute 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 Anemia acute Bladder cancer acute Encounter for chemotherapy management acute Tinnitus acute 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 Anemia acute Bladder cancer acute Tinnitus acute 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 Anemia acute Bladder cancer acute Encounter for chemotherapy management acute Tinnitus acute 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 Bladder cancer acute 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 Bladder cancer acute 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 Bladder cancer acute 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 Bladder cancer acute 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 Bladder cancer acute 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 Bladder cancer acute 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 [facility] Work Phone: Evaluation note* Diagnosis Macrocytic anemia- Primary Unspecified deficiency anemia Acquired hypothyroidism Unspecified hypothyroidism documented [facility] this encounter [facility]* Diagnosis Acquired hypothyroidism- Primary Unspecified hypothyroidism Controlled type 2 diabetes mellitus without complication, without long-term current use of insulin ([facility]) Balance problem Other symptoms involving nervous and musculoskeletal systems Neuropathy of both feet Unspecified hereditary and idiopathic peripheral neuropathy Tinnitus of both ears Unspecified tinnitus Malignant neoplasm of urinary bladder, unspecified site ([facility]) Encounter for immunization Need for other specified prophylactic vaccination against single bacterial disease 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 ([facility]) Thrombocytopenia ([facility]) Thrombocytopenia, unspecified documented [facility] this encounter [facility]* Diagnosis Malignant neoplasm of urinary bladder, unspecified site ([facility])- Primary 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) Thrombocytopenia (HCC) Thrombocytopenia, unspecified Depression, unspecified depression type Neuropathy of both feet Unspecified hereditary and idiopathic peripheral neuropathy Controlled type 2 diabetes mellitus with diabetic polyneuropathy, without long- term current use of insulin ([facility]) Pure hypercholesterolemia documented in this encounter [facility]* Diagnosis Acquired hypothyroidism Unspecified hypothyroidism documented [facility] this [facility]* Diagnosis Pustule- Primary Unspecified local infection of skin and subcutaneous tissue Papule of skin documented [facility] this [facility]* Diagnosis Urothelial carcinoma- Primary Other malignant neoplasm without specification of site [facility] Mixed hyperlipidemia Depression, unspecified depression type [facility]* Diagnosis Depression, unspecified depression type documented [facility]* Diagnosis ED (erectile dysfunction)- Primary 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 Hypertrophy of prostate with urinary obstruction and other lower urinary tract symptoms (LUTS) Impaired fasting glucose PURE HYPERCHOLESTEROLEM Pure hypercholesterolemia Depression Depressive disorder, not elsewhere classified Hypothyroidism Unspecified hypothyroidism Elevated CK Other nonspecific abnormal serum enzyme levels Screen for colon cancer Special screening for malignant neoplasms, colon Decreased range of motion of shoulder Other symptoms referable to shoulder joint Need for prophylactic vaccination and inoculation against influenza NSTEMI (non-ST elevated myocardial infarction) ([facility])- Primary Acute myocardial infarction, subendocardial infarction, episode of care unspecified Controlled type 2 diabetes mellitus with diabetic polyneuropathy, without long- term current use of insulin (HCC) Acute bronchospasm due to viral infection Acute bronchospasm Hypomagnesemia Disorders of magnesium metabolism Anemia, unspecified type Encounter for long-term current use of medication COVID-19 virus infection 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 Encounter for immunization Need for other specified prophylactic vaccination against single bacterial disease Encounter for screening examination for other mental health and behavioral disorders documented in this encounter [facility] note* Diagnosis ED (erectile dysfunction)- Primary 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 Hypertrophy of prostate with urinary obstruction and other lower urinary tract symptoms (LUTS) Impaired fasting glucose PURE HYPERCHOLESTEROLEM Pure hypercholesterolemia Depression Depressive disorder, not elsewhere classified Hypothyroidism Unspecified hypothyroidism Elevated CK Other nonspecific abnormal serum enzyme levels Screen for colon cancer Special screening for malignant neoplasms, colon Decreased range of motion of shoulder Other symptoms referable to shoulder joint Need for prophylactic vaccination and inoculation against influenza Diabetes mellitus without complication (HCC) Type II or unspecified type diabetes mellitus without mention of complication, not stated as uncontrolled documented in this encounter [facility] note* Diagnosis ED (erectile dysfunction)- Primary 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 Hypertrophy of prostate with urinary obstruction and other lower urinary tract symptoms (LUTS) Impaired fasting glucose PURE HYPERCHOLESTEROLEM Pure hypercholesterolemia Depression Depressive disorder, not elsewhere classified Hypothyroidism Unspecified hypothyroidism Elevated CK Other nonspecific abnormal serum enzyme levels Screen for colon cancer Special screening for malignant neoplasms, colon Decreased range of motion of shoulder Other symptoms referable to shoulder joint Need for prophylactic vaccination and inoculation against influenza Acquired hypothyroidism Unspecified hypothyroidism Mixed hyperlipidemia documented in this encounter [facility] note* Diagnosis ED (erectile dysfunction)- Primary 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 Hypertrophy of prostate with urinary obstruction and other lower urinary tract symptoms (LUTS) Impaired fasting glucose PURE HYPERCHOLESTEROLEM Pure hypercholesterolemia Depression Depressive disorder, not elsewhere classified Hypothyroidism Unspecified hypothyroidism Elevated CK Other nonspecific abnormal serum enzyme levels Screen for colon cancer Special screening for malignant neoplasms, colon Decreased range of motion of shoulder Other symptoms referable to shoulder joint Need for prophylactic vaccination and inoculation against influenza Medicare annual wellness visit, subsequent- Primary Routine general medical examination at a health care facility Controlled type 2 diabetes mellitus with diabetic polyneuropathy, without long- term current use of insulin ([facility]) Essential (primary) hypertension Unspecified essential hypertension Mixed hyperlipidemia Cataract of both eyes, unspecified cataract type documented in this encounter [facility] note* Diagnosis ED (erectile dysfunction)- Primary 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 Hypertrophy of prostate with urinary obstruction and other lower urinary tract symptoms (LUTS) Impaired fasting glucose PURE HYPERCHOLESTEROLEM Pure hypercholesterolemia Depression Depressive disorder, not elsewhere classified Hypothyroidism Unspecified hypothyroidism Elevated CK Other nonspecific abnormal serum enzyme levels Screen for colon cancer Special screening for malignant neoplasms, colon Decreased range of motion of shoulder Other symptoms referable to shoulder joint Need for prophylactic vaccination and inoculation against influenza Diabetes mellitus without complication (HCC) Type II or unspecified type diabetes mellitus without mention of complication, not stated as uncontrolled documented in this encounter [facility] note* Diagnosis ED (erectile dysfunction)- Primary 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 Hypertrophy of prostate with urinary obstruction and other lower urinary tract symptoms (LUTS) Impaired fasting glucose PURE HYPERCHOLESTEROLEM Pure hypercholesterolemia Depression Depressive disorder, not elsewhere classified Hypothyroidism Unspecified hypothyroidism Elevated CK Other nonspecific abnormal serum enzyme levels Screen for colon cancer Special screening for malignant neoplasms, colon Decreased range of motion of shoulder Other symptoms referable to shoulder joint Need for prophylactic vaccination and inoculation against influenza Erectile dysfunction, unspecified erectile dysfunction type- Primary Controlled type 2 diabetes mellitus with diabetic polyneuropathy, without long- term current use of insulin (HCC) Essential (primary) hypertension Unspecified essential hypertension Mixed hyperlipidemia Acquired hypothyroidism Unspecified hypothyroidism 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) Malignant neoplasm of urinary bladder, unspecified site (HCC) Major depressive disorder with single episode, in partial remission (HCC) documented in this encounter [facility] note* Diagnosis ED (erectile dysfunction)- Primary 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 Hypertrophy of prostate with urinary obstruction and other lower urinary tract symptoms (LUTS) Impaired fasting glucose PURE HYPERCHOLESTEROLEM Pure hypercholesterolemia Depression Depressive disorder, not elsewhere classified Hypothyroidism Unspecified hypothyroidism Elevated CK Other nonspecific abnormal serum enzyme levels Screen for colon cancer Special screening for malignant neoplasms, colon Decreased range of motion of shoulder Other symptoms referable to shoulder joint Need for prophylactic vaccination and inoculation against influenza Controlled type 2 diabetes mellitus with diabetic polyneuropathy, without long- term current use of insulin (HCC)- Primary Acquired hypothyroidism Unspecified hypothyroidism Essential (primary) hypertension Unspecified essential hypertension Mixed hyperlipidemia Malignant neoplasm of urinary bladder, unspecified site (HCC) 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, in partial remission [facility]* Diagnosis ED (erectile dysfunction)- Primary 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 Hypertrophy of prostate with urinary obstruction and other lower urinary tract symptoms (LUTS) Impaired fasting glucose PURE HYPERCHOLESTEROLEM Pure hypercholesterolemia Depression Depressive disorder, not elsewhere classified Hypothyroidism Unspecified hypothyroidism Elevated CK Other nonspecific abnormal serum enzyme levels Screen for colon cancer Special screening for malignant neoplasms, colon Decreased range of motion of shoulder Other symptoms referable to shoulder joint Need for prophylactic vaccination and inoculation against influenza Controlled type 2 diabetes mellitus with diabetic polyneuropathy, without long- term current use of insulin (HCC) [facility]* Diagnosis Bladder carcinoma- Primary Malignant neoplasm of bladder, part unspecified [facility] No data available for this section [facility] Discharge instructionsAmbulatory Orders* General Surgery Location: [facility] Work Phone: Instructions* Attachments The following attachments cannot be sent through Care Everywhere. * Cyst[facility] Office ([facility]) ([place]) [facility] Author Jim Ward [facility] Note Date/Time June 01, 2025 9:29am [facility] [address] [address] OFFICE VISIT Date of Service: 06/01/25 0858 MR#: [id number] Acct: [id number] Name: DEBO HULL Sri Rep #: [id number] : 1945 From: Jim adorno DO Age/Sex: 80/M Location: [facility] Status: Signed Intake Vital Signs 12/01/24 09:07 03/17/25 08:57 06/01/25 09:10 Height 5 ft 10 in 5 ft 10 in 5 ft 10 in Weight: 204 lb BMI 29.2 BP 113/66 Blood Pressure Location Rt brachial Position Sitting Respiration 18 Pulse 71 Pulse Source Monitor Temp 97.6 F L Temperature Source Temporal Artery Pulse Oximetry (%) 98 Oxygen Delivery Method room air Intake Is patient in pain?: No Allergies ipratropium (From Atrovent) Allergy (Severe, Verified 03/17/25 08:57) Other Medications ?Medication ?Instructions ?Recorded ?Confirmed ?Type bupropion HCl 150 mg 24 hr tablet, 150 mg PO QAM [facility] 02/27/24 06/01/25 History extended release (Wellbutrin XL) albuterol sulfate 90 mcg/actuation 2 puff inhalation Q 8H PRN wheezing 06/04/24 06/01/25 History aerosol inhaler levothyroxine 112 mcg tablet 112 mcg PO .qam thyroid 0 06/04/24 06/01/25 History aspirin 81 mg tablet,delayed 81 mg PO BREAKFAST #0 tab s 06/06/24 06/01/25 Rx release atorvastatin 40 mg tablet 40 mg PO QHS #30 tabs 06/01/25 Rx sildenafil 100 mg tablet 100 mg PO QDAY PRN ED 06/01/25 History cyanocobalamin (vitamin B-12) 500 500 mcg PO QDAY 05/0406/01/25 History mcg tablet glipizide 2.5 mg tablet, extended 2.5 mg PO QDAY Diabe isidro 03/17/25 06/01/25 History release 24 hr Have you fallen in the past year?: No Central Venous Access Central Venous Access: No PFSH PFSH Medical History COVID Dehydration Tinnitus Anemia Dysuria Prerenal azotemia Thrombocytopenia Encounter for chemotherapy management Cancer Alcohol use Kidney stones Back pain Encounter for education 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 cancer Wears glasses Diabetes Arthritis Former smoker Asthma History of echocardiogram History of stress test Skin lesion Thyroid disease High blood cholesterol Home Medications ?Medication ?Instructions ?Recorded ?Last Taken ?Type bupropion HCl 150 mg 24 hr tablet, 150 mg PO QAM [employer] 02/27/24 06/04/24 07:00 History extended release (Wellbutrin XL) albuterol sulfate 90 mcg/actuation 2 puff inhalation Q 8H PRN wheezing 06/04/24 Unknown History aerosol inhaler levothyroxine 112 mcg tablet 112 mcg PO .qam thyroid 0 06/04/24 06/04/24 07:00 History aspirin 81 mg tablet,delayed 81 mg PO BREAKFAST #0 tab s 06/06/24 Unknown Rx release atorvastatin 40 mg tablet 40 mg PO QHS #30 tabs Unknown Rx sildenafil 100 mg tablet 100 mg PO QDAY PRN ED Unknown History cyanocobalamin (vitamin B-12) 500 500 mcg PO QDAY 0705/04 Unknown History mcg tablet glipizide 2.5 mg tablet, extended 2.5 mg PO QDAY Diabe isidro 03/17/25 Unknown History release 24 hr Allergy/AdvReac Type Severity Reaction Status Date / Time ipratropium (From Atrovent) Allergy Severe Other Verified 03/17/25 08:57 Family History Mother Colon cancer Grandmother Colon cancer Grandfather CVA (cerebral vascular accident) Grandmother CVA (cerebral vascular accident) Surgical History S/P TURP (status post transurethral resection of prostate) History of transurethral resection of bladder tumor (TURBT) History of cystoscopy Hx of transurethral destruction of bladder lesion Hx of colonoscopy History of thyroidectomy Social History Smoking Status: Former smoker alcohol intake: never Diagnosis: Debo Hull is a 80-year-old male diagnosed with initially stage I (pT1 Nx Mx) low-grade invasive papillary urothelial carcinoma with areas of high-grade differentiation status post TURBT (06/2021), infusion of Mitomycin-C and BCG, repeat TURBT (08/2021), and now has disease recurrence with a solitary lymph node within the right groin status post CT abdomen/pelvis with contrast (11/29/2022), right groin lymph node core needle biopsy (12/05/2022), PET scan (12/18/2022), brain MRI with and without contrast (12/20/2022), cystoscopy (02/08/2023), TURP (04/18/2023), and 6 cycles of gem/cis (02/20/2023 ? 06/11/2023). From 07/16/2023 ? 08/20/2023 he received consolidation radiation therapy. History of Present Illness: 06/2021: Patient completed TURBT and pathology demonstrated grade 2 invasive papillary urothelial carcinoma.? Tumor invades lamina propria and no lymph- vascular invasion is identified, no muscularis invasion.? Tumor shows areas of high grade when [facility] path reviewed.? Patient received intravesicular Mitomycin-C and BCG.? 08/2021: TURBT was performed.? This demonstrated evidence for grade 1 papillary urothelial carcinoma which was noninvasive and the patient has been placed on surveillance. November 2022: Patient noticed a right inguinal painless enlarged lymph node. 11/29/2022: CT abdomen/pelvis with contrast was performed.? This demonstrated diffuse bladder wall thickening with prostatic enlargement and prostatic calcifications.? There is an Tatian of the bladder base.? There is evidence of a2.4 x 1.4 cm lymph node in the right inguinal region.? Smaller lymph nodes are also demonstrated in both inguinal regions more prominent on the right side. 12/05/2022: Right groin lymph node core biopsy was performed.? This demonstrated metastatic non-small cell carcinoma within IHC profile compatible with clinical impression of urothelial primary with focal squamous differentiation also noted.? Second opinion at [facility] Department of pathology was completed and concluded as urothelial origin. 12/18/2022: PET scan was performed.? This demonstrated increased radiopharmaceutical concentration to find in the right inguinal region fulfilling quantitative criteria for viable neoplasm.? There is also enhanced tracer uptake noted in the region of the base of the prostate gland which does not fulfill quantitative criteria for malignant transformation. 12/20/2022: Brain MRI with and without contrast was performed.? This demonstratedno evidence for metastatic disease. 02/08/2023: Patient completed cystoscopy.? This demonstrated no abnormalities. 02/20/2023 ? 06/11/2023: completed 6 cycles of Mcintosh/Cis 04/18/2023: TURP completed due to obstructive symptoms, pathology showed BPH with no evidence for malignancy. From 07/16/2023 ? 08/20/2023: received consolidative radiation therapy consistingof 4500 cGy delivered to the right inguinal lymph node region with a simultaneous integrated boost to 5500 cGy delivered to the concerning lymph nodes all in 25 fractions. He was treated using a VMAT technique using 6 MV photons. 10/04/2023: Patient completed cystoscopy. No abnormalities were noted. 11/27/2023: PET scan was completed.? This demonstrated persistent increased radiopharmaceutical concentration defined in the mid abdominal mesentery to the left of midline demonstrating a calculated SUV of 3.8 compared to 8.2 on the prior study.? The maximum diameter of this area is 1.4 cm compared to 1.3 cm previously.? There appears to be persistent pooling of radiopharmaceutical concentration noted in the prostatic urethra.? No other evidence of disease is noted. 02/20/2024: CT abdomen/pelvis with contrast was performed. This demonstrated small lymph node seen at the root of the mesentery, no masses seen. Essentiallystable and unchanged exam. 04/03/2024: Patient completed cystoscopy. This demonstrated no abnormalities. 08/13/2024: Patient completed CT chest/abdomen/pelvis with contrast. This demonstrated stable examination. Diffuse bladder wall thickening prostatic enlargement with central prostatic calcification. No adenopathy or other abnormalities. 02/16/2025: Patient completed CT chest/abdomen/pelvis with contrast. This demonstrated no concerning findings. Stable exam. Radiation Treatment History: 1) From 07/16/2023 ? 08/20/2023: received consolidative radiation therapy consisting of 4500 cGy delivered to the right inguinal lymph node region with a simultaneous integrated boost to 5500 cGy delivered to the concerning lymph nodes all in 25 fractions. He was treated using a VMAT technique using 6 MV photons. Interval History: Patient presents for routine follow-up approximately 21 months after completing consolidative radiation therapy to the right inguinal region. He reports doing very well overall. He denies having skin redness/tanning or peeling. He does have hair loss in the treated right groin. Some increase sensitivity in the skinbut improved with lotion. He denies having adenopathy or swelling in his leg. He denies firmness in the treated area and has full leg range of motion intact. He does report normal bowel and urinary function without any new changes. Specifically he denies hematuria, frequency, incontinence, leakage, pain. He denies having diarrhea or constipation and denies any rectal pain or bleeding. Energy level is normal. He denies headache, vision changes, cough, shortness ofbreath, chest pain, bone pain. He does report mild R>L foot tingling/neuropathysince chemo, stable. He is able to complete all ADLs without any difficulty andhe denies having other problems or concerns at this time. Review of Systems: A 12-point review of systems was completed and was negative except for what is noted in the HPI/Interval History and by the nurse. Physical Exam: Weight: 204 lbs 6 oz ECO KARNOFSKY SCORE: 80% CONSTITUTIONAL: Well-developed, well-nourished, and in no apparent distress. CARDIAC: Regular rate and rhythm. Normal S1, S2. No murmurs, rubs, or gallops. PULMONARY/CHEST: Lungs are clear to auscultation and percussion bilaterally. No wheezes, rhonchi, or crackles noted. No increased work of breathing. BACK: Straight and aligned. No CVA tenderness. Axial skeleton non-tender to percussion. EXTREMITIES: Full range of motion in all four extremities. No evidence of edema.No groin tanning, no adenopathy. PSYCHIATRIC: Appropriate mood and affect for the clinical situation. 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: (2) Bladder cancer: QUALIFIERS: Bladder location: overlapping sites Qualified Code(s): C67.8 - Malignant neoplasm of overlapping sites of bladder PLAN: Plan Debo Hull is a 80-year-old male diagnosed with initially stage I (pT1 Nx Mx) low-grade invasive papillary urothelial carcinoma with areas of high-grade differentiation status post TURBT (06/2021), infusion of Mitomycin-C and BCG, repeat TURBT (08/2021), and now has disease recurrence with a solitary lymph node within the right groin status post CT abdomen/pelvis with contrast (11/29/2022), right groin lymph node core needle biopsy (12/05/2022), PET scan (12/18/2022), brain MRI with and without contrast (12/20/2022), cystoscopy (02/08/2023), TURP (04/18/2023), and 6 cycles of gem/cis (02/20/2023 ? 06/11/2023). From 07/16/2023 ? 08/20/2023 he received consolidation radiation therapy. Plan: Patient presents for follow-up approximately 21 months after completing consolidative radiation therapy to the right inguinal region. He is doing very welloverall and does not appear to have any residual toxicity from treatment other than hair loss in the right groin. He completed a cystoscopy on March 2025 at [facility] which demonstrated no evidence of abnormality within the urethra or bladder,he is planning for cystoscopy as needed in future. CT scans continue to be stable and planning for repeat CT in August. He will complete restaging in August and see medical oncology. I will plan to have him return for follow-upas needed in the future and he was instructed to call with any questions or concerns in the interim. Thank you for allowing me to participate in the management and care of your patient. If I may answer any questions in the interim, please do not hesitate tocontact me at any time. 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 C77.4 Malignant neoplasm of overlapping sites of bladder C67.8 Bladder location: overlapping sites 06/01/25 0939 <Electronically signed by Jim Ward DO> Date _ Jim Ward DO Cosigner Signature: Date (if applicable) CC: ~ [place] [employer] Work Phone: Reason for referral (narrative)* Outpatient Procedure (Routine) - Authorized Specialty Diagnoses / Procedures Referred By Contac t Referred To Contact [facility] Diagnoses Cough variant asthma Procedures SPIROMETRY - BASELINE AND POST DILATOR BRNCDILAT RSPSE SPMTRY PRE&POST-BRNCDILAT N Angely Clements, HAM.[employer] [address] [place] [address] Respiratory [place] [address] [place] [address] Referral ID Status Reason Start Date Expiration Date Visits Requested Visits Authorized [id number] Authorized Auto-Generat ed Referral 06/15/2022 07/15/2023 1 1 [facility] for referral (narrative)No reason for referral information [facility]WCleveland [facility] Work Phone: Summary Purpose Family History No Family History Records Found Relationship Condition Age at Onset Recorded Date/T rajni mother Malignant neoplasm of colon Unknown grandmother Malignant neoplasm of colon Unknown grandfather Cerebrovascular accident (CVA) Unknown grandmother Cerebrovascular accident (CVA) Unknown Advance Directives No Advanced Directives Records FoundDocuments on File Type Date Recorded 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 Advance Directive(s) 01/23/2017 6:23 AM Advance Directive(s) 07/13/2016 12:00 AM Advance Directive Response Recorded Date/ Time Living Will Yes August 12 4:01pm Power of Lining Strap Closer Yes August 12, 2021 4:01pm Documents on File Type Date Recorded 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 Advance Directive(s) 07/13/2016 12:00 AM Documents on File Type Date Recorded 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 Advance Directive(s) 07/13/2016 12:00 AM Advance Directive Response Recorded Date/ Time Name of Medical Power of Lining Strap Closer SAVITA HULL February 12, 2023 1:59pm Living Will Yes August 12 4:01pm Power of Lining Strap Closer Yes August 12, 2021 4:01pm Advance Directive Response Recorded Date/ Time Advance Directives on File Yes 2022 3:19pm Name of Medical Power of Lining Strap Closer Savita Hull April 11, 2023 3:19pm Advance Directives Yes April 11, 2 023 3:19pm Living Will Yes April 11, 2023 3:19pm Power of Lining Strap Closer Yes April 11 3:19pm Name of Medical Power of Lining Strap Closer SAVITA HULL February 12, 2023 1:59pm Advance Directive Response Recorded Date/ Time Advance Directives on File Yes Augus t 2022 4:11pm Name of Medical Power of Lining Strap Closer Savita Hull April 16, 2023 4:11pm Name of Medical Power of Lining Strap Closer SAVITA HULL February 12, 2023 1:59pm Name of Medical Power of Lining Strap Closer Savita Hull April 18, 2023 5:40pm Advance Directives Yes April 16, 023 4:11pm Living Will Yes April 18, 2023 5:40pm Power of Lining Strap Closer Yes April 18 5:40pm Advance Directive Response Recorded Date/ Time Advance Directives on File Yes Octob er 2022 9:55am Name of Medical Power of Lining Strap Closer Savita Hull June 20, 2023 9:55am Advance Directives Yes June 20, 2023 9:55am Living Will Yes June 20 9:55am Power of Lining Strap Closer Yes June 20, 2023 9:55am Name of Medical Power of Lining Strap Closer Savita Hull April 18, 2023 5:40pm Advance Directive Response Recorded Date/ Time Living Will Yes June 20 9:55am Do you have a Healthcare Power of Lining Strap Closer? Yes June 20, 2023 9:55am Advance Directives on File Yes Octob er 2022 9:55am Name of Medical Power of Lining Strap Closer Savita Hull June 20, 2023 9:55am Advance Directives Yes June 20, 2023 9:55am Advance Directive Response Recorded Date/ Time Advance Directives on File Yes Octob er 2022 9:55am Living Will Yes June 20 9:55am Do you have a Healthcare Power of Lining Strap Closer? Yes June 20, 2023 9:55am Name of Medical Power of Lining Strap Closer Savita Hull June 20, 2023 9:55am Advance Directives Yes June 20, 2023 9:55am Chief Complaint and Reason for Visit Chief Complaint HAS BUMP ON NOSE LEYDA T MAY NEED REMOVED BIOPSY/SKIN LESION ON NOSE Reason for Visit Skin lesion Chief Complaint Amaurosis fugax BENIGN NEOPLASM OF LYMPH NODES Chief Complaint Amaurosis fugax BENIGN NEOPLASM OF LYMPH NODES INGUINAL LYMPH NODE Reason for Visit Inguinal adenopathy Chief Complaint Amaurosis fugax BENIGN NEOPLASM OF LYMPH NODES INGUINAL LYMPH NODE NEW-BLADDER CA STAGING BLADDER CANCER 2WKS REVIEW LABS/PET/MRI F/U AFTER [facility] BLADDER CHEMO ED PORT PLACEMENT Reason for Visit Malignant neoplasm m etastatic to inguinal lymph node Bladder cancer 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 cancer 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 cancer Encounter for education 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 cancer 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 cancer Chief Complaint NEW-BLADDER CA STAGING BLADDER CANCER 2WKS REVIEW LABS/PET/MRI F/U AFTER [facility] CHEMO ED PORT PLACEMENT NEW START - LABS - CISPLATIN/GEM 1 WK - LABS - CIS/GEM TOX CHECK - LABS 1 WK - LABS - CIS/GEM 1 WK - LABS - CIS/GEM TOX CHECK - LABS 2 WKS LABS CIS/GEM 1WK LABS GEMZAR/CIS BLADDER Reason for Visit Malignant neoplasm m etastatic to inguinal lymph node Bladder cancer 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 cancer 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 cancer Encounter for education 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 cancer 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 cancer 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 cancer Encounter for chemotherapy management 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 Prerenal azotemia Thrombocytopenia Bladder cancer 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 Prerenal azotemia Thrombocytopenia Bladder cancer 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 Prerenal azotemia Thrombocytopenia Bladder cancer 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 cancer Dysuria 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 cancer 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 cancer 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 cancer Chief Complaint STAGING BLADDER CANC ER 2WKS REVIEW LABS/PET/MRI F/U AFTER [facility] CHEMO ED PORT PLACEMENT NEW START - LABS - CISPLATIN/GEM 1 WK - LABS - CIS/GEM TOX CHECK - LABS 1 WK - LABS - CIS/GEM 1 WK - LABS - CIS/GEM TOX CHECK - LABS 2 WKS LABS CIS/GEM 1WK LABS GEMZAR/CIS TOX CHECK LABS Transurethral Resection of the Prostate with Olymp access port for surgery Reason for Visit Malignant neoplasm m etastatic to inguinal lymph node Bladder cancer 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 cancer Encounter for education 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 cancer 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 cancer 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 cancer Encounter for chemotherapy management 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 Prerenal azotemia Thrombocytopenia Bladder cancer 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 Prerenal azotemia Thrombocytopenia Bladder cancer 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 Prerenal azotemia Thrombocytopenia Bladder cancer 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 cancer Dysuria 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 cancer 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 cancer 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 Prerenal azotemia Bladder cancer 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 Prerenal azotemia Bladder cancer 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 Prerenal azotemia Bladder cancer 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 cancer 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 Prerenal azotemia Bladder cancer 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 Anemia Bladder cancer Encounter for chemotherapy management Tinnitus 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 Anemia Bladder cancer Tinnitus 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 Anemia Bladder cancer Encounter for chemotherapy management Tinnitus 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 cancer 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 cancer 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 cancer 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 cancer 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 cancer 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 cancer 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 Chief Complaint Admit Date 6 MONTH F/U December 01, 2024 8:5 1am port flush February 16, 2025 8:00a m BLADDER CANCER February 16, 2025 8:12a m Reason for Visit Admit Date Bladder cancer December 01, 2024 8:5 1am Malignant neoplasm metastatic to inguina l lymph node December 01, 2024 8:51am Chief Complaint Admit Date 6 MONTH F/U December 01, 2024 8:5 1am port flush February 16, 2025 8:00a m BLADDER CANCER February 16, 2025 8:12a m 6 MO - LABS (DOING WITH CT) - REVIEW [facility] March 05, 2025 1:17pm Reason for Visit Admit Date Bladder cancer December 01, 2024 8:5 1am Malignant neoplasm metastatic to inguina l lymph node December 01, 2024 8:51am Bladder cancer March 05, 2025 1:17 pm Malignant neoplasm metastatic to inguina l lymph node March 05, 2025 1:17pm Chief Complaint Admit Date 6 MONTH F/U December 01, 2024 8:5 1am port flush February 16, 2025 8:00a m BLADDER CANCER February 16, 2025 8:12a m 6 MO - LABS (DOING WITH CT) - REVIEW [facility] March 05, 2025 1:17pm PORT REMOVAL March 09, 2025 9:08 am Chief Complaint Admit Date 6 MONTH F/U December 01, 2024 8:5 1am port flush February 16, 2025 8:00a m BLADDER CANCER February 16, 2025 8:12a m 6 MO - LABS (DOING WITH CT) - REVIEW [facility] March 05, 2025 1:17pm PORT REMOVAL March 09, 2025 9:08 am 9 M FU March 17, 2025 8:54a m Reason for Visit Admit Date Bladder cancer December 01, 2024 8:5 1am Malignant neoplasm metastatic to inguina l lymph node December 01, 2024 8:51am Bladder cancer March 05, 2025 1:17 pm Malignant neoplasm metastatic to inguina l lymph node March 05, 2025 1:17pm Bladder cancer March 09, 2025 9:08 am Malignant neoplasm metastatic to inguina l lymph node March 09, 2025 9:08am Chief Complaint Admit Date port flush February 16, 2025 8:00a m BLADDER CANCER February 16, 2025 8:12a m 6 MO - LABS (DOING WITH CT) - REVIEW [facility] March 05, 2025 1:17pm PORT REMOVAL March 09, 2025 9:08 am 9 M FU March 17, 2025 8:54a m 6 MONTH F/U June 01, 2025 8:53am Reason for Visit Admit Date Bladder cancer March 05, 2025 1:17 pm Malignant neoplasm metastatic to inguina l lymph node March 05, 2025 1:17pm Bladder cancer March 09, 2025 9:08 am Malignant neoplasm metastatic to inguina l lymph node March 09, 2025 9:08am Dilated aortic root March 17, 2025 8:54a m Nonobstructive atherosclerosis of leal ry artery March 17, 2025 8:54am Bladder cancer June 01, 2025 8:53am Malignant neoplasm metastatic to inguina l lymph node June 01, 2025 8:53am Additional Source Comments (unrecognized sect ion and content) No Status Records FoundNo Status Records FoundNo Status Records FoundNo Status Records FoundNo Status Records Found INFORMATION SOURCE (unrecogn ized section and content) DATE CREATED AUTHOR 07/30/2021 [facility] ([place]) DATE CREATED AUTHOR AUTHOR'S ORGANIZ ATION 08/13/2021 [facility] DATE CREATED AUTHOR AUTHOR'S ORGANIZ ATION 04/03/2025 [facility] DATE CREATED AUTHOR AUTHOR'S ORGANIZ ATION 06/01/2025 [facility] DATE CREATED AUTHOR AUTHOR'S ORGANIZ ATION 07/16/2025 [facility] Source Comments (unrecognize d section and content) In the event this informatio n is protected by the Federal Confidentiality of Alcohol and Drug Abuse Patient Records regulations: The Federal rules restrict any use of the information to criminally investigate or prosecute any alcohol or drug abuse patient.[facility] the event this information is protected by the Federal Confidentiality of Alcohol and Drug Abuse Patient Records regulations: The Federal rules restrict any use of the information to criminally investigate or prosecute any alcohol or drug abuse patient.[facility] HospitalIn the event this information is protected by the Federal Confidentiality of Alcohol and Drug Abuse Patient Records regulations: The Federal rules restrict any use of the information to criminally investigate or prosecute any alcohol or drug abuse patient.[facility] HospitalIn the event this information is protected by the Federal Confidentiality of Alcohol and Drug Abuse Patient Records regulations: The Federal rules restrict any use of the information to criminally investigate or prosecute any alcohol or drug abuse patient.[facility] HospitalIn the event this information is protected by the Federal Confidentiality of Alcohol and Drug Abuse Patient Records regulations: The Federal rules restrict any use of the information to criminally investigate or prosecute any alcohol or drug abuse patient.[facility] HospitalIn the event this information is protected by the Federal Confidentiality of Alcohol and Drug Abuse Patient Records regulations: The Federal rules restrict any use of the information to criminally investigate or prosecute any alcohol or drug abuse patient.[facility] HospitalIn the event this information is protected by the Federal Confidentiality of Alcohol and Drug Abuse Patient Records regulations: The Federal rules restrict any use of the information to criminally investigate or prosecute any alcohol or drug abuse patient.[facility] HospitalIn the event this information is protected by the Federal Confidentiality of Alcohol and Drug Abuse Patient Records regulations: The Federal rules restrict any use of the information to criminally investigate or prosecute any alcohol or drug abuse patient.[facility] HospitalIn the event this information is protected by the Federal Confidentiality of Alcohol and Drug Abuse Patient Records regulations: The Federal rules restrict any use of the information to criminally investigate or prosecute any alcohol or drug abuse patient.[facility] HospitalIn the event this information is protected by the Federal Confidentiality of Alcohol and Drug Abuse Patient Records regulations: The Federal rules restrict any use of the information to criminally investigate or prosecute any alcohol or drug abuse patient.[facility] HospitalIn the event this information is protected by the Federal Confidentiality of Alcohol and Drug Abuse Patient Records regulations: The Federal rules restrict any use of the information to criminally investigate or prosecute any alcohol or drug abuse patient.[facility] HospitalIn the event this information is protected by the Federal Confidentiality of Alcohol and Drug Abuse Patient Records regulations: The Federal rules restrict any use of the information to criminally investigate or prosecute any alcohol or drug abuse patient.[facility] HospitalIn the event this information is protected by the Federal Confidentiality of Alcohol and Drug Abuse Patient Records regulations: The Federal rules restrict any use of the information to criminally investigate or prosecute any alcohol or drug abuse patient.[facility] HospitalIn the event this information is protected by the Federal Confidentiality of Alcohol and Drug Abuse Patient Records regulations: The Federal rules restrict any use of the information to criminally investigate or prosecute any alcohol or drug abuse patient.[facility] HospitalIn the event this information is protected by the Federal Confidentiality of Alcohol and Drug Abuse Patient Records regulations: The Federal rules restrict any use of the information to criminally investigate or prosecute any alcohol or drug abuse patient.[facility] HospitalIn the event this information is protected by the Federal Confidentiality of Alcohol and Drug Abuse Patient Records regulations: The Federal rules restrict any use of the information to criminally investigate or prosecute any alcohol or drug abuse patient.[facility] HospitalIn the event this information is protected by the Federal Confidentiality of Alcohol and Drug Abuse Patient Records regulations: The Federal rules restrict any use of the information to criminally investigate or prosecute any alcohol or drug abuse patient.[facility] HospitalIn the event this information is protected by the Federal Confidentiality of Alcohol and Drug Abuse Patient Records regulations: The Federal rules restrict any use of the information to criminally investigate or prosecute any alcohol or drug abuse patient.[facility] HospitalIn the event this information is protected by the Federal Confidentiality of Alcohol and Drug Abuse Patient Records regulations: The Federal rules restrict any use of the information to criminally investigate or prosecute any alcohol or drug abuse patient.[facility] HospitalIn the event this information is protected by the Federal Confidentiality of Alcohol and Drug Abuse Patient Records regulations: The Federal rules restrict any use of the information to criminally investigate or prosecute any alcohol or drug abuse patient.[facility] HospitalIn the event this information is protected by the Federal Confidentiality of Alcohol and Drug Abuse Patient Records regulations: The Federal rules restrict any use of the information to criminally investigate or prosecute any alcohol or drug abuse patient.[facility] HospitalIn the event this information is protected by the Federal Confidentiality of Alcohol and Drug Abuse Patient Records regulations: The Federal rules restrict any use of the information to criminally investigate or prosecute any alcohol or drug abuse patient.[facility] HospitalIn the event this information is protected by the Federal Confidentiality of Alcohol and Drug Abuse Patient Records regulations: The Federal rules restrict any use of the information to criminally investigate or prosecute any alcohol or drug abuse patient.[facility] HospitalIn the event this information is protected by the Federal Confidentiality of Alcohol and Drug Abuse Patient Records regulations: The Federal rules restrict any use of the information to criminally investigate or prosecute any alcohol or drug abuse patient.[facility] HospitalIn the event this information is protected by the Federal Confidentiality of Alcohol and Drug Abuse Patient Records regulations: The Federal rules restrict any use of the information to criminally investigate or prosecute any alcohol or drug abuse patient.[facility] HospitalIn the event this information is protected by the Federal Confidentiality of Alcohol and Drug Abuse Patient Records regulations: The Federal rules restrict any use of the information to criminally investigate or prosecute any alcohol or drug abuse patient.[facility] HospitalIn the event this information is protected by the Federal Confidentiality of Alcohol and Drug Abuse Patient Records regulations: The Federal rules restrict any use of the information to criminally investigate or prosecute any alcohol or drug abuse patient.[facility] HospitalIn the event this information is protected by the Federal Confidentiality of Alcohol and Drug Abuse Patient Records regulations: The Federal rules restrict any use of the information to criminally investigate or prosecute any alcohol or drug abuse patient.[facility] HospitalIn the event this information is protected by the Federal Confidentiality of Alcohol and Drug Abuse Patient Records regulations: The Federal rules restrict any use of the information to criminally investigate or prosecute any alcohol or drug abuse patient.[facility] HospitalIn the event this information is protected by the Federal Confidentiality of Alcohol and Drug Abuse Patient Records regulations: The Federal rules restrict any use of the information to criminally investigate or prosecute any alcohol or drug abuse patient.[facility] HospitalIn the event this information is protected by the Federal Confidentiality of Alcohol and Drug Abuse Patient Records regulations: The Federal rules restrict any use of the information to criminally investigate or prosecute any alcohol or drug abuse patient.[facility] HospitalIn the event this information is protected by the Federal Confidentiality of Alcohol and Drug Abuse Patient Records regulations: The Federal rules restrict any use of the information to criminally investigate or prosecute any alcohol or drug abuse patient.[facility] HospitalIn the event this information is protected by the Federal Confidentiality of Alcohol and Drug Abuse Patient Records regulations: The Federal rules restrict any use of the information to criminally investigate or prosecute any alcohol or drug abuse patient.[facility] HospitalIn the event this information is protected by the Federal Confidentiality of Alcohol and Drug Abuse Patient Records regulations: The Federal rules restrict any use of the information to criminally investigate or prosecute any alcohol or drug abuse patient.[facility] HospitalIn the event this information is protected by the Federal Confidentiality of Alcohol and Drug Abuse Patient Records regulations: The Federal rules restrict any use of the information to criminally investigate or prosecute any alcohol or drug abuse patient.[facility] HospitalIn the event this information is protected by the Federal Confidentiality of Alcohol and Drug Abuse Patient Records regulations: The Federal rules restrict any use of the information to criminally investigate or prosecute any alcohol or drug abuse patient.[facility] Reason for Visit (unrecogniz ed section and content) Reason Onset Date Comments Refill Request 12/01/2021 Reason Comments F/U 6 months Reason Onset Date Comments Refill Request 12/07/2021 Reason Onset Date Comments Refill Request 02/04/2022 Reason Onset Date Comments Refill Request 05/05/2022 Reason Comments F/U 6 months Reason Comments Spirometry Specialty Diagnoses / Procedures Referred By Contac t Referred To Contact [facility] Diagnoses Cough variant asthma Procedures SPIROMETRY - BASELINE AND POST DILATOR BRNCDILAT RSPSE SPMTRY PRE&POST-BRNCDILAT ADMN Angely Clements, HAM.THREAD SPINNER [address] [place] [address] Respiratory [place] [address] [place] [address] Referral ID Status Reason Start Date Expiration Date V isits Requested Visits Authorized [id number] Closed Auto-Generate d Referral 06/15/2022 07/15/2023 1 1 Reason Onset Date Comments Refill Request 10/02/2022 Reason Comments Follow-up Specialty Diagnoses / Procedures Referred By Contac t Referred To Contact Oncology Diagnoses Malignant neoplasm of urinary bladder, unspecified site 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 Robby Benitez, [facility] [address] [place] [address] Ryann Plaza MD [address] [place] [address] Referral ID Status Reason Start Date Expiration Date V isits Requested Visits Authorized [id number] New Request 12/29/2022 01/23/2024 1 1 Reason Comments New Patient Bladder Cancer Specialty Diagnoses / Procedures [facility] Diagnoses Malignant neoplasm of urinary bladder, unspecified site Pamela Middleton MD, PhD [address] [place] [address] Referral ID Status Reason Start Date Expiration Date V isits Requested Visits Authorized [id number] New Request 01/26/2023 02/20/2024 1 1 Reason Comments Cystoscopy Specialty Diagnoses / Procedures Referred By Contac t Referred To Contact Urology Diagnoses SUNDI CYSTO/OK AT 12 ON 02.08.23 PER PRERNA ENCOUNTER Procedures FLEX CYSTOSCOPY [place], Matteo, MD [address] [place] [address] Bessy Garcia MD [address] [place] [phone] Referral ID Status Reason Start Date Expiration Date V isits Requested Visits Authorized [id number] New Request 02/08/2023 03/04/2024 1 1 Reason Comments increased blood sugar Reason Onset Date Comments Refill Request 03/14/2023 Reason Onset Date Comments Refill Request 04/23/2023 Reason Comments medication question Reason Comments F/U 6 months Labs prior Reason Onset Date Comments Refill Request 01/11/2024 Reason Onset Date Comments Refill Request 02/15/2024 Reason Comments Rash Rash on chest with n erve pain x 5 days Reason Comments Results Specialty Diagnoses / Procedures Referred By William alvarado Referred To Contact Urology Diagnoses JOSE CYSTO Procedures FLEX CYSTOSCOPY Matteo Rebollar MD [address] [place] [address] Bessy Garcia MD [address] [place] [phone] Referral ID Status Reason Start Date Expiration Date V isits Requested Visits Authorized [id number] New Request 04/03/2024 04/28/2025 1 1 Reason Onset Date Comments Refill Request 04/21/2024 Reason Onset Date Comments Refill Request 04/22/2024 Reason Comments Hospital F/U [facility] 06/04 - 06/06 Reason Onset Date Comments Refill Request 07/04/2024 Reason Comments Medicare Wellness Exam Reason Comments Medication Follow-up Reason Comments Medication Problem Specialty Diagnoses / Procedures Referred By William alvarado Referred To Contact Urology Diagnoses pt requested yearly cysto for survailance Procedures FLEX CYSTOSCOPY Matteo Rebollar MD Phone: tel: fax: Bessy Garcia MD [address] [place] [address] Phone: tel: fax: Referral ID Status Reason Start Date Expiration Date V isits Requested Visits Authorized [id number] New Request 04/02/2025 04/27/2026 1 1 Care Teams (unrecognized sec tion and content) Main Line Assembler Relationship Specialty Start Date End Date Matteo Rebollar MD [address] [place] [address] PCP - General 03/28/10 Main Line Assembler Relationship Specialty Start Date End Date Matteo Rebollar MD [address] [place] [address] PCP - General 03/28/10 Main Line Assembler Relationship Specialty Start Date End Date Matteo Rebollar MD [address] [place] [address] PCP - General 03/28/10 Main Line Assembler Relationship Specialty Start Date End Date Matteo Rebollar MD [address] [place] [address] [place] [address] PCP - General 03/28/10 Main Line Assembler Relationship Specialty Start Date End Date Matteo Rebollar MD [address] [place] [address] [place] [address] PCP - General 03/28/10 Main Line Assembler Relationship Specialty Start Date End Date Matteo Rebollar MD [address] [place] [address], [place] [address] PCP - General 03/28/10 Main Line Assembler Relationship Specialty Start Date End Date Matteo Rebollar MD [address] [place] [address] [place] [address] PCP - General 03/28/10 Main Line Assembler Relationship Specialty Start Date End Date Matteo Rebollar MD [address] [place] [address] [place] [address] PCP - General 03/28/10 Main Line Assembler Relationship Specialty Start Date End Date Matteo Rebollar MD [address] [place] [address] PCP - General 03/28/10 Main Line Assembler Relationship Specialty Start Date End Date Matteo Rebollar MD [address] [place], [place] [id number] PCP - General 03/28/10 Team Status: Active Member Role Status Dates Dr. Matteo Rebollar MD Family Provider Active Dr. Matteo Rebollar MD Primary Care Provider Active Team Status: Active Member Role Status Dates Dr. Matteo Rebollar MD Primary Care Provider Active Dr. Allan Gomes MD Attending Provider Active Team Status: Inactive Member Role Status Dates Dr. Matteo Rebollar MD Primary Care Provider Active Dr. Jalil Goel MD Attending Provider Active Team Status: Active Member Role Status Dates Dr. Matteo Rebollar MD Primary Care Provider Active Dr. Teo Ross MD Attending Provider, Referr ing Provider Active Team Status: Active Member Role Status Dates Dr. Matteo Rebollar MD Primary Care Provider Active Dr. Allan Gomes MD Attending Provider Active Dr. Jalil Goel MD Referring Provider Active Team Status: Inactive Member Role Status Dates Dr. Matteo Rebollar MD Primary Care Provider Active Dr. Teo Ross MD Attending Provider, Referr ing Provider Active Team Status: Inactive Member Role Status Dates Dr. Matteo Rebollar MD Primary Care Provider, Referr ing Provider Active Dr. Allan Gomes MD Attending Provider Active Team Status: Inactive Member Role Status Dates Dr. Matteo Rebollar MD Primary Care Provider Active Dr. Allan Gomes MD Attending Provider, Referring Provider Active Main Line Assembler Relationship Specialty Start Date End Date Matteo Rebollar MD [address] [place] [id number] PCP - General Internal Medicine 01/01/23 Robby Benitez [facility] [address], [place] [address] Oncologist Medical Oncology 01/01/23 Myriam Major, RN Registered Nurse 01/01/23 Main Line Assembler Relationship Specialty Start Date End Date Matteo Rebollar MD [address] [place] [id number] PCP - General Internal Medicine 01/01/23 Robby Benitez [facility] [address], [place] [id number] Oncologist Medical Oncology 01/01/23 Myriam Major, RN Registered Nurse 01/01/23 Team Status: Inactive Member Role Status Dates Dr. Matteo Rebollar MD Primary Care Provider, Referr ing Provider Active Dr. Robby Benitez MD Attending Provider Active Team Status: Inactive Member Role Status Dates Dr. Matteo Rebollar MD Primary Care Provider, Referr ing Provider Active Yecenia Wilson BREAD DISTRIBUTOR, BREAD DISTRIBUTOR-C Attending Provider Active Team Status: Active Member Role Status Dates Dr. Matteo Rebollar MD Primary Care Provider Active Dr. Allan Gomes MD Attending Provid er, Referring Provider, Other Provider Active Team Status: Inactive Member Role Status Dates Dr. Matteo Rebollar MD Primary Care Provider Active Dr. Robby Benitez MD Attending Provider, Referrin g Provider Active Team Status: Active Member Role Status Dates Dr. Matteo Rebollar MD Primary Care Provider Active Dr. Robby Benitez MD Attending Provider, Referrin g Provider Active Main Line Assembler Relationship Specialty Start Date End Date Matteo Rebollar MD [address] [place], [place] [address] PCP - General 03/28/10 Team Status: Inactive Member Role Status Dates Dr. Matteo Rebollar MD Primary Care Provider Active Dr. Teo Ross MD Admit Provid er, Attending Provider, Referring Provider Active Main Line Assembler Relationship Specialty Start Date End Date Matteo Rebollar MD [address] [place], [place] [address] PCP - General 03/28/10 Main Line Assembler Relationship Specialty Start Date End Date Matteo Rebollar MD [address] [place], [place] [address] PCP - General 03/28/10 Team Status: Active Member Role Status Dates Dr. Matteo Rebollar MD Primary Care Provider Active Dr. Mohsen Singletary MD Attending Provider Active Dr. Teo Ross MD Referring Provider Active Team Status: Inactive Member Role Status Dates Dr. Matteo Rebollar MD Primary Care Provider Active Dr. Jim Ward DO Attending Provider Active Dr. Teo Ross MD Referring Provider Active Team Status: Inactive Member Role Status Dates Dr. Matteo Rebollar MD Primary Care Provider Active Dr. Jim Ward DO Attending Provider Active Team Status: Active Member Role Status Dates Dr. Matteo Rebollar MD Primary Care Provider Active Dr. Jim Ward DO Attending Provider Active Team Status: Active Member Role Status Dates Dr. Matteo Rebollar MD Primary Care Provider Active Dr. Robby Benitez MD Attending Provider, Referrin g Provider Active Dr. Jim Ward DO Active Main Line Assembler Relationship Specialty Start Date End Date Matteo Rebollar MD [address] [place] [address] PCP - General 03/28/10 Main Line Assembler Relationship Specialty Start Date End Date Matteo Rebollar MD [address] [place], [place] [address] PCP - General 03/28/10 Main Line Assembler Relationship Specialty Start Date End Date Matteo Rebollar MD [address] [place] [address] PCP - General 03/28/10 Main Line Assembler Relationship Specialty Start Date End Date Matteo Rebollar MD [address] [facility] [place] [address] PCP - General 03/28/10 Main Line Assembler Relationship Specialty Start Date End Date Matteo Rebollar MD [address] [place] [address] PCP - General 03/28/10 Main Line Assembler Relationship Specialty Start Date End Date Matteo Rebollar MD [address] [place] [address] PCP - General Internal Medicine 01/01/23 Robby Benitez, [facility] [address] [place] [address] Oncologist Medical Oncology 01/01/23 Myriam Major, RN Registered Nurse 01/01/23 Main Line Assembler Relationship Specialty Start Date End Date Matteo Rebollar MD [address] [place] [address] PCP - General 03/28/10 Main Line Assembler Relationship Specialty Start Date End Date Matteo Rebollar MD [address] [facility] [address] PCP - General 03/28/10 Main Line Assembler Relationship Specialty Start Date End Date Matteo Rebollar MD [address] [facility] [place] [address] PCP - General 03/28/10 Main Line Assembler Relationship Specialty Start Date End Date Matteo Rebollar MD [address] [facility] [place] [address] PCP - General 03/28/10 Main Line Assembler Relationship Specialty Start Date End Date Matteo Rebollar MD [address] [facility] [place] [address] PCP - General 03/28/10 Main Line Assembler Relationship Specialty Start Date End Date Matteo Rebollar MD [address] [facility] [place] [address] PCP - General 03/28/10 Main Line Assembler Relationship Specialty Start Date End Date Matteo Rebollar MD [address] [facility] [place] [address] PCP - General 03/28/10 Angely Clements, COMMISSARY PRODUCTION SUPERVISOR.THREAD SPINNER [address] [facility] [place] [address] Information Systems Administrator Internal Medicine 08/18/24 Dixon Rosen COMMISSARY PRODUCTION SUPERVISOR.COUNSEL [address] [place] [address] Information Systems Administrator Internal Medicine 08/18/24 Main Line Assembler Relationship Specialty Start Date End Date Matteo Rebollar MD [address] [facility] [place] [address] PCP - General 03/28/10 Angely Clements APRN.THREAD SPINNER [address] [facility] [place] [address] Information Systems Administrator Internal Medicine 08/18/24 Dixon Rosen COMMISSARY PRODUCTION SUPERVISOR.COUNSEL [address] [facility] [place] [address] Information Systems Administrator Internal Medicine 08/18/24 Main Line Assembler Relationship Specialty Start Date End Date Matteo Rebollar MD [address] [place] [address] PCP - General 03/28/10 Dixon Rosen COMMISSARY PRODUCTION SUPERVISOR.COUNSEL [address] [place] [address] Information Systems Administrator Internal Medicine 12/02/24 Angely Clements, COMMISSARY PRODUCTION SUPERVISOR.THREAD SPINNER [address] [place] [address] Information Systems Administrator Internal Medicine 01/28/25 Main Line Assembler Relationship Specialty Start Date End Date Matteo Rebollar MD [address] [place] [address] PCP - General 03/28/10 Dixon Rosen COMMISSARY PRODUCTION SUPERVISOR.COUNSEL [address] [place] [address] Information Systems Administrator Internal Medicine 12/02/24 Angely Clements, COMMISSARY PRODUCTION SUPERVISOR.THREAD SPINNER [address] [place] [address] Information Systems Administrator Internal Medicine 01/28/25 Team Status: Active Member Role Status Dates Dr. Matteo Rebollar MD Primary Care Provider Active Team Status: Inactive Member Role Status Dates Dr. Matteo Rebollar MD Primary Care Provider Active Start: December 01, 2024 End: December 01, 2024 Dr. Matteo Rebollar MD Referring Provider Active Start: December 01, 2024 End: December 01, 2024 Dr. Jim Ward DO Attending Provider Active Start: December 01, 2024 End: December 01, 2024 Team Status: Active Member Role Status Dates Dr. Matteo Rebollar MD Primary Care Provider Active Start: February 16, 2025 Dr. Robby Benitez MD Attending Provider Active Start: February 16, 2025 Dr. Robby Benitez MD Referring Provider Active Start: February 16, 2025 Dr. Jim Ward DO Other Provider Active Sta rt: February 16, 2025 Dixon Rosen BREAD DISTRIBUTOR, BREAD DISTRIBUTOR-C Other Provider Active Star t: February 16, 2025 Team Status: Inactive Member Role Status Dates Dr. Matteo Rebollar MD Primary Care Provider Active Start: February 16, 2025 End: February 16, 2025 Dr. Robby Benitez MD Attending Provider Active Start: February 16, 2025 End: February 16, 2025 Dr. Robby Benitez MD Referring Provider Active Start: February 16, 2025 End: February 16, 2025 Main Line Assembler Relationship Specialty Start Date End Date Matteo Rebollar MD [address] [place], [place] [id number] PCP - General 03/28/10 Dixon Rosen COMMISSARY PRODUCTION [email or web address] [address] [place], [place] [id number] Information Systems Administrator Internal Medicine 12/02/24 Angely Clements APRN.THREAD SPINNER [address] [place], [place] [address] [facility] Internal Medicine 01/28/25 Team Status: Inactive Member Role Status Dates Dr. Matteo Rebollar MD Primary Care Provider Active Start: March 05, 2025 End: March 05, 2025 Dr. Matteo Rebollar MD Referring Provider Active Start: March 05, 2025 End: March 05, 2025 Dr. Robby Benitez MD Attending Provider Active Start: March 05, 2025 End: March 05, 2025 Team Status: Active Member Role/Relationship Status Dates Dr. Matteo Rebollar MD Primary Care Provider Active Team Status: Inactive Member Role/Relationship Status Dates Dr. Matteo Rebollar MD Primary Care Provider Active Start: December 01, 2024 End: December 01, 2024 Dr. Matteo Rebollar MD Referring Provider Active Start: December 01, 2024 End: December 01, 2024 Dr. Jim Ward DO Attending Provider Active Start: December 01, 2024 End: December 01, 2024 Team Status: Active Member Role/Relationship Status Dates Dr. Matteo Rebollar MD Primary Care Provider Active Start: February 16, 2025 Dr. Robby Benitez MD Attending Provider Active Start: February 16, 2025 Dr. Robby Benitez MD Referring Provider Active Start: February 16, 2025 Dr. Jim Ward DO Other Provider Active Sta rt: February 16, 2025 Dixon Rosen BREAD DISTRIBUTOR, BREAD DISTRIBUTOR-C Other Provider Active Star t: February 16, 2025 Team Status: Inactive Member Role/Relationship Status Dates Dr. Matteo Rebollar MD Primary Care Provider Active Start: February 16, 2025 End: February 16, 2025 Dr. Robby Benitez MD Attending Provider Active Start: February 16, 2025 End: February 16, 2025 Dr. Robby Benitez MD Referring Provider Active Start: February 16, 2025 End: February 16, 2025 Team Status: Inactive Member Role/Relationship Status Dates Dr. Matteo Rebollar MD Primary Care Provider Active Start: March 05, 2025 End: March 05, 2025 Dr. Matteo Rebollar MD Referring Provider Active Start: March 05, 2025 End: March 05, 2025 Dr. Robby Benitez MD Attending Provider Active Start: March 05, 2025 End: March 05, 2025 Team Status: Inactive Member Role/Relationship Status Dates Dr. Matteo Rebollar MD Primary Care Provider Active Start: March 09, 2025 End: March 09, 2025 Dr. Anthony Ghosh MD Attending Provider Active Start: March 09, 2025 End: March 09, 2025 Dr. Robby Benitez MD Referring Provider Active Start: March 09, 2025 End: March 09, 2025 Team Status: Inactive Member Role/Relationship Status Dates Dr. Matteo Rebollar MD Primary Care Provider Active Start: March 17, 2025 End: March 17, 2025 Dr. Matteo Rebollar MD Referring Provider Active Start: March 17, 2025 End: March 17, 2025 Dr. See Erickson MD Attending Provider Active Start: March 17, 2025 End: March 17, 2025 Main Line Assembler Relationship Specialty Start Date End Date Matteo Rebollar MD PCP - General Internal Medicine 01/01/23 Robby Benitez MB [facility] [address] [place] [address] Oncologist Medical Oncology 01/01/23 Jim Ward DO [address] [id number] Radiation Oncologist Radiation Oncology 06/03/24 Team Status: Active Member Role/Relationship Status Dates Dr. Matteo Rebollar MD Primary care physician Active Team Status: Active Member Role/Relationship Status Dates Dr. Matteo Rebollar MD Primary care physician Active Start: February 16, 2025 Dr. Robby Benitez MD Attending physician Active Start: February 16, 2025 Dr. Robby Benitez MD Referring Provider Active Start: February 16, 2025 Dr. Jim Ward DO Nurse Practitioner Active Start: February 16, 2025 Dixon Rosen BREAD DISTRIBUTOR, BREAD DISTRIBUTOR-C Nurse Practitioner Active Start: February 16, 2025 Team Status: Inactive Member Role/Relationship Status Dates Dr. Matteo Rebollar MD Primary care physician Active Start: February 16, 2025 End: February 16, 2025 Dr. Robby Benitez MD Attending physician Active Start: February 16, 2025 End: February 16, 2025 Dr. Robby Benitez MD Referring Provider Active Start: February 16, 2025 End: February 16, 2025 Team Status: Inactive Member Role/Relationship Status Dates Dr. Matteo Rebollar MD Primary care physician Active Start: March 05, 2025 End: March 05, 2025 Dr. Matteo Rebollar MD Referring Provider Active Start: March 05, 2025 End: March 05, 2025 Dr. Robby Benitez MD Attending physician Active Start: March 05, 2025 End: March 05, 2025 Team Status: Inactive Member Role/Relationship Status Dates Dr. Matteo Rebollar MD Primary care physician Active Start: March 09, 2025 End: March 09, 2025 Dr. Anthony Ghosh MD Attending physician Active Start: March 09, 2025 End: March 09, 2025 Dr. Robby Benitez MD Referring Provider Active Start: March 09, 2025 End: March 09, 2025 Team Status: Inactive Member Role/Relationship Status Dates Dr. Matteo Rebollar MD Primary care physician Active Start: March 17, 2025 End: March 17, 2025 Dr. Matteo Rebollar MD Referring Provider Active Start: March 17, 2025 End: March 17, 2025 Dr. See Erickson MD Attending physician Active Start: March 17, 2025 End: March 17, 2025 Team Status: Inactive Member Role/Relationship Status Dates Dr. Matteo Rebollar MD Primary care physician Active Start: June 01, 2025 End: June 01, 2025 Dr. Jim Ward DO Attending physician Active Start: June 01, 2025 End: June 01, 2025 Goals (unrecognized section and content) Goals may be documented in a n alternate section FOR RECORDS PERTAINING TO PATIENTS WHO ARE OR HAVE BEEN ENROLLED IN A CHEMICAL DEPENDENCY/SUBSTANCEABUSE PROGRAM, SOME INFORMATION MAY BE OMITTED. This clinical summary was aggregated from multiple sources. Caution should be exercised in using it in the provision of clinical care. This summary normalizes information from multiple sources, and as a consequence, information in this document may materially change the coding, format and clinical context of patient data. In addition, data may be omitted in some cases. CLINICAL DECISIONS SHOULD BE BASED ON THE PRIMARY CLINICAL RECORDS. [employer] provides no warranty or guarantee of the accuracy or completeness of information in this document.
[2025-08-20 08:20] LABS: CREATININE FINGERSTICK < 1.0 mg/dL (0.70-1.30); EGFR FINGERSTICK > 60.0000 mL/min (>60)
== END | disposition home or self-care (01) ==
PROVIDERS: PCP Internal Medicine; Referring Provider Internal Medicine Hematology & Oncology; Visit Provider Internal Medicine Hematology & Oncology
DX: C67.8 Malignant neoplasm of overlapping sites of bladder (principal); C77.4 Secondary and unspecified malignant neoplasm of inguinal and lower limb lymph nodes
CPT/HCPCS: 71260; 74177; Q9967; A4216